=== PATIENT | female | born 1935 | race Caucasian/White ===

== ENCOUNTER 2016-06-07 11:15 | Inpatient (IN) | payer BC, OTHER ==
[~2016-06-07] VITALS: Ht 162.6 cm; Wt 67.0 kg
[~2016-06-07 11:15] MED LIST: ACET500C6 PO; ALBU1AER9 INH; BACL10TA PO; BIOT1TAB5 PO; BUDE0.5S NEB; CHOL2000 PO; DILT120C51 PO; DOCU-94 PO; IPRASOL4 INH; ONDA4TAB46 PO; OXGN; POLY335040 PO; PRED-603 PO; PRED20TA PO; PRLSR20 PO; SENN-61 PO; SERT1TAB88 PO; TPRSR/50 PO; TRAM-10 PO; WARF5TAB90 PO; ZAFI1TAB10 PO
[2016-06-07] MEDS ORDERED: METHYLPREDNISOLONE 125 MG VIAL IV STA (12:00)
--- NOTE | 2016-06-07 12:08 | EMERGENCY ROOM VISIT NOTE ---
History Report prepared by Hiram: Katt Silva Under the Supervision of: Dr. Freddy Forde M.D. First contact with patient: 11:53 Chief Complaint: REFERRED BY DOCTOR Stated Complaint: INFECTION History of Present Illness The patient is a 80 year old female who presents to the Emergency Room with complaints of persistent shortness of breath that began May 18. She currently rates her discomfort as a 6/10 in severity. The patient states that she has a history of COPD and states that she has taken two rescue kits since May 18. She states that her symptoms have persisted and her PCP does not want her to use a third. The patient states that her PCP referred her to the emergency department for IV antibiotics, but she denies having any lab work or chest x-rays prior to arrival. She states that she has been taking five breathing treatments at home per day. The patient notes a productive cough. She states that she wears supplemental oxygen at night. Source of History: patient Onset: May 18 Position: other (global) Symptom Intensity: 6/10 Quality: other (shortness of breath) Timing: other (persistent) Associated Symptoms: + cough Review of Systems See HPI for pertinent positives & negatives. A total of 10 systems reviewed and were otherwise negative. Past Medical & Surgical Medical Problems: (1) Bronchiectasis (2) COPD, severe (3) GERD (gastroesophageal reflux disease) (4) HTN (hypertension) (5) Paroxysmal a-fib Surgical Problems: (1) H/O hernia repair (2) H/O: hysterectomy (3) History of cataract surgery (4) History of cholecystectomy (5) S/P lobectomy of lung Family History Diabetes mellitus Hypertension Social History Smoking Status: Never Smoker Alcohol Use: none Drug Use: none Marital Status: Housing Status: lives with significant other Occupation Status: retired Current/Historical Medications Scheduled Biotin (Biotin), 1,000 MCG PO QPM Budesonide Soln (Pulmicort Respules 0.5MG/2ML), 1 VIAL NEB BID Dvgzmru-Tufuulfqq-Wqog (Calcium Magnesium & Zinc), 1 TAB PO DAILY Cholecalciferol (Vitamin D3), 2,000 INTER.UNIT PO QPM Diltiazem Hcl Coated Beads (Cardizem Cd), 240 MG PO DAILY Docusate Sodium (Colace), 100 MG PO BID Metoprolol Succinate (Metoprolol Succinate ER), 50 MG PO QAM Omeprazole (Prilosec), 20 MG PO QAM Oxygen (Oxygen), 2 LITERS NA HS Polyethylene (Miralax Powder Packet), 17 GM PO BID Senna (Senokot), 1 TAB PO QAM Sertraline HCl (Sertraline HCl), 25 MG PO QAM Warfarin Sodium (Coumadin), 5 MG PO DAILY Zafirlukast (Accolate), 20 MG PO BID Scheduled PRN Acetaminophen (Acetaminophen), 1,000 MG PO Q8 PRN for Pain Albuterol (Proair Hfa), 2 PUFFS INH Q6H PRN for SOB/Wheezing Doxycycline Hyclate (Doxycycline Hyclate), 100 MG PO BID PRN for COPD rescue kit Ipratropium-Albuterol (Duoneb), 1 TREATMENT INH Q6H PRN for SOB/Wheezing Ondansetron Hcl (Zofran), 4 MG PO for Nausea Prednisone (Deltasone), 20 MG PO UD PRN for COPD rescue kit Allergies Coded Allergies: Ciprofloxacin (Verified Allergy, Intermediate, hives, itching, 04/27/16) Amoxicillin (Verified Allergy, Mild, itching,TOLERATING ZOSYN 01/04/14, 04/27) Clavulanic Acid (Verified Allergy, Mild, ITCHING,TOLERATING ZOSYN 01/04/14 , 04/27/16) Alendronate (Verified Adverse Reaction, Unknown, feet and hand pain, ) Levofloxacin (Verified Adverse Reaction, Unknown, muscle pain, 04/27/16) Physical Exam Vital Signs Date Time Temp Pulse Resp B/P Pulse Ox O2 Delivery O2 Flow Rate FiO2 06/07/16 14:35 79 17 159/95 95 06/07/16 13:58 79 06/07/16 13:51 79 17 159/95 95 Nasal Cannula 2.0 06/07/16 12:21 82 18 145/90 94 Nasal Cannula 2.0 06/07/16 12:19 84 06/07/16 11:21 37.0 88 22 163/87 93 Physical Exam GENERAL: Patient is chronically unwell appearing. HEENT: No acute trauma, normocephalic atraumatic, mucous membranes moist, no nasal congestion, no scleral icterus. NECK: No stridor, no adenopathy, no meningismus, trachea is midline. LUNGS: Diffuse loud wheezing and junky cough noted. Dyspneic appearing. HEART: Regular rate and rhythm. No murmurs, rubs, gallops appreciated. ABDOMEN: Soft, nontender, bowel sounds positive, no masses appreciated, no peritonitis. BACK: No midline tenderness, no CVA tenderness EXTREMITIES: Normal motion all extremities, no cyanosis, no edema. NEUROLOGIC: Alert and oriented, no acute motor or sensory deficits, no focal weakness, cranial nerves grossly intact. SKIN: No rash, no jaundice, no diaphoresis. Medical Decision & Procedures ER Provider Diagnostic Interpretation: X ray results are stated below per my interpretation and the radiologist's interpretation. CHEST ONE VIEW PORTABLE CLINICAL HISTORY: Shortness of breath. COMPARISON STUDY: Chest radiograph February 19, 2016. FINDINGS: There is no pneumothorax. A right lower hemithorax partially calcified abnormality is unchanged. Blunting of both costophrenic angles is chronic. Cardiomediastinal silhouette is stable. Mild interstitial thickening is unchanged. There is no evidence for pulmonary edema. IMPRESSION: No acute findings. No change in appearance of the chest. Electronically signed by: Suraj Pope M.D. 06/07/2016 12:49 PM Dictated Date/Time: 06/07/2016 12:47 PM Laboratory Results 06/07/16 12:55 Red Blood Count 4.18, Mean Corpuscular Volume 98.3, Mean Corpuscular Hemoglobin 32.3, Mean Corpuscular Hemoglobin Concent 32.8, Mean Platelet Volume 10.0, Neutrophils (%) (Auto) 83.5, Lymphocytes (%) (Auto) 5.5, Monocytes (%) (Auto) 6.6, Eosinophils (%) (Auto) 0.0, Basophils (%) (Auto) 0.2, Neutrophils # (Auto) 7.62, Lymphocytes # (Auto) 0.50, Monocytes # (Auto) 0.60, Eosinophils # (Auto) 0.00, Basophils # (Auto) 0.02 06/07/16 12:55 Test 06/07/16 12:55 06/07/16 13:03 White Blood Count 9.12 K/uL (4.8-10.8) Red Blood Count 4.18 M/uL (4.2-5.4) Hemoglobin 13.5 g/dL (12.0-16.0) Hematocrit 41.1 % (37-47) Mean Corpuscular Volume 98.3 fL (80-100) Mean Corpuscular Hemoglobin 32.3 pg (25-34) Mean Corpuscular Hemoglobin Concent 32.8 g/dl (32-36) Platelet Count 176 K/uL (130-400) Mean Platelet Volume 10.0 fL (7.4-10.4) Neutrophils (%) (Auto) 83.5 % Lymphocytes (%) (Auto) 5.5 % Monocytes (%) (Auto) 6.6 % Eosinophils (%) (Auto) 0.0 % Basophils (%) (Auto) 0.2 % Neutrophils # (Auto) 7.62 K/uL (1.4-6.5) Lymphocytes # (Auto) 0.50 K/uL (1.2-3.4) Monocytes # (Auto) 0.60 K/uL (0.11-0.59) Eosinophils # (Auto) 0.00 K/uL (0-0.5) Basophils # (Auto) 0.02 K/uL (0-0.2) RDW Standard Deviation 61.6 fL (36.4-46.3) RDW Coefficient of Variation 17.2 % (11.5-14.5) Immature Granulocyte % (Auto) 4.2 % Immature Granulocyte # (Auto) 0.38 K/uL (0.00-0.02) Nucleated RBC Absolute Count (auto) 0.16 K/uL (0-0) Nucleated Red Blood Cells % 1.8 % Prothrombin Time 16.2 SECONDS (9.0-12.0) Prothromb Time International Ratio 1.5 (0.9-1.1) Anion Gap 12.0 mmol/L (3-11) Est Creatinine Clear Calc Drug Dose 73.0 ml/min Estimated GFR () 99.6 Estimated GFR (Non- 85.9 BUN/Creatinine Ratio 17.6 (10-20) Calcium Level 8.3 mg/dl (8.5-10.1) Total Creatine Kinase 36 U/L (26-192) Creatine Kinase MB 1.6 ng/ml (0.5-3.6) Creatine Kinase MB Ratio 4.4 (0-3.0) Troponin I < 0.015 ng/ml (0-0.045) Bedside Lactic Acid Venous 3.43 mmol/L (0.90-1.70) Laboratory results as reviewed by me. Medications Administered Medications (Trade) Dose Ordered Sig/Toro Route Start Time Stop Time Status Last Admin Dose Admin Methylprednisolone Sodium Succinate (Solu-Medrol IV) 125 mg NOW STAT IV 06/07/16 12:00 06/07/16 12:02 DC 06/07/16 12:29 125 MG ECG Indication: SOB/dyspnea Rate (beats per minute): 82 Rhythm: normal sinus Findings: PVC, no acute ischemic change ED Course 1156: The patient was evaluated in room A3. A complete history and physical exam was performed. 1200: Ordered Solu-Medrol IV 125 mg IV. 1300: Ordered Doxycycline Hyclate 100 mg/Dextrose 110 ml @ 50 mls/hr IV. 1308: I discussed the patient's case with Lamine Casillas. She is going to evaluate the patient for further treatment. Medical Decision Differential: Infectious, Reactive Airway Disease, Pneumonia, Pneumothorax, COPD , CHF, ACS, Pulmonary Embolism, MSK, GI, Dissection, amongst other etiologies entertained. 80 yr old female arrives with complaint of shortness of breath despite multiple rounds of steroids as outpatient. Due to hospital being full patient was sent to ED to be admitted as unable to do direct admit. She is stable though lungs sound quite poor. No clear evidence sepsis but will send of cultures prior to starting IV abx (go with Nicole given her allergy history). She has failed outpatient COPD treatment thus this seems reasonable to bring in to hospital. No evidence of CHF, ACS and with history I do not feel this represents PE. Consults Time Called: 1306 Consulting Physician: Lamine Casillas Returned Call: 1308 I discussed the patient's case with Lamine Casillas. She is going to evaluate the patient for further treatment. Impression Primary Impression: COPD exacerbation Additional Impression: Failure of outpatient treatment Scribe Attestation The scribe's documentation has been prepared under my direction and personally reviewed by me in its entirety. I confirm that the note above accurately reflects all work, treatment, procedures, and medical decision making performed by me. Departure Information Dispostion Being Evaluated By Hospitalist Referrals Mamadou Torre M.D. ([facility]) (PCP) Problem Qualifiers
--- NOTE | 2016-06-07 12:50 | DIAGNOSTIC IMAGING REPORT ---
CHEST ONE VIEW PORTABLE CLINICAL HISTORY: Shortness of breath. COMPARISON STUDY: Chest radiograph February 19, 2016. FINDINGS: There is no pneumothorax. A right lower hemithorax partially calcified abnormality is unchanged. Blunting of both costophrenic angles is chronic. Cardiomediastinal silhouette is stable. Mild interstitial thickening is unchanged. There is no evidence for pulmonary edema. IMPRESSION: No acute findings. No change in appearance of the chest. Electronically signed by: Suraj Pope M.D. 06/07/2016 12:49 PM Dictated Date/Time: 06/07/2016 12:47 PM
[2016-06-07] MEDS ORDERED: NAPR1TAB9 PO (12:55)
[2016-06-07] MEDS ORDERED: DOXYCYCLINE IV 100 MG in DEXTROSE 5% 100ML 100 ML IV SCH (13:00)
[2016-06-07 13:05] LABS: BASO % 0.2 %; BASO ABS # 0.02 K/uL (0-0.2); COMPLETE YES; HEMATOCRIT 41.1 % (37-47); IG% 4.2 %; LYMPH % 5.5 %; MEAN CELL VOLUME 98.3 fL (80-100); MEAN CORPUSCULAR HEMOGLOBIN 32.3 pg (25-34); MEAN CORPUSCULAR HGB CONC 32.8 g/dl (32-36); MONO % 6.6 %; NEUT % 83.5 %; PLATELET COUNT 176 K/uL (130-400); RED BLOOD COUNT 4.18 M/uL (4.2-5.4); WHITE BLOOD COUNT 9.12 K/uL (4.8-10.8)
[2016-06-07 13:24] LABS: BLOOD UREA NITROGEN 11 mg/dl (7-18); BUN/CREATININE RATIO 17.6 (10-20); CALCIUM 8.3 mg/dl (8.5-10.1); CARBON DIOXIDE 29 mmol/L (21-32); CHLORIDE 98 mmol/L (98-107); CREATININE 0.63 mg/dl (0.60-1.20); GLUCOSE 267 mg/dl (70-99); POTASSIUM 3.9 mmol/L (3.5-5.1); SODIUM 139 mmol/L (136-145)
[2016-06-07 13:29] LABS: CKMB/CK RATIO 4.4 (0-3.0)
[2016-06-07] MEDS ORDERED: ONDANSETRON INJ 2 MG/ML 2 ML VIAL IV PRN (13:45)
[2016-06-07 14:35] VITALS: BP 166/89; PULSE 80; TEMP 37; O2SAT 98; BMI 25.7
[2016-06-07 14:42] LABS: INR 1.5 (0.9-1.1); PROTHROMBIN TIME (PATIENT) 16.2 SECONDS (9.0-12.0)
[2016-06-07] MEDS ORDERED: CALC1TAB27 PO (14:51)
[2016-06-07] MEDS ORDERED: DXY100 PO (14:51)
[2016-06-07] MEDS ORDERED: CEFTRIAXONE SOD INJ 1 GM in DEXTROSE 5% ADD-VANTAGE 50ML 50 ML IV SCH (15:30)
[2016-06-07] MEDS: ALBUT/IPRATROP 3MG/0.5MG NEB 3 ML VIAL INH SCH ×2 (15:30→19:52)
[2016-06-07 16:00] VITALS: O2SAT 98
[2016-06-07] MEDS ORDERED: AZITHROMYCIN IV 500 MG in DEXTROSE 5% 250ML 250 ML IV SCH (16:00)
--- NOTE | 2016-06-07 16:09 | History and Physical ---
History & Physical Date & Time of Service: Jun 07, 2016 at 15:50 Chief Complaint: Shortness of Breath Primary Care Physician: Mamadou Torre M.D.([facility]) History of Present Illness 80 year old female who was referred to the ER by her PCP for shortness of breath. Patient has severe COPD. She she reports she started getting sick a few weeks ago. She reports she has completed 2 rescue kits which include doxycycline and prednisone and recently started a 3rd. She also has been using her nebulizer routinely. Despite these treatments her shortness of breath continues. She also has had a cough productive for cream colored mucous. She reports constant chest heaviness the past two days. She reports mild lightheadedness and dizziness but no syncopal events. She denies fever and chills. No abdominal pain, nausea, vomiting, or diarrhea. She denies any urinary symptoms. In the ER, patient has conversational dyspnea. She was given solu-medrol 125mg IV. She is saturating well on 2L oxygen via NC. Past Medical/Surgical History Medical Problems: (1) Bronchiectasis Status: Chronic (2) COPD, severe Status: Chronic (3) GERD (gastroesophageal reflux disease) Status: Chronic (4) HTN (hypertension) Status: Chronic (5) Paroxysmal a-fib Status: Chronic Surgical Problems: (1) H/O hernia repair Status: Chronic (2) H/O: hysterectomy Status: Chronic (3) History of cataract surgery Status: Chronic (4) History of cholecystectomy Status: Chronic (5) S/P lobectomy of lung Status: Chronic Family History Diabetes mellitus MOTHER FH: CHF (congestive heart failure) MOTHER Social History Smoking Status: Never Smoker Alcohol Use: none Immunizations History of Influenza Vaccine: Yes Influenza Vaccine Date: Jan 17, 2016 History of Tetanus Vaccine?: Yes Tetanus Immunization Date: Nov 06, 2010 History of Pneumococcal: Yes Pneumococcal Date: Sep 23, 2014 Multi-Drug Resistant Organisms History of MDRO: No Allergies Coded Allergies: Ciprofloxacin (Verified Allergy, Intermediate, hives, itching, 04/27/16) Amoxicillin (Verified Allergy, Mild, itching,TOLERATING ZOSYN 01/04/14, 04/27) Clavulanic Acid (Verified Allergy, Mild, ITCHING,TOLERATING ZOSYN 01/04/14 , 04/27/16) Alendronate (Verified Adverse Reaction, Unknown, feet and hand pain, ) Levofloxacin (Verified Adverse Reaction, Unknown, muscle pain, 04/27/16) Home Medications Scheduled Biotin (Biotin), 1,000 MCG PO QPM Budesonide Soln (Pulmicort Respules 0.5MG/2ML), 1 VIAL NEB BID Vmrxwmb-Glwuwecro-Mphh (Calcium Magnesium & Zinc), 1 TAB PO DAILY Cholecalciferol (Vitamin D3), 2,000 INTER.UNIT PO QPM Diltiazem Hcl Coated Beads (Cardizem Cd), 240 MG PO DAILY Docusate Sodium (Colace), 100 MG PO BID Metoprolol Succinate (Metoprolol Succinate ER), 50 MG PO QAM Omeprazole (Prilosec), 20 MG PO QAM Oxygen (Oxygen), 2 LITERS NA HS Polyethylene (Miralax Powder Packet), 17 GM PO BID Senna (Senokot), 1 TAB PO QAM Sertraline HCl (Sertraline HCl), 25 MG PO QAM Warfarin Sodium (Coumadin), 5 MG PO DAILY Zafirlukast (Accolate), 20 MG PO BID Scheduled PRN Acetaminophen (Acetaminophen), 1,000 MG PO Q8 PRN for Pain Albuterol (Proair Hfa), 2 PUFFS INH Q6H PRN for SOB/Wheezing Doxycycline Hyclate (Doxycycline Hyclate), 100 MG PO BID PRN for COPD rescue kit Ipratropium-Albuterol (Duoneb), 1 TREATMENT INH Q6H PRN for SOB/Wheezing Ondansetron Hcl (Zofran), 4 MG PO for Nausea Prednisone (Deltasone), 20 MG PO UD PRN for COPD rescue kit Review of Systems 10 point review of systems was completed with the pertinent positives and negatives noted per the HPI Physical Exam Vital Signs Date Time Temp Pulse Resp B/P Pulse Ox O2 Delivery O2 Flow Rate FiO2 06/07/16 14:35 79 17 159/95 95 06/07/16 13:58 79 06/07/16 13:51 79 17 159/95 95 Nasal Cannula 2.0 06/07/16 12:21 82 18 145/90 94 Nasal Cannula 2.0 06/07/16 12:19 84 06/07/16 11:21 37.0 88 22 163/87 93 General Appearance: + mild distress (conversational dyspnea) Head: normocephalic Eyes: normal inspection ENT: hearing grossly normal Neck: supple, no JVD Respiratory/Chest: + respiratory distress (mild conversational dyspnea, saturating well on 2L), + decreased breath sounds, + rhonchi, + wheezing ( expiratory) Cardiovascular: regular rate, rhythm, + pertinent finding (trace edema BLLE) Abdomen/GI: normal bowel sounds, non tender, soft Extremities/Musculoskelatal: normal inspection, no calf tenderness Neurologic/Psych: no motor/sensory deficits, alert, normal mood/affect, oriented x 3 Skin: normal color, warm/dry Diagnostics Laboratory Results Results Past 24 Hours Test 06/07/16 12:55 06/07/16 13:03 06/07/16 15:38 Range/Units White Blood Count 9.12 4.8-10.8 K/uL Red Blood Count 4.18 4.2-5.4 M/uL Hemoglobin 13.5 12.0-16.0 g/dL Hematocrit 41.1 37-47 % Mean Corpuscular Volume 98.3 80-100 fL Mean Corpuscular Hemoglobin 32.3 25-34 pg Mean Corpuscular Hemoglobin Concent 32.8 32-36 g/dl Platelet Count 176 130-400 K/uL Mean Platelet Volume 10.0 7.4-10.4 fL Neutrophils (%) (Auto) 83.5 % Lymphocytes (%) (Auto) 5.5 % Monocytes (%) (Auto) 6.6 % Eosinophils (%) (Auto) 0.0 % Basophils (%) (Auto) 0.2 % Neutrophils # (Auto) 7.62 1.4-6.5 K/uL Lymphocytes # (Auto) 0.50 1.2-3.4 K/uL Monocytes # (Auto) 0.60 0.11-0.59 K/uL Eosinophils # (Auto) 0.00 0-0.5 K/uL Basophils # (Auto) 0.02 0-0.2 K/uL RDW Standard Deviation 61.6 36.4-46.3 fL RDW Coefficient of Variation 17.2 11.5-14.5 % Immature Granulocyte % (Auto) 4.2 % Immature Granulocyte # (Auto) 0.38 0.00-0.02 K/uL Nucleated RBC Absolute Count (auto) 0.16 0-0 K/uL Nucleated Red Blood Cells % 1.8 % Prothrombin Time 16.2 9.0-12.0 SECONDS Prothromb Time International Ratio 1.5 0.9-1.1 Sodium Level 139 136-145 mmol/L Potassium Level 3.9 3.5-5.1 mmol/L Chloride Level 98 98-107 mmol/L Carbon Dioxide Level 29 21-32 mmol/L Anion Gap 12.0 3-11 mmol/L Blood Urea Nitrogen 11 7-18 mg/dl Creatinine 0.63 0.60-1.20 mg/dl Est Creatinine Clear Calc Drug Dose 73.0 ml/min Estimated GFR () 99.6 Estimated GFR (Non- 85.9 BUN/Creatinine Ratio 17.6 10-20 Random Glucose 267 70-99 mg/dl Calcium Level 8.3 8.5-10.1 mg/dl Total Creatine Kinase 36 26-192 U/L Creatine Kinase MB 1.6 0.5-3.6 ng/ml Creatine Kinase MB Ratio 4.4 0-3.0 Troponin I < 0.015 0-0.045 ng/ml Bedside Lactic Acid Venous 3.43 0.90-1.70 mmol/L Microbiology Results 06/07/16 Blood Culture, Received Pending 06/07/16 Blood Culture, Received Pending Diagnostic Radiology CXR IMPRESSION: No acute findings. No change in appearance of the chest. Impression Assessment and Plan COPD EXACERBATION - admit to tele - presenting with increasing cough and shortness of breath x 3 weeks despite use of outpatient rescue kit of prednisone and doxycycline - saturating well on 2L - at home only wears 2L HS; may need O2 eval before discharge - around the clock steroids and nebs, continue home inhaled corticosteroid - no pneumonia on CXR; will use empiric azithromycin and Rocephin - flu PCR swab CHEST PAIN - likely due to COPD exacerbation - EKG shows ST depressions laterally - likely due to hypoxia/SOB - initial trop negative, will continue to trend - recheck EKG in AM LACTIC ACIDEMIA - POC lactic acid 3.4 - likely due to hypoxia - will check serum - IVF - do not suspect sepsis - afebrile, normal WBC, no tachycardia PAROXYSMAL A FIB - currently in NSR - rate controlled on metoprolol and cardizem - continue both - on Coumadin, INR 1.5; will increase Coumadin DVT PROPHYLAXIS - on Coumadin CODE STATUS - Patient is a full code as per my discussion with her. DISPO - In my clinical judgment this beneficiary meets acute admission criteria, established by [facility], that includes being hospitalized through two midnights. VTE Prophylaxis VTE Risk Assessment Done? Y/N: Yes Risk Level: Moderate
[2016-06-07] MEDS: SODIUM CHLORIDE 0.9% 1000ML 1,000 ML IV SCH (16:19)
[2016-06-07] MEDS: WARFARIN SOD 7.5 MG TAB PO SCH (16:27)
[2016-06-07 16:42] VITALS: PULSE 80; O2SAT 94
[2016-06-07] MEDS: BUDESONIDE 0.5 MG/2 ML VIAL (PULMICORT) INH SCH (19:52)
[2016-06-07 19:54] VITALS: BP 137/78; PULSE 79; TEMP 36.6; O2SAT 92
[2016-06-07 19:56] VITALS: PULSE 75; O2SAT 94
[2016-06-07] MEDS: METHYLPREDNISOLONE IV 40 MG in SYRINGE 0 ML IV SCH (20:12)
[2016-06-07] MEDS: DOCUSATE SODIUM 100 MG CAP PO SCH (20:13)
[2016-06-07] MEDS: ZAFIRLUKAST TAB 20 MG TAB PO SCH (20:13)
[2016-06-07] MEDS: POLYETHYLENE (MIRALAX) 17 GM PACK PO SCH (20:14)
[2016-06-08] VITALS (13 sets, daily range): BP systolic 120–159; BP diastolic 55–80; PULSE 68–80; TEMP 36.4–36.8; O2SAT 88–97; BMI 25.4
[2016-06-08] MEDS: ALBUT/IPRATROP 3MG/0.5MG NEB 3 ML VIAL INH SCH ×4 (03:40→19:35)
[2016-06-08] MEDS: SODIUM CHLORIDE 0.9% 1000ML 1,000 ML IV SCH ×3 (03:50→12:00)
[2016-06-08] MEDS: METHYLPREDNISOLONE IV 40 MG in SYRINGE 0 ML IV SCH ×3 (04:00→21:02)
[2016-06-08] MEDS: BUDESONIDE 0.5 MG/2 ML VIAL (PULMICORT) INH SCH ×2 (07:08→20:00)
[2016-06-08 07:49] LABS: HEMATOCRIT 41.2 % (37-47); MEAN CELL VOLUME 98.1 fL (80-100); MEAN CORPUSCULAR HEMOGLOBIN 31.9 pg (25-34); MEAN CORPUSCULAR HGB CONC 32.5 g/dl (32-36); PLATELET COUNT 162 K/uL (130-400); WHITE BLOOD COUNT 8.28 K/uL (4.8-10.8)
[2016-06-08 07:58] LABS: INR 1.5 (0.9-1.1); PROTHROMBIN TIME (PATIENT) 16.1 SECONDS (9.0-12.0)
[2016-06-08] MEDS: DOCUSATE SODIUM 100 MG CAP PO SCH ×2 (08:06→20:00)
[2016-06-08] MEDS: POLYETHYLENE (MIRALAX) 17 GM PACK PO SCH ×2 (08:06→20:00)
[2016-06-08] MEDS: PANTOprazole SOD 40 MG TAB PO SCH (08:06)
[2016-06-08] MEDS: SENNA 8.6 MG TAB PO SCH (08:06)
[2016-06-08] MEDS: ZAFIRLUKAST TAB 20 MG TAB PO SCH ×2 (08:06→20:56)
[2016-06-08] MEDS: DILTIAZEM HCL 240 MG CAPCR PO SCH (08:06)
[2016-06-08] MEDS: METOPROLOL SUCC 50MG EXT REL TAB PO SCH (08:07)
[2016-06-08] MEDS: SERTRALINE HCL 50 MG TAB PO SCH (08:08)
[2016-06-08 08:39] LABS: BUN/CREATININE RATIO 27.5 (10-20); CALCIUM 8.4 mg/dl (8.5-10.1); CREATININE 0.56 mg/dl (0.60-1.20); POTASSIUM 4.5 mmol/L (3.5-5.1)
[2016-06-08 08:53] LABS: BETA-HYDROXYBUTYRATE 10.4 mg/dL (0.2-2.81)
[2016-06-08 09:40] LABS: INFLUENZA A PCR Neg for Influ A (NEG); INFLUENZA B PCR Neg for Influ B (NEG)
[2016-06-08] MEDS ORDERED: GLUCAGON FOR INJ 1 MG VIAL SQ PRN (11:30)
[2016-06-08] MEDS ORDERED: GLUCOSE 40% GEL 15 GM TUBE PO PRN (11:30)
[2016-06-08] MEDS ORDERED: GLUCOSE 10 TABS/TUBE PO PRN (11:30)
[2016-06-08] MEDS ORDERED: DEXTROSE 50% 50 ML SYR IV PRN (11:30)
[2016-06-08] MEDS ORDERED: PHARMACY GLYCEMIC MGMT CONSULT PRN (11:39)
--- NOTE | 2016-06-08 11:49 | Progress Note ---
Progress Note ATTENDING NOTE : pt found to be hyperglycemic BSG > 300 no prior hx of DM possible steroid induced, recently completed PO Prednisone rescue kit presented with COPD exacerbation got Solu Medrol 125 mg IV X1 in ED now on 40mg IV 8hrs Hb A1 c on 09/10/15 was 6 ordered for insulin SSI /basal Lantus Pharmacy consulted for glycemic management -case D/w Pharmacist repeat HB A1c in AM Lab elevated Beta hydroxybutyrate > 10 possible due to Hyperglycemia no evidence of DKA, normal Hc03 /Anion gap Increase IVF to 100 ml /hr repeat Beta Hydroxybutyrate in q8rs management of Hyperglycemia as outlined above
[2016-06-08] MEDS ORDERED: INSULIN GLARGINE SOLOSTAR 100 UNITS/ML 3 ML PEN SC ONE (12:00)
[2016-06-08] MEDS: INSULIN ASPART 100 UNITS/ML 3 ML PEN SC SCH ×3 (12:00→21:00)
--- NOTE | 2016-06-08 12:15 | Pharmacy Progress Note ---
Glycemic Control Intl Consult Date of Service Jun 08, 2016. Scope Glycemic Pharmacist consulted for glycemic control and to write orders per [facility] inpatient glycemic control protocol Objective Weight (Kilograms): 67.000 Accuchecks BSG (last 24hrs): Test 06/07/16 12:55 06/08/16 07:38 Random Glucose 267 mg/dl (70-99) 337 mg/dl (70-99) Laboratory Data (last 24hrs) Test 06/07/16 12:55 06/08/16 07:38 Anion Gap 12.0 mmol/L 9.0 mmol/L BUN/Creatinine Ratio 17.6 27.5 Blood Urea Nitrogen 11 mg/dl 15 mg/dl Creatinine 0.63 mg/dl 0.56 mg/dl Potassium Level 3.9 mmol/L 4.5 mmol/L Sodium Level 139 mmol/L 140 mmol/L White Blood Count 9.12 K/uL 8.28 K/uL Red Blood Count 4.18 M/uL Hemoglobin 13.5 g/dL Hematocrit 41.1 % Mean Corpuscular Volume 98.3 fL Mean Corpuscular Hemoglobin 32.3 pg Mean Corpuscular Hemoglobin Concent 32.8 g/dl Platelet Count 176 K/uL Mean Platelet Volume 10.0 fL Neutrophils (%) (Auto) 83.5 % Lymphocytes (%) (Auto) 5.5 % Monocytes (%) (Auto) 6.6 % Eosinophils (%) (Auto) 0.0 % Basophils (%) (Auto) 0.2 % Neutrophils # (Auto) 7.62 K/uL Lymphocytes # (Auto) 0.50 K/uL Monocytes # (Auto) 0.60 K/uL Eosinophils # (Auto) 0.00 K/uL Basophils # (Auto) 0.02 K/uL HbA1c 6.0% on 09/10/15 HbA1c pending for 06/09/16 Recent Pertinent Medications Outpatient Anti-diabetic Regimen: * None Risk Factors for Insulin Resistance: * Steroids: Methylprednisolone 125 mg IV x1 06/07 then 40 mg IV q8h * Infection: COPD exacerbation * Diet: AHA Assessment & Plan ASSESSMENT: * ADA & AACE recommend a goal blood sugar range 140-180 mg/dl for the majority of critically ill & non-critically ill patients. However, more stringent targets may be selected in individual cases. 06/08/16 * 80 yo F with COPD exacerbation and steroid-induced hyperglycemia with random BSG of 337 mg/dL this AM. Per Dr. Watson, was on prednisone 40 mg po q8h for "rescue kit" for COPD exacerbation prior to arrival * HbA1c from August 2015 indicative of pre-diabetes (patient not on any diabetes medications as outpatient). Insulin naive. HbA1c pending for tomorrow. * Will start with high goal range 2nd likely lower HbA1c and insulin-naive * Lantus dose based on BSG and with increments increasing per weight/stress 1 and weight stress 2 * Will start Novolog about what weight and a stress of 2 would suggest * Spoke w RN - not administered at 1200 as ordered as pt had already eaten (so BSG check would not be indicative of insulin required) and pen was not available to cover carbs * Will add in overnight check but at looser parameters to prevent hypoglycemia PLAN FOR INPATIENT GLYCEMIC CONTROL: * Basal insulin with LANTUS BID based on BSG Hold for BSG < 140 mg/dL 6 units for BSG 140-200 mg/dL 10 units for BSG 200 mg/dL or greater * Correctional Insulin with NOVOLOG scale ACHS or Q6hrs while NPO * Goal Range: Low 140 mg/dL - High 180 mg/dL * Correction Factor: 30 mg/dL/unit (40 mg/dL/unit overnight) * Nutritional / Prandial insulin per carb ratio of 1 unit per 12 grams CHO consumed (1 unit per 14 grams CHO consumed overnight) * Please note that the plan above was derived based on current level of insulin resistance and hospital stress. These recommendations are appropriate for inpatient admission only. Plan of care upon discharge will need to be reassessed to avoid potential outpatient hypo/hyperglycemia. Thank you.
[2016-06-08] MEDS: AZITHROMYCIN 250 MG TAB PO SCH (12:33)
[2016-06-08] MEDS ORDERED: INSULIN HUMAN REGULAR SC SCH (16:15)
[2016-06-08] MEDS: WARFARIN SOD 7.5 MG TAB PO SCH (16:20)
[2016-06-08] MEDS: INSULIN GLARGINE SOLOSTAR 100 UNITS/ML 3 ML PEN SC SCH (21:00)
[2016-06-08] MEDS ORDERED: INSULIN GLARGINE SOLOSTAR 100 UNITS/ML 3 ML PEN SC SCH (21:00)
--- NOTE | 2016-06-08 21:24 | Progress Note ---
Internal Med Progress Note Date of Service: Jun 08, 2016. Provider Documentation: SUBJECTIVE: voice still remains hoarse mentions breathing improved minimum SOB , still has significant MCKAY has multiple bruising in arms /skin tears form recent fall OBJECTIVE: Vital Signs-as noted below Exam: General-very pleasant ,no apparent distress Lungs-scattered wheeze, poor air entry Heart-regular S1/S2 Abdomen-soft, n on tender Extremities-multiple bruise in extremities , has skin tear with active bleeding on left arm -from recent fall yesterday Neuro-no focal deficit Lab data as noted below. ASSESSMENT & PLAN: COPD EXACERBATION - presented with increasing cough and shortness of breath x 3 weeks despite use of outpatient rescue kit of prednisone and doxycycline - symptom improved with IV Solu Medrol , Neb tx -cont 2 L ( on 02 a night time only ) CHEST PAIN -symptom resolved - likely due to COPD exacerbation - EKG shows ST depressions laterally - likely due to hypoxia/SOB - troponin negative - HYPERGLYCEMIA pt found to be hyperglycemic BSG > 300 no prior hx of DM possible steroid induced, recently completed PO Prednisone rescue kit presented with COPD exacerbation got Solu Medrol 125 mg IV X1 in ED now on 40mg IV 8hrs Hb A1 c on 09/10/15 was 6 ordered for insulin SSI /basal Lantus Pharmacy consulted for glycemic management -case D/w Pharmacist repeat HB A1c in AM Lab elevated Beta hydroxybutyrate > 10 possible due to Hyperglycemia no evidence of DKA, normal Hc03 /Anion gap Increase IVF to 100 ml /hr repeat Beta Hydroxybutyrate at 1300 normalized ~3 cont management of Hyperglycemia as outlined above PAROXYSMAL A FIB - currently in NSR - rate controlled on metoprolol and cardizem - - on Coumadin, pt presents with significant fall risk -multiple falls in recent days with skin tear , bruise will hold Coumadin need to assess bleeding risk vs risk for stroke off anticoagulation Pt follows with Dr Marquis as out pt will D/w Cardiology hold Coumadin now will allow INR to drift down PT./OT eval requested to assess balance issue DVT PROPHYLAXIS - hold Coumadin for increased bleeding risk CODE STATUS - Patient is a full code DISPOSITION lives at home with elderly with failing health multiple falls at home PT/OT eval prior to discharge medicine follow up with Dr Torre Vital Signs: Date Time Temp Pulse Resp B/P Pulse Ox O2 Delivery O2 Flow Rate FiO2 06/08/16 20:00 91 Nasal Cannula 2.0 06/08/16 19:35 78 18 96 Nasal Cannula 2.0 06/08/16 19:16 36.4 79 18 150/73 94 Room Air 06/08/16 18:44 Room Air 06/08/16 18:00 36.5 80 20 88 2.0 06/08/16 16:00 Nasal Cannula 2.0 06/08/16 16:00 88 Room Air 06/08/16 15:29 36.5 80 20 159/80 94 Nasal Cannula 2.0 06/08/16 15:00 Nasal Cannula 2.0 06/08/16 14:09 72 18 96 Nasal Cannula 2.0 06/08/16 12:03 36.6 74 18 120/65 96 Nasal Cannula 2.0 06/08/16 12:00 Nasal Cannula 2.0 06/08/16 08:00 Nasal Cannula 2.0 06/08/16 07:44 36.6 75 18 159/71 96 Nasal Cannula 2.0 06/08/16 07:08 72 18 92 Nasal Cannula 2.0 06/08/16 04:40 36.7 68 16 124/55 97 Nasal Cannula 2.0 06/08/16 04:00 Nasal Cannula 2.0 06/08/16 03:50 71 18 97 Nasal Cannula 2.0 06/08/16 00:13 36.8 68 20 134/69 94 Nasal Cannula 2.0 06/08/16 00:05 Nasal Cannula 2.0 Lab Results: Results Past 24 Hours Test 06/08/16 00:00 06/08/16 00:57 06/08/16 07:38 06/08/16 13:53 Range/Units Influenza Type A (RT-PCR) Neg for Influ A NEG Influenza Type B (RT-PCR) Neg for Influ B NEG Creatine Kinase MB 1.4 0.5-3.6 ng/ml Creatine Kinase MB Ratio 0-3.0 Troponin I < 0.015 0-0.045 ng/ml White Blood Count 8.28 4.8-10.8 K/uL Red Blood Count 4.20 4.2-5.4 M/uL Hemoglobin 13.4 12.0-16.0 g/dL Hematocrit 41.2 37-47 % Mean Corpuscular Volume 98.1 80-100 fL Mean Corpuscular Hemoglobin 31.9 25-34 pg Mean Corpuscular Hemoglobin Concent 32.5 32-36 g/dl RDW Standard Deviation 61.3 36.4-46.3 fL RDW Coefficient of Variation 17.1 11.5-14.5 % Platelet Count 162 130-400 K/uL Mean Platelet Volume 10.0 7.4-10.4 fL Nucleated RBC Absolute Count (auto) 0.08 0-0 K/uL Nucleated Red Blood Cells % 1.0 % Prothrombin Time 16.1 9.0-12.0 SECONDS Prothromb Time International Ratio 1.5 0.9-1.1 Sodium Level 140 136-145 mmol/L Potassium Level 4.5 3.5-5.1 mmol/L Chloride Level 100 98-107 mmol/L Carbon Dioxide Level 31 21-32 mmol/L Anion Gap 9.0 3-11 mmol/L Blood Urea Nitrogen 15 7-18 mg/dl Creatinine 0.56 0.60-1.20 mg/dl Est Creatinine Clear Calc Drug Dose 78.0 ml/min Estimated GFR () 103.5 Estimated GFR (Non- 89.3 BUN/Creatinine Ratio 27.5 10-20 Random Glucose 337 70-99 mg/dl Calcium Level 8.4 8.5-10.1 mg/dl Beta-Hydroxybutyric Acid 10.40 2.37 0.2-2.81 mg/dL Procalcitonin 0.06 0-0.5 ng/mL Test 06/08/16 16:05 06/08/16 16:06 06/08/16 20:46 06/08/16 22:05 Range/Units Bedside Glucose 347 312 179 70-90 mg/dl Microbiology Results 06/08/16 Gram Stain, Received Pending 06/08/16 Sputum Culture, Received Pending
[2016-06-09] VITALS (11 sets, daily range): BP systolic 127–164; BP diastolic 66–79; PULSE 70–87; TEMP 36.4–36.7; O2SAT 91–95
[2016-06-09] MEDS: ALBUT/IPRATROP 3MG/0.5MG NEB 3 ML VIAL INH SCH ×6 (01:27→19:20)
[2016-06-09] MEDS ORDERED: INSULIN ASPART 100 UNITS/ML 3 ML PEN SC ONE (02:00)
[2016-06-09] MEDS: METHYLPREDNISOLONE IV 40 MG in SYRINGE 0 ML IV SCH ×3 (04:05→20:07)
[2016-06-09] MEDS: ACETAMINOPHEN 325 MG TAB PO PRN (04:45)
[2016-06-09 06:35] LABS: INR 1.9 (0.9-1.1); PROTHROMBIN TIME (PATIENT) 21.3 SECONDS (9.0-12.0)
[2016-06-09 06:47] LABS: ESTIMATED AVERAGE GLUCOSE 220 mg/dl; HA1C FLAG Normal (Normal)
[2016-06-09 06:50] LABS: BUN/CREATININE RATIO 34.5 (10-20); CALCIUM 8.3 mg/dl (8.5-10.1); CREATININE 0.51 mg/dl (0.60-1.20); POTASSIUM 3.9 mmol/L (3.5-5.1)
[2016-06-09] MEDS: BUDESONIDE 0.5 MG/2 ML VIAL (PULMICORT) INH SCH ×2 (07:38→19:20)
[2016-06-09] MEDS: METOPROLOL SUCC 50MG EXT REL TAB PO SCH (08:28)
[2016-06-09] MEDS: DOCUSATE SODIUM 100 MG CAP PO SCH ×2 (08:28→20:10)
[2016-06-09] MEDS: SENNA 8.6 MG TAB PO SCH (08:28)
[2016-06-09] MEDS: POLYETHYLENE (MIRALAX) 17 GM PACK PO SCH ×2 (08:28→20:00)
[2016-06-09] MEDS: SERTRALINE HCL 50 MG TAB PO SCH (08:29)
[2016-06-09] MEDS: DILTIAZEM HCL 240 MG CAPCR PO SCH (08:29)
[2016-06-09] MEDS: PANTOprazole SOD 40 MG TAB PO SCH (08:29)
[2016-06-09] MEDS: ZAFIRLUKAST TAB 20 MG TAB PO SCH ×2 (08:30→20:09)
[2016-06-09] MEDS: TRAMADOL HCL 50 MG TAB PO PRN ×2 (08:35→20:08)
[2016-06-09] MEDS: INSULIN GLARGINE SOLOSTAR 100 UNITS/ML 3 ML PEN SC SCH ×2 (08:40→20:16)
[2016-06-09] MEDS: INSULIN ASPART 100 UNITS/ML 3 ML PEN SC SCH ×4 (08:41→20:17)
[2016-06-09] MEDS: AZITHROMYCIN 250 MG TAB PO SCH (08:44)
[2016-06-09] MEDS ORDERED: NURSING VERBAL MED ORDER ONE (12:15)
[2016-06-09] MEDS ORDERED: NON-FORMULARY PATIENT'S OWN MED EXT PRN (12:30)
--- NOTE | 2016-06-09 12:53 | Pharmacy Progress Note ---
Glycemic Control: Progress Nt Date of Service Jun 09, 2016. Scope Glycemic Pharmacist consulted for glycemic control and to write orders per [facility] inpatient glycemic control protocol. Objective Accuchecks BSG (last 24hrs): Test 06/08/16 16:05 06/08/16 16:06 06/08/16 20:46 06/09/16 02:37 Bedside Glucose 347 mg/dl (70-90) 312 mg/dl (70-90) 179 mg/dl (70-90) 277 mg/dl (70-90) Test 06/09/16 05:31 06/09/16 07:40 06/09/16 11:38 Random Glucose 254 mg/dl (70-99) Bedside Glucose 227 mg/dl (70-90) 296 mg/dl (70-90) Laboratory Data (last 24hrs) Test 06/09/16 05:31 Anion Gap 10.0 mmol/L BUN/Creatinine Ratio 34.5 Blood Urea Nitrogen 18 mg/dl Creatinine 0.51 mg/dl Hemoglobin A1c 9.3 % Potassium Level 3.9 mmol/L Sodium Level 142 mmol/L HbA1c: Test 06/09/16 05:31 Hemoglobin A1c 9.3 % (4.5-5.6) H Recent Pertinent Medications Outpatient Anti-diabetic Regimen: * None The patient is currently receiving: * Basal insulin with LANTUS BID based on BSG Hold for BSG < 140 mg/dL 6 units for BSG 140-200 mg/dL 10 units for BSG 200 mg/dL or greater * Correctional Insulin with NOVOLOG scale ACHS or Q6hrs while NPO * Goal Range: Low 140 mg/dL - High 180 mg/dL * Correction Factor: 30 mg/dL/unit (40 mg/dL/unit overnight) * Nutritional / Prandial insulin per carb ratio of 1 unit per 12 grams CHO consumed (1 unit per 14 grams CHO consumed overnight) Risk Factors for Insulin Resistance: * Steroids: Methylprednisolone 125 mg IV x1 06/07 then 40 mg IV q8h * Infection: COPD exacerbation * Diet: AHA Assessment & Plan ASSESSMENT: * ADA & AACE recommend a goal blood sugar range 140-180 mg/dl for the majority of critically ill & non-critically ill patients. However, more stringent targets may be selected in individual cases. 06/08/16 * 80 yo F with COPD exacerbation and steroid-induced hyperglycemia with random BSG of 337 mg/dL this AM. Per Dr. Watson, was on prednisone 40 mg po q8h for "rescue kit" for COPD exacerbation prior to arrival * HbA1c from August 2015 indicative of pre-diabetes (patient not on any diabetes medications as outpatient). Insulin naive. HbA1c pending for tomorrow. * Will start with high goal range 2nd likely lower HbA1c and insulin-naive * Lantus dose based on BSG and with increments increasing per weight/stress 1 and weight stress 2 * Will start Novolog about what weight and a stress of 2 would suggest * Spoke w RN - not administered at 1200 as ordered as pt had already eaten (so BSG check would not be indicative of insulin required) and pen was not available to cover carbs * Will add in overnight check but at looser parameters to prevent hypoglycemia 06/09/16 * HbA1c increased significantly from August 2015 - up from 6.0% to 9.3%. Multiple "rescue kits" of prednisone for COPD exacerbation likely contributing. * Fasting BSG elevated to 227 mg/dL this AM. OK to be slightly more aggressive on Lantus dosing. But will not increase too much as prandial insulin is best for managing steroid-induced hyperglycemia * BSG's persistently elevated and IV steroids are being maintained at q8h. Will significantly tighten carb ratio. * Will continue overnight BSG check, but tighten to be the same as ACHS parameters * Patient not at very high risk for hypoglycemia 2nd elevated HbA1c - OK to decrease goal range slightly PLAN FOR INPATIENT GLYCEMIC CONTROL: * Increase basal insulin with LANTUS BID based on BSG 0 units for BSG < 120 mg/dL 8 units for BSG 120-199 mg/dL 14 units for BSG 200 mg/dL or greater * Correctional Insulin with NOVOLOG scale ACHS or Q6hrs while NPO - additional check at 0200 * Decrease Goal Range: Low 120 mg/dL - High 160 mg/dL * Correction Factor: 30 mg/dL/unit * Tighten nutritional / prandial insulin per carb ratio of 1 unit per 9 grams CHO consumed * Please note that the plan above was derived based on current level of insulin resistance and hospital stress. These recommendations are appropriate for inpatient admission only. Plan of care upon discharge will need to be reassessed to avoid potential outpatient hypo/hyperglycemia. Thank you.
--- NOTE | 2016-06-09 22:03 | Progress Note ---
Internal Med Progress Note Date of Service: Jun 09, 2016. Provider Documentation: SUBJECTIVE: breathing has improved minimum cough BSG's improved after adjustment of insulin regimen OBJECTIVE: Vital Signs-as noted below Exam: General-very pleasant ,no apparent distress Lungs-+wheeze, Heart-regular S1/S2 Abdomen-soft, n on tender Extremities-multiple bruise in extremities , has skin tear with active bleeding on left arm -from recent fall yesterday Neuro-no focal deficit Lab data as noted below. ASSESSMENT & PLAN: COPD EXACERBATION -improved - presented with increasing cough and shortness of breath x 3 weeks despite use of outpatient rescue kit of prednisone and doxycycline - cont on IV Solu Medrol , Neb tx -cont 2 L ( was on 02 a night time only ) CHEST PAIN -due to above -currently symptom free - - EKG shows ST depressions laterally - likely due to hypoxia/SOB - troponin negative - HYPERGLYCEMIA possible steroid induced, recently completed PO Prednisone rescue kit HB a1 c ~9 ordered for insulin SSI /basal Lantus appreciate Pharmacy consult for glycemic management - PAROXYSMAL A FIB - currently in NSR - rate controlled on metoprolol and cardizem - -was on Coumadin, pt presents with significant fall risk -multiple falls in recent days with skin tear , bruise will hold Coumadin need to assess bleeding risk vs risk for stroke off anticoagulation Pt follows with Dr Marquis as out pt will D/w Cardiology hold Coumadin now will allow INR to drift down PT./OT eval requested to assess balance issue DVT PROPHYLAXIS - hold Coumadin for increased bleeding risk CODE STATUS - Patient is a full code DISPOSITION lives at home with elderly with failing health multiple falls at home PT/OT eval prior to discharge medicine follow up with Dr Torre Vital Signs: Date Time Temp Pulse Resp B/P Pulse Ox O2 Delivery O2 Flow Rate FiO2 06/10/16 16:10 77 18 95 Nasal Cannula 2.0 06/10/16 15:20 Nasal Cannula 2.0 06/10/16 14:52 36.5 84 16 120/66 95 Nasal Cannula 2.0 06/10/16 14:34 95 93 06/10/16 11:10 81 18 96 Nasal Cannula 2.0 06/10/16 08:00 Room Air 06/10/16 07:26 36.2 86 16 155/86 92 06/10/16 07:14 79 16 95 Nasal Cannula 2.0 06/10/16 03:53 89 16 94 Nasal Cannula 2.0 06/10/16 00:07 77 16 96 Nasal Cannula 2.0 06/10/16 00:00 91 Nasal Cannula 2.0 06/09/16 23:25 36.4 75 20 150/66 95 Nasal Cannula 3.0 Lab Results: Results Past 24 Hours Test 06/10/16 02:24 06/10/16 05:28 06/10/16 07:46 06/10/16 11:20 Range/Units Bedside Glucose 207 215 266 70-90 mg/dl Prothrombin Time 24.3 9.0-12.0 SECONDS Prothromb Time International Ratio 2.2 0.9-1.1 Sodium Level 143 136-145 mmol/L Potassium Level 4.0 3.5-5.1 mmol/L Chloride Level 102 98-107 mmol/L Carbon Dioxide Level 32 21-32 mmol/L Anion Gap 9.0 3-11 mmol/L Blood Urea Nitrogen 16 7-18 mg/dl Creatinine 0.49 0.60-1.20 mg/dl Est Creatinine Clear Calc Drug Dose 89.1 ml/min Estimated GFR () 108.2 Estimated GFR (Non- 93.3 BUN/Creatinine Ratio 31.8 10-20 Random Glucose 201 70-99 mg/dl Calcium Level 8.4 8.5-10.1 mg/dl Test 06/10/16 16:18 06/10/16 19:44 Range/Units Bedside Glucose 92 239 70-90 mg/dl
[2016-06-10] VITALS (12 sets, daily range): BP systolic 120–155; BP diastolic 66–86; PULSE 77–95; TEMP 36.2–36.5; O2SAT 91–96
[2016-06-10] MEDS: ALBUT/IPRATROP 3MG/0.5MG NEB 3 ML VIAL INH SCH ×7 (00:06→23:00)
[2016-06-10] MEDS ORDERED: INSULIN ASPART 100 UNITS/ML 3 ML PEN SC SCH (02:00)
[2016-06-10] MEDS: METHYLPREDNISOLONE IV 40 MG in SYRINGE 0 ML IV SCH ×2 (03:08→11:54)
[2016-06-10 06:37] LABS: INR 2.2 (0.9-1.1); PROTHROMBIN TIME (PATIENT) 24.3 SECONDS (9.0-12.0)
[2016-06-10 06:49] LABS: CREATININE 0.49 mg/dl (0.60-1.20)
[2016-06-10 06:50] LABS: BUN/CREATININE RATIO 31.8 (10-20); CALCIUM 8.4 mg/dl (8.5-10.1)
[2016-06-10] MEDS: BUDESONIDE 0.5 MG/2 ML VIAL (PULMICORT) INH SCH ×2 (07:14→19:30)
[2016-06-10] MEDS: METOPROLOL SUCC 50MG EXT REL TAB PO SCH (08:18)
[2016-06-10] MEDS: DOCUSATE SODIUM 100 MG CAP PO SCH ×2 (08:18→19:48)
[2016-06-10] MEDS: SENNA 8.6 MG TAB PO SCH (08:18)
[2016-06-10] MEDS: SERTRALINE HCL 50 MG TAB PO SCH (08:18)
[2016-06-10] MEDS: PANTOprazole SOD 40 MG TAB PO SCH (08:19)
[2016-06-10] MEDS: DILTIAZEM HCL 240 MG CAPCR PO SCH (08:19)
[2016-06-10] MEDS: ZAFIRLUKAST TAB 20 MG TAB PO SCH ×2 (08:20→19:48)
[2016-06-10] MEDS: POLYETHYLENE (MIRALAX) 17 GM PACK PO SCH ×2 (08:20→19:49)
[2016-06-10] MEDS: AZITHROMYCIN 250 MG TAB PO SCH (08:20)
[2016-06-10] MEDS: INSULIN ASPART 100 UNITS/ML 3 ML PEN SC SCH ×4 (08:30→21:37)
[2016-06-10] MEDS: INSULIN GLARGINE SOLOSTAR 100 UNITS/ML 3 ML PEN SC SCH ×2 (08:31→21:37)
[2016-06-11] VITALS (12 sets, daily range): BP systolic 119–163; BP diastolic 68–81; PULSE 62–108; TEMP 36.3–36.7; O2SAT 93–98; BMI 25.4
[2016-06-11] MEDS: ALBUT/IPRATROP 3MG/0.5MG NEB 3 ML VIAL INH SCH ×6 (03:25→23:59)
[2016-06-11 05:58] LABS: INR 1.9 (0.9-1.1); PROTHROMBIN TIME (PATIENT) 20.6 SECONDS (9.0-12.0)
[2016-06-11] MEDS: BUDESONIDE 0.5 MG/2 ML VIAL (PULMICORT) INH SCH ×2 (07:45→20:00)
[2016-06-11] MEDS: METOPROLOL SUCC 50MG EXT REL TAB PO SCH (08:17)
[2016-06-11] MEDS: ZAFIRLUKAST TAB 20 MG TAB PO SCH ×2 (08:17→20:17)
[2016-06-11] MEDS: SENNA 8.6 MG TAB PO SCH (08:17)
[2016-06-11] MEDS: DILTIAZEM HCL 240 MG CAPCR PO SCH (08:17)
[2016-06-11] MEDS: SERTRALINE HCL 50 MG TAB PO SCH (08:17)
[2016-06-11] MEDS: PANTOprazole SOD 40 MG TAB PO SCH (08:18)
[2016-06-11] MEDS: AZITHROMYCIN 250 MG TAB PO SCH (08:18)
[2016-06-11] MEDS: DOCUSATE SODIUM 100 MG CAP PO SCH ×2 (08:18→20:00)
[2016-06-11] MEDS: POLYETHYLENE (MIRALAX) 17 GM PACK PO SCH ×2 (08:19→20:00)
[2016-06-11] MEDS: INSULIN ASPART 100 UNITS/ML 3 ML PEN SC SCH ×4 (09:04→20:14)
[2016-06-11] MEDS: INSULIN GLARGINE SOLOSTAR 100 UNITS/ML 3 ML PEN SC SCH ×2 (09:05→20:00)
[2016-06-11] MEDS ORDERED: INSULIN HUMAN REGULAR PER UNIT 5 UNITS in SYRINGE 4.95 ML IV SCH (12:15)
--- NOTE | 2016-06-11 15:45 | Pharmacy Progress Note ---
Glycemic: Assessment & Plan Date of Service Jun 11, 2016. Assessment & Plan The patient received 58 units of insulin on 06/09, 65 units on 06/10. BSGs ranging 92-519 mg/dl over the past 24hrs. Slightly low yesterday evening due to stacking. FBS near goal range-will continue same basal. High today at lunch- Solumedrol has been switched to prednisone, am insulin may not have had full effect yet, and patient had large carb load at breakfast. Extra 5 units IV insulin given, and will add 0200 check. * Basal insulin: Lantus every 12 hours per protocol if BSG is less than 120, hold Lantus if BSG is 120-199, give 8 units if BSG is 200 or more, give 14 units * Correctional Insulin: Novolog Correction per scale ACHS Goal Range: Low 120 mg/dL - High 160 mg/dL Correction Factor: 30 mg/dL/unit * Prandial insulin: Per carb ratio of 1 unit per 8 grams CHO consumed BSGs continue to improve, no changes needed to inpatient regimen at this time. Pharmacy will continue to monitor patient daily and write orders per [facility] inpatient glycemic control protocol. Thanks. * Please note that the plan above was derived based on current level of insulin resistance and hospital stress. These recommendations are appropriate for inpatient admission only. Plan of care upon discharge will need to be reassessed to avoid potential outpatient hypo/hyperglycemia.
--- NOTE | 2016-06-11 22:35 | Progress Note ---
Internal Med Progress Note Date of Service: Jun 11, 2016. Provider Documentation: SUBJECTIVE: breathing has improved minimum cough blood sugar significantly elevated this AM > 500 pt denies of any blurred vision no nausea or abdominal discomfort OBJECTIVE: Vital Signs-as noted below Exam: General-very pleasant ,no apparent distress Lungs-+wheeze, Heart-regular S1/S2 Abdomen-soft, n on tender Extremities-multiple bruise in extremities -improved after discontinuation of Coumadin Neuro-no focal deficit Lab data as noted below. ASSESSMENT & PLAN: COPD EXACERBATION -improved - presented with increasing cough and shortness of breath x 3 weeks despite use of outpatient rescue kit of prednisone and doxycycline -started on PO prednisone taper dose empiric ABx with Zithromax completed 5 days tx CHEST PAIN -due to above -currently symptom free - - EKG shows ST depressions laterally - likely due to hypoxia/SOB - troponin negative - HYPERGLYCEMIA /TYPE 2 DM pt was found to be pre diabetic on August 2015 Hb A1 ~6 has had multiple COPD exacerbation , requiring steroid tx possible steroid induced, recently completed PO Prednisone rescue kit HB a1 c ~9 on insulin SSI /basal Lantus appreciate Pharmacy consult for glycemic management - pt will be started on PO Metformin for continued hyperglycemia follow up with PCP for diabetic management repeat HB A1c in 3 months PAROXYSMAL A FIB - currently in NSR - rate controlled on metoprolol and cardizem - -was on Coumadin, pt presents with significant fall risk -multiple falls in recent days with skin tear , bruise risk for bleeding /high fall risk out wt benefit of snf anticoagulation Pt follows with Dr Marquis as out pt Coumadin D/tash Aspirin 81 mg for stroke prophylaxis PT./OT eval requested to assess balance issue DVT PROPHYLAXIS - hold Coumadin for increased bleeding risk CODE STATUS - Patient is a full code DISPOSITION Discharge home when medically stable lives at home with elderly with failing health multiple falls at home PT/OT eval prior to discharge medicine follow up with Dr Torre Vital Signs: Date Time Temp Pulse Resp B/P Pulse Ox O2 Delivery O2 Flow Rate FiO2 06/11/16 23:05 36.3 97 18 163/81 95 Nasal Cannula 2.0 06/11/16 20:00 62 16 93 Room Air 06/11/16 20:00 Nasal Cannula 2.0 06/11/16 16:00 95 Room Air 06/11/16 15:36 68 16 94 Room Air 06/11/16 15:33 36.6 101 16 119/68 95 Room Air 06/11/16 15:30 95 Room Air 06/11/16 11:20 80 16 98 Nasal Cannula 2.0 06/11/16 08:30 96 Nasal Cannula 2.0 06/11/16 08:02 36.7 100 16 138/70 96 2.0 06/11/16 07:45 108 16 97 Nasal Cannula 2.0 06/11/16 03:25 71 16 98 Nasal Cannula 2.0 Lab Results: Results Past 24 Hours Test 06/11/16 05:22 06/11/16 07:30 06/11/16 11:33 06/11/16 15:18 Range/Units Prothrombin Time 20.6 9.0-12.0 SECONDS Prothromb Time International Ratio 1.9 0.9-1.1 Bedside Glucose 162 519 118 70-90 mg/dl Test 06/11/16 16:26 06/11/16 20:14 06/11/16 20:42 Range/Units Bedside Glucose 72 56 139 70-90 mg/dl
--- NOTE | 2016-06-11 23:56 | Discharge Instructions ---
Discharge Instructions Admission Reason for Admission: Copd Exacerbation Discharge Discharge Diagnosis / Problem: COPD EXACERBATION Discharge Goals Goal(s): Increase independence, Improve disease control Activity Recommendations Activity Limitations: resume your previous activity . Instructions / Follow-Up Instructions / Follow-Up HOSPITAL FOLLOW UP WITH DR SALDANA ON 06/18/16 @ 11 : 10 AM DO NOT TAKE COUMADIN INCREASE FALL AND BLEEDING RISK ASPIRIN 81 MG DAILY -TO BE TAKEN IN FULL STOMACH FOR STROKE PROPHYLAXIS Current Hospital Diet Patient's current hospital diet: AHA Diet (Heart Healthy) Discharge Diet Recommended Diet: AHA Diet (Heart Healthy) Pending Studies Studies pending at discharge: no Laboratory Results Hemoglobin A1c Test 06/09/16 05:31 Range/Units Estimated Average Glucose 220 mg/dl Hemoglobin A1c 9.3 H 4.5-5.6 % Medical Emergencies . Who to Call and When: Medical Emergencies: If at any time you feel your situation is an emergency, please call 911 immediately. . Non-Emergent Contact Non-Emergency issues call your: Primary Care Provider . . "Provider Documentation" section prepared by Emily Watson. VTE Core Measure Inpt VTE Proph given/why not?: Unfractionated heparin SQ
[2016-06-12] VITALS (7 sets, daily range): BP systolic 100–130; BP diastolic 71–76; PULSE 62–97; TEMP 36.5–36.8; O2SAT 93–98; Ht 162.6 cm; Wt 67.0 kg
[2016-06-12] MEDS ORDERED: PRED20TA2 PO
[2016-06-12] MEDS ORDERED: METF500T5 PO
[2016-06-12] MEDS ORDERED: ASPI81TA28 PO (00:08)
[2016-06-12] MEDS ORDERED: INSULIN ASPART 100 UNITS/ML 3 ML PEN SC SCH (02:00)
[2016-06-12] MEDS: ALBUT/IPRATROP 3MG/0.5MG NEB 3 ML VIAL INH SCH ×3 (02:21→11:39)
[2016-06-12 05:50] LABS: INR 1.3 (0.9-1.1); PROTHROMBIN TIME (PATIENT) 14.6 SECONDS (9.0-12.0)
[2016-06-12] MEDS: BUDESONIDE 0.5 MG/2 ML VIAL (PULMICORT) INH SCH (07:25)
[2016-06-12] MEDS ORDERED: METFORMIN HCL 500 MG TAB PO SCH (08:00)
[2016-06-12] MEDS: SENNA 8.6 MG TAB PO SCH (08:22)
[2016-06-12] MEDS: SERTRALINE HCL 50 MG TAB PO SCH (08:23)
[2016-06-12] MEDS: AZITHROMYCIN 250 MG TAB PO SCH (08:23)
[2016-06-12] MEDS: DILTIAZEM HCL 240 MG CAPCR PO SCH (08:23)
[2016-06-12] MEDS: POLYETHYLENE (MIRALAX) 17 GM PACK PO SCH (08:24)
[2016-06-12] MEDS: DOCUSATE SODIUM 100 MG CAP PO SCH (08:24)
[2016-06-12] MEDS: ZAFIRLUKAST TAB 20 MG TAB PO SCH (08:24)
[2016-06-12] MEDS: PANTOprazole SOD 40 MG TAB PO SCH (08:24)
[2016-06-12] MEDS: METOPROLOL SUCC 50MG EXT REL TAB PO SCH (08:24)
[2016-06-12] MEDS: INSULIN ASPART 100 UNITS/ML 3 ML PEN SC SCH ×2 (08:46→12:45)
[2016-06-12] MEDS: INSULIN GLARGINE SOLOSTAR 100 UNITS/ML 3 ML PEN SC SCH (08:47)
--- NOTE | 2016-06-12 13:51 | Progress Note ---
Subjective Date of Service: Jun 12, 2016. Subjective Pt evaluation today including: conversation w/ patient, physical exam, lab review, review of studies, review of inpatient medication list Saw/examined the patient in room 409 She is doing well, denies shortness of breath or chest benedicto Ran into the side of the bed this morning and lacerated her right smart Two step was performed this morning and patient does not require oxygen She had diabetic education and knows to check her blood sugars Eager to get home Problem List Medical Problems: (1) Bronchitis Status: Acute (2) Colitis Status: Acute (3) COPD (chronic obstructive pulmonary disease) Status: Acute (4) Failure of outpatient treatment Status: Acute (5) Head injury Status: Acute (6) Hypoxia Status: Acute (7) Knee contusion Status: Acute (8) Leukocytosis Status: Acute (9) Low back pain Status: Acute (10) Lower abdominal pain Status: Acute (11) Pneumonia Status: Acute (12) Respiratory failure Status: Acute (13) Right shoulder injury Status: Acute (14) Subtherapeutic anticoagulation Status: Acute Review of Systems Constitutional: No chills, No fever, No weakness Respiratory: No cough, No shortness of breath, No sputum Cardiac: No chest pain, No edema, No palpitations Abdomen: No diarrhea, No nausea, No pain, No vomiting Female : No dysuria, No urinary frequency Heme: No abnormal bleeding/bruising Medications Current Inpatient Medications Medications (Trade) Dose Ordered Sig/Toro Route Start Time Stop Time Status Last Admin Dose Admin Acetaminophen (Tylenol Tab) 650 mg Q4H PRN PO 06/07/16 13:45 07/07/16 13:44 06/09/16 04:45 650 MG Ondansetron HCl (Zofran Inj) 4 mg Q6H PRN IV 06/07/16 13:45 07/07/16 13:44 Budesonide (Pulmicort Respules 0.5MG/ 2ML Neb Soln) 0.5 mg BIDR INH 06/07/16 20:00 07/07/16 19:59 06/12/16 07:25 0.5 MG Diltiazem HCl (Cardizem Cd Cap) 240 mg DAILY PO 06/08/16 09:00 07/08/16 08:59 06/12/16 08:23 240 MG Docusate Sodium (coLACE CAP) 100 mg BID PO 06/07/16 21:00 07/07/16 20:59 06/12/16 08:24 100 MG Metoprolol Succinate (Toprol Xl Tab) 50 mg QAM PO 06/08/16 09:00 07/08/16 08:59 06/12/16 08:24 50 MG Polyethylene (Miralax Powder Packet) 17 gm BID PO 06/07/16 21:00 07/07/16 20:59 06/12/16 08:24 17 GM Senna (Senokot Tab) 8.6 mg QAM PO 06/08/16 09:00 07/08/16 08:59 06/12/16 08:22 8.6 MG Zafirlukast (Accolate Tab) 20 mg BID PO 06/07/16 21:00 07/07/16 20:59 06/12/16 08:24 20 MG Pantoprazole Sodium (Protonix Tab) 40 mg QAM PO 06/08/16 09:00 07/08/16 08:59 06/12/16 08:24 40 MG Sertraline HCl (Zoloft Tab) 25 mg QAM PO 06/08/16 09:00 07/08/16 08:59 06/12/16 08:23 25 MG Glucose (Glucose 40% Gel) 15-30 GRAMS 15 GRAMS... UD PRN PO 06/08/16 11:30 07/08/16 11:29 Glucose (Glucose Chew Tab) 4-8 Tablets 4 Tabl... UD PRN PO 06/08/16 11:30 07/08/16 11:29 Dextrose (Dextrose 50% 50ML Syringe) 25-50ML OF 50% DW IV FOR... UD PRN IV 06/08/16 11:30 07/08/16 11:29 Glucagon (Glucagon Inj) 1 mg UD PRN SQ 06/08/16 11:30 07/08/16 11:29 Miscellaneous Information (Consult Glycemic Management Pharmacy) 1 ea UD PRN N/A 06/08/16 11:39 07/08/16 11:38 Azithromycin (Zithromax Tab) 500 mg QAM PO 06/08/16 12:00 06/14/16 08:59 06/12/16 08:23 500 MG Insulin Aspart (novoLOG ASPART) SLIDING SCALE ACHS SC 06/08/16 12:00 07/08/16 11:59 06/12/16 12:45 2 UNITS Insulin Glargine (Lantus Solostar Pen) BID SC 06/08/16 20:00 07/08/16 20:59 06/12/16 08:47 8 UNIT Albuterol/ Ipratropium (Duoneb) 3 ml Q4R INH 06/09/16 00:00 07/09/16 00:00 06/12/16 11:39 3 ML Tramadol HCl (Ultram Tab) 25 mg Q6H PRN PO 06/09/16 06:15 07/09/16 06:14 06/09/16 20:08 25 MG Non-Formulary Medication (Non-Formulary Patient'S Own Med) 1 ea QID PRN EXT 06/09/16 12:30 07/09/16 12:29 06/10/16 15:37 1 EA Prednisone (PredniSONE TAB) 20 mg BID PO 06/11/16 20:00 07/11/16 19:59 06/12/16 08:24 20 MG Metformin HCl (Glucophage Tab) 500 mg BIDM PO 06/12/16 08:00 07/12/16 07:59 06/12/16 08:22 500 MG Objective Vital Signs Date Time Temp Pulse Resp B/P Pulse Ox O2 Delivery O2 Flow Rate FiO2 06/12/16 12:06 36.5 62 18 130/76 95 Room Air 06/12/16 11:39 87 20 93 Room Air 06/12/16 08:45 94 Nasal Cannula 2.0 06/12/16 08:04 36.8 97 18 100/71 94 06/12/16 07:26 87 20 98 Nasal Cannula 2.0 06/12/16 02:21 77 20 93 Nasal Cannula 2.0 06/12/16 00:00 Nasal Cannula 2.0 06/11/16 23:55 70 18 95 Nasal Cannula 2.0 06/11/16 23:05 36.3 97 18 163/81 95 Nasal Cannula 2.0 06/11/16 20:00 62 16 93 Room Air 06/11/16 20:00 Nasal Cannula 2.0 06/11/16 16:00 95 Room Air 06/11/16 15:36 68 16 94 Room Air 06/11/16 15:33 36.6 101 16 119/68 95 Room Air 06/11/16 15:30 95 Room Air Physical Exam General Appearance: no apparent distress Respiratory/Chest: lungs clear, normal breath sounds, no respiratory distress, no accessory muscle use Cardiovascular: regular rate, rhythm, no edema, no murmur Abdomen: normal bowel sounds, non tender, soft Extremities: + pertinent finding (+right smart laceration, currently dressed and wrapped) Neurologic/Psychiatric: no motor/sensory deficits, alert, normal mood/affect Laboratory Results Last 24 Hours Test 06/11/16 15:18 06/11/16 16:26 06/11/16 20:14 06/11/16 20:42 Bedside Glucose 118 mg/dl 72 mg/dl 56 mg/dl 139 mg/dl Test 06/12/16 01:52 06/12/16 05:33 06/12/16 08:03 06/12/16 11:34 Bedside Glucose 196 mg/dl 136 mg/dl 122 mg/dl Prothrombin Time 14.6 SECONDS Prothromb Time International Ratio 1.3 Assessment and Plan 06/12 - For her COPD exacerbation, she is back to baseline; two step performed today and no oxygen required at home She will be d/c'd on prednisone taper For her DM2, Ha1c = 9.0% and BSGs will remain elevated with prednisone use; diabetic education given Glucometer given; scripts for test strips and lancets are given to the patient - she will check BSGs once daily Metformin started For paroxysmal Atrial Fibrillation, Coumadin is stopped due to bleeding risk - fall risk Will be sent home with home health/home PT, wound care and BSG checks COPD EXACERBATION -improved - presented with increasing cough and shortness of breath x 3 weeks despite use of outpatient rescue kit of prednisone and doxycycline -started on PO prednisone taper dose empiric ABx with Zithromax completed 5 days tx CHEST PAIN -due to above -currently symptom free - - EKG shows ST depressions laterally - likely due to hypoxia/SOB - troponin negative - HYPERGLYCEMIA /TYPE 2 DM pt was found to be pre diabetic on August 2015 Hb A1 ~6 has had multiple COPD exacerbation , requiring steroid tx possible steroid induced, recently completed PO Prednisone rescue kit HB a1 c ~9 on insulin SSI /basal Lantus appreciate Pharmacy consult for glycemic management - pt will be started on PO Metformin for continued hyperglycemia follow up with PCP for diabetic management repeat HB A1c in 3 months PAROXYSMAL A FIB - currently in NSR - rate controlled on metoprolol and cardizem - -was on Coumadin, pt presents with significant fall risk -multiple falls in recent days with skin tear , bruise risk for bleeding /high fall risk out wt benefit of rn long term care anticoagulation Pt follows with Dr Marquis as out pt Coumadin D/tash Aspirin 81 mg for stroke prophylaxis PT./OT eval requested to assess balance issue DVT PROPHYLAXIS - hold Coumadin for increased bleeding risk CODE STATUS - Patient is a full code DISPOSITION Discharge home when medically stable lives at home with elderly with failing health multiple falls at home PT/OT eval prior to discharge medicine follow up with Dr Torre
--- NOTE | 2016-06-12 13:54 | Discharge Summary ---
Discharge Summary Admission Date: Jun 07, 2016 at 14:41 Discharge Date: Jun 11, 2016 Discharge Disposition: Home with services Principal Diagnosis: Acute COPD exacerbation Paroxysmal Atrial Fibrillation DM2 Medication Reconciliation New Medications: Aspirin (Aspirin Ec) 81 Mg Tab 1 TAB PO DAILY for 30 Days, #30 TABS 5 Refills TAKE WITH FULL STOMACH Metformin Hcl Er (Glucophage Er) 500 Mg Tab 500 MG PO BID for 30 Days, #60 TAB 6 Refills Prednisone (Prednisone Tab) 20 Mg Tab 0 PO DAILY, #7 TAB 2 TABS DAILY FOR 2 DAYS, THEN 1 TAB DAILY FOR 2 DAYS, THEN 1/2 TAB DAILY FOR 2 DAYS. Continued Medications: Acetaminophen (Acetaminophen) 500 Mg Cap 1000 MG PO Q8 PRN for Pain Albuterol (Proair Hfa) Aers 2 PUFFS INH Q6H PRN for SOB/Wheezing Biotin (Biotin) 1,000 Mcg Tab 1000 MCG PO QPM Budesonide Soln (Pulmicort Respules 0.5MG/2ML) Nebu 1 VIAL NEB BID [id number] (Calcium Magnesium & Zinc) 1 Tab Tab 1 TAB PO DAILY Cholecalciferol (Vitamin D3) 2,000 Unit Cap 2000 INTER.UNIT PO QPM Diltiazem Hcl Coated Beads (Cardizem Cd) 120 Mg Cap 240 MG PO DAILY Docusate Sodium (Colace) 100 Mg Cap 100 MG PO BID, CAP Doxycycline Hyclate (Doxycycline Hyclate) 100 Mg Cap 100 MG PO BID PRN for COPD rescue kit Ipratropium-Albuterol (Duoneb) 3 Ml Nebu 1 TREATMENT INH Q6H PRN for SOB/Wheezing USE IN PLACE OF RESCUE INHALER Metoprolol Succinate (Metoprolol Succinate ER) 50 Mg Tabcr 50 MG PO QAM, #30 Omeprazole (Prilosec) 20 Mg Capcr 20 MG PO QAM TAKE THIS MEDICATION 30 MINUTES BEFORE FIRST MEAL OF THE DAY. Ondansetron Hcl (Zofran) 4 Mg Tab 4 MG PO PRN for Nausea, TAB Oxygen (Oxygen) Gas 2 LITERS NA HS Polyethylene (Miralax Powder Packet) 17 Gm Pack 17 GM PO BID Prednisone (Deltasone) 20 Mg Tab 20 MG PO UD PRN for COPD rescue kit TAKE 40 MG DAILY FOR 5 DAYS THEN START TAKING 20 MG DAILY FOR 5 DAYS. Senna (Senokot) 8.6 Mg Tab 1 TAB PO QAM, TAB Sertraline HCl (Sertraline HCl) 25 Mg Tab 25 MG PO QAM, #30 Zafirlukast (Accolate) 20 Mg Tab 20 MG PO BID TAKE THIS MEDICATION ON EMPTY STOMACH, ONE HOUR BEFORE OR TWO HOURS AFTER A MEAL. Discontinued Medications: Warfarin Sodium (Coumadin) 5 Mg Tab 5 MG PO DAILY, TAB Admission Information HPI (per Admitting provider): 80 year old female who was referred to the ER by her PCP for shortness of breath. Patient has severe COPD. She she reports she started getting sick a few weeks ago. She reports she has completed 2 rescue kits which include doxycycline and prednisone and recently started a 3rd. She also has been using her nebulizer routinely. Despite these treatments her shortness of breath continues. She also has had a cough productive for cream colored mucous. She reports constant chest heaviness the past two days. She reports mild lightheadedness and dizziness but no syncopal events. She denies fever and chills. No abdominal pain, nausea, vomiting, or diarrhea. She denies any urinary symptoms. In the ER, patient has conversational dyspnea. She was given solu-medrol 125mg IV. She is saturating well on 2L oxygen via NC. Physical Exam (per Admitting): General Appearance: + mild distress (conversational dyspnea) Head: normocephalic Eyes: normal inspection ENT: hearing grossly normal Neck: supple, no JVD Respiratory/Chest: + respiratory distress (mild conversational dyspnea, saturating well on 2L), + decreased breath sounds, + rhonchi, + wheezing ( expiratory) Cardiovascular: regular rate, rhythm, + pertinent finding (trace edema BLLE) Abdomen/GI: normal bowel sounds, non tender, soft Extremities/Musculoskelatal: normal inspection, no calf tenderness Neurologic/Psych: no motor/sensory deficits, alert, normal mood/affect, oriented x 3 Skin: normal color, warm/dry Hospital Course 06/12 - For her COPD exacerbation, she is back to baseline; two step performed today and no oxygen required at home She will be d/c'd on prednisone taper For her DM2, Ha1c = 9.0% and BSGs will remain elevated with prednisone use; diabetic education given Glucometer given; scripts for test strips and lancets are given to the patient - she will check BSGs once daily Metformin started For paroxysmal Atrial Fibrillation, Coumadin is stopped due to bleeding risk - fall risk Will be sent home with home health/home PT, wound care and BSG checks COPD EXACERBATION -improved - presented with increasing cough and shortness of breath x 3 weeks despite use of outpatient rescue kit of prednisone and doxycycline -started on PO prednisone taper dose empiric ABx with Zithromax completed 5 days tx CHEST PAIN -due to above -currently symptom free - - EKG shows ST depressions laterally - likely due to hypoxia/SOB - troponin negative - HYPERGLYCEMIA /TYPE 2 DM pt was found to be pre diabetic on August 2015 Hb A1 ~6 has had multiple COPD exacerbation , requiring steroid tx possible steroid induced, recently completed PO Prednisone rescue kit HB a1 c ~9 on insulin SSI /basal Lantus appreciate Pharmacy consult for glycemic management - pt will be started on PO Metformin for continued hyperglycemia follow up with PCP for diabetic management repeat HB A1c in 3 months PAROXYSMAL A FIB - currently in NSR - rate controlled on metoprolol and cardizem - -was on Coumadin, pt presents with significant fall risk -multiple falls in recent days with skin tear , bruise risk for bleeding /high fall risk out wt benefit of long term care social worker anticoagulation Pt follows with Dr Marquis as out pt Coumadin D/tash Aspirin 81 mg for stroke prophylaxis PT./OT eval requested to assess balance issue DVT PROPHYLAXIS - hold Coumadin for increased bleeding risk CODE STATUS - Patient is a full code DISPOSITION Discharge home when medically stable lives at home with elderly with failing health multiple falls at home PT/OT eval prior to discharge medicine follow up with Dr Saldana Total time spent on discharge = 35 minutes This includes examination of the patient, discharge planning, medication reconciliation, and communication with other providers. Discharge Instructions HOSPITAL FOLLOW UP WITH DR SALDANA ON 06/18/16 @ 11 : 10 AM DO NOT TAKE COUMADIN INCREASE FALL AND BLEEDING RISK ASPIRIN 81 MG DAILY -TO BE TAKEN IN FULL STOMACH FOR STROKE PROPHYLAXIS
[2016-06-12] MEDS: ACETAMINOPHEN 325 MG TAB PO PRN (14:21)
[2017-01-14] MEDS ORDERED: CEFD1CAP14 PO (14:20)
[2017-01-14] MEDS ORDERED: SULF800T23 PO (14:20)
== END 2016-06-12 16:00 | disposition home health service (06) | DRG 191 ==
LOC: ENRESERVDT → ENRESERVTM → C.EDB 11:17 → C.2T 14:41 → C.4E 06-08 18:39
PROVIDERS: ADMIT Internal Medicine; ATTEND Family Medicine
DX: J44.1 Chronic obstructive pulmonary disease with (acute) exacerbation (principal); E87.2 Acidosis; I48.0 Paroxysmal atrial fibrillation; E11.65 Type 2 diabetes mellitus with hyperglycemia; K21.9 Gastro-esophageal reflux disease without esophagitis; R07.9 Chest pain, unspecified; R09.02 Hypoxemia; R94.31 Abnormal electrocardiogram [ECG] [EKG]; T49.6X5A Adverse effect of otorhinolaryngological drugs and preparations, initial encounter; R74.8 Abnormal levels of other serum enzymes; I10 Essential (primary) hypertension; Z90.2 Acquired absence of lung [part of]; Z79.51 Long term (current) use of inhaled steroids; Z99.81 Dependence on supplemental oxygen; Z79.01 Long term (current) use of anticoagulants; Z79.899 Other long term (current) drug therapy; Z79.52 Long term (current) use of systemic steroids

== ENCOUNTER 2016-10-04 12:50 | Emergency (ER) | payer BC, OTHER ==
[~2016-10-04] VITALS: Ht 162.6 cm; Wt 65.0 kg
[~2016-10-04 12:50] MED LIST changes: +ASPI81TA28 PO; -BACL10TA PO; +CALC1TAB27 PO; +DXY100 PO; +METF500T5 PO; -PRED20TA PO; +PRED20TA2 PO; -TRAM-10 PO; -WARF5TAB90 PO
[2016-10-04 13:01] VITALS: TEMP 36.5; Ht 162.6 cm; Wt 65.0 kg
[2016-10-04] MEDS ORDERED: POLY335019 PO (14:39)
[2016-10-04] MEDS ORDERED: PLMINSR5 INH (14:39)
[2016-10-04] MEDS ORDERED: VNTHFA/IN INH (14:39)
[2016-10-04] MEDS ORDERED: ACET-1256 PO (14:39)
[2016-10-04 14:41] LABS: BASO % 0.4 %; BASO ABS # 0.03 K/uL (0-0.2); COMPLETE YES; HEMATOCRIT 40.1 % (37-47); IG% 1.1 %; LYMPH % 7.2 %; LYMPH ABS # 0.55 K/uL (1.2-3.4); MEAN CELL VOLUME 96.6 fL (80-100); MEAN CORPUSCULAR HEMOGLOBIN 29.9 pg (25-34); MEAN CORPUSCULAR HGB CONC 30.9 g/dl (32-36); MEAN PLATELET VOLUME 9.5 fL (7.4-10.4); NEUT % 86.3 %; PLATELET COUNT 202 K/uL (130-400); RED BLOOD COUNT 4.15 M/uL (4.2-5.4); WHITE BLOOD COUNT 7.59 K/uL (4.8-10.8)
[2016-10-04 14:46] LABS: INR 0.9 (0.9-1.1); PARTIAL THROMBOPLASTIN RATIO 0.9; PROTHROMBIN TIME (PATIENT) 9.6 SECONDS (9.0-12.0)
[2016-10-04] MEDS ORDERED: SENN-65 PO (14:48)
[2016-10-04] MEDS ORDERED: METF-384 PO (14:48)
[2016-10-04] MEDS ORDERED: NYSS/ PO (14:48)
[2016-10-04] MEDS ORDERED: ULT50 PO (14:48)
[2016-10-04 15:01] LABS: BUN/CREATININE RATIO 18.5 (10-20); CALCIUM 8.9 mg/dl (8.5-10.1); CREATININE 0.72 mg/dl (0.60-1.20); POTASSIUM 4.3 mmol/L (3.5-5.1)
[2016-10-04 15:07] LABS: URINE APPEARANCE CLEAR (CLEAR); URINE BILIRUBIN NEG (NEG); URINE COLOR YELLOW; URINE NITRITE NEG (NEG); URINE SPECIFIC GRAVITY 1.017 (1.000-1.030); UROBILINOGEN NEG (NEG)
[2016-10-04 15:09] LABS: MANUAL MICROSCOPIC REQUIRED? NO; REVIEW REQ? NO
--- NOTE | 2016-10-04 16:20 | DIAGNOSTIC IMAGING REPORT ---
RIGHT LOWER EXTREMITY VENOUS DOPPLER CLINICAL HISTORY: Right lower leg swelling. COMPARISON STUDY: Right lower extremity venous Doppler April 19, 2015. TECHNIQUE: Sonography of the deep venous system of the right lower extremity was performed. Compression and augmentation were evaluated. FINDINGS: The right common femoral, superficial femoral and popliteal veins were compressible. Augmentation was normal. Flow was shown within the deep calf vessels. IMPRESSION: No evidence of deep venous thrombus within the right lower extremity. Electronically signed by: Suraj Pope M.D. 10/04/2016 4:18 PM Dictated Date/Time: 10/04/2016 4:18 PM
--- NOTE | 2016-10-04 16:33 | EMERGENCY ROOM VISIT NOTE ---
ED Visit Note First contact with patient: 13:16 I have personally seen and evaluated the patient with the physician infertility medical assistant. I agree with the diagnostic/management decisions and have personally been involved in these decisions and agree with the diagnosis.
[2016-10-04 17:17] VITALS: BP 135/76; PULSE 71; O2SAT 94
--- NOTE | 2016-10-06 07:40 | EMERGENCY ROOM VISIT NOTE ---
ED Visit Note First contact with patient: 13:16 Chief Complaint: I might have a blood clot in my right leg. History of Present Illness: Ms. Jin is a 81-year-old white female who ambulates into the ED accompanied by multiple family members. Patient was referred to the ED by her primary care provider, Dr. Torre, to be evaluated for right lower leg swelling to evaluate for DVT or cellulitis. Historically patient reports she has a history of atrial fibrillation for many years ago and she is not currently on blood thinning medication. She denies any previous significant history of DVTs. Patient reports she has been noticing ongoing swelling and redness in the right lower leg that has been ongoing over the last year. She was initially evaluated for this with an x-ray and reported that there was no fractures. She reports every day she notices swelling at the level of the ankle and the 4- 5 cm of the lower leg above the ankle at the end of her day. After waking in the morning the swelling has resolved. Then she noticed redness of the lower leg over the last 2 weeks. She contacted her primary care provider who encouraged her to come to the ED for further evaluation and care. Associated with the redness and swelling she reports she has an achy pain in the area of her redness and swelling. She rates that discomfort 5/10. The pain is nonradiating. She has noticed that the pain has resolved when she wakes up in the morning and slowly increase his during the day as her swelling increases. She has not taken any medications for this discomfort prior to arrival at the hospital. She denies any associated symptoms including fevers, chills, sweats, upper respiratory tract symptoms, worsening shortness of breath ; patient has COPD and reports daily short of breath but it has not exacerbated , chest pain, palpitations, orthopnea, recent surgery/inactivity/extended travel , decreased appetite, abdominal pain, nausea, vomiting, urinary symptoms, hematuria, back/flank pain, extremity weakness/numbness/tingling. Review of Systems: As noted above in history of present illness. At least body systems were reviewed and found to be negative as noted above. Past Medical History: Asthma, pneumonia and (1) Bronchiectasis (2) COPD, severe (3) GERD (gastroesophageal reflux disease) (4) HTN (hypertension) (5) Paroxysmal a-fib Surgical Problems: (1) H/O hernia repair (2) H/O: hysterectomy (3) History of cataract surgery (4) History of cholecystectomy (5) S/P lobectomy of lung Current Medications: Medications Dose Route/Sig Max Daily Dose Days Date Category Dose Instructions Senokot S (Senna/Docusate Sodium) 1 Tab Tab 1 Tab PO BID 10/04/16 Reported Nystatin Suspension (Nystatin) 1 Ml Susp 5 Ml PO UD PRN 10/04/16 Reported SWISH AND SWALLOW Tramadol HCl 50 Mg Tab 50 Mg PO BID PRN 10/04/16 Reported Glucophage (Metformin Hcl) 1,000 Mg Tab 1,000 Mg PO BID 10/04/16 Reported Ventolin Hfa (Albuterol) 200 Puffs/71731 Mcg Aers 2 Puffs INH Q6H PRN 10/04/16 Reported Tylenol (Acetaminophen) 500 Mg Tab 1,000 Mg PO Q8H PRN 10/04/16 Reported Pulmicort Respules 0.5MG/2ML (Budesonide) 0.5 Mg/2 Ml Nebu 2 Ml INH BID 10/04/16 Reported Miralax (Polyethylene Glycol 3350) 1 Pow Pow 17 Gm PO DAILYBL 10/04/16 Reported Calcium Magnesium & Zinc (Bdldmjr-Glqwwskjg-Zzte) 1 Tab Tab 1 Tab PO DAILY 06/07/16 Reported Doxycycline Hyclate 100 Mg Cap 100 Mg PO BID PRN 06/07/16 Reported Sertraline HCl 25 Mg Tab 25 Mg PO QAM 02/19/16 Reported Metoprolol Succinate ER (Metoprolol Succinate) 50 Mg Tabcr 50 Mg PO QAM 02/19/16 Reported Zofran (Ondansetron HCl) 4 Mg Tab 4 Mg PO PRN 09/10/15 Reported Deltasone (Prednisone) 20 Mg Tab 20 Mg PO UD PRN 09/06/15 Reported TAKE 40 MG DAILY FOR 5 DAYS THEN START TAKING 20 MG DAILY FOR 5 DAYS. Colace (Docusate Sodium) 100 Mg Cap 100 Mg PO BID 06/18/15 Reported Vitamin D3 (Cholecalciferol) 2,000 Unit Cap 2,000 Inter.unit PO QPM 09/01/14 Reported Biotin 1,000 Mcg Tab 1,000 Mcg PO QPM 09/01/14 Reported Cardizem Cd (Diltiazem Hcl Coated Beads) 120 Mg Cap 240 Mg PO DAILY 01/01/14 Reported Duoneb (Ipratropium-Albuterol) 3 Ml Nebu 1 Treatment INH Q6H PRN 11/18/[address] OF RESCUE INHALER Accolate (Zafirlukast) 20 Mg Tab 20 Mg PO BID 11/18/13 Reported ONE HOUR BEFORE OR TWO HOURS AFTER A MEAL. Oxygen Gas 2 Liters NA HS 04/08/13 Reported Prilosec (Omeprazole) 20 Mg Capcr 20 Mg PO QAM 04/08/13 Reported TAKE THIS MEDICATION 30 MINUTES BEFORE FIRST MEAL OF THE DAY. Allergies to Medications: Alendronate, amoxicillin, ciprofloxacin, clavulanic acid, levothyroxine. Social History: Patient is not currently employed she is retired; she lives by herself and feels safe in her home environment; she denies tobacco and alcohol use. Physical Examination: Vital Signs: Date Time Temp Pulse Resp B/P (MAP) Pulse Ox O2 Delivery O2 Flow Rate FiO2 10/04/16 17:17 71 18 135/76 94 10/04/16 15:43 82 18 120/60 97 Room Air 10/04/16 13:01 36.5 76 20 123/60 97 Room Air GENERAL: 81-year-old female in no acute distress, nontoxic-appearing, afebrile and hemodynamically stable. NEUROLOGICAL: Awake, alert and oriented to person, place and time. Answering questions appropriately and following commands. Normal gait. Good hand eye coordination. No focal motor sensory deficits. SKIN: Warm, dry and pink. Throughout the patient's by the she has chronic skin changes consistent with long-term steroid use including telangiectasis, purpura and ecchymosis predominantly on the extremities. In her area of swelling of the right lower leg there is no erythema, the skin does not appear cellulitic and is not warm to the touch. There is no lymphangitis. HEENT: Atraumatic and normocephalic. PERRLA. Sclera white and conjunctiva pink. No drainage from naris. Airway patent. Pharynx is nonerythematous or edematous. Speech normal. No lymphadenopathy. Trachea midline. No jugular venous distention. BACK: No tenderness over the bony spine. No CVA tenderness. THORAX: Lungs sounds are decreased in all anderson but clear to auscultation. Symmetrical chest wall. No wheezing, rales or rhonchi. No crepitus, tenderness , subcutaneous air or deformities noted. HEART: Regular rate and rhythm. No gallops, rubs or murmurs are appreciated. ABDOMEN: Flat, soft and nontender. Positive bowel sounds in all quadrants. No guarding, rigidity or organomegaly. EXTREMITIES: Moves all extremities well on command and with purpose. All distal neurovascular statuses are intact and equal bilaterally. RIGHT LOWER EXTREMITY: No gross bony deformity. No tenderness in the knee, ankle or foot. Mild dependent edema over the distal portion of the lower leg extending into the ankle. Once again there is no erythema or cellulitic appearance to the skin. This is nonpitting edema. No calf tenderness or cords. Full range of motion in flexion and extension of the knee, plantar flexion and dorsiflexion of the ankle against resistance. ED Course: Patient is assessed as noted above. Patient's medication list was reviewed. Laboratory Testing: Test 10/04/16 14:19 10/04/16 14:30 Range/Units White Blood Count 7.59 4.8-10.8 K/uL Red Blood Count 4.15 4.2-5.4 M/uL Hemoglobin 12.4 12.0-16.0 g/dL Hematocrit 40.1 37-47 % Mean Corpuscular Volume 96.6 80-100 fL Mean Corpuscular Hemoglobin 29.9 25-34 pg Mean Corpuscular Hemoglobin Concent 30.9 32-36 g/dl Platelet Count 202 130-400 K/uL Mean Platelet Volume 9.5 7.4-10.4 fL Neutrophils (%) (Auto) 86.3 % Lymphocytes (%) (Auto) 7.2 % Monocytes (%) (Auto) 5.0 % Eosinophils (%) (Auto) 0.0 % Basophils (%) (Auto) 0.4 % Neutrophils # (Auto) 6.55 1.4-6.5 K/uL Lymphocytes # (Auto) 0.55 1.2-3.4 K/uL Monocytes # (Auto) 0.38 0.11-0.59 K/uL Eosinophils # (Auto) 0.00 0-0.5 K/uL Basophils # (Auto) 0.03 0-0.2 K/uL RDW Standard Deviation 53.4 36.4-46.3 fL RDW Coefficient of Variation 15.0 11.5-14.5 % Immature Granulocyte % (Auto) 1.1 % Immature Granulocyte # (Auto) 0.08 0.00-0.02 K/uL Prothrombin Time 9.6 9.0-12.0 SECONDS Prothromb Time International Ratio 0.9 0.9-1.1 Activated Partial Thromboplast Time 24.0 21.0-31.0 SECONDS Partial Thromboplastin Ratio 0.9 Sodium Level 140 136-145 mmol/L Potassium Level 4.3 3.5-5.1 mmol/L Chloride Level 102 98-107 mmol/L Carbon Dioxide Level 28 21-32 mmol/L Anion Gap 10.0 3-11 mmol/L Blood Urea Nitrogen 13 7-18 mg/dl Creatinine 0.72 0.60-1.20 mg/dl Est Creatinine Clear Calc Drug Dose 54.7 ml/min Estimated GFR () 92.3 Estimated GFR (Non- 79.7 BUN/Creatinine Ratio 18.5 10-20 Random Glucose 170 70-99 mg/dl Calcium Level 8.9 8.5-10.1 mg/dl Total Bilirubin 0.5 0.2-1 mg/dl Direct Bilirubin 0.1 0-0.2 mg/dl Aspartate Amino Transf (AST/SGOT) 20 15-37 U/L Alanine Aminotransferase (ALT/SGPT) 28 12-78 U/L Alkaline Phosphatase 51 45-117 U/L Total Protein 6.4 6.4-8.2 gm/dl Albumin 3.2 3.4-5.0 gm/dl Urine Color YELLOW Urine Appearance CLEAR CLEAR Urine pH 6.0 4.5-7.5 Urine Specific [place] 1.017 1.000-1.030 Urine Protein NEG NEG Urine Glucose (UA) NEG NEG Urine Ketones NEG NEG Urine Occult Blood NEG NEG Urine Nitrite NEG NEG Urine Bilirubin NEG NEG Urine Urobilinogen NEG NEG Urine Leukocyte Esterase TRACE NEG Urine WBC (Auto) 1-5 0-5 /hpf Urine RBC (Auto) 0-4 0-4 /hpf Urine Hyaline Casts (Auto) 0 0-5 /lpf Urine Epithelial Cells (Auto) 10-20 0-5 /lpf Urine Bacteria (Auto) NEG NEG Right Lower Extremity Venous Doppler Ultrasound: Was reviewed by myself and read by the radiologist and showed no evidence of deep vein thrombus. Patient was offered pain medications and refused. Patient was reassessed multiple times during her stay in the emergency department. Patient's case was reviewed with Dr. Kramer; we agreed on diagnostic approach, treatment, disposition and plan. Patient was educated about today's findings and instructed on her treatment plan ; she verbalizes understanding and agreement with this plan. Clinical Impression: Right lower leg swelling. Decision-Making: Initially my differential diagnosis I considered cellulitis, dependent edema, deep vein thrombus, musculoskeletal injury and other causes. Disposition: Patient discharged home in stable condition accompanied by multiple family members; prior to departure she was reassessed and subjectively reported she was pain-free. Plan: Patient was encouraged to continue her current medications as prescribed by her primary care providers. Patient was encouraged to keep her foot elevated while at rest. Patient was encouraged to contact her PCPs office in the morning and inform them of today's ED visit and request follow-up care and treatment. Patient was encouraged return to the ED for worsening swelling, uncontrolled pain, redness, red streaking, fevers or any new/concerning symptoms.
[2017-01-14] MEDS ORDERED: SULF800T23 PO (14:20)
[2017-01-14] MEDS ORDERED: CEFD1CAP14 PO (14:20)
== END 2016-10-04 17:18 | disposition home or self-care (01) ==
LOC: C.EDB 12:52 → C.EDC 17:18
DX: M79.89 Other specified soft tissue disorders (principal); M79.604 Pain in right leg; I10 Essential (primary) hypertension; J44.9 Chronic obstructive pulmonary disease, unspecified; K21.9 Gastro-esophageal reflux disease without esophagitis

== ENCOUNTER 2017-01-09 02:28 | Emergency (ER) | payer BC ==
[~2017-01-09] VITALS: Ht 162.6 cm; Wt 65.0 kg
[~2017-01-09 02:28] MED LIST changes: +ACET-1256 PO; -ACET500C6 PO; -ALBU1AER9 INH; -ASPI81TA28 PO; -BUDE0.5S NEB; +METF-384 PO; -METF500T5 PO; +NYSS/ PO; +PLMINSR5 INH; +POLY335019 PO; -POLY335040 PO; -PRED20TA2 PO; -SENN-61 PO; +SENN-65 PO; +ULT50 PO; +VNTHFA/IN INH
[2017-01-09 02:34] VITALS: TEMP 37; Ht 162.6 cm; Wt 65.0 kg
[2017-01-09] MEDS ORDERED: CEFTRIAXONE SOD INJ 1 GM ADDVIAL IV STA (02:47)
[2017-01-09] MEDS ORDERED: TRAMADOL HCL 50 MG TAB PO STA (02:47)
[2017-01-09 03:37] LABS: HEMATOCRIT 36.7 % (37-47); MEAN CORPUSCULAR HEMOGLOBIN 27.6 pg (25-34); MEAN PLATELET VOLUME 9.4 fL (7.4-10.4); PLATELET COUNT 264 K/uL (130-400); RED BLOOD COUNT 3.99 M/uL (4.2-5.4); WHITE BLOOD COUNT 15.51 K/uL (4.8-10.8)
[2017-01-09] MEDS ORDERED: PRED20TA PO (03:47)
[2017-01-09] MEDS ORDERED: BACL10TA PO (03:48)
[2017-01-09] MEDS ORDERED: ASPI81TA28 PO (03:50)
[2017-01-09] MEDS ORDERED: FURO-85 PO (03:51)
[2017-01-09] MEDS ORDERED: DILT240C57 PO (03:51)
[2017-01-09 03:58] LABS: BASO % 0.2 %; BASO ABS # 0.03 K/uL (0-0.2); COMPLETE YES; EOS % 0.3 %; IG% 0.4 %; LYMPH % 10.4 %; LYMPH ABS # 1.62 K/uL (1.2-3.4); MONO % 7.2 %; NEUT % 81.5 %; POLYCHROMASIA 1+; TEAR DROP CELLS OCCASIONAL
[2017-01-09 04:00] LABS: BUN/CREATININE RATIO 22.9 (10-20); CALCIUM 8.9 mg/dl (8.5-10.1); CREATININE 0.64 mg/dl (0.60-1.20); POTASSIUM 3.8 mmol/L (3.5-5.1)
[2017-01-09] MEDS ORDERED: METR-162 PO (04:13)
[2017-01-09] MEDS ORDERED: CEFD1CAP14 PO (04:13)
--- NOTE | 2017-01-09 04:13 | EMERGENCY ROOM VISIT NOTE ---
History Report prepared by Hiram: Arnoldo Vaughn Under the Supervision of: Dr. Freddy Forde M.D. First contact with patient: 02:39 Chief Complaint: HAND PAIN/INJURY Stated Complaint: R HAND SWOLLEN History of Present Illness The patient is a 81 year old female who presents to the Emergency Room with complaints of worsening right hand pain beginning several hours ago. She states that her hand is swelling and she cannot fully close it. She denies any falls or trauma, but believes that her cat may have bit her hand earlier today. The cat is fully vaccinated. The patient also complains of back pain, but notes that this is chronic. She takes Baclofen and Prednisone daily for her chronic pain and Tramadol as needed. She has a history of skin infections. The patient is on aspirin but denies using any other blood thinners. She has a history of diabetes and states that her blood sugar has been normal recently. Source of History: patient Onset: Several hours ago Position: hand (right) Quality: other (pain and swelling) Timing: worsening Associated Symptoms: + back pain (chronic) Review of Systems See HPI for pertinent positives & negatives. A total of 10 systems reviewed and were otherwise negative. Past Medical & Surgical Medical Problems: (1) Bronchiectasis (2) COPD, severe (3) GERD (gastroesophageal reflux disease) (4) HTN (hypertension) (5) Paroxysmal a-fib Surgical Problems: (1) H/O hernia repair (2) H/O: hysterectomy (3) History of cataract surgery (4) History of cholecystectomy (5) S/P lobectomy of lung Family History Diabetes mellitus MOTHER FH: CHF (congestive heart failure) MOTHER Social History Smoking Status: Never Smoker Alcohol Use: none Housing Status: lives with significant other Current/Historical Medications Scheduled Aspirin (Aspirin Ec), 81 MG PO DAILY Baclofen (Lioresal), 10 MG PO AMPM Budesonide (Pulmicort Respules 0.5MG/2ML), 2 ML INH HS Cefdinir (Omnicef), 300 MG PO Q12H Cholecalciferol (Vitamin D3), 2,000 INTER.UNIT PO QPM Diltiazem Hcl Coated Beads (Cardizem Cd), 240 MG PO QAM Docusate Sodium (Colace), 100 MG PO BID Home O2 Therapy (Oxygen), 2 LITERS NA HS Metformin Hcl (Glucophage), 1,000 MG PO BID Metoprolol Succinate (Metoprolol Succinate ER), 50 MG PO QAM Metronidazole (Flagyl), 1 TAB PO TID Omeprazole (Prilosec), 20 MG PO QAM Polyethylene Glycol 3350 (Miralax), 17 GM PO DAILYBL Prednisone (Prednisone), 20 MG PO QAM Senna/Docusate Sod (Senokot S), 1 TAB PO every afternoon Sertraline HCl (Sertraline HCl), 25 MG PO QAM Zafirlukast (Accolate), 20 MG PO BID Scheduled PRN Doxycycline Hyclate (Doxycycline Hyclate), 100 MG PO BID PRN for COPD rescue kit Furosemide (Lasix), 10 MG PO DAILY PRN for edema Ipratropium-Albuterol (Duoneb), 1 TREATMENT INH Q4 PRN for SOB/Wheezing Nystatin (Nystatin Suspension), 5 ML PO UD PRN for THRUSH Ondansetron Hcl (Zofran), 4 MG PO Q6 PRN for Nausea Prednisone (Deltasone), 20 MG PO UD PRN for COPD rescue kit Tramadol HCl (Tramadol HCl), 50 MG PO Q6 PRN for back pain Allergies Coded Allergies: Ciprofloxacin (Verified Allergy, Intermediate, hives, itching, 01/09/17) Amoxicillin (Verified Allergy, Mild, itching,TOLERATING ZOSYN 01/04/14, ) Clavulanic Acid (Verified Allergy, Mild, ITCHING,TOLERATING ZOSYN 01/04/14 , 01/09/17) Alendronate (Verified Adverse Reaction, Unknown, feet and hand pain, ) Levofloxacin (Verified Adverse Reaction, Unknown, muscle pain, 01/09/17) Physical Exam Vital Signs Date Time Temp Pulse Resp B/P (MAP) Pulse Ox O2 Delivery O2 Flow Rate FiO2 01/09/17 04:30 78 18 138/84 92 01/09/17 04:13 78 18 138/84 92 Room Air 01/09/17 03:44 74 18 136/55 92 Room Air 01/09/17 02:34 37.0 67 18 132/62 92 Room Air Physical Exam GENERAL: Patient is elderly appearing and in mild distress. HEENT: No acute trauma, normocephalic atraumatic, mucous membranes moist, no nasal congestion, no scleral icterus. NECK: No stridor, no adenopathy, no meningismus, trachea is midline. LUNGS: No dyspnea. Clear to auscultation and equal bilaterally. No wheeze, no rhonchi. HEART: Regular rate and rhythm. No murmurs, rubs, gallops appreciated. EXTREMITIES: Normal motion all extremities, no cyanosis. Swelling of the dorsum of the right hand extending to the mid fingertips. Cellulitic in nature with increased warmth. No fluctuance. Mild pain with ROM. NEUROLOGIC: Alert and oriented, no acute motor or sensory deficits, no focal weakness, cranial nerves grossly intact. SKIN: No rash, no jaundice, no diaphoresis. Medical Decision & Procedures ER Provider Diagnostic Interpretation: Three View Right Hand X-ray interpreted by me: No fracture. No dislocation. No foreign body. Severe osteoarthritis of many joints. Laboratory Results 01/09/17 03:20 Red Blood Count 3.99, Mean Corpuscular Volume 92.0, Mean Corpuscular Hemoglobin 27.6, Mean Corpuscular Hemoglobin Concent 30.0, Mean Platelet Volume 9.4, Neutrophils (%) (Auto) 81.5, Lymphocytes (%) (Auto) 10.4, Monocytes (%) (Auto) 7.2, Eosinophils (%) (Auto) 0.3, Basophils (%) (Auto) 0.2, Neutrophils # (Auto) 12.63, Lymphocytes # (Auto) 1.62, Monocytes # (Auto) 1.12, Eosinophils # (Auto) 0.05, Basophils # (Auto) 0.03 01/09/17 03:20 Test 01/09/17 03:20 White Blood Count 15.51 K/uL (4.8-10.8) Red Blood Count 3.99 M/uL (4.2-5.4) Hemoglobin 11.0 g/dL (12.0-16.0) Hematocrit 36.7 % (37-47) Mean Corpuscular Volume 92.0 fL (80-100) Mean Corpuscular Hemoglobin 27.6 pg (25-34) Mean Corpuscular Hemoglobin Concent 30.0 g/dl (32-36) Platelet Count 264 K/uL (130-400) Mean Platelet Volume 9.4 fL (7.4-10.4) Neutrophils (%) (Auto) 81.5 % Lymphocytes (%) (Auto) 10.4 % Monocytes (%) (Auto) 7.2 % Eosinophils (%) (Auto) 0.3 % Basophils (%) (Auto) 0.2 % Neutrophils # (Auto) 12.63 K/uL (1.4-6.5) Lymphocytes # (Auto) 1.62 K/uL (1.2-3.4) Monocytes # (Auto) 1.12 K/uL (0.11-0.59) Eosinophils # (Auto) 0.05 K/uL (0-0.5) Basophils # (Auto) 0.03 K/uL (0-0.2) RDW Standard Deviation 49.9 fL (36.4-46.3) RDW Coefficient of Variation 14.7 % (11.5-14.5) Immature Granulocyte % (Auto) 0.4 % Immature Granulocyte # (Auto) 0.06 K/uL (0.00-0.02) Polychromasia 1+ Tear Drop Cells OCCASIONAL Anion Gap 7.0 mmol/L (3-11) Est Creatinine Clear Calc Drug Dose 61.6 ml/min Estimated GFR () 98.4 Estimated GFR (Non- 84.9 BUN/Creatinine Ratio 22.9 (10-20) Uric Acid 7.0 mg/dl (2.6-7.2) Calcium Level 8.9 mg/dl (8.5-10.1) Laboratory results as reviewed by me. Medications Administered Medications (Trade) Dose Ordered Sig/Toro Route Start Time Stop Time Status Last Admin Dose Admin Tramadol HCl (Ultram Tab) 50 mg NOW STAT PO 01/09/17 02:47 01/09/17 02:49 DC 01/09/17 03:42 50 MG Ceftriaxone Sodium (Rocephin Inj) 1 gm NOW STAT IV 01/09/17 02:47 01/09/17 02:50 DC 01/09/17 03:40 1 GM Metronidazole (Flagyl Tab) 500 mg NOW STAT PO 01/09/17 04:21 01/09/17 04:22 DC 01/09/17 04:26 500 MG ED Course 0239: The patient was evaluated in room B5. A complete history and physical exam was performed. 0247: Ordered Rocephin Inj 1 gm IV, Ultram Tab 50 mg PO. 0352: Reevaluated the patient. Discussed results and discharge instructions: she verbalized understanding and agreement. The patient is ready for discharge. 0356: I reviewed the patient's case with the pharmacist. They agree that cephalosporins are reasonable. Medical Decision Differential: cellulitis, gout, abscess, fracture, allergic reaction, amongst other pathologies entertained. 81 yr old female arrives with top of right hand erythema. Consistent with cellulitis and no evidence abscess at this time. After talking further with her she admits her cat may have bit her earlier in the day. This would be consistent with rapid onset of cellulitis. Her WBC is modestly elevated consistent with that. Otherwise labs unremarkable. Imaging without FB or fracture. She is afebrile, feeling well and very much does not wish to be in hospital. I had two long discussions about risks of cat bite infections worsening, especially in diabetics on chronic prednisone. She is aware symptoms may worsen and what to monitor for, as well as her daughters are aware. We discussed symptoms that would require return to ED. Allergic amox thus will hold off on augmentin and go with Omnicef + Flagyl. Stable and comfortable with this plan. Medication Reconcilliation Current Medication List: was personally reviewed by me Blood Pressure Screening Patient's blood pressure: Elevated blood pressure Blood pressure disposition: Elevated BP felt to be situational Impression Primary Impression: Cat bite of right hand Additional Impression: Cellulitis of heel, right Scribe Attestation The scribe's documentation has been prepared under my direction and personally reviewed by me in its entirety. I confirm that the note above accurately reflects all work, treatment, procedures, and medical decision making performed by me. Departure Information Dispostion Home / Self-Care Prescriptions Cefdinir (Omnicef) 300 Mg Cap 300 MG PO Q12H for 10 Days, #20 CAP Prov: Freddy Forde M.D. 01/09/17 Metronidazole (FLAGYL) 500 Mg Tab 1 TAB PO TID for 10 Days, #30 TAB Prov: Freddy Forde M.D. 01/09/17 Referrals Mamadou Torre M.D.([facility]) (PCP) Patient Instructions ED Bite Cat, [facility] Problem Qualifiers
[2017-01-09] MEDS ORDERED: METRONIDAZOLE 250 MG TAB PO STA (04:21)
[2017-01-09 04:30] VITALS: BP 138/84; PULSE 78; O2SAT 92
--- NOTE | 2017-01-09 07:08 | DIAGNOSTIC IMAGING REPORT ---
RIGHT HAND MIN 3 VIEWS ROUTINE CLINICAL HISTORY: right hand swelling/pain Right pain. Edema. COMPARISON: None. 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 Moderate degenerative change of the proximal interphalangeal joints. No acute bony abnormality. Mild soft tissue edema. IMPRESSION: Severe degenerative change primarily involving the distal interphalangeal joints. Soft tissue edema. No acute bony abnormality. The above report was generated using voice recognition software. It may contain grammatical, syntax or spelling errors. Electronically signed by: Rojelio Sorto M.D. 01/09/2017 7:07 AM Dictated Date/Time: 01/09/2017 7:05 AM
[2017-01-09] MEDS ORDERED: ACET500T57 PO (11:35)
[2017-01-09] MEDS ORDERED: VNTHFA/IN INH (11:35)
[2017-01-14] MEDS ORDERED: SULF800T23 PO (14:20)
[2017-01-14] MEDS ORDERED: CEFD1CAP14 PO (14:20)
== END 2017-01-09 04:31 | disposition home or self-care (01) ==
LOC: C.EDB 02:29
DX: S61.451A Open bite of right hand, initial encounter (principal); W55.01XA Bitten by cat, initial encounter; L03.115 Cellulitis of right lower limb; I10 Essential (primary) hypertension; I48.91 Unspecified atrial fibrillation; K21.9 Gastro-esophageal reflux disease without esophagitis; J44.9 Chronic obstructive pulmonary disease, unspecified; Z90.710 Acquired absence of both cervix and uterus; Z90.49 Acquired absence of other specified parts of digestive tract; Z98.49 Cataract extraction status, unspecified eye; Z90.2 Acquired absence of lung [part of]; Z79.82 Long term (current) use of aspirin; Z79.84 Long term (current) use of oral hypoglycemic drugs; Z79.899 Other long term (current) drug therapy; Z88.1 Allergy status to other antibiotic agents; Z88.2 Allergy status to sulfonamides; Z88.8 Allergy status to other drugs, medicaments and biological substances; Z83.3 Family history of diabetes mellitus; Z82.49 Family history of ischemic heart disease and other diseases of the circulatory system

== ENCOUNTER 2017-01-09 08:59 | Inpatient (IN) | payer BC, OTHER ==
[~2017-01-09] VITALS: Ht 162.6 cm; Wt 65.0 kg
[~2017-01-09 08:59] MED LIST changes: +ASPI81TA28 PO; +BACL10TA PO; +CEFD1CAP14 PO; +DILT240C57 PO; +FURO-85 PO; +METR-162 PO; +PRED20TA PO
[2017-01-09] MEDS ORDERED: SODIUM CHLORIDE 0.9% 1000ML 1,000 ML IV STA (09:19)
[2017-01-09] MEDS ORDERED: PIPERACILLIN/TAZOBACTAM 3.375 GM/100ML D5W IV STA (09:19)
[2017-01-09 09:51] LABS: BASO % 0.2 %; BASO ABS # 0.03 K/uL (0-0.2); COMPLETE YES; EOS % 0.4 %; IG% 0.4 %; LYMPH % 11.9 %; LYMPH ABS # 1.92 K/uL (1.2-3.4); MEAN CELL VOLUME 93.2 fL (80-100); MEAN CORPUSCULAR HEMOGLOBIN 27.7 pg (25-34); MEAN CORPUSCULAR HGB CONC 29.8 g/dl (32-36); MEAN PLATELET VOLUME 9.5 fL (7.4-10.4); MONO % 9.1 %; PLATELET COUNT 258 K/uL (130-400); WHITE BLOOD COUNT 16.07 K/uL (4.8-10.8)
[2017-01-09] MEDS ORDERED: ALBUTEROL 0.5% NEB SOLN 2.5 MG/0.5 ML VIAL INH STA (09:53)
[2017-01-09] MEDS ORDERED: MoRPHine SULFATE 2 MG/ML CARP IV STA (09:53)
[2017-01-09 10:16] LABS: BUN/CREATININE RATIO 26.4 (10-20); CALCIUM 9.5 mg/dl (8.5-10.1); CREATININE 0.61 mg/dl (0.60-1.20); POTASSIUM 3.9 mmol/L (3.5-5.1)
[2017-01-09 10:18] LABS: ALB/GLOB RATIO 1.3 (0.9-2)
--- NOTE | 2017-01-09 10:30 | DIAGNOSTIC IMAGING REPORT ---
ULTRASOUND RIGHT UPPER EXTREMITY VENOUS CLINICAL HISTORY: Right arm edema. COMPARISON STUDY: No priors. TECHNIQUE: Real-time, grayscale, and color Doppler sonography of the deep veins of the right upper extremity is performed. Compression and augmentation were utilized. FINDINGS: There is no sonographic evidence of deep venous thrombosis identified in the right upper extremity. The right internal jugular, axillary, and brachial veins are patent and normally compressible. Normal venous waveforms and augmentation are seen within the right subclavian vein. The cephalic and basilic veins are clear. The visualized radial and ulnar veins are patent. IMPRESSION: There is no sonographic evidence of deep venous thrombosis identified in the right upper extremity. Electronically signed by: Nolan Rudolph M.D. 01/09/2017 10:28 AM Dictated Date/Time: 01/09/2017 10:28 AM
--- NOTE | 2017-01-09 10:45 | EMERGENCY ROOM VISIT NOTE ---
History First contact with patient: :09 Chief Complaint: SWELLING TO EXTREMITY Stated Complaint: CELLULITIS History of Present Illness The patient is a 81 year old female who presents to the Emergency Room via private vehicle accompanied by family with complaints of "cellulitis". The patient states that she was seen here earlier this morning and diagnosed with cellulitis of her right hand status post a cat scratch potentially. She states that she went home, and the swelling has progressed and is now up to her elbow. The arm feels very warm. She denies any fevers or chills. Her tetanus is up- to-date, and the cat shots are up-to-date. Review of Systems A complete 10-point Review of Systems was discussed with the patient, with pertinent positives and negatives listed in the History of Present Illness. All remaining Review of Systems questions can be considered negative unless otherwise specified. Past Medical/Surgical History Medical Problems: (1) Arthritis (2) Bronchiectasis (3) Cellulitis (4) CKD (chronic kidney disease), stage III (5) COPD, severe (6) GERD (gastroesophageal reflux disease) (7) History of pseudo obstruction of colon (8) HTN (hypertension) (9) Hyperlipidemia (10) Nocturnal hypoxemia (11) Paroxysmal a-fib (12) Pulmonary hypertension (13) Spinal stenosis Surgical Problems: (1) H/O hernia repair (2) H/O: hysterectomy (3) History of cataract surgery (4) History of cholecystectomy (5) S/P lobectomy of lung Family History Diabetes mellitus MOTHER FH: CHF (congestive heart failure) MOTHER Social History Smoking Status: Never Smoker Alcohol Use: none Housing Status: lives with significant other Current/Historical Medications Scheduled Aspirin (Aspirin Ec), 81 MG PO DAILY Baclofen (Lioresal), 10 MG PO AMPM Budesonide (Pulmicort Respules 0.5MG/2ML), 2 ML INH BID Cefdinir (Omnicef), 300 MG PO Q12H Cholecalciferol (Vitamin D3), 2,000 INTER.UNIT PO QAM Diltiazem Hcl Coated Beads (Cardizem Cd), 240 MG PO QAM Docusate Sodium (Colace), 100 MG PO BID Home O2 Therapy (Oxygen), 2 LITERS NA HS Metformin Hcl (Glucophage), 1,000 MG PO BID Metoprolol Succinate (Metoprolol Succinate ER), 50 MG PO QAM Metronidazole (Flagyl), 1 TAB PO TID Omeprazole (Prilosec), 20 MG PO QAM Polyethylene Glycol 3350 (Miralax), 17 GM PO DAILYBL Prednisone (Prednisone), 20 MG PO QAM Senna/Docusate Sod (Senokot S), 1 TAB PO every afternoon Sertraline HCl (Sertraline HCl), 25 MG PO QAM Zafirlukast (Accolate), 20 MG PO BID Scheduled PRN Acetaminophen (Acetaminophen), 2 TAB PO Q6 PRN for Pain or Fever Albuterol Hfa (Ventolin Hfa), 2 PUFFS INH Q4H PRN for SOB/Wheezing Doxycycline Hyclate (Doxycycline Hyclate), 100 MG PO BID PRN for COPD rescue kit Furosemide (Lasix), 10 MG PO DAILY PRN for edema Ipratropium-Albuterol (Duoneb), 1 TREATMENT INH Q4 PRN for SOB/Wheezing Nystatin (Nystatin Suspension), 5 ML PO UD PRN for THRUSH Ondansetron Hcl (Zofran), 4 MG PO Q6 PRN for Nausea Prednisone (Deltasone), 20 MG PO UD PRN for COPD rescue kit Tramadol HCl (Tramadol HCl), 50 MG PO Q6 PRN for back pain Physical Exam Vital Signs Date Time Temp Pulse Resp B/P (MAP) Pulse Ox O2 Delivery O2 Flow Rate FiO2 01/09/17 11:23 71 18 132/65 94 Nasal Cannula 2.0 01/09/17 09:02 36.8 80 17 117/58 88 Room Air Physical Exam VITAL SIGNS - Vital signs and nursing notes were reviewed. Stable. GENERAL -81-year-old female appearing her stated age who is in no acute distress. Communicates well with provider and answers questions appropriately. SKIN - there is erythema and edema of the entire right upper extremity to location of the right elbow. The hand is most edematous, with erythema. HEAD - NC/AT. LUNGS - Chest wall symmetric without accessory muscle use, intercostals retractions, or central cyanosis. Normal vesicular breath sounds CTA B/L. No wheezes, rales, or rhonchi appreciated. CARDIAC - RRR with S1/S2. No murmur, rubs, or gallops appreciated. EXTREMITIES - No clubbing or peripheral cyanosis. No pretibial edema present. She is neurovascularly intact in the right upper extremity. +5/5 strength noted in UE/LE bilaterally. Decreased range of motion of the right hand secondary to edema. Medical Decision & Procedures ER Provider Diagnostic Interpretation: ULTRASOUND RIGHT UPPER EXTREMITY VENOUS CLINICAL HISTORY: Right arm edema. COMPARISON STUDY: No priors. TECHNIQUE: Real-time, grayscale, and color Doppler sonography of the deep veins of the right upper extremity is performed. Compression and augmentation were utilized. FINDINGS: There is no sonographic evidence of deep venous thrombosis identified in the right upper extremity. The right internal jugular, axillary, and brachial veins are patent and normally compressible. Normal venous waveforms and augmentation are seen within the right subclavian vein. The cephalic and basilic veins are clear. The visualized radial and ulnar veins are patent. IMPRESSION: There is no sonographic evidence of deep venous thrombosis identified in the right upper extremity. Electronically signed by: Nolan Rudolph M.D. 01/09/2017 10:28 AM Dictated Date/Time: 01/09/2017 10:28 AM Laboratory Results 01/09/17 09:28 Red Blood Count 4.40, Mean Corpuscular Volume 93.2, Mean Corpuscular Hemoglobin 27.7, Mean Corpuscular Hemoglobin Concent 29.8, Mean Platelet Volume 9.5, Neutrophils (%) (Auto) 78.0, Lymphocytes (%) (Auto) 11.9, Monocytes (%) (Auto) 9.1, Eosinophils (%) (Auto) 0.4, Basophils (%) (Auto) 0.2, Neutrophils # (Auto) 12.54, Lymphocytes # (Auto) 1.92, Monocytes # (Auto) 1.46, Eosinophils # (Auto) 0.06, Basophils # (Auto) 0.03 01/09/17 09:28 Test 01/09/17 09:28 White Blood Count 16.07 K/uL (4.8-10.8) Red Blood Count 4.40 M/uL (4.2-5.4) Hemoglobin 12.2 g/dL (12.0-16.0) Hematocrit 41.0 % (37-47) Mean Corpuscular Volume 93.2 fL (80-100) Mean Corpuscular Hemoglobin 27.7 pg (25-34) Mean Corpuscular Hemoglobin Concent 29.8 g/dl (32-36) Platelet Count 258 K/uL (130-400) Mean Platelet Volume 9.5 fL (7.4-10.4) Neutrophils (%) (Auto) 78.0 % Lymphocytes (%) (Auto) 11.9 % Monocytes (%) (Auto) 9.1 % Eosinophils (%) (Auto) 0.4 % Basophils (%) (Auto) 0.2 % Neutrophils # (Auto) 12.54 K/uL (1.4-6.5) Lymphocytes # (Auto) 1.92 K/uL (1.2-3.4) Monocytes # (Auto) 1.46 K/uL (0.11-0.59) Eosinophils # (Auto) 0.06 K/uL (0-0.5) Basophils # (Auto) 0.03 K/uL (0-0.2) RDW Standard Deviation 50.7 fL (36.4-46.3) RDW Coefficient of Variation 15.0 % (11.5-14.5) Immature Granulocyte % (Auto) 0.4 % Immature Granulocyte # (Auto) 0.06 K/uL (0.00-0.02) Anion Gap 8.0 mmol/L (3-11) Est Creatinine Clear Calc Drug Dose 64.6 ml/min Estimated GFR () 99.9 Estimated GFR (Non- 86.2 BUN/Creatinine Ratio 26.4 (10-20) Calcium Level 9.5 mg/dl (8.5-10.1) Total Bilirubin 0.6 mg/dl (0.2-1) Aspartate Amino Transf (AST/SGOT) 31 U/L (15-37) Alanine Aminotransferase (ALT/SGPT) 36 U/L (12-78) Alkaline Phosphatase 58 U/L (45-117) Total Protein 5.7 gm/dl (6.4-8.2) Albumin 3.2 gm/dl (3.4-5.0) Globulin 2.5 gm/dl (2.5-4.0) Albumin/Globulin Ratio 1.3 (0.9-2) Medications Administered Medications (Trade) Dose Ordered Sig/Toro Route Start Time Stop Time Status Last Admin Dose Admin Sodium Chloride 1,000 ml @ 200 mls/hr Q5H STAT IV 01/09/17 09:19 01/09/17 12:06 DC 01/09/17 09:40 200 MLS/HR Piperacillin Sod/ Tazobactam Sod (Zosyn Iv) 3.375 gm NOW STAT IV 01/09/17 09:19 01/09/17 09:21 DC 01/09/17 09:40 3.375 GM Albuterol Sulfate (Ventolin 0.5% 2.5MG/0.5ML Neb) 2.5 mg NOW STAT INH 01/09/17 09:53 01/09/17 09:55 DC 01/09/17 10:00 2.5 MG Morphine Sulfate (MoRPHine SULFATE INJ) 2 mg NOW STAT IV 01/09/17 09:53 01/09/17 09:55 DC 01/09/17 10:00 2 MG Medical Decision Patient was seen and evaluated as above. Previous visit was extensively reviewed. She was here for cellulitis, and now has worsening symptoms. The cellulitis/redness is now greater than 50% of her right upper extremity. I believe she should be admitted for further evaluation and management. CBC reveals a leukocytosis of 16.7. Metabolic panel reveals no evidence of kidney or liver failure. She was given Zosyn here, as she was noted to tolerate this in the past. Case was discussed with the attending physician, as well as the admission team. Please refer to further documentation regarding her stay. Blood cultures pending. Patient indicated she was due for her albuterol nebulizer, therefore this was ordered for her. In evaluation treatment this patient following differential diagnoses were entertained: Cat scratch cellulitis, sepsis, among others. Impression Primary Impression: Swelling of right extremity Additional Impression: Cellulitis Departure Information Dispostion Admitted as an inpatient Condition FAIR Referrals Mamadou Torre M.D.(MARCO A) (PCP) Forms WORK / SCHOOL INSTRUCTIONS, HOME CARE DOCUMENTATION FORM, IMPORTANT VISIT INFORMATION Patient Instructions [facility] Problem Qualifiers
[2017-01-09 11:29] VITALS: O2SAT 94; Ht 162.6 cm; Wt 65.0 kg
[2017-01-09] MEDS ORDERED: ALBUT/IPRATROP 3MG/0.5MG NEB 3 ML VIAL INH PRN (11:30)
[2017-01-09] MEDS ORDERED: DEXTROSE 50% 50 ML SYR IV PRN (11:30)
[2017-01-09] MEDS ORDERED: ALBUTEROL HFA 8 GM INHALER INH PRN (11:30)
[2017-01-09] MEDS ORDERED: GLUCOSE 10 TABS/TUBE PO PRN (11:30)
[2017-01-09] MEDS ORDERED: GLUCOSE 40% GEL 15 GM TUBE PO PRN (11:30)
[2017-01-09] MEDS ORDERED: GLUCAGON FOR INJ 1 MG VIAL SQ PRN (11:30)
[2017-01-09] MEDS ORDERED: VNTHFA/IN INH (11:35)
[2017-01-09] MEDS ORDERED: ACET500T57 PO (11:35)
--- NOTE | 2017-01-09 11:46 | EMERGENCY ROOM VISIT NOTE ---
ED Visit Note First contact with patient: 09:09 81-year-old female with swelling of her right hand cat bite was fully evaluated by Hipolito Manuel PA-C. Please see his note. I also independently evaluated the patient. The patient was seen here recently but returned due to the increased swelling. She was started on IV antibiotics and will require admission.
[2017-01-09] MEDS ORDERED: PIPERACILL/TAZOBAC CONSULT ACTIVE PRN (12:11)
[2017-01-09 12:19] VITALS: BP 113/57; PULSE 73; TEMP 36.9; O2SAT 90
--- NOTE | 2017-01-09 13:21 | History and Physical ---
History & Physical Date & Time of Service: Jan 09, 2017 at 11:50 Chief Complaint: Cellulitis Primary Care Physician: Mamadou Torre M.D.(MARCO A) History of Present Illness Source: patient, family (daughter and sister at bedside), clinic records, hospital records This is a 81 y/o female with DM type 2, asthma, COPD on chronic steroids and chronic nocturnal O2, hx bronchiectasis, paroxysmal atrial fibrillation not on Coumadin, HTN, CKD stage III, and other problems listed below who presents to the ED with right hand infection. Patient developed erythema and swelling of the dorsum of the right hand yesterday. Her daughter noticed a punctate lesion seeping clear fluid between the 3rd and 4th MCP joints. The patient has a kitten , so there was suspicion for a cat scratch, but patient does not specifically recall being scratched or bitten. The cat's vaccines are up to date per ER provider. Pt was seen in ER overnight, WBC elevated to 15.5K, and was diagnosed with cellulitis. X-ray showed degenerative change and soft tissue swelling. She was treated with IV Rocephin and sent home with Omnicef and Flagyl which she did not take yet. This morning patient felt nauseous which resolved and had increased pain and spreading of erythema and swelling to midway up her forearm. She reports difficulty with ROM of right wrist and fingers. Daughter states pt felt warm to the touch this morning and her temp was 99.5 F at home. Pain is controlled after IV morphine given in ER. Has chronic MCKAY unchanged from baseline. Received a neb in ER after O2 sat was 88% on RA. Now breathing well, saturating high 90's on 2L NC. Denies chills, chest pain, palpitations, dizziness, cough, dyspnea at rest, vomiting, diarrhea, dysuria, frequency. Pt finished a course of Keflex 1 week ago for skin tears on her left arm and right leg which are healed. No recent hospitalization. Currently on Zio monitor ordered by retail advertising executive Dr. Chun. Past Medical/Surgical History Medical Problems: (1) Arthritis Status: Chronic (2) Bronchiectasis Status: Chronic (3) CKD (chronic kidney disease), stage III Status: Chronic (4) COPD, severe Status: Chronic (5) GERD (gastroesophageal reflux disease) Status: Chronic (6) History of pseudo obstruction of colon Status: Chronic (7) HTN (hypertension) Status: Chronic (8) Hyperlipidemia Permanent Comment: statin intolerance Status: Chronic (9) Nocturnal hypoxemia Status: Chronic (10) Paroxysmal a-fib Status: Chronic (11) Pulmonary hypertension Status: Chronic (12) Spinal stenosis Status: Chronic Surgical Problems: (1) H/O hernia repair Status: Chronic (2) H/O: hysterectomy Status: Chronic (3) History of cataract surgery Status: Chronic (4) History of cholecystectomy Status: Chronic (5) 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 ambulates with walker. no recent fall. ) Immunizations History of Influenza Vaccine: Yes Influenza Vaccine Date: Jan 17, 2016 History of Tetanus Vaccine?: Yes (TDAP) Tetanus Immunization Date: Nov 06, 2010 History of Pneumococcal: Yes Pneumococcal Date: Sep 23, 2014 Multi-Drug Resistant Organisms History of MDRO: No Allergies Coded Allergies: Ciprofloxacin (Verified Allergy, Intermediate, hives, itching, 01/09/17) Amoxicillin (Verified Allergy, Mild, itching,TOLERATING ZOSYN 01/04/14, ) Clavulanic Acid (Verified Allergy, Mild, ITCHING,TOLERATING ZOSYN 01/04/14 , 01/09/17) Alendronate (Verified Adverse Reaction, Unknown, feet and hand pain, ) Levofloxacin (Verified Adverse Reaction, Unknown, muscle pain, 01/09/17) Home Medications Scheduled Aspirin (Aspirin Ec), 81 MG PO DAILY Baclofen (Lioresal), 10 MG PO AMPM Budesonide (Pulmicort Respules 0.5MG/2ML), 2 ML INH BID Cefdinir (Omnicef), 300 MG PO Q12H Cholecalciferol (Vitamin D3), 2,000 INTER.UNIT PO QAM Diltiazem Hcl Coated Beads (Cardizem Cd), 240 MG PO QAM Docusate Sodium (Colace), 100 MG PO BID Home O2 Therapy (Oxygen), 2 LITERS NA HS Metformin Hcl (Glucophage), 1,000 MG PO BID Metoprolol Succinate (Metoprolol Succinate ER), 50 MG PO QAM Metronidazole (Flagyl), 1 TAB PO TID Omeprazole (Prilosec), 20 MG PO QAM Polyethylene Glycol 3350 (Miralax), 17 GM PO DAILYBL Prednisone (Prednisone), 20 MG PO QAM Senna/Docusate Sod (Senokot S), 1 TAB PO every afternoon Sertraline HCl (Sertraline HCl), 25 MG PO QAM Zafirlukast (Accolate), 20 MG PO BID Scheduled PRN Acetaminophen (Acetaminophen), 2 TAB PO Q6 PRN for Pain or Fever Albuterol Hfa (Ventolin Hfa), 2 PUFFS INH Q4H PRN for SOB/Wheezing Doxycycline Hyclate (Doxycycline Hyclate), 100 MG PO BID PRN for COPD rescue kit Furosemide (Lasix), 10 MG PO DAILY PRN for edema Ipratropium-Albuterol (Duoneb), 1 TREATMENT INH Q4 PRN for SOB/Wheezing Nystatin (Nystatin Suspension), 5 ML PO UD PRN for THRUSH Ondansetron Hcl (Zofran), 4 MG PO Q6 PRN for Nausea Prednisone (Deltasone), 20 MG PO UD PRN for COPD rescue kit Tramadol HCl (Tramadol HCl), 50 MG PO Q6 PRN for back pain Review of Systems Ten systems reviewed and negative. Physical Exam Vital Signs Date Time Temp Pulse Resp B/P (MAP) Pulse Ox O2 Delivery O2 Flow Rate FiO2 01/09/17 11:23 71 18 132/65 94 Nasal Cannula 2.0 01/09/17 09:02 36.8 80 17 117/58 88 Room Air General Appearance: WD/WN, no apparent distress, + pertinent finding (alert elderly female, sister and daughter at bedside) Head: normocephalic, atraumatic Eyes: normal inspection ENT: hearing grossly normal, pharynx normal Neck: supple, trachea midline Respiratory/Chest: normal breath sounds, no respiratory distress, no accessory muscle use, + pertinent finding (slight expiratory wheezing. saturating well on 2 liters NC. Zio monitor in place on chest. ) Cardiovascular: regular rate, rhythm, no murmur Abdomen/GI: normal bowel sounds, non tender, soft Extremities/Musculoskelatal: no calf tenderness, no pedal edema, + pertinent finding (right 3rd, 4th, and 5th MCP, 3rd and 4th PIP joints tender. wrist is nontender. limited ROM of right wrist and fingers. right elbow ROM WNL. ) Neurologic/Psych: alert, normal mood/affect, oriented x 3 Skin: + pertinent finding (erythema, warmth, swelling dorsum of right hand with extension detention up the anterior forearm. tiny punctate lesion between 3rd and 4th MCP joints. has scabbed prior skin tears on left arm and right leg.) Lymphatic: + pertinent finding (no right axillary lymphadenopathy. no cervical lymphadenopathy. ) Diagnostics Laboratory Results Results Past 24 Hours Test 01/09/17 09:28 Range/Units White Blood Count 16.07 4.8-10.8 K/uL Red Blood Count 4.40 4.2-5.4 M/uL Hemoglobin 12.2 12.0-16.0 g/dL Hematocrit 41.0 37-47 % Mean Corpuscular Volume 93.2 80-100 fL Mean Corpuscular Hemoglobin 27.7 25-34 pg Mean Corpuscular Hemoglobin Concent 29.8 32-36 g/dl Platelet Count 258 130-400 K/uL Mean Platelet Volume 9.5 7.4-10.4 fL Neutrophils (%) (Auto) 78.0 % Lymphocytes (%) (Auto) 11.9 % Monocytes (%) (Auto) 9.1 % Eosinophils (%) (Auto) 0.4 % Basophils (%) (Auto) 0.2 % Neutrophils # (Auto) 12.54 1.4-6.5 K/uL Lymphocytes # (Auto) 1.92 1.2-3.4 K/uL Monocytes # (Auto) 1.46 0.11-0.59 K/uL Eosinophils # (Auto) 0.06 0-0.5 K/uL Basophils # (Auto) 0.03 0-0.2 K/uL RDW Standard Deviation 50.7 36.4-46.3 fL RDW Coefficient of Variation 15.0 11.5-14.5 % Immature Granulocyte % (Auto) 0.4 % Immature Granulocyte # (Auto) 0.06 0.00-0.02 K/uL Sodium Level 140 136-145 mmol/L Potassium Level 3.9 3.5-5.1 mmol/L Chloride Level 102 98-107 mmol/L Carbon Dioxide Level 30 21-32 mmol/L Anion Gap 8.0 3-11 mmol/L Blood Urea Nitrogen 16 7-18 mg/dl Creatinine 0.61 0.60-1.20 mg/dl Est Creatinine Clear Calc Drug Dose 64.6 ml/min Estimated GFR () 99.9 Estimated GFR (Non- 86.2 BUN/Creatinine Ratio 26.4 10-20 Random Glucose 97 70-99 mg/dl Calcium Level 9.5 8.5-10.1 mg/dl Total Bilirubin 0.6 0.2-1 mg/dl Aspartate Amino Transf (AST/SGOT) 31 15-37 U/L Alanine Aminotransferase (ALT/SGPT) 36 12-78 U/L Alkaline Phosphatase 58 45-117 U/L Total Protein 5.7 6.4-8.2 gm/dl Albumin 3.2 3.4-5.0 gm/dl Globulin 2.5 2.5-4.0 gm/dl Albumin/Globulin Ratio 1.3 0.9-2 Microbiology Results 01/09/17 Blood Culture, Received Pending 01/09/17 Blood Culture, Received Pending Diagnostic Radiology ULTRASOUND RIGHT UPPER EXTREMITY VENOUS CLINICAL HISTORY: Right arm edema. COMPARISON STUDY: No priors. TECHNIQUE: Real-time, grayscale, and color Doppler sonography of the deep veins of the right upper extremity is performed. Compression and augmentation were utilized. FINDINGS: There is no sonographic evidence of deep venous thrombosis identified in the right upper extremity. The right internal jugular, axillary, and brachial veins are patent and normally compressible. Normal venous waveforms and augmentation are seen within the right subclavian vein. The cephalic and basilic veins are clear. The visualized radial and ulnar veins are patent. IMPRESSION: There is no sonographic evidence of deep venous thrombosis identified in the right upper extremity. Impression Assessment and Plan RIGHT HAND CELLULITIS In setting of ?cat scratch vs. bite in setting of diabetes and chronic steroids Treated with IV Rocephin overnight in ER, sent home on Omnicef and Flagyl (did not take yet), returned for worsening cellulitis Has leukocytosis (WBC 16K), but no sepsis (afebrile, no tachycardia, no tachypnea) Given IV Zosyn in ER Blood cultures obtained in ER, check wound culture Continue IV Zosyn Tetanus status addressed by ER, last TDAP in 2010, per ER attending, given nature of injury and clean wound, no tetanus booster indicated Continue home tramadol PRN for pain control Consult ortho for question of joint space infection, discussed with Vlad Fuller PA-C Check MRI hand as recommended by ortho SEVERE COPD Requiring nocturnal O2 and chronic steroids Not in exacerbation Continue prednisone 20 mg daily, home inhalers, nebs, Accolate Supplemental O2 per protocol PAROXYSMAL ATRIAL FIBRILLATION Rate is controlled Continue Cardizem and metoprolol Not on anticoagulation- discontinued by PCP several months ago Currently on Zio monitor ordered by Dr. Chun, need to remove to obtain MRI DM TYPE 2 Hold metformin Novolog sliding scale HYPERTENSION BP is stable Continue home meds CKD STAGE III Creatinine is stable Monitor renal function PA DRUG MONITORING Database queried, no issues identified DVT PROPHYLAXIS SCD's, heparin SQ- would need to hold if any procedure is anticipated CODE STATUS Full code per my discussion with the patient DISPOSITION Admission med/ surg Lives alone, has home health, daughter involved with her care, social worker aide consulted for DC planning Patient seen in collaboration with Dr. Krishna. Please see her addendum. ADDENDUM: Pt received tetanus in [address] Lobato in ER, this should be sufficient. VICENTA PAGE was notified of bite--follow-up through ER staff for this. She is not experiencing systemic symptoms and is not septic. She has significant risk for infection being a diabetic on chronic high dose prednisone , as well as being bitten by a cat. Although she has an Amox allergy, she has had zosyn in the past without issue and is currently tolerating the Zosyn without issue. Ortho hand has been notified and requests MRI which is pending. Zio patch will be temporarily removed for this then replaced. DO Tomi Level of Care Med/Surg Resuscitation Status FULL RESUSCITATION VTE Prophylaxis VTE Risk Assessment Done? Y/N: Yes Risk Level: Moderate Given or contraindicated: Unfractionated heparin SQ, SCD's
[2017-01-09] MEDS ORDERED: LORAZEPAM 2 MG/ML 1 ML VIAL IV SCH (13:30)
[2017-01-09 14:57] LABS: INR 0.9 (0.9-1.1)
[2017-01-09 15:13] VITALS: BP 133/63; PULSE 70; TEMP 37; O2SAT 91
--- NOTE | 2017-01-09 15:17 | Orthopedic Consultation ---
Orthopedic Consultation Date of Consultation: Jan 09, 2017. Attending Physician: Oscar Braun M.D. Reason for Consultation: Right hand swelling/pain History of Present Illness Patient seen at bedside, reports cat scratch to the right hand "a few days ago" . Yesterday she experienced increased pain and swelling to her right hand which prompted her to come into the ER to be evaluated. Has at baseline B/L upper extremity neuropathy but unchanged. Currently denies fevers, chills nausea and vomiting. Past Medical/Surgical History Medical Problems: (1) Bronchitis Status: Acute (2) Cat bite of right hand Status: Acute (3) Cellulitis of heel, right Status: Acute (4) Colitis Status: Acute (5) COPD (chronic obstructive pulmonary disease) Status: Acute (6) Failure of outpatient treatment Status: Acute (7) Head injury Status: Acute (8) Hypoxia Status: Acute (9) Knee contusion Status: Acute (10) Leukocytosis Status: Acute (11) Low back pain Status: Acute (12) Lower abdominal pain Status: Acute (13) Pneumonia Status: Acute (14) Respiratory failure Status: Acute (15) Right leg swelling Status: Acute (16) Right shoulder injury Status: Acute (17) Subtherapeutic anticoagulation Status: Acute (18) Swelling of right extremity Status: Acute Family History Diabetes mellitus MOTHER FH: CHF (congestive heart failure) MOTHER DM Maternal CHF Maternal Social History Smoking Status: Never Smoker Alcohol Use: none Marital Status: ( of cancer around 2016) Housing Status: lives with significant other Allergies Coded Allergies: Ciprofloxacin (Verified Allergy, Intermediate, hives, itching, 01/09/17) Amoxicillin (Verified Allergy, Mild, itching,TOLERATING ZOSYN 01/04/14, ) Clavulanic Acid (Verified Allergy, Mild, ITCHING,TOLERATING ZOSYN 01/04/14 , 01/09/17) Alendronate (Verified Adverse Reaction, Unknown, feet and hand pain, ) Levofloxacin (Verified Adverse Reaction, Unknown, muscle pain, 01/09/17) Home Medications Scheduled Aspirin (Aspirin Ec), 81 MG PO DAILY Baclofen (Lioresal), 10 MG PO AMPM Budesonide (Pulmicort Respules 0.5MG/2ML), 2 ML INH BID Cefdinir (Omnicef), 300 MG PO Q12H Cholecalciferol (Vitamin D3), 2,000 INTER.UNIT PO QAM Diltiazem Hcl Coated Beads (Cardizem Cd), 240 MG PO QAM Docusate Sodium (Colace), 100 MG PO BID Home O2 Therapy (Oxygen), 2 LITERS NA HS Metformin Hcl (Glucophage), 1,000 MG PO BID Metoprolol Succinate (Metoprolol Succinate ER), 50 MG PO QAM Metronidazole (Flagyl), 1 TAB PO TID Omeprazole (Prilosec), 20 MG PO QAM Polyethylene Glycol 3350 (Miralax), 17 GM PO DAILYBL Prednisone (Prednisone), 20 MG PO QAM Senna/Docusate Sod (Senokot S), 1 TAB PO every afternoon Sertraline HCl (Sertraline HCl), 25 MG PO QAM Zafirlukast (Accolate), 20 MG PO BID Scheduled PRN Acetaminophen (Acetaminophen), 2 TAB PO Q6 PRN for Pain or Fever Albuterol Hfa (Ventolin Hfa), 2 PUFFS INH Q4H PRN for SOB/Wheezing Doxycycline Hyclate (Doxycycline Hyclate), 100 MG PO BID PRN for COPD rescue kit Furosemide (Lasix), 10 MG PO DAILY PRN for edema Ipratropium-Albuterol (Duoneb), 1 TREATMENT INH Q4 PRN for SOB/Wheezing Nystatin (Nystatin Suspension), 5 ML PO UD PRN for THRUSH Ondansetron Hcl (Zofran), 4 MG PO Q6 PRN for Nausea Prednisone (Deltasone), 20 MG PO UD PRN for COPD rescue kit Tramadol HCl (Tramadol HCl), 50 MG PO Q6 PRN for back pain Current Inpatient Medications Current Inpatient Medications Medications (Trade) Dose Ordered Sig/Toro Route Start Time Stop Time Status Last Admin Dose Admin Acetaminophen (Tylenol Tab) 650 mg Q4H PRN PO 01/09/17 11:30 02/08/17 11:29 Ondansetron HCl (Zofran Inj) 4 mg Q6H PRN IV 01/09/17 11:30 02/08/17 11:29 Insulin Aspart (novoLOG ASPART) SLIDING SCALE If C... ACHS SC 01/09/17 16:00 02/08/17 15:59 Glucose (Glucose 40% Gel) 15-30 GRAMS 15 GRAMS... UD PRN PO 01/09/17 11:30 02/08/17 11:29 Glucose (Glucose Chew Tab) 4-8 Tablets 4 Tabl... UD PRN PO 01/09/17 11:30 02/08/17 11:29 Dextrose (Dextrose 50% 50ML Syringe) 25-50ML OF 50% DW IV FOR... UD PRN IV 01/09/17 11:30 02/08/17 11:29 Glucagon (Glucagon Inj) 1 mg UD PRN SQ 01/09/17 11:30 02/08/17 11:29 Albuterol (Ventolin Hfa Inhaler) 2 puffs Q4H PRN INH 01/09/17 11:30 02/08/17 11:29 Aspirin (Ecotrin Tab) 81 mg DAILY PO 01/10/17 08:00 02/09/17 08:59 Baclofen (Lioresal Tab) 10 mg BID PO 01/09/17 20:00 02/08/17 20:59 Budesonide (Pulmicort Respules 0.5MG/ 2ML Neb Soln) 1 mg BIDR INH 01/09/17 20:00 02/08/17 19:59 Diltiazem HCl (Cardizem Cd Cap) 240 mg QAM PO 01/10/17 08:00 02/09/17 08:59 Docusate Sodium (coLACE CAP) 100 mg BID PO 01/09/17 20:00 02/08/17 20:59 Albuterol/ Ipratropium (Duoneb) 3 ml Q4 PRN INH 01/09/17 11:30 02/08/17 11:29 Metoprolol Succinate (Toprol Xl Tab) 50 mg QAM PO 01/10/17 08:00 02/09/17 08:59 Prednisone (PredniSONE TAB) 20 mg QAM PO 01/10/17 08:00 02/09/17 08:59 Senna/Docusate Sodium (Senokot S Tab) 1 tab DAILY PO 01/10/17 08:00 02/09/17 08:59 Tramadol HCl (Ultram Tab) 50 mg Q6 PRN PO 01/09/17 11:30 02/08/17 11:29 Cholecalciferol (Vitamin D Tab) 2,000 inter.unit QAM PO 01/10/17 08:00 02/09/17 08:59 Pantoprazole Sodium (Protonix Tab) 40 mg QAM PO 01/10/17 08:00 02/09/17 07:59 Polyethylene (Miralax Powder Packet) 17 gm DAILYBL PO 01/10/17 11:00 02/09/17 10:59 Sertraline HCl (Zoloft Tab) 25 mg QAM PO 01/10/17 08:00 02/09/17 08:59 Miscellaneous Information (Order Awaiting Action) 1 ea QS N/A 01/09/17 16:00 02/08/17 15:59 Piperacillin Sod/ Tazobactam Sod (Consult) 1 ea UD PRN N/A 01/09/17 12:11 02/08/17 12:10 Piperacillin Sod/ Tazobactam Sod 3.375 gm/Dextrose 115 ml @ 28.75 mls/ hr Q8H IV 01/09/17 16:00 01/19/17 15:59 Lorazepam (Ativan Inj) 0.5 mg TODAY@1330 IV 01/09/17 13:30 01/09/17 23:59 Heparin Sodium (Porcine) (Heparin Sq 5000 Unit/0.5ml) 5,000 unit Q8 SQ 01/09/17 14:00 02/08/17 13:59 UNV Review of Systems At least 9 systems reviewed and negative except for those mentioned in the HPI. Musculoskeletal: + swelling Integumentary: + rash Physical Exam Date Time Temp Pulse Resp B/P (MAP) Pulse Ox O2 Delivery O2 Flow Rate FiO2 01/09/17 12:19 36.9 73 18 113/57 (75) 90 Room Air 01/09/17 11:29 94 Nasal Cannula 2.0 01/09/17 11:23 71 18 132/65 94 Nasal Cannula 2.0 01/09/17 09:02 36.8 80 17 117/58 88 Room Air NAD, AOx3 B/L UE LUE NVSI +M/R/U/AIN/PIN SILT grossly however blunted at baseline, +2 radial pulse, compartments soft NT RUE NVSI +M/R/U/AIN/PIN SILT grossly, however blunted at baseline, +2 radial pulse, compartments soft, +erythema/edema dorsal forearm/wrist/hand, Edema and errythema extends into the digits, no fusiform swelling, no pain with passive extension, +mild tenderness to palpation overlying dorsal hand and digits, no increased pain with flexion/extension of the wrist. No appreciable fluctuance or induration. 4 mm scratch located between dorsal 3rd and 4th digits, proximal to the MCP joints. No drainage. Laboratory Results Last 24 Hours Test 01/09/17 09:28 01/09/17 14:06 White Blood Count 16.07 K/uL Red Blood Count 4.40 M/uL Hemoglobin 12.2 g/dL Hematocrit 41.0 % Mean Corpuscular Volume 93.2 fL Mean Corpuscular Hemoglobin 27.7 pg Mean Corpuscular Hemoglobin Concent 29.8 g/dl Platelet Count 258 K/uL Mean Platelet Volume 9.5 fL Neutrophils (%) (Auto) 78.0 % Lymphocytes (%) (Auto) 11.9 % Monocytes (%) (Auto) 9.1 % Eosinophils (%) (Auto) 0.4 % Basophils (%) (Auto) 0.2 % Neutrophils # (Auto) 12.54 K/uL Lymphocytes # (Auto) 1.92 K/uL Monocytes # (Auto) 1.46 K/uL Eosinophils # (Auto) 0.06 K/uL Basophils # (Auto) 0.03 K/uL RDW Standard Deviation 50.7 fL RDW Coefficient of Variation 15.0 % Immature Granulocyte % (Auto) 0.4 % Immature Granulocyte # (Auto) 0.06 K/uL Sodium Level 140 mmol/L Potassium Level 3.9 mmol/L Chloride Level 102 mmol/L Carbon Dioxide Level 30 mmol/L Anion Gap 8.0 mmol/L Blood Urea Nitrogen 16 mg/dl Creatinine 0.61 mg/dl Est Creatinine Clear Calc Drug Dose 64.6 ml/min Estimated GFR () 99.9 Estimated GFR (Non- 86.2 BUN/Creatinine Ratio 26.4 Random Glucose 97 mg/dl Calcium Level 9.5 mg/dl Total Bilirubin 0.6 mg/dl Aspartate Amino Transf (AST/SGOT) 31 U/L Alanine Aminotransferase (ALT/SGPT) 36 U/L Alkaline Phosphatase 58 U/L Total Protein 5.7 gm/dl Albumin 3.2 gm/dl Globulin 2.5 gm/dl Albumin/Globulin Ratio 1.3 Prothrombin Time 10.0 SECONDS Prothromb Time International Ratio 0.9 Activated Partial Thromboplast Time 26.7 SECONDS Partial Thromboplastin Ratio 1.0 Assessment & Plan 81 yo female with cellulitis of the right hand and forearm. -IV abx - Rocephin -NWB RUE -Strict elevation -Ice -Due to the nature of the injury, MRI appropriate to rule out any deep infection /abscess. Will follow up results.
[2017-01-09] MEDS ORDERED: INSULIN HUMAN REGULAR SC SCH (16:00)
[2017-01-09] MEDS: PIPERACILL/TAZOBAC IV 3.375 GM in DEXTROSE 5% 100ML IV SCH ×2 (17:52→23:37)
[2017-01-09] MEDS: INSULIN ASPART 100 UNITS/ML 3 ML PEN SC SCH ×2 (18:26→20:46)
[2017-01-09] MEDS: TRAMADOL HCL 50 MG TAB PO PRN (18:28)
[2017-01-09] MEDS: BUDESONIDE 0.5 MG/2 ML VIAL (PULMICORT) INH SCH (19:10)
[2017-01-09 19:31] VITALS: PULSE 68; O2SAT 94
[2017-01-09] MEDS: DOCUSATE SODIUM 100 MG CAP PO SCH (19:35)
[2017-01-09] MEDS: BACLOFEN 10 MG TAB PO SCH (19:36)
[2017-01-09] MEDS ORDERED: GADAVIST IV PRN (22:00)
--- NOTE | 2017-01-09 22:07 | DIAGNOSTIC IMAGING REPORT ---
MRI THE RIGHT HAND WITHOUT A WITH GADOLINIUM CLINICAL HISTORY: Cellulitis. Right hand swelling. Possible abscess. COMPARISON STUDY: Conventional radiographic study of the head dated 01/09/2017 FINDINGS: Imaging was performed in the axial, sagittal, and coronal planes, before and after administration of 6.5 cc of intravenous Gadavist. There are no areas of marrow edema to indicate occult fracture, or osteomyelitis. There is soft tissue edema most pronounced dorsally. There are no fluid collections to indicate an abscess. There are no pathologically enhancing masses. There are degenerative changes most pronounced the level of the distal interphalangeal joints. IMPRESSION: 1. No evidence of osteomyelitis 2. Soft tissue edema consistent with a cellulitis 3. No evidence of abscess. No MRI evidence of a septic arthritis. Electronically signed by: Albaro Alonso M.D. 01/09/2017 10:06 PM Dictated Date/Time: 01/09/2017 10:01 PM
[2017-01-09] MEDS: HEPARIN SOD 5000 UNIT/0.5 ML CARP SQ SCH (22:33)
[2017-01-10] VITALS (7 sets, daily range): BP systolic 124–134; BP diastolic 59–69; PULSE 61–73; TEMP 36.8–37; O2SAT 91–94
[2017-01-10] MEDS: TRAMADOL HCL 50 MG TAB PO PRN ×3 (03:30→23:47)
[2017-01-10] MEDS: HEPARIN SOD 5000 UNIT/0.5 ML CARP SQ SCH ×3 (05:41→21:19)
[2017-01-10 06:24] LABS: BASO % 0.5 %; BASO ABS # 0.04 K/uL (0-0.2); COMPLETE YES; EOS % 0.2 %; IG% 0.6 %; LYMPH % 15.6 %; LYMPH ABS # 1.38 K/uL (1.2-3.4); MEAN CORPUSCULAR HEMOGLOBIN 27.9 pg (25-34); MEAN PLATELET VOLUME 9.7 fL (7.4-10.4); MONO % 12.1 %; PLATELET COUNT 248 K/uL (130-400); RED BLOOD COUNT 3.98 M/uL (4.2-5.4); WHITE BLOOD COUNT 8.82 K/uL (4.8-10.8)
[2017-01-10 06:45] LABS: BUN/CREATININE RATIO 17.7 (10-20); C-REACTIVE PROTEIN 17.2 mg/dl (0-0.29); CALCIUM 8.6 mg/dl (8.5-10.1); CREATININE 0.62 mg/dl (0.60-1.20); POTASSIUM 3.8 mmol/L (3.5-5.1)
[2017-01-10] MEDS: BUDESONIDE 0.5 MG/2 ML VIAL (PULMICORT) INH SCH ×2 (07:22→20:06)
[2017-01-10] MEDS: ACETAMINOPHEN 325 MG TAB PO PRN ×2 (07:40→16:13)
[2017-01-10] MEDS ORDERED: PANTOprazole SOD 40 MG TAB PO SCH (08:00)
[2017-01-10] MEDS: PIPERACILL/TAZOBAC IV 3.375 GM in DEXTROSE 5% 100ML IV SCH ×3 (08:10→23:35)
[2017-01-10 08:34] LABS: ESTIMATED AVERAGE GLUCOSE 131 mg/dl; HA1C FLAG Normal (Normal)
[2017-01-10] MEDS: DILTIAZEM HCL 240 MG CAPCR PO SCH (09:27)
[2017-01-10] MEDS: ASPIRIN 81 MG ECTAB PO SCH (09:28)
[2017-01-10] MEDS: BACLOFEN 10 MG TAB PO SCH ×2 (09:29→21:17)
[2017-01-10] MEDS: DOCUSATE SODIUM/SENNA 50/8.6MG TAB PO SCH (09:31)
[2017-01-10] MEDS: METOPROLOL SUCC 50MG EXT REL TAB PO SCH (09:32)
[2017-01-10] MEDS: CHOLECALCIFEROL 1000 INTER.UNIT TAB PO SCH (09:33)
[2017-01-10] MEDS: SERTRALINE HCL 50 MG TAB PO SCH (09:34)
[2017-01-10] MEDS: DOCUSATE SODIUM 100 MG CAP PO SCH ×2 (09:39→21:17)
[2017-01-10] MEDS: INSULIN ASPART 100 UNITS/ML 3 ML PEN SC SCH ×4 (09:45→21:00)
--- NOTE | 2017-01-10 11:31 | Medical Consult ---
Consultation Date of Consultation: Jan 10, 2017. Attending Physician: Oscar Braun M.D. Reason for Consultation: unclear source of hand wound, cellulitis History of Present Illness 81-year-old female with multiple medical comorbidities including type 2 diabetes mellitus, chronic kidney disease, atrial fibrillation on Coumadin, and COPD, who was in usual state of health until 1 day prior to admission when she noted acute onset of swelling and erythema of her right hand, associated with pain rated 7/10 in intensity, no significant fever or chills. She came to the emergency department where she was found to have evidence of cellulitis click and was started on IV Zosyn. She has had MRI of the hand which shows evidence of cellulitis but no deeper infection. She still has significant pain today, remains afebrile. Tolerating Zosyn without apparent difficulty. Blood cultures are pending. Past Medical/Surgical History Medical Problems: (1) Bronchitis Status: Acute (2) Cat bite of right hand Status: Acute (3) Cellulitis of heel, right Status: Acute (4) Colitis Status: Acute (5) COPD (chronic obstructive pulmonary disease) Status: Acute (6) Failure of outpatient treatment Status: Acute (7) Head injury Status: Acute (8) Hypoxia Status: Acute (9) Knee contusion Status: Acute (10) Leukocytosis Status: Acute (11) Low back pain Status: Acute (12) Lower abdominal pain Status: Acute (13) Pneumonia Status: Acute (14) Respiratory failure Status: Acute (15) Right leg swelling Status: Acute (16) Right shoulder injury Status: Acute (17) Subtherapeutic anticoagulation Status: Acute (18) Swelling of right extremity Status: Acute Medical Problems: (1) Arthritis (2) Bronchiectasis (3) Cellulitis (4) CKD (chronic kidney disease), stage III (5) COPD, severe (6) GERD (gastroesophageal reflux disease) (7) History of pseudo obstruction of colon (8) HTN (hypertension) (9) Hyperlipidemia (10) Nocturnal hypoxemia (11) Paroxysmal a-fib (12) Pulmonary hypertension (13) Spinal stenosis Surgical Problems: (1) H/O hernia repair (2) H/O: hysterectomy (3) History of cataract surgery (4) History of cholecystectomy (5) S/P lobectomy of lung Family History Diabetes mellitus MOTHER FH: CHF (congestive heart failure) MOTHER Social History Smoking Status: Never Smoker Alcohol Use: none Marital Status: ( of cancer around 2016) Housing Status: lives with significant other Allergies Coded Allergies: Ciprofloxacin (Verified Allergy, Intermediate, hives, itching, 01/09/17) Amoxicillin (Verified Allergy, Mild, itching,TOLERATING ZOSYN 01/04/14, ) Clavulanic Acid (Verified Allergy, Mild, ITCHING,TOLERATING ZOSYN 01/04/14 , 01/09/17) Alendronate (Verified Adverse Reaction, Unknown, feet and hand pain, ) Levofloxacin (Verified Adverse Reaction, Unknown, muscle pain, 01/09/17) Current Inpatient Medications Current Inpatient Medications Medications (Trade) Dose Ordered Sig/Toro Route Start Time Stop Time Status Last Admin Dose Admin Acetaminophen (Tylenol Tab) 650 mg Q4H PRN PO 01/09/17 11:30 02/08/17 11:29 01/10/17 07:40 650 MG Ondansetron HCl (Zofran Inj) 4 mg Q6H PRN IV 01/09/17 11:30 02/08/17 11:29 Insulin Aspart (novoLOG ASPART) SLIDING SCALE If C... ACHS SC 01/09/17 16:00 02/08/17 15:59 01/10/17 09:45 3 UNITS Glucose (Glucose 40% Gel) 15-30 GRAMS 15 GRAMS... UD PRN PO 01/09/17 11:30 02/08/17 11:29 Glucose (Glucose Chew Tab) 4-8 Tablets 4 Tabl... UD PRN PO 01/09/17 11:30 02/08/17 11:29 Dextrose (Dextrose 50% 50ML Syringe) 25-50ML OF 50% DW IV FOR... UD PRN IV 01/09/17 11:30 02/08/17 11:29 Glucagon (Glucagon Inj) 1 mg UD PRN SQ 01/09/17 11:30 02/08/17 11:29 Albuterol (Ventolin Hfa Inhaler) 2 puffs Q4H PRN INH 01/09/17 11:30 02/08/17 11:29 Aspirin (Ecotrin Tab) 81 mg DAILY PO 01/10/17 08:00 02/09/17 08:59 01/10/17 09:28 81 MG Baclofen (Lioresal Tab) 10 mg BID PO 01/09/17 20:00 02/08/17 20:59 01/10/17 09:29 10 MG Budesonide (Pulmicort Respules 0.5MG/ 2ML Neb Soln) 1 mg BIDR INH 01/09/17 20:00 02/08/17 19:59 01/10/17 07:22 1 MG Diltiazem HCl (Cardizem Cd Cap) 240 mg QAM PO 01/10/17 08:00 02/09/17 08:59 01/10/17 09:27 240 MG Docusate Sodium (coLACE CAP) 100 mg BID PO 01/09/17 20:00 02/08/17 20:59 01/10/17 09:39 100 MG Albuterol/ Ipratropium (Duoneb) 3 ml Q4 PRN INH 01/09/17 11:30 02/08/17 11:29 Metoprolol Succinate (Toprol Xl Tab) 50 mg QAM PO 01/10/17 08:00 02/09/17 08:59 01/10/17 09:32 50 MG Prednisone (PredniSONE TAB) 20 mg QAM PO 01/10/17 08:00 02/09/17 08:59 01/10/17 09:30 20 MG Senna/Docusate Sodium (Senokot S Tab) 1 tab DAILY PO 01/10/17 08:00 02/09/17 08:59 01/10/17 09:31 1 TAB Tramadol HCl (Ultram Tab) 50 mg Q6 PRN PO 01/09/17 11:30 02/08/17 11:29 01/10/17 03:30 50 MG Cholecalciferol (Vitamin D Tab) 2,000 inter.unit QAM PO 01/10/17 08:00 02/09/17 08:59 01/10/17 09:33 2,000 INTER.UNIT Pantoprazole Sodium (Protonix Tab) 40 mg QAM PO 01/10/17 08:00 02/09/17 07:59 01/10/17 09:39 40 MG Polyethylene (Miralax Powder Packet) 17 gm DAILYBL PO 01/10/17 11:00 10/21/17 10:59 Sertraline HCl (Zoloft Tab) 25 mg QAM PO 01/10/17 08:00 02/09/17 08:59 01/10/17 09:34 25 MG Miscellaneous Information (Order Awaiting Action) 1 ea QS N/A 01/09/17 16:00 02/08/17 15:59 Piperacillin Sod/ Tazobactam Sod (Consult) 1 ea UD PRN N/A 01/09/17 12:11 02/08/17 12:10 Piperacillin Sod/ Tazobactam Sod 3.375 gm/Dextrose 115 ml @ 28.75 mls/ hr Q8H IV 01/09/17 16:00 01/19/17 15:59 01/10/17 08:10 28.75 MLS/HR Heparin Sodium (Porcine) (Heparin Sq 5000 Unit/0.5ml) 5,000 unit Q8 SQ 01/09/17 22:00 02/08/17 21:59 01/10/17 05:41 5,000 UNIT Gadobutrol (Gadavist) 6.5 mmol UD PRN IV 01/09/17 22:00 01/13/17 21:59 Review of Systems All systems were reviewed and are negative except as per HPI Physical Exam Date Time Temp Pulse Resp B/P (MAP) Pulse Ox O2 Delivery O2 Flow Rate FiO2 01/10/17 11:22 36.8 67 13 133/69 (90) 01/10/17 08:32 36.9 73 13 134/67 (89) 01/10/17 08:00 Room Air 01/10/17 07:22 72 16 91 Room Air 01/10/17 00:57 37.0 69 20 124/64 (84) 91 Room Air 01/10/17 00:00 Room Air 01/09/17 20:00 Room Air 01/09/17 19:31 68 16 94 Room Air 01/09/17 15:13 37.0 70 20 133/63 (86) 91 Room Air 01/09/17 12:19 36.9 73 18 113/57 (75) 90 Room Air General Appearance: WD/WN, + mild distress Head: normocephalic, atraumatic Eyes: normal inspection, EOMI, sclerae normal ENT: normal ENT inspection, pharynx normal Neck: supple, no adenopathy, thyroid normal, trachea midline Respiratory/Chest: chest non-tender, lungs clear, normal breath sounds, no respiratory distress Cardiovascular: no gallop, no murmur, + irregularly irregular Abdomen/GI: normal bowel sounds, non tender, soft, no organomegaly Back: normal inspection, no CVA tenderness Extremities/Musculoskelatal: no calf tenderness, normal capillary refill, + pertinent finding ( right hand and the forearm with tenderness, erythema, swelling) Neurologic/Psych: alert, oriented x 3 Skin: normal color, no rash, + pertinent finding ( right hand and forearm with erythema and tenderness, small scratch on dorsum consistent with cat scratch) Lymphatic: no adenopathy Laboratory Results Last 24 Hours Test 01/09/17 14:06 01/10/17 05:44 Prothrombin Time 10.0 SECONDS Prothromb Time International Ratio 0.9 Activated Partial Thromboplast Time 26.7 SECONDS Partial Thromboplastin Ratio 1.0 White Blood Count 8.82 K/uL Red Blood Count 3.98 M/uL Hemoglobin 11.1 g/dL Hematocrit 37.0 % Mean Corpuscular Volume 93.0 fL Mean Corpuscular Hemoglobin 27.9 pg Mean Corpuscular Hemoglobin Concent 30.0 g/dl Platelet Count 248 K/uL Mean Platelet Volume 9.7 fL Neutrophils (%) (Auto) 71.0 % Lymphocytes (%) (Auto) 15.6 % Monocytes (%) (Auto) 12.1 % Eosinophils (%) (Auto) 0.2 % Basophils (%) (Auto) 0.5 % Neutrophils # (Auto) 6.26 K/uL Lymphocytes # (Auto) 1.38 K/uL Monocytes # (Auto) 1.07 K/uL Eosinophils # (Auto) 0.02 K/uL Basophils # (Auto) 0.04 K/uL RDW Standard Deviation 50.8 fL RDW Coefficient of Variation 14.9 % Immature Granulocyte % (Auto) 0.6 % Immature Granulocyte # (Auto) 0.05 K/uL Erythrocyte Sedimentation Rate 28 mm/hr Sodium Level 140 mmol/L Potassium Level 3.8 mmol/L Chloride Level 103 mmol/L Carbon Dioxide Level 33 mmol/L Anion Gap 4.0 mmol/L Blood Urea Nitrogen 11 mg/dl Creatinine 0.62 mg/dl Est Creatinine Clear Calc Drug Dose 63.6 ml/min Estimated GFR () 99.4 Estimated GFR (Non- 85.8 BUN/Creatinine Ratio 17.7 Random Glucose 103 mg/dl Estimated Average Glucose 131 mg/dl Hemoglobin A1c 6.2 % Calcium Level 8.6 mg/dl C-Reactive Protein 17.20 mg/dl Patient Name: MAK HANLEY I Unit Number: [id number] Dictated: 01/09/172200 Transcribed: 01/09/172200 ARG Printed Date/Time: [~ rep prt dt]/[~ rep prt tm] [~ rep ct labl] - [~ rep ct ivnm] [facility] [place] [address] Dictated: 01/09/172200 Transcribed: 01/09/172200 ARG Printed Date/Time: [~ rep prt dt]/[~ rep prt tm] [~ rep ct labl] - [~ rep ct ivnm] [~ rep ct add3]] MRI THE RIGHT HAND WITHOUT A WITH GADOLINIUM CLINICAL HISTORY: Cellulitis. Right hand swelling. Possible abscess. COMPARISON STUDY: Conventional radiographic study of the head dated 01/09/2017 FINDINGS: Imaging was performed in the axial, sagittal, and coronal planes, before and after administration of 6.5 cc of intravenous Gadavist. There are no areas of marrow edema to indicate occult fracture, or osteomyelitis. There is soft tissue edema most pronounced dorsally. There are no fluid collections to indicate an abscess. There are no pathologically enhancing masses. There are degenerative changes most pronounced the level of the distal interphalangeal joints. IMPRESSION: 1. No evidence of osteomyelitis 2. Soft tissue edema consistent with a cellulitis 3. No evidence of abscess. No MRI evidence of a septic arthritis. Electronically signed by: Albaro Alonso M.D. 01/09/2017 10:06 PM Dictated Date/Time: 01/09/2017 10:01 PM The status of this report is Signed. Draft = Not yet reviewed or approved by Radiologist. Signed = Reviewed and approved by Radiologist. <AttendingPhy>Oscar Braun M.D.</AttendingPhy> <FamilyPhy>Mamadou Torre M.D.(MARCO A)</FamilyPhy> <PrimaryPhy>Mamadou Torre M.D.(MARCO A)</PrimaryPhy> < UnitNumber>[id number]</UnitNumber> <VisitNumber>[id number]</VisitNumber> < PatientName>AMK HANLEY I</PatientName> <DateOfBirth>1935</DateOfBirth> < Location>[facility]</Location> <ServiceDate>01/09/17</ServiceDate> <MNE>ESINDI</MNE> < OrderingPhy>Dimitri Radford D.O.</OrderingPhy> <OrderingPhyMNE>f rep ord dr [place]</OrderingPhyMNE> <DictatingPhyMNE>f rep dict dr [place]</DictatingPhyMNE> < CCListMNE>f rep ct mne</CCListMNE> <AdmittingPhyMNE>f pt admit dr [place]</ AdmittingPhyMNE> <AttendingPhyMNE>f pt attend dr [place]</AttendingPhyMNE> <ConsultingPhyMNE>f pt consult dr [place]</ConsultingPhyMNE> <FamilyPhyMNE>f pt fam dr [place]</FamilyPhyMNE> <OtherPhyMNE>f pt other dr [place]</OtherPhyMNE> < PrimaryPhyMNE>f pt prim care dr [place]</PrimaryPhyMNE> <ReferringPhyMNE>f pt referring dr [place]</ReferringPhyMNE> Assessment & Plan 81-year-old female with cellulitis of the right hand and forearm probably from cat scratch, with pasteurella as well as staph and strep being possibilities as pathogenic given her antibiotic allergies, current treatment is appropriate and will follow clinical response. Will follow.
[2017-01-10] MEDS: POLYETHYLENE (MIRALAX) 17 GM PACK PO SCH (12:16)
--- NOTE | 2017-01-10 16:15 | Orthopedic Progress Note ---
Orthopedic Progress Note Date of Service Jan 10, 2017. Subjective Additional Notes: Patient seen sitting on side of bed. She was not actively elevating her hand, currently resting at side. Per nursing patient refused ice earlier in the day. I stressed the importance of strict elevation and cryotherapy. No acute issues overnight. Objective RUE NVSI +M/R/U/AIN/PIN SILT grossly, however blunted at baseline, +2 radial pulse, compartments soft, +erythema/edema dorsal forearm/wrist/hand, Edema and errythema extends into the digits, no fusiform swelling, no pain with passive extension, +mild tenderness to palpation overlying dorsal hand and digits, no increased pain with flexion/extension of the wrist. No appreciable fluctuance or induration. 4 mm scratch located between dorsal 3rd and 4th digits, proximal to the MCP joints. No drainage. Mild improvement of erythema and edema of RUE Date Time Temp Pulse Resp B/P (MAP) Pulse Ox O2 Delivery O2 Flow Rate FiO2 01/10/17 15:06 36.8 68 18 129/59 (82) 91 01/10/17 11:22 36.8 67 13 133/69 (90) 01/10/17 08:32 36.9 73 13 134/67 (89) 01/10/17 08:00 Room Air 01/10/17 07:22 72 16 91 Room Air 01/10/17 00:57 37.0 69 20 124/64 (84) 91 Room Air 01/10/17 00:00 Room Air 01/09/17 20:00 Room Air 01/09/17 19:31 68 16 94 Room Air Laboratory Results 24 Hours: Test 01/10/17 05:44 White Blood Count 8.82 K/uL Red Blood Count 3.98 M/uL Hemoglobin 11.1 g/dL Hematocrit 37.0 % Mean Corpuscular Volume 93.0 fL Mean Corpuscular Hemoglobin 27.9 pg Mean Corpuscular Hemoglobin Concent 30.0 g/dl Platelet Count 248 K/uL Mean Platelet Volume 9.7 fL Neutrophils (%) (Auto) 71.0 % Lymphocytes (%) (Auto) 15.6 % Monocytes (%) (Auto) 12.1 % Eosinophils (%) (Auto) 0.2 % Basophils (%) (Auto) 0.5 % Neutrophils # (Auto) 6.26 K/uL Lymphocytes # (Auto) 1.38 K/uL Monocytes # (Auto) 1.07 K/uL Eosinophils # (Auto) 0.02 K/uL Basophils # (Auto) 0.04 K/uL Assessment & Plan Assessment: 81 yo female with cellulitis of the right hand and forearm. Plan: -Trend inflammatory markers WBC/ESR/CRP -IV abx - zosyn -NWB RUE -Strict elevation -Ice therapy
[2017-01-10] MEDS ORDERED: HYDROmorphone INJ 1 MG/ML SYR IV STA (17:25)
--- NOTE | 2017-01-10 19:34 | Progress Note ---
Internal Med Progress Note Date of Service: Jan 10, 2017. Provider Documentation: SUBJECTIVE: patient seen at the bedside. her main complaints have been back pain that is chronic. patient not in acute pain from right hand and upper extremity swelling and erythema. OBJECTIVE: General Appearance: has back pain Head: normocephalic, atraumatic Eyes: normal inspection ENT: hearing grossly normal, pharynx normal Neck: supple, trachea midline Respiratory/Chest: normal breath sounds, no respiratory distress, no accessory muscle use, Zio monitor in place on chest Cardiovascular: regular rate, rhythm, no murmur Abdomen/GI: normal bowel sounds, non tender, soft Back: lower back pain with pain more of the right side that is chronic Extremities: no calf tenderness, no pedal edema, (right 3rd, 4th, and 5th MCP, 3rd and 4th PIP joints tender. wrist is nontender. limited ROM of right wrist and fingers. right elbow ROM WNL) Neurologic/Psych: alert, normal mood/affect, oriented x 3 Skin: erythema, warmth, swelling dorsum of right hand with extension skilled nursing up the anterior forearm. tiny punctate lesion between 3rd and 4th MCP joints. has scabbed prior skin tears on left arm and right leg ASSESSMENT & PLAN: RIGHT HAND CELLULITIS In setting of possible cat scratch vs. bite in setting of diabetes and chronic steroids Treated with IV Rocephin overnight in ER, sent home on Omnicef and Flagyl (did not take yet), returned for worsening cellulitis Blood cultures obtained in ER, check wound culture, pending results Continue IV Zosyn, Leukocytosis downtrending Tetanus status addressed by ER, last TDAP in 2010, per ER attending, given nature of injury and clean wound, no tetanus booster indicated Orthopedics following the patient, MRI of right upper extremity negative for osteomyelitis or abscess Back pain: lower back pain with pain more of the right side that is chronic on tramadol, gave a stat dose of Dilaudid when acute pain pain management consult bowel regimen if getting narcotics ordered as Miralax SEVERE COPD Requiring nocturnal O2 and chronic steroids Not in exacerbation Continue prednisone 20 mg daily, home inhalers, nebs, Accolate Supplemental O2 per protocol PAROXYSMAL ATRIAL FIBRILLATION Rate is controlled Continue Cardizem and metoprolol Not on anticoagulation- discontinued by PCP several months ago Currently on Zio monitor ordered by Dr. Chun DM TYPE 2 Hold metformin Novolog sliding scale HYPERTENSION BP is stable Continue home meds CKD STAGE III Creatinine is stable Monitor renal function [place] DRUG MONITORING Database queried, no issues identified DVT PROPHYLAXIS SCD's, heparin SQ- would need to hold if any procedure is anticipated CODE STATUS Full code Vital Signs: Date Time Temp Pulse Resp B/P (MAP) Pulse Ox O2 Delivery O2 Flow Rate FiO2 01/10/17 16:00 Room Air 01/10/17 15:06 36.8 68 18 129/59 (82) 91 Room Air 01/10/17 11:22 36.8 67 13 133/69 (90) 01/10/17 08:32 36.9 73 13 134/67 (89) 01/10/17 08:00 Room Air 01/10/17 07:22 72 16 91 Room Air 01/10/17 00:57 37.0 69 20 124/64 (84) 91 Room Air 01/10/17 00:00 Room Air 01/09/17 20:00 Room Air Lab Results: Results Past 24 Hours Test 01/09/17 20:01 01/10/17 05:44 01/10/17 08:20 01/10/17 11:34 Range/Units Bedside Glucose 100 148 179 70-90 mg/dl White Blood Count 8.82 4.8-10.8 K/uL Red Blood Count 3.98 4.2-5.4 M/uL Hemoglobin 11.1 12.0-16.0 g/dL Hematocrit 37.0 37-47 % Mean Corpuscular Volume 93.0 80-100 fL Mean Corpuscular Hemoglobin 27.9 25-34 pg Mean Corpuscular Hemoglobin Concent 30.0 32-36 g/dl Platelet Count 248 130-400 K/uL Mean Platelet Volume 9.7 7.4-10.4 fL Neutrophils (%) (Auto) 71.0 % Lymphocytes (%) (Auto) 15.6 % Monocytes (%) (Auto) 12.1 % Eosinophils (%) (Auto) 0.2 % Basophils (%) (Auto) 0.5 % Neutrophils # (Auto) 6.26 1.4-6.5 K/uL Lymphocytes # (Auto) 1.38 1.2-3.4 K/uL Monocytes # (Auto) 1.07 0.11-0.59 K/uL Eosinophils # (Auto) 0.02 0-0.5 K/uL Basophils # (Auto) 0.04 0-0.2 K/uL RDW Standard Deviation 50.8 36.4-46.3 fL RDW Coefficient of Variation 14.9 11.5-14.5 % Immature Granulocyte % (Auto) 0.6 % Immature Granulocyte # (Auto) 0.05 0.00-0.02 K/uL Erythrocyte Sedimentation Rate 28 0-21 mm/hr Sodium Level 140 136-145 mmol/L Potassium Level 3.8 3.5-5.1 mmol/L Chloride Level 103 98-107 mmol/L Carbon Dioxide Level 33 21-32 mmol/L Anion Gap 4.0 3-11 mmol/L Blood Urea Nitrogen 11 7-18 mg/dl Creatinine 0.62 0.60-1.20 mg/dl Est Creatinine Clear Calc Drug Dose 63.6 ml/min Estimated GFR () 99.4 Estimated GFR (Non- 85.8 BUN/Creatinine Ratio 17.7 10-20 Random Glucose 103 70-99 mg/dl Estimated Average Glucose 131 mg/dl Hemoglobin A1c 6.2 4.5-5.6 % Calcium Level 8.6 8.5-10.1 mg/dl C-Reactive Protein 17.20 0-0.29 mg/dl Test 01/10/17 16:34 Range/Units Bedside Glucose 200 70-90 mg/dl
[2017-01-11] MEDS ORDERED: OXYCODONE HCL IR 5 MG TAB (IMMEDIATE RELEASE) PO STA (02:42)
[2017-01-11] MEDS: HEPARIN SOD 5000 UNIT/0.5 ML CARP SQ SCH ×3 (05:46→21:35)
[2017-01-11] MEDS: ONDANSETRON INJ 2 MG/ML 2 ML VIAL IV PRN ×2 (05:47→11:21)
[2017-01-11 05:54] LABS: BASO % 0.4 %; BASO ABS # 0.03 K/uL (0-0.2); COMPLETE YES; EOS % 0.5 %; HEMATOCRIT 36.7 % (37-47); IG% 0.9 %; LYMPH % 13.9 %; LYMPH ABS # 1.04 K/uL (1.2-3.4); MEAN CORPUSCULAR HEMOGLOBIN 28.7 pg (25-34); MEAN CORPUSCULAR HGB CONC 31.9 g/dl (32-36); MEAN PLATELET VOLUME 9.4 fL (7.4-10.4); MONO % 10.7 %; NEUT % 73.6 %; PLATELET COUNT 244 K/uL (130-400); RED BLOOD COUNT 4.08 M/uL (4.2-5.4); WHITE BLOOD COUNT 7.46 K/uL (4.8-10.8)
[2017-01-11 06:29] LABS: BUN/CREATININE RATIO 14.1 (10-20); C-REACTIVE PROTEIN 14.8 mg/dl (0-0.29); CREATININE 0.59 mg/dl (0.60-1.20); POTASSIUM 3.8 mmol/L (3.5-5.1)
[2017-01-11 06:32] LABS: ALB/GLOB RATIO 0.8 (0.9-2)
[2017-01-11 07:04] VITALS: PULSE 84; O2SAT 91
[2017-01-11] MEDS: BUDESONIDE 0.5 MG/2 ML VIAL (PULMICORT) INH SCH ×2 (07:04→19:19)
[2017-01-11 07:29] VITALS: BP 148/68; PULSE 64; TEMP 36.8; O2SAT 91
[2017-01-11] MEDS: METOPROLOL SUCC 50MG EXT REL TAB PO SCH (07:56)
[2017-01-11] MEDS: DOCUSATE SODIUM 100 MG CAP PO SCH ×2 (07:56→20:33)
[2017-01-11] MEDS: SERTRALINE HCL 50 MG TAB PO SCH (07:56)
[2017-01-11] MEDS: TRAMADOL HCL 50 MG TAB PO PRN ×2 (07:56→19:00)
[2017-01-11] MEDS: DOCUSATE SODIUM/SENNA 50/8.6MG TAB PO SCH (07:56)
[2017-01-11] MEDS: CHOLECALCIFEROL 1000 INTER.UNIT TAB PO SCH (07:57)
[2017-01-11] MEDS: DILTIAZEM HCL 240 MG CAPCR PO SCH (07:57)
[2017-01-11] MEDS: ASPIRIN 81 MG ECTAB PO SCH (07:57)
[2017-01-11] MEDS: POLYETHYLENE (MIRALAX) 17 GM PACK PO SCH (07:57)
[2017-01-11] MEDS: PIPERACILL/TAZOBAC IV 3.375 GM in DEXTROSE 5% 100ML IV SCH ×2 (08:00→15:35)
[2017-01-11] MEDS: INSULIN ASPART 100 UNITS/ML 3 ML PEN SC SCH ×4 (08:09→21:00)
[2017-01-11] MEDS: BACLOFEN 10 MG TAB PO SCH ×2 (08:14→20:33)
[2017-01-11] MEDS: PANTOprazole SOD 40 MG TAB PO SCH (08:14)
[2017-01-11] MEDS: ACETAMINOPHEN 325 MG TAB PO PRN ×2 (11:21→16:38)
[2017-01-11 15:30] VITALS: BP 123/68; PULSE 61; TEMP 36.9; O2SAT 91
--- NOTE | 2017-01-11 16:27 | Progress Note ---
Internal Med Progress Note Date of Service: Jan 11, 2017. Provider Documentation: SUBJECTIVE: patient was seen today with less back pain. right hand and upper extremity less inflamed and less erythematous. is now able to flex the fingers of her right hand a little bit. OBJECTIVE: General Appearance: has back pain Head: normocephalic, atraumatic Eyes: normal inspection ENT: hearing grossly normal, pharynx normal Neck: supple, trachea midline Respiratory/Chest: normal breath sounds, no respiratory distress, no accessory muscle use, Zio monitor in place on chest Cardiovascular: regular rate, rhythm, no murmur Abdomen/GI: normal bowel sounds, non tender, soft Back: lower back pain with pain more of the right side that is chronic Extremities: no calf tenderness, no pedal edema, (right 3rd, 4th, and 5th MCP, 3rd and 4th PIP joints tender. wrist is nontender. limited ROM of right wrist and fingers. right elbow ROM WNL) Neurologic/Psych: alert, normal mood/affect, oriented x 3 Skin: erythema, warmth, swelling dorsum of right hand with extension longterm up the anterior forearm. tiny punctate lesion between 3rd and 4th MCP joints. has scabbed prior skin tears on left arm and right leg ASSESSMENT & PLAN: RIGHT HAND CELLULITIS In setting of possible cat scratch vs. bite in setting of diabetes and chronic steroids Treated with IV Rocephin overnight in ER, sent home on Omnicef and Flagyl (did not take yet), returned for worsening cellulitis Tetanus status addressed by ER, last TDAP in 2010, per ER attending, given nature of injury and clean wound, no tetanus booster indicated Orthopedics following the patient, MRI of right upper extremity negative for osteomyelitis or abscess Blood culture on 01/09/17 no growth to date Continue IV Zosyn Back pain: lower back pain with pain more of the right side that is chronic on tramadol, gave a stat dose of Dilaudid when acute pain pain management consulted, appreciate recommendations bowel regimen if getting narcotics ordered as Miralax SEVERE COPD Requiring nocturnal O2 and chronic steroids Not in exacerbation Continue prednisone 20 mg daily, home inhalers, nebs, Accolate Supplemental O2 per protocol PAROXYSMAL ATRIAL FIBRILLATION Rate is controlled Continue Cardizem and metoprolol Not on anticoagulation- discontinued by PCP several months ago Currently on Zio monitor ordered by Dr. Chun DM TYPE 2 Hold metformin Novolog sliding scale HYPERTENSION BP is stable Continue home meds CKD STAGE III Creatinine is stable Monitor renal function [place] DRUG MONITORING Database queried, no issues identified DVT PROPHYLAXIS SCD's, heparin SQ- would need to hold if any procedure is anticipated CODE STATUS Full code Vital Signs: Date Time Temp Pulse Resp B/P (MAP) Pulse Ox O2 Delivery O2 Flow Rate FiO2 01/11/17 15:30 36.9 61 22 123/68 (86) 91 Room Air 01/11/17 08:00 Room Air 01/11/17 07:29 36.8 64 20 148/68 (94) 91 Room Air 01/11/17 07:04 84 16 91 Room Air 01/11/17 00:15 Room Air 01/10/17 23:57 36.8 61 18 126/65 (85) 92 Room Air 01/10/17 20:06 65 16 94 Room Air Lab Results: Results Past 24 Hours Test 01/10/17 16:34 01/10/17 20:31 01/11/17 05:31 01/11/17 07:41 Range/Units Bedside Glucose 200 153 112 70-90 mg/dl White Blood Count 7.46 4.8-10.8 K/uL Red Blood Count 4.08 4.2-5.4 M/uL Hemoglobin 11.7 12.0-16.0 g/dL Hematocrit 36.7 37-47 % Mean Corpuscular Volume 90.0 80-100 fL Mean Corpuscular Hemoglobin 28.7 25-34 pg Mean Corpuscular Hemoglobin Concent 31.9 32-36 g/dl Platelet Count 244 130-400 K/uL Mean Platelet Volume 9.4 7.4-10.4 fL Neutrophils (%) (Auto) 73.6 % Lymphocytes (%) (Auto) 13.9 % Monocytes (%) (Auto) 10.7 % Eosinophils (%) (Auto) 0.5 % Basophils (%) (Auto) 0.4 % Neutrophils # (Auto) 5.48 1.4-6.5 K/uL Lymphocytes # (Auto) 1.04 1.2-3.4 K/uL Monocytes # (Auto) 0.80 0.11-0.59 K/uL Eosinophils # (Auto) 0.04 0-0.5 K/uL Basophils # (Auto) 0.03 0-0.2 K/uL RDW Standard Deviation 48.3 36.4-46.3 fL RDW Coefficient of Variation 14.7 11.5-14.5 % Immature Granulocyte % (Auto) 0.9 % Immature Granulocyte # (Auto) 0.07 0.00-0.02 K/uL Erythrocyte Sedimentation Rate 52 0-21 mm/hr Sodium Level 137 136-145 mmol/L Potassium Level 3.8 3.5-5.1 mmol/L Chloride Level 101 98-107 mmol/L Carbon Dioxide Level 35 21-32 mmol/L Anion Gap 1.0 3-11 mmol/L Blood Urea Nitrogen 8 7-18 mg/dl Creatinine 0.59 0.60-1.20 mg/dl Est Creatinine Clear Calc Drug Dose 66.8 ml/min Estimated GFR () 101.0 Estimated GFR (Non- 87.2 BUN/Creatinine Ratio 14.1 10-20 Random Glucose 95 70-99 mg/dl Calcium Level 9.0 8.5-10.1 mg/dl Total Bilirubin 0.9 0.2-1 mg/dl Aspartate Amino Transf (AST/SGOT) 36 15-37 U/L Alanine Aminotransferase (ALT/SGPT) 58 12-78 U/L Alkaline Phosphatase 74 45-117 U/L C-Reactive Protein 14.80 0-0.29 mg/dl Total Protein 6.6 6.4-8.2 gm/dl Albumin 2.9 3.4-5.0 gm/dl Globulin 3.7 2.5-4.0 gm/dl Albumin/Globulin Ratio 0.8 0.9-2 Test 01/11/17 11:31 Range/Units Bedside Glucose 156 70-90 mg/dl
--- NOTE | 2017-01-11 17:44 | Pain Management Consultation ---
Pain Management Consultation Date of Consultation Jan 11, 2017. Reason for Consultation Pain management. Pain Location 1 - Left flank. History Megan Jin is a 81-year-old female admitted to [facility] with right arm cellulitis. She has a right upper extremity cellulitis being treated with IV antibiotics. She has left-sided flank pain of chronic duration. 3 months ago, she sought an orthopedic surgeon and underwent an injection which appears to be a left-sided trigger point injection with good efficacy lasting several months. She has an appointment on the to undergo a repeat injection. She also uses tramadol 50 mg once a day and baclofen once or twice a day with good efficacy and no perceived side effects. She reports explains her typical pain in the hospital without any change in intensity, radiation, or character. She denies any radicular symptoms including numbness, weakness, bowel or bladder incontinence. She denies any trauma or injury as cause of her symptoms. Denies any history of shingles in the area. Past Medical/Surgical History (1) Paroxysmal a-fib (2) COPD, severe (3) GERD (gastroesophageal reflux disease) (4) Bronchiectasis (5) Nocturnal hypoxemia (6) Spinal stenosis (7) Arthritis (8) Hyperlipidemia (9) History of pseudo obstruction of colon (10) HTN (hypertension) (11) Pulmonary hypertension (12) CKD (chronic kidney disease), stage III (13) H/O: hysterectomy (14) History of cholecystectomy (15) S/P lobectomy of lung (16) History of cataract surgery Family History Diabetes mellitus MOTHER FH: CHF (congestive heart failure) MOTHER Social / Work History Alcohol Use: none Marital Status: ( of cancer around 2016) Housing Status: lives alone (has home health nurse. ambulates with walker. no recent fall. ) Allergies Coded Allergies: Ciprofloxacin (Verified Allergy, Intermediate, hives, itching, 01/09/17) Amoxicillin (Verified Allergy, Mild, itching,TOLERATING ZOSYN 01/04/14, ) Clavulanic Acid (Verified Allergy, Mild, ITCHING,TOLERATING ZOSYN 01/04/14 , 01/09/17) Alendronate (Verified Adverse Reaction, Unknown, feet and hand pain, ) Levofloxacin (Verified Adverse Reaction, Unknown, muscle pain, 01/09/17) Medications Current Inpatient Medications Medications (Trade) Dose Ordered Sig/Toro Route Start Time Stop Time Status Last Admin Dose Admin Acetaminophen (Tylenol Tab) 650 mg Q4H PRN PO 01/09/17 11:30 02/08/17 11:29 01/11/17 11:21 650 MG Ondansetron HCl (Zofran Inj) 4 mg Q6H PRN IV 01/09/17 11:30 02/08/17 11:29 01/11/17 11:21 4 MG Insulin Aspart (novoLOG ASPART) SLIDING SCALE If C... ACHS SC 01/09/17 16:00 02/08/17 15:59 01/11/17 08:09 3 UNITS Glucose (Glucose 40% Gel) 15-30 GRAMS 15 GRAMS... UD PRN PO 01/09/17 11:30 02/08/17 11:29 Glucose (Glucose Chew Tab) 4-8 Tablets 4 Tabl... UD PRN PO 01/09/17 11:30 02/08/17 11:29 Dextrose (Dextrose 50% 50ML Syringe) 25-50ML OF 50% DW IV FOR... UD PRN IV 01/09/17 11:30 02/08/17 11:29 Glucagon (Glucagon Inj) 1 mg UD PRN SQ 01/09/17 11:30 02/08/17 11:29 Albuterol (Ventolin Hfa Inhaler) 2 puffs Q4H PRN INH 01/09/17 11:30 02/08/17 11:29 Aspirin (Ecotrin Tab) 81 mg DAILY PO 01/10/17 08:00 02/09/17 08:59 01/11/17 07:57 81 MG Baclofen (Lioresal Tab) 10 mg BID PO 01/09/17 20:00 02/08/17 20:59 01/11/17 08:14 10 MG Budesonide (Pulmicort Respules 0.5MG/ 2ML Neb Soln) 1 mg BIDR INH 01/09/17 20:00 02/08/17 19:59 01/11/17 07:04 1 MG Diltiazem HCl (Cardizem Cd Cap) 240 mg QAM PO 01/10/17 08:00 02/09/17 08:59 01/11/17 07:57 240 MG Docusate Sodium (coLACE CAP) 100 mg BID PO 01/09/17 20:00 02/08/17 20:59 01/11/17 07:56 100 MG Albuterol/ Ipratropium (Duoneb) 3 ml Q4 PRN INH 01/09/17 11:30 02/08/17 11:29 Metoprolol Succinate (Toprol Xl Tab) 50 mg QAM PO 01/10/17 08:00 02/09/17 08:59 01/11/17 07:56 50 MG Prednisone (PredniSONE TAB) 20 mg QAM PO 01/10/17 08:00 02/09/17 08:59 01/11/17 07:56 20 MG Senna/Docusate Sodium (Senokot S Tab) 1 tab DAILY PO 01/10/17 08:00 02/09/17 08:59 01/11/17 07:56 1 TAB Tramadol HCl (Ultram Tab) 50 mg Q6 PRN PO 01/09/17 11:30 02/08/17 11:29 01/11/17 07:56 50 MG Cholecalciferol (Vitamin D Tab) 2,000 inter.unit QAM PO 01/10/17 08:00 02/09/17 08:59 01/11/17 07:57 2,000 INTER.UNIT Polyethylene (Miralax Powder Packet) 17 gm DAILYBL PO 01/10/17 11:00 02/09/17 10:59 01/11/17 07:57 17 GM Sertraline HCl (Zoloft Tab) 25 mg QAM PO 01/10/17 08:00 02/09/17 08:59 01/11/17 07:56 25 MG Miscellaneous Information (Order Awaiting Action) 1 ea QS N/A 01/09/17 16:00 02/08/17 15:59 Piperacillin Sod/ Tazobactam Sod (Consult) 1 ea UD PRN N/A 01/09/17 12:11 02/08/17 12:10 Piperacillin Sod/ Tazobactam Sod 3.375 gm/Dextrose 115 ml @ 28.75 mls/ hr Q8H IV 01/09/17 16:00 01/19/17 15:59 01/11/17 15:35 28.75 MLS/HR Heparin Sodium (Porcine) (Heparin Sq 5000 Unit/0.5ml) 5,000 unit Q8 SQ 01/09/17 22:00 02/08/17 21:59 01/11/17 13:20 5,000 UNIT Gadobutrol (Gadavist) 6.5 mmol UD PRN IV 01/09/17 22:00 01/13/17 21:59 Pantoprazole Sodium (Protonix Tab) 40 mg QAM PO 01/11/17 08:00 02/09/17 07:59 01/11/17 08:14 40 MG Review of Systems Denies any recent history of fever, night sweats, unexplained weight loss, or constitutional symptoms. Otherwise, 8 point review of system has been reported to be negative. Physical Exam Height & Weight: Height 5 feet, 4.00 inches. Weight 65.000 (Kilograms) 143 (Pounds) Last Vital Signs Documentation Date Time Temp Pulse Resp B/P (MAP) Pulse Ox O2 Delivery O2 Flow Rate FiO2 01/11/17 15:30 36.9 61 22 123/68 (86) 91 Room Air 01/09/17 11:29 2.0 Exam: Megan Jin appears her stated age of 81. She is awake, alert and oriented. Appears comfortable in a recliner. Inspection lumbar spine demonstrates loss of lumbar lordosis with exaggerated thoracic kyphosis. She has decreased range of motion in all planes due to deconditioning. Palpation of the spinous processes and interspinous ligaments produces no pain. Provocative testing the facet joints is unremarkable. Provocative testing of the SI joints is unremarkable. She has chronic venous stasis changes in lower extremity. Straight leg raising is negative. Sensation motor strength are symmetrical and lower extremities. She has diffuse myofascial tenderness over the left iliocostalis muscle over the right iliac crest region. No specific trigger points identifiable. Laboratory Laboratory Results (Last CBC): 01/11/17 05:31 Red Blood Count 4.08 L, Mean Corpuscular Volume 90.0, Mean Corpuscular Hemoglobin 28.7, Mean Corpuscular Hemoglobin Concent 31.9 L, Mean Platelet Volume 9.4, Neutrophils (%) (Auto) 73.6, Lymphocytes (%) (Auto) 13.9, Monocytes (%) (Auto) 10.7, Eosinophils (%) (Auto) 0.5, Basophils (%) (Auto) 0.4, Neutrophils # (Auto) 5.48, Lymphocytes # (Auto) 1.04 L, Monocytes # (Auto) 0.80 H, Eosinophils # (Auto) 0.04, Basophils # (Auto) 0.03 [place] Drug Monitoring Program Search Results: patient reviewed within database, no issues identified Opioid Risk Assessment Risk assessment performed, no issues identified Assessment 1. Myofascial pain. 2. Lumbar spinal stenosis. Recommendations 1. Continue baclofen and tramadol. 2. Add hydrocodone for acute excerebration if needed short term. 3. Diclofenac gel. 4. Orders written. 5. Defer injections at present since patient has an active infection. Can f/u with orthopedist she is currently under care of for scheduled injection next week.
--- NOTE | 2017-01-11 17:56 | DIAGNOSTIC IMAGING REPORT ---
LUMBAR SPINE COMBINATION HISTORY: Pain back pain TECHNIQUE: Multiplanar multisequence MRI of the lumbar spine was performed both before and after the intravenous administration of contrast. COMPARISON: None. FINDINGS: For the purpose of the report the L5-S1 disc space will be located on axial image 22 of 25. Severe degenerative disc change throughout the entire lumbar region. Posterior extra dural defects at virtually all levels of the low thoracic as well as entire lumbar region. Grade 1 anterolisthesis of L4 and L5 secondary to degenerative changes of posterior elements. Anterolisthesis is estimated at 5 mm. L1-L2: Moderate broad-based posterior disc herniation with extruded disc fragment occupying the right lateral recess. It also creates significant narrowing of the right neuroforamina. Maximum dimensions of the extruded fragment are 1.4 x 0.7 cm. L2-L3: Broad-based disc herniation with considerable impact upon the anterior thecal sac. Considerable narrowing of the left neural foramina secondary to an extruded disc fragment measuring 5 x 4 mm.. L3-L4: Severe multifactorial spinal stenosis. Small extruded disc fragment occupying the right lateral recess. Considerable narrowing of the neuroforamina bilaterally. L4-L5: Large left posterior disc herniation. Significant deformity left anterior aspect of thecal sac with severe stenotic change left and to lesser extent right neuroforamina. Findings accentuated by hypertrophic changes of the posterior elements. L5-S1: Central bulging disc. Moderate osteophytic narrowing left neuroforamina. IMPRESSION: 1. Severe degenerative disc change throughout. 2. Significant left posterior disc herniation L4-L5 creating significant deformity of the left lateral thecal sac and severe narrowing of the left and to lesser extent right neuroforamina. 3. Significant multifocal narrowing of the spinal canal L3-L4. Small extruded disc fragment occupying the right lateral recess 4. Broad-based disc herniation L2-L3 with an extruded disc fragment occupying the left neuroforamina. 5. Broad-based disc herniation L1-L2 with an extruded disc fragment occupying the right lateral recess. 6. grade 1 anterolisthesis of L4 and L5 accentuating all findings at that level. The above report was generated using voice recognition software. It may contain grammatical, syntax or spelling errors. Electronically signed by: Rojelio Sorto M.D. 01/11/2017 5:55 PM Dictated Date/Time: 01/11/2017 5:47 PM
[2017-01-11] MEDS ORDERED: GADAVIST IV PRN (18:00)
--- NOTE | 2017-01-11 18:03 | Infectious Disease Progress Nt ---
Progress Note Date of Service Jan 11, 2017. Subjective Pt evaluation today including: conversation w/ patient, conversation w/ family , physical exam, chart review, lab review, review of studies, conversation w/ mergers and acquisitions consultant, review of inpatient medication list Patient notes some improvement in the swelling and pain in her right arm. Tolerating antibiotics without apparent difficulty. Remains afebrile. All Other Systems: Reviewed and Negative Medications Current Inpatient Medications Medications (Trade) Dose Ordered Sig/Toro Route Start Time Stop Time Status Last Admin Dose Admin Acetaminophen (Tylenol Tab) 650 mg Q4H PRN PO 01/09/17 11:30 02/08/17 11:29 01/11/17 16:38 650 MG Ondansetron HCl (Zofran Inj) 4 mg Q6H PRN IV 01/09/17 11:30 02/08/17 11:29 01/11/17 11:21 4 MG Insulin Aspart (novoLOG ASPART) SLIDING SCALE If C... ACHS SC 01/09/17 16:00 02/08/17 15:59 01/11/17 08:09 3 UNITS Glucose (Glucose 40% Gel) 15-30 GRAMS 15 GRAMS... UD PRN PO 01/09/17 11:30 02/08/17 11:29 Glucose (Glucose Chew Tab) 4-8 Tablets 4 Tabl... UD PRN PO 01/09/17 11:30 02/08/17 11:29 Dextrose (Dextrose 50% 50ML Syringe) 25-50ML OF 50% DW IV FOR... UD PRN IV 01/09/17 11:30 02/08/17 11:29 Glucagon (Glucagon Inj) 1 mg UD PRN SQ 01/09/17 11:30 02/08/17 11:29 Albuterol (Ventolin Hfa Inhaler) 2 puffs Q4H PRN INH 01/09/17 11:30 02/08/17 11:29 Aspirin (Ecotrin Tab) 81 mg DAILY PO 01/10/17 08:00 02/09/17 08:59 01/11/17 07:57 81 MG Baclofen (Lioresal Tab) 10 mg BID PO 01/09/17 20:00 02/08/17 20:59 01/11/17 08:14 10 MG Budesonide (Pulmicort Respules 0.5MG/ 2ML Neb Soln) 1 mg BIDR INH 01/09/17 20:00 02/08/17 19:59 01/11/17 07:04 1 MG Diltiazem HCl (Cardizem Cd Cap) 240 mg QAM PO 01/10/17 08:00 02/09/17 08:59 01/11/17 07:57 240 MG Docusate Sodium (coLACE CAP) 100 mg BID PO 01/09/17 20:00 02/08/17 20:59 01/11/17 07:56 100 MG Albuterol/ Ipratropium (Duoneb) 3 ml Q4 PRN INH 01/09/17 11:30 02/08/17 11:29 Metoprolol Succinate (Toprol Xl Tab) 50 mg QAM PO 01/10/17 08:00 02/09/17 08:59 01/11/17 07:56 50 MG Prednisone (PredniSONE TAB) 20 mg QAM PO 01/10/17 08:00 02/09/17 08:59 01/11/17 07:56 20 MG Senna/Docusate Sodium (Senokot S Tab) 1 tab DAILY PO 01/10/17 08:00 02/09/17 08:59 01/11/17 07:56 1 TAB Tramadol HCl (Ultram Tab) 50 mg Q6 PRN PO 01/09/17 11:30 02/08/17 11:29 01/11/17 07:56 50 MG Cholecalciferol (Vitamin D Tab) 2,000 inter.unit QAM PO 01/10/17 08:00 02/09/17 08:59 01/11/17 07:57 2,000 INTER.UNIT Polyethylene (Miralax Powder Packet) 17 gm DAILYBL PO 01/10/17 11:00 02/09/17 10:59 01/11/17 07:57 17 GM Sertraline HCl (Zoloft Tab) 25 mg QAM PO 01/10/17 08:00 02/09/17 08:59 01/11/17 07:56 25 MG Miscellaneous Information (Order Awaiting Action) 1 ea QS N/A 01/09/17 16:00 02/08/17 15:59 Piperacillin Sod/ Tazobactam Sod (Consult) 1 ea UD PRN N/A 01/09/17 12:11 02/08/17 12:10 Piperacillin Sod/ Tazobactam Sod 3.375 gm/Dextrose 115 ml @ 28.75 mls/ hr Q8H IV 01/09/17 16:00 01/19/17 15:59 01/11/17 15:35 28.75 MLS/HR Heparin Sodium (Porcine) (Heparin Sq 5000 Unit/0.5ml) 5,000 unit Q8 SQ 01/09/17 22:00 02/08/17 21:59 01/11/17 13:20 5,000 UNIT Gadobutrol (Gadavist) 6.5 mmol UD PRN IV 01/09/17 22:00 01/13/17 21:59 Pantoprazole Sodium (Protonix Tab) 40 mg QAM PO 01/11/17 08:00 02/09/17 07:59 01/11/17 08:14 40 MG Gadobutrol (Gadavist) 6.5 mmol UD PRN IV 01/11/17 18:00 01/15/17 17:59 Diclofenac Sodium (Voltaren 1% Top Gel) 1 appln BID EXT 01/11/17 20:00 02/10/17 19:59 Acetaminophen/ Hydrocodone Bitart ([place] 5/325 Tab) 1 tab Q6WK PRN PO 01/11/17 17:45 01/25/17 17:44 UNV Objective Vital Signs Date Time Temp Pulse Resp B/P (MAP) Pulse Ox O2 Delivery O2 Flow Rate FiO2 01/11/17 16:00 Room Air 01/11/17 15:30 36.9 61 22 123/68 (86) 91 Room Air 01/11/17 08:00 Room Air 01/11/17 07:29 36.8 64 20 148/68 (94) 91 Room Air 01/11/17 07:04 84 16 91 Room Air 01/11/17 00:15 Room Air 01/10/17 23:57 36.8 61 18 126/65 (85) 92 Room Air 01/10/17 20:06 65 16 94 Room Air Physical Exam General Appearance: WD/WN, no apparent distress Eyes: normal inspection, sclerae normal ENT: normal ENT inspection, pharynx normal Neck: supple, no adenopathy, trachea midline Respiratory/Chest: lungs clear, normal breath sounds, no respiratory distress Cardiovascular: regular rate, rhythm, no gallop, no murmur Abdomen: normal bowel sounds, non tender, soft, no organomegaly Extremities: non-tender, no calf tenderness Neurologic/Psychiatric: alert, oriented x 3 Skin: normal color, no rash, + pertinent finding (Improving right arm swelling and erythema) Lymphatic: no adenopathy Laboratory Results RUN DATE: 01/11/17 [facility] LAB PAGE 1 RUN TIME: 715 Specimen Inquiry PATIENT: MAK HANLEY I LOC: [facility] U # : [id number] AGE/SX: 81/F ROOM: E406 REG : 01/09/[address]: Oscar Braun M.D. : 1935 BED: 1 DIS : STATUS: ADM IN TLOC: SPEC #: [id number] BIRDIE: 01/09/17 STATUS: RES REQ #: [id number] RECD: 01/09/17-[address]: Hipolito Manuel PA -C SOURCE: BLOOD ENTR: 01/09/17-[address] [facility] [address]: Mamadou Torre M.D.(HU[facility]) SPDC: Angelo Lobato M.D. ORDERED: BLOOD CULTURE Procedure Result Verified Site BLD CULT Preliminary 01/11/17-715 NO GROWTH TO DATE. Last 24 Hours Test 01/10/17 20:31 01/11/17 05:31 01/11/17 07:41 01/11/17 11:31 Bedside Glucose 153 mg/dl 112 mg/dl 156 mg/dl White Blood Count 7.46 K/uL Red Blood Count 4.08 M/uL Hemoglobin 11.7 g/dL Hematocrit 36.7 % Mean Corpuscular Volume 90.0 fL Mean Corpuscular Hemoglobin 28.7 pg Mean Corpuscular Hemoglobin Concent 31.9 g/dl Platelet Count 244 K/uL Mean Platelet Volume 9.4 fL Neutrophils (%) (Auto) 73.6 % Lymphocytes (%) (Auto) 13.9 % Monocytes (%) (Auto) 10.7 % Eosinophils (%) (Auto) 0.5 % Basophils (%) (Auto) 0.4 % Neutrophils # (Auto) 5.48 K/uL Lymphocytes # (Auto) 1.04 K/uL Monocytes # (Auto) 0.80 K/uL Eosinophils # (Auto) 0.04 K/uL Basophils # (Auto) 0.03 K/uL RDW Standard Deviation 48.3 fL RDW Coefficient of Variation 14.7 % Immature Granulocyte % (Auto) 0.9 % Immature Granulocyte # (Auto) 0.07 K/uL Erythrocyte Sedimentation Rate 52 mm/hr Sodium Level 137 mmol/L Potassium Level 3.8 mmol/L Chloride Level 101 mmol/L Carbon Dioxide Level 35 mmol/L Anion Gap 1.0 mmol/L Blood Urea Nitrogen 8 mg/dl Creatinine 0.59 mg/dl Est Creatinine Clear Calc Drug Dose 66.8 ml/min Estimated GFR () 101.0 Estimated GFR (Non- 87.2 BUN/Creatinine Ratio 14.1 Random Glucose 95 mg/dl Calcium Level 9.0 mg/dl Total Bilirubin 0.9 mg/dl Aspartate Amino Transf (AST/SGOT) 36 U/L Alanine Aminotransferase (ALT/SGPT) 58 U/L Alkaline Phosphatase 74 U/L C-Reactive Protein 14.80 mg/dl Total Protein 6.6 gm/dl Albumin 2.9 gm/dl Globulin 3.7 gm/dl Albumin/Globulin Ratio 0.8 Assessment and Plan 81-year-old female with cellulitis of the right hand and forearm probably from cat scratch, with pasteurella as well as staph and strep being possibilities as pathogenic given her antibiotic allergies, She appears to be improving, continue present Rx pending final culture results. Will follow.
[2017-01-11 19:19] VITALS: PULSE 84; O2SAT 92
[2017-01-11] MEDS: DICLOFENAC SOD 1% GEL 100 GM TUBE EXT SCH (20:32)
[2017-01-12 00:11] VITALS: BP 131/64; PULSE 63; TEMP 36.6; O2SAT 94
[2017-01-12] MEDS: PIPERACILL/TAZOBAC IV 3.375 GM in DEXTROSE 5% 100ML IV SCH ×3 (00:28→16:09)
[2017-01-12] MEDS: TRAMADOL HCL 50 MG TAB PO PRN ×2 (03:08→16:15)
[2017-01-12 06:05] VITALS: BP 138/58; PULSE 62; TEMP 36.9; O2SAT 93
[2017-01-12] MEDS: HEPARIN SOD 5000 UNIT/0.5 ML CARP SQ SCH ×3 (06:11→20:01)
[2017-01-12 06:25] LABS: HEMATOCRIT 38.6 % (37-47); MEAN CORPUSCULAR HEMOGLOBIN 26.4 pg (25-34); MEAN PLATELET VOLUME 9.6 fL (7.4-10.4); PLATELET COUNT 289 K/uL (130-400); RED BLOOD COUNT 4.24 M/uL (4.2-5.4); WHITE BLOOD COUNT 5.98 K/uL (4.8-10.8)
[2017-01-12 07:01] LABS: C-REACTIVE PROTEIN 7.9 mg/dl (0-0.29); CREATININE 0.68 mg/dl (0.60-1.20)
[2017-01-12] MEDS: BUDESONIDE 0.5 MG/2 ML VIAL (PULMICORT) INH SCH ×2 (07:01→19:11)
[2017-01-12 07:02] VITALS: PULSE 62; O2SAT 93
[2017-01-12] MEDS: DOCUSATE SODIUM 100 MG CAP PO SCH ×2 (07:45→19:50)
[2017-01-12] MEDS: DILTIAZEM HCL 240 MG CAPCR PO SCH (07:46)
[2017-01-12] MEDS: POLYETHYLENE (MIRALAX) 17 GM PACK PO SCH (07:46)
[2017-01-12] MEDS: CHOLECALCIFEROL 1000 INTER.UNIT TAB PO SCH (07:46)
[2017-01-12] MEDS: SERTRALINE HCL 50 MG TAB PO SCH (07:46)
[2017-01-12] MEDS: DOCUSATE SODIUM/SENNA 50/8.6MG TAB PO SCH (07:46)
[2017-01-12] MEDS: BACLOFEN 10 MG TAB PO SCH ×2 (07:46→19:50)
[2017-01-12] MEDS: PANTOprazole SOD 40 MG TAB PO SCH (07:46)
[2017-01-12] MEDS: METOPROLOL SUCC 50MG EXT REL TAB PO SCH (07:46)
[2017-01-12] MEDS: DICLOFENAC SOD 1% GEL 100 GM TUBE EXT SCH ×2 (07:46→19:49)
[2017-01-12] MEDS: ASPIRIN 81 MG ECTAB PO SCH (07:46)
[2017-01-12] MEDS: ACETAMINOPHEN 325 MG TAB PO PRN (07:51)
[2017-01-12] MEDS: INSULIN ASPART 100 UNITS/ML 3 ML PEN SC SCH ×4 (08:59→19:59)
--- NOTE | 2017-01-12 09:40 | Orthopedic Progress Note ---
Orthopedic Progress Note Date of Service Jan 12, 2017. Subjective Reports: feeling well (Pt feels her arm is improving) Objective Swelling persists right hand/wrist. Mobile without pain, no signs flexor tenosynovitis Date Time Temp Pulse Resp B/P (MAP) Pulse Ox O2 Delivery O2 Flow Rate FiO2 01/12/17 09:05 Room Air 01/12/17 07:02 62 16 93 Room Air 01/12/17 06:05 36.9 62 17 138/58 (84) 93 Room Air 01/12/17 00:11 36.6 63 18 131/64 (86) 94 Room Air 01/12/17 00:00 Room Air 01/11/17 19:19 84 16 92 Room Air 01/11/17 16:00 Room Air 01/11/17 15:30 36.9 61 22 123/68 (86) 91 Room Air Laboratory Results 24 Hours: Test 01/12/17 05:43 Hematocrit 38.6 % Hemoglobin 11.2 g/dL Assessment & Plan Assessment: 81 yo female with cellulitis of the right hand and forearm, improving with IV abx Plan: -IV abx - zosyn -NWB RUE -Strict elevation -Ice therapy -Ortho to sign off unless symptoms worsen
[2017-01-12] MEDS: HYDROCODONE/ACETAMOPHEN 5/325MG TAB PO PRN ×2 (11:39→19:48)
--- NOTE | 2017-01-12 12:57 | Orthopedic Progress Note ---
Orthopedic Progress Note Date of Service Jan 12, 2017. Subjective Reports: feeling well, Denies: chest pain, SOB, nausea / vomiting, light headedness Additional Notes: R arm pain markedly improved with decreased swelling. No fever or chills. Objective calves soft nontender, N/V intact, capillary refill less than 2 sec., A&O x3 Right arm/hand/wrist AROM/PROM WNL. DNVSI. Erythema and edema resolving. Resolving swelling R UE. No evidence of Kanavel's signs. Date Time Temp Pulse Resp B/P (MAP) Pulse Ox O2 Delivery O2 Flow Rate FiO2 01/12/17 09:05 Room Air 01/12/17 07:02 62 16 93 Room Air 01/12/17 06:05 36.9 62 17 138/58 (84) 93 Room Air 01/12/17 00:11 36.6 63 18 131/64 (86) 94 Room Air 01/12/17 00:00 Room Air 01/11/17 19:19 84 16 92 Room Air 01/11/17 16:00 Room Air 01/11/17 15:30 36.9 61 22 123/68 (86) 91 Room Air Laboratory Results 24 Hours: Test 01/12/17 05:43 Hematocrit 38.6 % Hemoglobin 11.2 g/dL Assessment & Plan Assessment: 81 yo female with cellulitis of the right hand and forearm, significant improvement with IV abx Plan: -IV abx - zosyn -NWB RUE -Strict elevation -Ice therapy -Ortho to sign off. -F/U with Dr Radford in office if recurrent symptoms
[2017-01-12 15:53] VITALS: BP 127/62; PULSE 64; TEMP 36.9; O2SAT 93
--- NOTE | 2017-01-12 16:06 | Progress Note ---
Internal Med Progress Note Date of Service: Jan 12, 2017. Provider Documentation: SUBJECTIVE: seen at bedside. no acute pain especially from the back. the right hand and arm has swelling decreased significantly compared to yesterday and patient is pleased to be able to flex fingers of right hand as more normal range of motion. OBJECTIVE: General Appearance: has back pain Head: normocephalic, atraumatic Eyes: normal inspection ENT: hearing grossly normal, pharynx normal Neck: supple, trachea midline Respiratory/Chest: normal breath sounds, no respiratory distress, no accessory muscle use, Zio monitor in place on chest Cardiovascular: regular rate, rhythm, no murmur Abdomen/GI: normal bowel sounds, non tender, soft Back: lower back pain with pain more of the right side that is chronic Extremities: no calf tenderness, no pedal edema, still warmth in upper right extremities but swelling from right knuckle to forearm has decreased significantly and skin is less hard Neurologic/Psych: alert, normal mood/affect, oriented x 3 ASSESSMENT & PLAN: RIGHT HAND CELLULITIS In setting of possible cat scratch vs. bite in setting of diabetes and chronic steroids Treated with IV Rocephin overnight in ER, sent home on Omnicef and Flagyl (did not take yet), returned for worsening cellulitis Tetanus status addressed by ER, last TDAP in 2010, per ER attending, given nature of injury and clean wound, no tetanus booster indicated Orthopedics following the patient, MRI of right upper extremity negative for osteomyelitis or abscess Blood culture on 01/09/17 no growth to date Continue IV Zosyn Back pain: lower back pain with pain more of the right side that is chronic, as per pain management Continue baclofen and tramadol, Add hydrocodone for acute excerebration if needed short term, Diclofenac gel. Imaging of back on MRI with multiple areas of problems but patient is neurologically at base line 1. Severe degenerative disc change throughout. 2. Significant left posterior disc herniation L4-L5 creating significant deformity of the left lateral thecal sac and severe narrowing of the left and to lesser extent right neuroforamina. 3. Significant multifocal narrowing of the spinal canal L3-L4. Small extruded disc fragment occupying the right lateral recess 4. Broad-based disc herniation L2-L3 with an extruded disc fragment occupying the left neuroforamina. 5. Broad-based disc herniation L1-L2 with an extruded disc fragment occupying the right lateral recess. 6. grade 1 anterolisthesis of L4 and L5 accentuating all findings at that level. SEVERE COPD Requiring nocturnal O2 and chronic steroids Continue prednisone 20 mg daily, home inhalers, nebs, Accolate Supplemental O2 per protocol PAROXYSMAL ATRIAL FIBRILLATION Rate is controlled, Continue Cardizem and metoprolol Not on anticoagulation - discontinued by PCP several months ago Currently on Zio monitor ordered by Dr. Chun DM TYPE 2 Hold metformin Novolog sliding scale HYPERTENSION BP is stable Continue home meds CKD STAGE III Creatinine is stable Monitor renal function PA DRUG MONITORING Database queried, no issues identified DVT PROPHYLAXIS heparin SQ CODE STATUS Full code Vital Signs: Date Time Temp Pulse Resp B/P (MAP) Pulse Ox O2 Delivery O2 Flow Rate FiO2 01/12/17 15:53 36.9 64 18 127/62 (83) 93 Room Air 01/12/17 09:05 Room Air 01/12/17 07:02 62 16 93 Room Air 01/12/17 06:05 36.9 62 17 138/58 (84) 93 Room Air 01/12/17 00:11 36.6 63 18 131/64 (86) 94 Room Air 01/12/17 00:00 Room Air 01/11/17 19:19 84 16 92 Room Air Lab Results: Results Past 24 Hours Test 01/11/17 18:05 01/11/17 21:10 01/12/17 05:43 01/12/17 07:22 Range/Units Bedside Glucose 163 109 92 70-90 mg/dl White Blood Count 5.98 4.8-10.8 K/uL Red Blood Count 4.24 4.2-5.4 M/uL Hemoglobin 11.2 12.0-16.0 g/dL Hematocrit 38.6 37-47 % Mean Corpuscular Volume 91.0 80-100 fL Mean Corpuscular Hemoglobin 26.4 25-34 pg Mean Corpuscular Hemoglobin Concent 29.0 32-36 g/dl RDW Standard Deviation 49.4 36.4-46.3 fL RDW Coefficient of Variation 14.7 11.5-14.5 % Platelet Count 289 130-400 K/uL Mean Platelet Volume 9.6 7.4-10.4 fL Erythrocyte Sedimentation Rate 42 0-21 mm/hr Creatinine 0.68 0.60-1.20 mg/dl Est Creatinine Clear Calc Drug Dose 58.0 ml/min Estimated GFR () 96.4 Estimated GFR (Non- 83.2 C-Reactive Protein 7.90 0-0.29 mg/dl Test 01/12/17 11:13 Range/Units Bedside Glucose 179 70-90 mg/dl
[2017-01-12 19:52] VITALS: PULSE 61; O2SAT 95
[2017-01-12 23:07] VITALS: BP 156/75; PULSE 63; TEMP 36.5; O2SAT 93
[2017-01-13] VITALS: O2SAT 95
[2017-01-13] MEDS: PIPERACILL/TAZOBAC IV 3.375 GM in DEXTROSE 5% 100ML IV SCH ×3 (00:56→16:49)
[2017-01-13] MEDS: HYDROCODONE/ACETAMOPHEN 5/325MG TAB PO PRN ×3 (01:46→19:40)
[2017-01-13] MEDS: HEPARIN SOD 5000 UNIT/0.5 ML CARP SQ SCH ×3 (05:56→20:20)
[2017-01-13 07:12] VITALS: PULSE 67; O2SAT 94
[2017-01-13] MEDS: BUDESONIDE 0.5 MG/2 ML VIAL (PULMICORT) INH SCH ×2 (07:12→18:49)
[2017-01-13 07:25] VITALS: BP 135/59; PULSE 66; TEMP 36.6; O2SAT 93
[2017-01-13] MEDS: CHOLECALCIFEROL 1000 INTER.UNIT TAB PO SCH (07:56)
[2017-01-13] MEDS: BACLOFEN 10 MG TAB PO SCH ×2 (07:56→19:41)
[2017-01-13] MEDS: ASPIRIN 81 MG ECTAB PO SCH (07:56)
[2017-01-13] MEDS: DOCUSATE SODIUM/SENNA 50/8.6MG TAB PO SCH (07:56)
[2017-01-13] MEDS: DILTIAZEM HCL 240 MG CAPCR PO SCH (07:56)
[2017-01-13] MEDS: SERTRALINE HCL 50 MG TAB PO SCH (07:56)
[2017-01-13] MEDS: DOCUSATE SODIUM 100 MG CAP PO SCH ×2 (07:57→19:41)
[2017-01-13] MEDS: PANTOprazole SOD 40 MG TAB PO SCH (07:57)
[2017-01-13] MEDS: METOPROLOL SUCC 50MG EXT REL TAB PO SCH (07:57)
[2017-01-13] MEDS: POLYETHYLENE (MIRALAX) 17 GM PACK PO SCH (07:57)
[2017-01-13] MEDS: TRAMADOL HCL 50 MG TAB PO PRN ×2 (08:00→16:49)
[2017-01-13] MEDS: DICLOFENAC SOD 1% GEL 100 GM TUBE EXT SCH ×2 (08:01→19:40)
[2017-01-13] MEDS: INSULIN ASPART 100 UNITS/ML 3 ML PEN SC SCH ×4 (08:49→20:12)
[2017-01-13 15:39] VITALS: BP 134/69; PULSE 65; TEMP 36.5; O2SAT 93
--- NOTE | 2017-01-13 17:04 | Progress Note ---
Internal Med Progress Note Date of Service: Jan 13, 2017. Provider Documentation: SUBJECTIVE: seen at bedside. no acute pain especially from the back. the right hand and arm is now almost normal in size and skin turgor compared to unaffected left arm. OBJECTIVE: General Appearance: has back pain Head: normocephalic, atraumatic Eyes: normal inspection ENT: hearing grossly normal, pharynx normal Neck: supple, trachea midline Respiratory/Chest: normal breath sounds, no respiratory distress, no accessory muscle use, Zio monitor in place on chest Cardiovascular: regular rate, rhythm, no murmur Abdomen/GI: normal bowel sounds, non tender, soft Back: lower back pain with pain more of the right side that is chronic Extremities: no calf tenderness, no pedal edema, still warmth in upper right extremities but swelling from right knuckle to forearm has decreased significantly and skin is less hard Neurologic/Psych: alert, normal mood/affect, oriented x 3 ASSESSMENT & PLAN: RIGHT HAND CELLULITIS In setting of possible cat scratch vs. bite in setting of diabetes and chronic steroids Treated with IV Rocephin overnight in ER, sent home on Omnicef and Flagyl (did not take yet), returned for worsening cellulitis Tetanus status addressed by ER, last TDAP in 2010, per ER attending, given nature of injury and clean wound, no tetanus booster indicated Orthopedics following the patient, MRI of right upper extremity negative for osteomyelitis or abscess Blood culture on 01/09/17 no growth to date Continue IV Zosyn from 01/09/17 Awaiting ID recommendations for transition to oral antibiotic therapy Back pain: lower back pain with pain more of the right side that is chronic, as per pain management Continue baclofen and tramadol, Add hydrocodone for acute excerebration if needed short term, Diclofenac gel. Imaging of back on MRI with multiple areas of problems but patient is neurologically at base line 1. Severe degenerative disc change throughout. 2. Significant left posterior disc herniation L4-L5 creating significant deformity of the left lateral thecal sac and severe narrowing of the left and to lesser extent right neuroforamina. 3. Significant multifocal narrowing of the spinal canal L3-L4. Small extruded disc fragment occupying the right lateral recess 4. Broad-based disc herniation L2-L3 with an extruded disc fragment occupying the left neuroforamina. 5. Broad-based disc herniation L1-L2 with an extruded disc fragment occupying the right lateral recess. 6. grade 1 anterolisthesis of L4 and L5 accentuating all findings at that level. SEVERE COPD Requiring nocturnal O2 and chronic steroids Continue prednisone 20 mg daily, home inhalers, nebs, Accolate Supplemental O2 per protocol PAROXYSMAL ATRIAL FIBRILLATION Rate is controlled, Continue Cardizem and metoprolol Not on anticoagulation - discontinued by PCP several months ago Currently on Zio monitor ordered by Dr. Chun DM TYPE 2 Hold metformin Novolog sliding scale HYPERTENSION BP is stable Continue home meds CKD STAGE III Creatinine is stable Monitor renal function PA DRUG MONITORING Database queried, no issues identified DVT PROPHYLAXIS heparin SQ CODE STATUS Full code Disposition: Awaiting ID recommendations for transition to oral antibiotic therapy before patient can be discharged for cellulitis in context of negative blood cultures Vital Signs: Date Time Temp Pulse Resp B/P (MAP) Pulse Ox O2 Delivery O2 Flow Rate FiO2 01/13/17 15:39 36.5 65 16 134/69 (90) 93 Room Air 01/13/17 15:28 Room Air 01/13/17 08:30 Room Air 01/13/17 07:25 36.6 66 18 135/59 (84) 93 01/13/17 07:12 67 16 94 Room Air 01/13/17 00:00 95 Room Air 01/12/17 23:07 36.5 63 18 156/75 (102) 93 Room Air 01/12/17 20:00 Room Air 01/12/17 19:52 61 16 95 Room Air 01/12/17 18:30 Room Air Lab Results: Results Past 24 Hours Test 01/12/17 17:11 01/12/17 19:58 01/13/17 07:27 01/13/17 11:26 Range/Units Bedside Glucose 157 91 109 174 70-90 mg/dl Test 01/13/17 16:44 Range/Units Bedside Glucose 190 70-90 mg/dl
[2017-01-13 18:52] VITALS: PULSE 69; O2SAT 96
[2017-01-13 22:49] VITALS: BP 133/67; PULSE 61; TEMP 36.8; O2SAT 92
[2017-01-14] MEDS: PIPERACILL/TAZOBAC IV 3.375 GM in DEXTROSE 5% 100ML IV SCH ×3 (00:18→12:41)
[2017-01-14] MEDS: DICLOFENAC SOD 1% GEL 100 GM TUBE EXT SCH ×2 (00:18→07:58)
[2017-01-14] MEDS: TRAMADOL HCL 50 MG TAB PO PRN ×3 (00:45→14:49)
[2017-01-14] MEDS: HYDROCODONE/ACETAMOPHEN 5/325MG TAB PO PRN (03:35)
[2017-01-14] MEDS: HEPARIN SOD 5000 UNIT/0.5 ML CARP SQ SCH ×2 (05:57→12:41)
[2017-01-14 06:24] LABS: BASO % 0.8 %; BASO ABS # 0.06 K/uL (0-0.2); COMPLETE YES; EOS % 0.8 %; HEMATOCRIT 36.2 % (37-47); LYMPH % 22.4 %; LYMPH ABS # 1.71 K/uL (1.2-3.4); MEAN CELL VOLUME 90.3 fL (80-100); MEAN CORPUSCULAR HEMOGLOBIN 27.2 pg (25-34); MEAN CORPUSCULAR HGB CONC 30.1 g/dl (32-36); MEAN PLATELET VOLUME 9.3 fL (7.4-10.4); MONO % 12.9 %; NEUT % 62.1 %; PLATELET COUNT 272 K/uL (130-400); RED BLOOD COUNT 4.01 M/uL (4.2-5.4); WHITE BLOOD COUNT 7.62 K/uL (4.8-10.8)
[2017-01-14 06:52] LABS: CREATININE 0.7 mg/dl (0.60-1.20)
[2017-01-14] MEDS: BUDESONIDE 0.5 MG/2 ML VIAL (PULMICORT) INH SCH (06:59)
[2017-01-14 07:05] VITALS: PULSE 60; O2SAT 93
[2017-01-14 07:46] VITALS: BP 146/67; PULSE 68; TEMP 36.4; O2SAT 90
[2017-01-14] MEDS: METOPROLOL SUCC 50MG EXT REL TAB PO SCH (07:56)
[2017-01-14] MEDS: DILTIAZEM HCL 240 MG CAPCR PO SCH (07:56)
[2017-01-14] MEDS: DOCUSATE SODIUM 100 MG CAP PO SCH (07:56)
[2017-01-14] MEDS: ASPIRIN 81 MG ECTAB PO SCH (07:56)
[2017-01-14] MEDS: BACLOFEN 10 MG TAB PO SCH (07:56)
[2017-01-14] MEDS: PANTOprazole SOD 40 MG TAB PO SCH (07:57)
[2017-01-14] MEDS: DOCUSATE SODIUM/SENNA 50/8.6MG TAB PO SCH (07:57)
[2017-01-14] MEDS: POLYETHYLENE (MIRALAX) 17 GM PACK PO SCH (07:57)
[2017-01-14] MEDS: SERTRALINE HCL 50 MG TAB PO SCH (07:57)
[2017-01-14] MEDS: CHOLECALCIFEROL 1000 INTER.UNIT TAB PO SCH (07:58)
[2017-01-14] MEDS: INSULIN ASPART 100 UNITS/ML 3 ML PEN SC SCH ×2 (10:49→12:40)
[2017-01-14 12:21] VITALS: BP 146/67; PULSE 68; TEMP 36.4; O2SAT 90
--- NOTE | 2017-01-14 13:53 | Progress Note ---
Internal Med Progress Note Date of Service: Jan 14, 2017. Provider Documentation: SUBJECTIVE: seen at bedside. no back pain. swelling and erythema of right upper extremity resolved. patient lost IV access today OBJECTIVE: General Appearance: has back pain Head: normocephalic, atraumatic Eyes: normal inspection ENT: hearing grossly normal, pharynx normal Neck: supple, trachea midline Respiratory/Chest: normal breath sounds, no respiratory distress, no accessory muscle use, Zio monitor in place on chest Cardiovascular: regular rate, rhythm, no murmur Abdomen/GI: normal bowel sounds, non tender, soft Back: lower back pain with pain more of the right side that is chronic Extremities: no calf tenderness, no pedal edema, edema resolved of right upper extremity, some warmth of right upper extremity but no obvious sign of erythema and patient has no limitations with flexing/extending of fingers or abduction/ adduction of fingers Neurologic/Psych: alert, normal mood/affect, oriented x 3 ASSESSMENT & PLAN: RIGHT HAND CELLULITIS In setting of possible cat scratch vs. bite in setting of diabetes and chronic steroids Treated with IV Rocephin overnight in ER, sent home on Omnicef and Flagyl (did not take yet), returned for worsening cellulitis Tetanus status addressed by ER, last TDAP in 2010, per ER attending, given nature of injury and clean wound, no tetanus booster indicated Orthopedics following the patient, MRI of right upper extremity negative for osteomyelitis or abscess Blood culture on 01/09/17 no growth to date IV Zosyn from 01/09/17 to 01/13/17 with almost complete resolution of right upper extremity swelling and erythema, IV access lost on 01/14/17 Awaiting ID recommendations for transition to oral antibiotic therapy Back pain: lower back pain with pain more of the right side that is chronic, as per pain management Continue baclofen and tramadol, Add hydrocodone for acute excerebration if needed short term, Diclofenac gel. Imaging of back on MRI with multiple areas of problems but patient is neurologically at base line 1. Severe degenerative disc change throughout. 2. Significant left posterior disc herniation L4-L5 creating significant deformity of the left lateral thecal sac and severe narrowing of the left and to lesser extent right neuroforamina. 3. Significant multifocal narrowing of the spinal canal L3-L4. Small extruded disc fragment occupying the right lateral recess 4. Broad-based disc herniation L2-L3 with an extruded disc fragment occupying the left neuroforamina. 5. Broad-based disc herniation L1-L2 with an extruded disc fragment occupying the right lateral recess. 6. grade 1 anterolisthesis of L4 and L5 accentuating all findings at that level. SEVERE COPD Requiring nocturnal O2 and chronic steroids Continue prednisone 20 mg daily, home inhalers, nebs, Accolate Supplemental O2 per protocol PAROXYSMAL ATRIAL FIBRILLATION Rate is controlled, Continue Cardizem and metoprolol Not on anticoagulation - discontinued by PCP several months ago Currently on Zio monitor ordered by Dr. Chun DM TYPE 2 Hold metformin Novolog sliding scale HYPERTENSION BP is stable Continue home meds CKD STAGE III Creatinine is stable Monitor renal function PA DRUG MONITORING Database queried, no issues identified DVT PROPHYLAXIS heparin SQ while inpatient CODE STATUS Full code Disposition: Awaiting ID recommendations for transition to oral antibiotic therapy before patient can be discharged for cellulitis in context of negative blood cultures When ready for discharge patient has follow up appointment made to see her primary doctor Mamadou Torre MD (Family Practice) [facility] 01/18/17 at 12:15 pm Vital Signs: Date Time Temp Pulse Resp B/P (MAP) Pulse Ox O2 Delivery O2 Flow Rate FiO2 01/14/17 12:21 36.4 68 18 90 Room Air 01/14/17 10:49 Room Air 01/14/17 07:46 36.4 68 18 146/67 (93) 90 Room Air 01/14/17 07:05 60 16 93 Room Air 01/14/17 00:00 Room Air 01/13/17 22:49 36.8 61 16 133/67 (89) 92 Room Air 01/13/17 20:00 Room Air 01/13/17 18:52 69 16 96 Room Air 01/13/17 15:39 36.5 65 16 134/69 (90) 93 Room Air 01/13/17 15:28 Room Air Lab Results: Results Past 24 Hours Test 01/13/17 16:44 01/13/17 20:07 01/14/17 05:55 01/14/17 07:54 Range/Units Bedside Glucose 190 109 104 70-90 mg/dl White Blood Count 7.62 4.8-10.8 K/uL Red Blood Count 4.01 4.2-5.4 M/uL Hemoglobin 10.9 12.0-16.0 g/dL Hematocrit 36.2 37-47 % Mean Corpuscular Volume 90.3 80-100 fL Mean Corpuscular Hemoglobin 27.2 25-34 pg Mean Corpuscular Hemoglobin Concent 30.1 32-36 g/dl Platelet Count 272 130-400 K/uL Mean Platelet Volume 9.3 7.4-10.4 fL Neutrophils (%) (Auto) 62.1 % Lymphocytes (%) (Auto) 22.4 % Monocytes (%) (Auto) 12.9 % Eosinophils (%) (Auto) 0.8 % Basophils (%) (Auto) 0.8 % Neutrophils # (Auto) 4.73 1.4-6.5 K/uL Lymphocytes # (Auto) 1.71 1.2-3.4 K/uL Monocytes # (Auto) 0.98 0.11-0.59 K/uL Eosinophils # (Auto) 0.06 0-0.5 K/uL Basophils # (Auto) 0.06 0-0.2 K/uL RDW Standard Deviation 47.9 36.4-46.3 fL RDW Coefficient of Variation 14.4 11.5-14.5 % Immature Granulocyte % (Auto) 1.0 % Immature Granulocyte # (Auto) 0.08 0.00-0.02 K/uL Creatinine 0.70 0.60-1.20 mg/dl Est Creatinine Clear Calc Drug Dose 56.3 ml/min Estimated GFR () 95.5 Estimated GFR (Non- 82.4 Test 01/14/17 11:44 Range/Units Bedside Glucose 257 70-90 mg/dl
[2017-01-14] MEDS ORDERED: SULF800T23 PO (14:20)
[2017-01-14] MEDS ORDERED: CEFD1CAP14 PO (14:20)
--- NOTE | 2017-01-14 14:27 | Discharge Instructions ---
Discharge Instructions Date of Service Jan 14, 2017. Admission Reason for Admission: Cellulitis Discharge Discharge Diagnosis / Problem: right hand/arm cellulitus with negative blood cultures, back pain, DM Discharge Goals Goal(s): Decrease discomfort, Improve function, Improve disease control Activity Recommendations Activity Limitations: resume your previous activity Driving or Machine Use: no limitations . Instructions / Follow-Up Instructions / Follow-Up Disposition: I have seen the patient with Dr. Al, infectious disease doctor. He recommends patient to be transitioned to oral bactrim DS BID for 10 days and cefdinir 300 mg BID for 10 days based on her history of drug allergies for further treatment of cellulitis When ready for discharge patient has follow up appointment made to see her primary doctor Mamadou Torre MD (Family Practice) [facility] 01/18/17 at 12:15 pm Current Hospital Diet Patient's current hospital diet: Diabetes Type 2 Diet, AHA Diet (Heart Healthy) Discharge Diet Recommended Diet: Diabetes Type 2 Diet Pending Studies Studies pending at discharge: no Laboratory Results 01/14/17 05:55 Red Blood Count 4.01, Mean Corpuscular Volume 90.3, Mean Corpuscular Hemoglobin 27.2, Mean Corpuscular Hemoglobin Concent 30.1, Mean Platelet Volume 9.3, Neutrophils (%) (Auto) 62.1, Lymphocytes (%) (Auto) 22.4, Monocytes (%) (Auto) 12.9, Eosinophils (%) (Auto) 0.8, Basophils (%) (Auto) 0.8, Neutrophils # (Auto ) 4.73, Lymphocytes # (Auto) 1.71, Monocytes # (Auto) 0.98, Eosinophils # (Auto ) 0.06, Basophils # (Auto) 0.06 01/11/17 05:31 01/14/17 05:55 Test 01/09/17 14:06 01/10/17 05:44 01/11/17 05:31 01/12/17 05:43 Prothrombin Time 10.0 SECONDS (9.0-12.0) Prothromb Time International Ratio 0.9 (0.9-1.1) Activated Partial Thromboplast Time 26.7 SECONDS (21.0-31.0) Partial Thromboplastin Ratio 1.0 Estimated Average Glucose 131 mg/dl Hemoglobin A1c 6.2 % (4.5-5.6) Anion Gap 1.0 mmol/L (3-11) BUN/Creatinine Ratio 14.1 (10-20) Calcium Level 9.0 mg/dl (8.5-10.1) Total Bilirubin 0.9 mg/dl (0.2-1) Aspartate Amino Transf (AST/SGOT) 36 U/L (15-37) Alanine Aminotransferase (ALT/SGPT) 58 U/L (12-78) Alkaline Phosphatase 74 U/L (45-117) Total Protein 6.6 gm/dl (6.4-8.2) Albumin 2.9 gm/dl (3.4-5.0) Globulin 3.7 gm/dl (2.5-4.0) Albumin/Globulin Ratio 0.8 (0.9-2) Erythrocyte Sedimentation Rate 42 mm/hr (0-21) C-Reactive Protein 7.90 mg/dl (0-0.29) Test 01/14/17 05:55 01/14/17 11:44 White Blood Count 7.62 K/uL (4.8-10.8) Red Blood Count 4.01 M/uL (4.2-5.4) Hemoglobin 10.9 g/dL (12.0-16.0) Hematocrit 36.2 % (37-47) Mean Corpuscular Volume 90.3 fL (80-100) Mean Corpuscular Hemoglobin 27.2 pg (25-34) Mean Corpuscular Hemoglobin Concent 30.1 g/dl (32-36) Platelet Count 272 K/uL (130-400) Mean Platelet Volume 9.3 fL (7.4-10.4) Neutrophils (%) (Auto) 62.1 % Lymphocytes (%) (Auto) 22.4 % Monocytes (%) (Auto) 12.9 % Eosinophils (%) (Auto) 0.8 % Basophils (%) (Auto) 0.8 % Neutrophils # (Auto) 4.73 K/uL (1.4-6.5) Lymphocytes # (Auto) 1.71 K/uL (1.2-3.4) Monocytes # (Auto) 0.98 K/uL (0.11-0.59) Eosinophils # (Auto) 0.06 K/uL (0-0.5) Basophils # (Auto) 0.06 K/uL (0-0.2) RDW Standard Deviation 47.9 fL (36.4-46.3) RDW Coefficient of Variation 14.4 % (11.5-14.5) Immature Granulocyte % (Auto) 1.0 % Immature Granulocyte # (Auto) 0.08 K/uL (0.00-0.02) Est Creatinine Clear Calc Drug Dose 56.3 ml/min Estimated GFR () 95.5 Estimated GFR (Non- 82.4 Bedside Glucose 257 mg/dl (70-90) Date/Time Source Procedure Growth Status 01/09/17 09:40 Blood Blood Culture - Preliminary NO GROWTH TO DATE. Resulted Hemoglobin A1c Test 01/10/17 05:44 Range/Units Estimated Average Glucose 131 mg/dl Hemoglobin A1c 6.2 H 4.5-5.6 % Medical Emergencies . Who to Call and When: Medical Emergencies: If at any time you feel your situation is an emergency, please call 911 immediately. . Non-Emergent Contact Non-Emergency issues call your: Primary Care Provider . . "Provider Documentation" section prepared by Oscar Braun. . VTE Core Measure Inpt VTE Proph given/why not?: Unfractionated heparin SQ
--- NOTE | 2017-01-14 14:31 | Discharge Summary ---
Discharge Summary Date of Service Jan 14, 2017. Discharge Summary Admission Date: Jan 09, 2017 at 11:26 Discharge Date: Jan 14, 2017 Discharge Disposition: Home Principal Diagnosis: right hand/arm cellulitis with negative blood cultures, possible cat bite, low back pain, DM Medication Reconciliation New Medications: Sulfa/Trimethoprim (Bactrim Ds 800MG/160MG) Tab 1 TAB PO BID for 10 Days, #20 TAB Continued Medications: Acetaminophen (Acetaminophen) 500 Mg Tab 2 TAB PO Q6 PRN for Pain or Fever Albuterol Hfa (Ventolin Hfa) 200 Puffs/77496 Mcg Aers 2 PUFFS INH Q4H PRN for SOB/Wheezing, #1 INHALER Aspirin (Aspirin Ec) 81 Mg Tab 81 MG PO DAILY Baclofen (Lioresal) 10 Mg Tab 10 MG PO AMPM, TAB Budesonide (Pulmicort Respules 0.5MG/2ML) 0.5 Mg/2 Ml Nebu 2 ML INH BID Cefdinir (Omnicef) 300 Mg Cap 300 MG PO Q12H for 10 Days, #20 CAP (This prescription has been renewed) Cholecalciferol (Vitamin D3) 2,000 Unit Cap 2000 INTER.UNIT PO QAM Diltiazem Hcl Coated Beads (Cardizem Cd) 240 Mg Cap 240 MG PO QAM, CAP Docusate Sodium (Colace) 100 Mg Cap 100 MG PO BID, CAP Furosemide (Lasix) 20 Mg Tab 10 MG PO DAILY PRN for edema, TAB Home O2 Therapy (Oxygen) Gas 2 LITERS NA HS Ipratropium-Albuterol (Duoneb) 3 Ml Nebu 1 TREATMENT INH Q4 PRN for SOB/Wheezing USE IN PLACE OF RESCUE INHALER patient prefers to use tid routinely Metformin Hcl (Glucophage) 1,000 Mg Tab 1000 MG PO BID Metoprolol Succinate (Metoprolol Succinate ER) 50 Mg Tabcr 50 MG PO QAM, #30 Omeprazole (Prilosec) 20 Mg Capcr 20 MG PO QAM TAKE THIS MEDICATION 30 MINUTES BEFORE FIRST MEAL OF THE DAY. Ondansetron Hcl (Zofran) 4 Mg Tab 4 MG PO Q6 PRN for Nausea Polyethylene Glycol 3350 (Miralax) 1 Pow Pow 17 GM PO DAILYBL Prednisone (Deltasone) 20 Mg Tab 20 MG PO UD PRN for COPD rescue kit TAKE 40 MG DAILY FOR 5 DAYS THEN START TAKING 20 MG DAILY FOR 5 DAYS. Prednisone (Prednisone) 20 Mg Tab 20 MG PO QAM, TAB Senna/Docusate Sod (Senokot S) 1 Tab Tab 1 TAB PO every afternoon Sertraline HCl (Sertraline HCl) 25 Mg Tab 25 MG PO QAM, #30 Tramadol HCl (Tramadol HCl) 50 Mg Tab 50 MG PO Q6 PRN for back pain Zafirlukast (Accolate) 20 Mg Tab 20 MG PO BID ONE HOUR BEFORE OR TWO HOURS AFTER A MEAL. Discontinued Medications: Doxycycline Hyclate (Doxycycline Hyclate) 100 Mg Cap 100 MG PO BID PRN for COPD rescue kit Metronidazole (Flagyl) 500 Mg Tab 1 TAB PO TID for 10 Days, #30 TAB Nystatin (Nystatin Suspension) 1 Ml Susp 5 ML PO UD PRN for THRUSH SWISH AND SWALLOW Admission Information HPI (per Admitting provider): This is a 81 y/o female with DM type 2, asthma, COPD on chronic steroids and chronic nocturnal O2, hx bronchiectasis, paroxysmal atrial fibrillation not on Coumadin, HTN, CKD stage III, and other problems listed below who presents to the ED with right hand infection. Patient developed erythema and swelling of the dorsum of the right hand yesterday. Her daughter noticed a punctate lesion seeping clear fluid between the 3rd and 4th MCP joints. The patient has a kitten , so there was suspicion for a cat scratch, but patient does not specifically recall being scratched or bitten. The cat's vaccines are up to date per ER provider. Pt was seen in ER overnight, WBC elevated to 15.5K, and was diagnosed with cellulitis. X-ray showed degenerative change and soft tissue swelling. She was treated with IV Rocephin and sent home with Omnicef and Flagyl which she did not take yet. This morning patient felt nauseous which resolved and had increased pain and spreading of erythema and swelling to midway up her forearm. She reports difficulty with ROM of right wrist and fingers. Daughter states pt felt warm to the touch this morning and her temp was 99.5 F at home. Pain is controlled after IV morphine given in ER. Has chronic MCKAY unchanged from baseline. Received a neb in ER after O2 sat was 88% on RA. Now breathing well, saturating high 90's on 2L NC. Denies chills, chest pain, palpitations, dizziness, cough, dyspnea at rest, vomiting, diarrhea, dysuria, frequency. Pt finished a course of Keflex 1 week ago for skin tears on her left arm and right leg which are healed. No recent hospitalization. Currently on Zio monitor ordered by manager of enterprise Dr. Chun. Physical Exam (per Admitting): General Appearance: WD/WN, no apparent distress, + pertinent finding (alert elderly female, sister and daughter at bedside) Head: normocephalic, atraumatic Eyes: normal inspection ENT: hearing grossly normal, pharynx normal Neck: supple, trachea midline Respiratory/Chest: normal breath sounds, no respiratory distress, no accessory muscle use, + pertinent finding (slight expiratory wheezing. saturating well on 2 liters NC. Zio monitor in place on chest. ) Cardiovascular: regular rate, rhythm, no murmur Abdomen/GI: normal bowel sounds, non tender, soft Extremities/Musculoskelatal: no calf tenderness, no pedal edema, + pertinent finding (right 3rd, 4th, and 5th MCP, 3rd and 4th PIP joints tender. wrist is nontender. limited ROM of right wrist and fingers. right elbow ROM WNL. ) Neurologic/Psych: alert, normal mood/affect, oriented x 3 Skin: + pertinent finding (erythema, warmth, swelling dorsum of right hand with extension assisted up the anterior forearm. tiny punctate lesion between 3rd and 4th MCP joints. has scabbed prior skin tears on left arm and right leg.) Lymphatic: + pertinent finding (no right axillary lymphadenopathy. no cervical lymphadenopathy. ) Hospital Course RIGHT HAND CELLULITIS In setting of possible cat scratch vs. bite in setting of diabetes and chronic steroids Treated with IV Rocephin overnight in ER, sent home on Omnicef and Flagyl (did not take yet), returned for worsening cellulitis Tetanus status addressed by ER, last TDAP in 2010, per ER attending, given nature of injury and clean wound, no tetanus booster indicated Orthopedics following the patient, MRI of right upper extremity negative for osteomyelitis or abscess Blood culture on 01/09/17 no growth to date IV Zosyn from 01/09/17 to 01/13/17 with almost complete resolution of right upper extremity swelling and erythema, IV access lost on 01/14/17 Awaiting ID recommendations for transition to oral antibiotic therapy Back pain: lower back pain with pain more of the right side that is chronic, as per pain management Continue baclofen and tramadol, Add hydrocodone for acute excerebration if needed short term, Diclofenac gel. Imaging of back on MRI with multiple areas of problems but patient is neurologically at base line 1. Severe degenerative disc change throughout. 2. Significant left posterior disc herniation L4-L5 creating significant deformity of the left lateral thecal sac and severe narrowing of the left and to lesser extent right neuroforamina. 3. Significant multifocal narrowing of the spinal canal L3-L4. Small extruded disc fragment occupying the right lateral recess 4. Broad-based disc herniation L2-L3 with an extruded disc fragment occupying the left neuroforamina. 5. Broad-based disc herniation L1-L2 with an extruded disc fragment occupying the right lateral recess. 6. grade 1 anterolisthesis of L4 and L5 accentuating all findings at that level. SEVERE COPD Requiring nocturnal O2 and chronic steroids Continue prednisone 20 mg daily, home inhalers, nebs, Accolate Supplemental O2 per protocol PAROXYSMAL ATRIAL FIBRILLATION Rate is controlled, Continue Cardizem and metoprolol Not on anticoagulation - discontinued by PCP several months ago Currently on Zio monitor ordered by Dr. Chun DM TYPE 2 Hold metformin Novolog sliding scale HYPERTENSION BP is stable Continue home meds CKD STAGE III Creatinine is stable Monitor renal function PA DRUG MONITORING Database queried, no issues identified DVT PROPHYLAXIS heparin SQ while inpatient CODE STATUS Full code Disposition: I have seen the patient with Dr. Al, infectious disease doctor. He recommends patient to be transitioned to oral bactrim DS BID for 10 days and cefdinir 300 mg BID for 10 days based on her history of drug allergies for further treatment of cellulitis When ready for discharge patient has follow up appointment made to see her primary doctor Mamadou Torre MD (Family Practice) [facility] 01/18/17 at 12:15 pm Total time spent on discharge = This includes examination of the patient, discharge planning, medication reconciliation, and communication with other providers. Discharge Instructions Disposition: I have seen the patient with Dr. Al, infectious disease doctor. He recommends patient to be transitioned to oral bactrim DS BID for 10 days and cefdinir 300 mg BID for 10 days based on her history of drug allergies for further treatment of cellulitis When ready for discharge patient has follow up appointment made to see her primary doctor Mamadou Torre MD (Family Practice) [facility] 01/18/17 at 12:15 pm
--- NOTE | 2017-01-14 15:09 | Infectious Disease Progress Nt ---
Progress Note Date of Service Jan 14, 2017. Subjective Pt evaluation today including: conversation w/ patient, physical exam, chart review, lab review, review of studies, conversation w/ car sales consultant, review of inpatient medication list . Patient continues to improve. Pain has resolved. No fever.. Erythema is essentially gone. All Other Systems: Reviewed and Negative Medications Current Inpatient Medications Medications (Trade) Dose Ordered Sig/Toro Route Start Time Stop Time Status Last Admin Dose Admin Acetaminophen (Tylenol Tab) 650 mg Q4H PRN PO 01/09/17 11:30 02/08/17 11:29 01/12/17 07:51 650 MG Ondansetron HCl (Zofran Inj) 4 mg Q6H PRN IV 01/09/17 11:30 02/08/17 11:29 01/11/17 11:21 4 MG Insulin Aspart (novoLOG ASPART) SLIDING SCALE If C... ACHS SC 01/09/17 16:00 02/08/17 15:59 01/14/17 12:40 6 UNITS Glucose (Glucose 40% Gel) 15-30 GRAMS 15 GRAMS... UD PRN PO 01/09/17 11:30 02/08/17 11:29 Glucose (Glucose Chew Tab) 4-8 Tablets 4 Tabl... UD PRN PO 01/09/17 11:30 02/08/17 11:29 Dextrose (Dextrose 50% 50ML Syringe) 25-50ML OF 50% DW IV FOR... UD PRN IV 01/09/17 11:30 02/08/17 11:29 Glucagon (Glucagon Inj) 1 mg UD PRN SQ 01/09/17 11:30 02/08/17 11:29 Albuterol (Ventolin Hfa Inhaler) 2 puffs Q4H PRN INH 01/09/17 11:30 02/08/17 11:29 Aspirin (Ecotrin Tab) 81 mg DAILY PO 01/10/17 08:00 02/09/17 08:59 01/14/17 07:56 81 MG Baclofen (Lioresal Tab) 10 mg BID PO 01/09/17 20:00 02/08/17 20:59 01/14/17 07:56 10 MG Budesonide (Pulmicort Respules 0.5MG/ 2ML Neb Soln) 1 mg BIDR INH 01/09/17 20:00 02/08/17 19:59 01/14/17 06:59 1 MG Diltiazem HCl (Cardizem Cd Cap) 240 mg QAM PO 01/10/17 08:00 02/09/17 08:59 01/14/17 07:56 240 MG Docusate Sodium (coLACE CAP) 100 mg BID PO 01/09/17 20:00 02/08/17 20:59 01/14/17 07:56 100 MG Albuterol/ Ipratropium (Duoneb) 3 ml Q4 PRN INH 01/09/17 11:30 02/08/17 11:29 01/11/17 19:19 3 ML Metoprolol Succinate (Toprol Xl Tab) 50 mg QAM PO 01/10/17 08:00 02/09/17 08:59 01/14/17 07:56 50 MG Prednisone (PredniSONE TAB) 20 mg QAM PO 01/10/17 08:00 02/09/17 08:59 01/14/17 07:57 20 MG Senna/Docusate Sodium (Senokot S Tab) 1 tab DAILY PO 01/10/17 08:00 02/09/17 08:59 01/14/17 07:57 1 TAB Tramadol HCl (Ultram Tab) 50 mg Q6 PRN PO 01/09/17 11:30 02/08/17 11:29 01/14/17 14:49 50 MG Cholecalciferol (Vitamin D Tab) 2,000 inter.unit QAM PO 01/10/17 08:00 02/09/17 08:59 01/14/17 07:58 2,000 INTER.UNIT Polyethylene (Miralax Powder Packet) 17 gm DAILYBL PO 01/10/17 11:00 02/09/17 10:59 01/14/17 07:57 17 GM Sertraline HCl (Zoloft Tab) 25 mg QAM PO 01/10/17 08:00 02/09/17 08:59 01/14/17 07:57 25 MG Miscellaneous Information (Order Awaiting Action) 1 ea QS N/A 01/09/17 16:00 02/08/17 15:59 Heparin Sodium (Porcine) (Heparin Sq 5000 Unit/0.5ml) 5,000 unit Q8 SQ 01/09/17 22:00 02/08/17 21:59 01/14/17 05:57 5,000 UNIT Pantoprazole Sodium (Protonix Tab) 40 mg QAM PO 01/11/17 08:00 02/09/17 07:59 01/14/17 07:57 40 MG Gadobutrol (Gadavist) 6.5 mmol UD PRN IV 01/11/17 18:00 01/15/17 17:59 Diclofenac Sodium (Voltaren 1% Top Gel) 1 appln BID EXT 01/11/17 20:00 02/10/17 19:59 01/14/17 07:58 1 APPLN Acetaminophen/ Hydrocodone Bitart ([place] 5/325 Tab) 1 tab Q6 PRN PO 01/11/17 17:45 01/25/17 17:44 01/14/17 03:35 1 TAB Objective Vital Signs Date Time Temp Pulse Resp B/P (MAP) Pulse Ox O2 Delivery O2 Flow Rate FiO2 01/14/17 12:21 36.4 68 18 90 Room Air 01/14/17 10:49 Room Air 01/14/17 07:46 36.4 68 18 146/67 (93) 90 Room Air 01/14/17 07:05 60 16 93 Room Air 01/14/17 00:00 Room Air 01/13/17 22:49 36.8 61 16 133/67 (89) 92 Room Air 01/13/17 20:00 Room Air 01/13/17 18:52 69 16 96 Room Air 01/13/17 15:39 36.5 65 16 134/69 (90) 93 Room Air 01/13/17 15:28 Room Air Physical Exam General Appearance: WD/WN, no apparent distress Eyes: normal inspection, sclerae normal ENT: normal ENT inspection, pharynx normal Neck: supple, no adenopathy, trachea midline Respiratory/Chest: chest non-tender, normal breath sounds, no accessory muscle use Cardiovascular: regular rate, rhythm, no gallop, no murmur Abdomen: normal bowel sounds, non tender, soft, no organomegaly Extremities: non-tender, no calf tenderness Neurologic/Psychiatric: alert, oriented x 3 Skin: normal color, no rash, + pertinent finding (Erythema right arm is essentially gone) Lymphatic: no adenopathy Laboratory Results Last 24 Hours Test 01/13/17 16:44 01/13/17 20:07 01/14/17 05:55 01/14/17 07:54 Bedside Glucose 190 mg/dl 109 mg/dl 104 mg/dl White Blood Count 7.62 K/uL Red Blood Count 4.01 M/uL Hemoglobin 10.9 g/dL Hematocrit 36.2 % Mean Corpuscular Volume 90.3 fL Mean Corpuscular Hemoglobin 27.2 pg Mean Corpuscular Hemoglobin Concent 30.1 g/dl Platelet Count 272 K/uL Mean Platelet Volume 9.3 fL Neutrophils (%) (Auto) 62.1 % Lymphocytes (%) (Auto) 22.4 % Monocytes (%) (Auto) 12.9 % Eosinophils (%) (Auto) 0.8 % Basophils (%) (Auto) 0.8 % Neutrophils # (Auto) 4.73 K/uL Lymphocytes # (Auto) 1.71 K/uL Monocytes # (Auto) 0.98 K/uL Eosinophils # (Auto) 0.06 K/uL Basophils # (Auto) 0.06 K/uL RDW Standard Deviation 47.9 fL RDW Coefficient of Variation 14.4 % Immature Granulocyte % (Auto) 1.0 % Immature Granulocyte # (Auto) 0.08 K/uL Creatinine 0.70 mg/dl Est Creatinine Clear Calc Drug Dose 56.3 ml/min Estimated GFR () 95.5 Estimated GFR (Non- 82.4 Test 01/14/17 11:44 Bedside Glucose 257 mg/dl Assessment and Plan . 81-year-old female with cellulitis of the right hand and forearm probably from cat scratch, with pasteurella as well as staph and strep being possibilities as pathogenic. She has improved to the point where I think we can transition to oral antibiotics, recommend combination of Bactrim DS b.i.d. and Omnicef 300 milligrams b.i.d. for [address] Braun.
== END 2017-01-14 15:40 | disposition home health service (06) | DRG 603 ==
LOC: C.EDB 09:00 → C.4E 11:26 → ENRESERV 11:31
PROVIDERS: ADMIT Hospitalist; ATTEND Hospitalist
DX: L03.113 Cellulitis of right upper limb (principal); L03.115 Cellulitis of right lower limb; W55.03XA Scratched by cat, initial encounter; Z83.3 Family history of diabetes mellitus; Z82.49 Family history of ischemic heart disease and other diseases of the circulatory system; Z79.82 Long term (current) use of aspirin; E11.9 Type 2 diabetes mellitus without complications; J45.909 Unspecified asthma, uncomplicated; J44.9 Chronic obstructive pulmonary disease, unspecified; Z79.52 Long term (current) use of systemic steroids; Z99.81 Dependence on supplemental oxygen; I48.0 Paroxysmal atrial fibrillation; N18.3 Chronic kidney disease, stage 3 (moderate); I12.9 Hypertensive chronic kidney disease with stage 1 through stage 4 chronic kidney disease, or unspecified chronic kidney disease; E11.42 Type 2 diabetes mellitus with diabetic polyneuropathy; M48.06 Spinal stenosis, lumbar region; M79.1 Myalgia; S61.451A Open bite of right hand, initial encounter; W55.01XA Bitten by cat, initial encounter; I10 Essential (primary) hypertension; I48.91 Unspecified atrial fibrillation; K21.9 Gastro-esophageal reflux disease without esophagitis; Z90.710 Acquired absence of both cervix and uterus; Z90.49 Acquired absence of other specified parts of digestive tract; Z98.49 Cataract extraction status, unspecified eye; Z90.2 Acquired absence of lung [part of]; Z79.84 Long term (current) use of oral hypoglycemic drugs; Z79.899 Other long term (current) drug therapy; Z88.1 Allergy status to other antibiotic agents; Z88.2 Allergy status to sulfonamides; Z88.8 Allergy status to other drugs, medicaments and biological substances

== ENCOUNTER 2017-04-21 07:39 | Emergency (ER) | payer BC, OTHER ==
[~2017-04-21 07:39] MED LIST changes: -ACET-1256 PO; +ACET500T58 PO; -BIOT1TAB5 PO; -CALC1TAB27 PO; -DILT120C51 PO; -DXY100 PO; +IPRA-64 INH; -IPRASOL4 INH; -METR-162 PO; -NYSS/ PO
[2017-04-21 07:46] VITALS: TEMP 36.4
[2017-04-21] MEDS ORDERED: METHYLPREDNISOLONE 125 MG VIAL IV STA (08:03)
[2017-04-21 08:15] VITALS: O2SAT 94
[2017-04-21] MEDS ORDERED: ALBUT/IPRATROP 3MG/0.5MG NEB 3 ML VIAL INH ONE (08:15)
[2017-04-21 08:16] LABS: BASO % 0.1 %; BASO ABS # 0.01 K/uL (0-0.2); EOS % 0.1 %; EOS ABS # 0.01 K/uL (0-0.5); HEMATOCRIT 40.8 % (37-47); HEMOGLOBIN 12.5 g/dL (12.0-16.0); IG# 0.05 K/uL (0.00-0.02); LYMPH % 6.1 %; MEAN CELL VOLUME 87.9 fL (80-100); MEAN CORPUSCULAR HEMOGLOBIN 26.9 pg (25-34); MEAN CORPUSCULAR HGB CONC 30.6 g/dl (32-36); MEAN PLATELET VOLUME 9.5 fL (7.4-10.4); MONO % 7.4 %; MONO ABS # 0.73 K/uL (0.11-0.59); NEUT % 85.8 %; NEUT ABS # 8.43 K/uL (1.4-6.5); PLATELET COUNT 221 K/uL (130-400); RED CELL DISTRIBUTION WIDTH CV 15.7 % (11.5-14.5); RED CELL DISTRIBUTION WIDTH SD 50.7 fL (36.4-46.3); WHITE BLOOD COUNT 9.83 K/uL (4.8-10.8)
--- NOTE | 2017-04-21 08:19 | EMERGENCY ROOM VISIT NOTE ---
History Report prepared by Hiram: Susanne Castro Under the Supervision of: Dr. Fidel Kramer D.O. 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 She reports waking up this morning with increased shortness of breath. She has a cough. She currently rates her discomfort a 7/10 in severity. She notes that she has had two breathing treatments via nebulizer and at home oxygen. She notes that she was recently seen by her PCP for similar symptoms. She was prescribed Doxycycline and 60 mg Prednisone. She notes her dosage of Prednisone was reduced to 40 mg yesterday. The patient has a history COPD and chronic back pain. 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 A total of 10 systems reviewed and were otherwise negative. Past Medical & Surgical Medical Problems: (1) Arthritis (2) Bronchiectasis (3) Cellulitis (4) CKD (chronic kidney disease), stage III (5) COPD, severe (6) GERD (gastroesophageal reflux disease) (7) History of pseudo obstruction of colon (8) HTN (hypertension) (9) Hyperlipidemia (10) Nocturnal hypoxemia (11) Paroxysmal a-fib (12) Pulmonary hypertension (13) Spinal stenosis Surgical Problems: (1) H/O hernia repair (2) H/O: hysterectomy (3) History of cataract surgery (4) History of cholecystectomy (5) S/P lobectomy of lung Family History Diabetes mellitus MOTHER FH: CHF (congestive heart failure) MOTHER Social History Smoking Status: Never Smoker Alcohol Use: none Marital Status: Housing Status: lives with significant other Current/Historical Medications Scheduled Aspirin (Aspirin Ec), 81 MG PO DAILY Baclofen (Lioresal), 10 MG PO AMPM Budesonide (Pulmicort Respules 0.5MG/2ML), 2 ML INH BID Cholecalciferol (Vitamin D3), 2,000 INTER.UNIT PO QAM Diltiazem Hcl Coated Beads (Cardizem Cd), 240 MG PO QAM Docusate Sodium (Colace), 100 MG PO BID Home O2 Therapy (Oxygen), 2 LITERS NA HS Metformin Hcl (Glucophage), 1,000 MG PO BID Metoprolol Succinate (Metoprolol Succinate ER), 50 MG PO QAM Omeprazole (Prilosec), 20 MG PO QAM Polyethylene Glycol 3350 (Miralax), 17 GM PO DAILYBL Prednisone Tab (Prednisone), 10 MG PO QAM Senna/Docusate Sod (Senokot S), 1 TAB PO every afternoon Sertraline HCl (Sertraline HCl), 50 MG PO DAILY Zafirlukast (Accolate), 20 MG PO BID Scheduled PRN Acetaminophen (Acetaminophen), 2 TAB PO Q6 PRN for Pain or Fever Albuterol Hfa (Ventolin Hfa), 2 PUFFS INH Q4H PRN for SOB/Wheezing Furosemide (Lasix), 10 MG PO DAILY PRN for edema Ipratropium-Albuterol (Duoneb), 1 TREATMENT INH Q4 PRN for SOB/Wheezing Ondansetron Hcl (Zofran), 4 MG PO Q6 PRN for Nausea Prednisone (Deltasone), 20 MG PO UD PRN for COPD rescue kit Tramadol HCl (Tramadol HCl), 50 MG PO Q6 PRN for back pain Allergies Coded Allergies: Ciprofloxacin (Verified Allergy, Intermediate, hives, itching, 04/21/17) Amoxicillin (Verified Allergy, Mild, itching,TOLERATING ZOSYN 01/04/14, ) Clavulanic Acid (Verified Allergy, Mild, ITCHING,TOLERATING ZOSYN 01/04/14 , 04/21/17) Alendronate (Verified Adverse Reaction, Unknown, feet and hand pain, 04/21) Levofloxacin (Verified Adverse Reaction, Unknown, muscle pain, 04/21/17) Physical Exam Vital Signs Date Time Temp Pulse Resp B/P (MAP) Pulse Ox O2 Delivery O2 Flow Rate FiO2 04/21/17 08:28 71 18 96 Nasal Cannula 2.0 04/21/17 08:15 81 18 162/88 95 Nasal Cannula 2.0 04/21/17 08:15 94 Nasal Cannula 2.0 04/21/17 07:58 95 Room Air 04/21/17 07:57 72 04/21/17 07:54 92 Room Air 04/21/17 07:46 36.4 63 20 133/71 94 Room Air Physical Exam CONSTITUTIONAL/VITAL SIGNS: Reviewed / noted above. GENERAL: Non-toxic in appearance. INTEGUMENTARY: Warm, dry, and [place]. HEAD: Normocephalic. EYES: without scleral icterus or trauma. ENT/OROPHARYNX: clear and moist. LYMPHADENOPATHY/NECK: Is supple without lymphadenopathy or meningismus. RESPIRATORY: Bilateral expiratory wheezing. Mild increased work of breathing. CARDIOVASCULAR: Regular rate and rhythm. GI/ABDOMEN: Soft and nontender. No organomegaly or pulsatile mass. No rebound or guarding. Normal bowel sounds. EXTREMITIES: Warm and well perfused. BACK: No CVA tenderness. NEUROLOGICAL: Intact without focal deficits. PSYCHIATRIC: normal affect. MUSCULOSKELETAL: Normally developed with good muscle tone. Medical Decision & Procedures ER Provider Diagnostic Interpretation: Radiology results as stated below per my review and radiologist interpretation: CHEST ONE VIEW PORTABLE CLINICAL HISTORY: cough, wheezing, hx copd dyspnea COMPARISON STUDY: 06/07/2016 FINDINGS: Mild stable cardiomegaly. Slight chronic benign left lateral calcific angle. Unchanging small chronic right pleural effusion. Postoperative changes right hemithorax. Calcific density right base unaltered. No evidence for new or interval process. IMPRESSION: Chronic and postoperative change. No acute process. The above report was generated using voice recognition software. It may contain grammatical, syntax or spelling errors. Electronically signed by: Rojelio Sorto M.D. 04/21/2017 8:20 AM Dictated Date/Time: 04/21/2017 8:19 AM Laboratory Results 04/21/17 08:00 Red Blood Count 4.64, Mean Corpuscular Volume 87.9, Mean Corpuscular Hemoglobin 26.9, Mean Corpuscular Hemoglobin Concent 30.6, Mean Platelet Volume 9.5, Neutrophils (%) (Auto) 85.8, Lymphocytes (%) (Auto) 6.1, Monocytes (%) (Auto) 7.4, Eosinophils (%) (Auto) 0.1, Basophils (%) (Auto) 0.1, Neutrophils # (Auto) 8.43, Lymphocytes # (Auto) 0.60, Monocytes # (Auto) 0.73, Eosinophils # (Auto) 0.01, Basophils # (Auto) 0.01 04/21/17 08:00 Test 04/21/17 08:00 04/21/17 08:20 White Blood Count 9.83 K/uL (4.8-10.8) Red Blood Count 4.64 M/uL (4.2-5.4) Hemoglobin 12.5 g/dL (12.0-16.0) Hematocrit 40.8 % (37-47) Mean Corpuscular Volume 87.9 fL (80-100) Mean Corpuscular Hemoglobin 26.9 pg (25-34) Mean Corpuscular Hemoglobin Concent 30.6 g/dl (32-36) Platelet Count 221 K/uL (130-400) Mean Platelet Volume 9.5 fL (7.4-10.4) Neutrophils (%) (Auto) 85.8 % Lymphocytes (%) (Auto) 6.1 % Monocytes (%) (Auto) 7.4 % Eosinophils (%) (Auto) 0.1 % Basophils (%) (Auto) 0.1 % Neutrophils # (Auto) 8.43 K/uL (1.4-6.5) Lymphocytes # (Auto) 0.60 K/uL (1.2-3.4) Monocytes # (Auto) 0.73 K/uL (0.11-0.59) Eosinophils # (Auto) 0.01 K/uL (0-0.5) Basophils # (Auto) 0.01 K/uL (0-0.2) RDW Standard Deviation 50.7 fL (36.4-46.3) RDW Coefficient of Variation 15.7 % (11.5-14.5) Immature Granulocyte % (Auto) 0.5 % Immature Granulocyte # (Auto) 0.05 K/uL (0.00-0.02) Prothrombin Time 9.5 SECONDS (9.0-12.0) Prothromb Time International Ratio 0.9 (0.9-1.1) Activated Partial Thromboplast Time 24.3 SECONDS (21.0-31.0) Partial Thromboplastin Ratio 0.9 Anion Gap 9.0 mmol/L (3-11) Estimated GFR () 81.3 Estimated GFR (Non- 70.1 BUN/Creatinine Ratio 28.0 (10-20) Calcium Level 9.3 mg/dl (8.5-10.1) Total Bilirubin 0.4 mg/dl (0.2-1) Aspartate Amino Transf (AST/SGOT) 20 U/L (15-37) Alanine Aminotransferase (ALT/SGPT) 27 U/L (12-78) Alkaline Phosphatase 67 U/L (45-117) Total Creatine Kinase 57 U/L (26-192) Creatine Kinase MB 1.9 ng/ml (0.5-3.6) Creatine Kinase MB Ratio 3.3 (0-3.0) Troponin I < 0.015 ng/ml (0-0.045) Total Protein 6.5 gm/dl (6.4-8.2) Albumin 3.2 gm/dl (3.4-5.0) Globulin 3.3 gm/dl (2.5-4.0) Albumin/Globulin Ratio 1.0 (0.9-2) Influenza Type A Antigen POS for Influ A (NEG) Influenza Type B Antigen Neg for Influ B (NEG) Laboratory results as stated above per my review. Medications Administered Medications (Trade) Dose Ordered Sig/Toro Route Start Time Stop Time Status Last Admin Dose Admin Albuterol/ Ipratropium (Duoneb) 12 ml ONE ONCE INH 04/21/17 08:15 04/21/17 08:16 DC 04/21/17 08:28 12 ML Methylprednisolone Sodium Succinate (Solu-Medrol IV) 125 mg NOW STAT IV 04/21/17 08:03 04/21/17 08:05 DC 04/21/17 08:16 125 MG ECG Indication: SOB/dyspnea Rate (beats per minute): 73 Rhythm: sinus rhythm Findings: no acute ischemic change, no ectopy ED Course 0800: Previous medical records were reviewed. The patient was evaluated in room A9B. A complete history and physical examination was performed. 0803: Ordered Solu-Medrol 125 mg IV 0815: Ordered Duoneb 12 ml INH 0937: I reassessed the patient at this time. She is feeling better and resting comfortably. I discussed the results and treatment plan with the patient. I answered all pertaining questions that she had. She expressed understanding and verbalized agreement. The patient will be discharged home. Medical Decision Differentials considered include acute myocardial infarction, acute coronary syndrome, myocarditis, pericarditis, pericardial effusions /tamponade, esophageal perforation, pulmonary embolism, pneumonia, pneumothorax, cardiomyopathy, congestive heart, anemia, and COPD/asthma exacerbation. This is a 81-year-old female who presents to the ED with a chief complaint of a productive cough for yellow sputum as well as some shortness of breath. Her symptoms started on Saturday. The patient's family also had similar symptoms. They state that their symptoms lasted for about 2 weeks. Her vital signs are normal. Her exam is noted above. The patient's flu swab was positive for influenza A. Chest x-ray did not show acute disease. Cardiac enzymes, CBC and complete metabolic panel were unremarkable. Vital signs are normal. She is not hypoxic. She was given a DuoNeb treatment here. She was also given IV dose of sudden Medrol for some expiratory wheezing. The patient is currently on doxycycline, prednisone and has nebulizers at home. She is felt to be stable for discharge. The patient desires to go home. Medication Reconcilliation Current Medication List: was personally reviewed by me Blood Pressure Screening Patient's blood pressure: Normal blood pressure Impression Primary Impression: Influenza A Additional Impression: Shortness of breath Scribe Attestation The scribe's documentation has been prepared under my direction and personally reviewed by me in its entirety. I confirm that the note above accurately reflects all work, treatment, procedures, and medical decision making performed by me. Departure Information Dispostion Home / Self-Care Referrals Mamadou Torre M.D.([facility]) (PCP) Forms HOME CARE DOCUMENTATION FORM, IMPORTANT VISIT INFORMATION Patient Instructions My [facility] Additional Instructions Test results are positive for influenza A. Return for any worsening or other concerns. Problem Qualifiers
[2017-04-21 08:28] VITALS: PULSE 71; O2SAT 96
[2017-04-21 08:28] LABS: INR 0.9 (0.9-1.1); PTT PATIENT 24.3 SECONDS (21.0-31.0)
[2017-04-21] MEDS ORDERED: ZLF/50 PO (08:28)
[2017-04-21] MEDS ORDERED: PRED10TA PO (08:28)
[2017-04-21 08:34] LABS: ALBUMIN 3.2 gm/dl (3.4-5.0); ALT/SGPT 27 U/L (12-78); BLOOD UREA NITROGEN 22 mg/dl (7-18); CALCIUM 9.3 mg/dl (8.5-10.1); CARBON DIOXIDE 29 mmol/L (21-32); GLUCOSE 134 mg/dl (70-99); POTASSIUM 4.6 mmol/L (3.5-5.1); SODIUM 136 mmol/L (136-145)
[2017-04-21 08:39] LABS: ALKALINE PHOSPHATASE 67 U/L (45-117); AST/SGOT 20 U/L (15-37); CKMB 1.9 ng/ml (0.5-3.6); TOTAL PROTEIN 6.5 gm/dl (6.4-8.2)
[2017-04-21 09:11] LABS: INFLUENZA B ANTIGEN Neg for Influ B (NEG)
[2017-04-21 10:08] VITALS: BP 140/71; PULSE 92; O2SAT 96
[2017-04-29] MEDS ORDERED: LCTX PO (13:59)
[2017-04-29] MEDS ORDERED: METR500T PO (13:59)
[2017-04-29] MEDS ORDERED: CLC150 PO (13:59)
== END 2017-04-21 10:09 | disposition home or self-care (01) ==
LOC: C.EDB 07:40 → C.EDA 10:09
DX: J10.1 Influenza due to other identified influenza virus with other respiratory manifestations (principal); J44.9 Chronic obstructive pulmonary disease, unspecified; Z99.81 Dependence on supplemental oxygen; M48.00 Spinal stenosis, site unspecified; I12.9 Hypertensive chronic kidney disease with stage 1 through stage 4 chronic kidney disease, or unspecified chronic kidney disease; N18.3 Chronic kidney disease, stage 3 (moderate); K21.9 Gastro-esophageal reflux disease without esophagitis; E78.5 Hyperlipidemia, unspecified; I48.0 Paroxysmal atrial fibrillation; I27.20 Pulmonary hypertension, unspecified; Z90.2 Acquired absence of lung [part of]; Z79.82 Long term (current) use of aspirin; Z79.51 Long term (current) use of inhaled steroids; Z79.84 Long term (current) use of oral hypoglycemic drugs; Z79.52 Long term (current) use of systemic steroids

== ENCOUNTER 2017-04-25 05:52 | Inpatient (IN) | payer BC, OTHER ==
[~2017-04-25] VITALS: Ht 162.6 cm; Wt 57.6 kg
[~2017-04-25 05:52] MED LIST changes: -CEFD1CAP14 PO; -IPRA-64 INH; +IPRASOL4 INH; +PRED10TA PO; -PRED20TA PO; -SERT1TAB88 PO; +ZLF/50 PO
[2017-04-25] MEDS ORDERED: ONDANSETRON INJ 2 MG/ML 2 ML VIAL IV STA (07:00)
[2017-04-25] MEDS ORDERED: SODIUM CHLORIDE 0.9% 500ML 500 ML IV STA (07:00)
--- NOTE | 2017-04-25 07:06 | EMERGENCY ROOM VISIT NOTE ---
History First contact with patient: 06:39 Chief Complaint: RESPIRATORY PROBLEMS Stated Complaint: HARD TIME BREATHING Nursing Triage Summary: Diagnosed with Flu Saturday. Not feeling better. History of Present Illness The patient is a 81 year old female who presents to the Emergency Room with complaints of abdominal pain that occurred overnight. She states the pain is in the middle of her abdomen, dull. constant, and 10/10 in severity. She states the pain is associated with nausea, but no vomiting. She was able to eat a full dinner last night and reports she had a bowel movement overnight and denies the presence of blood in her stool. She was recently seen in the [facility] emergency department on April 21 and was diagnosed with influenza. She reports she remains with her productive cough, but that her breathing overall has improved. She is still on her tapering dose of prednisone (currently at 20mg) and doxycycline. Of note, she has a history of a large hernia repair in 1992, which according to her daughter was "botched" and required a revision. Her daughter also states she had a bowel obstruction in 2015 where her entire large bowel was impacted. She is now on a daily bowel regimen and has no problems with bowel movements. Review of Systems See HPI for pertinent positives & negatives. A total of 10 systems reviewed and were otherwise negative. Past Medical/Surgical History Medical Problems: (1) Arthritis (2) Bronchiectasis (3) Cellulitis (4) CKD (chronic kidney disease), stage III (5) COPD, severe (6) GERD (gastroesophageal reflux disease) (7) History of pseudo obstruction of colon (8) HTN (hypertension) (9) Hyperlipidemia (10) Nocturnal hypoxemia (11) Paroxysmal a-fib (12) Pulmonary hypertension (13) SBO (small bowel obstruction) (14) Spinal stenosis Surgical Problems: (1) H/O hernia repair (2) H/O: hysterectomy (3) History of cataract surgery (4) History of cholecystectomy (5) S/P lobectomy of lung Family History Diabetes mellitus MOTHER FH: CHF (congestive heart failure) MOTHER Social History Smoking Status: Never Smoker Alcohol Use: none Marital Status: Housing Status: lives with significant other Current/Historical Medications Scheduled Aspirin (Aspirin Ec), 81 MG PO DAILY Baclofen (Lioresal), 10 MG PO AMPM Biotin (Biotin), 1,000 MCG PO DAILY Budesonide (Pulmicort Respules 0.5MG/2ML), 2 ML INH BID Tibafaj-Itdpbngjk-Qelh (Calcium Magnesium & Zinc), 1 TAB PO DAILY Cholecalciferol (Vitamin D3), 2,000 INTER.UNIT PO QAM Diltiazem Hcl Coated Beads (Cardizem Cd), 240 MG PO QAM Docusate Sodium (Colace), 100 MG PO BID Home O2 Therapy (Oxygen), 2 LITERS NA HS Metformin Hcl (Glucophage), 1,000 MG PO BID Metoprolol Succinate (Metoprolol Succinate ER), 50 MG PO QAM Omeprazole (Prilosec), 20 MG PO QAM Polyethylene Glycol 3350 (Miralax), 17 GM PO DAILYBL Prednisone Tab (Prednisone), 10 MG PO QAM Senna/Docusate Sod (Senokot S), 1 TAB PO every afternoon Sertraline (Zoloft), 25 MG PO DAILY Zafirlukast (Accolate), 20 MG PO BID Scheduled PRN Acetaminophen (Acetaminophen), 2 TAB PO Q6 PRN for Pain or Fever Albuterol Hfa (Ventolin Hfa), 2 PUFFS INH Q4H PRN for SOB/Wheezing Furosemide (Lasix), 20 MG PO BID PRN for edema Ipratropium-Albuterol (Duoneb), 1 TREATMENT INH Q4 PRN for SOB/Wheezing Ondansetron Hcl (Zofran), 4 MG PO Q6 PRN for Nausea Prednisone (Deltasone), 20 MG PO UD PRN for COPD rescue kit Tramadol HCl (Tramadol HCl), 50 MG PO Q6 PRN for back pain Physical Exam Vital Signs Date Time Temp Pulse Resp B/P (MAP) Pulse Ox O2 Delivery O2 Flow Rate FiO2 04/25/17 09:47 78 22 131/61 93 04/25/17 09:32 93 Nasal Cannula 4.0 04/25/17 07:56 93 Nasal Cannula 4.0 04/25/17 07:55 69 20 130/64 87 Room Air 04/25/17 06:17 Room Air 04/25/17 05:54 36.7 75 24 136/67 92 Room Air Physical Exam General: Patient is lying on right side as she reports this is the most comfortable position. Heart: Regular rate and rhythm. There is a normal S1 and S2 with no murmurs, clicks, or gallops appreciated. Lungs: Clear to auscultation bilaterally with slight wheezing bilaterally. Abdomen: Midline distension in lower abdomen, tender over LLQ and left flank. There is no guarding, rigidity, or rebound noted. Extremities: No evidence of cyanosis, clubbing, or edema. There are easily palpable peripheral pulses. Neuro:The patient is awake and alert, oriented to day, time, and place. Muscle strength is 5/5 in all 4 extremities. The patient has equal ticket collector strength and equal pedal push and pull. There are no cerebellar signs. Medical Decision & Procedures ER Provider Diagnostic Interpretation: ABD/PELVIS WITHOUT FOR STONE CT DOSE: 691.46 mGy.cm HISTORY: Pain left sided abd pain TECHNIQUE: Multiaxial CT images of the abdomen and pelvis were performed without the use of intravenous and oral contrast according to the standard department stone protocol. A dose lowering technique was utilized adhering to the principles of ALARA. COMPARISON STUDY: 09/11/2015 FINDINGS: Lung bases in general are similar appearance compared to the prior study. . The circumferential calcification right lung base including pleural and parenchymal changes at the right to lesser extent left base are similar. Findings of mild stable cardiomegaly. Liver is uniform throughout. There is been a prior cholecystectomy. Several pancreatic calcifications unchanged in the prior study. Several vascular calcifications at the level of the splenic hilum. These are unchanged from the prior study. The kidneys are negative for calcification or hydronephrosis. There is evidence for small bowel distention in general findings of partial small bowel obstruction distally. Etiology is unknown. Terminal ileum is normal in terms of caliber. A well-defined obstructing mass or definite transition zone is not appreciated. The appendix is seen in part and appears unremarkable. Moderate amount of fecal material is identified within the colon. The colon assumes a nonobstructive bowel pattern. Stable degenerative changes of the osseous structures throughout. Mild bladder distention. Multiple pelvic vascular calcifications. Minimal partial rectal prolapse. Marginal minimal bladder prolapse. IMPRESSION: 1. Partial distal small bowel obstruction of uncertain etiology. 2. An obstructing mass or lesion is not appreciated. The possibility of adhesions versus nonvisualized internal hernia. 3. Extensive chronic changes as noted with no additional acute abnormality. CHEST ONE VIEW PORTABLE CLINICAL HISTORY: ABDOMINAL PAIN/GI pain. Dyspnea. COMPARISON STUDY: 04/21/2017 FINDINGS: Unchanging peripherally calcified density right base. Small right effusion unchanged. A somewhat progressive platelike atelectasis left base. Mid and upper lungs are considered clear. Chronic apical fibrotic change bilaterally. IMPRESSION: 1. Progressive pelvic atelectasis left base. 2. Stable chronic and postoperative change Laboratory Results 04/25/17 07:25 Red Blood Count 4.79, Mean Corpuscular Volume 86.0, Mean Corpuscular Hemoglobin 27.3, Mean Corpuscular Hemoglobin Concent 31.8, Mean Platelet Volume 9.7, Neutrophils (%) (Auto) 82.5, Lymphocytes (%) (Auto) 10.9, Monocytes (%) (Auto) 5.7, Eosinophils (%) (Auto) 0.3, Basophils (%) (Auto) 0.1, Neutrophils # (Auto) 11.08, Lymphocytes # (Auto) 1.46, Monocytes # (Auto) 0.76, Eosinophils # (Auto) 0.04, Basophils # (Auto) 0.01 04/25/17 07:25 Test 04/25/17 07:25 04/25/17 08:46 White Blood Count 13.42 K/uL (4.8-10.8) Red Blood Count 4.79 M/uL (4.2-5.4) Hemoglobin 13.1 g/dL (12.0-16.0) Hematocrit 41.2 % (37-47) Mean Corpuscular Volume 86.0 fL (80-100) Mean Corpuscular Hemoglobin 27.3 pg (25-34) Mean Corpuscular Hemoglobin Concent 31.8 g/dl (32-36) Platelet Count 236 K/uL (130-400) Mean Platelet Volume 9.7 fL (7.4-10.4) Neutrophils (%) (Auto) 82.5 % Lymphocytes (%) (Auto) 10.9 % Monocytes (%) (Auto) 5.7 % Eosinophils (%) (Auto) 0.3 % Basophils (%) (Auto) 0.1 % Neutrophils # (Auto) 11.08 K/uL (1.4-6.5) Lymphocytes # (Auto) 1.46 K/uL (1.2-3.4) Monocytes # (Auto) 0.76 K/uL (0.11-0.59) Eosinophils # (Auto) 0.04 K/uL (0-0.5) Basophils # (Auto) 0.01 K/uL (0-0.2) RDW Standard Deviation 49.1 fL (36.4-46.3) RDW Coefficient of Variation 15.5 % (11.5-14.5) Immature Granulocyte % (Auto) 0.5 % Immature Granulocyte # (Auto) 0.07 K/uL (0.00-0.02) Prothrombin Time 9.6 SECONDS (9.0-12.0) Prothromb Time International Ratio 0.9 (0.9-1.1) Activated Partial Thromboplast Time 22.6 SECONDS (21.0-31.0) Partial Thromboplastin Ratio 0.9 Anion Gap 8.0 mmol/L (3-11) Est Creatinine Clear Calc Drug Dose 49.9 ml/min Estimated GFR () 82.5 Estimated GFR (Non- 71.2 BUN/Creatinine Ratio 29.4 (10-20) Calcium Level 9.3 mg/dl (8.5-10.1) Total Bilirubin 0.6 mg/dl (0.2-1) Direct Bilirubin 0.1 mg/dl (0-0.2) Aspartate Amino Transf (AST/SGOT) 18 U/L (15-37) Alanine Aminotransferase (ALT/SGPT) 27 U/L (12-78) Alkaline Phosphatase 58 U/L (45-117) Total Protein 6.4 gm/dl (6.4-8.2) Albumin 2.9 gm/dl (3.4-5.0) Lipase 85 U/L (73-393) Lactic Acid Level 2.9 mmol/L (0.4-2.0) Medications Administered Medications (Trade) Dose Ordered Sig/Toro Route Start Time Stop Time Status Last Admin Dose Admin Ondansetron HCl (Zofran Inj) 4 mg NOW STAT IV 04/25/17 07:00 04/25/17 07:14 DC 04/25/17 07:34 4 MG Sodium Chloride 500 ml @ 999 mls/hr Q31M STAT IV 04/25/17 07:00 04/25/17 07:30 DC 04/25/17 07:34 999 MLS/HR Morphine Sulfate (MoRPHine SULFATE INJ) 2 mg STK-MED ONCE .ROUTE 04/25/17 07:28 04/25/17 07:29 DC 04/25/17 07:35 2 MG ED Course 6:39: The patient was evaluated in room A10. A complete history and physical exam was performed. 6:50: The case was discussed with the attending, Dr. Kramer. 7:00: The patient was seen with Dr Kramer. Sodium Chloride 500 ml bolus and Zofran 4 mg IV were ordered 7:26: Ordered Morphine Sulfate 2 mg IV for pain relief 8:30: The case was discussed with [facility] hospitalist, Annie Dela Cruz, who will evaluate for admission Medical Decision Etiologies such as kidney stone, diverticulitis, colitis, inflammatory bowel disease, malignancy, peptic ulcer disease, bowel obstruction, strangulated hernia as well as others were entertained. Ms. Jin is a 81-year-old female who presented with severe abdominal pain in the epigastric area. She was also diagnosed with influenza 5 days ago. Her abdominal pain is associated with nausea. She did have a normal bowel movement overnight. Her physical exam was positive for abdominal tenderness in the LLQ and left flank. The patient's white blood cell count was elevated at 13.4 - this was likely due to her steroid use. Complete metabolic panel was unremarkable. The patient was treated with IV Normal Saline, IV morphine and IV Zofran. Her CT scan revealed a partial distal small bowel obstruction. This was discussed with the hospitalist and she will be seen by them for further evaluation. Impression Primary Impression: Partial small bowel obstruction Additional Impression: Influenza Departure Information Dispostion Being Evaluated By Hospitalist Referrals Mamadou Torre M.D.([facility]) (PCP) Patient Instructions My [facility] Resident Tracking Resident Involvement: Resident Care Provided Care Provided: Adult ED Problem Qualifiers
[2017-04-25] MEDS ORDERED: FENTANYL CITRATE INJ 50 MCG/1 ML 2 ML VIAL IV STA (07:24)
[2017-04-25] MEDS ORDERED: MoRPHine SULFATE 4 MG/ML 1 ML CARP\\VIAL IV STA (07:26)
[2017-04-25] MEDS ORDERED: MoRPHine SULFATE 2 MG/ML CARP ONE ×2 (07:28→14:07)
[2017-04-25 07:37] LABS: BASO % 0.1 %; BASO ABS # 0.01 K/uL (0-0.2); EOS % 0.3 %; EOS ABS # 0.04 K/uL (0-0.5); HEMATOCRIT 41.2 % (37-47); HEMOGLOBIN 13.1 g/dL (12.0-16.0); IG# 0.07 K/uL (0.00-0.02); LYMPH % 10.9 %; LYMPH ABS # 1.46 K/uL (1.2-3.4); MEAN CORPUSCULAR HEMOGLOBIN 27.3 pg (25-34); MEAN CORPUSCULAR HGB CONC 31.8 g/dl (32-36); MEAN PLATELET VOLUME 9.7 fL (7.4-10.4); MONO % 5.7 %; MONO ABS # 0.76 K/uL (0.11-0.59); NEUT % 82.5 %; NEUT ABS # 11.08 K/uL (1.4-6.5); PLATELET COUNT 236 K/uL (130-400); RED CELL DISTRIBUTION WIDTH CV 15.5 % (11.5-14.5); RED CELL DISTRIBUTION WIDTH SD 49.1 fL (36.4-46.3); WHITE BLOOD COUNT 13.42 K/uL (4.8-10.8)
[2017-04-25 07:48] LABS: INR 0.9 (0.9-1.1); PTT PATIENT 22.6 SECONDS (21.0-31.0)
[2017-04-25 07:55] LABS: ALBUMIN 2.9 gm/dl (3.4-5.0); CALCIUM 9.3 mg/dl (8.5-10.1); CREATININE 0.79 mg/dl (0.60-1.20); POTASSIUM 3.8 mmol/L (3.5-5.1)
[2017-04-25 07:58] LABS: TOTAL PROTEIN 6.4 gm/dl (6.4-8.2)
--- NOTE | 2017-04-25 08:09 | DIAGNOSTIC IMAGING REPORT ---
ABD/PELVIS WITHOUT FOR STONE CT DOSE: 691.46 mGy.cm HISTORY: Pain left sided abd pain TECHNIQUE: Multiaxial CT images of the abdomen and pelvis were performed without the use of intravenous and oral contrast according to the standard department stone protocol. A dose lowering technique was utilized adhering to the principles of ALARA. COMPARISON STUDY: 09/11/2015 FINDINGS: Lung bases in general are similar appearance compared to the prior study. . The circumferential calcification right lung base including pleural and parenchymal changes at the right to lesser extent left base are similar. Findings of mild stable cardiomegaly. Liver is uniform throughout. There is been a prior cholecystectomy. Several pancreatic calcifications unchanged in the prior study. Several vascular calcifications at the level of the splenic hilum. These are unchanged from the prior study. The kidneys are negative for calcification or hydronephrosis. There is evidence for small bowel distention in general findings of partial small bowel obstruction distally. Etiology is unknown. Terminal ileum is normal in terms of caliber. A well-defined obstructing mass or definite transition zone is not appreciated. The appendix is seen in part and appears unremarkable. Moderate amount of fecal material is identified within the colon. The colon assumes a nonobstructive bowel pattern. Stable degenerative changes of the osseous structures throughout. Mild bladder distention. Multiple pelvic vascular calcifications. Minimal partial rectal prolapse. Marginal minimal bladder prolapse. IMPRESSION: 1. Partial distal small bowel obstruction of uncertain etiology. 2. An obstructing mass or lesion is not appreciated. The possibility of adhesions versus nonvisualized internal hernia. 3. Extensive chronic changes as noted with no additional acute abnormality. The above report was generated using voice recognition software. It may contain grammatical, syntax or spelling errors. Electronically signed by: Rojelio Sorto M.D. 04/25/2017 8:07 AM Dictated Date/Time: 04/25/2017 7:57 AM
--- NOTE | 2017-04-25 08:26 | EMERGENCY ROOM VISIT NOTE ---
History Report prepared by Hiram: Susanne Castro Under the Supervision of: Krista HarmonO. First contact with patient: 06:39 Chief Complaint: RESPIRATORY PROBLEMS Stated Complaint: HARD TIME BREATHING Nursing Triage Summary: Diagnosed with Flu Saturday. Not feeling better. 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 She notes that she woke up today with dull abdominal pain and nausea. She currently rates her pain a 10/10 in severity. She was recently seen April 21, 2017 for shortness of breath and diagnosed with Influenza. She notes that her shortness of breath has resolved. She notes her last normal bowel movement was yesterday. She has a history of COPD, umbilical hernia repair, SBO, and cholecystectomy. She states that she has an abdominal mesh. She is currently taking 20 mg Prednisone and Doxycycline. She denies any fevers, vomiting, shortness of breath, diarrhea, or other respiratory issues. 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 Review of Systems See HPI for pertinent positives & negatives. A total of 10 systems reviewed and were otherwise negative. Past Medical & Surgical Medical Problems: (1) Arthritis (2) Bronchiectasis (3) COPD, severe (4) GERD (gastroesophageal reflux disease) (5) History of pseudo obstruction of colon (6) HTN (hypertension) (7) Hyperlipidemia (8) Nocturnal hypoxemia (9) Paroxysmal a-fib (10) Pulmonary hypertension (11) SBO (small bowel obstruction) (12) Spinal stenosis Surgical Problems: (1) H/O hernia repair (2) H/O: hysterectomy (3) History of cataract surgery (4) History of cholecystectomy (5) S/P lobectomy of lung Family History Diabetes mellitus MOTHER FH: CHF (congestive heart failure) MOTHER Social History Smoking Status: Never Smoker Alcohol Use: none Marital Status: Housing Status: lives with significant other Current/Historical Medications Scheduled Aspirin (Aspirin Ec), 81 MG PO DAILY Baclofen (Lioresal), 10 MG PO AMPM Biotin (Biotin), 1,000 MCG PO DAILY Budesonide (Pulmicort Respules 0.5MG/2ML), 2 ML INH BID Xcshvuk-Fnubbkrja-Zevy (Calcium Magnesium & Zinc), 1 TAB PO DAILY Cholecalciferol (Vitamin D3), 2,000 INTER.UNIT PO QAM Diltiazem Hcl Coated Beads (Cardizem Cd), 240 MG PO QAM Docusate Sodium (Colace), 100 MG PO BID Home O2 Therapy (Oxygen), 2 LITERS NA HS Metformin Hcl (Glucophage), 1,000 MG PO BID Metoprolol Succinate (Metoprolol Succinate ER), 50 MG PO QAM Omeprazole (Prilosec), 20 MG PO QAM Polyethylene Glycol 3350 (Miralax), 17 GM PO DAILYBL Prednisone Tab (Prednisone), 10 MG PO QAM Senna/Docusate Sod (Senokot S), 1 TAB PO every afternoon Sertraline (Zoloft), 25 MG PO DAILY Zafirlukast (Accolate), 20 MG PO BID Scheduled PRN Acetaminophen (Acetaminophen), 2 TAB PO Q6 PRN for Pain or Fever Albuterol Hfa (Ventolin Hfa), 2 PUFFS INH Q4H PRN for SOB/Wheezing Doxycycline (Monohydrate) (Doxycycline), 100 MG PO BID PRN for copd rescue kit Furosemide (Lasix), 20 MG PO BID PRN for edema Ipratropium-Albuterol (Duoneb), 1 TREATMENT INH Q4 PRN for SOB/Wheezing Ondansetron Hcl (Zofran), 4 MG PO Q6 PRN for Nausea Prednisone (Deltasone), 20 MG PO UD PRN for COPD rescue kit Tramadol HCl (Tramadol HCl), 50 MG PO Q6 PRN for back pain Allergies Coded Allergies: Ciprofloxacin (Verified Allergy, Intermediate, hives, itching, 04/25/17) Amoxicillin (Verified Allergy, Mild, itching,TOLERATING ZOSYN 01/04/14, 04/25) Clavulanic Acid (Verified Allergy, Mild, ITCHING,TOLERATING ZOSYN 01/04/14 , 04/25/17) Alendronate (Verified Adverse Reaction, Unknown, feet and hand pain, ) Levofloxacin (Verified Adverse Reaction, Unknown, muscle pain, 04/25/17) Physical Exam Vital Signs Date Time Temp Pulse Resp B/P (MAP) Pulse Ox O2 Delivery O2 Flow Rate FiO2 04/25/17 07:56 93 Nasal Cannula 4.0 04/25/17 07:55 69 20 130/64 87 Room Air 04/25/17 06:17 Room Air 04/25/17 05:54 36.7 75 24 136/67 92 Room Air Physical Exam CONSTITUTIONAL/VITAL SIGNS: Reviewed / noted above. GENERAL: Non-toxic in appearance. INTEGUMENTARY: Warm, dry, and University. HEAD: Normocephalic. EYES: without scleral icterus or trauma. ENT/OROPHARYNX: clear and moist. LYMPHADENOPATHY/NECK: Is supple without lymphadenopathy or meningismus. RESPIRATORY: Lungs clear and equal. CARDIOVASCULAR: Regular rate and rhythm. GI/ABDOMEN: Soft and mild diffuse abdominal tenderness, greatest in LLQ. No organomegaly or pulsatile mass. No rebound or guarding. Normal bowel sounds. EXTREMITIES: Warm and well perfused. BACK: No CVA tenderness. NEUROLOGICAL: Intact without focal deficits. PSYCHIATRIC: normal affect. MUSCULOSKELETAL: Normally developed with good muscle tone. Medical Decision & Procedures ER Provider Diagnostic Interpretation: Radiology results as stated below per my review and radiologist interpretation: ABD/PELVIS WITHOUT FOR STONE CT DOSE: 691.46 mGy.cm HISTORY: Pain left sided abd pain TECHNIQUE: Multiaxial CT images of the abdomen and pelvis were performed without the use of intravenous and oral contrast according to the standard department stone protocol. A dose lowering technique was utilized adhering to the principles of ALARA. COMPARISON STUDY: 09/11/2015 FINDINGS: Lung bases in general are similar appearance compared to the prior study. . The circumferential calcification right lung base including pleural and parenchymal changes at the right to lesser extent left base are similar. Findings of mild stable cardiomegaly. Liver is uniform throughout. There is been a prior cholecystectomy. Several pancreatic calcifications unchanged in the prior study. Several vascular calcifications at the level of the splenic hilum. These are unchanged from the prior study. The kidneys are negative for calcification or hydronephrosis. There is evidence for small bowel distention in general findings of partial small bowel obstruction distally. Etiology is unknown. Terminal ileum is normal in terms of caliber. A well-defined obstructing mass or definite transition zone is not appreciated. The appendix is seen in part and appears unremarkable. Moderate amount of fecal material is identified within the colon. The colon assumes a nonobstructive bowel pattern. Stable degenerative changes of the osseous structures throughout. Mild bladder distention. Multiple pelvic vascular calcifications. Minimal partial rectal prolapse. Marginal minimal bladder prolapse. IMPRESSION: 1. Partial distal small bowel obstruction of uncertain etiology. 2. An obstructing mass or lesion is not appreciated. The possibility of adhesions versus nonvisualized internal hernia. 3. Extensive chronic changes as noted with no additional acute abnormality. The above report was generated using voice recognition software. It may contain grammatical, syntax or spelling errors. Electronically signed by: Rojelio Sorto M.D. 04/25/2017 8:07 AM Dictated Date/Time: 04/25/2017 7:57 AM CHEST ONE VIEW PORTABLE CLINICAL HISTORY: ABDOMINAL PAIN/GI pain. Dyspnea. COMPARISON STUDY: 04/21/2017 FINDINGS: Unchanging peripherally calcified density right base. Small right effusion unchanged. A somewhat progressive platelike atelectasis left base. Mid and upper lungs are considered clear. Chronic apical fibrotic change bilaterally. IMPRESSION: 1. Progressive pelvic atelectasis left base. 2. Stable chronic and postoperative change The above report was generated using voice recognition software. It may contain grammatical, syntax or spelling errors. Electronically signed by: Rojelio Sorto M.D. 04/25/2017 8:24 AM Dictated Date/Time: 04/25/2017 8:23 AM Laboratory Results 04/25/17 07:25 Red Blood Count 4.79, Mean Corpuscular Volume 86.0, Mean Corpuscular Hemoglobin 27.3, Mean Corpuscular Hemoglobin Concent 31.8, Mean Platelet Volume 9.7, Neutrophils (%) (Auto) 82.5, Lymphocytes (%) (Auto) 10.9, Monocytes (%) (Auto) 5.7, Eosinophils (%) (Auto) 0.3, Basophils (%) (Auto) 0.1, Neutrophils # (Auto) 11.08, Lymphocytes # (Auto) 1.46, Monocytes # (Auto) 0.76, Eosinophils # (Auto) 0.04, Basophils # (Auto) 0.01 04/25/17 07:25 Test 04/25/17 07:25 04/25/17 08:46 White Blood Count 13.42 K/uL (4.8-10.8) Red Blood Count 4.79 M/uL (4.2-5.4) Hemoglobin 13.1 g/dL (12.0-16.0) Hematocrit 41.2 % (37-47) Mean Corpuscular Volume 86.0 fL (80-100) Mean Corpuscular Hemoglobin 27.3 pg (25-34) Mean Corpuscular Hemoglobin Concent 31.8 g/dl (32-36) Platelet Count 236 K/uL (130-400) Mean Platelet Volume 9.7 fL (7.4-10.4) Neutrophils (%) (Auto) 82.5 % Lymphocytes (%) (Auto) 10.9 % Monocytes (%) (Auto) 5.7 % Eosinophils (%) (Auto) 0.3 % Basophils (%) (Auto) 0.1 % Neutrophils # (Auto) 11.08 K/uL (1.4-6.5) Lymphocytes # (Auto) 1.46 K/uL (1.2-3.4) Monocytes # (Auto) 0.76 K/uL (0.11-0.59) Eosinophils # (Auto) 0.04 K/uL (0-0.5) Basophils # (Auto) 0.01 K/uL (0-0.2) RDW Standard Deviation 49.1 fL (36.4-46.3) RDW Coefficient of Variation 15.5 % (11.5-14.5) Immature Granulocyte % (Auto) 0.5 % Immature Granulocyte # (Auto) 0.07 K/uL (0.00-0.02) Prothrombin Time 9.6 SECONDS (9.0-12.0) Prothromb Time International Ratio 0.9 (0.9-1.1) Activated Partial Thromboplast Time 22.6 SECONDS (21.0-31.0) Partial Thromboplastin Ratio 0.9 Anion Gap 8.0 mmol/L (3-11) Est Creatinine Clear Calc Drug Dose 49.9 ml/min Estimated GFR () 82.5 Estimated GFR (Non- 71.2 BUN/Creatinine Ratio 29.4 (10-20) Calcium Level 9.3 mg/dl (8.5-10.1) Total Bilirubin 0.6 mg/dl (0.2-1) Direct Bilirubin 0.1 mg/dl (0-0.2) Aspartate Amino Transf (AST/SGOT) 18 U/L (15-37) Alanine Aminotransferase (ALT/SGPT) 27 U/L (12-78) Alkaline Phosphatase 58 U/L (45-117) Total Protein 6.4 gm/dl (6.4-8.2) Albumin 2.9 gm/dl (3.4-5.0) Lipase 85 U/L (73-393) Lactic Acid Level 2.9 mmol/L (0.4-2.0) Laboratory results as stated above per my review. Medications Administered Medications (Trade) Dose Ordered Sig/Toro Route Start Time Stop Time Status Last Admin Dose Admin Ondansetron HCl (Zofran Inj) 4 mg NOW STAT IV 04/25/17 07:00 04/25/17 07:14 DC 04/25/17 07:34 4 MG Sodium Chloride 500 ml @ 999 mls/hr Q31M STAT IV 04/25/17 07:00 04/25/17 07:30 DC 04/25/17 07:34 999 MLS/HR Morphine Sulfate (MoRPHine SULFATE INJ) 2 mg STK-MED ONCE .ROUTE 04/25/17 07:28 04/25/17 07:29 DC 04/25/17 07:35 2 MG ED Course 0655: Previous medical records were reviewed. The patient was evaluated in room A10. A complete history and physical examination was performed. 0700: Ordered Sodium Chloride 500 ml @ 999 mls/hr IV,and Zofran 4 mg IV 0724: Ordered Fentanyl 50 mcg IV 0726: Ordered Morphine Sulfate 2 mg IV 0830: I spoke with ADRIAN Casillas. We discussed the patients case. The patient will be evaluated by the [facility] for further management. Medical Decision Differential considered: pancreatitis, hepatitis, or acute cholecystitis, AAA, UTI, pyelonephritis, kidney stones, appendicitis, diverticulitis, shingles, bowel obstruction mesenteric ischemia, intussusception, hernia, ovarian torsion , ruptured ovarian cyst, ectopic , . This is a 81-year-old female who presents to the ED with a chief complaint of abdominal pain. The patient states that her symptoms started overnight. She had a normal bowel movement last night. She reports a history of cholecystectomy. The patient states that her pain is mostly in the epigastric area associated with nausea but no vomiting. Her vital signs normal. Her physical exam reveals diffuse abdominal tenderness that is mild in nature with increased tenderness in the left lower quadrant. The patient's white blood cell count 13.4. Complete metabolic panel was unremarkable. BUN is 23. The patient was diagnosed with influenza a couple of days ago. The patient was treated with IV fluids, IV morphine and IV Zofran. She will be seen by the hospitalist service for further inpatient evaluation. Medication Reconcilliation Current Medication List: was personally reviewed by me Blood Pressure Screening Patient's blood pressure: Elevated blood pressure Blood pressure disposition: Elevated BP felt to be situational Consults Time Called: [phone] Consulting Physician: ADRIAN Casillas Returned Call: [phone] I spoke with ADRIAN Casillas. We discussed the patients case. The patient will be evaluated by the [facility] for further management. Impression Primary Impression: Partial small bowel obstruction Additional Impression: Abdominal pain Scribe Attestation The scribe's documentation has been prepared under my direction and personally reviewed by me in its entirety. I confirm that the note above accurately reflects all work, treatment, procedures, and medical decision making performed by me. Departure Information Dispostion Being Evaluated By Hospitalist Referrals Mamadou Torre M.D.([facility]) (PCP) Patient Instructions My [facility] Problem Qualifiers
[2017-04-25] MEDS ORDERED: ONDANSETRON INJ 2 MG/ML 2 ML VIAL IV PRN (09:30)
[2017-04-25 09:32] VITALS: O2SAT 93; Ht 162.6 cm; Wt 57.6 kg
[2017-04-25] MEDS ORDERED: DEXTROSE 50% 50 ML SYR IV PRN (09:45)
[2017-04-25] MEDS ORDERED: GLUCAGON FOR INJ 1 MG VIAL SQ PRN (09:45)
[2017-04-25] MEDS ORDERED: GLUCOSE 10 TABS/TUBE PO PRN (09:45)
[2017-04-25] MEDS ORDERED: GLUCOSE 40% GEL 15 GM TUBE PO PRN (09:45)
[2017-04-25] MEDS ORDERED: SERT25TA PO (09:54)
[2017-04-25] MEDS ORDERED: BIOT1TAB5 PO (09:54)
[2017-04-25] MEDS ORDERED: CALC1TAB27 PO (09:54)
[2017-04-25] MEDS ORDERED: DOXY-300 PO (10:02)
[2017-04-25] MEDS ORDERED: ALBUT/IPRATROP 3MG/0.5MG NEB 3 ML VIAL INH PRN (10:15)
[2017-04-25] MEDS ORDERED: TRAMADOL HCL 50 MG TAB PO PRN (10:15)
[2017-04-25 10:30] VITALS: BP 130/67; PULSE 74; TEMP 37; O2SAT 94
[2017-04-25] MEDS ORDERED: INSULIN ASPART 100 UNITS/ML 3 ML PEN SC SCH (11:00)
--- NOTE | 2017-04-25 11:03 | History and Physical ---
History & Physical Date & Time of Service: Apr 25, 2017 ~ 9:00 Chief Complaint: Abdominal Pain, [place] Primary Care Physician: Mamadou Torre M.D.([facility]) History of Present Illness 81 year old female who presents to the ED with abdominal pain and nausea. Patient reports her symptoms started last night. A little over a week ago patient started Prednisone and doxycycline COPD rescue kit. She was seen in the ED on 04/21 and diagnosed with influenza A. She feels like her respiratory symptoms are improving. Last night she developed epigastric and LLQ abdominal pain. She had severe nausea. She denies vomiting. Had a normal bowel movement last night. No BRBPR or dark tarry stools. Patient felt like her abdomen was more distended last night but feels like that is better today. She denies chest pain. She has some shortness of breath from her recent respiratory illness which is improving. She denies lightheadedness, dizziness, diaphoresis, or syncopal events. No fevers or chills. She denies urinary symptoms. In the ED, patient had a CT abd/pelvis that showed a partial SBO. Labs show mild leukocytosis and hyponatremia. Lactic acid is 2.9. Vitals are stable. Past Medical/Surgical History Medical Problems: (1) Arthritis Status: Chronic (2) Bronchiectasis Status: Chronic (3) COPD, severe Status: Chronic (4) GERD (gastroesophageal reflux disease) Status: Chronic (5) History of pseudo obstruction of colon Status: Chronic (6) HTN (hypertension) Status: Chronic (7) Hyperlipidemia Permanent Comment: statin intolerance Status: Chronic (8) Nocturnal hypoxemia Status: Chronic (9) Paroxysmal a-fib Status: Chronic (10) Pulmonary hypertension Status: Chronic (11) SBO (small bowel obstruction) Status: Chronic (12) Spinal stenosis Status: Chronic Surgical Problems: (1) H/O hernia repair Status: Chronic (2) H/O: hysterectomy Status: Chronic (3) History of cataract surgery Status: Chronic (4) History of cholecystectomy Status: Chronic (5) 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 Family History Diabetes mellitus MOTHER FH: CHF (congestive heart failure) MOTHER Social History Smoking Status: Never Smoker Alcohol Use: none Immunizations History of Influenza Vaccine: Yes Influenza Vaccine Date: Jan 04, 2017 History of Tetanus Vaccine?: Yes Tetanus Immunization Date: Nov 06, 2010 History of Pneumococcal: Yes Pneumococcal Date: Sep 23, 2014 Multi-Drug Resistant Organisms History of MDRO: No Allergies Coded Allergies: Ciprofloxacin (Verified Allergy, Intermediate, hives, itching, 04/25/17) Amoxicillin (Verified Allergy, Mild, itching,TOLERATING ZOSYN 01/04/14, 04/25) Clavulanic Acid (Verified Allergy, Mild, ITCHING,TOLERATING ZOSYN 01/04/14 , 04/25/17) Alendronate (Verified Adverse Reaction, Unknown, feet and hand pain, ) Levofloxacin (Verified Adverse Reaction, Unknown, muscle pain, 04/25/17) Home Medications Scheduled Aspirin (Aspirin Ec), 81 MG PO DAILY Baclofen (Lioresal), 10 MG PO AMPM Biotin (Biotin), 1,000 MCG PO DAILY Budesonide (Pulmicort Respules 0.5MG/2ML), 2 ML INH BID Xugqslu-Wnmcnjtai-Ioer (Calcium Magnesium & Zinc), 1 TAB PO DAILY Cholecalciferol (Vitamin D3), 2,000 INTER.UNIT PO QAM Diltiazem Hcl Coated Beads (Cardizem Cd), 240 MG PO QAM Docusate Sodium (Colace), 100 MG PO BID Home O2 Therapy (Oxygen), 2 LITERS NA HS Metformin Hcl (Glucophage), 1,000 MG PO BID Metoprolol Succinate (Metoprolol Succinate ER), 50 MG PO QAM Omeprazole (Prilosec), 20 MG PO QAM Polyethylene Glycol 3350 (Miralax), 17 GM PO DAILYBL Prednisone Tab (Prednisone), 10 MG PO QAM Senna/Docusate Sod (Senokot S), 1 TAB PO every afternoon Sertraline (Zoloft), 25 MG PO DAILY Zafirlukast (Accolate), 20 MG PO BID Scheduled PRN Acetaminophen (Acetaminophen), 2 TAB PO Q6 PRN for Pain or Fever Albuterol Hfa (Ventolin Hfa), 2 PUFFS INH Q4H PRN for SOB/Wheezing Doxycycline (Monohydrate) (Doxycycline), 100 MG PO BID PRN for copd rescue kit Furosemide (Lasix), 20 MG PO BID PRN for edema Ipratropium-Albuterol (Duoneb), 1 TREATMENT INH Q4 PRN for SOB/Wheezing Ondansetron Hcl (Zofran), 4 MG PO Q6 PRN for Nausea Prednisone (Deltasone), 20 MG PO UD PRN for COPD rescue kit Tramadol HCl (Tramadol HCl), 50 MG PO Q6 PRN for back pain Review of Systems ROS per HPI, all other systems reviewed and negative Physical Exam Vital Signs Date Time Temp Pulse Resp B/P (MAP) Pulse Ox O2 Delivery O2 Flow Rate FiO2 04/25/17 09:47 78 22 131/61 93 04/25/17 09:32 93 Nasal Cannula 4.0 04/25/17 07:56 93 Nasal Cannula 4.0 04/25/17 07:55 69 20 130/64 87 Room Air 04/25/17 06:17 Room Air 04/25/17 05:54 36.7 75 24 136/67 92 Room Air General Appearance: WD/WN, no apparent distress Head: normocephalic, atraumatic Eyes: normal inspection, EOMI, sclerae normal ENT: hearing grossly normal, + pertinent finding (mucous membranes moist) Neck: supple, no JVD, trachea midline Respiratory/Chest: no respiratory distress, + pertinent finding (occasional scattered coarse breath sounds) Cardiovascular: regular rate, rhythm, no edema, normal peripheral pulses Abdomen/GI: normal bowel sounds, soft, + tenderness (LLQ), + distended Extremities/Musculoskelatal: normal inspection, no calf tenderness, normal capillary refill Neurologic/Psych: no motor/sensory deficits, alert, normal mood/affect, oriented x 3 Skin: normal color, warm/dry Diagnostics Laboratory Results Results Past 24 Hours Test 04/25/17 07:25 04/25/17 08:46 Range/Units White Blood Count 13.42 4.8-10.8 K/uL Red Blood Count 4.79 4.2-5.4 M/uL Hemoglobin 13.1 12.0-16.0 g/dL Hematocrit 41.2 37-47 % Mean Corpuscular Volume 86.0 80-100 fL Mean Corpuscular Hemoglobin 27.3 25-34 pg Mean Corpuscular Hemoglobin Concent 31.8 32-36 g/dl Platelet Count 236 130-400 K/uL Mean Platelet Volume 9.7 7.4-10.4 fL Neutrophils (%) (Auto) 82.5 % Lymphocytes (%) (Auto) 10.9 % Monocytes (%) (Auto) 5.7 % Eosinophils (%) (Auto) 0.3 % Basophils (%) (Auto) 0.1 % Neutrophils # (Auto) 11.08 1.4-6.5 K/uL Lymphocytes # (Auto) 1.46 1.2-3.4 K/uL Monocytes # (Auto) 0.76 0.11-0.59 K/uL Eosinophils # (Auto) 0.04 0-0.5 K/uL Basophils # (Auto) 0.01 0-0.2 K/uL RDW Standard Deviation 49.1 36.4-46.3 fL RDW Coefficient of Variation 15.5 11.5-14.5 % Immature Granulocyte % (Auto) 0.5 % Immature Granulocyte # (Auto) 0.07 0.00-0.02 K/uL Prothrombin Time 9.6 9.0-12.0 SECONDS Prothromb Time International Ratio 0.9 0.9-1.1 Activated Partial Thromboplast Time 22.6 21.0-31.0 SECONDS Partial Thromboplastin Ratio 0.9 Sodium Level 133 136-145 mmol/L Potassium Level 3.8 3.5-5.1 mmol/L Chloride Level 96 98-107 mmol/L Carbon Dioxide Level 29 21-32 mmol/L Anion Gap 8.0 3-11 mmol/L Blood Urea Nitrogen 23 7-18 mg/dl Creatinine 0.79 0.60-1.20 mg/dl Est Creatinine Clear Calc Drug Dose 49.9 ml/min Estimated GFR () 82.5 Estimated GFR (Non- 71.2 BUN/Creatinine Ratio 29.4 10-20 Random Glucose 104 70-99 mg/dl Calcium Level 9.3 8.5-10.1 mg/dl Total Bilirubin 0.6 0.2-1 mg/dl Direct Bilirubin 0.1 0-0.2 mg/dl Aspartate Amino Transf (AST/SGOT) 18 15-37 U/L Alanine Aminotransferase (ALT/SGPT) 27 12-78 U/L Alkaline Phosphatase 58 45-117 U/L Total Protein 6.4 6.4-8.2 gm/dl Albumin 2.9 3.4-5.0 gm/dl Lipase 85 73-393 U/L Lactic Acid Level 2.9 0.4-2.0 mmol/L Diagnostic Radiology CXR IMPRESSION: 1. Progressive pelvic atelectasis left base. 2. Stable chronic and postoperative change CT ABD/PELVIS IMPRESSION: 1. Partial distal small bowel obstruction of uncertain etiology. 2. An obstructing mass or lesion is not appreciated. The possibility of adhesions versus nonvisualized internal hernia. 3. Extensive chronic changes as noted with no additional acute abnormality. Impression Assessment and Plan PARTIAL SBO - admit to med/surg - patient presenting with nausea and abdominal pain; in the ED, CT abd/pelvis showing partial SBO - ? 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) however patient is on chronic steroids - no obvious signs of infection - check urine - IVF, follow lactic acid levels RECENT INFLUENZA A, COPD EXACERBATION - patient completing steroid taper and doxycycline tomorrow - patient reports improvement in respiratory symptoms, no wheezing on exam - resume chronic dose of prednisone 10mg daily on 04/27 - continue home inhalers PAROXYSMAL A-FIB - HR auscultates regular on exam - rate controlled on metoprolol and diltiazem - continue both - not anticoagulated due to fall risk DM - hgb a1c 8.5 2 - hold oral agents and utilize SSI while hospitalized - update hgb a1c in AM DVT PROPHYLAXIS - SQ heparin CODE STATUS - Patient is a full code as per my discussion with her. DISPO - In my clinical judgment this beneficiary meets acute admission criteria, established by [facility], that includes being hospitalized through two midnights. Advanced Directives Existing Living Will: Yes Existing Power of Front Desk Host: Yes VTE Prophylaxis VTE Risk Assessment Done? Y/N: Yes Risk Level: Moderate
[2017-04-25] MEDS: SODIUM CHLORIDE 0.9% 1000ML 1,000 ML IV SCH ×2 (11:13→20:22)
--- NOTE | 2017-04-25 11:16 | Surgery Consultation ---
Consultation Date of Consultation: Apr 25, 2017. Attending Physician: Dina Robles M.D. Reason for Consultation: Partial Small Bowel Obstruction History of Present Illness Megan is a pleasant 81 year old female who presented to the ED today with complaint of abdominal pain and nausea that started last night. A little over a week ago patient started Prednisone and doxycycline COPD rescue kit. She was seen in he ED on 04/21 and diagnosed with influenza A. She feels like her respiratory symptoms are improving. Last night she developed epigastric and LLQ abdominal pain. She had severe nausea. She denies vomiting. Had a normal bowel movement last night. Family member present in room states she watches her diet because of her history of bowel obstruction in the past. Takes Colace, Senokot , and Miralax daily. States due to the flu she has not been moving around a lot lately and not very active. No BRBPR or dark tarry stools. No fevers or chills. Patient had a CT abd/pelvis that showed a partial SBO. Labs show mild leukocytosis at 13.42 and hyponatremia. Lactic acid is 2.9. Vitals are stable. Past Medical/Surgical History Past Medical History: (1) Arthritis Status: Chronic (2) Bronchiectasis Status: Chronic (3) COPD, severe Status: Chronic (4) GERD (gastroesophageal reflux disease) Status: Chronic (5) History of pseudo obstruction of colon Status: Chronic (6) HTN (hypertension) Status: Chronic (7) Hyperlipidemia Permanent Comment: statin intolerance Status: Chronic (8) Nocturnal hypoxemia Status: Chronic (9) Paroxysmal a-fib Status: Chronic (10) Pulmonary hypertension Status: Chronic (11) SBO (small bowel obstruction) Status: Chronic (12) Spinal stenosis Status: Chronic Past Surgical History: (1) H/O hernia repair Status: Chronic (2) H/O: hysterectomy Status: Chronic (3) History of cataract surgery Status: Chronic (4) History of cholecystectomy Status: Chronic (5) S/P lobectomy of lung Family History Diabetes mellitus MOTHER FH: CHF (congestive heart failure) MOTHER Social History Smoking Status: Never Smoker Alcohol Use: none Housing Status: lives with significant other Allergies Coded Allergies: Ciprofloxacin (Verified Allergy, Intermediate, hives, itching, 04/25/17) Amoxicillin (Verified Allergy, Mild, itching,TOLERATING ZOSYN 01/04/14, 04/25) Clavulanic Acid (Verified Allergy, Mild, ITCHING,TOLERATING ZOSYN 01/04/14 , 04/25/17) Alendronate (Verified Adverse Reaction, Unknown, feet and hand pain, ) Levofloxacin (Verified Adverse Reaction, Unknown, muscle pain, 04/25/17) Home Medications Scheduled Aspirin (Aspirin Ec), 81 MG PO DAILY Baclofen (Lioresal), 10 MG PO AMPM Biotin (Biotin), 1,000 MCG PO DAILY Budesonide (Pulmicort Respules 0.5MG/2ML), 2 ML INH BID Chajtgt-Plxlnlgbm-Ytwk (Calcium Magnesium & Zinc), 1 TAB PO DAILY Cholecalciferol (Vitamin D3), 2,000 INTER.UNIT PO QAM Diltiazem Hcl Coated Beads (Cardizem Cd), 240 MG PO QAM Docusate Sodium (Colace), 100 MG PO BID Home O2 Therapy (Oxygen), 2 LITERS NA HS Metformin Hcl (Glucophage), 1,000 MG PO BID Metoprolol Succinate (Metoprolol Succinate ER), 50 MG PO QAM Omeprazole (Prilosec), 20 MG PO QAM Polyethylene Glycol 3350 (Miralax), 17 GM PO DAILYBL Prednisone Tab (Prednisone), 10 MG PO QAM Senna/Docusate Sod (Senokot S), 1 TAB PO every afternoon Sertraline (Zoloft), 25 MG PO DAILY Zafirlukast (Accolate), 20 MG PO BID Scheduled PRN Acetaminophen (Acetaminophen), 2 TAB PO Q6 PRN for Pain or Fever Albuterol Hfa (Ventolin Hfa), 2 PUFFS INH Q4H PRN for SOB/Wheezing Doxycycline (Monohydrate) (Doxycycline), 100 MG PO BID PRN for copd rescue kit Furosemide (Lasix), 20 MG PO BID PRN for edema Ipratropium-Albuterol (Duoneb), 1 TREATMENT INH Q4 PRN for SOB/Wheezing Ondansetron Hcl (Zofran), 4 MG PO Q6 PRN for Nausea Prednisone (Deltasone), 20 MG PO UD PRN for COPD rescue kit Tramadol HCl (Tramadol HCl), 50 MG PO Q6 PRN for back pain Current Inpatient Medications Current Inpatient Medications Medications (Trade) Dose Ordered Sig/Toor Route Start Time Stop Time Status Last Admin Dose Admin Heparin Sodium (Porcine) (Heparin Sq 5000 Unit/0.5ml) 5,000 unit Q8H SQ 04/25/17 14:00 05/25/17 13:59 Acetaminophen (Tylenol Tab) 650 mg Q4H PRN PO 04/25/17 09:30 05/25/17 09:29 Ondansetron HCl (Zofran Inj) 4 mg Q6H PRN IV 04/25/17 09:30 05/25/17 09:29 Sodium Chloride 1,000 ml @ 100 mls/hr Q10H IV 04/25/17 09:45 05/25/17 09:44 Insulin Aspart (novoLOG ASPART) SLIDING SCALE If C... ACHS SC 04/25/17 11:00 05/25/17 10:59 UNV Glucose (Glucose 40% Gel) 15-30 GRAMS 15 GRAMS... UD PRN PO 04/25/17 09:45 05/25/17 09:44 Glucose (Glucose Chew Tab) 4-8 Tablets 4 Tabl... UD PRN PO 04/25/17 09:45 05/25/17 09:44 Dextrose (Dextrose 50% 50ML Syringe) 25-50ML OF 50% DW IV FOR... UD PRN IV 04/25/17 09:45 05/25/17 09:44 Glucagon (Glucagon Inj) 1 mg UD PRN SQ 04/25/17 09:45 05/25/17 09:44 Prednisone (PredniSONE TAB) 20 mg DAILY PO 04/26/17 09:00 04/26/17 09:01 UNV Doxycycline Hyclate (Vibramycin Cap) 100 mg BID PO 04/25/17 21:00 04/26/17 21:01 UNV Aspirin (Ecotrin Tab) 81 mg DAILY PO 04/26/17 09:00 05/26/17 08:59 UNV Baclofen (Lioresal Tab) 10 mg BID PO 04/25/17 21:00 05/25/17 20:59 UNV Budesonide (Pulmicort Respules 0.5MG/ 2ML Neb Soln) 1 mg BID INH 04/25/17 21:00 05/25/17 20:59 UNV Diltiazem HCl (Cardizem Cd Cap) 240 mg QAM PO 04/26/17 09:00 05/26/17 08:59 UNV Albuterol/ Ipratropium (Duoneb) 1 ml Q4 PRN INH 04/25/17 10:15 05/25/17 10:14 UNV Metoprolol Succinate (Toprol Xl Tab) 50 mg QAM PO 04/26/17 09:00 05/26/17 08:59 UNV Prednisone (PredniSONE TAB) 10 mg QAM PO 04/27/17 09:00 05/27/17 08:59 UNV Sertraline HCl (Zoloft Tab) 25 mg DAILY PO 04/26/17 09:00 05/26/17 08:59 UNV Tramadol HCl (Ultram Tab) 50 mg Q6 PRN PO 04/25/17 10:15 05/25/17 10:14 UNV Non-Formulary Medication (Ynxmmyq-Erufjsdfx-Ianv (Calcium Magnesium & Zinc)) 1 tab DAILY PO 04/26/17 09:00 05/26/17 08:59 UNV Non-Formulary Medication (Cholecalciferol (Vitamin D3)) 2,000 inter.unit QAM PO 04/26/17 09:00 05/26/17 08:59 UNV Non-Formulary Medication (Omeprazole (Prilosec)) 20 mg QAM PO 04/26/17 09:00 05/26/17 08:59 UNV Non-Formulary Medication (Zafirlukast (Accolate)) 20 mg BID PO 04/25/17 21:00 05/25/17 20:59 UNV Docusate Sodium (coLACE CAP) 100 mg BID PO 04/25/17 21:00 05/25/17 20:59 UNV Review of Systems Constitutional: No fever, No chills, No sweats Respiratory: + problem reported (breathing has improved since last week), No wheezing Abdomen: + pain, + nausea, No vomiting, No diarrhea, No GI bleeding Genitourinary - Female: No dysuria Physical Exam Date Time Temp Pulse Resp B/P (MAP) Pulse Ox O2 Delivery O2 Flow Rate FiO2 04/25/17 10:30 37.0 74 22 130/67 (88) 94 Room Air 04/25/17 09:47 78 22 131/61 93 04/25/17 09:32 93 Nasal Cannula 4.0 04/25/17 07:56 93 Nasal Cannula 4.0 04/25/17 07:55 69 20 130/64 87 Room Air 04/25/17 06:17 Room Air 04/25/17 05:54 36.7 75 24 136/67 92 Room Air General Appearance: WD/WN, no apparent distress Head: normocephalic, atraumatic Eyes: sclerae normal ENT: hearing grossly normal Neck: trachea midline Respiratory/Chest: lungs clear, normal breath sounds, no respiratory distress, no accessory muscle use Cardiovascular: regular rate, rhythm, no murmur Abdomen/GI: soft, no organomegaly, no pulsatile mass, + tenderness (mild tenderness generalized, no peritonitis, rigidity, or guarding.), + distended, + pertinent finding (There is a large bulge of the lower central abdomen at site of prior hernia repair, ) Back: normal inspection Extremities/Musculoskelatal: normal inspection, no pedal edema Neurologic/Psych: alert, normal mood/affect, oriented x 3 Skin: normal color, warm/dry, no rash Laboratory Results Last 24 Hours Test 04/25/17 07:25 04/25/17 08:46 White Blood Count 13.42 K/uL Red Blood Count 4.79 M/uL Hemoglobin 13.1 g/dL Hematocrit 41.2 % Mean Corpuscular Volume 86.0 fL Mean Corpuscular Hemoglobin 27.3 pg Mean Corpuscular Hemoglobin Concent 31.8 g/dl Platelet Count 236 K/uL Mean Platelet Volume 9.7 fL Neutrophils (%) (Auto) 82.5 % Lymphocytes (%) (Auto) 10.9 % Monocytes (%) (Auto) 5.7 % Eosinophils (%) (Auto) 0.3 % Basophils (%) (Auto) 0.1 % Neutrophils # (Auto) 11.08 K/uL Lymphocytes # (Auto) 1.46 K/uL Monocytes # (Auto) 0.76 K/uL Eosinophils # (Auto) 0.04 K/uL Basophils # (Auto) 0.01 K/uL RDW Standard Deviation 49.1 fL RDW Coefficient of Variation 15.5 % Immature Granulocyte % (Auto) 0.5 % Immature Granulocyte # (Auto) 0.07 K/uL Prothrombin Time 9.6 SECONDS Prothromb Time International Ratio 0.9 Activated Partial Thromboplast Time 22.6 SECONDS Partial Thromboplastin Ratio 0.9 Sodium Level 133 mmol/L Potassium Level 3.8 mmol/L Chloride Level 96 mmol/L Carbon Dioxide Level 29 mmol/L Anion Gap 8.0 mmol/L Blood Urea Nitrogen 23 mg/dl Creatinine 0.79 mg/dl Est Creatinine Clear Calc Drug Dose 49.9 ml/min Estimated GFR () 82.5 Estimated GFR (Non- 71.2 BUN/Creatinine Ratio 29.4 Random Glucose 104 mg/dl Calcium Level 9.3 mg/dl Total Bilirubin 0.6 mg/dl Direct Bilirubin 0.1 mg/dl Aspartate Amino Transf (AST/SGOT) 18 U/L Alanine Aminotransferase (ALT/SGPT) 27 U/L Alkaline Phosphatase 58 U/L Total Protein 6.4 gm/dl Albumin 2.9 gm/dl Lipase 85 U/L Lactic Acid Level 2.9 mmol/L CXR 04/25/2017 IMPRESSION: 1. Progressive pelvic atelectasis left base. 2. Stable chronic and postoperative change CT abd and pelvis without contrast IMPRESSION: 1. Partial distal small bowel obstruction of uncertain etiology. 2. An obstructing mass or lesion is not appreciated. The possibility of adhesions versus nonvisualized internal hernia. 3. Extensive chronic changes as noted with no additional acute abnormality. Assessment & Plan 81 year-old female who presented to emergency room with a few hour history of abdominal pain and nausea. CT scan showing signs of partial small bowel obstruction. History of previous bowel obstruction and major abdominal hernia repair with mesh. Abdomen is soft, distended with large central bulge of lower abdomen at site of hernia repair. No evidence of hernia on CT scan, most likely abdominal wall laxity due to size of hernia and type of repair. Lactic acid elevated at 2.9 however vitals stable and abdomen soft without any peritonitis. Plan: No acute surgical intervention required at this time Would recommend conservative management: Iv fluids, IV pain medication as needed , IV Zofran as needed, and NPO Would continue Colace but hold laxatives until passing flatus and more bowel function Repeat lactic acid this afternoon Repeat am labs (cbc, bmp) Continue medical management will follow Dr. Brantley has seen and examined patient, agrees with above.
[2017-04-25] MEDS ORDERED: NURSING VERBAL MED ORDER ONE ×2 (11:30→18:30)
[2017-04-25] MEDS: INSULIN ASPART 100 UNITS/ML 3 ML PEN SC SCH ×2 (12:00→18:00)
[2017-04-25] MEDS: HEPARIN SOD 5000 UNIT/0.5 ML CARP SQ SCH ×2 (14:08→21:51)
--- NOTE | 2017-04-25 15:02 | DIAGNOSTIC IMAGING REPORT ---
ABDOMEN 2 VIEWS CLINICAL HISTORY: Generalized abdominal pain. Small bowel obstruction. FINDINGS: Supine and decubitus abdominal radiographs are correlated with abdominal CT performed the same day 04/25/2017. There is evidence of persistent small bowel obstruction. Distended and gas-filled loops of small bowel measure up to 5.3 cm in diameter. Fecal retention is noted in the colon. No evidence of intraperitoneal free air is seen. Cholecystectomy clips are identified. 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 A large calcification at the level of the right hemidiaphragm is unchanged and likely chronic. The Skeletal structures are osteopenic. Moderate lumbar spondylosis and scoliosis is observed. IMPRESSION: 1. Persistent small bowel obstruction. 2. No intraperitoneal free air is seen. 3. Additional findings as above. Electronically signed by: Nolan Rudolph M.D. 04/25/2017 3:01 PM Dictated Date/Time: 04/25/2017 2:59 PM
[2017-04-25 15:25] VITALS: BP 143/63; PULSE 87; TEMP 36.4; O2SAT 93
[2017-04-25] MEDS ORDERED: BISACODYL 10 MG SUPP PR ONE (16:00)
[2017-04-25] MEDS: CLINDAMYCIN IV 600 MG in DEXTROSE 5% 50ML 50 ML IV SCH (16:34)
--- NOTE | 2017-04-25 16:54 | Surgery Progress Note ---
Surgery Progress Note Date of Service Apr 25, 2017. Subjective + feeling well pt feels better after NG tube in, pt denies nausea, no vomiting, NG tube function well, Objective Vital Signs: Date Time Temp Pulse Resp B/P (MAP) Pulse Ox O2 Delivery O2 Flow Rate FiO2 04/25/17 15:25 36.4 87 20 143/63 (89) 93 Nasal Cannula 3.0 04/25/17 11:00 Nasal Cannula 3.0 04/25/17 10:30 37.0 74 22 130/67 (88) 94 Nasal Cannula 3.0 04/25/17 09:47 78 22 131/61 93 04/25/17 09:32 93 Nasal Cannula 4.0 04/25/17 07:56 93 Nasal Cannula 4.0 04/25/17 07:55 69 20 130/64 87 Room Air 04/25/17 06:17 Room Air 04/25/17 05:54 36.7 75 24 136/67 92 Room Air General Appearance: WD/WN, no apparent distress Head: normocephalic Neck: supple, no JVD Respiratory/Chest: chest non-tender, lungs clear, normal breath sounds Cardiovascular: regular rate, rhythm, no edema, no gallop, no JVD, no murmur Abdomen: normal bowel sounds, non tender, non distended, soft, no organomegaly Extremities: normal range of motion, non-tender, normal inspection Laboratory Results: Results Past 24 Hours Test 04/25/17 07:25 04/25/17 08:46 04/25/17 15:03 04/25/17 15:50 Range/Units White Blood Count 13.42 4.8-10.8 K/uL Red Blood Count 4.79 4.2-5.4 M/uL Hemoglobin 13.1 12.0-16.0 g/dL Hematocrit 41.2 37-47 % Mean Corpuscular Volume 86.0 80-100 fL Mean Corpuscular Hemoglobin 27.3 25-34 pg Mean Corpuscular Hemoglobin Concent 31.8 32-36 g/dl Platelet Count 236 130-400 K/uL Mean Platelet Volume 9.7 7.4-10.4 fL Neutrophils (%) (Auto) 82.5 % Lymphocytes (%) (Auto) 10.9 % Monocytes (%) (Auto) 5.7 % Eosinophils (%) (Auto) 0.3 % Basophils (%) (Auto) 0.1 % Neutrophils # (Auto) 11.08 1.4-6.5 K/uL Lymphocytes # (Auto) 1.46 1.2-3.4 K/uL Monocytes # (Auto) 0.76 0.11-0.59 K/uL Eosinophils # (Auto) 0.04 0-0.5 K/uL Basophils # (Auto) 0.01 0-0.2 K/uL RDW Standard Deviation 49.1 36.4-46.3 fL RDW Coefficient of Variation 15.5 11.5-14.5 % Immature Granulocyte % (Auto) 0.5 % Immature Granulocyte # (Auto) 0.07 0.00-0.02 K/uL Prothrombin Time 9.6 9.0-12.0 SECONDS Prothromb Time International Ratio 0.9 0.9-1.1 Activated Partial Thromboplast Time 22.6 21.0-31.0 SECONDS Partial Thromboplastin Ratio 0.9 Sodium Level 133 136-145 mmol/L Potassium Level 3.8 3.5-5.1 mmol/L Chloride Level 96 98-107 mmol/L Carbon Dioxide Level 29 21-32 mmol/L Anion Gap 8.0 3-11 mmol/L Blood Urea Nitrogen 23 7-18 mg/dl Creatinine 0.79 0.60-1.20 mg/dl Est Creatinine Clear Calc Drug Dose 49.9 ml/min Estimated GFR () 82.5 Estimated GFR (Non- 71.2 BUN/Creatinine Ratio 29.4 10-20 Random Glucose 104 70-99 mg/dl Calcium Level 9.3 8.5-10.1 mg/dl Total Bilirubin 0.6 0.2-1 mg/dl Direct Bilirubin 0.1 0-0.2 mg/dl Aspartate Amino Transf (AST/SGOT) 18 15-37 U/L Alanine Aminotransferase (ALT/SGPT) 27 12-78 U/L Alkaline Phosphatase 58 45-117 U/L Total Protein 6.4 6.4-8.2 gm/dl Albumin 2.9 3.4-5.0 gm/dl Lipase 85 73-393 U/L Lactic Acid Level 2.9 1.9 0.4-2.0 mmol/L Urine Color YELLOW Urine Appearance CLEAR CLEAR Urine pH 7.0 4.5-7.5 Urine Specific [place] 1.018 1.000-1.030 Urine Protein NEG NEG Urine Glucose (UA) NEG NEG Urine Ketones NEG NEG Urine Occult Blood NEG NEG Urine Nitrite NEG NEG Urine Bilirubin NEG NEG Urine Urobilinogen NEG NEG Urine Leukocyte Esterase TRACE NEG Urine WBC (Auto) 1-5 0-5 /hpf Urine RBC (Auto) 0-4 0-4 /hpf Urine Hyaline Casts (Auto) 1-5 0-5 /lpf Urine Epithelial Cells (Auto) 10-20 0-5 /lpf Urine Bacteria (Auto) NEG NEG Microbiology Results 04/25/17 Urine Culture, Received Pending Assessment & Plan lactic acid 1.9 IMP: SBO Plan repeat labs in AM, will F/U
[2017-04-25] MEDS: METRONIDAZOLE / NSS 500 MG in PREMIXED NSS 100 ML IV SCH (18:28)
[2017-04-25] MEDS: BUDESONIDE 0.5 MG/2 ML VIAL (PULMICORT) INH SCH (19:53)
[2017-04-25 19:58] VITALS: PULSE 84; O2SAT 92
[2017-04-25] MEDS: DOCUSATE SODIUM 100 MG CAP PO SCH (21:00)
[2017-04-25] MEDS: [UNRECOGNIZED DRUG - OTHER] EXT PRN (21:35)
[2017-04-25] MEDS: BACLOFEN 10 MG TAB PO SCH (21:35)
[2017-04-25] MEDS: LIDO EXT PRN (21:35)
[2017-04-25] MEDS: DOXYCYCLINE HYCLATE 100 MG CAP PO SCH (21:35)
[2017-04-25] MEDS: LAMO EXT PRN (21:35)
[2017-04-25] MEDS: MoRPHine SULFATE 2 MG/ML CARP IV PRN (21:54)
[2017-04-25 22:52] VITALS: BP 112/63; PULSE 87; TEMP 37.1; O2SAT 95
[2017-04-26] VITALS (11 sets, daily range): BP systolic 89–134; BP diastolic 50–71; PULSE 60–155; TEMP 36.5–37; O2SAT 6–99
[2017-04-26] MEDS: CLINDAMYCIN IV 600 MG in DEXTROSE 5% 50ML 50 ML IV SCH ×3 (00:33→16:38)
[2017-04-26] MEDS ORDERED: LEVALBUTEROL/IPRATROPIUM NEB INH STA (01:14)
[2017-04-26] MEDS ORDERED: HALOPERIDOL LACTATE 5 MG/ML 1 ML VIAL IM PRN (01:15)
[2017-04-26] MEDS ORDERED: LEVALBUTEROL/IPRATROPIUM NEB INH PRN (01:15)
[2017-04-26] MEDS ORDERED: HALOPERIDOL 1 MG TAB PO PRN (01:15)
[2017-04-26] MEDS ORDERED: METOPROLOL SUCC 50MG EXT REL TAB PO ONE (01:18)
[2017-04-26 01:47] LABS: BASO % 0.2 %; BASO ABS # 0.02 K/uL (0-0.2); EOS % 0.4 %; EOS ABS # 0.05 K/uL (0-0.5); HEMATOCRIT 37.4 % (37-47); HEMOGLOBIN 11.7 g/dL (12.0-16.0); IG# 0.05 K/uL (0.00-0.02); LYMPH % 9.2 %; LYMPH ABS # 1.08 K/uL (1.2-3.4); MEAN CELL VOLUME 86.8 fL (80-100); MEAN CORPUSCULAR HEMOGLOBIN 27.1 pg (25-34); MEAN CORPUSCULAR HGB CONC 31.3 g/dl (32-36); MEAN PLATELET VOLUME 9.3 fL (7.4-10.4); MONO % 6.5 %; MONO ABS # 0.76 K/uL (0.11-0.59); NEUT % 83.3 %; NEUT ABS # 9.72 K/uL (1.4-6.5); PLATELET COUNT 152 K/uL (130-400); RED CELL DISTRIBUTION WIDTH CV 15.5 % (11.5-14.5); RED CELL DISTRIBUTION WIDTH SD 49.9 fL (36.4-46.3); WHITE BLOOD COUNT 11.68 K/uL (4.8-10.8)
[2017-04-26] MEDS ORDERED: FUROSEMIDE INJ 20 MG in SYRINGE 0 ML IV STA (01:49)
--- NOTE | 2017-04-26 01:50 | Progress Note ---
Internal Med Progress Note Date of Service: Apr 26, 2017. Provider Documentation: SUBJECTIVE: Made aware by RN of increasing patient agitation/disorientation Tachycardia, respiratory distress noted SBP 100-110s as per RN Patient denies chest pain, shortness of breath. Usual cough symptoms as per RN OBJECTIVE: Vital Signs-as noted below Exam: General-min resp distress, disoriented, anxiousl HEENT -pale palp conjunctivae, no ptosis, dry buccal mucosa, nasal cannula noted Neck-supple, no tenderness Lungs-no tenderness , expiratory wheezes Heart-tachycardic, irregular Abdomen-some distention, NT Extremities-min LE swelling, no tenderness NE disoriented CXR as per my interpretation congestion EKG as per my interpretation rate 160, AF, T-wave inversion lateral leads ASSESSMENT & PLAN: Acute on chronic hypoxemic resp failure secondary to pulmonary congestion Recurrent A. fib, rate uncontrolled (home anti-coagulation on hold secondary to fall risk as per records) Delirium Supplemental O2 Baseline ABG Stat Lasix, hold maintenance IV fluid, nebs stat Facilitate home beta dary, calcium channel blockers Check lytes Hold baclofen/narcotics for sedation confusion Haldol when necessary May need transfer to PCU if heart rate controlled with above intervention to facilitate administration of parenteral chronotropic agents and/or progressive respiratory distress. Will relay to AM provider. Vital Signs: Date Time Temp Pulse Resp B/P (MAP) Pulse Ox O2 Delivery O2 Flow Rate FiO2 04/26/17 08:01 36.5 100 16 134/69 (90) 96 04/26/17 08:00 Oxymask 4.0 04/26/17 07:32 110 14 99 Mask 4.0 04/26/17 06:26 122 111/61 04/26/17 05:34 137 108/71 (83) 98 Oxymask 4.0 04/26/17 05:32 143 04/26/17 05:20 36.8 144 30 94 6.0 04/26/17 04:05 144 89/50 (63) 94 Oxymask 6.0 111/65 (80) 04/26/17 03:30 155 30 6 Oxymask 92 04/26/17 00:30 Room Air 04/25/17 22:52 37.1 87 24 112/63 (79) 95 Nasal Cannula 4.0 04/25/17 19:58 84 14 92 Nasal Cannula 3.0 04/25/17 15:30 Nasal Cannula 3.0 04/25/17 15:25 36.4 87 20 143/63 (89) 93 Nasal Cannula 3.0 Lab Results: Results Past 24 Hours Test 04/25/17 12:11 04/25/17 15:03 04/25/17 15:50 04/25/17 18:23 Range/Units Bedside Glucose 100 122 70-90 mg/dl Lactic Acid Level 1.9 0.4-2.0 mmol/L Urine Color YELLOW Urine Appearance CLEAR CLEAR Urine pH 7.0 4.5-7.5 Urine Specific [place] 1.018 1.000-1.030 Urine Protein NEG NEG Urine Glucose (UA) NEG NEG Urine Ketones NEG NEG Urine Occult Blood NEG NEG Urine Nitrite NEG NEG Urine Bilirubin NEG NEG Urine Urobilinogen NEG NEG Urine Leukocyte Esterase TRACE NEG Urine WBC (Auto) 1-5 0-5 /hpf Urine RBC (Auto) 0-4 0-4 /hpf Urine Hyaline Casts (Auto) 1-5 0-5 /lpf Urine Epithelial Cells (Auto) 10-20 0-5 /lpf Urine Bacteria (Auto) NEG NEG Test 04/26/17 00:03 04/26/17 01:37 04/26/17 04:54 04/26/17 06:06 Range/Units Bedside Glucose 99 128 70-90 mg/dl White Blood Count 11.68 4.8-10.8 K/uL Red Blood Count 4.31 4.2-5.4 M/uL Hemoglobin 11.7 12.0-16.0 g/dL Hematocrit 37.4 37-47 % Mean Corpuscular Volume 86.8 80-100 fL Mean Corpuscular Hemoglobin 27.1 25-34 pg Mean Corpuscular Hemoglobin Concent 31.3 32-36 g/dl Platelet Count 152 130-400 K/uL Mean Platelet Volume 9.3 7.4-10.4 fL Neutrophils (%) (Auto) 83.3 % Lymphocytes (%) (Auto) 9.2 % Monocytes (%) (Auto) 6.5 % Eosinophils (%) (Auto) 0.4 % Basophils (%) (Auto) 0.2 % Neutrophils # (Auto) 9.72 1.4-6.5 K/uL Lymphocytes # (Auto) 1.08 1.2-3.4 K/uL Monocytes # (Auto) 0.76 0.11-0.59 K/uL Eosinophils # (Auto) 0.05 0-0.5 K/uL Basophils # (Auto) 0.02 0-0.2 K/uL RDW Standard Deviation 49.9 36.4-46.3 fL RDW Coefficient of Variation 15.5 11.5-14.5 % Immature Granulocyte % (Auto) 0.4 % Immature Granulocyte # (Auto) 0.05 0.00-0.02 K/uL Activated Partial Thromboplast Time 28.2 21.0-31.0 SECONDS Partial Thromboplastin Ratio 1.1 Arterial Blood pH 7.39 7.35-7.45 Arterial Blood Partial Pressure CO2 45 35-46 mmHg Arterial Blood Partial Pressure O2 57 80-95 mm/Hg Arterial Blood HCO3 27 19-24 mmol/L Arterial Blood Oxygen Saturation 85.8 90-95 % Arterial Blood Base Excess 1.8 -9-1.8 mEq/L Arterial Blood Gas Delivery 4 L Brien Test POS POS Sodium Level 135 135 136-145 mmol/L Potassium Level 3.5 3.6 3.5-5.1 mmol/L Chloride Level 100 97 98-107 mmol/L Carbon Dioxide Level 28 30 21-32 mmol/L Anion Gap 7.0 8.0 3-11 mmol/L Blood Urea Nitrogen 18 17 7-18 mg/dl Creatinine 0.62 0.68 0.60-1.20 mg/dl Est Creatinine Clear Calc Drug Dose 63.6 58.0 ml/min Estimated GFR () 99.4 96.4 Estimated GFR (Non- 85.8 83.2 BUN/Creatinine Ratio 28.9 24.6 10-20 Random Glucose 106 115 70-99 mg/dl Estimated Average Glucose 123 mg/dl Hemoglobin A1c 5.9 4.5-5.6 % Calcium Level 7.8 8.0 8.5-10.1 mg/dl Magnesium Level 1.5 1.8-2.4 mg/dl Thyroid Stimulating Hormone (TSH) 0.964 0.300-4.500 uIu/ml Troponin I 0.406 0-0.045 ng/ml Test 04/26/17 11:08 04/26/17 11:12 04/26/17 11:26 Range/Units Bedside Glucose 135 70-90 mg/dl Microbiology Results 04/25/17 Urine Culture, Received Pending
[2017-04-26] MEDS: METRONIDAZOLE / NSS 500 MG in PREMIXED NSS 100 ML IV SCH ×3 (01:59→18:10)
[2017-04-26 02:09] LABS: CALCIUM 7.8 mg/dl (8.5-10.1); CREATININE 0.62 mg/dl (0.60-1.20); POTASSIUM 3.5 mmol/L (3.5-5.1)
[2017-04-26 02:10] LABS: PTT PATIENT 28.2 SECONDS (21.0-31.0)
[2017-04-26] MEDS ORDERED: IPRATROPIUM BROMIDE NEB SOLN 0.02% 2.5 ML VIAL INH STA (02:14)
[2017-04-26] MEDS ORDERED: LEVALBUTEROL 1.25MG/0.5ML NEB INH STA (02:14)
[2017-04-26] MEDS ORDERED: FUROSEMIDE 40 MG/4 ML VIAL IV ONE (02:15)
[2017-04-26] MEDS ORDERED: POTASSIUM CHLORIDE 10 MEQ TABCR PO ONE ×2 (03:30→09:30)
[2017-04-26] MEDS: MAGNESIUM SULFATE 1GM / D5W 1 GM in PREMIXED IN D5W 100 ML IV SCH ×2 (03:56→05:14)
[2017-04-26] MEDS: LAMO EXT PRN (04:01)
[2017-04-26] MEDS: [UNRECOGNIZED DRUG - OTHER] EXT PRN (04:01)
[2017-04-26] MEDS: LIDO EXT PRN (04:01)
[2017-04-26] MEDS ORDERED: DILTIAZEM HCL 240 MG CAPCR PO ONE (04:19)
[2017-04-26] MEDS ORDERED: POTASSIUM CHLORIDE 10 MEQ TABCR PO STA (04:19)
[2017-04-26] MEDS ORDERED: DIGOXIN IV 250 MCG in SYRINGE 9 ML IV ONE (04:45)
[2017-04-26] MEDS: INSULIN ASPART 100 UNITS/ML 3 ML PEN SC SCH ×4 (06:00→18:05)
[2017-04-26] MEDS ORDERED: METOPROLOL TARTRATE 1 MG/ML VIAL IV. SCH (06:00)
[2017-04-26] MEDS: HEPARIN SOD 5000 UNIT/0.5 ML CARP SQ SCH ×3 (06:18→20:56)
[2017-04-26] MEDS ORDERED: METOPROLOL TARTRATE 1 MG/ML VIAL ONE (06:22)
--- NOTE | 2017-04-26 06:34 | DIAGNOSTIC IMAGING REPORT ---
CHEST ONE VIEW PORTABLE CLINICAL HISTORY: resp distress dyspnea COMPARISON STUDY: 04/25/2017 FINDINGS: Unchanging calcific and pleural effusion change right base. Trace pleural fluid left base with improving basilar atelectatic change. Tortuosity and ectasia thoracic aorta unchanged. Nasogastric tube within the stomach. Prominent pulmonary vasculature similar compared to the prior study. IMPRESSION: Improving left basilar atelectasis. Stable chronic and postoperative change right base. Stable pulmonary vascular congestion The above report was generated using voice recognition software. It may contain grammatical, syntax or spelling errors. Electronically signed by: Rojelio Sorto M.D. 04/26/2017 6:33 AM Dictated Date/Time: 04/26/2017 6:32 AM
[2017-04-26 06:36] LABS: HEMOGLOBIN A1C 5.9 % (4.5-5.6)
[2017-04-26] MEDS ORDERED: PANTOprazole INJ 40 MG in SYRINGE 0 ML IV ONE (06:45)
[2017-04-26] MEDS: BUDESONIDE 0.5 MG/2 ML VIAL (PULMICORT) INH SCH ×2 (07:32→20:40)
[2017-04-26] MEDS: POTASSIUM CHLR 10 MEQ / WTR 10 MEQ in PREMIXED WATER 100 ML IV SCH ×3 (07:33→09:48)
[2017-04-26] MEDS: ASPIRIN 81 MG ECTAB PO SCH (07:34)
[2017-04-26] MEDS: SERTRALINE HCL 50 MG TAB PO SCH (07:35)
[2017-04-26] MEDS: DOXYCYCLINE HYCLATE 100 MG CAP PO SCH ×2 (07:35→20:51)
[2017-04-26] MEDS: BACLOFEN 10 MG TAB PO SCH ×2 (07:35→20:47)
[2017-04-26] MEDS: DOCUSATE SODIUM 100 MG CAP PO SCH ×2 (07:48→20:46)
[2017-04-26] MEDS ORDERED: MAGNESIUM SULFATE 1GM / D5W 2 GM in PREMIXED IN D5W 100 ML IV ONE (08:30)
[2017-04-26] MEDS ORDERED: METOPROLOL SUCC 50MG EXT REL TAB PO SCH (09:00)
[2017-04-26] MEDS ORDERED: DILTIAZEM HCL 240 MG CAPCR PO SCH (09:00)
[2017-04-26] MEDS ORDERED: PANTOprazole SOD 40 MG TAB PO SCH (09:00)
[2017-04-26] MEDS ORDERED: CHOLECALCIFEROL 1000 INTER.UNIT TAB PO SCH (09:00)
[2017-04-26] MEDS ORDERED: MAGNESIUM SULFATE 1GM / D5W 1 GM in PREMIXED IN D5W 100 ML IV SCH (09:30)
[2017-04-26] MEDS ORDERED: METOPROLOL TARTRATE 25 MG TAB PO ONE (09:31)
[2017-04-26] MEDS: TRAMADOL HCL 50 MG TAB PO PRN (10:15)
--- NOTE | 2017-04-26 10:20 | Clinical Documentation Query ---
JATINDER Barry : CLINICAL DOCUMENTATION QUERY Patient is a 81 year old female admitted for evaluation and treatment of partial SBO. Provided with IVF bolus in the ED and was recieving continuous IVF thereafter. Additionally recieving repletion of electrolytes via IV as she is NPO. Patient developed atrial fibrillation with RVR and became anxious, restless, SOB, tachypneic, with increased oxygen demands. EKG performed, IV Lasix administered, O2 increased, transferred to telemetry, cardiology has been consulted. No provider documentation of this event exists. Please clarify as clinically appropriate. Thank you. In your clinical opinion is this patient being managed for: ( ) (Possible/Suspected) Acute diastolic CHF secondary to atrial fibrillation with RVR ( ) Not Agree ( ) Other explanation of clinical findings (Please Explain) ( ) Unable to determine (Please Define) ( ) Need to Discuss The medical record reflects the following clinical findings, treatment, and risk factors. Clinical Indicators: As above Treatment: EKG performed, IV Lasix administered, O2 increased, transferred to telemetry, cardiology has been consulted Risk Factors: Age, IVF administration Please clarify and document your clinical opinion in the progress notes and discharge summary. Terms such as "probable", "suspected", "likely", "questionable", "possible", or "still to be ruled out" are acceptable. IF IN AGREEMENT, YOU MUST DOCUMENT ABOVE DIAGNOSTIC STATEMENT IN DAILY PROGRESS NOTES AND DISCHARGE SUMMARY. This document is not part of the patient's record. Thank You, Russel Houston, NANCY [phone]
[2017-04-26 10:55] LABS: CREATININE 0.68 mg/dl (0.60-1.20); POTASSIUM 3.6 mmol/L (3.5-5.1)
--- NOTE | 2017-04-26 11:27 | DIAGNOSTIC IMAGING REPORT ---
KUB CLINICAL HISTORY: ?SBO obstruction COMPARISON STUDY: 04/25/2017 FINDINGS: Several air-filled minimally distended loops of small bowel in the left central abdominal region. Nasogastric tube within the mid stomach. Unchanging findings right lung base. No evidence for colonic distention. Unremarkable fecal load. IMPRESSION: Moderate left abdominal small bowel ileus with small bowel distention slightly improved compared to the prior study. 2. Interval placement of a nasogastric tube mid stomach. 3. Unchanging postoperative and chronic changes right lung base. The above report was generated using voice recognition software. It may contain grammatical, syntax or spelling errors. Electronically signed by: Rojelio Sorto M.D. 04/26/2017 11:26 AM Dictated Date/Time: 04/26/2017 11:24 AM
[2017-04-26] MEDS ORDERED: NURSING VERBAL MED ORDER ONE (11:30)
--- NOTE | 2017-04-26 11:46 | Surgery Progress Note ---
Surgery Progress Note Date of Service Apr 26, 2017. Subjective Post OP Day: HD # 1 "Not feeling good today" Having severe back pain, unable to lay still due to the pain (Has chronic back pain) Having some left sided abdominal pain, no nausea or vomiting. Had large loose bowel movement last evening. No blood. NGT placed yesterday with 200 cc output Patient transferred to Telemetry last evening given increased heart rate and onset of a-fib. Objective Vital Signs: Date Time Temp Pulse Resp B/P (MAP) Pulse Ox O2 Delivery O2 Flow Rate FiO2 04/26/17 08:01 36.5 100 16 134/69 (90) 96 04/26/17 08:00 Oxymask 4.0 04/26/17 07:32 110 14 99 Mask 4.0 04/26/17 06:26 122 111/61 04/26/17 05:34 137 108/71 (83) 98 Oxymask 4.0 04/26/17 05:32 143 04/26/17 05:20 36.8 144 30 94 6.0 04/26/17 04:05 144 89/50 (63) 94 Oxymask 6.0 111/65 (80) 04/26/17 03:30 155 30 6 Oxymask 92 04/26/17 00:30 Room Air 04/25/17 22:52 37.1 87 24 112/63 (79) 95 Nasal Cannula 4.0 04/25/17 19:58 84 14 92 Nasal Cannula 3.0 04/25/17 15:30 Nasal Cannula 3.0 04/25/17 15:25 36.4 87 20 143/63 (89) 93 Nasal Cannula 3.0 General Appearance: + mild distress, + thin Head: normocephalic, atraumatic Neck: trachea midline Respiratory/Chest: no respiratory distress, no accessory muscle use, + pertinent finding (oxygen mask present) Abdomen: soft, no organomegaly, no pulsatile mass, + distended, + tenderness ( in the left lower abdomen, no peritonitis, guarding, or rebound), + pertinent finding (patient has loss of domain of abdomen, complex hernia repair in past) Laboratory Results: Results Past 24 Hours Test 04/25/17 12:11 04/25/17 15:03 04/25/17 15:50 04/25/17 18:23 Range/Units Bedside Glucose 100 122 70-90 mg/dl Lactic Acid Level 1.9 0.4-2.0 mmol/L Urine Color YELLOW Urine Appearance CLEAR CLEAR Urine pH 7.0 4.5-7.5 Urine Specific [place] 1.018 1.000-1.030 Urine Protein NEG NEG Urine Glucose (UA) NEG NEG Urine Ketones NEG NEG Urine Occult Blood NEG NEG Urine Nitrite NEG NEG Urine Bilirubin NEG NEG Urine Urobilinogen NEG NEG Urine Leukocyte Esterase TRACE NEG Urine WBC (Auto) 1-5 0-5 /hpf Urine RBC (Auto) 0-4 0-4 /hpf Urine Hyaline Casts (Auto) 1-5 0-5 /lpf Urine Epithelial Cells (Auto) 10-20 0-5 /lpf Urine Bacteria (Auto) NEG NEG Test 04/26/17 00:03 04/26/17 01:37 04/26/17 04:54 04/26/17 06:06 Range/Units Bedside Glucose 99 128 70-90 mg/dl White Blood Count 11.68 4.8-10.8 K/uL Red Blood Count 4.31 4.2-5.4 M/uL Hemoglobin 11.7 12.0-16.0 g/dL Hematocrit 37.4 37-47 % Mean Corpuscular Volume 86.8 80-100 fL Mean Corpuscular Hemoglobin 27.1 25-34 pg Mean Corpuscular Hemoglobin Concent 31.3 32-36 g/dl Platelet Count 152 130-400 K/uL Mean Platelet Volume 9.3 7.4-10.4 fL Neutrophils (%) (Auto) 83.3 % Lymphocytes (%) (Auto) 9.2 % Monocytes (%) (Auto) 6.5 % Eosinophils (%) (Auto) 0.4 % Basophils (%) (Auto) 0.2 % Neutrophils # (Auto) 9.72 1.4-6.5 K/uL Lymphocytes # (Auto) 1.08 1.2-3.4 K/uL Monocytes # (Auto) 0.76 0.11-0.59 K/uL Eosinophils # (Auto) 0.05 0-0.5 K/uL Basophils # (Auto) 0.02 0-0.2 K/uL RDW Standard Deviation 49.9 36.4-46.3 fL RDW Coefficient of Variation 15.5 11.5-14.5 % Immature Granulocyte % (Auto) 0.4 % Immature Granulocyte # (Auto) 0.05 0.00-0.02 K/uL Activated Partial Thromboplast Time 28.2 21.0-31.0 SECONDS Partial Thromboplastin Ratio 1.1 Arterial Blood pH 7.39 7.35-7.45 Arterial Blood Partial Pressure CO2 45 35-46 mmHg Arterial Blood Partial Pressure O2 57 80-95 mm/Hg Arterial Blood HCO3 27 19-24 mmol/L Arterial Blood Oxygen Saturation 85.8 90-95 % Arterial Blood Base Excess 1.8 -9-1.8 mEq/L Arterial Blood Gas Delivery 4 L Brien Test POS POS Sodium Level 135 135 136-145 mmol/L Potassium Level 3.5 3.6 3.5-5.1 mmol/L Chloride Level 100 97 98-107 mmol/L Carbon Dioxide Level 28 30 21-32 mmol/L Anion Gap 7.0 8.0 3-11 mmol/L Blood Urea Nitrogen 18 17 7-18 mg/dl Creatinine 0.62 0.68 0.60-1.20 mg/dl Est Creatinine Clear Calc Drug Dose 63.6 58.0 ml/min Estimated GFR () 99.4 96.4 Estimated GFR (Non- 85.8 83.2 BUN/Creatinine Ratio 28.9 24.6 10-20 Random Glucose 106 115 70-99 mg/dl Estimated Average Glucose 123 mg/dl Hemoglobin A1c 5.9 4.5-5.6 % Calcium Level 7.8 8.0 8.5-10.1 mg/dl Magnesium Level 1.5 1.8-2.4 mg/dl Thyroid Stimulating Hormone (TSH) 0.964 0.300-4.500 uIu/ml Troponin I 0.406 0-0.045 ng/ml Test 04/26/17 11:08 04/26/17 11:12 Range/Units Microbiology Results 04/25/17 Urine Culture, Received Pending Diagnostic Interpretation: KUB CLINICAL HISTORY: ?SBO obstruction COMPARISON STUDY: 04/25/2017 FINDINGS: Several air-filled minimally distended loops of small bowel in the left central abdominal region. Nasogastric tube within the mid stomach. Unchanging findings right lung base. No evidence for colonic distention. Unremarkable fecal load. IMPRESSION: Moderate left abdominal small bowel ileus with small bowel distention slightly improved compared to the prior study. 2. Interval placement of a nasogastric tube mid stomach. 3. Unchanging postoperative and chronic changes right lung base. Assessment & Plan Partial SBO - afebrile, vitals stable, has converted back to NSR today - abdomen distended, loss of domain from previous hernia repair, soft, tenderness in LLQ - NGT with 200 cc brown output - KUB this morning shows several air-filled minimally distended loops of small bowel in the left central abdominal region, slightly improved compared to yesterdays films - awaiting repeat lactic acid this am, repeat lactic acid yesterday afternoon normal at 1.9 Plan: No acute surgical intervention required Would continue conservative management: NPO, IV fluids, IV pain management as needed, IV Zofran If passes more gas or has another bowel movement may d/c NGT and start clears Continue back pain management with PO Toradol Continue medical management [place] surgeons to cover call this weekend Dr. Brantley has seen and examined patient, agrees with above
[2017-04-26 11:53] LABS: CALCIUM 7.7 mg/dl (8.5-10.1); CREATININE 0.59 mg/dl (0.60-1.20); POTASSIUM 4.3 mmol/L (3.5-5.1)
--- NOTE | 2017-04-26 14:11 | CARDIOLOGY CONSULTATION ---
DATE OF CONSULTATION: 04/26/2017 REASON FOR CONSULTATION: Atrial fibrillation. REFERRING PHYSICIAN: Dr. Dina Robles. CHIEF COMPLAINT ON ADMISSION: Abdominal pain and nausea. HISTORY OF PRESENT ILLNESS: Ms. Jin is a 81-year-old female, who presented to the Emergency Department with abdominal pain and nausea. CT demonstrated small bowel obstruction. She was seen by surgery overnight. Conservative measures recommended. Recently diagnosed with influenza on April 21. Her respiratory symptoms have improved. Currently, she complains of low back pain as well as left lower quadrant abdominal pain. NG tube is in place. She is receiving medications via the tube. No bright red blood per rectum. No melena or hematochezia. The patient denies nausea currently. She is unaware of her heart rate. It appears she lapped into rapid atrial fibrillation overnight. The patient was treated with intravenous digoxin, oral Toprol-XL, as well as her oral dose of diltiazem CD. Denies chest pain or shortness of breath. No orthopnea or PND. She carries a history of atrial fibrillation in the setting of pneumonia in 2011. She was maintained on anticoagulation with Coumadin up until early 2016, which was discontinued due to recurrent falls. Offers no other complaints at this time; however, is somewhat confused secondary to administration of pain medications. REVIEW OF SYSTEMS: The pertinent positives noted above. A comprehensive 10-system review is otherwise negative. PAST MEDICAL HISTORY: 1. Paroxysmal atrial fibrillation in October 2013 in the setting of community-acquired pneumonia. 2. Pulmonary hypertension per 2D echocardiogram criteria. 3. Spinal stenosis. 4. Osteoporosis. 5. Chronic obstructive pulmonary disease -- severe. 6. Paroxysmal atrial fibrillation. 7. Chronic kidney disease. 8. Hypertension. 9. Bowel obstruction. 10. Dyslipidemia. 11. Bronchiectasis. 12. Urticaria of unclear etiology. PAST SURGICAL HISTORY: 1. Colonoscopy with biopsy. 2. Cataract surgery. 3. Right-sided lung lobectomy. 4. Total abdominal hysterectomy with removal of tubes secondary to fibroids. 5. hernia repair. FAMILY HISTORY: Negative for premature CAD or sudden cardiac . There is a family history of CHF and emphysema later in life. SOCIAL HISTORY: The patient is recently . She lives independently. She is retired. Lifelong nonsmoker. No alcohol use. ALLERGIES: 1. ALENDRONATE. 2. AUGMENTIN. 3. CIPROFLOXACIN. 4. LEVOFLOXACIN. OUTPATIENT MEDICATIONS: 1. Baclofen 10 mg twice daily. 2. Tramadol 50 mg every 6 hours as needed for pain. 3. Furosemide 20 mg twice daily as needed for edema. 4. Doxycycline rescue kit. 5. Prednisone 10 mg daily. 6. Zoloft 25 mg daily. 7. Prilosec 20 mg daily. 8. Ventolin inhaler daily. 9. Metformin 1000 mg twice daily. 10. Pulmicort. 11. Cardizem-CD 240 mg daily. 12. Aspirin 81 mg daily. 13. Accolate 20 mg twice daily. 14. Toprol-XL 50 mg daily. 15. Senokot daily. 16. DuoNeb every 6 hours. 17. Zofran 4 mg every 8 hours as needed. 18. Colace 100 mg twice daily. 19. Supplemental oxygen 2 liters nasal cannula. ECG performed at 01:00 a.m. demonstrates atrial fibrillation with rapid ventricular response with left axis deviation, age indeterminate inferior and anteroseptal infarcts. Chest x-ray on admission, progressive ____ at the left base, stable chronic and postoperative change. CT of the abdomen and pelvis, partial distal small bowel obstruction of uncertain etiology. TELEMETRY: Atrial fibrillation with heart rate ranging from 110-130 beats per minute. LABORATORY DATA: White blood cell count 11.68, hemoglobin is 11.7, and platelet count is 152. AB.39/45/57/27/86 degrees on 4 liters. Troponin 0.406. PHYSICAL EXAMINATION: VITAL SIGNS: Temperature is 36.5 degrees centigrade, pulse is 110 beats per minute and irregular, respiratory rate 16 breaths per minute, blood pressure 134/69 and SaO2 is 96% on 4 liters. GENERAL: NAD, awake, alert and oriented x3. HEENT: Her mucous membranes are moist. No scleral icterus. Conjunctivae are pink. NECK: Supple without JVD or HJR. HEART: Irregular and tachycardic with a normal S1 and S2. No murmur appreciated. LUNGS: Demonstrate scattered rhonchi without wheezes or rales. ABDOMEN: Mildly distended and diffusely tender. There is no rebound or guarding. Bowel sounds are not appreciated. EXTREMITIES: Warm and dry without clubbing, cyanosis, or edema. NEUROLOGIC: Demonstrates no focal motor deficit. FINAL IMPRESSION: 1. Paroxysmal atrial fibrillation secondary to acute small bowel obstruction, electrolyte derangement, and volume depletion. The patient's CHADS2-VASc score equals 3. Coumadin discontinued earlier in 2017 due to recurrent falls. 2. Hypertension -- controlled. 3. Severe chronic obstructive pulmonary disease on home O2. 4. Dyslipidemia with statin intolerance. 5. History of preserved LV systolic function with pulmonary hypertension per most recent resting 2D transthoracic echo performed in September 2015. PLAN AND RECOMMENDATIONS: Currently, the patient's heart rate remains elevated. She received a dose of intravenous digoxin as well as oral diltiazem and oral metoprolol succinate at approximately 05:30 this morning. I am going to discontinue metoprolol succinate in favor of metoprolol tartrate 25 mg t.i.d. We will utilize p.r.n. doses of intravenous metoprolol as needed to improve heart rate control. May need diltiazem infusion during hospitalization. There are no signs/symptoms of GI bleeding currently. As the patient may require cardioversion if rates are difficult to control, I will initiate intravenous heparin for anticoagulation if there is no contraindication from the surgical service. We will continue to monitor telemetry during hospitalization. Potassium and magnesium will be replaced as indicated. Thank you for allowing me to participate in the care of your patient. BRYCE
[2017-04-26] MEDS: METOPROLOL TARTRATE 25 MG TAB PO SCH ×2 (14:33→20:52)
--- NOTE | 2017-04-26 15:18 | Progress Note ---
Medicine Progress Note Date & Time of Visit: Apr 26, 2017 at 10:49. Subjective Pt was seen and examined Lying in bed with no distress She said that her abdominal pain improved She said that she had a BM yesterday She drained about 200cc from the NGT She was transferred to telemetry due to Afib with uncontrolled HR She was converted back to NSR around 10 oclock today Denies any chest pain, palpitation, dizziness and SOB Objective Last 8 Hrs Date Time Temp Pulse Resp B/P (MAP) Pulse Ox O2 Delivery O2 Flow Rate FiO2 04/26/17 12:25 36.6 94 18 128/62 (84) 95 04/26/17 12:00 Oxymask 4.0 04/26/17 08:01 36.5 100 16 134/69 (90) 96 04/26/17 08:00 Oxymask 4.0 04/26/17 07:32 110 14 99 Mask 4.0 Physical Exam: General- No acute distress Head- atraumatic Eyes- PERRL, EOMI ENT-NGT Neck- supple, no JVD Lungs- No wheezing Heart- regular rhythm Abdomen- normal bowel sounds, soft Extremities- no calf tenderness Neuro- alert, oriented, PERRL, EOMI Skin- warm & dry Laboratory Results: Last 24 Hours Test 04/25/17 15:03 04/25/17 15:50 04/25/17 18:23 04/26/17 00:03 Lactic Acid Level 1.9 mmol/L Urine Color YELLOW Urine Appearance CLEAR Urine pH 7.0 Urine Specific [place] 1.018 Urine Protein NEG Urine Glucose (UA) NEG Urine Ketones NEG Urine Occult Blood NEG Urine Nitrite NEG Urine Bilirubin NEG Urine Urobilinogen NEG Urine Leukocyte Esterase TRACE Urine WBC (Auto) 1-5 /hpf Urine RBC (Auto) 0-4 /hpf Urine Hyaline Casts (Auto) 1-5 /lpf Urine Epithelial Cells (Auto) 10-20 /lpf Urine Bacteria (Auto) NEG Bedside Glucose 122 mg/dl 99 mg/dl Test 04/26/17 01:37 04/26/17 04:54 04/26/17 06:06 04/26/17 11:08 White Blood Count 11.68 K/uL Red Blood Count 4.31 M/uL Hemoglobin 11.7 g/dL Hematocrit 37.4 % Mean Corpuscular Volume 86.8 fL Mean Corpuscular Hemoglobin 27.1 pg Mean Corpuscular Hemoglobin Concent 31.3 g/dl Platelet Count 152 K/uL Mean Platelet Volume 9.3 fL Neutrophils (%) (Auto) 83.3 % Lymphocytes (%) (Auto) 9.2 % Monocytes (%) (Auto) 6.5 % Eosinophils (%) (Auto) 0.4 % Basophils (%) (Auto) 0.2 % Neutrophils # (Auto) 9.72 K/uL Lymphocytes # (Auto) 1.08 K/uL Monocytes # (Auto) 0.76 K/uL Eosinophils # (Auto) 0.05 K/uL Basophils # (Auto) 0.02 K/uL RDW Standard Deviation 49.9 fL RDW Coefficient of Variation 15.5 % Immature Granulocyte % (Auto) 0.4 % Immature Granulocyte # (Auto) 0.05 K/uL Activated Partial Thromboplast Time 28.2 SECONDS Partial Thromboplastin Ratio 1.1 Arterial Blood pH 7.39 Arterial Blood Partial Pressure CO2 45 mmHg Arterial Blood Partial Pressure O2 57 mm/Hg Arterial Blood HCO3 27 mmol/L Arterial Blood Oxygen Saturation 85.8 % Arterial Blood Base Excess 1.8 mEq/L Arterial Blood Gas Delivery 4 L Brien Test POS Sodium Level 135 mmol/L 135 mmol/L Potassium Level 3.5 mmol/L 3.6 mmol/L Chloride Level 100 mmol/L 97 mmol/L Carbon Dioxide Level 28 mmol/L 30 mmol/L Anion Gap 7.0 mmol/L 8.0 mmol/L Blood Urea Nitrogen 18 mg/dl 17 mg/dl Creatinine 0.62 mg/dl 0.68 mg/dl Est Creatinine Clear Calc Drug Dose 63.6 ml/min 58.0 ml/min Estimated GFR () 99.4 96.4 Estimated GFR (Non- 85.8 83.2 BUN/Creatinine Ratio 28.9 24.6 Random Glucose 106 mg/dl 115 mg/dl Estimated Average Glucose 123 mg/dl Hemoglobin A1c 5.9 % Calcium Level 7.8 mg/dl 8.0 mg/dl Magnesium Level 1.5 mg/dl Thyroid Stimulating Hormone (TSH) 0.964 uIu/ml Troponin I 0.406 ng/ml Bedside Glucose 128 mg/dl Lactic Acid Level 0.7 mmol/L Test 04/26/17 11:12 04/26/17 11:26 Sodium Level 133 mmol/L Potassium Level 4.3 mmol/L Chloride Level 98 mmol/L Carbon Dioxide Level 30 mmol/L Anion Gap 5.0 mmol/L Blood Urea Nitrogen 17 mg/dl Creatinine 0.59 mg/dl Est Creatinine Clear Calc Drug Dose 66.8 ml/min Estimated GFR () 101.0 Estimated GFR (Non- 87.2 BUN/Creatinine Ratio 28.8 Random Glucose 133 mg/dl Calcium Level 7.7 mg/dl Magnesium Level 2.5 mg/dl Troponin I 0.647 ng/ml Bedside Glucose 135 mg/dl Date/Time Source Procedure Growth Status 04/25/17 15:50 Urine , Clean Catch Urine Culture - Preliminary Streptococcus Species Resulted Assessment & Plan PARTIAL SBO Present on admission with abdominal pain and nausea CT abd/pelvis showed Partial distal small bowel obstruction of uncertain etiology. Surgery on board and recommended to continue NGT If pt is passing more gas and has another BM, consider to d/c NGT and can start on clear liquid diet Pt had a BM yesterday Repeat abd xray showed moderate left abdominal small bowel ileus with small bowel distention slightly improved compared to the prior study. Continue pain controlled Continue Clinda and Flagyl LACTIC ACIDEMIA WBC trending down 13K --> 11K On Clinda and Flagyl resolved RECENT INFLUENZA A, COPD EXACERBATION patient completing steroid taper and doxycycline tomorrow resume chronic dose of prednisone 10mg daily on 04/27 stable PAROXYSMAL A-FIB Rate on controlled now Convert back to NSR Received 1 dose of digoxin for uncontrolled HR/FIB CHADS2-VASc score equals 3. No a good candidate for anticoagulant due to falls Coumadin discontinued earlier in 2017 due to recurrent falls. Cardiology on board ELECTROLYTES IMBALANCE Low K and low mag K and mg replaced Will keep K above 4 and Mg above 2 continue monitor DM Recent Hba1c 5.9 Controlled Hold oral agents Continue insulin sliding scale DVT PROPHYLAXIS -SQ heparin CODE STATUS FULL CODE DISPOSITION Continue monitor in telemetry Current Inpatient Medications: Current Inpatient Medications Medications (Trade) Dose Ordered Sig/Toro Route Start Time Stop Time Status Last Admin Dose Admin Heparin Sodium (Porcine) (Heparin Sq 5000 Unit/0.5ml) 5,000 unit Q8H SQ 04/25/17 14:00 05/25/17 13:59 04/26/17 06:18 5,000 UNIT Acetaminophen (Tylenol Tab) 650 mg Q4H PRN PO 04/25/17 09:30 05/25/17 09:29 Ondansetron HCl (Zofran Inj) 4 mg Q6H PRN IV 04/25/17 09:30 05/25/17 09:29 04/25/17 11:21 4 MG Glucose (Glucose 40% Gel) 15-30 GRAMS 15 GRAMS... UD PRN PO 04/25/17 09:45 05/25/17 09:44 Glucose (Glucose Chew Tab) 4-8 Tablets 4 Tabl... UD PRN PO 04/25/17 09:45 05/25/17 09:44 Glucagon (Glucagon Inj) 1 mg UD PRN SQ 04/25/17 09:45 05/25/17 09:44 Doxycycline Hyclate (Vibramycin Cap) 100 mg BID PO 04/25/17 21:00 04/26/17 21:01 04/26/17 07:35 100 MG Aspirin (Ecotrin Tab) 81 mg DAILY PO 04/26/17 09:00 05/26/17 08:59 04/26/17 07:34 81 MG Baclofen (Lioresal Tab) 10 mg BID PO 04/25/17 21:00 05/25/17 20:59 04/26/17 07:35 10 MG Budesonide (Pulmicort Respules 0.5MG/ 2ML Neb Soln) 1 mg BID INH 04/25/17 21:00 05/25/17 20:59 04/26/17 07:32 1 MG Prednisone (PredniSONE TAB) 10 mg QAM PO 04/27/17 09:00 05/27/17 08:59 Sertraline HCl (Zoloft Tab) 25 mg DAILY PO 04/26/17 09:00 05/26/17 08:59 04/26/17 07:35 25 MG Docusate Sodium (coLACE CAP) 100 mg BID PO 04/25/17 21:00 05/25/17 20:59 Insulin Aspart (novoLOG ASPART) SLIDING SCALE If C... Q6 SC 04/25/17 12:00 05/25/17 10:59 Morphine Sulfate (MoRPHine SULFATE INJ) 2 mg Q3H PRN IV 04/25/17 14:00 05/09/17 13:59 04/25/17 21:54 2 MG Clindamycin Phosphate 600 mg/ Dextrose 54 ml @ 100 mls/hr Q8H IV 04/25/17 16:00 05/05/17 15:59 04/26/17 08:09 100 MLS/HR Metronidazole 500 mg/Prmx 100 ml @ 100 mls/hr Q8H IV 04/25/17 18:00 05/05/17 17:59 04/26/17 01:59 100 MLS/HR Haloperidol (Haldol Tab) 2 mg Q4H PRN PO 04/26/17 01:15 05/26/17 01:14 Haloperidol Lactate (Haldol Inj) 2 mg Q2H PRN IM 04/26/17 01:15 05/26/17 01:14 Ipratropium [place] (Atrovent 0.02% 0.5MG/2.5ML Neb) 0.5 mg Q4H PRN INH 04/26/17 02:15 05/26/17 02:14 Levalbuterol (Xopenex 1.25MG/ 0.5ML Neb) 1.25 mg Q4H PRN INH 04/26/17 02:15 05/26/17 02:14 Diltiazem HCl (Cardizem Cd Cap) 240 mg QAM PO 04/27/17 09:00 05/26/17 08:59 Tramadol HCl (Ultram Tab) 50 mg Q6 PRN PO 04/26/17 04:30 05/25/17 10:14 04/26/17 10:15 50 MG Metoprolol Tartrate (Lopressor Iv) 2.5 mg Q6H IV. 04/26/17 06:00 05/26/17 05:59 Future Hold 04/26/17 06:26 2.5 MG Pantoprazole Sodium (Protonix Tab) 40 mg QAM PO 04/27/17 09:00 05/26/17 08:59 Metoprolol Tartrate (Lopressor Tab) 25 mg Q8 PO 04/26/17 14:00 05/26/17 13:59
[2017-04-27] VITALS (14 sets, daily range): BP systolic 104–144; BP diastolic 54–66; PULSE 55–69; TEMP 36.5–37; O2SAT 90–99
[2017-04-27] MEDS: CLINDAMYCIN IV 600 MG in DEXTROSE 5% 50ML 50 ML IV SCH ×3 (00:29→16:23)
[2017-04-27] MEDS: IPRATROPIUM BROMIDE NEB SOLN 0.02% 2.5 ML VIAL INH PRN ×2 (01:02→05:29)
[2017-04-27] MEDS: LEVALBUTEROL 1.25MG/0.5ML NEB INH PRN ×2 (01:02→05:29)
[2017-04-27] MEDS: METRONIDAZOLE / NSS 500 MG in PREMIXED NSS 100 ML IV SCH ×3 (01:49→17:30)
[2017-04-27] MEDS: METOPROLOL TARTRATE 25 MG TAB PO SCH ×2 (05:12→20:10)
[2017-04-27] MEDS: HEPARIN SOD 5000 UNIT/0.5 ML CARP SQ SCH ×2 (05:13→15:27)
[2017-04-27] MEDS: BUDESONIDE 0.5 MG/2 ML VIAL (PULMICORT) INH SCH ×2 (05:29→19:05)
[2017-04-27 06:11] LABS: CALCIUM 7.7 mg/dl (8.5-10.1); CREATININE 0.59 mg/dl (0.60-1.20)
[2017-04-27] MEDS: TRAMADOL HCL 50 MG TAB PO PRN (06:36)
[2017-04-27] MEDS: INSULIN ASPART 100 UNITS/ML 3 ML PEN SC SCH ×5 (07:35→20:59)
[2017-04-27] MEDS: MoRPHine SULFATE 2 MG/ML CARP IV PRN (07:44)
[2017-04-27] MEDS: DOCUSATE SODIUM 100 MG CAP PO SCH ×2 (07:46→20:09)
[2017-04-27] MEDS: DILTIAZEM HCL 240 MG CAPCR PO SCH (07:46)
[2017-04-27] MEDS: PANTOprazole SOD 40 MG TAB PO SCH (07:47)
[2017-04-27] MEDS: BACLOFEN 10 MG TAB PO SCH ×2 (07:47→20:09)
[2017-04-27] MEDS: SERTRALINE HCL 50 MG TAB PO SCH (07:47)
[2017-04-27] MEDS: ASPIRIN 81 MG ECTAB PO SCH (07:47)
[2017-04-27] MEDS ORDERED: METOPROLOL SUCC 50MG EXT REL TAB PO SCH (09:00)
[2017-04-27] MEDS ORDERED: KETOROLAC TROMETHAMINE 15 MG/ML VIAL IV ONE (09:30)
--- NOTE | 2017-04-27 10:30 | DIAGNOSTIC IMAGING REPORT ---
ABDOMEN 2 VIEWS CLINICAL HISTORY: Partial small bowel obstruction COMPARISON STUDY: 04/26/2017 FINDINGS: The nasogastric tube has been removed. There are surgical clips within the right upper quadrant consistent with a prior cholecystectomy. There is decreasing small bowel distention. Most prominent small bowel loop measures 31 mm. There is blunting of the right lateral costophrenic angle and left costophrenic angle. There is an eggshell calcification visualized at the right lung base. IMPRESSION: 1. Interval removal of the nasogastric tube 2. Diminished small bowel dilatation. Electronically signed by: Albaro Alonso M.D. 04/27/2017 10:28 AM Dictated Date/Time: 04/27/2017 10:27 AM
--- NOTE | 2017-04-27 10:55 | Surgery Progress Note ---
Surgery Progress Note Date of Service Apr 27, 2017. Subjective + feeling well, + complaints (back pain), + bowel movement, + flatus, No nausea , No vomiting Patient sitting up in bed- complaints of back pain (chronic issue) States abdominal pain is improved since admission. NG tube out. Objective Vital Signs: Date Time Temp Pulse Resp B/P (MAP) Pulse Ox O2 Delivery O2 Flow Rate FiO2 04/27/17 08:00 95 Oxymask 04/27/17 07:57 36.9 66 18 119/64 (82) 95 04/27/17 05:26 57 16 99 Mask 4.0 04/27/17 04:05 96 Oxymask 4.0 92 04/27/17 03:35 36.6 57 20 118/62 (80) 98 Oxymask 4.0 04/27/17 01:02 58 16 94 Mask 4.0 04/27/17 00:08 37.0 57 20 121/54 (76) 99 Oxymask 4.0 04/27/17 00:00 96 Oxymask 4.0 92 04/26/17 20:55 36.6 60 22 114/52 (72) 93 Oxymask 4.0 04/26/17 20:40 60 16 98 Mask 4.0 04/26/17 20:00 96 Oxymask 4.0 92 04/26/17 16:00 Oxymask 4.0 04/26/17 15:52 37.0 94 18 132/69 (90) 96 04/26/17 12:25 36.6 94 18 128/62 (84) 95 04/26/17 12:00 Oxymask 4.0 General Appearance: WD/WN, no apparent distress Abdomen: non tender, soft, + pertinent finding (distention improving, non- tender on exam. ) Laboratory Results: Results Past 24 Hours Test 04/26/17 11:08 04/26/17 11:12 04/26/17 11:26 04/26/17 16:31 Range/Units Lactic Acid Level 0.7 0.4-2.0 mmol/L Sodium Level 133 136-145 mmol/L Potassium Level 4.3 3.5-5.1 mmol/L Chloride Level 98 98-107 mmol/L Carbon Dioxide Level 30 21-32 mmol/L Anion Gap 5.0 3-11 mmol/L Blood Urea Nitrogen 17 7-18 mg/dl Creatinine 0.59 0.60-1.20 mg/dl Est Creatinine Clear Calc Drug Dose 66.8 ml/min Estimated GFR () 101.0 Estimated GFR (Non- 87.2 BUN/Creatinine Ratio 28.8 10-20 Random Glucose 133 70-99 mg/dl Calcium Level 7.7 8.5-10.1 mg/dl Magnesium Level 2.5 1.8-2.4 mg/dl Troponin I 0.647 0-0.045 ng/ml Bedside Glucose 135 142 70-90 mg/dl Test 04/26/17 20:18 04/27/17 00:25 04/27/17 05:26 04/27/17 06:03 Range/Units Bedside Glucose 103 73 75 70-90 mg/dl Sodium Level 135 136-145 mmol/L Potassium Level 4.0 3.5-5.1 mmol/L Chloride Level 99 98-107 mmol/L Carbon Dioxide Level 31 21-32 mmol/L Anion Gap 5.0 3-11 mmol/L Blood Urea Nitrogen 19 7-18 mg/dl Creatinine 0.59 0.60-1.20 mg/dl Est Creatinine Clear Calc Drug Dose 66.8 ml/min Estimated GFR () 101.0 Estimated GFR (Non- 87.2 BUN/Creatinine Ratio 32.6 10-20 Random Glucose 79 70-99 mg/dl Calcium Level 7.7 8.5-10.1 mg/dl Magnesium Level 2.2 1.8-2.4 mg/dl ABDOMEN 2 VIEWS CLINICAL HISTORY: Partial small bowel obstruction COMPARISON STUDY: 04/26/2017 FINDINGS: The nasogastric tube has been removed. There are surgical clips within the right upper quadrant consistent with a prior cholecystectomy. There is decreasing small bowel distention. Most prominent small bowel loop measures 31 mm. There is blunting of the right lateral costophrenic angle and left costophrenic angle. There is an eggshell calcification visualized at the right lung base. IMPRESSION: 1. Interval removal of the nasogastric tube 2. Diminished small bowel dilatation. Electronically signed by: Albaro Alonso M.D. 04/27/2017 10:28 AM Dictated Date/Time: 04/27/2017 10:27 AM Assessment & Plan Assessment: 81-year-old female partial small bowel obstruction. Plan: Abdomen 2 view ordered this AM- reviewed results. No acute surgical intervention required NG tube out- denies nausea or vomiting. Will start clear liquids and see how she tolerates. Can advance diet if she tolerates liquids. Back pain management per hospitalist team. Patient seen and examined with Dr. Herbert. Will continue to follow.
--- NOTE | 2017-04-27 10:58 | Cardiology Follow-Up ---
Subjective General Date of Service: Apr 27, 2017. Pt evaluation today including: conversation w/ patient, conversation w/ family , physical exam, chart review, lab review, review of studies, review of inpatient medication list History of Present Illness The patient is a 81 year old female seen in follow-up. She has remained in sinus rhythm overnight. Patient is much more alert and appropriate today. Denies chest discomfort or palpitations. Abdominal distention improving. Tolerating clear liquids. Complains of chronic low back pain. Daughter present at bedside. Allergies Coded Allergies: Ciprofloxacin (Verified Allergy, Intermediate, hives, itching, 04/25/17) Amoxicillin (Verified Allergy, Mild, itching,TOLERATING ZOSYN 01/04/14, 04/25) Clavulanic Acid (Verified Allergy, Mild, ITCHING,TOLERATING ZOSYN 01/04/14 , 04/25/17) Alendronate (Verified Adverse Reaction, Unknown, feet and hand pain, ) Levofloxacin (Verified Adverse Reaction, Unknown, muscle pain, 04/25/17) Social History Smoking Status: Never Smoker Hx Tobacco Use In Past Year?: No Hx Alcohol Use - Type And Amou: No Hx Substance Use - Type And Am: No Problem List Medical Problems: (1) Bronchitis Status: Acute (2) Cat bite of right hand Status: Acute (3) Cellulitis of heel, right Status: Acute (4) Colitis Status: Acute (5) COPD (chronic obstructive pulmonary disease) Status: Acute (6) Failure of outpatient treatment Status: Acute (7) Head injury Status: Acute (8) Hypoxia Status: Acute (9) Influenza A Status: Acute (10) Knee contusion Status: Acute (11) Leukocytosis Status: Acute (12) Low back pain Status: Acute (13) Lower abdominal pain Status: Acute (14) Pneumonia Status: Acute (15) Respiratory failure Status: Acute (16) Right leg swelling Status: Acute (17) Right shoulder injury Status: Acute (18) Shortness of breath Status: Acute (19) Subtherapeutic anticoagulation Status: Acute (20) Swelling of right extremity Status: Acute Review of Systems Respiratory: No cough, No sputum, No wheezing, No shortness of breath, No dyspnea on exertion, No dyspnea at rest, No hemoptysis Cardiac: No chest pain, No orthopnea, No PND, No edema, No claudication, No palpitations Physical Exam Vital Signs Last Vital Signs Documentation Date Time Temp Pulse Resp B/P (MAP) Pulse Ox O2 Delivery O2 Flow Rate FiO2 04/27/17 08:00 95 Oxymask 04/27/17 07:57 36.9 66 18 119/64 (82) 04/27/17 05:26 4.0 04/27/17 04:05 92 Physical Exam Constitutional: General Apperance: too thin Level of Distress: NAD Head: normocephalic Neck: supple, trachea midline Lungs: Auscultation: no wheezing, no rales/crackles, no rhonchi Cardiovascular: Heart Auscultation: RRR, normal S1, normal S2, no murmurs, no rubs, no gallops Peripheral Pulses: Radial Pulse: normal on the left, normal on the right Abdomen: Inspection & Palpation: soft, distended (no rebound or guarding. Hypoactive bowel sounds noted.) Extremities: no cyanosis, no edema, no clubbing, no ulcers, pertinent finding ( upper extremity ecchymosis) Neurologic: Gait & Station: pertinent finding (no focal motor deficit) Cranial Nerves: grossly intact Assessment and Plan Assessment and Plan FINAL IMPRESSION: 1. Paroxysmal atrial fibrillation secondary to acute small bowel obstruction, electrolyte derangement, and volume depletion. -Spontaneous conversion to normal sinus rhythm 2. Hypertension -- controlled. 3. Severe chronic obstructive pulmonary disease on home O2. 4. Dyslipidemia with statin intolerance. 5. History of preserved LV systolic function with pulmonary hypertension per most recent resting 2D transthoracic echo performed in September 2015. PLAN AND RECOMMENDATIONS: Reduce metoprolol to 25 mg twice daily with plans to resume Toprol-XL 50 mg daily at time of discharge. Continue diltiazem CD 240 mg daily and low-dose aspirin. Monitor telemetry. I will continue to follow patient during hospitalization. Laboratory Results Last 24 Hours Test 04/26/17 11:08 04/26/17 11:12 04/26/17 11:26 04/26/17 16:31 Lactic Acid Level 0.7 mmol/L Sodium Level 133 mmol/L Potassium Level 4.3 mmol/L Chloride Level 98 mmol/L Carbon Dioxide Level 30 mmol/L Anion Gap 5.0 mmol/L Blood Urea Nitrogen 17 mg/dl Creatinine 0.59 mg/dl Est Creatinine Clear Calc Drug Dose 66.8 ml/min Estimated GFR () 101.0 Estimated GFR (Non- 87.2 BUN/Creatinine Ratio 28.8 Random Glucose 133 mg/dl Calcium Level 7.7 mg/dl Magnesium Level 2.5 mg/dl Troponin I 0.647 ng/ml Bedside Glucose 135 mg/dl 142 mg/dl Test 04/26/17 20:18 04/27/17 00:25 04/27/17 05:26 04/27/17 06:03 Bedside Glucose 103 mg/dl 73 mg/dl 75 mg/dl Sodium Level 135 mmol/L Potassium Level 4.0 mmol/L Chloride Level 99 mmol/L Carbon Dioxide Level 31 mmol/L Anion Gap 5.0 mmol/L Blood Urea Nitrogen 19 mg/dl Creatinine 0.59 mg/dl Est Creatinine Clear Calc Drug Dose 66.8 ml/min Estimated GFR () 101.0 Estimated GFR (Non- 87.2 BUN/Creatinine Ratio 32.6 Random Glucose 79 mg/dl Calcium Level 7.7 mg/dl Magnesium Level 2.2 mg/dl
--- NOTE | 2017-04-27 18:58 | Progress Note ---
Medicine Progress Note Date & Time of Visit: Apr 27, 2017 at 11:51. Subjective Pt was seen and examined Sitting in bed complaint of back pain with daughter at bedside Pt said that she had a small bowel movement yesterday She said that her abdominal pain improved she is having pain in her back Denies any chest pain, palpitation, and SOB Objective Last 8 Hrs Date Time Temp Pulse Resp B/P (MAP) Pulse Ox O2 Delivery O2 Flow Rate FiO2 04/27/17 16:00 Oxymask 6.0 04/27/17 15:57 36.5 65 18 110/66 (81) 96 04/27/17 12:06 36.5 69 18 104/60 (75) 95 04/27/17 12:00 Oxymask 6.0 Physical Exam: General- No acute distress Head- atraumatic Eyes- PERRL, EOMI ENT-NGT Neck- supple, no JVD Lungs- No wheezing Heart- regular rhythm Abdomen- +bowel sounds, mild distended Extremities- no calf tenderness Neuro- alert, oriented, PERRL, EOMI Skin- warm & dry Laboratory Results: Last 24 Hours Test 04/26/17 20:18 04/27/17 00:25 04/27/17 05:26 04/27/17 06:03 Bedside Glucose 103 mg/dl 73 mg/dl 75 mg/dl Sodium Level 135 mmol/L Potassium Level 4.0 mmol/L Chloride Level 99 mmol/L Carbon Dioxide Level 31 mmol/L Anion Gap 5.0 mmol/L Blood Urea Nitrogen 19 mg/dl Creatinine 0.59 mg/dl Est Creatinine Clear Calc Drug Dose 66.8 ml/min Estimated GFR () 101.0 Estimated GFR (Non- 87.2 BUN/Creatinine Ratio 32.6 Random Glucose 79 mg/dl Calcium Level 7.7 mg/dl Magnesium Level 2.2 mg/dl Test 04/27/17 11:01 04/27/17 16:32 Bedside Glucose 106 mg/dl 137 mg/dl Assessment & Plan PARTIAL SBO Present on admission with abdominal pain and nausea CT abd/pelvis showed Partial distal small bowel obstruction of uncertain etiology. Surgery on board and recommended to continue NGT If pt is passing more gas and has another BM, consider to d/c NGT and can start on clear liquid diet Pt had a BM yesterday Repeat abd xray showed moderate left abdominal small bowel ileus with small bowel distention slightly improved compared to the prior study. Continue pain controlled Continue Clinda and Flagyl 04/27 Repeat abdominal Xray showed diminished small bowel dilatation. Staring on clear liquid diet Continue clinda and flagyl Continue pain control LACTIC ACIDEMIA WBC trending down 13K --> 11K On Clinda and Flagyl resolved RECENT INFLUENZA A, COPD EXACERBATION patient completing steroid taper and doxycycline tomorrow resume chronic dose of prednisone 10mg daily on 04/27 stable PAROXYSMAL A-FIB Rate on controlled now Convert back to NSR Received 1 dose of digoxin for uncontrolled HR/FIB CHADS2-VASc score equals 3. No a good candidate for anticoagulant due to falls Coumadin discontinued earlier in 2017 due to recurrent falls. On metoprolol to 25 mg twice daily and cardizem Cardiology on board ELECTROLYTES IMBALANCE Low K and low mag K and Mg stable continue monitor DM Recent Hba1c 5.9 Controlled Hold oral agents Continue insulin sliding scale DVT PROPHYLAXIS -SQ heparin CODE STATUS FULL CODE DISPOSITION Continue monitor in telemetry Current Inpatient Medications: Current Inpatient Medications Medications (Trade) Dose Ordered Sig/Toro Route Start Time Stop Time Status Last Admin Dose Admin Heparin Sodium (Porcine) (Heparin Sq 5000 Unit/0.5ml) 5,000 unit Q8H SQ 04/25/17 14:00 05/25/17 13:59 04/27/17 15:27 5,000 UNIT Acetaminophen (Tylenol Tab) 650 mg Q4H PRN PO 04/25/17 09:30 05/25/17 09:29 Ondansetron HCl (Zofran Inj) 4 mg Q6H PRN IV 04/25/17 09:30 05/25/17 09:29 04/25/17 11:21 4 MG Glucose (Glucose 40% Gel) 15-30 GRAMS 15 GRAMS... UD PRN PO 04/25/17 09:45 05/25/17 09:44 Glucose (Glucose Chew Tab) 4-8 Tablets 4 Tabl... UD PRN PO 04/25/17 09:45 05/25/17 09:44 Glucagon (Glucagon Inj) 1 mg UD PRN SQ 04/25/17 09:45 05/25/17 09:44 Aspirin (Ecotrin Tab) 81 mg DAILY PO 04/26/17 09:00 05/26/17 08:59 04/27/17 07:47 81 MG Baclofen (Lioresal Tab) 10 mg BID PO 04/25/17 21:00 05/25/17 20:59 04/27/17 07:47 10 MG Budesonide (Pulmicort Respules 0.5MG/ 2ML Neb Soln) 1 mg BID INH 04/25/17 21:00 05/25/17 20:59 04/27/17 05:29 1 MG Prednisone (PredniSONE TAB) 10 mg QAM PO 04/27/17 09:00 05/27/17 08:59 04/27/17 07:47 10 MG Sertraline HCl (Zoloft Tab) 25 mg DAILY PO 04/26/17 09:00 05/26/17 08:59 04/27/17 07:47 25 MG Docusate Sodium (coLACE CAP) 100 mg BID PO 04/25/17 21:00 05/25/17 20:59 04/27/17 07:46 100 MG Morphine Sulfate (MoRPHine SULFATE INJ) 2 mg Q3H PRN IV 04/25/17 14:00 05/09/17 13:59 04/27/17 07:44 2 MG Clindamycin Phosphate 600 mg/ Dextrose 54 ml @ 100 mls/hr Q8H IV 04/25/17 16:00 05/05/17 15:59 04/27/17 16:23 100 MLS/HR Metronidazole 500 mg/Prmx 100 ml @ 100 mls/hr Q8H IV 04/25/17 18:00 05/05/17 17:59 04/27/17 17:30 100 MLS/HR Haloperidol (Haldol Tab) 2 mg Q4H PRN PO 04/26/17 01:15 05/26/17 01:14 04/27/17 00:51 2 MG Haloperidol Lactate (Haldol Inj) 2 mg Q2H PRN IM 04/26/17 01:15 05/26/17 01:14 Ipratropium Haines (Atrovent 0.02% 0.5MG/2.5ML Neb) 0.5 mg Q4H PRN INH 04/26/17 02:15 05/26/17 02:14 04/27/17 05:29 0.5 MG Levalbuterol (Xopenex 1.25MG/ 0.5ML Neb) 1.25 mg Q4H PRN INH 04/26/17 02:15 05/26/17 02:14 04/27/17 05:29 1.25 MG Diltiazem HCl (Cardizem Cd Cap) 240 mg QAM PO 04/27/17 09:00 05/26/17 08:59 04/27/17 07:46 240 MG Tramadol HCl (Ultram Tab) 50 mg Q6 PRN PO 04/26/17 04:30 05/25/17 10:14 04/27/17 06:36 50 MG Metoprolol Tartrate (Lopressor Iv) 2.5 mg Q6H IV. 04/26/17 06:00 05/26/17 05:59 Future Hold 04/26/17 06:26 2.5 MG Pantoprazole Sodium (Protonix Tab) 40 mg QAM PO 04/27/17 09:00 05/26/17 08:59 04/27/17 07:47 40 MG Metoprolol Tartrate (Lopressor Tab) 25 mg BID PO 04/27/17 21:00 05/26/17 13:59 Insulin Aspart (novoLOG ASPART) SLIDING SCALE If C... ACHS SC 04/27/17 21:00 05/27/17 20:59
[2017-04-28] VITALS (14 sets, daily range): BP systolic 150–172; BP diastolic 63–84; PULSE 60–113; TEMP 36.6–37; O2SAT 90–98
[2017-04-28] MEDS: HEPARIN SOD 5000 UNIT/0.5 ML CARP SQ SCH ×4 (00:02→20:42)
[2017-04-28] MEDS: CLINDAMYCIN IV 600 MG in DEXTROSE 5% 50ML 50 ML IV SCH ×3 (00:13→17:12)
[2017-04-28] MEDS: METRONIDAZOLE / NSS 500 MG in PREMIXED NSS 100 ML IV SCH ×3 (01:02→17:12)
[2017-04-28] MEDS: LEVALBUTEROL 1.25MG/0.5ML NEB INH PRN ×2 (03:16→23:08)
[2017-04-28] MEDS: IPRATROPIUM BROMIDE NEB SOLN 0.02% 2.5 ML VIAL INH PRN ×2 (03:17→23:08)
[2017-04-28 06:50] LABS: HEMATOCRIT 36.1 % (37-47); HEMOGLOBIN 11.3 g/dL (12.0-16.0); MEAN CELL VOLUME 86.8 fL (80-100); MEAN CORPUSCULAR HEMOGLOBIN 27.2 pg (25-34); MEAN CORPUSCULAR HGB CONC 31.3 g/dl (32-36); MEAN PLATELET VOLUME 9.5 fL (7.4-10.4); PLATELET COUNT 187 K/uL (130-400); RED CELL DISTRIBUTION WIDTH CV 15.5 % (11.5-14.5); RED CELL DISTRIBUTION WIDTH SD 49.3 fL (36.4-46.3); WHITE BLOOD COUNT 9.43 K/uL (4.8-10.8)
[2017-04-28 07:16] LABS: CALCIUM 7.8 mg/dl (8.5-10.1); CREATININE 0.51 mg/dl (0.60-1.20); POTASSIUM 3.9 mmol/L (3.5-5.1)
--- NOTE | 2017-04-28 07:19 | Surgery Progress Note ---
Surgery Progress Note Date of Service Apr 28, 2017. Subjective + feeling well, + bowel movement, + flatus, + pain controlled, + diet ( tolerating clears), No complaints, No nausea, No vomiting Patient seems a little loopy this morning. Nursing staff reports she was given pain meds recently due to her chronic back pain. Nursing staff states she has a good appetite and ate every last drop of her clear liquid meals. Objective Vital Signs: Date Time Temp Pulse Resp B/P (MAP) Pulse Ox O2 Delivery O2 Flow Rate FiO2 04/28/17 04:18 36.8 62 18 172/65 (100) 96 Room Air 04/28/17 04:05 96 Oxymask 4.0 92 04/28/17 03:18 60 16 96 Mask 3.0 04/28/17 00:26 96 Oxymask 4.0 92 04/27/17 23:50 36.5 60 18 144/63 (90) 94 Oxymask 4.0 04/27/17 20:00 96 Oxymask 4.0 92 04/27/17 19:25 36.8 55 18 138/57 (84) 92 Room Air 04/27/17 19:05 55 16 90 Room Air 04/27/17 16:00 Oxymask 6.0 04/27/17 15:57 36.5 65 18 110/66 (81) 96 04/27/17 12:06 36.5 69 18 104/60 (75) 95 04/27/17 12:00 Oxymask 6.0 04/27/17 08:00 95 Oxymask 04/27/17 07:57 36.9 66 18 119/64 (82) 95 General Appearance: WD/WN, no apparent distress Head: normocephalic, atraumatic Respiratory/Chest: no respiratory distress, no accessory muscle use Abdomen: non tender, non distended, soft, no organomegaly Laboratory Results: Results Past 24 Hours Test 04/27/17 11:01 04/27/17 16:32 04/27/17 20:21 04/28/17 06:17 Range/Units Bedside Glucose 106 137 91 70-90 mg/dl White Blood Count 9.43 4.8-10.8 K/uL Red Blood Count 4.16 4.2-5.4 M/uL Hemoglobin 11.3 12.0-16.0 g/dL Hematocrit 36.1 37-47 % Mean Corpuscular Volume 86.8 80-100 fL Mean Corpuscular Hemoglobin 27.2 25-34 pg Mean Corpuscular Hemoglobin Concent 31.3 32-36 g/dl RDW Standard Deviation 49.3 36.4-46.3 fL RDW Coefficient of Variation 15.5 11.5-14.5 % Platelet Count 187 130-400 K/uL Mean Platelet Volume 9.5 7.4-10.4 fL Test 04/28/17 06:50 Range/Units Bedside Glucose 86 70-90 mg/dl Assessment & Plan Partial small bowel obstruction Doing well, +flatus, +BM, No N/V. Doing well on clears - will try full liquids and see how she tolerates - ADAT from there. Continue medical management per hospitalist team. Okay for discharge from surgical standpoint if pain controlled on PO meds and tolerating foods. Please contact with questions or concerns.
[2017-04-28] MEDS: INSULIN ASPART 100 UNITS/ML 3 ML PEN SC SCH ×4 (07:54→20:35)
[2017-04-28] MEDS: BUDESONIDE 0.5 MG/2 ML VIAL (PULMICORT) INH SCH ×2 (07:55→19:20)
[2017-04-28] MEDS: DOCUSATE SODIUM 100 MG CAP PO SCH ×2 (07:56→20:35)
[2017-04-28] MEDS: DILTIAZEM HCL 240 MG CAPCR PO SCH (07:56)
[2017-04-28] MEDS: ASPIRIN 81 MG ECTAB PO SCH (07:56)
[2017-04-28] MEDS: METOPROLOL TARTRATE 25 MG TAB PO SCH (07:57)
[2017-04-28] MEDS: BACLOFEN 10 MG TAB PO SCH ×2 (07:57→20:36)
[2017-04-28] MEDS: SERTRALINE HCL 50 MG TAB PO SCH (07:57)
[2017-04-28] MEDS: PANTOprazole SOD 40 MG TAB PO SCH (07:58)
[2017-04-28] MEDS: LIDODERM (LIDOCAINE) PATCH 5% TD SCH (09:35)
--- NOTE | 2017-04-28 09:51 | Cardiology Follow-Up ---
Subjective General Date of Service: Apr 28, 2017. Pt evaluation today including: conversation w/ patient, physical exam, chart review, lab review, review of studies, review of inpatient medication list History of Present Illness The patient is a 81 year old female seen in follow-up. Denies chest pain or shortness of breath. No recurrent atrial fibrillation on telemetry. Tolerating diet. No recurrent abdominal discomfort. Offers no complaints this time. Allergies Coded Allergies: Ciprofloxacin (Verified Allergy, Intermediate, hives, itching, 04/25/17) Amoxicillin (Verified Allergy, Mild, itching,TOLERATING ZOSYN 01/04/14, 04/25) Clavulanic Acid (Verified Allergy, Mild, ITCHING,TOLERATING ZOSYN 01/04/14 , 04/25/17) Alendronate (Verified Adverse Reaction, Unknown, feet and hand pain, ) Levofloxacin (Verified Adverse Reaction, Unknown, muscle pain, 04/25/17) Social History Smoking Status: Never Smoker Hx Tobacco Use In Past Year?: No Hx Alcohol Use - Type And Amou: No Hx Substance Use - Type And Am: No Problem List Medical Problems: (1) Bronchitis Status: Acute (2) Cat bite of right hand Status: Acute (3) Cellulitis of heel, right Status: Acute (4) Colitis Status: Acute (5) COPD (chronic obstructive pulmonary disease) Status: Acute (6) Failure of outpatient treatment Status: Acute (7) Head injury Status: Acute (8) Hypoxia Status: Acute (9) Influenza A Status: Acute (10) Knee contusion Status: Acute (11) Leukocytosis Status: Acute (12) Low back pain Status: Acute (13) Lower abdominal pain Status: Acute (14) Pneumonia Status: Acute (15) Respiratory failure Status: Acute (16) Right leg swelling Status: Acute (17) Right shoulder injury Status: Acute (18) Shortness of breath Status: Acute (19) Subtherapeutic anticoagulation Status: Acute (20) Swelling of right extremity Status: Acute Review of Systems Respiratory: No cough, No wheezing, No shortness of breath, No dyspnea at rest , No hemoptysis Cardiac: No chest pain, No orthopnea, No PND, No edema Physical Exam Vital Signs Last Vital Signs Documentation Date Time Temp Pulse Resp B/P (MAP) Pulse Ox O2 Delivery O2 Flow Rate FiO2 04/28/17 08:02 36.8 79 16 168/76 (106) 95 04/28/17 08:00 Room Air 04/28/17 04:05 4.0 92 Physical Exam Constitutional: General Apperance: too thin Level of Distress: NAD Head: normocephalic Neck: supple, trachea midline Lungs: Auscultation: no wheezing, no rales/crackles, no rhonchi Cardiovascular: Heart Auscultation: RRR, normal S1, normal S2, no murmurs, no rubs, no gallops Peripheral Pulses: Radial Pulse: normal on the left, normal on the right Abdomen: Inspection & Palpation: soft, distended (no rebound or guarding. Hypoactive bowel sounds noted.) Extremities: no cyanosis, no edema, no clubbing, no ulcers, pertinent finding ( upper extremity ecchymosis) Neurologic: Gait & Station: pertinent finding (no focal motor deficit) Cranial Nerves: grossly intact Assessment and Plan Assessment and Plan FINAL IMPRESSION: 1. Paroxysmal atrial fibrillation secondary to acute small bowel obstruction, electrolyte derangement, and volume depletion. -Patient spontaneously converted to normal sinus rhythm has remained in sinus rhythm over the past 24 hours 2. Hypertension - labile 3. Severe chronic obstructive pulmonary disease on home O2. 4. Dyslipidemia with statin intolerance. 5. History of preserved LV systolic function with pulmonary hypertension per most recent resting 2D transthoracic echo performed in September 2015. PLAN AND RECOMMENDATIONS: Transition metoprolol tartrate to Toprol-XL 50 mg daily Continue diltiazem CD 240 mg daily and low-dose aspirin. As previously documented patient will not be maintained on long-term anticoagulation due to fall risk. Continue aspirin. No further inpatient cardiovascular testing at this time. I will see her for routine follow-up in the outpatient setting as scheduled. Laboratory Results Last 24 Hours Test 04/27/17 11:01 04/27/17 16:32 04/27/17 20:21 04/28/17 06:17 Bedside Glucose 106 mg/dl 137 mg/dl 91 mg/dl White Blood Count 9.43 K/uL Red Blood Count 4.16 M/uL Hemoglobin 11.3 g/dL Hematocrit 36.1 % Mean Corpuscular Volume 86.8 fL Mean Corpuscular Hemoglobin 27.2 pg Mean Corpuscular Hemoglobin Concent 31.3 g/dl RDW Standard Deviation 49.3 fL RDW Coefficient of Variation 15.5 % Platelet Count 187 K/uL Mean Platelet Volume 9.5 fL Sodium Level 131 mmol/L Potassium Level 3.9 mmol/L Chloride Level 97 mmol/L Carbon Dioxide Level 27 mmol/L Anion Gap 7.0 mmol/L Blood Urea Nitrogen 16 mg/dl Creatinine 0.51 mg/dl Est Creatinine Clear Calc Drug Dose 77.3 ml/min Estimated GFR () 106.0 Estimated GFR (Non- 91.5 BUN/Creatinine Ratio 30.7 Random Glucose 90 mg/dl Calcium Level 7.8 mg/dl Test 04/28/17 06:50 Bedside Glucose 86 mg/dl
--- NOTE | 2017-04-28 11:51 | Progress Note ---
Medicine Progress Note Date & Time of Visit: Apr 28, 2017 at 11:26. Subjective Pt was seen and examined Sitting in bed with no distress doing puzzle Pt said that she feels much better today She tolerated diet She said that her back pain improved She does not have any abdominal pain Pt said that she had a BM denies any chest pain, palpitation and SOB Objective Last 8 Hrs Date Time Temp Pulse Resp B/P (MAP) Pulse Ox O2 Delivery O2 Flow Rate FiO2 04/28/17 08:02 36.8 79 16 168/76 (106) 95 04/28/17 08:00 Room Air 04/28/17 07:20 69 16 90 Room Air 04/28/17 04:18 36.8 62 18 172/65 (100) 96 Room Air 04/28/17 04:05 96 Oxymask 4.0 92 Physical Exam: General- No acute distress Head- atraumatic Eyes- PERRL, EOMI ENT- Tongue midline Neck- supple, no JVD Lungs- No wheezing Heart- regular rhythm Abdomen- +bowel sounds, Non tender Extremities- no calf tenderness Neuro- alert, oriented, PERRL, EOMI Skin- warm & dry Laboratory Results: Last 24 Hours Test 04/27/17 16:32 04/27/17 20:21 04/28/17 06:17 04/28/17 06:50 Bedside Glucose 137 mg/dl 91 mg/dl 86 mg/dl White Blood Count 9.43 K/uL Red Blood Count 4.16 M/uL Hemoglobin 11.3 g/dL Hematocrit 36.1 % Mean Corpuscular Volume 86.8 fL Mean Corpuscular Hemoglobin 27.2 pg Mean Corpuscular Hemoglobin Concent 31.3 g/dl RDW Standard Deviation 49.3 fL RDW Coefficient of Variation 15.5 % Platelet Count 187 K/uL Mean Platelet Volume 9.5 fL Sodium Level 131 mmol/L Potassium Level 3.9 mmol/L Chloride Level 97 mmol/L Carbon Dioxide Level 27 mmol/L Anion Gap 7.0 mmol/L Blood Urea Nitrogen 16 mg/dl Creatinine 0.51 mg/dl Est Creatinine Clear Calc Drug Dose 77.3 ml/min Estimated GFR () 106.0 Estimated GFR (Non- 91.5 BUN/Creatinine Ratio 30.7 Random Glucose 90 mg/dl Calcium Level 7.8 mg/dl Assessment & Plan PARTIAL SBO Present on admission with abdominal pain and nausea CT abd/pelvis showed Partial distal small bowel obstruction of uncertain etiology. Surgery on board and recommended to continue NGT If pt is passing more gas and has another BM, consider to d/c NGT and can start on clear liquid diet Pt had a BM yesterday Repeat abd xray showed moderate left abdominal small bowel ileus with small bowel distention slightly improved compared to the prior study. Continue pain controlled Continue Clinda and Flagyl 04/27 Repeat abdominal Xray showed diminished small bowel dilatation. Staring on clear liquid diet Continue clinda and flagyl Continue pain control 04/28 Denies any abdominal pain Tolerated full liquid diet Diet advance to regular OK from surgery standpoint to discharge home if tolerates diet LACTIC ACIDEMIA WBC trending down 13K --> 11K On Clinda and Flagyl resolved RECENT INFLUENZA A, COPD EXACERBATION patient completing steroid taper and doxycycline tomorrow resume chronic dose of prednisone 10mg daily on 04/27 stable PAROXYSMAL A-FIB Rate on controlled now Convert back to NSR Received 1 dose of digoxin for uncontrolled HR/FIB CHADS2-VASc score equals 3. No a good candidate for anticoagulant due to falls Coumadin discontinued earlier in 2016 due to recurrent falls. On metoprolol to 25 mg twice daily and cardizem Cardiology on board 04/28 Rate is controlled Transition back to metoprolol XL 50 daily Continue Cardizem 240 mg daily Not a good candidate for anticoagulant due to fall Follow up with cardiology as an outpatient HYPONATREMIA Na 131 today Possible related to poor intake since pt was NPO and clear liquid Starting on regular diet Monitor BMP ELECTROLYTES IMBALANCE Low K and low mag K and Mg stable continue monitor AMBULATORY DYSFUNCTION Hx of falls PT/OT pending DM Recent Hba1c 5.9 Controlled Hold oral agents Continue insulin sliding scale DVT PROPHYLAXIS -SQ heparin CODE STATUS FULL CODE DISPOSITION Transfer to medical PT/OT eval D/C tomorrow Current Inpatient Medications: Current Inpatient Medications Medications (Trade) Dose Ordered Sig/Toro Route Start Time Stop Time Status Last Admin Dose Admin Heparin Sodium (Porcine) (Heparin Sq 5000 Unit/0.5ml) 5,000 unit Q8H SQ 04/25/17 14:00 05/25/17 13:59 04/28/17 06:21 5,000 UNIT Acetaminophen (Tylenol Tab) 650 mg Q4H PRN PO 04/25/17 09:30 05/25/17 09:29 Ondansetron HCl (Zofran Inj) 4 mg Q6H PRN IV 04/25/17 09:30 05/25/17 09:29 04/25/17 11:21 4 MG Glucose (Glucose 40% Gel) 15-30 GRAMS 15 GRAMS... UD PRN PO 04/25/17 09:45 05/25/17 09:44 Glucose (Glucose Chew Tab) 4-8 Tablets 4 Tabl... UD PRN PO 04/25/17 09:45 05/25/17 09:44 Glucagon (Glucagon Inj) 1 mg UD PRN SQ 04/25/17 09:45 05/25/17 09:44 Aspirin (Ecotrin Tab) 81 mg DAILY PO 04/26/17 09:00 05/26/17 08:59 04/28/17 07:56 81 MG Baclofen (Lioresal Tab) 10 mg BID PO 04/25/17 21:00 05/25/17 20:59 04/28/17 07:57 10 MG Budesonide (Pulmicort Respules 0.5MG/ 2ML Neb Soln) 1 mg BID INH 04/25/17 21:00 05/25/17 20:59 04/28/17 07:55 1 MG Prednisone (PredniSONE TAB) 10 mg QAM PO 04/27/17 09:00 05/27/17 08:59 04/28/17 07:57 10 MG Sertraline HCl (Zoloft Tab) 25 mg DAILY PO 04/26/17 09:00 05/26/17 08:59 04/28/17 07:57 25 MG Docusate Sodium (coLACE CAP) 100 mg BID PO 04/25/17 21:00 05/25/17 20:59 04/28/17 07:56 100 MG Morphine Sulfate (MoRPHine SULFATE INJ) 2 mg Q3H PRN IV 04/25/17 14:00 05/09/17 13:59 04/27/17 07:44 2 MG Clindamycin Phosphate 600 mg/ Dextrose 54 ml @ 100 mls/hr Q8H IV 04/25/17 16:00 05/05/17 15:59 04/28/17 07:55 100 MLS/HR Metronidazole 500 mg/Prmx 100 ml @ 100 mls/hr Q8H IV 04/25/17 18:00 05/05/17 17:59 04/28/17 09:35 100 MLS/HR Haloperidol (Haldol Tab) 2 mg Q4H PRN PO 04/26/17 01:15 05/26/17 01:14 04/27/17 00:51 2 MG Haloperidol Lactate (Haldol Inj) 2 mg Q2H PRN IM 04/26/17 01:15 05/26/17 01:14 Ipratropium [place] (Atrovent 0.02% 0.5MG/2.5ML Neb) 0.5 mg Q4H PRN INH 04/26/17 02:15 05/26/17 02:14 04/28/17 03:17 0.5 MG Levalbuterol (Xopenex 1.25MG/ 0.5ML Neb) 1.25 mg Q4H PRN INH 04/26/17 02:15 05/26/17 02:14 04/28/17 03:16 1.25 MG Diltiazem HCl (Cardizem Cd Cap) 240 mg QAM PO 04/27/17 09:00 05/26/17 08:59 04/28/17 07:56 240 MG Tramadol HCl (Ultram Tab) 50 mg Q6 PRN PO 04/26/17 04:30 05/25/17 10:14 04/27/17 06:36 50 MG Metoprolol Tartrate (Lopressor Iv) 2.5 mg Q6H IV. 04/26/17 06:00 05/26/17 05:59 Future Hold 04/26/17 06:26 2.5 MG Pantoprazole Sodium (Protonix Tab) 40 mg QAM PO 04/27/17 09:00 05/26/17 08:59 04/28/17 07:58 40 MG Insulin Aspart (novoLOG ASPART) SLIDING SCALE If C... ACHS SC 04/27/17 21:00 05/27/17 20:59 Lidocaine (Lidoderm Patch 5%) 1 patch QAM TD 04/28/17 09:00 05/28/17 08:59 04/28/17 09:35 1 PATCH Miscellaneous (Remove Lidoderm Patch) 1 ea DAILY@21 N/A 04/28/17 21:00 05/28/17 20:59 Metoprolol Succinate (Toprol Xl Tab) 50 mg QAM PO 04/29/17 09:00 05/29/17 08:59 Metoprolol Tartrate (Lopressor Tab) 25 mg TODAY@1900 ONCE PO 04/28/17 19:00 04/28/17 19:01
[2017-04-28] MEDS: ACETAMINOPHEN 325 MG TAB PO PRN ×2 (17:17→22:54)
[2017-04-28] MEDS ORDERED: METOPROLOL TARTRATE 25 MG TAB PO ONE (19:00)
[2017-04-29] VITALS (7 sets, daily range): BP systolic 115–152; BP diastolic 66–83; PULSE 66–106; TEMP 36.4–36.8; O2SAT 92–97
[2017-04-29] MEDS: CLINDAMYCIN IV 600 MG in DEXTROSE 5% 50ML 50 ML IV SCH ×4 (00:47→23:38)
[2017-04-29] MEDS: METRONIDAZOLE / NSS 500 MG in PREMIXED NSS 100 ML IV SCH ×3 (01:41→18:01)
[2017-04-29] MEDS: HEPARIN SOD 5000 UNIT/0.5 ML CARP SQ SCH ×3 (05:28→20:34)
[2017-04-29] MEDS: TRAMADOL HCL 50 MG TAB PO PRN ×2 (05:29→13:14)
[2017-04-29] MEDS: IPRATROPIUM BROMIDE NEB SOLN 0.02% 2.5 ML VIAL INH PRN (07:10)
[2017-04-29] MEDS: LEVALBUTEROL 1.25MG/0.5ML NEB INH PRN (07:10)
[2017-04-29] MEDS: BUDESONIDE 0.5 MG/2 ML VIAL (PULMICORT) INH SCH ×2 (07:10→19:52)
[2017-04-29 07:12] LABS: CALCIUM 7.8 mg/dl (8.5-10.1); CREATININE 0.43 mg/dl (0.60-1.20); POTASSIUM 3.8 mmol/L (3.5-5.1)
[2017-04-29] MEDS: LIDODERM (LIDOCAINE) PATCH 5% TD SCH (07:41)
[2017-04-29] MEDS: DOCUSATE SODIUM 100 MG CAP PO SCH ×2 (07:41→20:30)
[2017-04-29] MEDS: METOPROLOL SUCC 50MG EXT REL TAB PO SCH (07:42)
[2017-04-29] MEDS: SERTRALINE HCL 50 MG TAB PO SCH (07:42)
[2017-04-29] MEDS: ASPIRIN 81 MG ECTAB PO SCH (07:42)
[2017-04-29] MEDS: PANTOprazole SOD 40 MG TAB PO SCH (07:43)
[2017-04-29] MEDS: BACLOFEN 10 MG TAB PO SCH ×2 (07:43→20:30)
[2017-04-29] MEDS: DILTIAZEM HCL 240 MG CAPCR PO SCH (07:44)
[2017-04-29] MEDS: INSULIN ASPART 100 UNITS/ML 3 ML PEN SC SCH ×4 (08:52→20:33)
[2017-04-29] MEDS: ACETAMINOPHEN 325 MG TAB PO PRN (10:42)
--- NOTE | 2017-04-29 10:54 | Surgery Progress Note ---
Surgery Progress Note Date of Service Apr 29, 2017. Subjective + feeling well pt is doing fine, passed gas and BM, pt denies abdominal pain, no nausea, no vomiting, Objective Vital Signs: Date Time Temp Pulse Resp B/P (MAP) Pulse Ox O2 Delivery O2 Flow Rate FiO2 04/29/17 08:00 Room Air 04/29/17 07:56 36.8 99 18 119/75 (90) 93 Room Air 04/29/17 07:10 103 16 97 Mask 3.0 04/29/17 02:54 Oxymask 2.0 04/29/17 00:30 Room Air 04/28/17 23:41 36.9 108 20 150/80 (103) 91 Room Air 04/28/17 23:08 113 16 92 Room Air 04/28/17 19:20 62 16 92 Room Air 04/28/17 16:08 91 Room Air 04/28/17 15:40 36.6 62 18 168/84 (112) 91 Room Air 04/28/17 14:07 37.0 64 22 153/63 (93) 92 Room Air 04/28/17 13:51 Room Air 04/28/17 13:24 36.7 69 16 98 04/28/17 11:00 36.7 69 16 158/74 (102) 98 General Appearance: WD/WN Head: normocephalic Neck: supple, no JVD Respiratory/Chest: chest non-tender, lungs clear, normal breath sounds Cardiovascular: regular rate, rhythm, no edema, no gallop, no JVD, no murmur Abdomen: normal bowel sounds, non tender, non distended, soft Extremities: normal range of motion, non-tender, normal inspection Laboratory Results: Results Past 24 Hours Test 04/28/17 11:25 04/28/17 16:43 04/28/17 20:10 04/29/17 05:53 Range/Units Bedside Glucose 134 131 116 70-90 mg/dl Sodium Level 133 136-145 mmol/L Potassium Level 3.8 3.5-5.1 mmol/L Chloride Level 98 98-107 mmol/L Carbon Dioxide Level 26 21-32 mmol/L Anion Gap 9.0 3-11 mmol/L Blood Urea Nitrogen 7 7-18 mg/dl Creatinine 0.43 0.60-1.20 mg/dl Est Creatinine Clear Calc Drug Dose 91.7 ml/min Estimated GFR () 112.1 Estimated GFR (Non- 96.7 BUN/Creatinine Ratio 16.4 10-20 Random Glucose 113 70-99 mg/dl Calcium Level 7.8 8.5-10.1 mg/dl Test 04/29/17 07:35 Range/Units Bedside Glucose 117 70-90 mg/dl Assessment & Plan lactic acid 1.9 IMP: SBO Plan repeat labs in AM, will F/U 04/29/2017 resolved SBO pt wants to go home today, pt can be discharged home today discharge instruction was given, pt understood, I answered all questions, F/U DR. Brantley in 2 weeks, lactic acid 1.9 IMP: SBO Plan repeat labs in AM, will F/U
--- NOTE | 2017-04-29 12:33 | Cardiology Follow-Up ---
Subjective General Date of Service: Apr 29, 2017. Pt evaluation today including: conversation w/ patient, conversation w/ family , physical exam, chart review, lab review, review of studies, review of inpatient medication list History of Present Illness The patient is a 81 year old female seen in follow-up. Tachycardia recorded overnight. Patient is off telemetry. Regular rhythm noted currently. She denies palpitations. Anxious for discharge to home. Allergies Coded Allergies: Ciprofloxacin (Verified Allergy, Intermediate, hives, itching, 04/25/17) Amoxicillin (Verified Allergy, Mild, itching,TOLERATING ZOSYN 01/04/14, 04/25) Clavulanic Acid (Verified Allergy, Mild, ITCHING,TOLERATING ZOSYN 01/04/14 , 04/25/17) Alendronate (Verified Adverse Reaction, Unknown, feet and hand pain, ) Levofloxacin (Verified Adverse Reaction, Unknown, muscle pain, 04/25/17) Social History Smoking Status: Never Smoker Hx Tobacco Use In Past Year?: No Hx Alcohol Use - Type And Amou: No Hx Substance Use - Type And Am: No Problem List Medical Problems: (1) Bronchitis Status: Acute (2) Cat bite of right hand Status: Acute (3) Cellulitis of heel, right Status: Acute (4) Colitis Status: Acute (5) COPD (chronic obstructive pulmonary disease) Status: Acute (6) Failure of outpatient treatment Status: Acute (7) Head injury Status: Acute (8) Hypoxia Status: Acute (9) Influenza A Status: Acute (10) Knee contusion Status: Acute (11) Leukocytosis Status: Acute (12) Low back pain Status: Acute (13) Lower abdominal pain Status: Acute (14) Pneumonia Status: Acute (15) Respiratory failure Status: Acute (16) Right leg swelling Status: Acute (17) Right shoulder injury Status: Acute (18) Shortness of breath Status: Acute (19) Subtherapeutic anticoagulation Status: Acute (20) Swelling of right extremity Status: Acute Review of Systems Respiratory: + cough, No sputum, No wheezing, No shortness of breath, No dyspnea on exertion, No dyspnea at rest, No hemoptysis Cardiac: No chest pain, No orthopnea, No PND, No edema Physical Exam Vital Signs Last Vital Signs Documentation Date Time Temp Pulse Resp B/P (MAP) Pulse Ox O2 Delivery O2 Flow Rate FiO2 1/8/18 08:00 Room Air 04/29/17 07:56 36.8 99 18 119/75 (90) 93 04/29/17 07:10 3.0 04/28/17 04:05 92 Physical Exam Constitutional: General Apperance: too thin Level of Distress: NAD Head: normocephalic Neck: supple, trachea midline Lungs: Auscultation: no wheezing, no rales/crackles, no rhonchi Cardiovascular: Heart Auscultation: RRR, normal S1, normal S2, no murmurs, no rubs, no gallops Peripheral Pulses: Radial Pulse: normal on the left, normal on the right Abdomen: Inspection & Palpation: soft, distended (no rebound or guarding. Hypoactive bowel sounds noted.) Extremities: no cyanosis, no edema, no clubbing, no ulcers, pertinent finding ( upper extremity ecchymosis) Neurologic: Gait & Station: pertinent finding (no focal motor deficit) Cranial Nerves: grossly intact Assessment and Plan Assessment and Plan FINAL IMPRESSION: 1. Paroxysmal atrial fibrillation secondary to acute small bowel obstruction, electrolyte derangement, and volume depletion. -Patient spontaneously converted to normal sinus rhythm -Elevated heart rate recorded overnight without repeat ECG 2. Hypertension - labile 3. Severe chronic obstructive pulmonary disease on home O2. 4. Dyslipidemia with statin intolerance. 5. History of preserved LV systolic function with pulmonary hypertension per most recent resting 2D transthoracic echo performed in September 2015. PLAN AND RECOMMENDATIONS: Repeat ECG. Continue metoprolol tartrate to Toprol-XL 50 mg daily and Cardizem CD 240 mg daily. As previously documented, patient will not be maintained on long-term anticoagulation due to fall risk. Continue aspirin. No further inpatient cardiovascular testing at this time. I will see her for routine follow-up in the outpatient setting as scheduled. Laboratory Results Last 24 Hours Test 04/28/17 16:43 04/28/17 20:10 04/29/17 05:53 04/29/17 07:35 Bedside Glucose 131 mg/dl 116 mg/dl 117 mg/dl Sodium Level 133 mmol/L Potassium Level 3.8 mmol/L Chloride Level 98 mmol/L Carbon Dioxide Level 26 mmol/L Anion Gap 9.0 mmol/L Blood Urea Nitrogen 7 mg/dl Creatinine 0.43 mg/dl Est Creatinine Clear Calc Drug Dose 91.7 ml/min Estimated GFR () 112.1 Estimated GFR (Non- 96.7 BUN/Creatinine Ratio 16.4 Random Glucose 113 mg/dl Calcium Level 7.8 mg/dl Test 04/29/17 11:13 Bedside Glucose 189 mg/dl
--- NOTE | 2017-04-29 12:45 | Progress Note ---
Internal Med Progress Note Date of Service: Apr 29, 2017. Provider Documentation: SUBJECTIVE: The patient was seen and examined Minimal SOB at rest No symptoms of Intestinal obstruction Ready to be discharged OBJECTIVE: Vital Signs-as noted below Exam: General-Minimal distress at rest Eyes-Normal ENT-normal Neck-Supple Lungs-Clear to ausucltate bilaterally Heart-Regular,no murmur appreciated Abdomen-Benign,on masses,bowel sound present Extremities-trace edema bilaterally Neuro-AAOx3 Lab data as noted below. ASSESSMENT & PLAN: PARTIAL SBO Present on admission with abdominal pain and nausea CT abd/pelvis showed Partial distal small bowel obstruction of uncertain etiology. Has had NGT suction and later taken out Appreciate surgery input Repeat abd xray showed moderate left abdominal small bowel ileus with small bowel distention slightly improved compared to the prior study. Continue Clinda and Flagyl Repeat abdominal Xray showed diminished small bowel dilatation. 04/27/17 Tolerated clears and now on regular diet Likely to be discharged today LACTIC ACIDEMIA WBC trending down 13K --> 11K On Clinda and Flagyl resolved RECENT INFLUENZA A, COPD EXACERBATION patient completing steroid taper and doxycycline tomorrow resume chronic dose of prednisone 10mg daily on 04/27 No more symptoms PAROXYSMAL A-FIB Rate on controlled now Convert back to NSR Received 1 dose of digoxin for uncontrolled HR/FIB CHADS2-VASc score equals 3. No a good candidate for anticoagulant due to falls Coumadin discontinued earlier in 2016 due to recurrent falls. On metoprolol to 25 mg twice daily and Cardizem Transition back to metoprolol XL 50 daily,Continue Cardizem 240 mg daily Not a good candidate for anticoagulant due to fall Follow up with cardiology as an outpatient Ready to be discharged HYPONATREMIA Na 131 today Possible related to poor intake since pt was NPO and clear liquid Starting on regular diet Monitor BMP-remains lower 130s ELECTROLYTES IMBALANCE Low K and low mag K and Mg stable continue monitor AMBULATORY DYSFUNCTION Hx of falls PT/OT ongoing DM Recent Hba1c 5.9 Controlled Hold oral agents Continue insulin sliding scale DVT PROPHYLAXIS -SQ heparin CODE STATUS FULL CODE DISPOSITION Transfer to medical Discharge today Vital Signs: Date Time Temp Pulse Resp B/P (MAP) Pulse Ox O2 Delivery O2 Flow Rate FiO2 04/29/17 08:00 Room Air 04/29/17 07:56 36.8 99 18 119/75 (90) 93 Room Air 04/29/17 07:10 103 16 97 Mask 3.0 04/29/17 02:54 Oxymask 2.0 04/29/17 00:30 Room Air 04/28/17 23:41 36.9 108 20 150/80 (103) 91 Room Air 04/28/17 23:08 113 16 92 Room Air 04/28/17 19:20 62 16 92 Room Air 04/28/17 16:08 91 Room Air 04/28/17 15:40 36.6 62 18 168/84 (112) 91 Room Air 04/28/17 14:07 37.0 64 22 153/63 (93) 92 Room Air 04/28/17 13:51 Room Air 04/28/17 13:24 36.7 69 16 98 Lab Results: Results Past 24 Hours Test 04/28/17 16:43 04/28/17 20:10 04/29/17 05:53 04/29/17 07:35 Range/Units Bedside Glucose 131 116 117 70-90 mg/dl Sodium Level 133 136-145 mmol/L Potassium Level 3.8 3.5-5.1 mmol/L Chloride Level 98 98-107 mmol/L Carbon Dioxide Level 26 21-32 mmol/L Anion Gap 9.0 3-11 mmol/L Blood Urea Nitrogen 7 7-18 mg/dl Creatinine 0.43 0.60-1.20 mg/dl Est Creatinine Clear Calc Drug Dose 91.7 ml/min Estimated GFR () 112.1 Estimated GFR (Non- 96.7 BUN/Creatinine Ratio 16.4 10-20 Random Glucose 113 70-99 mg/dl Calcium Level 7.8 8.5-10.1 mg/dl Test 04/29/17 11:13 Range/Units Bedside Glucose 189 70-90 mg/dl
[2017-04-29] MEDS ORDERED: LCTX PO (13:59)
[2017-04-29] MEDS ORDERED: METR500T PO (13:59)
[2017-04-29] MEDS ORDERED: CLC150 PO (13:59)
--- NOTE | 2017-04-29 14:01 | Discharge Instructions ---
Discharge Instructions Date of Service Apr 29, 2017. Admission Reason for Admission: Partial Small Bowel Obstruction Discharge Discharge Diagnosis / Problem: SBO Discharge Goals Goal(s): Prevent Disease Progression Activity Recommendations Activity Limitations: resume your previous activity . Instructions / Follow-Up Instructions / Follow-Up Dr Torre on 05/03/17 at 12:15PM and Dr Brantley on 05/15/17 at 1:00PM Current Hospital Diet Patient's current hospital diet: Diabetes Type 2 Diet, Regular Diet Discharge Diet Recommended Diet: Diabetes Type 2 Diet Pending Studies Studies pending at discharge: no Laboratory Results Hemoglobin A1c Test 04/26/17 01:37 Range/Units Estimated Average Glucose 123 mg/dl Hemoglobin A1c 5.9 H 4.5-5.6 % Medical Emergencies . Who to Call and When: Medical Emergencies: If at any time you feel your situation is an emergency, please call 911 immediately. . Non-Emergent Contact Non-Emergency issues call your: Primary Care Provider . 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 "Provider Documentation" section prepared by Hayden Contreras. . VTE Core Measure Inpt VTE Proph given/why not?: Unfractionated heparin SQ
[2017-04-30] MEDS: TRAMADOL HCL 50 MG TAB PO PRN ×2 (00:25→08:24)
[2017-04-30] MEDS: METRONIDAZOLE / NSS 500 MG in PREMIXED NSS 100 ML IV SCH ×2 (01:50→11:03)
[2017-04-30 03:54] VITALS: BP 149/73; PULSE 62; TEMP 36.8; O2SAT 94
[2017-04-30] MEDS: HEPARIN SOD 5000 UNIT/0.5 ML CARP SQ SCH (06:04)
[2017-04-30 07:27] VITALS: PULSE 65; O2SAT 95
[2017-04-30] MEDS: BUDESONIDE 0.5 MG/2 ML VIAL (PULMICORT) INH SCH (07:27)
[2017-04-30 07:41] VITALS: BP 145/70; PULSE 68; TEMP 36.7; O2SAT 92
[2017-04-30] MEDS: PANTOprazole SOD 40 MG TAB PO SCH (08:19)
[2017-04-30] MEDS: CLINDAMYCIN IV 600 MG in DEXTROSE 5% 50ML 50 ML IV SCH (08:19)
[2017-04-30] MEDS: SERTRALINE HCL 50 MG TAB PO SCH (08:19)
[2017-04-30] MEDS: DOCUSATE SODIUM 100 MG CAP PO SCH (08:19)
[2017-04-30] MEDS: METOPROLOL SUCC 50MG EXT REL TAB PO SCH (08:19)
[2017-04-30] MEDS: BACLOFEN 10 MG TAB PO SCH (08:19)
[2017-04-30] MEDS: ASPIRIN 81 MG ECTAB PO SCH (08:20)
[2017-04-30] MEDS: LIDODERM (LIDOCAINE) PATCH 5% TD SCH (08:21)
[2017-04-30] MEDS: DILTIAZEM HCL 240 MG CAPCR PO SCH (08:25)
[2017-04-30] MEDS: INSULIN ASPART 100 UNITS/ML 3 ML PEN SC SCH ×2 (08:29→12:01)
--- NOTE | 2017-04-30 09:53 | Cardiology Follow-Up ---
Subjective General Date of Service: Apr 30, 2017. Pt evaluation today including: conversation w/ patient, physical exam, chart review, lab review, review of studies, conversation w/ eap consultant, review of inpatient medication list History of Present Illness The patient is a 81 year old female seen in follow-up. Converted to normal sinus rhythm 04/29/17 at 4 PM. Denies chest pain or palpitations Anxious for discharge. Voices concern about possible lump on her left lower quadrant. Denies abdominal pain, nausea, vomiting, or diarrhea. Allergies Coded Allergies: Ciprofloxacin (Verified Allergy, Intermediate, hives, itching, 04/25/17) Amoxicillin (Verified Allergy, Mild, itching,TOLERATING ZOSYN 01/04/14, 04/25) Clavulanic Acid (Verified Allergy, Mild, ITCHING,TOLERATING ZOSYN 01/04/14 , 04/25/17) Alendronate (Verified Adverse Reaction, Unknown, feet and hand pain, ) Levofloxacin (Verified Adverse Reaction, Unknown, muscle pain, 04/25/17) Social History Smoking Status: Never Smoker Hx Tobacco Use In Past Year?: No Hx Alcohol Use - Type And Amou: No Hx Substance Use - Type And Am: No Problem List Medical Problems: (1) Bronchitis Status: Acute (2) Cat bite of right hand Status: Acute (3) Cellulitis of heel, right Status: Acute (4) Colitis Status: Acute (5) COPD (chronic obstructive pulmonary disease) Status: Acute (6) Failure of outpatient treatment Status: Acute (7) Head injury Status: Acute (8) Hypoxia Status: Acute (9) Influenza A Status: Acute (10) Knee contusion Status: Acute (11) Leukocytosis Status: Acute (12) Low back pain Status: Acute (13) Lower abdominal pain Status: Acute (14) Pneumonia Status: Acute (15) Respiratory failure Status: Acute (16) Right leg swelling Status: Acute (17) Right shoulder injury Status: Acute (18) Shortness of breath Status: Acute (19) Subtherapeutic anticoagulation Status: Acute (20) Swelling of right extremity Status: Acute Review of Systems Respiratory: No cough, No wheezing, No shortness of breath, No dyspnea at rest , No hemoptysis Cardiac: No chest pain, No orthopnea, No PND, No edema, No palpitations Physical Exam Vital Signs Last Vital Signs Documentation Date Time Temp Pulse Resp B/P (MAP) Pulse Ox O2 Delivery O2 Flow Rate FiO2 04/30/17 08:00 Room Air 04/30/17 07:41 36.7 68 20 145/70 (95) 92 04/29/17 07:10 3.0 04/28/17 04:05 92 Physical Exam Constitutional: General Apperance: too thin Level of Distress: NAD Head: normocephalic Neck: supple, trachea midline Lungs: Auscultation: no wheezing, no rales/crackles, no rhonchi Cardiovascular: Heart Auscultation: RRR, normal S1, normal S2, no murmurs, no rubs, no gallops Peripheral Pulses: Radial Pulse: normal on the left, normal on the right Abdomen: Inspection & Palpation: soft, distended (no rebound or guarding. Hypoactive bowel sounds noted.) Extremities: no cyanosis, no edema, no clubbing, no ulcers, pertinent finding ( upper extremity ecchymosis) Neurologic: Gait & Station: pertinent finding (no focal motor deficit) Cranial Nerves: grossly intact Assessment and Plan Assessment and Plan FINAL IMPRESSION: 1. Paroxysmal atrial fibrillation secondary to acute small bowel obstruction, electrolyte derangement, and volume depletion. -Currently sinus rhythm 2. Hypertension - labile/controlled 3. Severe chronic obstructive pulmonary disease on home O2. 4. Dyslipidemia with statin intolerance. 5. History of preserved LV systolic function with pulmonary hypertension per most recent resting 2D transthoracic echo performed in September 2015. PLAN AND RECOMMENDATIONS: Continue Toprol-XL 50 mg daily and Cardizem CD 240 mg daily. As previously documented, patient will not be maintained on long-term anticoagulation due to fall risk. Continue aspirin. No further inpatient cardiovascular testing at this time. I will see her for routine follow-up in the outpatient setting as scheduled. Patient may be discharged to home from a cardiovascular perspective. Laboratory Results Last 24 Hours Test 04/29/17 11:13 04/29/17 16:55 04/29/17 20:19 04/30/17 03:56 Bedside Glucose 189 mg/dl 125 mg/dl 151 mg/dl 103 mg/dl Test 04/30/17 06:47 Bedside Glucose 113 mg/dl
--- NOTE | 2017-04-30 11:03 | Progress Note ---
Internal Med Progress Note Date of Service: Apr 30, 2017. Provider Documentation: SUBJECTIVE: The patient was seen and examined Minimal SOB at rest No symptoms of Intestinal obstruction Has had AF with RVR yesterday and remains in SR since yesterday OBJECTIVE: Vital Signs-as noted below Exam: General-Minimal distress at rest Eyes-Normal ENT-normal Neck-Supple Lungs-Clear to ausucltate bilaterally Heart-Regular,no murmur appreciated Abdomen-Benign,on masses,bowel sound present Extremities-trace edema bilaterally Neuro-AAOx3 Lab data as noted below. ASSESSMENT & PLAN: PARTIAL SBO Present on admission with abdominal pain and nausea CT abd/pelvis showed Partial distal small bowel obstruction of uncertain etiology. Has had NGT suction and later taken out Appreciate surgery input Repeat abd xray showed moderate left abdominal small bowel ileus with small bowel distention slightly improved compared to the prior study. Continue Clinda and Flagyl.Finished 5 days course of antibiotics Repeat abdominal Xray showed diminished small bowel dilatation. 04/27/17 Tolerated clears and now on regular diet Discharged today Enterococcus Faecalis UTI Received 5 days course of Clindamycin and Flagyl Remains asymptomatic LACTIC ACIDEMIA WBC trending down 13K --> 11K On Clinda and Flagyl resolved RECENT INFLUENZA A, COPD EXACERBATION patient completing steroid taper and doxycycline tomorrow resume chronic dose of prednisone 10mg daily on 04/27 No more symptoms PAROXYSMAL A-FIB Rate on controlled now Convert back to NSR Received 1 dose of digoxin for uncontrolled HR/FIB CHADS2-VASc score equals 3. No a good candidate for anticoagulant due to falls Coumadin discontinued earlier in 2017 due to recurrent falls. On metoprolol to 25 mg twice daily and Cardizem Transition back to metoprolol XL 50 daily,Continue Cardizem 240 mg daily Not a good candidate for anticoagulant due to fall Follow up with cardiology as an outpatient No more AF -remains is SR Discharge home today HYPONATREMIA Na 131 today Possible related to poor intake since pt was NPO and clear liquid Starting on regular diet Monitor BMP-remains lower 130s ELECTROLYTES IMBALANCE Low K and low mag K and Mg stable continue monitor AMBULATORY DYSFUNCTION Hx of falls PT/OT ongoing DM Recent Hba1c 5.9 Controlled Hold oral agents Continue insulin sliding scale DVT PROPHYLAXIS -SQ heparin CODE STATUS FULL CODE DISPOSITION Transfer to medical Discharge today Vital Signs: Date Time Temp Pulse Resp B/P (MAP) Pulse Ox O2 Delivery O2 Flow Rate FiO2 04/30/17 08:00 Room Air 04/30/17 07:41 36.7 68 20 145/70 (95) 92 Room Air 04/30/17 07:27 65 16 95 Room Air 04/30/17 04:00 Room Air 04/30/17 03:54 36.8 62 18 149/73 (98) 94 Room Air 04/29/17 23:59 Room Air 04/29/17 23:17 36.8 66 17 152/67 (95) 92 Room Air 04/29/17 20:00 Room Air 04/29/17 19:52 68 16 94 Room Air 04/29/17 19:31 36.5 68 20 144/68 (93) 96 Room Air 04/29/17 16:00 Room Air 04/29/17 15:32 36.4 87 18 115/83 (94) 92 Room Air Lab Results: Results Past 24 Hours Test 04/29/17 11:13 04/29/17 16:55 04/29/17 20:19 04/30/17 03:56 Range/Units Bedside Glucose 189 125 151 103 70-90 mg/dl Test 04/30/17 06:47 Range/Units Bedside Glucose 113 70-90 mg/dl
[2017-04-30 11:17] VITALS: BP 145/70; PULSE 68; TEMP 36.7; O2SAT 92
[2017-04-30 11:23] VITALS: BP 145/76; PULSE 65; TEMP 36.6; O2SAT 95
--- NOTE | 2017-05-01 08:08 | Discharge Summary ---
Discharge Summary Date of Service May 01, 2017. Discharge Summary Admission Date: Apr 25, 2017 at 09:21 Discharge Date: Apr 30, 2017 Discharge Disposition: Home Principal Diagnosis: Partial Small Bowel Obstruction Secondary Diagnoses/Problems: Please see H&P and Hospital Progress note Consultations: Cardiology and Surgery Medication Reconciliation Continued Medications: Acetaminophen (Acetaminophen) 500 Mg Tab 2 TAB PO Q6 PRN for Pain or Fever Albuterol Hfa (Ventolin Hfa) 200 Puffs/39392 Mcg Aers 2 PUFFS INH Q4H PRN for SOB/Wheezing, #1 INHALER Aspirin (Aspirin Ec) 81 Mg Tab 81 MG PO DAILY Baclofen (Lioresal) 10 Mg Tab 10 MG PO AMPM, TAB Biotin (Biotin) 1,000 Mcg Tab 1000 MCG PO DAILY Budesonide (Pulmicort Respules 0.5MG/2ML) 0.5 Mg/2 Ml Nebu 2 ML INH BID Eexihqd-Osgmorgll-Vcoe (Calcium Magnesium & Zinc) 1 Tab Tab 1 TAB PO DAILY Cholecalciferol (Vitamin D3) 2,000 Unit Cap 2000 INTER.UNIT PO QAM Diltiazem Hcl Coated Beads (Cardizem Cd) 240 Mg Cap 240 MG PO QAM, CAP Docusate Sodium (Colace) 100 Mg Cap 100 MG PO BID, CAP Doxycycline (Monohydrate) (Doxycycline) 100 Mg Cap 100 MG PO BID PRN for copd rescue kit Furosemide (Lasix) 20 Mg Tab 20 MG PO BID PRN for edema, TAB Home O2 Therapy (Oxygen) Gas 2 LITERS NA HS Ipratropium-Albuterol (Duoneb) 3 Ml Nebu 1 TREATMENT INH Q4 PRN for SOB/Wheezing USE IN PLACE OF RESCUE INHALER patient prefers to use tid routinely Metformin Hcl (Glucophage) 1,000 Mg Tab 1000 MG PO BID Metoprolol Succinate (Metoprolol Succinate ER) 50 Mg Tabcr 50 MG PO QAM, #30 Omeprazole (Prilosec) 20 Mg Capcr 20 MG PO QAM TAKE THIS MEDICATION 30 MINUTES BEFORE FIRST MEAL OF THE DAY. Ondansetron Hcl (Zofran) 4 Mg Tab 4 MG PO Q6 PRN for Nausea Polyethylene Glycol 3350 (Miralax) 1 Pow Pow 17 GM PO DAILYBL Prednisone Tab (Prednisone) 10 Mg Tab 10 MG PO QAM, TAB Senna/Docusate Sod (Senokot S) 1 Tab Tab 1 TAB PO every afternoon Sertraline (Zoloft) 25 Mg Tab 25 MG PO DAILY, TAB Tramadol HCl (Tramadol HCl) 50 Mg Tab 50 MG PO Q6 PRN for back pain Zafirlukast (Accolate) 20 Mg Tab 20 MG PO BID ONE HOUR BEFORE OR TWO HOURS AFTER A MEAL. Discontinued Medications: Prednisone (Deltasone) 20 Mg Tab 20 MG PO UD PRN for COPD rescue kit TAKE 40 MG DAILY FOR 5 DAYS THEN START TAKING 20 MG DAILY FOR 5 DAYS. Admission Information HPI (per Admitting provider): 81 year old female who presents to the ED with abdominal pain and nausea. Patient reports her symptoms started last night. A little over a week ago patient started Prednisone and doxycycline COPD rescue kit. She was seen in the ED on 04/21 and diagnosed with influenza A. She feels like her respiratory symptoms are improving. Last night she developed epigastric and LLQ abdominal pain. She had severe nausea. She denies vomiting. Had a normal bowel movement last night. No BRBPR or dark tarry stools. Patient felt like her abdomen was more distended last night but feels like that is better today. She denies chest pain. She has some shortness of breath from her recent respiratory illness which is improving. She denies lightheadedness, dizziness, diaphoresis, or syncopal events. No fevers or chills. She denies urinary symptoms. In the ED, patient had a CT abd/pelvis that showed a partial SBO. Labs show mild leukocytosis and hyponatremia. Lactic acid is 2.9. Vitals are stable. Past Medical/Surgical History Medical Problems: (1) Arthritis Status: Chronic (2) Bronchiectasis Status: Chronic (3) COPD, severe Status: Chronic (4) GERD (gastroesophageal reflux disease) Status: Chronic (5) History of pseudo obstruction of colon Status: Chronic (6) HTN (hypertension) Status: Chronic (7) Hyperlipidemia Permanent Comment: statin intolerance Status: Chronic (8) Nocturnal hypoxemia Status: Chronic (9) Paroxysmal a-fib Status: Chronic (10) Pulmonary hypertension Status: Chronic (11) SBO (small bowel obstruction) Status: Chronic (12) Spinal stenosis Status: Chronic Surgical Problems: (1) H/O hernia repair Status: Chronic (2) H/O: hysterectomy Status: Chronic (3) History of cataract surgery Status: Chronic (4) History of cholecystectomy Status: Chronic (5) 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 Family History Diabetes mellitus MOTHER FH: CHF (congestive heart failure) MOTHER Social History Smoking Status: Never Smoker Alcohol Use: none Immunizations History of Influenza Vaccine: Yes Influenza Vaccine Date: Jan 04, 2017 History of Tetanus Vaccine?: Yes Tetanus Immunization Date: Nov 06, 2010 History of Pneumococcal: Yes Pneumococcal Date: Sep 23, 2014 Multi-Drug Resistant Organisms History of MDRO: No Allergies Coded Allergies: Ciprofloxacin (Verified Allergy, Intermediate, hives, itching, 04/25/17) Amoxicillin (Verified Allergy, Mild, itching,TOLERATING ZOSYN 01/04/14, 04/25) Clavulanic Acid (Verified Allergy, Mild, ITCHING,TOLERATING ZOSYN 01/04/14 , 04/25/17) Alendronate (Verified Adverse Reaction, Unknown, feet and hand pain, ) Levofloxacin (Verified Adverse Reaction, Unknown, muscle pain, 04/25/17) Home Medications Scheduled Aspirin (Aspirin Ec), 81 MG PO DAILY Baclofen (Lioresal), 10 MG PO AMPM Biotin (Biotin), 1,000 MCG PO DAILY Budesonide (Pulmicort Respules 0.5MG/2ML), 2 ML INH BID Aupacch-Lcfzcoeui-Vaos (Calcium Magnesium & Zinc), 1 TAB PO DAILY Cholecalciferol (Vitamin D3), 2,000 INTER.UNIT PO QAM Diltiazem Hcl Coated Beads (Cardizem Cd), 240 MG PO QAM Docusate Sodium (Colace), 100 MG PO BID Home O2 Therapy (Oxygen), 2 LITERS NA HS Metformin Hcl (Glucophage), 1,000 MG PO BID Metoprolol Succinate (Metoprolol Succinate ER), 50 MG PO QAM Omeprazole (Prilosec), 20 MG PO QAM Polyethylene Glycol 3350 (Miralax), 17 GM PO DAILYBL Prednisone Tab (Prednisone), 10 MG PO QAM Senna/Docusate Sod (Senokot S), 1 TAB PO every afternoon Sertraline (Zoloft), 25 MG PO DAILY Zafirlukast (Accolate), 20 MG PO BID Scheduled PRN Acetaminophen (Acetaminophen), 2 TAB PO Q6 PRN for Pain or Fever Albuterol Hfa (Ventolin Hfa), 2 PUFFS INH Q4H PRN for SOB/Wheezing Doxycycline (Monohydrate) (Doxycycline), 100 MG PO BID PRN for copd rescue kit Furosemide (Lasix), 20 MG PO BID PRN for edema Ipratropium-Albuterol (Duoneb), 1 TREATMENT INH Q4 PRN for SOB/Wheezing Ondansetron Hcl (Zofran), 4 MG PO Q6 PRN for Nausea Prednisone (Deltasone), 20 MG PO UD PRN for COPD rescue kit Tramadol HCl (Tramadol HCl), 50 MG PO Q6 PRN for back pain Review of Systems ROS per HPI, all other systems reviewed and negative Physical Ex - H&P Physical Exam Vital Signs Date Time Temp Pulse Resp B/P (MAP) Pulse Ox O2 Delivery O2 Flow Rate FiO2 04/25/17 09:47 78 22 131/61 93 04/25/17 09:32 93 Nasal Cannula 4.0 04/25/17 07:56 93 Nasal Cannula 4.0 04/25/17 07:55 69 20 130/64 87 Room Air 04/25/17 06:17 Room Air 04/25/17 05:54 36.7 75 24 136/67 92 Room Air General Appearance: WD/WN, no apparent distress Head: normocephalic, atraumatic Eyes: normal inspection, EOMI, sclerae normal ENT: hearing grossly normal, + pertinent finding (mucous membranes moist) Neck: supple, no JVD, trachea midline Respiratory/Chest: no respiratory distress, + pertinent finding (occasional scattered coarse breath sounds) Cardiovascular: regular rate, rhythm, no edema, normal peripheral pulses Abdomen/GI: normal bowel sounds, soft, + tenderness (LLQ), + distended Extremities/Musculoskelatal: normal inspection, no calf tenderness, normal capillary refill Neurologic/Psych: no motor/sensory deficits, alert, normal mood/affect, oriented x 3 Skin: normal color, warm/dry Diagnostics - H&P Diagnostics Laboratory Results Results Past 24 Hours Test 04/25/17 07:25 04/25/17 08:46 Range/Units White Blood Count 13.42 4.8-10.8 K/uL Red Blood Count 4.79 4.2-5.4 M/uL Hemoglobin 13.1 12.0-16.0 g/dL Hematocrit 41.2 37-47 % Mean Corpuscular Volume 86.0 80-100 fL Mean Corpuscular Hemoglobin 27.3 25-34 pg Mean Corpuscular Hemoglobin Concent 31.8 32-36 g/dl Platelet Count 236 130-400 K/uL Mean Platelet Volume 9.7 7.4-10.4 fL Neutrophils (%) (Auto) 82.5 % Lymphocytes (%) (Auto) 10.9 % Monocytes (%) (Auto) 5.7 % Eosinophils (%) (Auto) 0.3 % Basophils (%) (Auto) 0.1 % Neutrophils # (Auto) 11.08 1.4-6.5 K/uL Lymphocytes # (Auto) 1.46 1.2-3.4 K/uL Monocytes # (Auto) 0.76 0.11-0.59 K/uL Eosinophils # (Auto) 0.04 0-0.5 K/uL Basophils # (Auto) 0.01 0-0.2 K/uL RDW Standard Deviation 49.1 36.4-46.3 fL RDW Coefficient of Variation 15.5 11.5-14.5 % Immature Granulocyte % (Auto) 0.5 % Immature Granulocyte # (Auto) 0.07 0.00-0.02 K/uL Prothrombin Time 9.6 9.0-12.0 SECONDS Prothromb Time International Ratio 0.9 0.9-1.1 Activated Partial Thromboplast Time 22.6 21.0-31.0 SECONDS Partial Thromboplastin Ratio 0.9 Sodium Level 133 136-145 mmol/L Potassium Level 3.8 3.5-5.1 mmol/L Chloride Level 96 98-107 mmol/L Carbon Dioxide Level 29 21-32 mmol/L Anion Gap 8.0 3-11 mmol/L Blood Urea Nitrogen 23 7-18 mg/dl Creatinine 0.79 0.60-1.20 mg/dl Est Creatinine Clear Calc Drug Dose 49.9 ml/min Estimated GFR () 82.5 Estimated GFR (Non- 71.2 BUN/Creatinine Ratio 29.4 10-20 Random Glucose 104 70-99 mg/dl Calcium Level 9.3 8.5-10.1 mg/dl Total Bilirubin 0.6 0.2-1 mg/dl Direct Bilirubin 0.1 0-0.2 mg/dl Aspartate Amino Transf (AST/SGOT) 18 15-37 U/L Alanine Aminotransferase (ALT/SGPT) 27 12-78 U/L Alkaline Phosphatase 58 45-117 U/L Total Protein 6.4 6.4-8.2 gm/dl Albumin 2.9 3.4-5.0 gm/dl Lipase 85 73-393 U/L Lactic Acid Level 2.9 0.4-2.0 mmol/L Diagnostic Radiology CXR IMPRESSION: 1. Progressive pelvic atelectasis left base. 2. Stable chronic and postoperative change CT ABD/PELVIS IMPRESSION: 1. Partial distal small bowel obstruction of uncertain etiology. 2. An obstructing mass or lesion is not appreciated. The possibility of adhesions versus nonvisualized internal hernia. 3. Extensive chronic changes as noted with no additional acute abnormality. Impression - H&P Impression Assessment and Plan PARTIAL SBO - admit to med/surg - patient presenting with nausea and abdominal pain; in the ED, CT abd/pelvis showing partial SBO - ? 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) however patient is on chronic steroids - no obvious signs of infection - check urine - IVF, follow lactic acid levels RECENT INFLUENZA A, COPD EXACERBATION - patient completing steroid taper and doxycycline tomorrow - patient reports improvement in respiratory symptoms, no wheezing on exam - resume chronic dose of prednisone 10mg daily on 04/27 - continue home inhalers PAROXYSMAL A-FIB - HR auscultates regular on exam - rate controlled on metoprolol and diltiazem - continue both - not anticoagulated due to fall risk DM - hgb a1c 8.5 - hold oral agents and utilize SSI while hospitalized - update hgb a1c in AM DVT PROPHYLAXIS - SQ heparin CODE STATUS - Patient is a full code as per my discussion with her. DISPO - In my clinical judgment this beneficiary meets acute admission criteria, established by [facility], that includes being hospitalized through two midnights. Advanced Directives Existing Living Will: Yes Existing Power of Construction Project Assistant: Yes VTE Prophylaxis VTE Risk Assessment Done? Y/N: Yes Risk Level: Moderate Physical Exam (per Admitting): General Appearance: WD/WN, no apparent distress Head: normocephalic, atraumatic Eyes: normal inspection, EOMI, sclerae normal ENT: hearing grossly normal, + pertinent finding (mucous membranes moist) Neck: supple, no JVD, trachea midline Respiratory/Chest: no respiratory distress, + pertinent finding (occasional scattered coarse breath sounds) Cardiovascular: regular rate, rhythm, no edema, normal peripheral pulses Abdomen/GI: normal bowel sounds, soft, + tenderness (LLQ), + distended Extremities/Musculoskelatal: normal inspection, no calf tenderness, normal capillary refill Neurologic/Psych: no motor/sensory deficits, alert, normal mood/affect, oriented x 3 Skin: normal color, warm/dry Hospital Course PARTIAL SBO Present on admission with abdominal pain and nausea CT abd/pelvis showed Partial distal small bowel obstruction of uncertain etiology. Has had NGT suction and later taken out Appreciate surgery input Repeat abd xray showed moderate left abdominal small bowel ileus with small bowel distention slightly improved compared to the prior study. Continue Clinda and Flagyl.Finished 5 days course of antibiotics Repeat abdominal Xray showed diminished small bowel dilatation. 04/27/17 Tolerated clears and now on regular diet Discharged today Enterococcus Faecalis UTI Received 5 days course of Clindamycin and Flagyl Remains asymptomatic LACTIC ACIDEMIA WBC trending down 13K --> 11K On Clinda and Flagyl resolved RECENT INFLUENZA A, COPD EXACERBATION patient completing steroid taper and doxycycline tomorrow resume chronic dose of prednisone 10mg daily on 04/27 No more symptoms PAROXYSMAL A-FIB Rate on controlled now Convert back to NSR Received 1 dose of digoxin for uncontrolled HR/FIB CHADS2-VASc score equals 3. No a good candidate for anticoagulant due to falls Coumadin discontinued earlier in 2017 due to recurrent falls. On metoprolol to 25 mg twice daily and Cardizem Transition back to metoprolol XL 50 daily,Continue Cardizem 240 mg daily Not a good candidate for anticoagulant due to fall Follow up with cardiology as an outpatient No more AF -remains is SR Discharge home today HYPONATREMIA Na 131 today Possible related to poor intake since pt was NPO and clear liquid Starting on regular diet Monitor BMP-remains lower 130s ELECTROLYTES IMBALANCE Low K and low mag K and Mg stable continue monitor AMBULATORY DYSFUNCTION Hx of falls PT/OT ongoing DM Recent Hba1c 5.9 Controlled Hold oral agents Continue insulin sliding scale DVT PROPHYLAXIS -SQ heparin CODE STATUS FULL CODE DISPOSITION Transfer to medical Discharge today Total time spent on discharge = 35 minutes This includes examination of the patient, discharge planning, medication reconciliation, and communication with other providers. Discharge Instructions Date of Service Apr 29, 2017. Admission Reason for Admission: Partial Small Bowel Obstruction Discharge Discharge Diagnosis / Problem: SBO Discharge Goals Goal(s): Prevent Disease Progression Activity Recommendations Activity Limitations: resume your previous activity . Instructions / Follow-Up Instructions / Follow-Up Dr Torre on 05/03/17 at 12:15PM and Dr Brantley on 05/15/17 at 1:00PM Current Hospital Diet Patient's current hospital diet: Diabetes Type 2 Diet, Regular Diet Discharge Diet Recommended Diet: Diabetes Type 2 Diet Pending Studies Studies pending at discharge: no Laboratory Results Hemoglobin A1c Test 04/26/17 01:37 Range/Units Estimated Average Glucose 123 mg/dl Hemoglobin A1c 5.9 H 4.5-5.6 % Medical Emergencies . Who to Call and When: Medical Emergencies: If at any time you feel your situation is an emergency, please call 911 immediately. . Non-Emergent Contact Non-Emergency issues call your: Primary Care Provider . 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 "Provider Documentation" section prepared by Hayden Contreras. . VTE Core Measure Inpt VTE Proph given/why not?: Unfractionated heparin SQ <Electronically signed by Hayden Contreras M.D.> Signed: 04/29/17 1401 Additional Copies To Mamadou Torre M.D. ([facility])
== END 2017-04-30 13:45 | disposition home health service (06) | DRG 388 ==
LOC: C.EDB 05:54 → C.MSW 09:21 → ENRESERV 09:46 → C.2T 04-26 06:03 → EDBEDREQSVC 04-28 12:01 → ENRESERV 04-28 12:27 → C.MS2W 04-28 13:48 → ENRESERV 04-29 14:51 → C.2T 04-29 15:22
PROVIDERS: ADMIT Internal Medicine; ATTEND Internal Medicine
DX: K56.600 Partial intestinal obstruction, unspecified as to cause (principal); J96.21 Acute and chronic respiratory failure with hypoxia; J44.1 Chronic obstructive pulmonary disease with (acute) exacerbation; E87.2 Acidosis; E87.1 Hypo-osmolality and hyponatremia; E11.22 Type 2 diabetes mellitus with diabetic chronic kidney disease; N18.3 Chronic kidney disease, stage 3 (moderate); K21.9 Gastro-esophageal reflux disease without esophagitis; I12.9 Hypertensive chronic kidney disease with stage 1 through stage 4 chronic kidney disease, or unspecified chronic kidney disease; E78.5 Hyperlipidemia, unspecified; I48.0 Paroxysmal atrial fibrillation; Z79.52 Long term (current) use of systemic steroids; Z79.82 Long term (current) use of aspirin; Z79.84 Long term (current) use of oral hypoglycemic drugs; Z79.899 Other long term (current) drug therapy; Z88.1 Allergy status to other antibiotic agents; Z91.81 History of falling; Z99.81 Dependence on supplemental oxygen; Z83.3 Family history of diabetes mellitus

== ENCOUNTER 2019-02-08 17:19 | Inpatient (IN) ==
--- OUTSIDE RECORDS SUMMARY | 2019-02-08 17:22 | External Medical Summary | Continuity of Care Document ---
:1935 Author Name Hedy Casanova Address Unavailable Unavailable , Care Team Providers Name Role Phone NonMNPG M.D. Unavailable [email or web address] Jay HERNANDES Unavailable Unavailable Unavailable Unavailable Unavailable Problems Bronchiectasis (494.0) (J47.9) Lumbago (724.2) (M54.5) GERD (gastroesophageal reflux disease) (530.81) (K21.9) Hyperlipidemia (272.4) (E78.5) Osteoporosis (733.00) (M81.0) CKD (chronic kidney disease), stage III (585.3) (N18.3) Spinal stenosis (724.00) (M48.00) COPD (chronic obstructive pulmonary disease) (496) (J44.9) Atrial fibrillation (427.31) (I48.91) Asthma (493.90) (J45.909) Allergies and Adverse Reactions alendronate (Allergy) Amoxicillin CAPS (Allergy) ciprofloxacin (Allergy) levofloxacin (Allergy) Medications Accolate 20 MG Oral Tablet; TAKE 1 TABLET TWICE DAILY. Refills: 0 traMADol HCl TABS; TAKE 100MG EVERY 6 HOURS NEEDED Refills: 0 MiraLax POWD Refills: 0 Oxygen Refills: 0 Omeprazole 20 MG Oral Capsule Delayed Release; TAKE 1 CAPSUL E DAILY. Refills: 0 DuoNeb 0.5-2.5 (3) MG/3ML SOLN Refills: 0 Flaxseed Oil CAPS; Take 1 capsule twice daily Refills: 0 Docusate Sodium 100 MG Oral Capsule; TAKE 1 CAPSULE TWICE DA MITCH. Refills: 0 DilTIAZem CD 120 MG CP24; TAKE 1 CAPSULE DAILY. Refills: 0 Vitamin D3 50 MCG (2000 UT) Oral Capsule; TAKE 1 CAPSULE Ericka ly Refills: 0 Sxmxbpi-Lqypjssmg-Tsjd Oral Tablet; Take 1 tablet twice deondre y Refills: 0 Pulmicort 0.5 MG/2ML Inhalation Suspension Refills: 0 Biotin 1000 MCG Oral Tablet; Take 1 daily Refills: 0 Baclofen 10 MG Oral Tablet; TAKE 1 TABLET AT BEDTIME Refills: 0 ProAir HFA AERS; INHALE 2 PUFFS EVERY 6 HOURS NEEDED Refills: 0 Acetaminophen 500 MG CAPS; TAKE 2 CAPSULES EVERY 8 HOURS Refills: 0 levoFLOXacin 750 MG Oral Tablet; TAKE 1 TABLET DAILY. Refills: 0 predniSONE 10 MG Oral Tablet Refills: 0 Procedures Procedures not documented Immunizations Immunizations not documented Family History Unknown Family Member Family history of lung disease (V19.8) Status: Active C omments: Family History (Z83.6) Family history of diabetes mellitus (V18.0) Status: Active Comments: Family History (Z83.3) Family history of congestive heart failure Status: Active Comments: Family History (V17.49) (Z82.49) Family history of Emphysema, unspecified Status: Active Comments: Family History (492.8) (J43.9) Family history of Asthma with COPD (493.20) Status: Active Comments: Family History (J44.9) Family history of High cholesterol (272.0) Status: Active Comments: Family History (E78.00) Family history of [place] [employer] lung (500) Status: Active Comments: Family History (J60) Mother Family history of lung disease (V19.8) (Z83.6) Status: Activ e Family history of diabetes mellitus (V18.0) (Z83.3) Status: Active Family history of congestive heart failure (V17.49) (Z82.49) Status: Active Father Family history of Emphysema, unspecified (492.8) (J43.9) Sta tus: Active Sister Family history of Asthma with COPD (493.20) (J44.9) Status: Active Family history of High cholesterol (272.0) (E78.00) Status: Active Brother Family history of [place] miners[place] lung (500) (J60) Status: Acti ve Social History - Smoking Status Never smoker Plan of Treatment Planned Observations Planned Goals not documented Results No Known Results Results not documented
[2019-02-08] MEDS ORDERED: SODIUM CHLORIDE 0.9% 1000ML 1,000 ML IV STA (18:49)
[2019-02-08] MEDS ORDERED: SODIUM CHLORIDE 0.9% 1000ML 1,000 ML IV ONE (18:49)
[2019-02-08] MEDS ORDERED: ALBUT/IPRATROP 3MG/0.5MG NEB 3 ML VIAL NEB STA (19:11)
[2019-02-08 19:56] LABS: Alanine Aminotransferase 23 U/L (12-78); Albumin Level 2.7 gm/dl (3.4-5.0); Blood Urea Nitrogen 24 mg/dl (7-18); Calcium 8.5 mg/dl (8.5-10.1); Carbon Dioxide 26 mmol/L (21-32); Chloride 107 mmol/L (98-107); Est GFR (African American) 78.9; Est GFR (Non-African American) 68.1; Glucose 109 mg/dl (70-99); Lipase 41 U/L (73-393); Sodium 138 mmol/L (136-145)
[2019-02-08 20:00] LABS: Albumin Globulin Ratio 0.8 (0.9-2); Alkaline Phosphatase 47 U/L (45-117); Bilirubin,Total 0.8 mg/dl (0.2-1); Globulin 3.2 gm/dl (2.5-4.0); Total Protein 5.9 gm/dl (6.4-8.2); Troponin I < 0.015 ng/ml (0-0.045)
[2019-02-08 20:05] LABS: Basophils # (auto) 0.03 K/uL (0-0.2); Basophils % (auto) 0.2 %; Eosinophils # (auto) 0.12 K/uL (0-0.5); Eosinophils % (auto) 0.9 %; Hematocrit (blood only) 36.7 % (37-47); Immature Granulocytes # (auto) 0.04 K/uL (0.00-0.02); Immature Granulocytes % (auto) 0.3 %; Lymphocytes # (auto) 1.21 K/uL (1.2-3.4); Lymphocytes % (auto) 9.2 %; Mean Corpuscular Hemoglobin 26.7 pg (25-34); Mean Corpuscular Volume 89.1 fL (80-100); Mean Platelet Volume 9.6 fL (7.4-10.4); Monocytes # (auto) 1.34 K/uL (0.11-0.59); Monocytes % (auto) 10.2 %; Neutrophils # (auto) 10.43 K/uL (1.4-6.5); Neutrophils % (auto) 79.2 %; Platelet Count 247 K/uL (130-400); RDW Coefficient of Variation 15.2 % (11.5-14.5); RDW Standard Deviation 49.5 fL (36.4-46.3); Red Blood Count 4.12 M/uL (4.2-5.4); White Blood Count 13.17 K/uL (4.8-10.8)
[2019-02-08 20:17] LABS: Potassium 4.3 mmol/L (3.5-5.1)
[2019-02-08 20:35] LABS: Appearance Urine Clear (Clear); Bilirubin Urine Negative (Negative); Blood Urine Negative (Negative); Color Urine Yellow; Glucose Urine UA Negative (Negative); Ketones Urine Negative (Negative); Leukocyte Esterase Urine Negative (Negative); Nitrite Urine Negative (Negative); Protein Urine Negative (Negative); Specific Gravity Urine 1.025 (1.000-1.030); Urobilinogen Urine Negative (Negative)
--- NOTE | 2019-02-08 20:39 | CT Scan Report ---
ABDOMEN AND PELVIS CT WITHOUT CONTRAST CT DOSE: 512.17 mGy.cm HISTORY: vomiting TECHNIQUE: Multiaxial CT images of the abdomen and pelvis were performed without contrast. A dose lo wering technique was utilized adhering to the principles of ALARA. COMPARISON STUDY: Abdomen and pelvis CT 07/30/2018. FINDINGS: Stable scarlike densities within the right lung base with peripherally calcified lesion at the right lung base. No pneumoperitoneum. No pneumatosis. No suspicious lytic or blastic osseous lesi ons. Cholecystectomy. The unenhanced liver, spleen, adrenal glands, and pancreas are unremarkable. Th ere is a punctate nonobstructing stone within the right kidney. Normal left kidney. No hydronephrosis . No retroperitoneal lymphadenopathy. Suboptimal evaluation for bowel pathology due to the lack of in travenous and oral contrast. However, there is no definite bowel wall thickening or obstruction. Mode rate stool seen throughout the colon. Persistent lower midline ventral hernia with evidence for prior mesh repair. This remains unchanged. The bladder is unremarkable. Central mesenteric edema, unchange d. IMPRESSION: 1. No definite bowel wall thickening or obstruction. 2. Liquid stool within the colon. This raises the possibility of a gastroenteritis. 3. Right-sided nephrolithiasis. No evidence for hydronephrosis. 4. No change in the midline ventral hernia with evidence for prior mesh repair. 4. Mild central mesenteric edema. This is nonspecific and unchanged. Electronically signed by: Wenceslao Richardson M.D. 02/08/2019 8:38 PM
--- NOTE | 2019-02-08 22:57 | Emergency Department Note ---
Entered by Anastasiya Zambrano acting as a scribe for Torres Barrera MD ED Provider Note CHIEF COMPLAINT: Nausea and Vomiting. HISTORY OF PRESENT ILLNESS: The patient is a 83 year old female who presents to the Emergency Room with c omplaints of nausea and vomiting that started yesterday afternoon. The patient reports that she has had nausea and vomiting for the past day. She reports that she has had multiple episodes of vomiting and diarrhea today. The patient states that she has abdominal pain. She states that she has chest pain and shortness of breath. The family mentions that the patient has chronic COPD, but has not had her breathing treatment today. They note that the patient has a history of hernia repair and bowel obstruction. They state that the patient was given Zofran at 1700 today, but threw it up. Pt denies LOC, headache, fevers, chills, diaphoresis, visual changes, neck pain, abdominal pain, back pain, melena, hematochezia, urinary symptoms, numbness, weakness, lymphadenopathy, rash, or other complaints. REVIEW OF SYSTEMS: See HPI for pertinent positives and negatives. A total of ten systems were reviewed and were otherwise negative. PMHx/PSHx: COPD, HTN, hernia repair, and bowel obstruction. SOCIAL HISTORY: Patient lives at home. PHYSICAL EXAM: GENERAL: Awake, alert, tired-appearing, in no distress HENT: Normocephalic, atraumatic. Oropharynx unremarkable. Dry mucous membranes. EYES: PERRL. Normal conjunctiva. Sclera non-icteric. NECK: Inspection normal. Non-tender. Supple. No nuchal rigidity. FROM. No masses. RESPIRATORY: Clear to auscultation. No wheezes. No rales. Normal respiratory effort. CARDIAC: Normal rate. Normal rhythm. No murmurs. No rubs. Extremities warm and well perfused. Pulses equal. No JVD. GI: Soft, non-distended. Mild abdominal discomfort. No rebound or guarding. No masses. RECTAL: Deferred. MUSCULOSKELETAL: Atraumatic. Chest examination reveals no tenderness. The back is symmetrical on inspection without obvious abnormality. There is no CVA tenderness to palpation. No joint edema. LOWER EXTREMITIES: Calves are equal size bilaterally and non-tender. No edema. No discoloration. NEURO: Normal sensorium. No sensory or motor deficits noted. SKIN: No rash or jaundice noted. EMERGENCY DEPARTMENT COURSE: 1906: The patient was evaluated in room A4B, and a complete history and physical examination were performed. 2099: I reevaluated the patient and discussed her findings. The patient is feeling better, I recommended further management in the hospital and they agreed with the treatment plan. 2129: I reviewed the patient's case with Dr. Bill Raman Hospitalist. He will evaluate the patient for further management. MEDICAL DECISION MAKING: A4 Triage Nursing notes reviewed and agree them. Additional history obtained from the family. The patient's history was concerning for nausea, vomiting, diarrhea, and abdominal pain. Differential diagnosis: Etiologies such as gastroenteritis, food borne illness, infections, appendicitis, diverticulitis, inflammatory bowel disease, GI bleed, biliary pathology, as well as others were entertained. Physical examination findings: As well. The patient clinically appears dehydrated. She was tired and appeared exhausted. ER treatment provided: IV hydration with normal saline. On reassessment the patient felt somewhat better. Patient was tolerating p.o. intake. Diagnostics interpretation by me: ECG: There were some subtle T wave changes however no ST elevation. The labs revealed a moderate leukocytosis on CBC. Anemia present. Dehydration and chemistry panel. Troponin, LFTs and lipase negative. Urinalysis negative. Imaging studies: CT scan of the abdomen pelvis was performed and revealed significant amount of fluid throughout the bowel consistent with an enteritis. No other emergent pathology noted. No obstruction. Patient is dehydrated and exhausted. She was not doing well at home. She needs hydration and further management in the hospital. Consultation: A consultation was placed with the hospitalist. The case was discussed and [facility] were reviewed. The patient was evaluated in the ER for further treatment. IMPRESSION: Nausea, vomiting, diarrhea, dehydration, and weakness. PLAN: Admitted. The scribe's documentation has been prepared under my direction and personally reviewed by me in its entirety. I confirm that the note above accurately reflects all work, treatment, procedures, and medical decision making performed by me. 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" History of cataract surgery (Chronic) H/O hernia repair (Chronic) Family History Other Family history non-contributory Social History marital status: Current Living Situation: Family current occupational status: retired Feels Safe at Home: Yes Smoking Status: Never smoker Results & Data Vital Signs Vital Signs - 24 hr 02/08/19 17:35 02/08/19 18:49 02/08/19 19:19 Temperature 37.2 C Temperature Source Oral Sepsis Recent Fever Within 48 Hours No Sepsis Action Taken by Nursing No Action Required Pulse Rate 71 Pulse Rate [Apical] 73 Pulse Rhythm Regular Pulse Rhythm [Apical] Regular Pulse Strength Normal Pulse Strength [Apical] Normal Respiratory Rate 20 18 Respiratory Effort / Characteristics Non-Labored Spontaneous Non-Labored Spontaneous Respiratory Depth Normal Normal Respiratory Pattern Regular Regular Blood Pressure 125/62 Blood Pressure Mean 83 Blood Pressure Position Sitting Pulse Oximetry 92 88 L 99 Oxygen Delivery Method Room Air Room Air Nasal Cannula Oxygen Flow Rate 2 02/08/19 19:32 Temperature Temperature Source Sepsis Recent Fever Within 48 Hours Sepsis Action Taken by Nursing Pulse Rate Pulse Rate [Apical] 73 Pulse Rhythm Pulse Rhythm [Apical] Pulse Strength Pulse Strength [Apical] Respiratory Rate 22 Respiratory Effort / Characteristics Spontaneous Respiratory Depth Respiratory Pattern Blood Pressure Blood Pressure Mean Blood Pressure Position Pulse Oximetry 98 Oxygen Delivery Method Nasal Cannula Oxygen Flow Rate 2 Home Medications Current Medication List: was personally reviewed by me Laboratory Data Attestation: I reviewed the patient's lab results. Result diagrams: 02/08/19 19:58 02/08/19 19:58 Lab Results 02/08/19 02/08/19 02/08/19 Range/Units 19:27 19:27 19:58 WBC Cancelled 13.17 H RBC Cancelled 4.12 L Hgb Cancelled 11.0 L Hct Cancelled 36.7 L MCV Cancelled 89.1 MCH Cancelled 26.7 MCHC Cancelled 30.0 L RDW Std Deviation Cancelled 49.5 H RDW Coeff of Shahriar Cancelled 15.2 H Plt Count Cancelled 247 MPV Cancelled 9.6 Immature Gran % (Auto) Cancelled 0.3 Neut % (Auto) Cancelled 79.2 Lymph % (Auto) Cancelled 9.2 [place] % (Auto) Cancelled 10.2 Eos % (Auto) Cancelled 0.9 Baso % (Auto) Cancelled 0.2 Immature Gran # (Auto) Cancelled 0.04 H Neut # (Auto) Cancelled 10.43 H Lymph # (Auto) Cancelled 1.21 [place] # (Auto) Cancelled 1.34 H Eos # (Auto) Cancelled 0.12 Baso # (Auto) Cancelled 0.03 Absolute Nucleated RBC Cancelled Nucleated RBC % (auto) Cancelled Neutrophils % (Manual) Cancelled Band Neutrophils % Cancelled Lymphocytes % (Manual) Cancelled Prolymphocyte % Cancelled Reactive Lymphs % (Man) Cancelled Monocytes % (Manual) Cancelled Eosinophils % (Manual) Cancelled Basophils % (Manual) Cancelled Metamyelocytes % (Man) Cancelled Myelocytes % (Man) Cancelled Promyelocytes % (Man) Cancelled Blast Cells % (Manual) Cancelled Plasma Cell % (Manual) Cancelled Other Cells % Cancelled Nucleated RBC % Cancelled Neutrophils # (Manual) Cancelled Band Neutrophils # Cancelled Total Absolute Neuts Cancelled Lymphocytes # (Manual) Cancelled Prolymphocyte # Cancelled Reactive Lymphs # Cancelled Total Abs Lymphocytes Cancelled Monocytes # (Manual) Cancelled Eosinophils # (Manual) Cancelled Basophils # (Manual) Cancelled Metamyelocytes # (Man) Cancelled Myelocytes # (Manual) Cancelled Promyelocytes # (Man) Cancelled Blast Cells # (Man) Cancelled Plasma Cell # (Manual) Cancelled Other Cells # Cancelled Nucleated RBCs # (Man) Cancelled Hypersegmented Neuts Cancelled Hyposegmented Neuts Cancelled Hypogranular Neuts Cancelled Large Granular Lymphs Cancelled # Lrg Granular Lymphs Cancelled Hairy Cells Cancelled Smudge Cells Cancelled Toxic Granulation Cancelled Toxic Vacuolation Cancelled Dohle Bodies Cancelled Salvatore Rods Cancelled Platelet Estimate Cancelled Hypogranular Platelets Cancelled Clumped Platelets Cancelled Giant Platelets Cancelled Platelet Satelliting Cancelled RBC Morphology Cancelled Polychromasia Cancelled Hypochromasia Cancelled Poikilocytosis Cancelled Basophilic Stippling Cancelled Anisocytosis Cancelled Microcytosis Cancelled Macrocytosis Cancelled Spherocytes Cancelled Pappenheimer Bodies Cancelled Sickle Cells Cancelled Target Cells Cancelled Tear Drop Cells Cancelled Ovalocytes Cancelled Stomatocytes Cancelled [place] Bodies Cancelled Echinocytes Cancelled Acanthocytes (Spur) Cancelled Rouleaux Cancelled RBC Agglutinates Cancelled Schistocytes Cancelled RBC Morph Comment Cancelled Sezary Cell Cancelled Sodium 138 (136-145) mmol/L Potassium (3.5-5.1) mmol/L Chloride 107 (98-107) mmol/L Carbon Dioxide 26 (21-32) mmol/L Anion Gap 5.0 (3-11) BUN 24 H (7-18) mg/dl Creatinine 0.81 (0.6-1.2) mg/dl Est Cr Clr Drug Dosing 47.0 ml/min Est GFR ( Amer) 78.9 Est GFR (Non-Af Amer) 68.1 BUN/Creatinine Ratio 29.0 H (10-20) Glucose 109 H (70-99) mg/dl Calcium 8.5 (8.5-10.1) mg/dl Total Bilirubin 0.8 (0.2-1) mg/dl AST (15-37) U/L ALT 23 (12-78) U/L Alkaline Phosphatase 47 (45-117) U/L Troponin I < 0.015 (0-0.045) ng/ml Total Protein 5.9 L (6.4-8.2) gm/dl Albumin 2.7 L (3.4-5.0) gm/dl Globulin 3.2 (2.5-4.0) gm/dl Albumin/Globulin Ratio 0.8 L (0.9-2) Lipase 41 L (73-393) U/L Urine Color Urine Appearance (Clear) Urine pH (4.5-7.5) Ur Specific Denio (1.000-1.030) Urine Protein (Negative) Urine Glucose (UA) (Negative) Urine Ketones (Negative) Urine Blood (Negative) Urine Nitrite (Negative) Urine Bilirubin (Negative) Urine Urobilinogen (Negative) Ur Leukocyte Esterase (Negative) 02/08/19 02/08/19 Range/Units 19:58 20:10 WBC RBC Hgb Hct MCV MCH MCHC RDW Std Deviation RDW Coeff of Shahriar Plt Count MPV Immature Gran % (Auto) Neut % (Auto) Lymph % (Auto) [place] % (Auto) Eos % (Auto) Baso % (Auto) Immature Gran # (Auto) Neut # (Auto) Lymph # (Auto) [place] # (Auto) Eos # (Auto) Baso # (Auto) Absolute Nucleated RBC Nucleated RBC % (auto) Neutrophils % (Manual) Band Neutrophils % Lymphocytes % (Manual) Prolymphocyte % Reactive Lymphs % (Man) Monocytes % (Manual) Eosinophils % (Manual) Basophils % (Manual) Metamyelocytes % (Man) Myelocytes % (Man) Promyelocytes % (Man) Blast Cells % (Manual) Plasma Cell % (Manual) Other Cells % Nucleated RBC % Neutrophils # (Manual) Band Neutrophils # Total Absolute Neuts Lymphocytes # (Manual) Prolymphocyte # Reactive Lymphs # Total Abs Lymphocytes Monocytes # (Manual) Eosinophils # (Manual) Basophils # (Manual) Metamyelocytes # (Man) Myelocytes # (Manual) Promyelocytes # (Man) Blast Cells # (Man) Plasma Cell # (Manual) Other Cells # Nucleated RBCs # (Man) Hypersegmented Neuts Hyposegmented Neuts Hypogranular Neuts Large Granular Lymphs # Lrg Granular Lymphs Hairy Cells Smudge Cells Toxic Granulation Toxic Vacuolation Dohle Bodies Salvatore Rods Platelet Estimate Hypogranular Platelets Clumped Platelets Giant Platelets Platelet Satelliting RBC Morphology Polychromasia Hypochromasia Poikilocytosis Basophilic Stippling Anisocytosis Microcytosis Macrocytosis Spherocytes Pappenheimer Bodies Sickle Cells Target Cells Tear Drop Cells Ovalocytes Stomatocytes [place] Bodies Echinocytes Acanthocytes (Spur) Rouleaux RBC Agglutinates Schistocytes RBC Morph Comment Sezary Cell Sodium (136-145) mmol/L Potassium 4.3 (3.5-5.1) mmol/L Chloride (98-107) mmol/L Carbon Dioxide (21-32) mmol/L Anion Gap (3-11) BUN (7-18) mg/dl Creatinine (0.6-1.2) mg/dl Est Cr Clr Drug Dosing ml/min Est GFR ( Amer) Est GFR (Non-Af Amer) BUN/Creatinine Ratio (10-20) Glucose (70-99) mg/dl Calcium (8.5-10.1) mg/dl Total Bilirubin (0.2-1) mg/dl AST 26 (15-37) U/L ALT (12-78) U/L Alkaline Phosphatase (45-117) U/L Troponin I (0-0.045) ng/ml Total Protein (6.4-8.2) gm/dl Albumin (3.4-5.0) gm/dl Globulin (2.5-4.0) gm/dl Albumin/Globulin Ratio (0.9-2) Lipase (73-393) U/L Urine Color Yellow Urine Appearance Clear (Clear) Urine pH 6.0 (4.5-7.5) Ur Specific Denio 1.025 (1.000-1.030) Urine Protein Negative (Negative) Urine Glucose (UA) Negative (Negative) Urine Ketones Negative (Negative) Urine Blood Negative (Negative) Urine Nitrite Negative (Negative) Urine Bilirubin Negative (Negative) Urine Urobilinogen Negative (Negative) Ur Leukocyte Esterase Negative (Negative) Administered Medications Sodium Chloride (Nss 1000ml) 1,000 mls @ 125 mls/hr IV .Q8H STA Stop: 02/09/19 02:48 Last Admin: 02/08/19 20:19 Dose: 125 mls/hr Documented by: [id number] Discontinued Medications Albuterol (Duoneb) 3 ml NEB NOW STA Stop: 02/08/19 19:12 Last Admin: 02/08/19 19:29 Dose: 3 ml Documented by: [id number] Sodium Chloride (Nss 1000ml) 1,000 mls @ 999 mls/hr IV .Q1H1M ONE Stop: 02/08/19 19:49 Last Infusion: 02/08/19 22:25 Dose: 0 mls/hr Documented by: [id number] Admin: 02/08/19 20:19 Dose: 999 mls/hr Documented by: [id number] Imaging Data Radiologist's Impression: Radiology results as stated below per my review and the radiologist's interpretation: ABDOMEN AND PELVIS CT WITHOUT CONTRAST CT DOSE: 512.17 mGy.cm HISTORY: vomiting TECHNIQUE: Multiaxial CT images of the abdomen and pelvis were performed without contrast. A dose lowering technique was utilized adhering to the principles of ALARA. COMPARISON STUDY: Abdomen and pelvis CT 07/30/2018. FINDINGS: Stable scarlike densities within the right lung base with peripherally calcified lesion at the right lung base. No pneumoperitoneum. No pneumatosis. No suspicious lytic or blastic osseous lesions. Cholecystectomy. The unenhanced liver, spleen, adrenal glands, and pancreas are unremarkable. There is a punctate nonobstructing stone within the right kidney. Normal left kidney. No hydronephrosis. No retroperitoneal lymphadenopathy. Suboptimal evaluation for bowel pathology due to the lack of intravenous and oral contrast. However, there is no definite bowel wall thickening or obstruction. Moderate stool seen throughout the colon. Persistent lower midline ventral hernia with evidence for prior mesh repair. This remains unchanged. The bladder is unremarkable. Central mesenteric edema, unchanged. IMPRESSION: 1. No definite bowel wall thickening or obstruction. 2. Liquid stool within the colon. This raises the possibility of a gastroenteritis. 3. Right-sided nephrolithiasis. No evidence for hydronephrosis. 4. No change in the midline ventral hernia with evidence for prior mesh repair. 4. Mild central mesenteric edema. This is nonspecific and unchanged. Electronically signed by: Wenceslao Richardson M.D. 02/08/2019 8:38 PM ECG Data Attestation: I personally reviewed and interpreted this ECG as follows: Indication: vomiting Rate (beats per minute): 73 Rhythm: normal sinus Findings: + Q waves and + T-wave inversion Comparison ECG Date: from (04/29/17) Change: the following changes noted (more pronounced sinus, replaced an atrial fibrillation) Blood Pressure Blood Pressure Findings: Normal blood pressure Blood Pressure Disposition: did not require urgent referral Discharge Plan Visit Data Chief Complaint: Vomiting ED Provider: Torres Barrera Discharge Problem: Nausea & vomiting, Diarrhea, Dehydration, Weakness Patient Disposition: Being Evaluated by Hospitalist Forms Stand Alone Forms: My [facility] Prescriptions Prescriptions: No Action ranitidine HCl 300 mg Tablet 300 mg PO QPM RF: 0 montelukast [Singulair] 10 mg Tablet 10 mg PO QAM RF: 0 sennosides [Senokot] 8.6 mg Tablet 8.6 mg PO QDL RF: 0 prednisone 10 mg Tablet 10 mg PO QAM RF: 0 doxycycline hyclate 100 mg Capsule 100 mg PO DAILY PRN (Reason: breathing rescue kit) RF: 0 ipratropium-albuterol 0.5 mg-3 mg(2.5 mg base)/3 mL Solution For Nebulization 3 ml INHALATION Q6H PRN (Reason: Shortness Of Breath Or Wheezing) RF: 0 metoprolol succinate [Toprol XL] 50 mg Tablet Extended Release 24 Hr 50 mg PO QAM RF: 0 diltiazem HCl 240 mg capsule,extended release 24hr 240 mg PO QAM RF: 0 ondansetron HCl [Zofran] 4 mg Tablet 4 mg PO DIRECTED PRN (Reason: Nausea) RF: 0 prednisone 20 mg Tablet 60 mg PO DAILY PRN (Reason: breathing rescure kit) RF: 0 tramadol 50 mg Tablet 50 mg PO QAM RF: 0 metformin 1,000 mg Tablet 1,000 mg PO BID RF: 0 docusate sodium [Colace] 100 mg Capsule 100 mg PO BID RF: 0 budesonide 0.5 mg/2 mL Suspension For Nebulization 0.5 mg INHALATION BID RF: 0 furosemide [Lasix] 20 mg Tablet 20 mg PO DAILY PRN (Reason: swelling) RF: 0 polyethylene glycol 3350 [Miralax] 17 gram/dose Powder 17 g PO QDL RF: 0 albuterol sulfate [ProAir HFA] 90 mcg/actuation Hfa Aerosol Inhaler 2 puff INHALATION Q4H PRN (Reason: COUGH/WHEEZING) RF: 0 sertraline [Zoloft] 50 mg Tablet 50 mg PO QAM RF: 0 Forteo 20 mcg/dose - 600 mcg/2.4 mL Pen Injector 20 mcg SUBCUT QDD RF: 0 cholecalciferol (vitamin D3) [Vitamin D3] 5,000 unit Tablet 5,000 unit PO QAM RF: 0 Eliquis 2.5 mg tablet 2.5 mg PO BID RF: 0 Referrals Referrals: Mamadou Torre MD [Primary Care Provider] - Discharge Problem: Nausea & vomiting Qualifiers: Vomiting type: unspecified Vomiting Intractability: intractable Qualified Code(s): R11.2 - Nausea with vomiting, unspecified Diarrhea Qualifiers: Diarrhea type: unspecified type Qualified Code(s): R19.7 - Diarrhea, unspecified The scribe's documentation has been prepared under my direction and personally reviewed by me in its entirety. I confirm that the note above accurately reflects all work, treatment, procedures, and medical decision making performed by me.
--- NOTE | 2019-02-09 00:07 | History and Physical Report ---
DATE OF ADMISSION: 02/08/2019 CHIEF COMPLAINT: Nausea, vomiting and diarrhea. HISTORY OF PRESENT ILLNESS: This is an 83-year-old female with past medical history significant for type 2 diabetes, hyperlipidemia, bronchiectasis, severe persistent asthma, nocturnal hypoxemia, atrial fibrillation, hypertension, gastroesophageal reflux disease, chronic kidney disease stage III, osteoporosis and spinal stenosis who presents with nausea, vomiting and diarrhea. The patient lives alone. Daughter lives very close by. They all ate sandwiches outside, but no one got sick. She woke up with several episodes of nausea, vomiting and diarrhea. No blood in the stools. No blood in the vomitus. Some abdominal discomfort. Patient seemed dehydrated,and was brought her here. The patient is somewhat lethargic. She complains she has some mild headache, some sore throat. No runny nose. The patient can tell her name, can tell her date of , but does not know the place where she is in. Daughter states whenever she gets dehydrated she gets confused but she will come back quickly back to usual self. No fever. No chills. Ambulates with the help of a walker. Currently hemodynamically stable. ALLERGIES: ALENDRONATE, AUGMENTIN, CIPROFLOXACIN AND LEVOFLOXACIN. PAST MEDICAL HISTORY: As mentioned above. PAST SURGICAL HISTORY: Colonoscopy with biopsy, cataract surgery, single right upper lobectomy, total abdominal hysterectomy with removal of tubes for fibroids and hernia repair with mesh. MEDICATIONS: The patient is on Zoloft 50 mg p.o. daily, Eliquis 2.5 mg p.o. b.i.d., prednisone 10 mg p.o. daily, Zantac 300 mg p.o. at bedtime, Forteo inject 20 mcg on the skin daily, tramadol 50 mg p.o. q. 6 hours p.r.n., Singulair 10 mg p.o. daily, diltiazem CD 240 mg p.o. daily, baclofen 10 mg p.o. b.i.d., Toprol-XL 50 mg p.o. daily, albuterol 2 puffs every 4 hours p.r.n., metformin 1000 mg p.o. b.i.d., DuoNebs every 6 hours p.r.n., Pulmicort nebulization 2 times a day, Lasix 20 mg p.r.n., Biotin 1000 mcg daily, Senokot-S 1 tablet daily, Zofran 4 mg p.o. q. 2 hours p.r.n., Colace 100 mg p.o. b.i.d., MiraLax 17 g p.o. b.i.d., vitamin D 2000 units p.o. daily, Tylenol 500 mg p.o. 8 hours p.r.n. and oxygen 2 liters during sleep. FAMILY HISTORY: Mother has diabetes, congestive heart failure and lung disorder. Father has emphysema. Sister has high cholesterol, asthma and chronic obstructive pulmonary disease. SOCIAL HISTORY: , currently lives alone. Daughter lives close by. No smoking history. No alcohol. No drug use. REVIEW OF SYMPTOMS: Could not get complete review of symptoms as the patient is somewhat lethargic and confused. PHYSICAL EXAMINATION: GENERAL: The patient is alert and awake, oriented to name, can tell her date of . VITAL SIGNS: Temperature 37.2, pulse 76, respiratory rate 18, blood pressure 102/62 and oxygen 96% on 2 liters. HEENT: No pallor. No icterus. Pupils are equal, round and reactive to light. Oral mucosa dry. NECK: No JVD. No neck masses. No carotid bruits. CARDIOVASCULAR: S1, S2 heard. Regular rate and rhythm. No murmur. No gallop. RESPIRATORY SYSTEM: Normal AP diameter. No accessory muscle use. No wheezing. No crackles. ABDOMEN: Soft. Bowel sounds present. No guarding. No rigidity. No distention. CENTRAL NERVOUS SYSTEM: Alert and awake, oriented to name only, can tell her date of , obeys simple commands, moves extremities. EXTREMITIES: No edema. No erythema. LABORATORY DATA: WBC 13.1, hemoglobin 11, hematocrit 36.7 and platelets 247. Sodium 138, potassium 4.3, chloride 107, bicarbonate 26, BUN 24, creatinine 0.8, serum glucose 109, calcium 8.5, total bilirubin 0.8, AST 26, ALT 23 and alkaline phosphatase 47. Troponin I less than 0.015. Lipase 41. Urinalysis negative. Electrocardiogram, normal sinus rhythm, rate of 73 and nonspecific T-wave abnormalities. CT of abdomen and pelvis, no definite bowel wall thickening or obstruction, liquid stool within the colon, there is a possibility of gastroenteritis, right-sided nephrolithiasis, no evidence for hydronephrosis, no change in the midline ventral hernia with evidence for prior mesh repair, mild central mesenteric edema and this is nonspecific and unchanged. ASSESSMENT AND PLAN: This is an 83-year-old female who presents with nausea, vomiting and diarrhea and found to be somewhat lethargic. 1. Nausea, vomiting and diarrhea, somewhat lethargic possibly secondary to dehydration. No recent use of antibiotics. CAT scan showing enteritis possibly viral gastroenteritis. We will check stool cultures and stool for Clostridium difficile. We will place on I.V. normal saline 100 mL per hour for now. Monitor on Med/Surg Tele. We will place on clear liquid diet. 2. History of diabetes. hold home meds. insulin sliding scale. Follow HbA1c. We will follow blood sugars here in the hospital. 3. History of bronchiectasis, status post right lobectomy. 4. History of persistent asthma, nocturnal hypoxemia. Continue home inhlaers recently followed with pulmonology. 5. History of atrial fibrillation, rate controlled with metoprolol and Cardizem. On Eliquis. 6. Hypertension, on diltiazem and metoprolol. We will monitor the blood pressure. 7. Gastroesophageal reflux disease, on Zantac. 8. Chronic kidney disease stage III. We will follow the laboratories, seems to be stable. 9. chronic back pain. Continue tramadol p.r.n. 10. Senile osteoporosis, on Forteo which we will hold for now. 11. Deep venous thrombosis prophylaxis, on Eliquis. 12. Disposition: Closely monitor on the Med/Surg Tele. Level 1 full code. Physical therapy and occupational therapy prior to discharge. Social Service to help with discharge planning. Addendum: Later patient went into rapid afib. BP was low. Given a dose of digoxin iv.Given fluid bolus and BP came up. But after 10mg of iv Cardizem bolus BP dropped again and got another fluid bolus and was started on cardizem drip. But after some time again SBP dropped to 70''s and heart rates in 140's. cardizem drip stopped.Given another dose of iv digoxin 125mcg. As heart rates still high started on iv amiodarone drip. Echo, serial ce and cardio consult. [facility]
[2019-02-09] MEDS ORDERED: ONDANSETRON INJ 2 MG/ML 2 ML VIAL IV PRN (00:23)
[2019-02-09] MEDS ORDERED: ALBUTEROL HFA 8 GM INHALER INH PRN (00:23)
[2019-02-09] MEDS ORDERED: ACETAMINOPHEN 325 MG TAB PO PRN (00:23)
[2019-02-09] MEDS ORDERED: NITROGLYCERIN SL 0.4 MG/TAB TAB SL PRN (00:23)
[2019-02-09] MEDS ORDERED: GLUCOSE 10 TABS/TUBE PO PRN (00:45)
[2019-02-09] MEDS ORDERED: CARBOHYDRATES FOR HYPOGLYCEMIA PO PRN (00:45)
[2019-02-09] MEDS ORDERED: DEXTROSE 50% 50 ML SYRINGE IV PRN (00:45)
[2019-02-09] MEDS ORDERED: GLUCAGON FOR INJ 1 MG VIAL SQ PRN (00:45)
[2019-02-09] MEDS ORDERED: GLUCOSE 40% GEL 15 GM TUBE PO PRN (00:45)
[2019-02-09] MEDS: SODIUM CHLORIDE 0.9% 1000ML 1,000 ML IV SCH ×3 (01:05→14:06)
[2019-02-09] MEDS: BUDESONIDE 0.5 MG/2 ML VIAL (PULMICORT) INH SCH ×3 (01:22→21:48)
[2019-02-09] MEDS ORDERED: SODIUM CHLORIDE 0.9% 500 ML IV SCH ×2 (02:45→04:00)
[2019-02-09] MEDS ORDERED: dilTIAZem HCl 5 MG/ML 5 ML VIAL IV STA (03:17)
[2019-02-09] MEDS ORDERED: dilTIAZem HCL 125 MG in DEXTROSE 5% 100 ML IV SCH (03:30)
[2019-02-09] MEDS: TRAMADOL HCL 50 MG TABLET PO PRN (03:57)
[2019-02-09] MEDS ORDERED: DIGOXIN 125 MCG in SYRINGE 9.5 ML IV STA ×2 (03:57→06:27)
--- NOTE | 2019-02-09 05:32 | XRay Report ---
XR chest 1V portable CLINICAL HISTORY: congestion dyspnea COMPARISON STUDY: 07/30/2018 FINDINGS: Mild stable cardiomegaly. Slight increase in pulmonary vasculature compared to the prior ex am. Chronic pleural and parenchymal changes right base considered unaltered. IMPRESSION: Pulmonary vascular congestion superimposed upon chronic change. The above report was generated using voice recognition software. It may contain grammatical, syntax or spelling errors. Electronically signed by: Rojelio Sorto M.D. 02/09/2019 5:31 AM
[2019-02-09 06:13] LABS: Basophils # (auto) 0.02 K/uL (0-0.2); Basophils % (auto) 0.2 %; Eosinophils # (auto) 0.08 K/uL (0-0.5); Eosinophils % (auto) 0.8 %; Hematocrit (blood only) 34.2 % (37-47); Hemoglobin 10.2 g/dL (12.0-16.0); Immature Granulocytes # (auto) 0.03 K/uL (0.00-0.02); Immature Granulocytes % (auto) 0.3 %; Lymphocytes # (auto) 1.54 K/uL (1.2-3.4); Lymphocytes % (auto) 15.4 %; Mean Corpuscular Hemoglobin 26.7 pg (25-34); Mean Corpuscular Hgb Conc 29.8 g/dL (32-36); Mean Corpuscular Volume 89.5 fL (80-100); Mean Platelet Volume 9.4 fL (7.4-10.4); Monocytes # (auto) 1.04 K/uL (0.11-0.59); Monocytes % (auto) 10.4 %; Neutrophils # (auto) 7.29 K/uL (1.4-6.5); Neutrophils % (auto) 72.9 %; Platelet Count 245 K/uL (130-400); RDW Coefficient of Variation 15.2 % (11.5-14.5); RDW Standard Deviation 49.6 fL (36.4-46.3); Red Blood Count 3.82 M/uL (4.2-5.4)
[2019-02-09 06:47] LABS: Calcium 8.1 mg/dl (8.5-10.1); Creatinine Clr Calc Pharmacy 53.7 ml/min; Est GFR (African American) 92.6; Est GFR (Non-African American) 79.9; Magnesium 1.4 mg/dl (1.8-2.4); Potassium 3.6 mmol/L (3.5-5.1)
[2019-02-09] MEDS ORDERED: AMIODARONE / D5W 150 MG/100 ML BAG IV STA (06:52)
[2019-02-09] MEDS ORDERED: AMIODARONE IV BOLUS / DRIP IV STA (06:52)
[2019-02-09] MEDS ORDERED: AMIODARONE / D5W 360 MG/200 ML BAG IV SCH (07:00)
[2019-02-09] MEDS: MAGNESIUM SULFATE / D5W 1 GM/100 ML BAG IV SCH ×2 (07:49→10:01)
[2019-02-09] MEDS ORDERED: PERFLUTREN LIPID MICROSPHERE (DEFINITY) IV ONE (07:59)
[2019-02-09 08:00] LABS: Estimated Average Glucose 131 mg/dl; Hemoglobin A1C 6.2 % (4.5-5.6)
[2019-02-09] MEDS: INSULIN ASPART 100 UNITS/ML 3 ML PEN SC SCH ×4 (09:00→21:00)
[2019-02-09] MEDS: MONTELUKAST SODIUM 10 MG TABLET PO SCH (09:00)
[2019-02-09] MEDS: SERTRALINE HCL 50 MG TABLET PO SCH (09:00)
[2019-02-09] MEDS: METOPROLOL SUCC 50MG EXT REL TAB PO SCH ×2 (09:01→09:03)
[2019-02-09] MEDS: CHOLECALCIFEROL 1,000 UNITS TAB PO SCH (09:01)
[2019-02-09] MEDS: predniSONE 10 MG TABLET PO SCH (09:01)
[2019-02-09] MEDS: APIXABAN 2.5 MG TAB PO SCH ×2 (09:01→21:09)
--- NOTE | 2019-02-09 11:05 | Cardiology Consultation ---
Date of Consultation February 09, 2019 Assessment & Plan (1) Atrial fibrillation with controlled ventricular rate: AF with RVR, mild troponin elevation in setting of volume depletion from illness with Nausea, vomiting, diarrhea. Agree with amiodarone for acute rhythm and rate control. Continue oral metoprolol. Continue Eliquis for stroke prevention. Patient had similar episode in 04/2017 when admitted with a bowel obstruction. Magnesium has been replaced IV. Echo reveals normal to hyperdynamic LVEF. History of Present Illness Attending Physician: Hayden Contreras MD History of Present Illness Megan Jin is an 83 year old female seen in cardiology consultation per the request of Dr Santoro for the evaluation of AF RVR. Pt presented with two days of nausea, vomiting , and diarrhea. CT suggest enteritis. Pt was in SR on arrival to ED then went in to AF RVR. Was hypotensive with IV diltiazem. No in IV amiodarone. BP now normal. Remains in AF, RVR at with V rates in the range of 130 -150 bpm. She is resting comfortably. No cardiac symptoms. Allergies Allergy/AdvReac Type Severity Reaction Status Date / Time Cipro Allergy Intermediate hives, Verified 04/25/17 06:31 itching ciprofloxacin Allergy Intermediate hives, Verified 02/08/19 20:01 itching amoxicillin Allergy Mild itching,TOLERATING Verified 02/08/19 20:01 ZOSYN 01/04/14 clavulanic acid Allergy Mild ITCHING,TOLERATING Verified 02/08/19 20:01 ZOSYN 01/04/14 alendronate sodium AdvReac Intermediate feet and Verified 02/08/19 20:01 hand pain levofloxacin AdvReac Intermediate muscle pain Verified 02/08/19 20:01 Home Medications Home Medications Medication Instructions Recorded Confirmed Type albuterol sulfate [ProAir HFA] 2 puff INHALATION Q4H PRN 07/30/18 02/08/19 History apixaban [Eliquis] 2.5 mg PO BID 07/30/18 02/08/19 History budesonide 0.5 mg INHALATION BID 07/30/18 02/08/19 History cholecalciferol (vitamin D3) 5,000 unit PO QAM 07/30/18 02/08/19 History [Vitamin D3] diltiazem HCl 240 mg PO QAM 07/30/18 02/08/19 History docusate sodium [Colace] 100 mg PO BID 07/30/18 02/08/19 History doxycycline hyclate 100 mg PO DAILY PRN 07/30/18 02/08/19 History furosemide [Lasix] 20 mg PO DAILY PRN 07/30/18 02/08/19 History ipratropium-albuterol 3 ml INHALATION Q6H PRN 07/30/18 02/08/19 History metformin 1,000 mg PO BID 07/30/18 02/08/19 History metoprolol succinate [Toprol XL] 50 mg PO QAM 07/30/18 02/08/19 History ondansetron HCl [Zofran] 4 mg PO DIRECTED PRN 07/30/18 02/08/19 History polyethylene glycol 3350 [Miralax] 17 g PO QDL 07/30/18 02/08/19 History prednisone 10 mg PO QAM 07/30/18 02/08/19 History prednisone 60 mg PO DAILY PRN 07/30/18 02/08/19 History sennosides [Senokot] 8.6 mg PO QDL 07/30/18 02/08/19 History sertraline [Zoloft] 50 mg PO QAM 07/30/18 02/08/19 History teriparatide [Forteo] 20 mcg SUBCUT QDD 07/30/18 02/08/19 History tramadol 50 mg PO Q6H PRN 07/30/18 02/08/19 History montelukast [Singulair] 10 mg PO QAM 02/08/19 02/08/19 History ranitidine HCl 300 mg PO QPM 02/08/19 02/08/19 History Patient History Medical History COPD, severe (Chronic) Paroxysmal a-fib (Chronic) GERD (gastroesophageal reflux disease) (Chronic) Bronchiectasis (Chronic) Nocturnal hypoxemia (Chronic) Spinal stenosis (Chronic) Arthritis (Chronic) Hyperlipidemia (Chronic) "statin intolerance" HTN (hypertension) (Chronic) Pulmonary hypertension (Chronic) SBO (small bowel obstruction) (Chronic) Surgical History H/O: hysterectomy (Chronic) History of cholecystectomy (Chronic) 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" History of cataract surgery (Chronic) H/O hernia repair (Chronic) Family History Other Family history non-contributory Social History Preferred Language: Swedish Communication Ability: Effective Dealer Card Room Required: No Beliefs That Will Affect Care: None marital status: Current Living Situation: Family current occupational status: retired Other Information That Helps Us Care for You: No Feels Safe at Home: Yes Safety Concerns: Feels Safe At This Time Smoking Status: Never smoker Hx Substance Use: No Review of Systems Review of Systems: All systems reviewed & are unremarkable except as noted in HPI & below Physical Exam Physical Exam: Temp Pulse Resp BP Pulse Ox 36.8 C 140 H 25 H 128/67 98 02/09/19 06:55 02/09/19 06:55 02/09/19 06:55 02/09/19 06:55 02/09/19 06:55 Constitutional: WD/WN, vitals as above Respiratory: normal respiratory effort, lungs clear to auscultation Cardiovascular: Rate/Rhythm: + tachycardic and + irregularly irregular Heart Sounds: no murmur Vessels: no JVD Neurologic: PERRL, EOMI, accommodation nl, no face palsy, no dysarthria Results & Data Vital Signs (Past 12 Hours) Vital Signs Temp Pulse Pulse Resp BP BP Pulse Ox 02/09/19 06:55 36.8 C 140 H 25 H 128/67 98 02/09/19 06:50 140 H 128/67 02/09/19 06:39 126 H 136 H 76/47 L 02/09/19 06:29 140 H 85/40 L 02/09/19 06:19 140 H 78/40 L 02/09/19 06:09 128 H 86/46 L 02/09/19 05:40 130 H 107/52 L 02/09/19 05:17 113 H 100/59 L 02/09/19 05:14 128 H 108/60 02/09/19 04:48 123 H 115/63 02/09/19 04:43 155 H 126/71 02/09/19 04:42 132 H 119/55 L 02/09/19 04:35 134 H 119/55 L 02/09/19 04:15 131 H 107/61 02/09/19 04:07 135 H 02/09/19 04:06 145 H 96/61 L 02/09/19 03:56 148 H 110/64 02/09/19 03:47 127 H 92/46 L 02/09/19 03:42 133 H 97/52 L 02/09/19 03:36 148 H 104/54 L 02/09/19 03:10 37 C 160 H 20 125/85 95 02/09/19 01:35 37.7 C H 77 16 126/54 L 98 Laboratory Results Cardiac Enzymes 02/08/19 02/08/19 02/09/19 Range/Units 19:27 19:58 05:56 AST 26 (15-37) U/L Troponin I < 0.015 0.043 (0-0.045) ng/ml CBC 02/08/19 02/08/19 02/09/19 Range/Units 19:27 19:58 05:56 WBC Cancelled 13.17 H 10.00 RBC Cancelled 4.12 L 3.82 L Hgb Cancelled 11.0 L 10.2 L Hct Cancelled 36.7 L 34.2 L Plt Count Cancelled 247 245 Neut # (Auto) Cancelled 10.43 H 7.29 H Lymph # (Auto) Cancelled 1.21 1.54 Lamar # (Auto) Cancelled 1.34 H 1.04 H Eos # (Auto) Cancelled 0.12 0.08 Baso # (Auto) Cancelled 0.03 0.02 Comprehensive Metabolic Panel 02/08/19 02/08/19 02/09/19 Range/Units 19:27 19:58 05:56 Sodium 138 139 (136-145) mmol/L Potassium 4.3 3.6 D (3.5-5.1) mmol/L Chloride 107 107 (98-107) mmol/L Carbon Dioxide 26 26 (21-32) mmol/L BUN 24 H 19 H (7-18) mg/dl Creatinine 0.81 0.71 (0.6-1.2) mg/dl Glucose 109 H 95 (70-99) mg/dl Calcium 8.5 8.1 L (8.5-10.1) mg/dl AST 26 (15-37) U/L ALT 23 (12-78) U/L Alkaline Phosphatase 47 (45-117) U/L Total Protein 5.9 L (6.4-8.2) gm/dl Albumin 2.7 L (3.4-5.0) gm/dl Intake and Output 02/08/19 02/09/19 02/09/19 22:59 06:59 14:59 Intake Total 1000 / 3203.417 2203.417 / 3203.417 200 / 200 Balance 1000 / 3203.417 2203.417 / 3203.417 200 / 200 Intake: IV 1000 / 3203.417 2203.417 / 3203.417 200 / 200 NEXTERONE / D5W 150 mg In 100 100 / 100 ml @ 600 mls/hr IV ONE STA Rx#: [id number] MAGNESIUM SULFATE / D5W 1 gm In 100 / 100 100 ml @ 100 mls/hr IV Q1H JULIANNE Rx#:[id number] Nss 1000ML 1,000 ml @ 125 mls/ 1000 / 2291.667 1291.667 / 2291.667 hr IV .Q8H JULIANNE Rx#:[id number] Nss 500 ml @ 500 mls/hr IV .Q1H 891.667 / 891.667 JULIANNE Rx#:[id number] Cardizem 125 mg In D5 100 ml @ 20.083 / 20.083 0 / 0 0 MG/HR IV .Q0M JULIANNE Rx#: [id number] Other: Weight 65 kg 65 kg Diagnostic Findings EKG on presentation SR, T wave inversions in the lateral precordial leads, new compared to 07/2018. Medications Administered Current Inpatient Medications Acetaminophen (Tylenol) 650 mg PO Q4H PRN PRN Reason: Pain or Fever Stop: 03/11/19 00:22 Albuterol (Duoneb) 3 ml INH Q6H PRN PRN Reason: Shortness Of Breath Or Wheezing Stop: 03/11/19 00:22 Albuterol (Ventolin Hfa) 2 puffs INH Q4H PRN PRN Reason: COUGH/WHEEZING Apixaban (Eliquis) 2.5 mg PO BID [facility] Stop: 03/11/19 08:59 Last Admin: 02/09/19 09:01 Dose: 2.5 mg Documented by: Budesonide (Pulmicort Respules) 0.5 mg INH BID JULIANNE Stop: 03/11/19 00:22 Last Admin: 02/09/19 01:22 Dose: Not Given Documented by: Dextrose (Dextrose 50%) 25 - 50 ml IV UD PRN; Protocol PRN Reason: Hypoglycemia Protocol Stop: 03/11/19 00:44 Diltiazem HCl (Cardizem Cd) 240 mg PO QAM JULIANNE Stop: 03/11/19 08:59 Glucagon (Glucagen) 1 mg SQ UD PRN; Protocol PRN Reason: Hypoglycemia Protocol Stop: 03/11/19 00:44 Glucose (Glucose 40%) 15 - 30 gm PO UD PRN; Protocol PRN Reason: Hypoglycemia Protocol Stop: 03/11/19 00:44 Glucose (Dex4 Glucose) 4 - 8 tabs PO UD PRN; Protocol PRN Reason: Hypoglycemia Protocol Stop: 03/11/19 00:44 Sodium Chloride (Nss 1000ml) 1,000 mls @ 125 mls/hr IV .Q8H JULIANNE Stop: 03/11/19 00:22 Last Infusion: 02/09/19 05:05 Dose: 125 mls/hr Documented by: Amiodarone HCl/Dextrose (Nexterone / D5w) 360 mg in 200 mls @ 33.333 mls/hr IV .Q6H JULIANNE Stop: 02/09/19 12:59 Last Admin: 02/09/19 08:18 Dose: 1 mg/min, 33.3 mls/hr Documented by: Amiodarone HCl/Dextrose (Nexterone / D5w) 360 mg in 200 mls @ 16.667 mls/hr IV .Q12H [facility] Stop: 03/11/19 12:51 Insulin Aspart (Novolog Flexpen) 0 units SC ACHS JULIANNE Stop: 03/11/19 07:29 Last Admin: 02/09/19 09:00 Dose: Not Given Documented by: Metoprolol Succinate (Toprol Xl) 50 mg PO QAM JULIANNE Stop: 03/11/19 08:59 Last Admin: 02/09/19 09:03 Dose: Not Given Documented by: Miscellaneous (Carbohydrates For Hypoglycemia) 15 - 30 gm PO UD PRN PRN Reason: Hypoglycemia Treatment Stop: 03/11/19 00:44 Montelukast Sodium ([facility]ulair) [facility] [place] Stop: 03/11/19 08:59 Last Admin: 02/09/19 09:00 Dose: 10 mg Documented by: Nitroglycerin (Nitrostat) 0.4 mg SL UD PRN PRN Reason: Chest Pain Stop: 03/11/19 00:22 Ondansetron HCl (Zofran) 4 mg IV Q6H PRN PRN Reason: Nausea Stop: 03/11/19 00:22 Prednisone (Prednisone) 10 mg PO [facility] Stop: 03/11/19 08:59 Last Admin: 02/09/19 09:01 Dose: 10 mg Documented by: Ranitidine HCl (Zantac) 300 mg PO QPM [facility] Stop: 03/11/19 20:59 Sertraline HCl (Zoloft) 50 mg PO [facility] Stop: 03/11/19 08:59 Last Admin: 02/09/19 09:00 Dose: 50 mg Documented by: Tramadol HCl (Ultram) 50 mg PO Q6H PRN PRN Reason: Pain, Moderate Stop: 03/11/19 00:22 Last Admin: 02/09/19 03:57 Dose: 50 mg Documented by: Vitamin D (Vitamin D3) 5,000 units PO [facility] Stop: 03/11/19 08:59 Last Admin: 02/09/19 09:01 Dose: 5,000 units Documented by:
--- NOTE | 2019-02-09 13:14 | Hospitalist Progress Note ---
Date of Service February 09, 2019 Assessment & Plan (1) Nausea vomiting and diarrhea: Admitted with ongoing nausea vomiting and diarrhea Likely secondary to gastroenteritis due to possible food poisoning Noted to have dehydration with renal impairment and electrolyte abnormality on admission Getting cautious amount of intravenous fluid Symptoms much better this morning (2) Atrial fibrillation with RVR: History of paroxysmal active fibrillation Noted to have atrial fibrillation with RVR following admission Right beta-dary and intravenous digoxin and also Cardizem drip but did not want Has been on amiodarone drip since last night Rate seems to be under control Appreciate cardiology input and recommendation Echo: Atrial fibrillation with rapid ventricular response was present during the echocardiogram, mild concentric left medical hypertrophy, left bundle wall motion is normal, systolic function is normal with EF of 60 to 65% and aortic valve sclerosis mild without stenosis (3) HTN (hypertension): Noted to be hypotension with rapid ventricular response Blood pressure medications is on hold Intravenous fluid to correct the dehydration and increased blood pressure Seems to be controlled now (4) COPD, severe: History of COPD/asthma with bronchiectasis as mentioned below Seems to be in stable condition Denies any shortness of breath and/or wheezing (5) Bronchiectasis: As above DVT prophylaxis Has been on Eliquis Subjective 02/09 The patient was seen and examined in telemetry unit She has been feeling a lot better since this morning Denies any more abdominal pain, nausea and/or vomiting Heart rate seems to be a little controlled Denies any chest pain and/or palpitation Review of Systems Review of Systems: All systems reviewed and are unremarkable except as noted below Constitutional: + weakness Gastrointestinal: + bloating and + nausea; no vomiting Physical Exam Physical Exam: Lying in bed comfortably Constitutional: well developed; no acute distress and not ill appearing Eyes: PERRL, conjunctivae normal, anicteric sclerae ENMT: external ear and nose normal, oropharynx normal Neck: trachea midline, no thyromegaly Respiratory: normal respiratory effort; no respiratory distress Auscultation: lungs clear to auscultation bilaterally and + diminished lung sounds Cardiovascular: Rate/Rhythm: + abnormal rate and + abnormal rhythm Heart Sounds: + murmur Gastrointestinal (Abdomen): Inspection/Auscultation: abdomen normal to inspection and normal bowel sounds; abdomen not distended Percussion/Palpation: abdomen soft; abdomen nontender and no guarding Neurologic: moves all extremities; no focal motor deficits Results & Data Vital Signs (Past 12 Hours) Vital Signs Temp Pulse Pulse Resp BP BP Pulse Ox 02/09/19 12:19 37.0 C 119 H 21 108/51 L 92 02/09/19 11:22 130 H 24 92 02/09/19 11:17 126 H 02/09/19 06:55 36.8 C 140 H 25 H 128/67 98 02/09/19 06:50 140 H 128/67 02/09/19 06:39 126 H 136 H 76/47 L 02/09/19 06:29 140 H 85/40 L 02/09/19 06:19 140 H 78/40 L 02/09/19 06:09 128 H 86/46 L 02/09/19 05:40 130 H 107/52 L 02/09/19 05:17 113 H 100/59 L 02/09/19 05:14 128 H 108/60 02/09/19 04:48 123 H 115/63 02/09/19 04:43 155 H 126/71 02/09/19 04:42 132 H 119/55 L 02/09/19 04:35 134 H 119/55 L 02/09/19 04:15 131 H 107/61 02/09/19 04:07 135 H 02/09/19 04:06 145 H 96/61 L 02/09/19 03:56 148 H 110/64 02/09/19 03:47 127 H 92/46 L 02/09/19 03:42 133 H 97/52 L 02/09/19 03:36 148 H 104/54 L 02/09/19 03:10 37 C 160 H 20 125/85 95 02/09/19 01:35 37.7 C H 77 16 126/54 L 98 Laboratory Results Short CBC 02/08/19 02/08/19 02/09/19 Range/Units 19:27 19:58 05:56 WBC Cancelled 13.17 H 10.00 Hgb Cancelled 11.0 L 10.2 L Hct Cancelled 36.7 L 34.2 L Plt Count Cancelled 247 245 BMP 02/08/19 02/08/19 02/09/19 19:27 19:58 05:56 Sodium 138 139 Potassium 4.3 3.6 D Chloride 107 107 Carbon Dioxide 26 26 BUN 24 H 19 H Creatinine 0.81 0.71 Glucose 109 H 95 Calcium 8.5 8.1 L Cardiac Enzymes 02/08/19 02/09/19 Range/Units 19:27 05:56 Troponin I < 0.015 0.043 (0-0.045) ng/ml Liver Function 02/08/19 02/08/19 Range/Units 19:27 19:58 Total Bilirubin 0.8 (0.2-1) mg/dl AST 26 (15-37) U/L ALT 23 (12-78) U/L Alkaline Phosphatase 47 (45-117) U/L Albumin 2.7 L (3.4-5.0) gm/dl Urine 02/08/19 Range/Units 20:10 Urine Color Yellow Urine Appearance Clear (Clear) Urine pH 6.0 (4.5-7.5) Ur Specific [place] 1.025 (1.000-1.030) Urine Protein Negative (Negative) Urine Glucose (UA) Negative (Negative)
[2019-02-09] MEDS: AMIODARONE / D5W 360 MG/200 ML BAG IV SCH (14:05)
[2019-02-09] MEDS ORDERED: DIGOXIN 125 MCG in SYRINGE 9.5 ML IV SCH (16:00)
[2019-02-09] MEDS: ALBUT/IPRATROP 3MG/0.5MG NEB 3 ML VIAL INH PRN (17:32)
[2019-02-10] MEDS: AMIODARONE / D5W 360 MG/200 ML BAG IV SCH (03:08)
[2019-02-10] MEDS: ALBUT/IPRATROP 3MG/0.5MG NEB 3 ML VIAL INH PRN ×2 (07:18→19:46)
[2019-02-10] MEDS: BUDESONIDE 0.5 MG/2 ML VIAL (PULMICORT) INH SCH ×2 (07:18→19:46)
[2019-02-10] MEDS: APIXABAN 2.5 MG TAB PO SCH ×2 (08:12→20:53)
[2019-02-10] MEDS: INSULIN ASPART 100 UNITS/ML 3 ML PEN SC SCH ×4 (08:12→20:57)
[2019-02-10] MEDS: TRAMADOL HCL 50 MG TABLET PO PRN (08:12)
[2019-02-10] MEDS: CHOLECALCIFEROL 1,000 UNITS TAB PO SCH (08:13)
[2019-02-10] MEDS: MONTELUKAST SODIUM 10 MG TABLET PO SCH (08:13)
[2019-02-10] MEDS: METOPROLOL SUCC 50MG EXT REL TAB PO SCH (08:13)
[2019-02-10] MEDS: predniSONE 10 MG TABLET PO SCH (08:13)
[2019-02-10] MEDS: SERTRALINE HCL 50 MG TABLET PO SCH (08:13)
[2019-02-10] MEDS: dilTIAZem HCL 240 MG CAPCR PO SCH (11:49)
--- NOTE | 2019-02-10 13:01 | Cardiology Progress Note ---
Date of Service February 10, 2019 Assessment & Plan (1) Atrial fibrillation with RVR: Patient is back in sinus rhythm. She converted from atrial fibrillation to sinus rhythm on 02/09/2019 at 1504. Blood pressure is improved. Discontinue IV amiodarone Continue prior to hospital metoprolol, her prior to hospital dose of oral diltiazem has been reordered. Continue Eliquis for stroke prophylaxis. Her abdominal discomfort seems to be improved. Perhaps this was a self-limited process. Subjective Chief complaint: Follow-up nausea Subjective: Patient feeling well. She had tolerated her meal this morning. Telemetry reveals stable sinus rhythm. Review of Systems Review of Systems: All systems reviewed & are unremarkable except as noted in HPI & below Physical Exam Physical Exam: Temp Pulse Resp BP Pulse Ox 37.1 C 71 23 138/68 94 02/10/19 11:58 02/10/19 11:58 02/10/19 11:58 02/10/19 11:58 02/10/19 11:58 Constitutional: WD/WN, vitals as above Respiratory: normal respiratory effort, lungs clear to auscultation Cardiovascular: RRR, no murmur, no edema Gastrointestinal (Abdomen): normal bowel sounds, soft, nontender, no hepatosplenomegaly Neurologic: PERRL, EOMI, accommodation nl, no face palsy, no dysarthria Results & Data Vital Signs (Past 12 Hours) Vital Signs Temp Pulse Resp BP BP Pulse Ox 02/10/19 11:58 37.1 C 71 23 138/68 94 02/10/19 07:58 37.1 C 78 18 160/81 H 99 02/10/19 07:18 78 16 98 02/10/19 04:38 37.2 C 67 18 129/61 94
--- NOTE | 2019-02-10 16:20 | Hospitalist Progress Note ---
Date of Service February 10, 2019 Assessment & Plan (1) Nausea vomiting and diarrhea: Admitted with ongoing nausea vomiting and diarrhea Likely secondary to gastroenteritis due to possible food poisoning Noted to have dehydration with renal impairment and electrolyte abnormality on admission Getting cautious amount of intravenous fluid Symptoms much better this morning No more abdominal pain, nausea and/or vomiting (2) Atrial fibrillation with RVR: History of paroxysmal active fibrillation Noted to have atrial fibrillation with RVR following admission Right beta-dary and intravenous digoxin and also Cardizem drip but did not want Has been on amiodarone drip since last night Rate seems to be under control Appreciate cardiology input and recommendation Echo: Atrial fibrillation with rapid ventricular response was present during the echocardiogram, mild concentric left medical hypertrophy, left bundle wall motion is normal, systolic function is normal with EF of 60 to 65% and aortic valve sclerosis mild without stenosis Reverted to sinus rhythm Amiodarone drip has been discontinued and no additional amiodarone dose was given to continue She will continue with her usual outpatient cardiac medications (3) HTN (hypertension): Noted to be hypotension with rapid ventricular response Blood pressure medications is on hold Intravenous fluid to correct the dehydration and increased blood pressure Seems to be controlled now (4) COPD, severe: History of COPD/asthma with bronchiectasis as mentioned below Seems to be in stable condition Denies any shortness of breath and/or wheezing (5) Bronchiectasis: As above DVT prophylaxis Has been on Eliquis We will get PT and OT evaluation Possible discharge tomorrow home with home health Subjective 02/09 The patient was seen and examined in telemetry unit She has been feeling a lot better since this morning Denies any more abdominal pain, nausea and/or vomiting Heart rate seems to be a little controlled Denies any chest pain and/or palpitation 02/10 The patient was seen and examined in telemetry unit Patient has been feeling a lot better denies any more abdominal pain, nausea and/or vomiting Her heart rate remains in sinus rhythm Denies any shortness of breath and/or palpitation Review of Systems Review of Systems: All systems reviewed and are unremarkable except as noted below Constitutional: + weakness Cardiovascular: no chest pain, no palpitations and no edema Gastrointestinal: + bloating and + nausea; no vomiting Musculoskeletal: No acute arthritis in any joints Physical Exam Physical Exam: Lying in bed comfortably Constitutional: well developed; no acute distress and not ill appearing Eyes: PERRL, conjunctivae normal, anicteric sclerae ENMT: external ear and nose normal, oropharynx normal Neck: trachea midline, no thyromegaly Respiratory: normal respiratory effort; no respiratory distress Auscultation: lungs clear to auscultation bilaterally and + diminished lung sounds Cardiovascular: Rate/Rhythm: + abnormal rate and + abnormal rhythm Heart Sounds: + murmur Gastrointestinal (Abdomen): Inspection/Auscultation: abdomen normal to inspection and normal bowel sounds; abdomen not distended Percussion/Palpation: abdomen soft; abdomen nontender and no guarding Skin: Spreading of the bruising involving the left lateral abdominal wall Neurologic: moves all extremities; no focal motor deficits Psychiatric: Orientation: alert Affect: + depressed affect Results & Data Vital Signs (Past 12 Hours) Vital Signs Temp Pulse Resp BP BP Pulse Ox 02/10/19 15:41 37 C 65 19 121/38 L 90 02/10/19 11:58 37.1 C 71 23 138/68 94 02/10/19 07:58 37.1 C 78 18 160/81 H 99 02/10/19 07:18 78 16 98 02/10/19 04:38 37.2 C 67 18 129/61 94 Laboratory Results Cardiac Enzymes 02/09/19 Range/Units 20:12 Troponin I 0.160 H* (0-0.045) ng/ml Medications Administered Current Inpatient Medications Acetaminophen (Tylenol) 650 mg PO Q4H PRN PRN Reason: Pain or Fever Stop: 03/11/19 00:22 Albuterol (Duoneb) 3 ml INH Q6H PRN PRN Reason: Shortness Of Breath Or Wheezing Stop: 03/11/19 00:22 Last Admin: 02/10/19 07:18 Dose: 3 ml Documented by: Albuterol (Ventolin Hfa) 2 puffs INH Q4H PRN PRN Reason: COUGH/WHEEZING Apixaban (Eliquis) 2.5 mg PO BID [facility] Stop: 03/11/19 08:59 Last Admin: 02/10/19 08:12 Dose: 2.5 mg Documented by: Budesonide (Pulmicort Respules) 0.5 mg INH BID [facility] Stop: 03/11/19 00:22 Last Admin: 02/10/19 07:18 Dose: 0.5 mg Documented by: Dextrose (Dextrose 50%) 25 - 50 ml IV UD PRN; Protocol PRN Reason: Hypoglycemia Protocol Stop: 03/11/19 00:44 Diltiazem HCl (Cardizem Cd) 240 mg PO [facility] Stop: 03/11/19 08:59 Last Admin: 02/10/19 11:49 Dose: 240 mg Documented by: Glucagon (Glucagen) 1 mg SQ UD PRN; Protocol PRN Reason: Hypoglycemia Protocol Stop: 03/11/19 00:44 Glucose (Glucose 40%) 15 - 30 gm PO UD PRN; Protocol PRN Reason: Hypoglycemia Protocol Stop: 03/11/19 00:44 Glucose (Dex4 Glucose) 4 - 8 tabs PO UD PRN; Protocol PRN Reason: Hypoglycemia Protocol Stop: 03/11/19 00:44 Insulin Aspart (Novolog Flexpen) 0 units SC ACHS [facility] Stop: 03/11/19 07:29 Last Admin: 02/10/19 11:46 Dose: Not Given Documented by: Metoprolol Succinate (Toprol Xl) 50 mg PO [facility] Stop: 03/11/19 08:59 Last Admin: 02/10/19 08:13 Dose: 50 mg Documented by: Miscellaneous (Carbohydrates For Hypoglycemia) 15 - 30 gm PO UD PRN PRN Reason: Hypoglycemia Treatment Stop: 03/11/19 00:44 Montelukast Sodium (Singulair) 10 mg PO [facility] Stop: 03/11/19 08:59 Last Admin: 02/10/19 08:13 Dose: 10 mg Documented by: Nitroglycerin (Nitrostat) 0.4 mg SL UD PRN PRN Reason: Chest Pain Stop: 03/11/19 00:22 Ondansetron HCl (Zofran) 4 mg IV Q6H PRN PRN Reason: Nausea Stop: 03/11/19 00:22 Prednisone (Prednisone) 10 mg PO [facility] Stop: 03/11/19 08:59 Last Admin: 02/10/19 08:13 Dose: 10 mg Documented by: Ranitidine HCl (Zantac) 300 mg PO QPM [facility] Stop: 03/11/19 20:59 Last Admin: 02/09/19 21:09 Dose: 300 mg Documented by: Sertraline HCl (Zoloft) 50 mg PO [facility] Stop: 03/11/19 08:59 Last Admin: 02/10/19 08:13 Dose: 50 mg Documented by: Tramadol HCl (Ultram) 50 mg PO Q6H PRN PRN Reason: Pain, Moderate Stop: 03/11/19 00:22 Last Admin: 02/10/19 08:12 Dose: 50 mg Documented by: Vitamin D (Vitamin D3) 5,000 units PO QAM [facility] Stop: 03/11/19 08:59 Last Admin: 02/10/19 08:13 Dose: 5,000 units Documented by:
[2019-02-11 06:26] LABS: Basophils # (auto) 0.02 K/uL (0-0.2); Basophils % (auto) 0.3 %; Eosinophils # (auto) 0.12 K/uL (0-0.5); Eosinophils % (auto) 1.6 %; Hemoglobin 9.4 g/dL (12.0-16.0); Immature Granulocytes # (auto) 0.03 K/uL (0.00-0.02); Immature Granulocytes % (auto) 0.4 %; Lymphocytes # (auto) 1.07 K/uL (1.2-3.4); Lymphocytes % (auto) 14.2 %; Mean Corpuscular Hemoglobin 27.3 pg (25-34); Mean Corpuscular Hgb Conc 31.3 g/dL (32-36); Mean Corpuscular Volume 87.2 fL (80-100); Mean Platelet Volume 8.9 fL (7.4-10.4); Monocytes # (auto) 0.99 K/uL (0.11-0.59); Monocytes % (auto) 13.2 %; Neutrophils # (auto) 5.29 K/uL (1.4-6.5); Neutrophils % (auto) 70.3 %; Platelet Count 205 K/uL (130-400); RDW Coefficient of Variation 14.9 % (11.5-14.5); RDW Standard Deviation 47.5 fL (36.4-46.3); Red Blood Count 3.44 M/uL (4.2-5.4); White Blood Count 7.52 K/uL (4.8-10.8)
[2019-02-11] MEDS: BUDESONIDE 0.5 MG/2 ML VIAL (PULMICORT) INH SCH (06:57)
[2019-02-11 06:59] LABS: Calcium 8.3 mg/dl (8.5-10.1); Creatinine Clr Calc Pharmacy 59.4 ml/min; Est GFR (African American) 94.2; Est GFR (Non-African American) 81.3; Magnesium 1.6 mg/dl (1.8-2.4); Potassium 3.7 mmol/L (3.5-5.1)
[2019-02-11 07:08] LABS: Albumin Globulin Ratio 0.9 (0.9-2); Bilirubin,Total 0.9 mg/dl (0.2-1); Globulin 3.3 gm/dl (2.5-4.0); Total Protein 6.3 gm/dl (6.4-8.2)
[2019-02-11 07:10] VITALS: TEMP 98.4; O2SAT 93
[2019-02-11] MEDS ORDERED: MAGNESIUM SULFATE / D5W 1 GM/100 ML BAG IV SCH (07:20)
[2019-02-11] MEDS: METOPROLOL SUCC 50MG EXT REL TAB PO SCH (07:42)
[2019-02-11] MEDS: CHOLECALCIFEROL 1,000 UNITS TAB PO SCH (07:42)
[2019-02-11] MEDS: predniSONE 10 MG TABLET PO SCH (07:43)
[2019-02-11] MEDS: APIXABAN 2.5 MG TAB PO SCH (07:43)
[2019-02-11] MEDS: MONTELUKAST SODIUM 10 MG TABLET PO SCH (07:43)
[2019-02-11] MEDS: SERTRALINE HCL 50 MG TABLET PO SCH (07:44)
[2019-02-11] MEDS: dilTIAZem HCL 240 MG CAPCR PO SCH (07:44)
[2019-02-11] MEDS: INSULIN ASPART 100 UNITS/ML 3 ML PEN SC SCH (07:57)
[2019-02-11] MEDS ORDERED: POTASSIUM CHLORIDE 20 MEQ TABCR PO ONE (08:15)
--- NOTE | 2019-02-11 09:15 | Hospitalist Progress Note ---
Date of Service February 11, 2019 Assessment & Plan (1) Nausea vomiting and diarrhea: Admitted w/ nausea, vomiting and diarrhea - now resolved Likely secondary to gastroenteritis Noted to have dehydration with renal impairment and electrolyte abnormality on admission Received IVF cautiously Mild hypokalemia and hypomagnesemia -repleted (2) Atrial fibrillation with RVR: History of paroxysmal afib Noted to have atrial fibrillation with RVR following admission Initially received IV digoxin and cardizem, but did not work, then received IV amiodarone She converted to sinus rhythm on 02/09, IV amiodarone was stopped yesterday Cardiology consulted and follows Rate is well controlled now Now back on her home meds, cardizem and toprol, tolerates well Goal K>4, Mg>2, replaced mild hypokalemia and hypomagnesemia Echo: Atrial fibrillation with rapid ventricular response was present during the echocardiogram, mild concentric LVH, left ventricular wall motion is normal, systolic function is normal with EF of 60 to 65% and aortic valve sclerosis mild without stenosis. (3) HTN (hypertension): Noted to be hypotensive with rapid ventricular response - now resolved,and in sinus rhythm Received IV fluids to correct dehydration and increase blood pressure Resumed her home cardiac medications, toprol and cardizem, tolerates well BP seems to be controlled now (4) COPD, severe: History of COPD/asthma with bronchiectasis as mentioned below Seems to be in stable condition Denies any shortness of breath and/or wheezing (5) Bronchiectasis: As above DVT prophylaxis Cont. home Eliquis Plan to discharge home today with home health Subjective No acute events overnight. Pt remains in sinus rhythm. Denies any n/v, abd. pain, chest pain, shortness of breath. Tolerates food but has poor appetite. Eager to go home today. Review of Systems Review of Systems: All systems reviewed - unremarkable, pertinent see below Constitutional: no fever, no chills, no fatigue, no malaise and no weakness Respiratory: no chest congestion, no dyspnea, no pain on inspiration and no wheezing Cardiovascular: no chest pain, no palpitations and no edema Gastrointestinal: no abdominal pain, no nausea, no vomiting, no constipation and no blood in stools Physical Exam Constitutional: well developed and well nourished; no acute distress Eyes: PERRL, conjunctivae normal, anicteric sclerae ENMT: external ear and nose normal, oropharynx normal Neck: trachea midline, no thyromegaly Respiratory: normal respiratory effort, lungs clear to auscultation Auscultation: + diminished lung sounds; no crackles, no rhonchi and no wheezes Cardiovascular: RRR, no murmur, no edema Extremities: no edema Chest (Breasts): Chest: normal inspection of chest Gastrointestinal (Abdomen): Inspection/Auscultation: abdomen normal to inspection and normal bowel sounds; abdomen not distended Percussion/Palpation: abdomen soft; abdomen nontender and no guarding Musculoskeletal: Head/Neck/Chest: normocephalic, head atraumatic and neck supple Extremities: extremities normal to inspection; normal muscle tone moves all 4 extremities w/o difficulty Skin: no rashes, warm and dry Neurologic: PERRL, EOMI, accommodation nl, no face palsy, no dysarthria no sensory loss noted Psychiatric: A+Ox3, euthymic affect Speech: normal rate/rhythm/volume of speech Genitourinary: no CVA tenderness Lymphatic: no lymphedema and no cervical lymphadenopathy Results & Data Vital Signs (Past 12 Hours) Vital Signs Temp Pulse Resp BP Pulse Ox 02/11/19 07:10 36.9 C 72 20 157/60 H 93 02/11/19 06:57 70 16 91 02/11/19 03:20 36.8 C 72 18 159/79 H 96 02/10/19 23:45 36.8 C 66 20 142/112 H 95 Laboratory Results 02/11/19 02/11/19 02/11/19 Range/Units 07:39 06:09 06:09 WBC 7.52 (4.8-10.8) K/uL RBC 3.44 L (4.2-5.4) M/uL Hgb 9.4 L (12.0-16.0) g/dL Hct 30.0 L (37-47) % MCV 87.2 (80-100) fL MCH 27.3 (25-34) pg MCHC 31.3 L (32-36) g/dL RDW Std Deviation 47.5 H (36.4-46.3) fL RDW Coeff of Shahriar 14.9 H (11.5-14.5) % Plt Count 205 (130-400) K/uL MPV 8.9 (7.4-10.4) fL Immature Gran % (Auto) 0.4 % Neut % (Auto) 70.3 % Lymph % (Auto) 14.2 % [place] % (Auto) 13.2 % Eos % (Auto) 1.6 % Baso % (Auto) 0.3 % Immature Gran # (Auto) 0.03 H (0.00-0.02) K/uL Neut # (Auto) 5.29 (1.4-6.5) K/uL Lymph # (Auto) 1.07 L (1.2-3.4) K/uL [place] # (Auto) 0.99 H (0.11-0.59) K/uL Eos # (Auto) 0.12 (0-0.5) K/uL Baso # (Auto) 0.02 (0-0.2) K/uL Sodium 138 (136-145) mmol/L Potassium 3.7 (3.5-5.1) mmol/L Chloride 103 (98-107) mmol/L Carbon Dioxide 31 (21-32) mmol/L Anion Gap 4.0 (3-11) BUN 9 (7-18) mg/dl Creatinine 0.70 (0.6-1.2) mg/dl Est Cr Clr Drug Dosing 59.4 ml/min Est GFR ( Amer) 94.2 Est GFR (Non-Af Amer) 81.3 BUN/Creatinine Ratio 13.0 (10-20) Glucose 101 H (70-99) mg/dl POC Glucose 107 H (70-99) Calcium 8.3 L (8.5-10.1) mg/dl Magnesium 1.6 L (1.8-2.4) mg/dl Total Bilirubin 0.9 (0.2-1) mg/dl AST 19 (15-37) U/L ALT 18 (12-78) U/L Alkaline Phosphatase 61 (45-117) U/L Total Protein 6.3 L (6.4-8.2) gm/dl Albumin 3.0 L (3.4-5.0) gm/dl Globulin 3.3 (2.5-4.0) gm/dl Albumin/Globulin Ratio 0.9 (0.9-2) 02/10/19 02/10/19 02/10/19 Range/Units 20:03 16:19 11:01 WBC (4.8-10.8) K/uL RBC (4.2-5.4) M/uL Hgb (12.0-16.0) g/dL Hct (37-47) % MCV (80-100) fL MCH (25-34) pg MCHC (32-36) g/dL RDW Std Deviation (36.4-46.3) fL RDW Coeff of Shahriar (11.5-14.5) % Plt Count (130-400) K/uL MPV (7.4-10.4) fL Immature Gran % (Auto) % Neut % (Auto) % Lymph % (Auto) % [place] % (Auto) % Eos % (Auto) % Baso % (Auto) % Immature Gran # (Auto) (0.00-0.02) K/uL Neut # (Auto) (1.4-6.5) K/uL Lymph # (Auto) (1.2-3.4) K/uL [place] # (Auto) (0.11-0.59) K/uL Eos # (Auto) (0-0.5) K/uL Baso # (Auto) (0-0.2) K/uL Sodium (136-145) mmol/L Potassium (3.5-5.1) mmol/L Chloride (98-107) mmol/L Carbon Dioxide (21-32) mmol/L Anion Gap (3-11) BUN (7-18) mg/dl Creatinine (0.6-1.2) mg/dl Est Cr Clr Drug Dosing ml/min Est GFR ( Amer) Est GFR (Non-Af Amer) BUN/Creatinine Ratio (10-20) Glucose (70-99) mg/dl POC Glucose 108 H 200 H 120 H (70-99) Calcium (8.5-10.1) mg/dl Magnesium (1.8-2.4) mg/dl Total Bilirubin (0.2-1) mg/dl AST (15-37) U/L ALT (12-78) U/L Alkaline Phosphatase (45-117) U/L Total Protein (6.4-8.2) gm/dl Albumin (3.4-5.0) gm/dl Globulin (2.5-4.0) gm/dl Albumin/Globulin Ratio (0.9-2) Medications Administered Current Inpatient Medications Acetaminophen (Tylenol) 650 mg PO Q4H PRN PRN Reason: Pain or Fever Stop: 03/11/19 00:22 Albuterol (Duoneb) 3 ml INH Q6H PRN PRN Reason: Shortness Of Breath Or Wheezing Stop: 03/11/19 00:22 Last Admin: 02/10/19 19:46 Dose: 3 ml Documented by: Albuterol (Ventolin Hfa) 2 puffs INH Q4H PRN PRN Reason: COUGH/WHEEZING Last Admin: 02/10/19 17:35 Dose: 2 puffs Documented by: Apixaban (Eliquis) 2.5 mg PO BID [facility] Stop: 03/11/19 08:59 Last Admin: 02/11/19 07:43 Dose: 2.5 mg Documented by: Budesonide (Pulmicort Respules) 0.5 mg INH BID [facility] Stop: 03/11/19 00:22 Last Admin: 02/11/19 06:57 Dose: 0.5 mg Documented by: Dextrose (Dextrose 50%) 25 - 50 ml IV UD PRN; Protocol PRN Reason: Hypoglycemia Protocol Stop: 03/11/19 00:44 Diltiazem HCl (Cardizem Cd) 240 mg PO [facility] Stop: 03/11/19 08:59 Last Admin: 02/11/19 07:44 Dose: 240 mg Documented by: Glucagon (Glucagen) 1 mg SQ UD PRN; Protocol PRN Reason: Hypoglycemia Protocol Stop: 03/11/19 00:44 Glucose (Glucose 40%) 15 - 30 gm PO UD PRN; Protocol PRN Reason: Hypoglycemia Protocol Stop: 03/11/19 00:44 Glucose (Dex4 Glucose) 4 - 8 tabs PO UD PRN; Protocol PRN Reason: Hypoglycemia Protocol Stop: 03/11/19 00:44 Insulin Aspart (Novolog Flexpen) 0 units SC ACHS [facility] Stop: 03/11/19 07:29 Last Admin: 02/11/19 07:57 Dose: Not Given Documented by: Metoprolol Succinate (Toprol Xl) 50 mg PO QAM [facility] Stop: 03/11/19 08:59 Last Admin: 02/11/19 07:42 Dose: 50 mg Documented by: Miscellaneous (Carbohydrates For Hypoglycemia) 15 - 30 gm PO UD PRN PRN Reason: Hypoglycemia Treatment Stop: 03/11/19 00:44 Montelukast Sodium (Singulair) 10 mg PO [facility] Stop: 03/11/19 08:59 Last Admin: 02/11/19 07:43 Dose: 10 mg Documented by: Nitroglycerin (Nitrostat) 0.4 mg SL UD PRN PRN Reason: Chest Pain Stop: 03/11/19 00:22 Ondansetron HCl (Zofran) 4 mg IV Q6H PRN PRN Reason: Nausea Stop: 03/11/19 00:22 Prednisone (Prednisone) 10 mg PO [facility] Stop: 03/11/19 08:59 Last Admin: 02/11/19 07:43 Dose: 10 mg Documented by: Ranitidine HCl (Zantac) 300 mg PO QPM [facility] Stop: 03/11/19 20:59 Last Admin: 02/10/19 20:53 Dose: 300 mg Documented by: Sertraline HCl (Zoloft) 50 mg PO [facility] Stop: 03/11/19 08:59 Last Admin: 02/11/19 07:44 Dose: 50 mg Documented by: Tramadol HCl (Ultram) 50 mg PO Q6H PRN PRN Reason: Pain, Moderate Stop: 03/11/19 00:22 Last Admin: 02/10/19 08:12 Dose: 50 mg Documented by: Vitamin D (Vitamin D3) 5,000 units PO [facility] Stop: 03/11/19 08:59 Last Admin: 02/11/19 07:42 Dose: 5,000 units Documented by: ECG Additional Comments: Pt on telemetry, remains in sinus rhythm
--- NOTE | 2019-02-11 10:32 | Discharge Summary ---
Date of Service February 11, 2019 Admission HPI Per Admitting Provider This is an 83-year-old female with past medical history significant for type 2 diabetes, hyperlipidemia, bronchiectasis, severe persistent asthma, nocturnal hypoxemia, atrial fibrillation, hypertension, gastroesophageal reflux disease, chronic kidney disease stage III, osteoporosis and spinal stenosis who presents with nausea, vomiting and diarrhea. The patient lives alone. Daughter lives very close by. They all ate sandwiches outside, but no one got sick. She woke up with several episodes of nausea, vomiting and diarrhea. No blood in the stools. No blood in the vomitus. Some abdominal discomfort. Patient seemed dehydrated,and was brought her here. The patient is somewhat lethargic. She complains she has some mild headache, some sore throat. No runny nose. The patient can tell her name, can tell her date of , but does not know the place where she is in. Daughter states whenever she gets dehydrated she gets confused but she will come back quickly back to usual self. No fever. No chills. Ambulates with the help of a walker. Currently hemodynamically stable. Admission Exam Per Admitting Provider GENERAL: The patient is alert and awake, oriented to name, can tell her date of . VITAL SIGNS: Temperature 37.2, pulse 76, respiratory rate 18, blood pressure 102/62 and oxygen 96% on 2 liters. HEENT: No pallor. No icterus. Pupils are equal, round and reactive to light. Oral mucosa dry. NECK: No JVD. No neck masses. No carotid bruits. CARDIOVASCULAR: S1, S2 heard. Regular rate and rhythm. No murmur. No gallop. RESPIRATORY SYSTEM: Normal AP diameter. No accessory muscle use. No wheezing. No crackles. ABDOMEN: Soft. Bowel sounds present. No guarding. No rigidity. No distention. CENTRAL NERVOUS SYSTEM: Alert and awake, oriented to name only, can tell her date of , obeys simple commands, moves extremities. EXTREMITIES: No edema. No erythema. Principal Diagnosis Atrial fibrillation w/ RVR, dehydration d/t nausea, vomiting and diarrhea, severe COPD, HTN Discharge Exam Constitutional well developed and well nourished; no acute distress Eyes PERRL, conjunctivae normal, anicteric sclerae ENMT external ear and nose normal, oropharynx normal Neck trachea midline, no thyromegaly Respiratory normal respiratory effort, lungs clear to auscultation Auscultation: + diminished lung sounds; no crackles, no rhonchi and no wheezes Cardiovascular RRR, no murmur, no edema Extremities: no edema Chest (Breasts) Chest: normal inspection of chest Gastrointestinal (Abdomen) Inspection/Auscultation: abdomen normal to inspection and normal bowel sounds; abdomen not distended Percussion/Palpation: abdomen soft; abdomen nontender and no guarding Musculoskeletal Head/Neck/Chest: normocephalic, head atraumatic and neck supple Extremities: extremities normal to inspection; normal muscle tone Skin no rashes, warm and dry Neurologic PERRL, EOMI, accommodation nl, no face palsy, no dysarthria Psychiatric A+Ox3, euthymic affect Speech: normal rate/rhythm/volume of speech Genitourinary no CVA tenderness Lymphatic no lymphedema and no cervical lymphadenopathy Discharge Data Allergies Allergy/AdvReac Type Severity Reaction Status Date / Time Cipro Allergy Intermediate hives, Verified 04/25/17 06:31 itching ciprofloxacin Allergy Intermediate hives, Verified 02/08/19 20:01 itching amoxicillin Allergy Mild itching,TOLERATING Verified 02/08/19 20:01 ZOSYN 01/04/14 clavulanic acid Allergy Mild ITCHING,TOLERATING Verified 02/08/19 20:01 ZOSYN 01/04/14 alendronate sodium AdvReac Intermediate feet and Verified 02/08/19 20:01 hand pain levofloxacin AdvReac Intermediate muscle pain Verified 02/08/19 20:01 Consultations 02/08/19 21:02 ED Decision to Admit Stat 02/09/19 00:23 Consult Case Management - Discharge Planning Routine 02/09/19 08:00 Consult Cardiology Routine Ordered Studies 02/08/19 19:11 CT abd pelvis wo con Stat Echo: Atrial fibrillation with rapid ventricular response was present during the echocardiogram, mild concentric LVH, left ventricular wall motion is normal, systolic function is normal with EF of 60 to 65% and aortic valve sclerosis mild without stenosis Hospital Course (1) Nausea vomiting and diarrhea: Admitted w/ nausea, vomiting and diarrhea - now resolved Likely secondary to gastroenteritis Noted to have dehydration with renal impairment and electrolyte abnormality on admission Received IVF cautiously Mild hypokalemia and hypomagnesemia -repleted (2) Atrial fibrillation with RVR: History of paroxysmal afib Noted to have atrial fibrillation with RVR following admission Initially received IV digoxin and cardizem, but did not work, then received IV amiodarone She converted to sinus rhythm on 02/09, IV amiodarone was stopped yesterday Cardiology consulted and follows Rate is well controlled now Now back on her home meds, cardizem and toprol, tolerates well Goal K>4, Mg>2, replaced mild hypokalemia and hypomagnesemia Echo: Atrial fibrillation with rapid ventricular response was present during the echocardiogram, mild concentric LVH, left ventricular wall motion is normal, systolic function is normal with EF of 60 to 65% and aortic valve sclerosis mild without stenosis. (3) HTN (hypertension): Noted to be hypotensive with rapid ventricular response - now resolved,and in sinus rhythm Received IV fluids to correct dehydration and increase blood pressure Resumed her home cardiac medications, toprol and cardizem, tolerates well BP seems to be controlled now (4) COPD, severe: History of COPD/asthma with bronchiectasis as mentioned below Seems to be in stable condition Denies any shortness of breath and/or wheezing (5) Bronchiectasis: As above DVT prophylaxis Cont. home Eliquis Plan to discharge home today with home health Total Time Total Time Spent Total Time Spent (In Minutes): 25 min Total Time Includes: Examination of the Patient, Discharge Planning, Medication Reconciliation and Communication With Other Providers Discharge Plan Discharge Items Patient Disposition: Home - Home Health Services Reason For Visit: NAUSEA / VOMITING / DIARRHEA Discharge Diagnosis: Atrial fibrillation w/ RVR, dehydration d/t nausea, vomiting and diarrhea, severe COPD, HTN Condition on Discharge: Good Activity: Resume your previous activity Non-emergency contact: Primary Care Provider Call non-emergency contact if: you have any medication questions and your symptoms worsen Follow-up/Referrals: Mamadou Torre MD [Primary Care Provider] - (Please follow up at your PCP office on 02/17 at 12:55) Diet: Carb Consistent or DM2 and Heart Healthy Addtl Attending Provider Instructions: Continue your home medications, and make sure to follow up with your primary care physician within next week. Pending Studies at Discharge: No Stand-Alone Forms: [employer], Smoking Cessation Medications and DC Order Prescriptions: Continued ranitidine HCl 300 mg Tablet 300 mg PO QPM RF: 0 montelukast [Singulair] 10 mg Tablet 10 mg PO QAM RF: 0 sennosides [Senokot] 8.6 mg Tablet 8.6 mg PO QDL RF: 0 prednisone 10 mg Tablet 10 mg PO QAM RF: 0 doxycycline hyclate 100 mg Capsule 100 mg PO DAILY PRN (Reason: breathing rescue kit) RF: 0 ipratropium-albuterol 0.5 mg-3 mg(2.5 mg base)/3 mL Solution For Nebulization 3 ml INHALATION Q6H PRN (Reason: Shortness Of Breath Or Wheezing) RF: 0 metoprolol succinate [Toprol XL] 50 mg Tablet Extended Release 24 Hr 50 mg PO QAM RF: 0 diltiazem HCl 240 mg capsule,extended release 24hr 240 mg PO QAM RF: 0 ondansetron HCl [Zofran] 4 mg Tablet 4 mg PO DIRECTED PRN (Reason: Nausea) RF: 0 prednisone 20 mg Tablet 60 mg PO DAILY PRN (Reason: breathing rescure kit) RF: 0 tramadol 50 mg Tablet 50 mg PO Q6H PRN (Reason: Pain, Moderate) RF: 0 metformin 1,000 mg Tablet 1,000 mg PO BID RF: 0 docusate sodium [Colace] 100 mg Capsule 100 mg PO BID RF: 0 budesonide 0.5 mg/2 mL Suspension For Nebulization 0.5 mg INHALATION BID RF: 0 furosemide [Lasix] 20 mg Tablet 20 mg PO DAILY PRN (Reason: swelling) RF: 0 polyethylene glycol 3350 [Miralax] 17 gram/dose Powder 17 g PO QDL RF: 0 albuterol sulfate [ProAir HFA] 90 mcg/actuation Hfa Aerosol Inhaler 2 puff INHALATION Q4H PRN (Reason: COUGH/WHEEZING) RF: 0 sertraline [Zoloft] 50 mg Tablet 50 mg PO QAM RF: 0 Forteo 20 mcg/dose - 600 mcg/2.4 mL Pen Injector 20 mcg SUBCUT QDD RF: 0 cholecalciferol (vitamin D3) [Vitamin D3] 5,000 unit Tablet 5,000 unit PO QAM RF: 0 Eliquis 2.5 mg tablet 2.5 mg PO BID RF: 0 Discharge Orders: Discharge Order (Routine); Ordered 02/11/19 Ordered By: Jimbo Dunlap Admission Data Admit Date/Time: 02/09/19 13:45 Attending Provider: Jimbo Dunlap Admit Provider: Mauri Santoro Primary Care Provider: Mamadou Torre Other Providers: Mauri Santoro ; Jcarlos Hudson ; Bill Paige ; Bairon Marie ; William Chun ; Ignacio Oneal ; Rojelio Farias ; Jazmin Aviles ; Sydnee Aceves ; Hayden Contreras Other Interventions: Discharge Summary Assessment (RN) Last Done: 02/11/19 11:29 DC Date/Time DO NOT enter until pt leaves facility: 02/11/19 12:21
[2019-02-11 11:45] VITALS: BP 138/68; PULSE 72
== END 2019-02-11 12:21 | disposition home health service (06) | DRG 392 ==
LOC: ED 17:19 → 2N 17:19 → 2E 02-09 03:31 → SUATTDRO 02-09 13:45

== ENCOUNTER 2019-06-23 14:59 | Inpatient (IN) ==
[2019-06-23] MEDS ORDERED: FAMOTIDINE 20MG/5ML IV PUSH IV STA (16:48)
[2019-06-23] MEDS ORDERED: ONDANSETRON INJ 2 MG/ML 2 ML VIAL IV STA (16:48)
[2019-06-23] MEDS ORDERED: ACETAMINOPHEN 1,000 MG/100 ML VIAL IV STA (16:50)
[2019-06-23] MEDS ORDERED: SODIUM CHLORIDE 0.9% 500 ML IV SCH (17:00)
--- NOTE | 2019-06-23 17:04 | XRay Report ---
XR chest 1V portable CLINICAL HISTORY: fever,cough COMPARISON STUDY: Chest radiograph August 16, 2019 and May 05, 2019. FINDINGS: Mild right hemithorax following loss is chronic. A peripherally calcified focus within the right lower hemithorax is unchanged. Apparent right pleural thickening is due to extrapleural fat. Th e appearance of the chest is unchanged. There is no consolidation or evidence for pulmonary edema. Ri ght rib deformities are incidentally noted IMPRESSION: No acute cardiopulmonary findings. No change in appearance of the chest. ACT 112: Negative or not required by law. Electronically signed by: Suraj Pope M.D. 06/23/2019 5:03 PM
[2019-06-23 17:50] LABS: Basophils # (auto) 0.02 K/uL (0-0.2); Basophils % (auto) 0.1 %; Hematocrit (blood only) 36.7 % (37-47); Hemoglobin 10.9 g/dL (12.0-16.0); Immature Granulocytes # (auto) 0.14 K/uL (0.00-0.02); Immature Granulocytes % (auto) 0.7 %; Lymphocytes # (auto) 1.39 K/uL (1.2-3.4); Lymphocytes % (auto) 6.8 %; Mean Corpuscular Hemoglobin 24.9 pg (25-34); Mean Corpuscular Hgb Conc 29.7 g/dL (32-36); Mean Corpuscular Volume 83.8 fL (80-100); Mean Platelet Volume 9.4 fL (7.4-10.4); Monocytes % (auto) 8.4 %; Neutrophils # (auto) 17.05 K/uL (1.4-6.5); Platelet Count 323 K/uL (130-400); RDW Coefficient of Variation 16.2 % (11.5-14.5); RDW Standard Deviation 49.2 fL (36.4-46.3); Red Blood Count 4.38 M/uL (4.2-5.4)
[2019-06-23 18:17] LABS: Alanine Aminotransferase 18 U/L (12-78); Albumin Level 3.2 gm/dl (3.4-5.0); Aspartate Aminotransferase 13 U/L (15-37); BUN Creatinine Ratio 21.1 (10-20); Blood Urea Nitrogen 23 mg/dl (7-18); Calcium 9.5 mg/dl (8.5-10.1); Carbon Dioxide 36 mmol/L (21-32); Chloride 92 mmol/L (98-107); Est GFR (African American) 53.9; Est GFR (Non-African American) 46.5; Glucose 107 mg/dl (70-99); Lipase 78 U/L (73-393); Magnesium 2.4 mg/dl (1.8-2.4); Potassium 4.2 mmol/L (3.5-5.1); Sodium 135 mmol/L (136-145)
[2019-06-23 18:22] LABS: Alkaline Phosphatase 41 U/L (45-117); Bilirubin,Total 0.6 mg/dl (0.2-1); Globulin 3.3 gm/dl (2.5-4.0); Total Protein 6.5 gm/dl (6.4-8.2); Troponin I < 0.015 ng/ml (0-0.045)
[2019-06-23] MEDS ORDERED: IOVERSOL 100ml IV PRN (18:47)
--- NOTE | 2019-06-23 19:02 | CT Scan Report ---
CT abd pelvis IV con only CT DOSE: 647.72 mGy.cm HISTORY: Obstruction poss obstruction TECHNIQUE: Multiaxial CT images of the abdomen and pelvis were performed following the use of intrave nous contrast. A dose lowering technique was utilized adhering to the principles of ALARA. COMPARISON STUDY: 02/08/2019 FINDINGS: Unchanged calcifications right and to a lesser extent left base. Liver is uniform. Prior ch olecystectomy. Moderate pancreatic atrophy. The kidneys are negative for hydronephrosis. Atherosclerotic change abdominal aorta as well as origin s of the major vasculature appear similar. Moderate increase in colonic fecal load with no evidence for colonic distention. Fluid-filled small bowel distention. Change in caliber with within the central soft tissue pelvic reg ion with no evidence for well-defined obstructing lesion. No significant abdominal pelvic or inguinal adenopathy. Findings of a stable ventral hernia repair procedure. IMPRESSION: 1. Findings consistent with distal small bowel obstruction. 2. Etiology is uncertain with no evidence for well-defined obstructing mass. 3. Increasing colonic fecal load consistent with colonic fecal stasis. ACT 112: Negative or not required by law. The above report was generated using voice recognition software. It may contain grammatical, syntax or spelling errors. Electronically signed by: Rojelio Sorto M.D. 06/23/2019 7:01 PM
[2019-06-23 19:57] LABS: Partial Thromboplastin Ratio 0.8; Partial Thromboplastin Time 21.9 Seconds (21.0-31.0)
[2019-06-23] MEDS ORDERED: ALBUT/IPRATROP 3MG/0.5MG NEB 3 ML VIAL NEB STA (20:13)
[2019-06-23] MEDS ORDERED: Heparin IV Low Dose *NO* Bolus IV STA (20:13)
[2019-06-23] MEDS ORDERED: bisacodyL 10 MG SUPP PR STA (20:13)
--- NOTE | 2019-06-23 20:14 | History & Physical Report ---
Date of Service June 23, 2019 Assessment & Plan (1) SBO (small bowel obstruction): chronic resp failure 2 to steroid-dependent COPD/bronchiectasis sp lobectomy/pulmonary hypertension on home O2 Pulmonary status at baseline with baseline wheezing PAF on Eliquis, px NSR HTN, stable prediabetes on metformin, recent outpatient hemoglobin A1c 6.2 last February 08 chronic anemia, hemoglobin at baseline Medical telemetry given need to administer IV chronotropic meds for patient's PAF Continue NGT, bowel rest Bowel regimen Surgeon consult Re: SBO (ER provider relating that to Dr. Brantley.) IV heparin while Eliquis on hold while patient n.p.o. ISS BG goal [id number] DVT prophylaxis. IV heparin Full code Patient's daughter requesting updates providers. Ms. Kayleigh Macias, contact #[phone]. Text document was generated using [employer] voice recognition software. It may contain grammatical or spelling errors. Kindly contact undersigned for clarification of any documentation item in question. History of Present Illness Chief Complaint: Abdominal pain Primary Care Provider: Mamadou Torre MD History obtained from patient, family, and records. 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 Recent confinement January 2019 for rapid AVR secondary to gastroenteritis. Patient seen at the ER last week with cough S OB symptoms. Discharge on Levaquin course for pneumonia. Symptoms resolved as per patient/family. Yesterday patient noted increased constipation followed by emesis followed by achy lower abdominal pain going to the back. No chest pain, no S OB, no fever, no chills. At the ER, NGT inserted for bowel obstruction. MEDICAL HISTORY: As above. History of confinement [facility] [place] August 2015 for septic shock secondary to colonic pseudoobstruction status post sigmoidoscopic decompression and neostigmine administration. Neostigmine stopped due to concern for ischemic bowel at splenic flexure as per note. SURGERIES: Hysterectomy, cholecystectomy, lobectomy of the lung, cataract surgery, hernia repair. FAMILY HISTORY: Hypertension. Diabetes, COPD PERSONAL AND SOCIAL HISTORY: Nonsmoker, no ETOH employee, retired [employer] employee. Allergies Allergy/AdvReac Type Severity Reaction Status Date / Time Cipro Allergy Intermediate hives, Verified 04/25/17 06:31 itching ciprofloxacin Allergy Intermediate hives, Verified 06/23/19 16:54 itching amoxicillin Allergy Mild Itching Verified 06/23/19 16:54 clavulanic acid Allergy Mild Itching Verified 06/23/19 16:54 alendronate sodium AdvReac Intermediate feet and Verified 06/23/19 16:54 hand pain levofloxacin AdvReac Intermediate muscle pain Verified 06/23/19 16:54 Home Medications Home Medications Medication Instructions Recorded Confirmed Type Eliquis 2.5 mg PO BID 07/30/18 06/23/19 History albuterol sulfate [ProAir HFA] 2 puff INHALATION Q4H PRN 07/30/18 06/23/19 History budesonide 0.5 mg INHALATION BID 07/30/18 06/23/19 History cholecalciferol (vitamin D3) 5,000 unit PO QAM 07/30/18 06/23/19 History [Vitamin D3] diltiazem HCl 240 mg PO QAM 07/30/18 06/23/19 History docusate sodium [Colace] 100 mg PO BID 07/30/18 06/23/19 History doxycycline hyclate 100 mg PO BID PRN 07/30/18 06/23/19 History furosemide [Lasix] 20 mg PO DAILY PRN 07/30/18 06/23/19 History ipratropium-albuterol 3 ml INHALATION Q6H PRN 07/30/18 06/23/19 History metformin 1,000 mg PO BID 07/30/18 06/23/19 History metoprolol succinate [Toprol XL] 50 mg PO QAM 07/30/18 06/23/19 History polyethylene glycol 3350 [Miralax] 17 g PO QDL 07/30/18 06/23/19 History prednisone 10 mg PO QAM 07/30/18 06/23/19 History sennosides [Senokot] 8.6 mg PO QDL 07/30/18 06/23/19 History sertraline [Zoloft] 50 mg PO QAM 07/30/18 06/23/19 History tramadol 50 mg PO QAM 07/30/18 06/23/19 History montelukast [Singulair] 10 mg PO QAM 02/08/19 06/23/19 History acetaminophen [Tylenol Arthritis 650 mg PO HS PRN 05/05/19 06/23/19 History Pain] omeprazole 20 mg PO HS 05/05/19 06/23/19 History lactobacillus combination no.4 0 mmu cells PO HS 06/23/19 06/23/19 History [Probiotic] levofloxacin 750 mg PO DAILY 06/23/19 06/23/19 History nitrofurantoin monohyd/m-cryst 100 mg PO DAILY PRN 06/23/19 06/23/19 History ondansetron 4 mg PO Q8H PRN 06/23/19 06/23/19 History Past Med/Surg History Medical History Arthritis (Chronic) Bronchiectasis (Chronic) COPD, severe (Chronic) GERD (gastroesophageal reflux disease) (Chronic) HTN (hypertension) (Chronic) Hyperlipidemia (Chronic) "statin intolerance" Nocturnal hypoxemia (Chronic) Paroxysmal a-fib (Chronic) Pneumonia (Acute) Pulmonary hypertension (Chronic) SBO (small bowel obstruction) (Chronic) Shortness of breath Spinal stenosis (Chronic) Surgical History H/O hernia repair (Chronic) H/O: hysterectomy (Chronic) History of cataract surgery (Chronic) History of cholecystectomy (Chronic) 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" Family History Other Family history non-contributory Social History Preferred Language: Luxembourger Communication Ability: Effective Bicycle I Assembler Required: No Beliefs That Will Affect Care: None marital status: Current Living Situation: Alone current occupational status: retired Feels Safe at Home: Yes Smoking Status: Never smoker Hx Alcohol Use: No Hx Substance Use: No Review of Systems Review of Systems: As per HPI, all 10 systems reviewed, all other ROS negative Physical Exam Physical Exam: GENERAL: uncomfortable, no respiratory distress SKIN: Pallor , warm HEENT: Pale palpebral conjunctivae, no ptosis, dry buccal mucosa, NGT in place NECK : Supple, no tenderness CHEST : Decreased breath sounds , no tenderness HEART : RRR, no obvious murmurs ABDOMEN: Some distention, minimal hypogastric tenderness EXTREMITIES : No LE swelling/tenderness, chronic venous stasis upper and lower extremities, dressing over left lower extremity, no other conspicuous deformities noted NEUROLOGIC : Coherent, no facial asymmetry, no other gross focality Results & Data Vital Signs (Past 12 Hours) Vital Signs Temp Pulse Pulse Resp BP BP Pulse Ox 06/23/19 17:26 72 18 121/73 92 06/23/19 17:09 92 06/23/19 15:45 36.9 C 72 20 134/81 93 Laboratory Results Laboratory Results WBC 20.30 K/uL (4.8-10.8) H 06/23/19 17:23 RBC 4.38 M/uL (4.2-5.4) 06/23/19 17:23 Hgb 10.9 g/dL (12.0-16.0) L 06/23/19 17:23 Hct 36.7 % (37-47) L 06/23/19 17:23 MCV 83.8 fL (80-100) 06/23/19 17:23 MCH 24.9 pg (25-34) L 06/23/19 17:23 MCHC 29.7 g/dL (32-36) L 06/23/19 17:23 RDW Std Deviation 49.2 fL (36.4-46.3) H 06/23/19 17:23 RDW Coeff of Shahriar 16.2 % (11.5-14.5) H 06/23/19 17:23 Plt Count 323 K/uL (130-400) 06/23/19 17:23 MPV 9.4 fL (7.4-10.4) 06/23/19 17:23 Immature Gran % (Auto) 0.7 % 06/23/19 17:23 Neut % (Auto) 84.0 % 06/23/19 17:23 Lymph % (Auto) 6.8 % 06/23/19 17:23 [place] % (Auto) 8.4 % 06/23/19 17:23 Eos % (Auto) 0.0 % 06/23/19 17:23 Baso % (Auto) 0.1 % 06/23/19 17:23 Immature Gran # (Auto) 0.14 K/uL (0.00-0.02) H 06/23/19 17:23 Neut # (Auto) 17.05 K/uL (1.4-6.5) H 06/23/19 17:23 Lymph # (Auto) 1.39 K/uL (1.2-3.4) 06/23/19 17:23 [place] # (Auto) 1.70 K/uL (0.11-0.59) H 06/23/19 17:23 Eos # (Auto) 0.00 K/uL (0-0.5) 06/23/19 17:23 Baso # (Auto) 0.02 K/uL (0-0.2) 06/23/19 17:23 APTT 21.9 Seconds (21.0-31.0) 06/23/19 17:23 PTT Ratio 0.8 06/23/19 17:23 Sodium 135 mmol/L (136-145) L 06/23/19 17:23 Potassium 4.2 mmol/L (3.5-5.1) 06/23/19 17:23 Chloride 92 mmol/L (98-107) L 06/23/19 17:23 Carbon Dioxide 36 mmol/L (21-32) H 06/23/19 17:23 Anion Gap 7.0 (3-11) 06/23/19 17:23 BUN 23 mg/dl (7-18) H 06/23/19 17:23 Creatinine 1.11 mg/dl (0.6-1.2) 06/23/19 17:23 Est Cr Clr Drug Dosing Not Reportable 06/23/19 17:23 Est GFR ( Amer) 53.9 06/23/19 17:23 Est GFR (Non-Af Amer) 46.5 06/23/19 17:23 BUN/Creatinine Ratio 21.1 (10-20) H 06/23/19 17:23 Glucose 107 mg/dl (70-99) H 06/23/19 17:23 Calcium 9.5 mg/dl (8.5-10.1) 06/23/19 17:23 Magnesium 2.4 mg/dl (1.8-2.4) 06/23/19 17:23 Total Bilirubin 0.6 mg/dl (0.2-1) 06/23/19 17:23 AST 13 U/L (15-37) L 06/23/19 17:23 ALT 18 U/L (12-78) 06/23/19 17:23 Alkaline Phosphatase 41 U/L (45-117) L 06/23/19 17:23 Troponin I < 0.015 ng/ml (0-0.045) 06/23/19 17:23 Total Protein 6.5 gm/dl (6.4-8.2) 06/23/19 17:23 Albumin 3.2 gm/dl (3.4-5.0) L 06/23/19 17:23 Globulin 3.3 gm/dl (2.5-4.0) 06/23/19 17:23 Albumin/Globulin Ratio 1.0 (0.9-2) 06/23/19 17:23 Lipase 78 U/L (73-393) 06/23/19 17:[address] abdomen pelvis: 1. Findings consistent with distal small bowel obstruction. 2. Etiology is uncertain with no evidence for well-defined obstructing mass. 3. Increasing colonic fecal load consistent with colonic fecal stasis. Chest x-ray : No acute cardiopulmonary findings. No change in appearance of the chest. EKG as per my interpretation : Rate 70, NSR, LAD, LAFB, no ischemia
[2019-06-23] MEDS ORDERED: PATIENT'S HEIGHT AND/OR WEIGHT NEEDED STA (20:17)
--- NOTE | 2019-06-23 20:26 | XRay Report ---
XR chest 1V portable CLINICAL HISTORY: ng tube placement COMPARISON STUDY: Same date FINDINGS: Nasogastric tube placed within the thoracic esophagus. The tube is coiled with the tip in t he upper thoracic region. All remaining components of the study are unchanged. IMPRESSION: Nasogastric tube is coiled within the thoracic esophagus with the tip located in the upp er thoracic esophagus. ACT 112: Negative or not required by law. The above report was generated using voice recognition software. It may contain grammatical, syntax or spelling errors. Electronically signed by: Rojelio Sorto M.D. 06/23/2019 8:25 PM
[2019-06-23] MEDS ORDERED: GLUCOSE 10 TABS/TUBE PO PRN (21:55)
[2019-06-23] MEDS ORDERED: CARBOHYDRATES FOR HYPOGLYCEMIA PO PRN (21:55)
[2019-06-23] MEDS ORDERED: GLUCAGON FOR INJ 1 MG VIAL SQ PRN (21:55)
[2019-06-23] MEDS ORDERED: GLUCOSE 40% GEL 15 GM TUBE PO PRN (21:55)
[2019-06-23] MEDS ORDERED: DEXTROSE 50% 50 ML SYRINGE IV PRN (21:55)
[2019-06-23] MEDS ORDERED: PROMETHAZINE HCL 12.5 MG in SODIUM CHLORIDE 0.9% 50 ML IV PRN (21:55)
[2019-06-23] MEDS ORDERED: MoRPHine SULFATE 4 MG/ML 1 ML CARP\\VIAL IV PRN (21:55)
[2019-06-23] MEDS ORDERED: BUDESONIDE 0.5 MG/2 ML VIAL (PULMICORT) INH SCH (21:55)
[2019-06-23] MEDS ORDERED: LACTULOSE SYRUP 30 GM/45 ML UDP PO ONE (22:05)
[2019-06-23] MEDS: HEPARIN SODIUM/DEXTROSE 25,000 UNITS/500 ML BAG IV SCH (22:30)
[2019-06-23] MEDS: SODIUM CHLORIDE 0.9% 1000ML 1,000 ML IV SCH (22:30)
[2019-06-23] MEDS: INSULIN ASPART 100 UNITS/ML 3 ML PEN SC SCH (22:30)
[2019-06-23] MEDS: PANTOprazole 40 MG TAB PO SCH (22:39)
[2019-06-23] MEDS: DOCUSATE SODIUM/SENNA 50/8.6MG TAB PO SCH (22:40)
[2019-06-23] MEDS: LACTOBACILLUS ACIDOPHILUS (FLORANEX) TAB PO SCH (22:40)
[2019-06-24] MEDS ORDERED: METOPROLOL TARTRATE 1 MG/ML VIAL IV SCH
--- NOTE | 2019-06-24 00:56 | Emergency Department Note ---
Entered by Izabella Guerrero acting as a scribe for Nolan Esteban MD History of Present Illness General Chief complaint: Vomiting Stated complaint: VOMITING GREEN - REF BY HOME NURSE Time Seen by Provider: 06/23/19 16:40 Source: patient and family History of Present Illness Onset (ago): hour(s) (this morning) Location: abdomen Pain Consistency: + constant Maximum Pain Intensity: 7 Associated symptoms: + denies other symptoms (diarrhea), + nausea/vomiting ("greenish" vomit), + shortness of breath and + other (lower diffuse abdominal pain radiating to right flank, feels need to pass BM x2 days) Treatments prior to arrival: other (Miralax, prune juice, gatorade (no relief of abd pain), albuterol inhaler for relief of SOB) The patient is an 83 year old female with a history of bowel blockage, left basilar pneumonia, and lobectomy of the right lung who presents to the Emergency Room with complaints of nausea and vomiting. 1 day ago the patient began to experience constant lower diffuse abdominal pain that radiates to her right flank. She explains that her pain is worse today and that she feels the need to pass a BM. The patient drank prune juice, Gatorade, and Miralax with no relief. Additionally the patient began to experience nausea and vomiting "greenish in color" this morning that was continuous throughout the day. Daughter states that she lives across the street from the patient and that her and children just recently got over the stomach bug. The patient also includes feeling slight shortness of breath today and took 2 puffs of her albuterol inhaler for relief. Of note, she admits to taking all of her prescribed morning medications but she is unsure if they stayed down. She is still due for her evening meds. She denies diarrhea and offers no further concerns at this time. Home Medications Home Medications Medication Instructions Recorded Confirmed Type Eliquis 2.5 mg PO BID 07/30/18 06/23/19 History albuterol sulfate [ProAir HFA] 2 puff INHALATION Q4H PRN 07/30/18 06/23/19 History budesonide 0.5 mg INHALATION BID 07/30/18 06/23/19 History cholecalciferol (vitamin D3) 5,000 unit PO QAM 07/30/18 06/23/19 History [Vitamin D3] diltiazem HCl 240 mg PO QAM 07/30/18 06/23/19 History docusate sodium [Colace] 100 mg PO BID 07/30/18 06/23/19 History doxycycline hyclate 100 mg PO BID PRN 07/30/18 06/23/19 History furosemide [Lasix] 20 mg PO DAILY PRN 07/30/18 06/23/19 History ipratropium-albuterol 3 ml INHALATION Q6H PRN 07/30/18 06/23/19 History metformin 1,000 mg PO BID 07/30/18 06/23/19 History metoprolol succinate [Toprol XL] 50 mg PO QAM 07/30/18 06/23/19 History polyethylene glycol 3350 [Miralax] 17 g PO QDL 07/30/18 06/23/19 History prednisone 10 mg PO QAM 07/30/18 06/23/19 History sennosides [Senokot] 8.6 mg PO QDL 07/30/18 06/23/19 History sertraline [Zoloft] 50 mg PO QAM 07/30/18 06/23/19 History tramadol 50 mg PO QAM 07/30/18 06/23/19 History montelukast [Singulair] 10 mg PO QAM 02/08/19 06/23/19 History acetaminophen [Tylenol Arthritis 650 mg PO HS PRN 05/05/19 06/23/19 History Pain] omeprazole 20 mg PO HS 05/05/19 06/23/19 History lactobacillus combination no.4 0 mmu cells PO HS 06/23/19 06/23/19 History [Probiotic] levofloxacin 750 mg PO DAILY 06/23/19 06/23/19 History nitrofurantoin monohyd/m-cryst 100 mg PO DAILY PRN 06/23/19 06/23/19 History ondansetron 4 mg PO Q8H PRN 06/23/19 06/23/19 History Allergies Allergy/AdvReac Type Severity Reaction Status Date / Time Cipro Allergy Intermediate hives, Verified 04/25/17 06:31 itching ciprofloxacin Allergy Intermediate hives, Verified 06/23/19 16:54 itching amoxicillin Allergy Mild Itching Verified 06/23/19 16:54 clavulanic acid Allergy Mild Itching Verified 06/23/19 16:54 alendronate sodium AdvReac Intermediate feet and Verified 06/23/19 16:54 hand pain levofloxacin AdvReac Intermediate muscle pain Verified 06/23/19 16:54 Past Med/Surg History Medical History Arthritis (Chronic) Bronchiectasis (Chronic) COPD, severe (Chronic) GERD (gastroesophageal reflux disease) (Chronic) HTN (hypertension) (Chronic) Hyperlipidemia (Chronic) "statin intolerance" Nocturnal hypoxemia (Chronic) Paroxysmal a-fib (Chronic) Pneumonia (Acute) Pulmonary hypertension (Chronic) SBO (small bowel obstruction) (Chronic) Shortness of breath Spinal stenosis (Chronic) Surgical History H/O hernia repair (Chronic) H/O: hysterectomy (Chronic) History of cataract surgery (Chronic) History of cholecystectomy (Chronic) 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 and A total of 10 systems reviewed and were otherwise negative Physical Exam Vital Signs Vital Signs - 24 hr 06/23/19 15:45 06/23/19 17:09 06/23/19 17:26 Temperature 36.9 C Temperature Source Oral Pulse Rate 72 Pulse Rate [Apical] 72 Respiratory Rate 20 18 Respiratory Effort / Characteristics Non-Labored Spontaneous Blood Pressure 134/81 Blood Pressure [Right Arm] 121/73 Blood Pressure Mean 98 Blood Pressure Mean [Right Arm] 89 Blood Pressure Position Sitting Pulse Oximetry 93 92 92 Oxygen Delivery Method Room Air Room Air Room Air Sepsis Recent Fever Within 48 Hours No Sepsis New/Unexplained Change in Mental Status No Sepsis Action Taken by Nursing No Action Required GENERAL: Patient is in no acute distress. HEENT: No acute trauma, normocephalic atraumatic, mucous membranes moist, no nasal congestion, no scleral icterus. NECK: No stridor, no adenopathy, no meningismus, trachea is midline. LUNGS: Clear to auscultation bilaterally, no wheeze, no rhonchi, breath sounds equal. HEART: Without murmurs gallops or rubs, regular rate and rhythm. ABDOMEN: Mild distension, mildly tender along left portion of abdomen, no peritonitis, no hernia. EXTREMITIES: No cyanosis or edema, full range of motion of all the joints without pain or difficulty, no signs for acute trauma. NEUROLOGIC: Oriented x 3, no acute motor or sensory deficits, no focal weakness. SKIN: No rash, no jaundice, no diaphoresis. Course Course 1642: Past medical records reviewed. The patient was evaluated in room B07. A complete history and physical exam was performed. 1814: I checked on the patient and updated her on test results. 1919: I re-checked the patient and she is up to date on plan to admit. The p atient verbally expressed understanding and agreement of the treatment plan. The patient will be evaluated for further treatment. She is currently getting an NG tube. 2015: I spoke to Dr. Brantley, General Surgery who recommends a medical admission for now and to speak to medicine as nothing is acutely surgical. 2020: I spoke to Dr. Alcocer, [facility] Hospitalist who will further evaluate the patient. Administered Medications Budesonide (Pulmicort Respules) 0.5 mg INH BIDR [facility] Stop: 07/24/19 06:59 Last Admin: 06/24/19 07:27 Dose: 0.5 mg Documented by: [id number] Diltiazem HCl (Cardizem Cd) 240 mg PO QAM [facility] Stop: 07/24/19 08:59 Last Admin: 06/24/19 09:14 Dose: 240 mg Documented by: [id number] Cosigned by: [id number] Heparin Sodium/Dextrose (Heparin Sodium/Dextrose) 25,000 units in 500 mls @ 18 mls/hr IV .Q24H [facility]; Protocol Stop: 07/23/19 20:14 Last Titration: 06/24/19 07:11 Dose: 900 units/hr, 18 mls/hr Documented by: [id number] Cosigned by: [id number] Titration: 06/24/19 05:50 Dose: 900 units/hr, 18 mls/hr Documented by: [id number] Cosigned by: [id number] Titration: 06/24/19 04:42 Dose: 0 units/hr, 0 mls/hr Documented by: [id number] Cosigned by: [id number] Titration: 06/24/19 01:55 Dose: 750 units/hr, 15 mls/hr Documented by: [id number] Cosigned by: [id number] Titration: 06/24/19 01:05 Dose: 0 units/hr, 0 mls/hr Documented by: [id number] Cosigned by: [id number] Titration: 06/23/19 23:01 Dose: 750 units/hr, 15 mls/hr Documented by: [id number] Cosigned by: [id number] Admin: 06/23/19 22:30 Dose: 750 units/hr, 15 mls/hr Documented by: [id number] Cosigned by: [id number] Sodium Chloride (Nss 1000ml) 1,000 mls @ 60 mls/hr IV .[id number] [facility] Stop: 07/23/19 21:54 Last Infusion: 06/24/19 05:50 Dose: 60 mls/hr Documented by: [id number] Infusion: 06/24/19 04:42 Dose: 0 mls/hr Documented by: [id number] Admin: 06/23/19 22:30 Dose: 60 mls/hr Documented by: [id number] Promethazine HCl 12.5 mg/ (Sodium Chloride) 50.5 mls @ 202 mls/hr IV Q6H PRN PRN Reason: Nausea And Vomiting Stop: 07/23/19 21:54 Last Infusion: 06/24/19 01:55 Dose: 0 mls/hr Documented by: [id number] Admin: 06/24/19 01:05 Dose: 202 mls/hr Documented by: [id number] Insulin Aspart (Novolog Flexpen) 0 units SC ACHS [facility] Stop: 07/23/19 21:54 Last Admin: 06/24/19 09:15 Dose: Not Given Documented by: [id number] Admin: 06/23/19 22:30 Dose: Not Given Documented by: [id number] Cosigned by: [id number] Ipratropium [place] (Atrovent 0.02% 0.5mg/2.5ml) 0.5 mg INH Q6R [facility] Stop: 07/24/19 00:59 Last Admin: 06/24/19 07:27 Dose: 0.5 mg Documented by: [id number] Admin: 06/24/19 01:26 Dose: 0.5 mg Documented by: [id number] Lactobacillus Acidophilus (Floranex) 4 tab PO HS [facility] Stop: 07/23/19 22:29 Last Admin: 06/23/19 22:40 Dose: 4 tab Documented by: [id number] Levalbuterol HCl (Xopenex 1.25mg/0.5ml Neb) 1.25 mg INH Q6R [facility] Stop: 07/24/19 00:59 Last Admin: 06/24/19 07:27 Dose: 1.25 mg Documented by: [id number] Admin: 06/24/19 01:26 Dose: 1.25 mg Documented by: [id number] Metoprolol Succinate ([facility] Xl) [facility] Stop: 07/24/19 08:59 Last Admin: 06/24/19 09:14 Dose: 50 mg Documented by: [id number] Cosigned by: [id number] Montelukast Sodium (Singulair) 10 mg PO [facility] Stop: 07/24/19 08:59 Last Admin: 06/24/19 09:16 Dose: 10 mg Documented by: [id number] Cosigned by: [id number] Pantoprazole Sodium (Protonix) 40 mg PO [facility] Stop: 07/23/19 22:29 Last Admin: 06/23/19 22:39 Dose: 40 mg Documented by: [id number] Polyethylene Glycol (Miralax Powder Packet) 17 gm PO DAILY [facility] Stop: 07/24/19 08:59 Last Admin: 06/24/19 09:15 Dose: Not Given Documented by: [id number] Senna/Docusate Sodium (Senokot S) 1 tab PO BID [facility] Stop: 07/23/19 21:54 Last Admin: 06/24/19 09:14 Dose: 1 tab Documented by: [id number] Cosigned by: [id number] Admin: 06/23/19 22:40 Dose: 1 tab Documented by: [id number] Sertraline HCl (Zoloft) [facility] Stop: 07/24/19 08:59 Last Admin: 06/24/19 09:16 Dose: 50 mg Documented by: [id number] Cosigned by: [id number] Discontinued Medications Albuterol (Duoneb) 3 ml NEB NOW STA Stop: 06/23/19 20:14 Last Admin: 06/23/19 20:49 Dose: 3 ml Documented by: [id number] Bisacodyl (Dulcolax) 10 mg [place] NOW STA Stop: 06/23/19 20:14 Last Admin: 06/23/19 21:28 Dose: 10 mg Documented by: [id number] Budesonide (Pulmicort Respules) 0.5 mg INH BID [facility] Stop: 07/23/19 21:54 Last Admin: 06/23/19 22:26 Dose: Not Given Documented by: [id number] Famotidine (Pepcid 20mg Iv Push) 20 mg IV ONE STA Stop: 06/23/19 16:49 Last Admin: 06/23/19 17:36 Dose: 20 mg Documented by: [id number] Heparin Sodium/Dextrose () 1 ea IV NOW STA; Protocol Stop: 06/23/19 20:14 Last Admin: 06/23/19 22:22 Dose: Not Given Documented by: [id number] Sodium Chloride (Nss) 500 mls @ 999 mls/hr IV .Q31M [facility] Stop: 06/23/19 17:30 Last Infusion: 06/23/19 18:34 Dose: 0 mls/hr Documented by: [id number] Admin: 06/23/19 17:36 Dose: 999 mls/hr Documented by: [id number] Acetaminophen (Ofirmev) 1,000 mg in 100 mls @ 400 mls/hr IV NOW STA Stop: 06/23/19 17:04 Last Infusion: 06/23/19 18:35 Dose: 0 mls/hr Documented by: [id number] Admin: 06/23/19 17:36 Dose: 400 mls/hr Documented by: [id number] Heparin Sodium (Porcine) 4,000 (units/ Syringe) 4 mls @ 10 mls/min IV ONE ONE Stop: 06/24/19 05:24 Last Admin: 06/24/19 05:49 Dose: 10 mls/min Documented by: [id number] Cosigned by: [id number] Dexamethasone Sodium Phosphate (4 mg/ Syringe) 1 mls @ 1 mls/min IV NOW STA Stop: 06/24/19 05:36 Last Admin: 06/24/19 05:49 Dose: 1 mls/min Documented by: [id number] Ioversol (Optiray 320 100ml) 90 ml IV ONCE PRN PRN Reason: Interaction Checking Stop: 06/27/19 18:46 Last Admin: 06/23/19 18:47 Dose: 90 ml Documented by: [id number] Lactulose (Chronulac) 30 gm PO NOW ONE Stop: 06/23/19 22:06 Last Admin: 06/23/19 22:39 Dose: 30 gm Documented by: [id number] Metoprolol Tartrate (Lopressor) 2.5 mg IV Q6 [facility] Stop: 07/24/19 00:00 Last Admin: 06/24/19 00:00 Dose: 2.5 mg Documented by: [id number] Miscellaneous (Patient's Height And/Or Weight Needed) 1 ea N/A ONE STA Stop: 06/23/19 20:18 Last Admin: 06/23/19 22:22 Dose: Not Given Documented by: [id number] Ondansetron HCl (Zofran) 4 mg IV NOW STA Stop: 06/23/19 16:49 Last Admin: 06/23/19 17:36 Dose: 4 mg Documented by: [id number] Medical Decision Making Differential Diagnosis Differential diagnosis includes but is not limited to SBO, constipation, dehydration, UTI, hernia, pancreatitis, diverticulitis, viral illness, medication reaction. Medical Records Attestation: I reviewed the patient's medical records. The patient was seen in the ED on 06/17/19 for SOB and had a white count of 18,000 at this time. She was diagnosed with left basilar pneumonia and requested to go home if possible. She was discharged home on Prednisone and Levaquin. Home Medications Current Medication List: was personally reviewed by me Laboratory Data Attestation: I reviewed the patient's lab results. Result diagrams: 06/24/19 04:37 06/24/19 04:37 Lab Results 06/23/19 06/23/19 06/23/19 Range/Units 17:23 17:23 17:23 WBC 20.30 H (4.8-10.8) K/uL RBC 4.38 (4.2-5.4) M/uL Hgb 10.9 L (12.0-16.0) g/dL Hct 36.7 L (37-47) % MCV 83.8 (80-100) fL MCH 24.9 L (25-34) pg MCHC 29.7 L (32-36) g/dL RDW Std Deviation 49.2 H (36.4-46.3) fL RDW Coeff of Shahriar 16.2 H (11.5-14.5) % Plt Count 323 (130-400) K/uL MPV 9.4 (7.4-10.4) fL Immature Gran % (Auto) 0.7 % Neut % (Auto) 84.0 % Lymph % (Auto) 6.8 % [place]alier % (Auto) 8.4 % Eos % (Auto) 0.0 % Baso % (Auto) 0.1 % Immature Gran # (Auto) 0.14 H (0.00-0.02) K/uL Neut # (Auto) 17.05 H (1.4-6.5) K/uL Lymph # (Auto) 1.39 (1.2-3.4) K/uL [place]ier # (Auto) 1.70 H (0.11-0.59) K/uL Eos # (Auto) 0.00 (0-0.5) K/uL Baso # (Auto) 0.02 (0-0.2) K/uL PT (9.0-12.0) Seconds INR (0.9-1.1) APTT 21.9 (21.0-31.0) Seconds PTT Ratio 0.8 Sodium 135 L (136-145) mmol/L Potassium 4.2 (3.5-5.1) mmol/L Chloride 92 L (98-107) mmol/L Carbon Dioxide 36 H (21-32) mmol/L Anion Gap 7.0 (3-11) BUN 23 H (7-18) mg/dl Creatinine 1.11 (0.6-1.2) mg/dl Est Cr Clr Drug Dosing Not Reportable Est GFR ( Amer) 53.9 Est GFR (Non-Af Amer) 46.5 BUN/Creatinine Ratio 21.1 H (10-20) Glucose 107 H (70-99) mg/dl Estimat Average Glucose mg/dl Hemoglobin A1c (4.5-5.6) % Calcium 9.5 (8.5-10.1) mg/dl Magnesium 2.4 (1.8-2.4) mg/dl Total Bilirubin 0.6 (0.2-1) mg/dl AST 13 L (15-37) U/L ALT 18 (12-78) U/L Alkaline Phosphatase 41 L (45-117) U/L Troponin I < 0.015 (0-0.045) ng/ml Total Protein 6.5 (6.4-8.2) gm/dl Albumin 3.2 L (3.4-5.0) gm/dl Globulin 3.3 (2.5-4.0) gm/dl Albumin/Globulin Ratio 1.0 (0.9-2) Lipase 78 (73-393) U/L 06/23/19 06/23/19 Range/Units 17:23 17:23 WBC (4.8-10.8) K/uL RBC (4.2-5.4) M/uL Hgb (12.0-16.0) g/dL Hct (37-47) % MCV (80-100) fL MCH (25-34) pg MCHC (32-36) g/dL RDW Std Deviation (36.4-46.3) fL RDW Coeff of Shahriar (11.5-14.5) % Plt Count (130-400) K/uL MPV (7.4-10.4) fL Immature Gran % (Auto) % Neut % (Auto) % Lymph % (Auto) % [place]ier % (Auto) % Eos % (Auto) % Baso % (Auto) % Immature Gran # (Auto) (0.00-0.02) K/uL Neut # (Auto) (1.4-6.5) K/uL Lymph # (Auto) (1.2-3.4) K/uL [place] # (Auto) (0.11-0.59) K/uL Eos # (Auto) (0-0.5) K/uL Baso # (Auto) (0-0.2) K/uL PT 10.0 (9.0-12.0) Seconds INR 1.0 (0.9-1.1) APTT (21.0-31.0) Seconds PTT Ratio Sodium (136-145) mmol/L Potassium (3.5-5.1) mmol/L Chloride (98-107) mmol/L Carbon Dioxide (21-32) mmol/L Anion Gap (3-11) BUN (7-18) mg/dl Creatinine (0.6-1.2) mg/dl Est Cr Clr Drug Dosing Est GFR ( Amer) Est GFR (Non-Af Amer) BUN/Creatinine Ratio (10-20) Glucose (70-99) mg/dl Estimat Average Glucose 137 mg/dl Hemoglobin A1c 6.4 H (4.5-5.6) % Calcium (8.5-10.1) mg/dl Magnesium (1.8-2.4) mg/dl Total Bilirubin (0.2-1) mg/dl AST (15-37) U/L ALT (12-78) U/L Alkaline Phosphatase (45-117) U/L Troponin I (0-0.045) ng/ml Total Protein (6.4-8.2) gm/dl Albumin (3.4-5.0) gm/dl Globulin (2.5-4.0) gm/dl Albumin/Globulin Ratio (0.9-2) Lipase (73-393) U/L Imaging Data Radiologist's Impression: Radiology results as stated below per my review and the radiologist's interpretation: CT abd pelvis IV con only CT DOSE: 647.72 mGy.cm HISTORY: Obstruction poss obstruction TECHNIQUE: Multiaxial CT images of the abdomen and pelvis were performed following the use of intravenous contrast. A dose lowering technique was utilized adhering to the principles of ALARA. COMPARISON STUDY: 02/08/2019 FINDINGS: Unchanged calcifications right and to a lesser extent left base. Liver is uniform. Prior cholecystectomy. Moderate pancreatic atrophy. The kidneys are negative for hydronephrosis. Atherosclerotic change abdominal aorta as well as origins of the major vasculature appear similar. Moderate increase in colonic fecal load with no evidence for colonic distention. Fluid-filled small bowel distention. Change in caliber with within the central soft tissue pelvic region with no evidence for well-defined obstructing lesion. No significant abdominal pelvic or inguinal adenopathy. Findings of a stable ventral hernia repair procedure. IMPRESSION: 1. Findings consistent with distal small bowel obstruction. 2. Etiology is uncertain with no evidence for well-defined obstructing mass. 3. Increasing colonic fecal load consistent with colonic fecal stasis. ACT 112: Negative or not required by law. The above report was generated using voice recognition software. It may contain grammatical, syntax or spelling errors. Electronically signed by: Rojelio Sorto M.D. 06/23/2019 7:01 PM XR chest 1V portable CLINICAL HISTORY: fever,cough COMPARISON STUDY: Chest radiograph August 16, 2019 and May 05, 2019. FINDINGS: Mild right hemithorax following loss is chronic. A peripherally calcified focus within the right lower hemithorax is unchanged. Apparent right pleural thickening is due to extrapleural fat. The appearance of the chest is unchanged. There is no consolidation or evidence for pulmonary edema. Right rib deformities are incidentally noted IMPRESSION: No acute cardiopulmonary findings. No change in appearance of the chest. ACT 112: Negative or not required by law. Electronically signed by: Suraj Pope M.D. 06/23/2019 5:03 PM XR chest 1V portable CLINICAL HISTORY: ng tube placement COMPARISON STUDY: Same date FINDINGS: Nasogastric tube placed within the thoracic esophagus. The tube is coiled with the tip in the upper thoracic region. All remaining components of the study are unchanged. IMPRESSION: Nasogastric tube is coiled within the thoracic esophagus with the tip located in the upper thoracic esophagus. ACT 112: Negative or not required by law. The above report was generated using voice recognition software. It may contain grammatical, syntax or spelling errors. Electronically signed by: Rojelio Sorto M.D. 06/23/2019 8:25 PM ECG Data Attestation: I personally reviewed and interpreted this ECG as follows: Indication: + abdominal pain Rate (beats per minute): 71 Rhythm: + normal sinus ECG ST segments: no ST elevation ECG Findings: + Other (QT-c is 441); no PVCs Blood Pressure Blood Pressure Findings: Normal blood pressure Blood Pressure Disposition: further management by hospitalist [facility] Narrative There is a significant leukocytosis at 20,000, this could be consistent with infection or her vomiting. There was a very mild anemia noted. No coagulopathy . No significant electrolyte abnormality or kidney failure. No worrisome liver enzyme elevation. No evidence for pancreatitis. EKG showed a sinus rhythm, no acute ischemia. Cardiac enzyme testing x1 was not consistent with acute cardiac injury. Chest film did not show pneumonia or free air. Abdominal and pelvis CT shows a small bowel obstruction, no free air. On exam, the patient did not have peritonitis. She was not toxic, she was not febrile. The patient received IV saline for hydration. She received IV Zofran for nausea. She was given IV Pepcid. She was given IV Tylenol. She was ordered for an NG tube to low intermittent suction however, the tube could not be placed as it kept coiling in the esophagus. The patient finally refused any further NG tube placement attempts. I did speak with general surgery. The patient is not in need of emergent surgical intervention. Bowel rest, a medical admission was felt warranted. I spoke to the patient and her family, I spoke with case management. The on-call hospitalist was consulted. The patient is currently resting comfortably. Continuous Cardiac Monitoring: An order was placed for continuous cardiac monitoring. The monitor shows a rate of 71 with normal sinus rhythm. Impression & Plan SBO (small bowel obstruction), Leukocytosis, Left sided abdominal pain, Vomiting Discharge Plan Visit Data *Final* Discharge Date/Time: 06/23/19 21:23 Chief Complaint: Vomiting Stated Complaint: VOMITING GREEN - REF BY HOME NURSE ED Provider: Nolan Esteban Discharge Problem: SBO (small bowel obstruction), Leukocytosis, Left sided abdominal pain, Vomiting Patient Disposition: Admitted As Inpatient Discharge Instructions Interventions: ED Discharge Assessment Last Done: 06/23/19 21:23 Discharge Problem: Leukocytosis Qualifiers: Leukocytosis type: unspecified Qualified Code(s): D72.829 - Elevated white blood cell count, unspecified Vomiting Qualifiers: Vomiting type: unspecified Vomiting Intractability: non-intractable Nausea presence: with nausea Qualified Code(s): R11.2 - Nausea with vomiting, unspecified The scribe's documentation has been prepared under my direction and personally reviewed by me in its entirety. I confirm that the note above accurately reflects all work, treatment, procedures, and medical decision making performed by me.
[2019-06-24] MEDS ORDERED: XOPENEX/ATROVENT 1.25mg/0.5MG NEB COMBO NEB SCH (01:00)
[2019-06-24] MEDS: IPRATROPIUM BROMIDE NEB SOLN 0.02% 2.5 ML VIAL INH SCH ×4 (01:26→19:10)
[2019-06-24] MEDS: LEVALBUTEROL 1.25MG/0.5ML NEB INH SCH ×4 (01:26→19:10)
[2019-06-24 01:40] LABS: Appearance Urine Cloudy (Clear); Bilirubin Urine Negative (Negative); Blood Urine Negative (Negative); Color Urine Yellow; Glucose Urine UA Negative (Negative); Ketones Urine Negative (Negative); Leukocyte Esterase Urine Negative (Negative); Nitrite Urine Negative (Negative); Protein Urine Negative (Negative); Specific Gravity Urine <= 1.005 (1.000-1.030); Urobilinogen Urine Negative (Negative); pH Urine 8.5 (4.5-7.5)
[2019-06-24 01:46] LABS: Epithelial Cell Urine >30 /lpf (0-5)
[2019-06-24 01:47] LABS: Amorphous Sediment Urine Present (None Prsent)
[2019-06-24 01:48] LABS: Bacteria Urine Negative (Negative); RBC Urine 0-4 /hpf (0-4); WBC Urine 0-5 /hpf (0-5)
[2019-06-24 04:49] LABS: Basophils # (auto) 0.01 K/uL (0-0.2); Basophils % (auto) 0.1 %; Eosinophils # (auto) 0.08 K/uL (0-0.5); Eosinophils % (auto) 0.6 %; Hematocrit (blood only) 35.6 % (37-47); Hemoglobin 10.7 g/dL (12.0-16.0); Immature Granulocytes # (auto) 0.12 K/uL (0.00-0.02); Immature Granulocytes % (auto) 0.9 %; Lymphocytes # (auto) 1.85 K/uL (1.2-3.4); Lymphocytes % (auto) 13.8 %; Mean Corpuscular Hemoglobin 24.9 pg (25-34); Mean Corpuscular Hgb Conc 30.1 g/dL (32-36); Mean Corpuscular Volume 82.8 fL (80-100); Mean Platelet Volume 9.1 fL (7.4-10.4); Monocytes # (auto) 1.21 K/uL (0.11-0.59); Neutrophils # (auto) 10.12 K/uL (1.4-6.5); Neutrophils % (auto) 75.6 %; Platelet Count 246 K/uL (130-400); RDW Coefficient of Variation 16.5 % (11.5-14.5); RDW Standard Deviation 49.6 fL (36.4-46.3); White Blood Count 13.39 K/uL (4.8-10.8)
[2019-06-24 05:00] LABS: Partial Thromboplastin Time 25.9 Seconds (21.0-31.0)
[2019-06-24 05:06] LABS: BUN Creatinine Ratio 19.1 (10-20); Calcium 8.9 mg/dl (8.5-10.1); Creatinine Clr Calc Pharmacy 35.5 ml/min; Est GFR (African American) 50.6; Est GFR (Non-African American) 43.7; Potassium 3.7 mmol/L (3.5-5.1)
[2019-06-24] MEDS ORDERED: HEPARIN IV BOLUS 4,000 UNITS in SYRINGE 0 ML IV ONE (05:23)
[2019-06-24] MEDS ORDERED: DEXAMETHASONE SOD PHOSPHATE 4 MG in SYRINGE 0 ML IV STA (05:35)
[2019-06-24 06:23] LABS: Estimated Average Glucose 137 mg/dl; Hemoglobin A1C 6.4 % (4.5-5.6)
--- NOTE | 2019-06-24 06:58 | Surgery Consultation ---
Date of Consultation June 24, 2019 Assessment & Plan (1) SBO (small bowel obstruction): pt is a 83 year-old female who was admitted to hospital for SBO, IMP: SBO, I agree with conservative treatment first, IV fluid, NG tube, NPO, repeat labs in am, will F/U History of Present Illness Attending Physician: Leisa Krishna DO Chief Complaint: Abdominal pain Primary Care Provider: Mamadou Torre MD History obtained from patient, family, and records. 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 Recent confinement January 2019 for rapid AVR secondary to gastroenteritis. Patient seen at the ER last week with cough S OB symptoms. Discharge on Levaquin course for pneumonia. Symptoms resolved as per patient/family. Yesterday patient noted increased constipation followed by emesis followed by achy lower abdominal pain going to the back. No chest pain, no S OB, no fever, no chills. I (Chelle Brantley MD )reviewed pt's H/P labs, CT scan with pt, pt feels better, but pt is still vomiting overnight, the NG tube fall off last night, I insertion NG tube this morning, MEDICAL HISTORY: As above. History of confinement [facility] August 2015 for septic shock secondary to colonic pseudoobstruction status post sigmoidoscopic decompression and neostigmine administration. Neostigmine stopped due to concern for ischemic bowel at splenic flexure as per note. SURGERIES: Hysterectomy, cholecystectomy, lobectomy of the lung, cataract surgery, hernia repair. FAMILY HISTORY: Hypertension. Diabetes, COPD PERSONAL AND SOCIAL HISTORY: Nonsmoker, no ETOH employee, retired [employer] employee. Allergies Allergy/AdvReac Type Severity Reaction Status Date / Time Cipro Allergy Intermediate hives, Verified 04/25/17 06:31 itching ciprofloxacin Allergy Intermediate hives, Verified 06/23/19 16:54 itching amoxicillin Allergy Mild Itching Verified 06/23/19 16:54 clavulanic acid Allergy Mild Itching Verified 06/23/19 16:54 alendronate sodium AdvReac Intermediate feet and Verified 06/23/19 16:54 hand pain levofloxacin AdvReac Intermediate muscle pain Verified 06/23/19 16:54 Home Medications Home Medications Medication Instructions Recorded Confirmed Type Eliquis 2.5 mg PO BID 07/30/18 06/23/19 History albuterol sulfate [ProAir HFA] 2 puff INHALATION Q4H PRN 07/30/18 06/23/19 History budesonide 0.5 mg INHALATION BID 07/30/18 06/23/19 History cholecalciferol (vitamin D3) 5,000 unit PO QAM 07/30/18 06/23/19 History [Vitamin D3] diltiazem HCl 240 mg PO QAM 07/30/18 06/23/19 History docusate sodium [Colace] 100 mg PO BID 07/30/18 06/23/19 History doxycycline hyclate 100 mg PO BID PRN 07/30/18 06/23/19 History furosemide [Lasix] 20 mg PO DAILY PRN 07/30/18 06/23/19 History ipratropium-albuterol 3 ml INHALATION Q6H PRN 07/30/18 06/23/19 History metformin 1,000 mg PO BID 07/30/18 06/23/19 History metoprolol succinate [Toprol XL] 50 mg PO QAM 07/30/18 06/23/19 History polyethylene glycol 3350 [Miralax] 17 g PO QDL 07/30/18 06/23/19 History prednisone 10 mg PO QAM 07/30/18 06/23/19 History sennosides [Senokot] 8.6 mg PO QDL 07/30/18 06/23/19 History sertraline [Zoloft] 50 mg PO QAM 07/30/18 06/23/19 History tramadol 50 mg PO QAM 07/30/18 06/23/19 History montelukast [Singulair] 10 mg PO QAM 02/08/19 06/23/19 History acetaminophen [Tylenol Arthritis 650 mg PO HS PRN 05/05/19 06/23/19 History Pain] omeprazole 20 mg PO HS 05/05/19 06/23/19 History lactobacillus combination no.4 0 mmu cells PO HS 06/23/19 06/23/19 History [Probiotic] levofloxacin 750 mg PO DAILY 06/23/19 06/23/19 History nitrofurantoin monohyd/m-cryst 100 mg PO DAILY PRN 06/23/19 06/23/19 History ondansetron 4 mg PO Q8H PRN 06/23/19 06/23/19 History Past Med/Surg History Medical History Arthritis (Chronic) Bronchiectasis (Chronic) COPD, severe (Chronic) GERD (gastroesophageal reflux disease) (Chronic) HTN (hypertension) (Chronic) Hyperlipidemia (Chronic) "statin intolerance" Nocturnal hypoxemia (Chronic) Paroxysmal a-fib (Chronic) Pneumonia (Acute) Pulmonary hypertension (Chronic) SBO (small bowel obstruction) (Chronic) Shortness of breath Spinal stenosis (Chronic) Surgical History H/O hernia repair (Chronic) H/O: hysterectomy (Chronic) History of cataract surgery (Chronic) History of cholecystectomy (Chronic) 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" Family History Other Family history non-contributory Social History Preferred Language: Haitian Communication Ability: Effective 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 Beliefs That Will Affect Care: None marital status: Current Living Situation: Alone current occupational status: retired Feels Safe at Home: Yes Smoking Status: Never smoker Hx Alcohol Use: No Hx Substance Use: No Review of Systems Review of Systems: As per HPI, all 10 systems reviewed, all other ROS negative Allergies Allergy/AdvReac Type Severity Reaction Status Date / Time Cipro Allergy Intermediate hives, Verified 04/25/17 06:31 itching ciprofloxacin Allergy Intermediate hives, Verified 06/23/19 16:54 itching amoxicillin Allergy Mild Itching Verified 06/23/19 16:54 clavulanic acid Allergy Mild Itching Verified 06/23/19 16:54 alendronate sodium AdvReac Intermediate feet and Verified 06/23/19 16:54 hand pain levofloxacin AdvReac Intermediate muscle pain Verified 06/23/19 16:54 Home Medications Home Medications Medication Instructions Recorded Confirmed Type Eliquis 2.5 mg PO BID 07/30/18 06/23/19 History albuterol sulfate [ProAir HFA] 2 puff INHALATION Q4H PRN 07/30/18 06/23/19 History budesonide 0.5 mg INHALATION BID 07/30/18 06/23/19 History cholecalciferol (vitamin D3) 5,000 unit PO QAM 07/30/18 06/23/19 History [Vitamin D3] diltiazem HCl 240 mg PO QAM 07/30/18 06/23/19 History docusate sodium [Colace] 100 mg PO BID 07/30/18 06/23/19 History doxycycline hyclate 100 mg PO BID PRN 07/30/18 06/23/19 History furosemide [Lasix] 20 mg PO DAILY PRN 07/30/18 06/23/19 History ipratropium-albuterol 3 ml INHALATION Q6H PRN 07/30/18 06/23/19 History metformin 1,000 mg PO BID 07/30/18 06/23/19 History metoprolol succinate [Toprol XL] 50 mg PO QAM 07/30/18 06/23/19 History polyethylene glycol 3350 [Miralax] 17 g PO QDL 07/30/18 06/23/19 History prednisone 10 mg PO QAM 07/30/18 06/23/19 History sennosides [Senokot] 8.6 mg PO QDL 07/30/18 06/23/19 History sertraline [Zoloft] 50 mg PO QAM 07/30/18 06/23/19 History tramadol 50 mg PO QAM 07/30/18 06/23/19 History montelukast [Singulair] 10 mg PO QAM 02/08/19 06/23/19 History acetaminophen [Tylenol Arthritis 650 mg PO HS PRN 05/05/19 06/23/19 History Pain] omeprazole 20 mg PO HS 05/05/19 06/23/19 History lactobacillus combination no.4 0 mmu cells PO HS 06/23/19 06/23/19 History [Probiotic] levofloxacin 750 mg PO DAILY 06/23/19 06/23/19 History nitrofurantoin monohyd/m-cryst 100 mg PO DAILY PRN 06/23/19 06/23/19 History ondansetron 4 mg PO Q8H PRN 06/23/19 06/23/19 History Patient History Medical History Arthritis (Chronic) Bronchiectasis (Chronic) COPD, severe (Chronic) GERD (gastroesophageal reflux disease) (Chronic) HTN (hypertension) (Chronic) Hyperlipidemia (Chronic) "statin intolerance" Nocturnal hypoxemia (Chronic) Paroxysmal a-fib (Chronic) Pneumonia (Acute) Pulmonary hypertension (Chronic) SBO (small bowel obstruction) (Chronic) Shortness of breath Spinal stenosis (Chronic) Surgical History H/O hernia repair (Chronic) H/O: hysterectomy (Chronic) History of cataract surgery (Chronic) History of cholecystectomy (Chronic) 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" Family History Other Family history non-contributory Social History Preferred Language: Haitian Communication Ability: Effective 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 Beliefs That Will Affect Care: None marital status: Current Living Situation: Alone current occupational status: retired Feels Safe at Home: Yes Smoking Status: Never smoker Hx Alcohol Use: No Hx Substance Use: No Results & Data Vital Signs (Past 12 Hours) Vital Signs Temp Pulse Pulse Pulse Resp BP BP 06/24/19 04:47 75 06/24/19 04:34 37.1 C 122 H 20 102/56 L 06/24/19 03:29 72 06/24/19 01:26 68 20 06/24/19 00:00 72 136/76 06/23/19 22:23 70 06/23/19 22:09 37.1 C 84 20 06/23/19 21:27 68 24 06/23/19 20:51 74 24 BP Pulse Ox 06/24/19 04:47 97 06/24/19 04:34 83 L 06/24/19 03:29 97 06/24/19 01:26 95 06/24/19 00:00 06/23/19 22:23 06/23/19 22:09 109/64 93 06/23/19 21:27 109/60 94 06/23/19 20:51 92 Laboratory Results Abnormal lab results 06/23/19 06/23/19 06/23/19 Range/Units 17:23 17:23 17:23 WBC 20.30 H (4.8-10.8) K/uL Hgb 10.9 L (12.0-16.0) g/dL Hct 36.7 L (37-47) % MCH 24.9 L (25-34) pg MCHC 29.7 L (32-36) g/dL RDW Std Deviation 49.2 H (36.4-46.3) fL RDW Coeff of Shahriar 16.2 H (11.5-14.5) % Immature Gran # (Auto) 0.14 H (0.00-0.02) K/uL Neut # (Auto) 17.05 H (1.4-6.5) K/uL [place] # (Auto) 1.70 H (0.11-0.59) K/uL Sodium 135 L (136-145) mmol/L Chloride 92 L (98-107) mmol/L Carbon Dioxide 36 H (21-32) mmol/L BUN 23 H (7-18) mg/dl BUN/Creatinine Ratio 21.1 H (10-20) Glucose 107 H (70-99) mg/dl POC Glucose (70-99) mg/dl Hemoglobin A1c 6.4 H (4.5-5.6) % AST 13 L (15-37) U/L Alkaline Phosphatase 41 L (45-117) U/L Albumin 3.2 L (3.4-5.0) gm/dl Urine Appearance (Clear) Urine pH (4.5-7.5) Ur Epithelial Cells (0-5) /lpf Amorphous Sediment (None Prsent) 06/23/19 06/24/19 06/24/19 Range/Units 22:17 01:15 04:37 WBC 13.39 H (4.8-10.8) K/uL Hgb 10.7 L (12.0-16.0) g/dL Hct 35.6 L (37-47) % MCH 24.9 L (25-34) pg MCHC 30.1 L (32-36) g/dL RDW Std Deviation 49.6 H (36.4-46.3) fL RDW Coeff of Shahriar 16.5 H (11.5-14.5) % Immature Gran # (Auto) 0.12 H (0.00-0.02) K/uL Neut # (Auto) 10.12 H (1.4-6.5) K/uL [place] # (Auto) 1.21 H (0.11-0.59) K/uL Sodium (136-145) mmol/L Chloride (98-107) mmol/L Carbon Dioxide (21-32) mmol/L BUN (7-18) mg/dl BUN/Creatinine Ratio (10-20) Glucose (70-99) mg/dl POC Glucose 105 H (70-99) mg/dl Hemoglobin A1c (4.5-5.6) % AST (15-37) U/L Alkaline Phosphatase (45-117) U/L Albumin (3.4-5.0) gm/dl Urine Appearance Cloudy A (Clear) Urine pH 8.5 H (4.5-7.5) Ur Epithelial Cells >30 H (0-5) /lpf Amorphous Sediment Present A (None Prsent) 06/24/19 06/24/19 Range/Units 04:37 05:56 WBC (4.8-10.8) K/uL Hgb (12.0-16.0) g/dL Hct (37-47) % MCH (25-34) pg MCHC (32-36) g/dL RDW Std Deviation (36.4-46.3) fL RDW Coeff of Shahriar (11.5-14.5) % Immature Gran # (Auto) (0.00-0.02) K/uL Neut # (Auto) (1.4-6.5) K/uL [place] # (Auto) (0.11-0.59) K/uL Sodium 135 L (136-145) mmol/L Chloride 95 L (98-107) mmol/L Carbon Dioxide 34 H (21-32) mmol/L BUN 22 H (7-18) mg/dl BUN/Creatinine Ratio (10-20) Glucose 115 H (70-99) mg/dl POC Glucose 103 H (70-99) mg/dl Hemoglobin A1c (4.5-5.6) % AST (15-37) U/L Alkaline Phosphatase (45-117) U/L Albumin (3.4-5.0) gm/dl Urine Appearance (Clear) Urine pH (4.5-7.5) Ur Epithelial Cells (0-5) /lpf Amorphous Sediment (None Prsent) Diagnostic Findings CT abd pelvis IV con only CT DOSE: 647.72 mGy.cm HISTORY: Obstruction poss obstruction TECHNIQUE: Multiaxial CT images of the abdomen and pelvis were performed following the use of intravenous contrast. A dose lowering technique was utilized adhering to the principles of ALARA. COMPARISON STUDY: 02/08/2019 FINDINGS: Unchanged calcifications right and to a lesser extent left base. Liver is uniform. Prior cholecystectomy. Moderate pancreatic atrophy. The kidneys are negative for hydronephrosis. Atherosclerotic change abdominal aorta as well as origins of the major vasculature appear similar. Moderate increase in colonic fecal load with no evidence for colonic distention. Fluid-filled small bowel distention. Change in caliber with within the central soft tissue pelvic region with no evidence for well-defined obstructing lesion. No significant abdominal pelvic or inguinal adenopathy. Findings of a stable ventral hernia repair procedure. IMPRESSION: 1. Findings consistent with distal small bowel obstruction. 2. Etiology is uncertain with no evidence for well-defined obstructing mass. 3. Increasing colonic fecal load consistent with colonic fecal stasis.
[2019-06-24] MEDS: BUDESONIDE 0.5 MG/2 ML VIAL (PULMICORT) INH SCH ×2 (07:27→19:10)
[2019-06-24] MEDS ORDERED: predniSONE 10 MG TABLET PO SCH (09:00)
[2019-06-24] MEDS: METOPROLOL SUCC 50MG EXT REL TAB PO SCH (09:14)
[2019-06-24] MEDS: DOCUSATE SODIUM/SENNA 50/8.6MG TAB PO SCH ×2 (09:14→21:15)
[2019-06-24] MEDS: dilTIAZem HCL 240 MG CAPCR PO SCH (09:14)
[2019-06-24] MEDS: POLYETHYLENE (MIRALAX) 17 GM PACK PO SCH (09:15)
[2019-06-24] MEDS: INSULIN ASPART 100 UNITS/ML 3 ML PEN SC SCH ×5 (09:15→23:42)
[2019-06-24] MEDS: MONTELUKAST SODIUM 10 MG TABLET PO SCH (09:16)
[2019-06-24] MEDS: SERTRALINE HCL 50 MG TABLET PO SCH (09:16)
[2019-06-24 11:35] LABS: Partial Thromboplastin Ratio 2.7
[2019-06-24 11:45] LABS: Partial Thromboplastin Time 73.2 Seconds (21.0-31.0)
--- NOTE | 2019-06-24 13:23 | Hospitalist Progress Note ---
Date of Service June 24, 2019 Assessment & Plan (1) SBO (small bowel obstruction): NGT replaced this morning. Roughly 600mL+ out overnight. Cont conservative managment. Appreciate surgery management/recs. Eliquis held and patient placed on heparin drip in case of need for procedure which appears less imminent. (2) Leukocytosis: reaction from SBO, does not appear to have any infection. This is reduced. (3) Vomiting: Resolved after replacement of NGT this morning. Comt supportive care. Etiology SBO. (4) COPD (chronic obstructive pulmonary disease): chronic, stable. oxygen dependent, breathing at baseline and no wheezing on exam. Cont home medications and chronic supplemental oxygen. (5) Paroxysmal a-fib: Eliquis held as above. Normal rate and patient is in sinus rhythm overnight with HR in 70-80s on average. (6) Prediabetes: Hold metformin, ISS while hospitalized. Currently at goal. A1C in am (7) Anemia: chronic, at baseline. (8) DVT prophylaxis: Heparin drip Full Code Dispo-to home when tolerating solid foods reliably. Leisa Krishna DO [facility] Hospitalist Admission and Anticipated Discharge Date Admission Date: June 23, 2019 Anticipated date of discharge: 06/27/19 Subjective feels improved denies abdominal pain reports mouth is severely dry significant emesis >600 overnight NGT came out and was replaced by Dr. Brantley this am pt had a BM this afternoon Review of Systems Review of Systems: All systems reviewed & are unremarkable except as noted in Subjective Physical Exam Physical Exam: CONSTITUTIONAL: WNWD, vitals as above, generally well- appearing EYES: normal conjunctivae, no scleral icterus ENT: external ear and nose normal, MM dry, NGT in place RESPIRATORY: clear to auscultation bilaterally, no crackles, rales or wheezes, normal respiratory effort CARDIOVASCULAR: regular rate and rhythm, S1 and 2 heard without murmurs, gallops or rubs, no JVD, no peripheral edema GASTROINTESTINAL: normal bowel sounds, soft, LLQ abdominal tenderness, nondistended MUSCULOSKELETAL: strength 5/5 throughout, head is normocephalic and atraumatic SKIN: warm and dry NEUROLOGIC: CN 2-12 grossly intact, no sensory deficit, normal cognition, normal speech, no gross focal deficits. PSYCHIATRIC: alert cooperative and oriented to person, place and time. Results & Data ([facility]) Vital Signs (Past 12 Hours) Vital Signs Temp Pulse Pulse Pulse Resp BP Pulse Ox 06/24/19 12:35 36.9 C 69 18 107/60 06/24/19 08:13 36.9 C 76 20 129/64 97 06/24/19 07:29 68 18 98 06/24/19 07:00 71 06/24/19 04:47 75 97 06/24/19 04:34 37.1 C 122 H 20 102/56 L 83 L 06/24/19 03:29 72 97 06/24/19 01:26 68 20 95 Laboratory Results Short CBC 06/23/19 06/24/19 Range/Units 17:23 04:37 WBC 20.30 H 13.39 H (4.8-10.8) K/uL Hgb 10.9 L 10.7 L (12.0-16.0) g/dL Hct 36.7 L 35.6 L (37-47) % Plt Count 323 246 (130-400) K/uL BMP 06/23/19 06/24/19 17:23 04:37 Sodium 135 L 135 L Potassium 4.2 3.7 Chloride 92 L 95 L Carbon Dioxide 36 H 34 H BUN 23 H 22 H Creatinine 1.11 1.17 Glucose 107 H 115 H Calcium 9.5 8.9 Cardiac Enzymes 06/23/19 Range/Units 17:23 Troponin I < 0.015 (0-0.045) ng/ml Liver Function 06/23/19 Range/Units 17:23 Total Bilirubin 0.6 (0.2-1) mg/dl AST 13 L (15-37) U/L ALT 18 (12-78) U/L Alkaline Phosphatase 41 L (45-117) U/L Albumin 3.2 L (3.4-5.0) gm/dl Urine 06/24/19 Range/Units 01:15 Urine Color Yellow Urine Appearance Cloudy A (Clear) Urine pH 8.5 H (4.5-7.5) Ur Specific [place] <= 1.005 (1.000-1.030) Urine Protein Negative (Negative) Urine Glucose (UA) Negative (Negative) Medications Administered Current Inpatient Medications Budesonide (Pulmicort Respules) 0.5 mg INH BIDR JULIANNE Stop: 07/24/19 06:59 Last Admin: 06/24/19 07:27 Dose: 0.5 mg Documented by: Dextrose (Dextrose 50%) 25 - 50 ml IV UD PRN; Protocol PRN Reason: Hypoglycemia Protocol Stop: 07/23/19 21:54 Diltiazem HCl (Cardizem Cd) 240 mg PO QAM [facility] Stop: 07/24/19 08:59 Last Admin: 06/24/19 09:14 Dose: 240 mg Documented by: Glucagon (Glucagen) 1 mg SQ UD PRN; Protocol PRN Reason: Hypoglycemia Protocol Stop: 07/23/19 21:54 Glucose (Dex4 Glucose) 4 - 8 tabs PO UD PRN; Protocol PRN Reason: Hypoglycemia Protocol Stop: 07/23/19 21:54 Glucose (Glucose 40%) 15 - 30 gm PO UD PRN; Protocol PRN Reason: Hypoglycemia Protocol Stop: 07/23/19 21:54 Heparin Sodium/Dextrose (Heparin Sodium/Dextrose) 25,000 units in 500 mls @ 17 mls/hr IV .Q24H JULIANNE; Protocol Stop: 07/23/19 20:14 Last Titration: 06/24/19 11:53 Dose: 850 units/hr, 17 mls/hr Documented by: Sodium Chloride (Nss 1000ml) 1,000 mls @ 60 mls/hr IV .[id number] [facility] Stop: 07/23/19 21:54 Last Infusion: 06/24/19 05:50 Dose: 60 mls/hr Documented by: Promethazine HCl 12.5 mg/ (Sodium Chloride) 50.5 mls @ 202 mls/hr IV Q6H PRN PRN Reason: Nausea And Vomiting Stop: 07/23/19 21:54 Last Infusion: 06/24/19 01:55 Dose: Infused Documented by: Insulin Aspart (Novolog Flexpen) 0 units SC ACHS [facility] Stop: 07/23/19 21:54 Last Admin: 06/24/19 12:13 Dose: Not Given Documented by: Ipratropium [place] (Atrovent 0.02% 0.5mg/2.5ml) 0.5 mg INH Q6R [facility] Stop: 07/24/19 00:59 Last Admin: 06/24/19 07:27 Dose: 0.5 mg Documented by: Lactobacillus Acidophilus (Floranex) 4 tab PO HS [facility] Stop: 07/23/19 22:29 Last Admin: 06/23/19 22:40 Dose: 4 tab Documented by: Levalbuterol HCl (Xopenex 1.25mg/0.5ml Neb) 1.25 mg INH Q6R [facility] Stop: 07/24/19 00:59 Last Admin: 06/24/19 07:27 Dose: 1.25 mg Documented by: Metoprolol Succinate (Toprol Xl) [facility] Stop: 07/24/19 08:59 Last Admin: 06/24/19 09:14 Dose: 50 mg Documented by: Miscellaneous (Carbohydrates For Hypoglycemia) 15 - 30 gm PO UD PRN PRN Reason: Hypoglycemia Protocol Stop: 07/23/19 21:54 Montelukast Sodium (Singulair) 10 mg PO [facility] Stop: 07/24/19 08:59 Last Admin: 06/24/19 09:16 Dose: 10 mg Documented by: Morphine Sulfate (Morphine Sulfate) 2 mg IV Q4H PRN PRN Reason: Pain Stop: 07/07/19 21:54 Pantoprazole Sodium (Protonix) 40 mg PO HS [facility] Stop: 07/23/19 22:29 Last Admin: 06/23/19 22:39 Dose: 40 mg Documented by: Polyethylene Glycol (Miralax Powder Packet) 17 gm PO DAILY [facility] Stop: 07/24/19 08:59 Last Admin: 06/24/19 09:15 Dose: Not Given Documented by: Prednisone (Prednisone) 10 mg PO [facility] Stop: 07/25/19 08:59 Senna/Docusate Sodium (Senokot S) 1 tab PO BID [facility] Stop: 07/23/19 21:54 Last Admin: 06/24/19 09:14 Dose: 1 tab Documented by: Sertraline HCl (Zoloft) 50 mg PO [facility] Stop: 07/24/19 08:59 Last Admin: 06/24/19 09:16 Dose: 50 mg Documented by: (1) Leukocytosis Leukocytosis type: unspecified Qualified Code(s): D72.829 - Elevated white blood cell count, unspecified (2) Vomiting Nausea presence: with nausea Vomiting Intractability: non-intractable Vomiting type: unspecified Qualified Code(s): R11.2 - Nausea with vomiting, unspecified
--- NOTE | 2019-06-24 15:50 | Electrocardiogram Report ---
Test Reason : Blood Pressure : / mmHG Vent. Rate : 071 BPM Atrial Rate : 071 BPM P-R Int : 146 ms QRS Dur : 086 ms QT Int : 406 ms P-R-T Axes : 000 001 085 degrees QTc Int : 441 ms Normal sinus rhythm Nonspecific ST and T wave abnormality Abnormal ECG When compared with ECG of 17-JUN-2019 21:05, Nonspecific T wave abnormality has replaced inverted T waves in Lateral leads Confirmed by Korey Henriquez ([id number]) on 06/24/2019 3:49:36 PM Referred By: REFERRED SELF Confirmed By:Korey Henriquez
[2019-06-24] MEDS: SODIUM CHLORIDE 0.9% 1000ML 1,000 ML IV SCH (16:32)
[2019-06-24 18:24] LABS: Partial Thromboplastin Time 55.1 Seconds (21.0-31.0)
[2019-06-24] MEDS ORDERED: Nursing to Pharmacy Communication ONE (21:02)
[2019-06-24] MEDS: LACTOBACILLUS ACIDOPHILUS (FLORANEX) TAB PO SCH (21:14)
[2019-06-24] MEDS: PANTOprazole 40 MG TAB PO SCH (21:15)
[2019-06-25] MEDS: IPRATROPIUM BROMIDE NEB SOLN 0.02% 2.5 ML VIAL INH SCH ×3 (00:13→13:29)
[2019-06-25] MEDS: LEVALBUTEROL 1.25MG/0.5ML NEB INH SCH ×3 (00:15→13:29)
[2019-06-25] MEDS: INSULIN ASPART 100 UNITS/ML 3 ML PEN SC SCH ×4 (05:49→21:54)
[2019-06-25 06:28] LABS: Hematocrit (blood only) 32.9 % (37-47); Hemoglobin 9.8 g/dL (12.0-16.0); Mean Corpuscular Hemoglobin 25.1 pg (25-34); Mean Corpuscular Hgb Conc 29.8 g/dL (32-36); Mean Corpuscular Volume 84.1 fL (80-100); Mean Platelet Volume 9.1 fL (7.4-10.4); Platelet Count 226 K/uL (130-400); RDW Coefficient of Variation 16.6 % (11.5-14.5); RDW Standard Deviation 50.7 fL (36.4-46.3); Red Blood Count 3.91 M/uL (4.2-5.4); White Blood Count 11.79 K/uL (4.8-10.8)
[2019-06-25 06:52] LABS: Partial Thromboplastin Ratio 1.1; Partial Thromboplastin Time 28.9 Seconds (21.0-31.0)
[2019-06-25 06:58] LABS: BUN Creatinine Ratio 19.9 (10-20); Calcium 8.3 mg/dl (8.5-10.1); Creatinine Clr Calc Pharmacy 49.9 ml/min; Est GFR (African American) 76.6; Est GFR (Non-African American) 66.1; Potassium 3.9 mmol/L (3.5-5.1)
[2019-06-25] MEDS: BUDESONIDE 0.5 MG/2 ML VIAL (PULMICORT) INH SCH ×2 (07:17→19:06)
--- NOTE | 2019-06-25 07:21 | CT Scan Report ---
CT SCAN OF THE BRAIN WITHOUT IV CONTRAST CLINICAL HISTORY: Fall. COMPARISON STUDY: CT of the brain dated 04/02/2016. TECHNIQUE: Unenhanced axial CT scan of the brain is performed from the vertex to the skull base. A do se lowering technique was utilized adhering to the principles of ALARA. CT DOSE: 614.27 mGy.cm FINDINGS: Brain parenchyma: There are age-related involutional changes noting moderate subcortical and periven tricular microangiopathic change. There is no hemorrhage, mass effect, or evidence of acute territori al ischemia by CT criteria. Adam-white matter differentiation is preserved. No extra-axial fluid marni ection is seen. Ventricles, sulci, cisterns: Prominent secondary to involutional change. Intracranial vasculature: There is atherosclerotic calcification of the cavernous carotid and vertebr al arteries. Calvarium: The skeletal structures are osteopenic. No depressed calvarial fracture is identified. Soft tissues: There is a small right frontal scalp contusion/laceration. Sinuses and mastoids: The visualized paranasal sinuses are clear. The mastoid air cells are well pneu matized. Orbits: The bony orbits are grossly intact. There are bilateral ocular lens implants. IMPRESSION: There is no hemorrhage, mass effect, or evidence of acute territorial ischemia by CT fredot queta. ACT 112: Negative or not required by law. Electronically signed by: Nolan Rudolph M.D. 06/25/2019 7:19 AM
[2019-06-25] MEDS: SODIUM CHLORIDE 0.9% 1000ML 1,000 ML IV SCH (08:34)
[2019-06-25] MEDS ORDERED: Nursing to Pharmacy Communication ONE (08:51)
--- NOTE | 2019-06-25 09:04 | Surgery Progress Note ---
Date of Service June 25, 2019 Assessment & Plan (1) SBO (small bowel obstruction): Resolving + bowel function NGT fell out last night afebrile, vitals stable Plan: Okay to advance to clear diabetic liquids, advised patient to take slowly bacitracin and 2x2 gauze to laceration above right eyebrow continue current medical management will follow Dr. Brantley was present during my examination and agrees with above. Subjective patient states she had a fall last night trying to get to bathroom. Fell right on her face. Right eye bruised and small laceration with steri strips applied with some bloody drainage. NGT fell out last night no further abdominal pain, nausea or vomiting passing flatus and had large formed bowel movement last night does not feel distended slightly hungry Physical Exam Constitutional: WD/WN, vitals as above no acute distress Eyes: There is bruising surrounding right eye with some edema and small laceration above eyebrow with steri strips applied. Some mild bleeding at steri strips. Respiratory: normal respiratory effort; no respiratory distress Gastrointestinal (Abdomen): Inspection/Auscultation: normal bowel sounds (hypoactive but present); abdomen not distended Percussion/Palpation: abdomen soft; abdomen nontender, no guarding and abdomen not rigid lower abdominal wall bulge but no palpable hernia defect . History of complex hernia repair with mesh. Likely has loss of abdominal domain. Skin: no rashes, warm and dry Psychiatric: A+Ox3, euthymic affect Results & Data Vital Signs (Past 12 Hours) Vital Signs Temp Pulse Resp BP BP Pulse Ox 06/25/19 07:17 94 H 18 91 06/25/19 07:07 37.0 C 112 H 16 105/64 94 06/25/19 04:14 97 H 110/67 98 06/25/19 03:03 36.6 C 108 H 20 175/74 H 95 06/25/19 00:15 59 L 16 98 06/24/19 23:30 37 C 101 H 20 113/69 97 Laboratory Results 06/25/19 06/25/19 06/25/19 Range/Units 06:14 06:14 06:14 WBC 11.79 H (4.8-10.8) K/uL RBC 3.91 L (4.2-5.4) M/uL Hgb 9.8 L (12.0-16.0) g/dL Hct 32.9 L (37-47) % MCV 84.1 (80-100) fL MCH 25.1 (25-34) pg MCHC 29.8 L (32-36) g/dL RDW Std Deviation 50.7 H (36.4-46.3) fL RDW Coeff of Shahriar 16.6 H (11.5-14.5) % Plt Count 226 (130-400) K/uL MPV 9.1 (7.4-10.4) fL APTT 28.9 (21.0-31.0) Seconds PTT Ratio 1.1 Sodium 140 (136-145) mmol/L Potassium 3.9 (3.5-5.1) mmol/L Chloride 104 (98-107) mmol/L Carbon Dioxide 30 (21-32) mmol/L Anion Gap 6.0 (3-11) BUN 17 (7-18) mg/dl Creatinine 0.83 D (0.6-1.2) mg/dl Est Cr Clr Drug Dosing 49.9 ml/min Est GFR ( Amer) 76.6 Est GFR (Non-Af Amer) 66.1 BUN/Creatinine Ratio 19.9 (10-20) Glucose 104 H (70-99) mg/dl POC Glucose (70-99) mg/dl Calcium 8.3 L (8.5-10.1) mg/dl 06/25/19 06/24/19 06/24/19 Range/Units 05:37 23:37 18:00 WBC (4.8-10.8) K/uL RBC (4.2-5.4) M/uL Hgb (12.0-16.0) g/dL Hct (37-47) % MCV (80-100) fL MCH (25-34) pg MCHC (32-36) g/dL RDW Std Deviation (36.4-46.3) fL RDW Coeff of Shahriar (11.5-14.5) % Plt Count (130-400) K/uL MPV (7.4-10.4) fL APTT (21.0-31.0) Seconds PTT Ratio Sodium (136-145) mmol/L Potassium (3.5-5.1) mmol/L Chloride (98-107) mmol/L Carbon Dioxide (21-32) mmol/L Anion Gap (3-11) BUN (7-18) mg/dl Creatinine (0.6-1.2) mg/dl Est Cr Clr Drug Dosing ml/min Est GFR ( Amer) Est GFR (Non-Af Amer) BUN/Creatinine Ratio (10-20) Glucose (70-99) mg/dl POC Glucose 106 H 111 H 97 (70-99) mg/dl Calcium (8.5-10.1) mg/dl 06/24/19 06/24/19 06/24/19 Range/Units 17:53 11:35 10:59 WBC (4.8-10.8) K/uL RBC (4.2-5.4) M/uL Hgb (12.0-16.0) g/dL Hct (37-47) % MCV (80-100) fL MCH (25-34) pg MCHC (32-36) g/dL RDW Std Deviation (36.4-46.3) fL RDW Coeff of Shahriar (11.5-14.5) % Plt Count (130-400) K/uL MPV (7.4-10.4) fL APTT 55.1 H* 73.2 H* (21.0-31.0) Seconds PTT Ratio 2.0 2.7 Sodium (136-145) mmol/L Potassium (3.5-5.1) mmol/L Chloride (98-107) mmol/L Carbon Dioxide (21-32) mmol/L Anion Gap (3-11) BUN (7-18) mg/dl Creatinine (0.6-1.2) mg/dl Est Cr Clr Drug Dosing ml/min Est GFR ( Amer) Est GFR (Non-Af Amer) BUN/Creatinine Ratio (-20) Glucose (70-99) mg/dl POC Glucose 169 H (70-99) mg/dl Calcium (8.5-10.1) mg/dl
[2019-06-25] MEDS: DOCUSATE SODIUM/SENNA 50/8.6MG TAB PO SCH ×2 (10:01→21:36)
[2019-06-25] MEDS: predniSONE 10 MG TABLET PO SCH (10:01)
[2019-06-25] MEDS: POLYETHYLENE (MIRALAX) 17 GM PACK PO SCH (10:01)
[2019-06-25] MEDS: SERTRALINE HCL 50 MG TABLET PO SCH (10:01)
[2019-06-25] MEDS: METOPROLOL SUCC 50MG EXT REL TAB PO SCH (10:02)
[2019-06-25] MEDS: MONTELUKAST SODIUM 10 MG TABLET PO SCH (10:02)
[2019-06-25] MEDS: BACITRACIN OINT 15 GM TUBE EXT SCH (10:02)
[2019-06-25] MEDS: dilTIAZem HCL 240 MG CAPCR PO SCH (10:02)
[2019-06-25] MEDS ORDERED: IPRATROPIUM BROMIDE NEB SOLN 0.02% 2.5 ML VIAL INH PRN (13:28)
[2019-06-25] MEDS ORDERED: LEVALBUTEROL 1.25MG/0.5ML NEB INH PRN (13:28)
--- NOTE | 2019-06-25 17:53 | Surgery Progress Note ---
Date of Service pt fall last night, small opening on right head, size about 1.5cm, deep 1-2 mm, no active bleeding, pt denies any change on visions. no headache. she tolerated clear diet. passed BM today, no nausea, no vomiting, June 25, 2019 Assessment & Plan (1) SBO (small bowel obstruction): Resolving + bowel function NGT fell out last night afebrile, vitals stable Plan: Okay to advance to clear diabetic liquids, advised patient to take slowly bacitracin and 2x2 gauze to laceration above right eyebrow continue current medical management will follow Dr. Brantley was present during my examination and agrees with above. I ( Chelle Brantley MD ) apply strip on wound of right head, and bacitricine, cover 2x2 . will F/U Subjective feels improved denies abdominal pain reports mouth is severely dry significant emesis >600 overnight NGT came out and was replaced by Dr. Brantley this am pt had a BM this afternoon Physical Exam Constitutional: WD/WN, vitals as above well developed and well nourished Eyes: PERRL, conjunctivae normal, anicteric sclerae some blue color on right eye, ENMT: external ear and nose normal, oropharynx normal small skin opening on right head, size 1.5cm, deep 1-2 mm, no active bleeding, no infection signs. Neck: trachea midline, no thyromegaly Respiratory: normal respiratory effort, lungs clear to auscultation normal respiratory effort Cardiovascular: RRR, no murmur, no edema Chest (Breasts): normal inspection/palpation of breasts Gastrointestinal (Abdomen): normal bowel sounds, soft, nontender, no hepatosplenomegaly Percussion/Palpation: abdomen soft Musculoskeletal: no cyanosis or clubbing, extremities motor strength 5/5 Skin: no rashes, warm and dry Neurologic: awake Psychiatric: Orientation: alert and oriented x 3 Results & Data Vital Signs (Past 12 Hours) Vital Signs Temp Pulse Resp BP Pulse Ox 06/25/19 15:04 37.0 C 104 H 16 115/72 94 06/25/19 07:17 94 H 18 91 06/25/19 07:07 37.0 C 112 H 16 105/[address] SCAN OF THE BRAIN WITHOUT IV CONTRAST CLINICAL HISTORY: Fall. COMPARISON STUDY: CT of the brain dated 04/02/2016. TECHNIQUE: Unenhanced axial CT scan of the brain is performed from the vertex to the skull base. A dose lowering technique was utilized adhering to the principles of ALARA. CT DOSE: 614.27 mGy.cm FINDINGS: Brain parenchyma: There are age-related involutional changes noting moderate subcortical and periventricular microangiopathic change. There is no hemorrhage, mass effect, or evidence of acute territorial ischemia by CT criteria. Adam- white matter differentiation is preserved. No extra-axial fluid collection is seen. Ventricles, sulci, cisterns: Prominent secondary to involutional change. Intracranial vasculature: There is atherosclerotic calcification of the cavernous carotid and vertebral arteries. Calvarium: The skeletal structures are osteopenic. No depressed calvarial fracture is identified. Soft tissues: There is a small right frontal scalp contusion/laceration. Sinuses and mastoids: The visualized paranasal sinuses are clear. The mastoid air cells are well pneumatized. Orbits: The bony orbits are grossly intact. There are bilateral ocular lens implants. IMPRESSION: There is no hemorrhage, mass effect, or evidence of acute territorial ischemia by CT criteria.
[2019-06-25] MEDS: PANTOprazole 40 MG TAB PO SCH (21:36)
[2019-06-25] MEDS: LACTOBACILLUS ACIDOPHILUS (FLORANEX) TAB PO SCH (21:36)
[2019-06-26] MEDS ORDERED: ACETAMINOPHEN 325 MG TAB PO PRN (00:20)
[2019-06-26] MEDS: HEPARIN SODIUM/DEXTROSE 25,000 UNITS/500 ML BAG IV SCH (00:37)
[2019-06-26] MEDS: BUDESONIDE 0.5 MG/2 ML VIAL (PULMICORT) INH SCH (07:31)
[2019-06-26] MEDS: predniSONE 10 MG TABLET PO SCH (08:55)
[2019-06-26] MEDS: dilTIAZem HCL 240 MG CAPCR PO SCH (08:55)
[2019-06-26] MEDS: SERTRALINE HCL 50 MG TABLET PO SCH (08:56)
[2019-06-26] MEDS: MONTELUKAST SODIUM 10 MG TABLET PO SCH (08:56)
[2019-06-26] MEDS: METOPROLOL SUCC 50MG EXT REL TAB PO SCH (08:57)
[2019-06-26] MEDS: INSULIN ASPART 100 UNITS/ML 3 ML PEN SC SCH ×2 (09:28→13:37)
--- NOTE | 2019-06-26 10:59 | Hospitalist Progress Note ---
Date of Service June 25, 2019 (backdated to reflect encounter this day) Assessment & Plan (1) SBO (small bowel obstruction): Tolerating clears and having BMs. Advance diet slowly. (2) Vomiting: resolved. (3) COPD (chronic obstructive pulmonary disease): chronic, stable. oxygen dependent, breathing at baseline and no wheezing on exam. Cont home medications and chronic supplemental oxygen. (4) Paroxysmal a-fib: Eliquis held since admission and now heparin held with head trauma overnight. Normal rate and patient is in sinus rhythm overnight with HR in 70- 80s on average. (5) Fall: Mechanical Fall overnight with subsequent head trauma. Heparin held. Although anisocoria noted on exam there are no gross focal neurologic deficits and she is completely asymptomatic. Cont to monitor status for now, consider repeating CT head prior to restarting anticoagulation. (6) Prediabetes: Hold metformin, ISS while hospitalized. Currently at goal. (7) Anemia: chronic, at baseline. (8) DVT prophylaxis: Heparin drip on hold. SCDs. Full Code Dispo-to home when tolerating solid foods reliably. Leisa Krishna DO [facility] Hospitalist Admission and Anticipated Discharge Date Admission Date: June 23, 2019 Anticipated date of discharge: 06/27/19 Subjective pt feeling well tolerating clears without issue NGT out just this morning +BMs denies abdominal pain fall and hit head overnight heparin held and wound addressed with steri strips anisocoria noted, however, uncertain if this was present previously. she denies any neurologic issues, also denying headache or visual changes Review of Systems Review of Systems: All systems reviewed & are unremarkable except as noted in Subjective Physical Exam Physical Exam: CONSTITUTIONAL: WNWD, vitals as above, generally well- appearing EYES: some appearance of subconjunctival hemorrhage, clear trauma to head with lac that is closed with steri-strips and gauze over the right eye, periorbital ecchymosis of the right eye is present. Anisocoria noted with reactive pupils to light, smaller pupil on right, larger on left and no change with the light off or on. No scleral icterus ENT: external ear and nose normal, MMM RESPIRATORY: clear to auscultation bilaterally, no crackles, rales or wheezes, normal respiratory effort CARDIOVASCULAR: regular rate and rhythm, S1 and 2 heard without murmurs, gallops or rubs, no JVD, no peripheral edema GASTROINTESTINAL: normal bowel sounds, soft, some persistent LLQ abdominal tenderness which she states is a chronic issue, nondistended MUSCULOSKELETAL: strength 5/5 throughout, head is normocephalic and atraumatic SKIN: warm and dry NEUROLOGIC: CN 2-12 grossly intact, no sensory deficit, normal cognition, normal speech, no gross focal deficits. PSYCHIATRIC: alert cooperative and oriented to person, place and time. Results & Data ([facility]) Vital Signs (Past 12 Hours) Vital Signs Temp Pulse Resp BP Pulse Ox 06/26/19 07:31 82 18 95 06/26/19 07:26 36.5 C 64 18 103/53 L 96 06/25/19 23:44 37.0 C 71 18 113/59 L 92 (1) Vomiting Nausea presence: with nausea Vomiting Intractability: non-intractable Vomiting type: unspecified Qualified Code(s): R11.2 - Nausea with vomiting, unspecified
--- NOTE | 2019-06-26 11:09 | Surgery Progress Note ---
Date of Service June 26, 2019 Assessment & Plan (1) SBO (small bowel obstruction): Resolving + bowel function afebrile, vitals stable Plan: Okay to advance diet as tolerated No surgical intervention required continue bowel regimen steri strips , bacitracin, and 2x2 gauze to laceration above right eyebrow continue current medical management Surgical services signing off Dr. Brantley has seen patient, agrees with above. Subjective feeling better today wants something more to eat no abdominal pain, n/v passing flatus Physical Exam Constitutional: WD/WN, vitals as above no acute distress Respiratory: normal respiratory effort; no respiratory distress Gastrointestinal (Abdomen): Inspection/Auscultation: abdomen normal to inspection; abdomen not distended Percussion/Palpation: abdomen soft; abdomen nontender, no guarding and abdomen not rigid Skin: no rashes, warm and dry Psychiatric: A+Ox3, euthymic affect Results & Data Vital Signs (Past 12 Hours) Vital Signs Temp Pulse Resp BP Pulse Ox 06/26/19 07:31 82 18 95 06/26/19 07:26 36.5 C 64 18 103/53 L 96 06/25/19 23:44 37.0 C 71 18 113/59 L 92 Laboratory Results 06/26/19 06/25/19 06/25/19 Range/Units 08:14 20:29 17:23 POC Glucose 97 97 118 H (70-99) mg/dl 06/25/19 Range/Units 12:09 POC Glucose 124 H (70-99) mg/dl
--- NOTE | 2019-06-26 14:05 | CT Scan Report ---
CT OF THE HEAD WITHOUT CONTRAST CLINICAL HISTORY: anisocoria after head trauma, on blood thinners COMPARISON STUDY: Head CT June 25, 2019 and April 02, 2016. CT DOSE: 502.61 mGycm TECHNIQUE: Helical axial images of the head were obtained without IV contrast. Automated exposure con trol was utilized for the study. A dose lowering technique was utilized adhering to the principles o f ALARA. FINDINGS: No acute intracranial hemorrhage, midline shift or mass effect is present. The ventricular system is unremarkable. The basilar cisterns are patent. No extra-axial collections are present. Ther e are no findings to suggest acute dural sinus thrombosis or acute territorial infarct. No significan t calvarial abnormalities are present. Visualized portions of the sinuses and mastoid air cells are c lear. White matter hypodensity suggests small vessel disease. These are unchanged. IMPRESSION: No acute intracranial findings. ACT 112: Negative or not required by law. Electronically signed by: Suraj Pope M.D. 06/26/2019 2:03 PM
[2019-06-26] MEDS: DOCUSATE SODIUM/SENNA 50/8.6MG TAB PO SCH (14:06)
[2019-06-26] MEDS: POLYETHYLENE (MIRALAX) 17 GM PACK PO SCH (14:08)
[2019-06-26] MEDS: BACITRACIN OINT 15 GM TUBE EXT SCH (14:08)
--- NOTE | 2019-06-26 15:38 | Discharge Summary ---
Date of Service June 26, 2019 Admission HPI Per Admitting Provider History obtained from patient, family, and records. 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 Recent confinement January 2019 for rapid AVR secondary to gastroenteritis. Patient seen at the ER last week with cough S OB symptoms. Discharge on Levaquin course for pneumonia. Symptoms resolved as per patient/family. Yesterday patient noted increased constipation followed by emesis followed by achy lower abdominal pain going to the back. No chest pain, no S OB, no fever, no chills. At the ER, NGT inserted for bowel obstruction. MEDICAL HISTORY: As above. History of confinement [facility] August 2015 for septic shock secondary to colonic pseudoobstruction status post sigmoidoscopic decompression and neostigmine administration. Neostigmine stopped due to concern for ischemic bowel at splenic flexure as per note. SURGERIES: Hysterectomy, cholecystectomy, lobectomy of the lung, cataract surgery, hernia repair. FAMILY HISTORY: Hypertension. Diabetes, COPD PERSONAL AND SOCIAL HISTORY: Nonsmoker, no ETOH employee, retired [employer] employee. Admission Exam Per Admitting Provider GENERAL: uncomfortable, no respiratory distress SKIN: Pallor , warm HEENT: Pale palpebral conjunctivae, no ptosis, dry buccal mucosa, NGT in place NECK : Supple, no tenderness CHEST : Decreased breath sounds , no tenderness HEART : RRR, no obvious murmurs ABDOMEN: Some distention, minimal hypogastric tenderness EXTREMITIES : No LE swelling/tenderness, chronic venous stasis upper and lower extremities, dressing over left lower extremity, no other conspicuous deformities noted NEUROLOGIC : Coherent, no facial asymmetry, no other gross focality Principal Diagnosis SBO Fall with head laceration Discharge Data Allergies Allergy/AdvReac Type Severity Reaction Status Date / Time Cipro Allergy Intermediate hives, Verified 04/25/17 06:31 itching ciprofloxacin Allergy Intermediate hives, Verified 06/23/19 16:54 itching amoxicillin Allergy Mild Itching Verified 06/23/19 16:54 clavulanic acid Allergy Mild Itching Verified 06/23/19 16:54 alendronate sodium AdvReac Intermediate feet and Verified 06/23/19 16:54 hand pain levofloxacin AdvReac Intermediate muscle pain Verified 06/23/19 16:54 Consultations 06/23/19 19:35 ED Decision to Admit Stat 06/23/19 21:55 Consult General Surgery Routine Ordered Studies 06/23/19 16:48 CT abd pelvis IV con only Stat 06/25/19 03:08 CT head/brain wo con Urgent 06/26/19 12:09 CT head/brain wo con Routine Hospital Course (1) SBO (small bowel obstruction): (2) Paroxysmal a-fib: (3) Fall: 83-year-old female was admitted to the Hospitalist service with a small bowel obstruction. An nasogastric tube was placed in the ER. Eliquis was held and heparin was initiated in case as needed for procedure. General surgery was consulted and recommended conservative treatment including bowel rest, IV fluids and NG tube. Her NG tube came out overnight and was replaced the following morning. During the time the tube was out she was persistently vomiting overnight. She continued to do well for another day and the NG tube came out again after 24 hours. This time she was able to advance to clear liquid diet. Her diet was slowly advanced over the next day and she continued to tolerate p.o. and have bowel movements. During her hospital stay she did trip and fall in the middle the night suffering a blow to the head with a small laceration over the right eyebrow. Heparin was held and no blood thinners were restarted. On exam the following day anisocoria was noted on her exam however there were no other focal neurologic deficits and she was completely asymptomatic. This was monitored for another day and she persistently had anisocoria which potentially was a chronic finding. She remained asymptomatic without any deterioration clinically. A repeat CT of the head was performed prior to discharge revealing no acute intracranial findings. With her laceration and periorbital ecchymosis on exam, blood thinners were not restarted at discharge. Primary care follow-up in 1 to 2 weeks was recommended with Eliquis being reinitiated by the primary care doctor after examination. At time of discharge she was hemodynamically stable and afebrile and tolerating p.o. She was mentating and ambulating at baseline and oxygenating well on room air. She was discharged in stable condition with close primary care follow-up recommended. Total Time Total Time Spent Total Time Spent (In Minutes): 60 Total Time Includes: Examination of the Patient, Discharge Planning, Medication Reconciliation and Communication With Other Providers Discharge Plan Discharge Items Patient Disposition: Home - Home Health Services Reason For Visit: SBO,HX PAF,POT NEED FOR IV CHRONOTROPIC MEDS Discharge Diagnosis: SBO Fall with head laceration Condition on Discharge: Good Activity: Resume your previous activity Non-emergency contact: Primary Care Provider Call non-emergency contact if: you have any medication questions, your symptoms worsen, your pain is not controlled, your pain is worsening, your pain is unusual for you, your pain is concerning for you and you have a fever Follow-up/Referrals: Mamadou Torre MD [Primary Care Provider] - 07/02/19 8:00 am ([facility], [facility]) Diet: Carb Consistent or DM2 Addtl Attending Provider Instructions: Please take all medications as instructed on discharge list below. For now, it is recommended to hold on taking your Eliquis until you are seen by your primary care provider. Your second CT scan of the head was clear of any intracranial abnormality, however, this will give the bruising around your eye an opportunity to heal. Eliquis will need to be restarted in 1-2 weeks so long as your primary care physician is fine with this based on your healing. It is recommended that you follow-up with your primary care physician within one week to ensure you are still doing well after going home, to recheck your head wound, and to restart your Eliquis again after evaluating your head wound. It was a pleasure taking care of you! Please call if you have any questions or problems. You can reach a [facility] hospitalist on duty at [facility] 24 hours a day by calling [phone]. Take care of yourself. Leisa Krishna, [facility] Hospitalist Pending Studies at Discharge: No Stand-Alone Forms: My [facility], Smoking Cessation Medications and DC Order Prescriptions: Continued montelukast [Singulair] 10 mg Tablet 10 mg PO QAM RF: 0 ondansetron 4 mg tablet,disintegrating 4 mg PO Q8H PRN (Reason: Nausea And Vomiting) RF: 0 nitrofurantoin monohyd/m-cryst 100 mg capsule 100 mg PO DAILY PRN (Reason: Frequent UTI's) RF: 0 Probiotic 3 billion cell Capsule 0 mmu cells PO HS RF: 0 sennosides [Senokot] 8.6 mg Tablet 8.6 mg PO QDL RF: 0 prednisone 10 mg Tablet 10 mg PO QAM RF: 0 doxycycline hyclate 100 mg Capsule 100 mg PO BID PRN (Reason: COPD Rescue Kit) RF: 0 ipratropium-albuterol 0.5 mg-3 mg(2.5 mg base)/3 mL Solution For Nebulization 3 ml INHALATION Q6H PRN (Reason: Shortness Of Breath Or Wheezing) RF: 0 metoprolol succinate [Toprol XL] 50 mg Tablet Extended Release 24 Hr 50 mg PO QAM RF: 0 diltiazem HCl 240 mg capsule,extended release 24hr 240 mg PO QAM RF: 0 tramadol 50 mg Tablet 50 mg PO QAM RF: 0 metformin 1,000 mg Tablet 1,000 mg PO BID RF: 0 docusate sodium [Colace] 100 mg Capsule 100 mg PO BID RF: 0 budesonide 0.5 mg/2 mL Suspension For Nebulization 0.5 mg INHALATION BID RF: 0 furosemide [Lasix] 20 mg Tablet 20 mg PO DAILY PRN (Reason: Swelling) RF: 0 polyethylene glycol 3350 [Miralax] 17 gram/dose Powder 17 g PO QDL RF: 0 albuterol sulfate [ProAir HFA] 90 mcg/actuation Hfa Aerosol Inhaler 2 puff INHALATION Q4H PRN (Reason: COUGH/WHEEZING) RF: 0 sertraline [Zoloft] 50 mg Tablet 50 mg PO QAM RF: 0 cholecalciferol (vitamin D3) [Vitamin D3] 5,000 unit Tablet 5,000 unit PO QAM RF: 0 acetaminophen [Tylenol Arthritis Pain] 650 mg Tablet Extended Release 650 mg PO HS PRN (Reason: Back Pain) RF: 0 omeprazole 20 mg Tablet,Delayed Release (Dr/Ec) 20 mg PO HS RF: 0 Discontinued levofloxacin 750 mg tablet 750 mg PO DAILY RF: 0 Eliquis 2.5 mg tablet 2.5 mg PO BID RF: 0 Discharge Orders: Discharge Order (Routine); Ordered 06/26/19 Ordered By: Leisa Krishna Admission Data Admit Date/Time: 06/23/19 20:20 Attending Provider: Hardy,Leisa M. Admit Provider: Elliot Alcocer Primary Care Provider: Mamadou Torre Other Providers: Chelle Brantley Other Interventions: Discharge Summary Assessment (RN) Last Done: 06/26/19 16:06 DC Date/Time DO NOT enter until pt leaves facility: 06/26/19 16:58
== END 2019-06-26 16:58 | disposition home health service (06) | DRG 389 ==
LOC: ED 14:59 → 2N 20:20 → 3N 06-24 15:25

== ENCOUNTER 2019-10-21 14:13 | Inpatient (IN) ==
[2019-10-21] MEDS ORDERED: SODIUM CHLORIDE 0.9% 1000ML 1,000 ML IV ONE (14:51)
[2019-10-21] MEDS ORDERED: ACETAMINOPHEN 500 MG TAB PO STA (14:53)
[2019-10-21] MEDS ORDERED: ALBUT/IPRATROP 3MG/0.5MG NEB 3 ML VIAL NEB STA (15:07)
[2019-10-21] MEDS ORDERED: MAGNESIUM SULFATE / D5W 1 GM/100 ML BAG IV SCH (15:10)
[2019-10-21] MEDS ORDERED: cefTRIAXone SODIUM 1,000 MG/50 ML BAG IV STA (15:31)
[2019-10-21] MEDS ORDERED: DOXYCYCLINE HYCLATE 100 MG in DEXTROSE 5% 100 ML IV STA (15:32)
[2019-10-21 15:47] LABS: Partial Thromboplastin Time 28.4 Seconds (21.0-31.0); Prothrombin Time 10.5 Seconds (9.0-12.0)
--- NOTE | 2019-10-21 15:47 | XRay Report ---
XR chest 1V portable HISTORY: SEPSIS COMPARISON: Chest 06/23/2019. FINDINGS: No pneumothorax. The heart remains mildly enlarged. Small right pleural effusion persists. Mild interstitial thickening at the left lung base remains unchanged. Emphysema. Stable volume loss w ithin the right hemithorax. Calcification overlying the right lung base is also unchanged. No evidenc e for pulmonary edema. IMPRESSION: No significant change compared to the prior study. No acute process. Small right pleural effusion and emphysema persists. ACT 112: Negative or not required by law. Electronically signed by: Wenceslao Richardson M.D. 10/21/2019 3:46 PM
[2019-10-21 15:53] LABS: Alanine Aminotransferase 29 U/L (12-78); Aspartate Aminotransferase 28 U/L (15-37); BUN Creatinine Ratio 16.2 (10-20); Blood Urea Nitrogen 12 mg/dl (7-18); Calcium 8.3 mg/dl (8.5-10.1); Carbon Dioxide 27 mmol/L (21-32); Chloride 100 mmol/L (98-107); Creatinine Clr Calc Pharmacy 55.2 ml/min; Est GFR (African American) 84.7; Est GFR (Non-African American) 73.1; Glucose 101 mg/dl (70-99); Lipase 137 U/L (73-393); Magnesium 1.4 mg/dl (1.8-2.4); Potassium 4.2 mmol/L (3.5-5.1); Sodium 134 mmol/L (136-145)
--- NOTE | 2019-10-21 15:56 | CT Scan Report ---
CT OF THE CHEST WITHOUT IV CONTRAST CLINICAL HISTORY: Shortness of breath and fever. COMPARISON STUDY: Chest CT August 18, 2015. Chest radiograph performed earlier today. TECHNIQUE: Axial images of the chest were obtained without IV contrast. Images were reviewed in the axial, sagittal, and coronal planes. IV contrast was not administered for this examination. Automat ed exposure control was utilized for the study. A dose lowering technique was utilized adhering to t he principles of ALARA. FINDINGS: Incidental note is made of a partially visualized right glenohumeral joint effusion. Mild dilatation of the ascending aorta is unchanged. There is moderate cardiomegaly. Moderate coronary art henry calcification is noted. Right hemithorax volume loss is unchanged. Right basilar pleural calcific ation is unchanged. Old right-sided rib deformities are noted. There is no consolidation to suggest p neumonia. A few small pulmonary nodules are unchanged since prior examination. The central airways ar e patent. There is no pneumothorax. No pleural effusion is present. The appearance of the chest is un changed since CT of August 18, 2015. Upper abdomen is unremarkable. IMPRESSION: No acute findings. Chronic findings within the right hemithorax, unchanged since CT of A pri 2015. ACT 112: Negative or not required by law. Electronically signed by: Suraj Pope M.D. 10/21/2019 3:55 PM
[2019-10-21 15:58] LABS: Albumin Globulin Ratio 0.8 (0.9-2); Alkaline Phosphatase 56 U/L (45-117); Bilirubin,Total 0.9 mg/dl (0.2-1); Globulin 3.6 gm/dl (2.5-4.0); Total Protein 6.6 gm/dl (6.4-8.2); Troponin I < 0.015 ng/ml (0-0.045)
--- NOTE | 2019-10-21 15:58 | Emergency Department Note ---
Impression & Plan Weakness, Fever, Hypomagnesemia, Acute exacerbation of chronic obstructive pulmonary disease ED Provider Note Provider: Moses Shelley MD DATE OF SERVICE: 10/21/2019 CHIEF COMPLAINT: Fever, weakness, abdominal pain HISTORY OF PRESENT ILLNESS: Patient is a 84-year-old female with a history of COPD, atrial fibrillation on Eliquis, GERD, SBO, prediabetes presenting today from home via ambulance due to fever, diffuse myalgias, and some upper abdominal discomfort she had today. No trauma reported. No sick contact. Patient states that she was short of breath in route this improved with a bit of oxygen. Normally does not wear oxygen during the day. Did not take anything for the fever. No travel. Denies swelling. Denies chest pain. Patient denies specific joint pain. Patient states compliance with home medications although she took her morning meds a bit late today. Has not eaten today at all. Denies nausea or vomiting. Patient states recent UTI Bactrim but now has urinary hesitancy. Patient states he was at that yesterday and after coming home there is when she began to experience significant symptoms. Patient reports she has multiple dental caries and teeth need to be removed but this had not been completed yet. REVIEW OF SYSTEMS: A total of 10 review of systems was obtained and negative except as stated above in the HPI. PAST MEDICAL HISTORY: As noted above MEDICATIONS: Reviewed medication list was significant includes Eliquis and chronic prednisone SOCIAL HISTORY: Lives at home, non-smoker. PHYSICAL EXAM: GENERAL: alert and oriented in no acute distress on stretcher Head: normocephalic and atraumatic EYES: No injection, discharge or icterus. NECK: Trachea midline. Supple. ENT: Mucous membranes pink and moist. Poor dentition with multiple caries noted on the right upper, left upper molars as well as the middle central lower incisor with periodontal disease without evidence of abscess or fluctuance. LUNGS: Airway patent. No retractions. Breath sounds clear with expiratory wheeze HEART: Regular rate and rhythm. No chest wall tenderness ABDOMEN: Soft and non-tender, without guarding or rebound. SKIN: Acyanotic, warm, dry, without rashes EXTREMITIES: Without swelling or significant tenderness NEUROLOGICAL: No focal deficits. No aphasia. No facial droop or slurred speech. Normal strength and tone in the extremities. Sensation to gross touch normal. EK bpm normal sinus rhythm. No PVCs. No acute ST segment elevation, lead I and aVL T wave inversion as well as 2 inversions in V5 and V6. QTc 440. In comparison to previous available from June 22 of this year similar although the T wave inversion in lead I is somewhat more prominent. CONTINUOUS CARDIAC MONITORING: was ordered and showed a heart rate of 82 bpm in normal sinus rhythm Patient's hypertension was referred to the hospitalist HOSPITAL COURSE: 1500 Patient was first seen and H&P performed. 1632 Patient reassessed and updated. Patient was having some improvement of symptoms. Updated patient and granddaughter findings and discussed further observation here in the hospital. Patient's laboratory studies and imaging reviewed. Differential includes Viral syndrome, otitis, pharyngitis, pneumonia, influenza, meningitis, urinary tract infection, sepsis, bacteremia, as well as other pathologies. IMPRESSION/MEDICAL DECISION MAKING: Patient presents febrile hypoxic and mildly tachypneic. Placed on a small amount oxygen here for hypoxia. On anticoagulation makes PE unlikely. And a normal sinus rhythm. Doubt ACS but EKG and troponin were completed without acute ischemic findings. Concern for sepsis. Cultures and lactate ordered. Lactate likely not significantly elevated. White count not elevated. Empirically did receive ceftriaxone doxycycline for broad coverage. Urinalysis is questionable for infection. Hypomagnesemia is noted and could be contributing to some of her weakness symptoms. Chronic anemia is noted. No evidence of hepatitis. No evidence of pancreatitis. CT scan of the chest giving her breathing, without contrast without significant findings acutely with chronic bronchiectasis. Given the mild abdominal discomfort she had earlier decreased intake today and history of small bowel obstruction CT scan the abdomen pelvis was completed again without significant pathology notable. Given the recent dental work a CT of the face was completed without evidence of appreciable abscess although poor dentition is appreciated on exam. Given nebulizer treatment and Tylenol here for her breathing and to treat the fever. Given 1 dose of Solu-Medrol and IV magnesium. Hypomagnesemia noted. Wonder if perhaps there could be an occult infection may be transient bacteremia from the dental cleaning yesterday causing her symptoms. Lyme screen sent. No leukopenia, thrombocytopenia, transaminase findings suggestive of anaplasmosis. Given her medical comorbidities and oxygen requirement we the further observation the hospital is recommended. She was in agreement. The hospitalist was contacted. DIAGNOSIS: Weakness, fever, COPD exacerbation, hypomagnesemia DISPOSITION: Hospitalist will evaluate Patient was agreeable with this plan. Past Med/Surg History Social History Preferred Language: Citizen Of [place] Communication Ability: Effective Gunite Nozzle Operator Required: No Beliefs That Will Affect Care: None marital status: Current Living Situation: Alone current occupational status: retired Feels Safe at Home: Yes Smoking Status: Never smoker Hx Alcohol Use: No Hx Substance Use: No Allergies Allergies Allergy/AdvReac Type Severity Reaction Status Date / Time Cipro Allergy Intermediate hives, Verified 04/25/17 06:31 itching ciprofloxacin Allergy Intermediate hives, Verified 10/21/19 15:50 itching amoxicillin Allergy Mild Itching Verified 10/21/19 15:49 clavulanic acid Allergy Mild Itching Verified 10/21/19 15:49 alendronate sodium AdvReac Intermediate feet and Verified 10/21/19 15:49 hand pain levofloxacin AdvReac Intermediate muscle pain Verified 10/21/19 15:49 Home Meds Home Medications Medication Instructions Recorded Confirmed albuterol sulfate [ProAir HFA] 2 puff INHALATION Q4H PRN 07/30/18 10/21/19 budesonide 0.5 mg INHALATION BID 07/30/18 10/21/19 cholecalciferol (vitamin D3) 5,000 unit PO QAM 07/30/18 10/21/19 [Vitamin D3] diltiazem HCl 240 mg PO QAM 07/30/18 10/21/19 docusate sodium [Colace] 100 mg PO BID 07/30/18 10/21/19 doxycycline hyclate 100 mg PO BID PRN 07/30/18 10/21/19 furosemide [Lasix] 20 mg PO DAILY PRN 07/30/18 10/21/19 metformin 1,000 mg PO BID 07/30/18 10/21/19 metoprolol succinate [Toprol XL] 50 mg PO QAM 07/30/18 10/21/19 prednisone 10 mg PO QAM 07/30/18 10/21/19 sennosides [Senokot] 8.6 mg PO QDL 07/30/18 10/21/19 sertraline [Zoloft] 50 mg PO QAM 07/30/18 10/21/19 tramadol 50 mg PO Q6 PRN 07/30/18 10/21/19 montelukast [Singulair] 10 mg PO QAM 02/08/19 10/21/19 omeprazole 20 mg PO HS 05/05/19 10/21/19 nitrofurantoin monohyd/m-cryst 100 mg PO DAILY PRN 06/23/19 10/21/19 ondansetron 4 mg PO Q8H PRN 06/23/19 10/21/19 apixaban [Eliquis] 2.5 mg PO BID 10/21/19 10/21/19 ipratropium-albuterol 3 ml INHALATION Q6 10/21/19 10/21/19 polyethylene glycol 3350 [Miralax] 17 g PO DAILY 10/21/19 10/21/19 Results & Data (ED) Vital Signs Vital Signs - 24 hr 10/21/19 14:15 10/21/19 14:22 10/21/19 14:27 Temperature 38.1 C H Temperature Source Oral Pulse Rate 87 86 86 Pulse Rate [Right Finger] Pulse Rate from SpO2 Sensor 86 Respiratory Rate 28 H 32 H 28 H Respiratory Effort / Characteristics Non-Labored Respiratory Depth Normal Respiratory Pattern Regular Blood Pressure 155/70 H 155/70 H Blood Pressure Mean 98 91 Blood Pressure Position Sitting Pulse Oximetry 89 L 90 Oxygen Delivery Method Room Air Oxygen Flow Rate Sepsis Recent Fever Within 48 Hours Yes Sepsis New/Unexplained Change in Mental Status No Sepsis Action Taken by Nursing Physician Notified 10/21/19 14:30 10/21/19 15:00 10/21/19 15:01 Temperature Temperature Source Pulse Rate 86 80 82 Pulse Rate [Right Finger] Pulse Rate from SpO2 Sensor 86 82 82 Respiratory Rate 26 H 23 19 Respiratory Effort / Characteristics Respiratory Depth Respiratory Pattern Blood Pressure 142/87 H 149/72 H Blood Pressure Mean 114 108 Blood Pressure Position Pulse Oximetry 97 97 Oxygen Delivery Method Oxygen Flow Rate Sepsis Recent Fever Within 48 Hours Sepsis New/Unexplained Change in Mental Status Sepsis Action Taken by Nursing 10/21/19 15:19 Temperature Temperature Source Pulse Rate Pulse Rate [Right Finger] 80 Pulse Rate from SpO2 Sensor Respiratory Rate 20 Respiratory Effort / Characteristics Non-Labored Spontaneous Respiratory Depth Respiratory Pattern Blood Pressure Blood Pressure Mean Blood Pressure Position Pulse Oximetry 98 Oxygen Delivery Method Nasal Cannula Oxygen Flow Rate 1 Sepsis Recent Fever Within 48 Hours Sepsis New/Unexplained Change in Mental Status Sepsis Action Taken by Nursing Laboratory Data Result diagrams: 10/21/19 15:19 10/21/19 15:19 Lab Results 10/21/19 10/21/19 10/21/19 Range/Units 15:19 15:19 15:19 WBC 9.61 (4.8-10.8) K/uL RBC 4.05 L (4.2-5.4) M/uL Hgb 9.5 L (12.0-16.0) g/dL Hct 32.8 L (37-47) % MCV 81.0 (80-100) fL MCH 23.5 L (25-34) pg MCHC 29.0 L (32-36) g/dL RDW Std Deviation 51.0 H (36.4-46.3) fL RDW Coeff of Shahriar 17.2 H (11.5-14.5) % Plt Count 267 (130-400) K/uL MPV 9.2 (7.4-10.4) fL Immature Gran % (Auto) 0.7 % Neut % (Auto) 85.1 % Lymph % (Auto) 3.5 % [place]ah % (Auto) 9.6 % Eos % (Auto) 0.6 % Baso % (Auto) 0.5 % Neut # (Auto) 8.17 H (1.4-6.5) K/uL Lymph # (Auto) 0.34 L (1.2-3.4) K/uL Sequ[place]ah # (Auto) 0.92 H (0.11-0.59) K/uL Eos # (Auto) 0.06 (0-0.5) K/uL Baso # (Auto) 0.05 (0-0.2) K/uL Immature Gran # (Auto) 0.07 H (0.00-0.02) K/uL Absolute Nucleated RBC 0.02 H (0-0) K/uL Nucleated RBC % (auto) 0.2 % Hypochromasia Present PT 10.5 (9.0-12.0) Seconds INR 1.0 (0.9-1.1) APTT 28.4 (21.0-31.0) Seconds PTT Ratio 1.0 Sodium 134 L (136-145) mmol/L Potassium 4.2 (3.5-5.1) mmol/L Chloride 100 (98-107) mmol/L Carbon Dioxide 27 (21-32) mmol/L Anion Gap 7.0 (3-11) BUN 12 (7-18) mg/dl Creatinine 0.76 (0.6-1.2) mg/dl Est Cr Clr Drug Dosing 55.2 ml/min Est GFR ( Amer) 84.7 Est GFR (Non-Af Amer) 73.1 BUN/Creatinine Ratio 16.2 (10-20) Glucose 101 H (70-99) mg/dl Lactate (0.4-2.0) mmol/L Calcium 8.3 L (8.5-10.1) mg/dl Magnesium 1.4 L (1.8-2.4) mg/dl Total Bilirubin 0.9 (0.2-1) mg/dl AST 28 (15-37) U/L ALT 29 (12-78) U/L Alkaline Phosphatase 56 (45-117) U/L Troponin I < 0.015 (0-0.045) ng/ml Total Protein 6.6 (6.4-8.2) gm/dl Albumin 3.0 L (3.4-5.0) gm/dl Globulin 3.6 (2.5-4.0) gm/dl Albumin/Globulin Ratio 0.8 L (0.9-2) Lipase 137 (73-393) U/L Procalcitonin (0-0.5) ng/ml Urine Color Urine Appearance (Clear) Urine pH (4.5-7.5) Ur Specific [place] (1.000-1.030) Urine Protein (Negative) Urine Glucose (UA) (Negative) Urine Ketones (Negative) Urine Blood (Negative) Urine Nitrite (Negative) Urine Bilirubin (Negative) Urine Urobilinogen (Negative) Ur Leukocyte Esterase (Negative) Urine WBC (Auto) (0-5) /hpf Urine RBC (Auto) (0-4) /hpf U Hyaline Cast (Auto) (0-5) /lpf U Epithel Cells (Auto) (0-5) /lpf Urine Bacteria (Auto) (Negative) 10/21/19 10/21/19 10/21/19 Range/Units 15:19 15:19 15:58 WBC (4.8-10.8) K/uL RBC (4.2-5.4) M/uL Hgb (12.0-16.0) g/dL Hct (37-47) % MCV (80-100) fL MCH (25-34) pg MCHC (32-36) g/dL RDW Std Deviation (36.4-46.3) fL RDW Coeff of Shahriar (11.5-14.5) % Plt Count (130-400) K/uL MPV (7.4-10.4) fL Immature Gran % (Auto) % Neut % (Auto) % Lymph % (Auto) % [place] % (Auto) % Eos % (Auto) % Baso % (Auto) % Neut # (Auto) (1.4-6.5) K/uL Lymph # (Auto) (1.2-3.4) K/uL [place] # (Auto) (0.11-0.59) K/uL Eos # (Auto) (0-0.5) K/uL Baso # (Auto) (0-0.2) K/uL Immature Gran # (Auto) (0.00-0.02) K/uL Absolute Nucleated RBC (0-0) K/uL Nucleated RBC % (auto) % Hypochromasia PT (9.0-12.0) Seconds INR (0.9-1.1) APTT (21.0-31.0) Seconds PTT Ratio Sodium (136-145) mmol/L Potassium (3.5-5.1) mmol/L Chloride (98-107) mmol/L Carbon Dioxide (21-32) mmol/L Anion Gap (3-11) BUN (7-18) mg/dl Creatinine (0.6-1.2) mg/dl Est Cr Clr Drug Dosing ml/min Est GFR ( Amer) Est GFR (Non-Af Amer) BUN/Creatinine Ratio (10-20) Glucose (70-99) mg/dl Lactate 1.0 (0.4-2.0) mmol/L Calcium (8.5-10.1) mg/dl Magnesium (1.8-2.4) mg/dl Total Bilirubin (0.2-1) mg/dl AST (15-37) U/L ALT (12-78) U/L Alkaline Phosphatase (45-117) U/L Troponin I (0-0.045) ng/ml Total Protein (6.4-8.2) gm/dl Albumin (3.4-5.0) gm/dl Globulin (2.5-4.0) gm/dl Albumin/Globulin Ratio (0.9-2) Lipase (73-393) U/L Procalcitonin 0.60 H (0-0.5) ng/ml Urine Color Dark Yellow Urine Appearance Clear (Clear) Urine pH 6.5 (4.5-7.5) Ur Specific [place] 1.013 (1.000-1.030) Urine Protein Negative (Negative) Urine Glucose (UA) Negative (Negative) Urine Ketones Negative (Negative) Urine Blood Negative (Negative) Urine Nitrite Negative (Negative) Urine Bilirubin Negative (Negative) Urine Urobilinogen Negative (Negative) Ur Leukocyte Esterase Trace H (Negative) Urine WBC (Auto) 5-10 H (0-5) /hpf Urine RBC (Auto) 0-4 (0-4) /hpf U Hyaline Cast (Auto) 1-5 (0-5) /lpf U Epithel Cells (Auto) 20-30 H (0-5) /lpf Urine Bacteria (Auto) Negative (Negative) Administered Medications Discontinued Medications Acetaminophen (Tylenol) 1,000 mg PO NOW STA Stop: 10/21/19 14:54 Last Admin: 10/21/19 15:04 Dose: 1,000 mg Documented by: [id number] Albuterol (Duoneb) 3 ml NEB NOW STA Stop: 10/21/19 15:08 Last Admin: 10/21/19 15:19 Dose: 3 ml Documented by: [id number] Sodium Chloride (Nss 1000ml) 1,000 mls @ 999 mls/hr IV .Q1H1M ONE Stop: 10/21/19 15:51 Last Infusion: 10/21/19 16:53 Dose: 0 mls/hr Documented by: [id number] Admin: 10/21/19 15:04 Dose: 999 mls/hr Documented by: [id number] Magnesium Sulfate/Dextrose (Magnesium Sulfate / D5w) 1 gm in 100 mls @ 400 mls/hr IV Q15M JULIANNE Stop: 10/21/19 15:24 Last Infusion: 10/21/19 16:01 Dose: 0 mls/hr Documented by: [id number] Admin: 10/21/19 15:25 Dose: 400 mls/hr Documented by: [id number] Ceftriaxone Sodium (Rocephin) 1,000 mg in 50 mls @ 100 mls/hr IV NOW STA Stop: 10/21/19 16:00 Last Infusion: 10/21/19 16:53 Dose: 0 mls/hr Documented by: [id number] Admin: 10/21/19 16:22 Dose: 100 mls/hr Documented by: [id number] Doxycycline Hyclate 100 mg/ (Dextrose) 110 mls @ 55 mls/hr IV NOW STA Stop: 10/21/19 17:31 Last Admin: 10/21/19 16:23 Dose: 55 mls/hr Documented by: [id number] Magnesium Sulfate/Dextrose (Magnesium Sulfate / D5w) 1 gm in 100 mls @ 100 mls/hr IV NOW STA Stop: 10/21/19 17:08 Last Admin: 10/21/19 17:02 Dose: 100 mls/hr Documented by: [id number] Discharge Plan Visit Data Chief Complaint: Fever Stated Complaint: Fever, Body Aches ED Provider: Moses Shelley Discharge Problem: Weakness, Fever, Hypomagnesemia, Acute exacerbation of chronic obstructive pulmonary disease Patient Disposition: Being Evaluated by Hospitalist Forms Stand Alone Forms: [facility] Prescriptions Prescriptions: No Action montelukast [Singulair] 10 mg Tablet 10 mg PO QAM RF: 0 ondansetron 4 mg tablet,disintegrating 4 mg PO Q8H PRN (Reason: Nausea And Vomiting) RF: 0 nitrofurantoin monohyd/m-cryst 100 mg capsule 100 mg PO DAILY PRN (Reason: Frequent UTI's) RF: 0 sennosides [Senokot] 8.6 mg Tablet 8.6 mg PO QDL RF: 0 prednisone 10 mg Tablet 10 mg PO QAM RF: 0 doxycycline hyclate 100 mg Capsule 100 mg PO BID PRN (Reason: COPD Rescue Kit) RF: 0 metoprolol succinate [Toprol XL] 50 mg Tablet Extended Release 24 Hr 50 mg PO QAM RF: 0 diltiazem HCl 240 mg capsule,extended release 24hr 240 mg PO QAM RF: 0 tramadol 50 mg Tablet 50 mg PO Q6 PRN (Reason: Pain) RF: 0 metformin 1,000 mg Tablet 1,000 mg PO BID RF: 0 docusate sodium [Colace] 100 mg Capsule 100 mg PO BID RF: 0 budesonide 0.5 mg/2 mL Suspension For Nebulization 0.5 mg INHALATION BID RF: 0 furosemide [Lasix] 20 mg Tablet 20 mg PO DAILY PRN (Reason: Swelling) RF: 0 albuterol sulfate [ProAir HFA] 90 mcg/actuation Hfa Aerosol Inhaler 2 puff INHALATION Q4H PRN (Reason: COUGH/WHEEZING) RF: 0 sertraline [Zoloft] 50 mg Tablet 50 mg PO QAM RF: 0 cholecalciferol (vitamin D3) [Vitamin D3] 5,000 unit Tablet 5,000 unit PO QAM RF: 0 omeprazole 20 mg Tablet,Delayed Release (Dr/Ec) 20 mg PO HS RF: 0 ipratropium-albuterol 0.5 mg-3 mg(2.5 mg base)/3 mL Solution For Nebulization 3 ml INHALATION Q6 RF: 0 polyethylene glycol 3350 [Miralax] 17 gram Powder In Packet 17 g PO DAILY RF: 0 Eliquis 2.5 mg tablet 2.5 mg PO BID RF: 0 Referrals Referrals: Mamadou Torre MD [Primary Care Provider] - Discharge Problem: Fever Qualifiers: Fever type: unspecified Qualified Code(s): R50.9 - Fever, unspecified
--- NOTE | 2019-10-21 16:04 | CT Scan Report ---
CT OF THE ABDOMEN AND PELVIS WITHOUT CONTRAST CLINICAL HISTORY: pain, fever, weakness COMPARISON STUDY: CT of the abdomen and pelvis June 23, 2019. TECHNIQUE: Axial images of the abdomen and pelvis were obtained without IV contrast. Images were revi ewed in the axial, sagittal, and coronal planes. Automated exposure control was utilized for the claudette dy. A dose lowering technique was utilized adhering to the principles of ALARA. FINDINGS: The chest will be reported separately. No pneumatosis, free air or portal venous gas is pre sent. Evaluation of the abdomen and pelvis is suboptimal on this unenhanced examination. There is no biliary ductal dilatation status post cholecystectomy. Unenhanced images of the liver, spleen, adrena l glands, kidneys and pancreas are unremarkable. There is no hydronephrosis. There is no peripancreat ic infiltration. There is extensive plaque of the abdominal aorta which is normal in caliber. The javier endix is not visualized. There is no evidence for a bowel obstruction. Colonic diverticulosis is note d without evidence for acute diverticulitis. Previous ventral hernia repair with mesh is noted. A mid line ventral hernia which contains multiple small bowel loops is similar appearance to prior examinat ion. This does not result in a bowel obstruction. There are no suspicious osseous lesions. Is no lymp hadenopathy. IMPRESSION: 1. No acute process within the abdomen or pelvis on unenhanced exam. 2. No bowel obstruction. No bowel wall thickening identified. ACT 112: Negative or not required by law. Electronically signed by: Suraj Pope M.D. 10/21/2019 4:03 PM
--- NOTE | 2019-10-21 16:07 | CT Scan Report ---
MAXILLOFACIAL CT CT DOSE: 2107.44 mGy.cm HISTORY: dental pain, ?infection TECHNIQUE: Multiaxial CT images of the maxillofacial region were performed and reformatted in the cor onal plane without the use of contrast. A dose lowering technique was utilized adhering to the princ iplemilee of JAQUELINE. COMPARISON: None. FINDINGS: The paranasal sinuses and mastoid air cells are clear. Multiple scattered caries seen throu ghout the residual teeth. No periapical lucency identified. Dental artifact results in suboptimal madhu luation of the oral cavity. No definite soft tissue swelling identified. The orbits and visualized br ain parenchyma are unremarkable. Moderate calcified plaque within the carotid bifurcations. Preverteb ral soft tissues are intact. Suboptimal evaluation for an abscess due to the lack of intravenous cont rast. However, no definite abscess identified. IMPRESSION: Scattered dental caries. No definite inflammatory change or abscess identified on this noncontrast st udy. ACT 112: Negative or not required by law. Electronically signed by: Wenceslao Richardson M.D. 10/21/2019 4:06 PM
[2019-10-21] MEDS ORDERED: MAGNESIUM SULFATE / D5W 1 GM/100 ML BAG IV STA (16:09)
[2019-10-21 16:15] LABS: Hematocrit (blood only) 32.8 % (37-47); Hemoglobin 9.5 g/dL (12.0-16.0); Mean Corpuscular Hemoglobin 23.5 pg (25-34); Mean Platelet Volume 9.2 fL (7.4-10.4); Nucleated RBC # (auto) 0.02 K/uL (0-0); Nucleated RBC % (auto) 0.2 %; Platelet Count 267 K/uL (130-400); RDW Coefficient of Variation 17.2 % (11.5-14.5); Red Blood Count 4.05 M/uL (4.2-5.4); White Blood Count 9.61 K/uL (4.8-10.8)
[2019-10-21 16:18] LABS: Appearance Urine Clear (Clear); Bacteria Urine Automated Negative (Negative); Bilirubin Urine Negative (Negative); Blood Urine Negative (Negative); Color Urine Dark Yellow; Epithelial Cell Urine Auto 20-30 /lpf (0-5); Glucose Urine UA Negative (Negative); Ketones Urine Negative (Negative); Leukocyte Esterase Urine Trace (Negative); Nitrite Urine Negative (Negative); Protein Urine Negative (Negative); RBC Urine Automated 0-4 /hpf (0-4); Specific Gravity Urine 1.013 (1.000-1.030); Urobilinogen Urine Negative (Negative); pH Urine 6.5 (4.5-7.5)
[2019-10-21] MEDS ORDERED: methylPREDNISolone 60 MG in SYRINGE 1 ML IV STA (16:24)
[2019-10-21 16:28] LABS: Basophils # (auto) 0.05 K/uL (0-0.2); Basophils % (auto) 0.5 %; Eosinophils # (auto) 0.06 K/uL (0-0.5); Eosinophils % (auto) 0.6 %; Hypochromasia Present; Immature Granulocytes # (auto) 0.07 K/uL (0.00-0.02); Immature Granulocytes % (auto) 0.7 %; Lymphocytes # (auto) 0.34 K/uL (1.2-3.4); Lymphocytes % (auto) 3.5 %; Monocytes # (auto) 0.92 K/uL (0.11-0.59); Monocytes % (auto) 9.6 %; Neutrophils # (auto) 8.17 K/uL (1.4-6.5); Neutrophils % (auto) 85.1 %
--- NOTE | 2019-10-21 17:15 | Electrocardiogram Report ---
Test Reason : Blood Pressure : / mmHG Vent. Rate : 085 BPM Atrial Rate : 085 BPM P-R Int : 158 ms QRS Dur : 084 ms QT Int : 370 ms P-R-T Axes : -03 -18 095 degrees QTc Int : 440 ms Normal sinus rhythm Diffuse Minor Nonspecific ST abnormality Abnormal ECG When compared with ECG of 23-JUN-2019 17:09, No significant change was found Confirmed by Shad Weiss ([id number]) on 10/21/2019 5:15:08 PM Referred By: REFERRED SELF Confirmed By:Shad Weiss
--- NOTE | 2019-10-21 17:56 | History & Physical Report ---
Date of Service October 21, 2019 Assessment & Plan (1) SIRS (systemic inflammatory response syndrome): (2) Fever: This is an 84-year-old female who has significant past medical history of COPD on 2 L of O2 at at bedtime, bronchiectasis, PAF anticoagulated on warfarin, T2DM, HTN, HLD, osteoporosis, spinal stenosis who presents to ED secondary to fever and ill feeling x1 day. Pt meets SIRS criteria per current CMS guidelines 2/2 to fever and tachypnea. Lactic acid WNL, procalcitonin mildly elevated. Received broad-spectrum IV antibiotics while in ED IV Rocephin and doxycycline. CTA chest, abdomen pelvis and face were without evidence of infection. UA appears contaminated Patient did have dental cleaning yesterday and fever may be secondary to gingival inflammation versus bacteremia. Admit to telemetry Continue broad-spectrum IV antibiotics with vancomycin and cefepime COVID-19 testing ordered Rule out tick borne illness blood cultures pending APAP for fever control if blood culture + order echocardiogram (3) Hypomagnesemia: Mag 1.4 Received 1 g mag sulfate x2 in ED Give additional 1 g mag when on floor Repeat mag in a.m. (4) Paroxysmal a-fib: Rate and rhythm control with metoprolol and diltiazem Continue apixaban for stroke prophylaxis (5) COPD, severe: On 2 L of O2 at bedtime Continue budesonide neb treatments, chronic prednisone 10 mg daily She also uses duo nebs twice daily and as needed No acute exacerbation Imaging reveals no acute consolidation (6) Prediabetes: Last A1c 6.2 09/2019 NovoLog per protocol Hold metformin (7) HTN (hypertension): Controlled, continue Toprol and diltiazem (8) Nocturnal hypoxemia: Chronically on 2 L at bedtime (9) GERD (gastroesophageal reflux disease): Continue PPI (10) DVT prophylaxis: Continue apixaban Disposition: Admit to telemetry Follow-up: PCP Dr. Torre upon discharge Patient was seen and examined in collaboration with Dr. Braun, please see addendum History of Present Illness Chief Complaint: Fever and ill feeling x1 day. Primary Care Provider: Mamadou Torre MD This is an 84-year-old female who has significant past medical history of COPD on 2 L of O2 at at bedtime, bronchiectasis, PAF anticoagulated on warfarin, T2DM, HTN, HLD, osteoporosis, spinal stenosis who presents to ED secondary to fever and ill feeling x1 day. Granddaughter is at bedside. Patient was doing well until yesterday after she went to [facility] dentistry and had her teeth cleaned. Shortly after getting her teeth cleaned she began to feel unwell, nauseated, increased fatigue and weakness. She got minimal sleep throughout the night due to not feeling well. This morning her daughter came to check on her and checked her temperature noting it to be in the low 100s. She does live alone at home but has family support close by. She denies any chills or sweats, lightheadedness, dizziness, syncope, headache, neck pain, URI symptoms, cough, chest pain, shortness of breath, hemoptysis, emesis, abdominal pain, diarrhea. She typically is more constipated and is on a bowel regimen. She denies any difficulty urinating including increased urgency or frequency with urination, hematuria or dysuria. Since quarantine she has been staying at home and the first time she went out in public with yesterday's dental appointment. She denies any known COVID-19 contacts. She further denies any rashes or known tick bites. Typically she is on oxygen 2 L at at bedtime but not during the day. In ED patient remained hemodynamically stable although she was febrile at 38.1 and tachypneic. She did require supplemental oxygen to maintain O2 saturations. Lab work notable for WBC 9.61, H&H 9.5 and 32.8, platelet 267, sodium 134, BUN 12, creatinine 0.76, glucose 101, lactate 1.0, mag 1.4, troponin WNL, LFTs WNL, procalcitonin elevated 0.60. Urinalysis consistent with contamination. She underwent multiple imaging studies including chest x-ray, CT scan of chest, abdomen pelvis and face. The CT did reveal multiple dental caries but no apparent abscess or inflammation. No evidence of consolidation or abdominal infection. Empirically she did receive IV Rocephin and doxycycline while in ED, magnesium supplementation, nebulizer treatment and IV Solu-Medrol. Allergies Allergy/AdvReac Type Severity Reaction Status Date / Time Cipro Allergy Intermediate hives, Verified 04/25/17 06:31 itching ciprofloxacin Allergy Intermediate hives, Verified 10/21/19 15:50 itching amoxicillin Allergy Mild Itching Verified 10/21/19 15:49 clavulanic acid Allergy Mild Itching Verified 10/21/19 15:49 alendronate sodium AdvReac Intermediate feet and Verified 10/21/19 15:49 hand pain levofloxacin AdvReac Intermediate muscle pain Verified 10/21/19 15:49 Home Medications Home Medications Medication Instructions Recorded Confirmed Type albuterol sulfate [ProAir HFA] 2 puff INHALATION Q4H PRN 07/30/18 10/21/19 History budesonide 0.5 mg INHALATION BID 07/30/18 10/21/19 History cholecalciferol (vitamin D3) 5,000 unit PO QAM 07/30/18 10/21/19 History [Vitamin D3] diltiazem HCl 240 mg PO QAM 07/30/18 10/21/19 History docusate sodium [Colace] 100 mg PO BID 07/30/18 10/21/19 History doxycycline hyclate 100 mg PO BID PRN 07/30/18 10/21/19 History furosemide [Lasix] 20 mg PO DAILY PRN 07/30/18 10/21/19 History metformin 1,000 mg PO BID 07/30/18 10/21/19 History metoprolol succinate [Toprol XL] 50 mg PO QAM 07/30/18 10/21/19 History prednisone 10 mg PO QAM 07/30/18 10/21/19 History sennosides [Senokot] 8.6 mg PO QDL 07/30/18 10/21/19 History sertraline [Zoloft] 50 mg PO QAM 07/30/18 10/21/19 History tramadol 50 mg PO Q6 PRN 07/30/18 10/21/19 History montelukast [Singulair] 10 mg PO QAM 02/08/19 10/21/19 History omeprazole 20 mg PO HS 05/05/19 10/21/19 History nitrofurantoin monohyd/m-cryst 100 mg PO DAILY PRN 06/23/19 10/21/19 History ondansetron 4 mg PO Q8H PRN 06/23/19 10/21/19 History apixaban [Eliquis] 2.5 mg PO BID 10/21/19 10/21/19 History ipratropium-albuterol 3 ml INHALATION Q6 10/21/19 10/21/19 History polyethylene glycol 3350 [Miralax] 17 g PO DAILY 10/21/19 10/21/19 History Past Med/Surg History Medical History Arthritis (Chronic) Bronchiectasis (Chronic) COPD, severe (Chronic) GERD (gastroesophageal reflux disease) (Chronic) HTN (hypertension) (Chronic) Hyperlipidemia (Chronic) "statin intolerance" Nocturnal hypoxemia (Chronic) Paroxysmal a-fib (Chronic) Pneumonia (Inactive) Pulmonary hypertension (Chronic) SBO (small bowel obstruction) (Chronic) Shortness of breath Spinal stenosis (Chronic) Surgical History H/O hernia repair (Chronic) H/O: hysterectomy (Chronic) History of cataract surgery (Chronic) History of cholecystectomy (Chronic) 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" Family History Mother Diabetes Father Lung disease Social History Preferred Language: Serbian Communication Ability: Effective Rn Charge Required: No Beliefs That Will Affect Care: None marital status: Current Living Situation: Alone current occupational status: retired Feels Safe at Home: Yes Smoking Status: Never smoker Hx Alcohol Use: No Hx Substance Use: No Review of Systems Review of Systems: All systems reviewed & are unremarkable except as noted in HPI & below Physical Exam Physical Exam: Constitutional: Elderly, female, acutely appearing, lying in bed, WD/WN, vitals as above, pleasant, conversing easily Head: Normocephalic, Atraumatic Eyes: PERRL, conjunctivae normal, anicteric sclerae ENMT: external ear and nose normal, oropharynx normal, poor dentition, absent dentition Neck: trachea midline, no thyromegaly normal visual inspection Respiratory: normal respiratory effort, lungs clear to auscultation, no wheeze, rales, rhonchi. Normal insp/exp effort, no accessory muscle use Cardiovascular: RRR, 2/6 CIARA at RUSB, no edema Vessels: no JVD or carotid bruit Chest: normal inspection of chest Abdomen: Protuberant abdomen, normal bowel sounds, soft, nontender, no hepatosplenomegaly Musculoskeletal: no cyanosis or clubbing, extremities motor strength 5/5 Skin: Numerous areas of ecchymoses to bilateral lower extremity, no rashes or skin breakdown, warm and dry normal turgor Neurologic: PERRL, EOMI, accommodation nl, no face palsy, no dysarthria CN's II-XI intact bilaterally and moves all extremities Psychiatric: A+Ox3, euthymic affect Lymphatic: no cervical or axillary lymphadenopathy : deferred Results & Data Results & Data ([facility]) Vital Signs (Past 12 Hours) Vital Signs Temp Pulse Pulse Resp BP Pulse Ox 10/21/19 15:19 80 20 98 10/21/19 15:01 82 19 149/72 H 97 10/21/19 15:00 80 23 97 10/21/19 14:30 86 26 H 142/87 H 10/21/19 14:27 86 28 H 90 10/21/19 14:22 86 32 H 155/70 H 10/21/19 14:15 38.1 C H 87 28 H 155/70 H 89 L Laboratory Results Short CBC 10/21/19 10/21/19 Range/Units 15:19 15:58 WBC 9.61 (4.8-10.8) K/uL Hgb 9.5 L (12.0-16.0) g/dL Hct 32.8 L (37-47) % Plt Count 267 (130-400) K/uL Urine Color Dark Yellow BMP 10/21/19 15:19 Sodium 134 L Potassium 4.2 Chloride 100 Carbon Dioxide 27 BUN 12 Creatinine 0.76 Glucose 101 H Calcium 8.3 L Cardiac Enzymes 10/21/19 Range/Units 15:19 Troponin I < 0.015 (0-0.045) ng/ml Liver Function 10/21/19 Range/Units 15:19 Total Bilirubin 0.9 (0.2-1) mg/dl AST 28 (15-37) U/L ALT 29 (12-78) U/L Alkaline Phosphatase 56 (45-117) U/L Albumin 3.0 L (3.4-5.0) gm/dl Urine 10/21/19 Range/Units 15:58 Urine Color Dark Yellow Urine Appearance Clear (Clear) Urine pH 6.5 (4.5-7.5) Ur Specific [place] 1.013 (1.000-1.030) Urine Protein Negative (Negative) Urine Glucose (UA) Negative (Negative) Diagnostic Findings CXR: IMPRESSION: No significant change compared to the prior study. No acute process. Small right pleural effusion and emphysema persists. CT abd/pelvis: IMPRESSION: 1. No acute process within the abdomen or pelvis on unenhanced exam. 2. No bowel obstruction. No bowel wall thickening identified. Chest CT: IMPRESSION: 1. No acute process within the abdomen or pelvis on unenhanced exam. 2. No bowel obstruction. No bowel wall thickening identified. Face CT: IMPRESSION: Scattered dental caries. No definite inflammatory change or abscess identified on this noncontrast study. Medications Administered Discontinued Medications Acetaminophen (Tylenol) 1,000 mg PO NOW STA Stop: 10/21/19 14:54 Last Admin: 10/21/19 15:04 Dose: 1,000 mg Documented by: [id number] Albuterol (Duoneb) 3 ml NEB NOW STA Stop: 10/21/19 15:08 Last Admin: 10/21/19 15:19 Dose: 3 ml Documented by: [id number] Sodium Chloride (Nss 1000ml) 1,000 mls @ 999 mls/hr IV .Q1H1M ONE Stop: 10/21/19 15:51 Last Infusion: 10/21/19 16:53 Dose: 0 mls/hr Documented by: [id number] Admin: 10/21/19 15:04 Dose: 999 mls/hr Documented by: [id number] Magnesium Sulfate/Dextrose (Magnesium Sulfate / D5w) 1 gm in 100 mls @ 400 mls/hr IV Q15M JLUIANNE Stop: 10/21/19 15:24 Last Infusion: 10/21/19 16:01 Dose: 0 mls/hr Documented by: [id number] Admin: 10/21/19 15:25 Dose: 400 mls/hr Documented by: [id number] Ceftriaxone Sodium (Rocephin) 1,000 mg in 50 mls @ 100 mls/hr IV NOW STA Stop: 10/21/19 16:00 Last Infusion: 10/21/19 16:53 Dose: 0 mls/hr Documented by: [id number] Admin: 10/21/19 16:22 Dose: 100 mls/hr Documented by: [id number] Doxycycline Hyclate 100 mg/ (Dextrose) 110 mls @ 55 mls/hr IV NOW STA Stop: 10/21/19 17:31 Last Infusion: 10/21/19 17:54 Dose: 0 mls/hr Documented by: [id number] Admin: 10/21/19 16:23 Dose: 55 mls/hr Documented by: [id number] Magnesium Sulfate/Dextrose (Magnesium Sulfate / D5w) 1 gm in 100 mls @ 100 mls/hr IV NOW STA Stop: 10/21/19 17:08 Last Admin: 10/21/19 17:02 Dose: 100 mls/hr Documented by: [id number] Methylprednisolone 60 mg/ (Syringe) 1.96 mls @ 1.5 mls/min IV ONE STA Stop: 10/21/19 16:25 Last Admin: 10/21/19 17:52 Dose: 1.5 mls/min Documented by: [id number] ECG Rate (beats per minute): 85 Rhythm: normal sinus Code Status & VTE Plan Code Status Full Code VTE Prophylaxis Plan VTE Prophylaxis will be ordered: Yes Supervising Physician Co-Signing Physician Notes I, Dr. Oscar Braun, have seen and examined Megan Jin with physician horticultural nursery assistant and agree with the assessment and plan and would like to comment that on physical Exam General: no acute distress Mouth: no gross bleeding from gums Lungs: on supplementary oxygen, no wheezing, lungs sound clear Heart: bradycardic Abdomen: soft, nontender, positive bowel sounds Extremities: moves all extremities Assessment and Plan -this is a patient with dental cleaning and subsequent low grade fever and malaise. Her CT scan of the face did not show evidence of abscess and no gross bleeding from the gums. While patient may have inflammatory reaction from dental cleaning of the gums, will treat with broad spectrum antibiotics and rule out bacteremia. In addition, because patient went to dental office and had prolonged exposure to other people there, she agrees to COVID-19 screening test. also do nasal swab to rule out MRSA. Patient has paroxysmal atrial fibrillation and currently heart rate sound sinus and she is anticoagulated on apixaban. increase to broad spectrum antibiotics of Zosyn and Vancomycin to prevent potential cardiac infections after dental procedure. follow the admission blood cultures. mildly elevated serum procalcitonin -continue COPD treatments but does not appear to be in acute COPD exacerbation -correct the hypomagnesemia with magnesium supplements -agree with other assessment and plans as documented by physician horticultural nursery assistant -My colleague will be the hospitalist attending physician starting on 10/22/2019 (1) Fever Fever type: unspecified Qualified Code(s): R50.9 - Fever, unspecified
[2019-10-21 17:59] LABS: Lyme Ab IgG w/WB Rflx Negative (Negative); Lyme Ab IgM w/WB Rflx Negative (Negative)
[2019-10-21] MEDS ORDERED: CEFEPIME CONSULT ACTIVE PRN (20:42)
[2019-10-21] MEDS ORDERED: GLUCAGON FOR INJ 1 MG VIAL SQ PRN (20:42)
[2019-10-21] MEDS ORDERED: VANCOMYCIN CONSULT ACTIVE PRN (20:42)
[2019-10-21] MEDS ORDERED: POLYETHYLENE (MIRALAX) 17 GM PACK PO PRN (20:42)
[2019-10-21] MEDS ORDERED: CARBOHYDRATES FOR HYPOGLYCEMIA PO PRN (20:42)
[2019-10-21] MEDS ORDERED: ACETAMINOPHEN 325 MG TAB PO PRN (20:42)
[2019-10-21] MEDS ORDERED: ONDANSETRON INJ 2 MG/ML 2 ML VIAL IV PRN (20:42)
[2019-10-21] MEDS ORDERED: GLUCOSE 40% GEL 15 GM TUBE PO PRN (20:42)
[2019-10-21] MEDS ORDERED: MAGNESIUM HYDROXIDE SUSP 30 ML UDC PO PRN (20:42)
[2019-10-21] MEDS ORDERED: TRAMADOL HCL 50 MG TABLET PO PRN (20:42)
[2019-10-21] MEDS ORDERED: GLUCOSE 10 TABS/TUBE PO PRN (20:42)
[2019-10-21] MEDS ORDERED: DEXTROSE 50% 50 ML SYRINGE IV PRN (20:42)
[2019-10-21] MEDS ORDERED: ALUMINUM/MAGNESIUM SUSP 30 ML UDC PO PRN (20:42)
--- NOTE | 2019-10-21 21:25 | Pharmacy Report ---
Pharmacy Abx Dose Short Note - Date of Service October 21, 2019 - Assessment & Plan Assessment 84 year old F receiving vancomycin and cefepime for treatment of sepsis Day # 1 of antimicrobial therapy. Plan Vancomycin * Patient meets criteria for vancomycin AUC dosing nomogram * AUC/DOREEN is the preferred PK/PD target for vancomycin * Target AUC/DOREEN = 400-600 * AUC guided dosing is effective and associated with decreased risk of nephrotoxicity cefepime * start cefepime 2 gm IV q8 hours for unknown infection * Creatinine clearance = 49 mL/min so reduce dose to q12 hours Pharmacy will continue to follow and will adjust dose/frequency as necessary. Thank you.
[2019-10-21] MEDS ORDERED: VANCOMYCIN HCL 1,500 MG in SODIUM CHLORIDE 0.9% 500 ML IV ONE (21:30)
[2019-10-21] MEDS ORDERED: MAGNESIUM SULFATE / D5W 1 GM/100 ML BAG IV ONE (21:30)
[2019-10-21] MEDS: PANTOprazole 40 MG TAB PO SCH (21:39)
[2019-10-21] MEDS: DOCUSATE SODIUM 100 MG CAP PO SCH (21:39)
[2019-10-21] MEDS: CEFEPIME 2,000 MG in SYRINGE 7.5 ML IV SCH (21:39)
[2019-10-21] MEDS: APIXABAN 2.5 MG TAB PO SCH (21:39)
[2019-10-21] MEDS: INSULIN ASPART 100 UNITS/ML 3 ML PEN SC SCH (21:41)
[2019-10-21] MEDS: ALBUT/IPRATROP 3MG/0.5MG NEB 3 ML VIAL NEB SCH (22:26)
[2019-10-22] MEDS: ALBUT/IPRATROP 3MG/0.5MG NEB 3 ML VIAL NEB SCH ×2 (07:10→19:30)
[2019-10-22] MEDS: BUDESONIDE 0.5 MG/2 ML VIAL (PULMICORT) INH SCH ×2 (07:10→19:30)
[2019-10-22 07:25] LABS: Basophils # (auto) 0.01 K/uL (0-0.2); Basophils % (auto) 0.2 %; Hemoglobin 9.1 g/dL (12.0-16.0); Immature Granulocytes # (auto) 0.02 K/uL (0.00-0.02); Immature Granulocytes % (auto) 0.3 %; Lymphocytes # (auto) 0.36 K/uL (1.2-3.4); Lymphocytes % (auto) 5.8 %; Mean Corpuscular Hemoglobin 23.2 pg (25-34); Mean Corpuscular Hgb Conc 28.4 g/dL (32-36); Mean Corpuscular Volume 81.6 fL (80-100); Mean Platelet Volume 9.1 fL (7.4-10.4); Monocytes # (auto) 0.32 K/uL (0.11-0.59); Monocytes % (auto) 5.2 %; Neutrophils # (auto) 5.48 K/uL (1.4-6.5); Neutrophils % (auto) 88.5 %; Platelet Count 261 K/uL (130-400); RDW Standard Deviation 51.3 fL (36.4-46.3); Red Blood Count 3.92 M/uL (4.2-5.4); White Blood Count 6.19 K/uL (4.8-10.8)
[2019-10-22 07:58] LABS: Albumin Level 2.9 gm/dl (3.4-5.0); BUN Creatinine Ratio 21.9 (10-20); Calcium 8.5 mg/dl (8.5-10.1); Creatinine Clr Calc Pharmacy 48.6 ml/min; Est GFR (African American) 83.3; Est GFR (Non-African American) 71.9; Magnesium 2.5 mg/dl (1.8-2.4); Potassium 4.3 mmol/L (3.5-5.1)
[2019-10-22 08:01] LABS: Albumin Globulin Ratio 0.8 (0.9-2); Bilirubin,Total 0.6 mg/dl (0.2-1); Globulin 3.8 gm/dl (2.5-4.0); Total Protein 6.7 gm/dl (6.4-8.2)
[2019-10-22] MEDS ORDERED: predniSONE 10 MG TABLET PO SCH (09:00)
[2019-10-22] MEDS: APIXABAN 2.5 MG TAB PO SCH ×2 (09:17→20:31)
[2019-10-22] MEDS: CHOLECALCIFEROL 1,000 UNITS 25 MCG TAB PO SCH (09:17)
[2019-10-22] MEDS: DOCUSATE SODIUM 100 MG CAP PO SCH ×2 (09:18→20:32)
[2019-10-22] MEDS: dilTIAZem HCL 240 MG CAPCR PO SCH (09:18)
[2019-10-22] MEDS: POLYETHYLENE (MIRALAX) 17 GM PACK PO SCH (09:18)
[2019-10-22] MEDS: METOPROLOL SUCC 50MG EXT REL TAB PO SCH (09:18)
[2019-10-22] MEDS: SERTRALINE HCL 50 MG TABLET PO SCH (09:18)
[2019-10-22] MEDS: MONTELUKAST SODIUM 10 MG TABLET PO SCH (09:18)
[2019-10-22] MEDS: CEFEPIME 2,000 MG in SYRINGE 7.5 ML IV SCH ×2 (09:19→21:57)
[2019-10-22] MEDS: INSULIN ASPART 100 UNITS/ML 3 ML PEN SC SCH ×4 (09:20→20:38)
[2019-10-22] MEDS: SENNA 8.6 MG TAB PO SCH (09:21)
[2019-10-22] MEDS ORDERED: VANCOMYCIN HCL 750 MG in SODIUM CHLORIDE 0.9% 250 ML IV SCH (10:00)
[2019-10-22] MEDS: CLINDAMYCIN HCL 150 MG CAP PO SCH ×2 (15:41→20:32)
--- NOTE | 2019-10-22 20:12 | Hospitalist Progress Note ---
Date of Service October 22, 2019 Assessment & Plan (1) SIRS (systemic inflammatory response syndrome): (2) Fever: Per admitting service notes: This is an 84-year-old female who has significant past medical history of COPD on 2 L of O2 at at bedtime, bronchiectasis, PAF anticoagulated on warfarin, T2DM, HTN, HLD, osteoporosis, spinal stenosis who presents to ED secondary to fever and ill feeling x1 day. Pt meets SIRS criteria per current CMS guidelines 2/2 to fever and tachypnea. Lactic acid WNL, procalcitonin mildly elevated. Received broad-spectrum IV antibiotics while in ED IV Rocephin and doxycycline. CTA chest, abdomen pelvis and face were without evidence of infection. UA appears contaminated Patient did have dental cleaning yesterday and fever may be secondary to gingival inflammation versus bacteremia. 10/22/2019 Afebrile since admission, leukocytosis resolved Urine culture: Pending Blood cultures: Gram-negative bacilli 1 out of 2 bottles COVID test negative Lyme screen negative Currently focus of infection is possible gram-negative bacilli bacteremia , odontogenic infection Continue cefepime IV, and clindamycin p.o. Follow-up urine and blood cultures Will need urgent reevaluation by dental service for possible tooth extraction (3) Hypomagnesemia: Please then resolved (4) Paroxysmal a-fib: Rate and rhythm control with metoprolol and diltiazem Continue apixaban for stroke prophylaxis (5) COPD, severe: On 2 L of O2 at bedtime Chest x-ray clear No signs of acute exacerbation Continue usual prednisone (6) Prediabetes: Last A1c 6.2 09/2019 NovoLog per protocol Hold metformin (7) HTN (hypertension): Controlled, continue Toprol and diltiazem (8) Nocturnal hypoxemia: Chronically on 2 L at bedtime (9) GERD (gastroesophageal reflux disease): Continue PPI (10) DVT prophylaxis: Continue apixaban Disposition: Anticipate discharge to home medically stable Follow-up: PCP Dr. Torre upon discharge Admission and Anticipated Discharge Date Admission Date: October 21, 2019 Subjective Follow-up for fever Seen resting in bed, comfortable, not in distress, in good spirits, oriented x3 Patient feels improved today compared to yesterday More energy, denies chills Reports tooth ache on the right mandibular tooth No trismus, no dysphagia, no odynophagia Denies shortness of breath, cough, sputum production, abdominal pain, problems urination or bowel movement No other symptoms Review of Systems Review of Systems: All systems reviewed & are unremarkable except as noted in HPI & below Physical Exam Physical Exam: General- oriented x 3, not in distress, speaks in sentences with no effort or accessory muscle use Head- atraumatic Eyes- PERRL, EOMI, anicteric ENT- oropharynx clear Positive poor dentition, no gingival swelling or discharge Neck- supple, no JVD, no adenopathy, no thyromegaly; carotids +2/2, no bruits appreciated Lungs- clear to auscultation bilaterally, no rales/wheezes Heart- normal rate, regular rhythm; no murmur, no gallop, no rub appreciated Abdomen- normal bowel sounds, nondistended, soft, nontender, no masses or hepatosplenomegaly Extremities- no pretibial edema, no calf tenderness; peripheral pulses intact Neuro- alert, oriented x 3; CN 2-12 grossly intact; motor 5/5 bilaterally;sensation 100% on all extremities; no other gross focal neurologic deficits Skin- warm & dry Results & Data Results & Data ([facility]) Vital Signs (Past 12 Hours) Vital Signs Temp Pulse Pulse Resp BP Pulse Ox 10/22/19 19:30 78 16 96 10/22/19 16:00 66 10/22/19 15:24 37.0 C 65 18 118/59 L 95 10/22/19 11:25 37.0 C 62 18 114/57 L 94 Laboratory Results Laboratory Results - last 24 hr 10/21/19 10/21/19 10/22/19 19:32 21:35 06:48 WBC 6.19 RBC 3.92 L Hgb 9.1 L Hct 32.0 L MCV 81.6 MCH 23.2 L MCHC 28.4 L RDW Std Deviation 51.3 H RDW Coeff of Shahriar 17.0 H Plt Count 261 MPV 9.1 Immature Gran % (Auto) 0.3 Neut % (Auto) 88.5 Lymph % (Auto) 5.8 [place] % (Auto) 5.2 Eos % (Auto) 0.0 Baso % (Auto) 0.2 Neut # (Auto) 5.48 Lymph # (Auto) 0.36 L [place] # (Auto) 0.32 Eos # (Auto) 0.00 Baso # (Auto) 0.01 Immature Gran # (Auto) 0.02 Sodium Potassium Chloride Carbon Dioxide Anion Gap BUN Creatinine Est Cr Clr Drug Dosing Est GFR ( Amer) Est GFR (Non-Af Amer) BUN/Creatinine Ratio Glucose POC Glucose 166 H Calcium Magnesium Total Bilirubin AST ALT Alkaline Phosphatase Total Protein Albumin Globulin Albumin/Globulin Ratio Nasal Screen MRSA (PCR) Negative 10/22/19 10/22/19 10/22/19 06:48 07:35 11:36 WBC RBC Hgb Hct MCV MCH MCHC RDW Std Deviation RDW Coeff of Shahriar Plt Count MPV Immature Gran % (Auto) Neut % (Auto) Lymph % (Auto) [place] % (Auto) Eos % (Auto) Baso % (Auto) Neut # (Auto) Lymph # (Auto) [place] # (Auto) Eos # (Auto) Baso # (Auto) Immature Gran # (Auto) Sodium 138 Potassium 4.3 Chloride 105 Carbon Dioxide 28 Anion Gap 5.0 BUN 17 Creatinine 0.77 Est Cr Clr Drug Dosing 48.6 Est GFR ( Amer) 83.3 Est GFR (Non-Af Amer) 71.9 BUN/Creatinine Ratio 21.9 H Glucose 144 H POC Glucose 160 H 133 H Calcium 8.5 Magnesium 2.5 H Total Bilirubin 0.6 AST 21 ALT 27 Alkaline Phosphatase 55 Total Protein 6.7 Albumin 2.9 L Globulin 3.8 Albumin/Globulin Ratio 0.8 L Nasal Screen MRSA (PCR) 10/22/19 16:08 WBC RBC Hgb Hct MCV MCH MCHC RDW Std Deviation RDW Coeff of Shahriar Plt Count MPV Immature Gran % (Auto) Neut % (Auto) Lymph % (Auto) [place] % (Auto) Eos % (Auto) Baso % (Auto) Neut # (Auto) Lymph # (Auto) [place] # (Auto) Eos # (Auto) Baso # (Auto) Immature Gran # (Auto) Sodium Potassium Chloride Carbon Dioxide Anion Gap BUN Creatinine Est Cr Clr Drug Dosing Est GFR ( Amer) Est GFR (Non-Af Amer) BUN/Creatinine Ratio Glucose POC Glucose 172 H Calcium Magnesium Total Bilirubin AST ALT Alkaline Phosphatase Total Protein Albumin Globulin Albumin/Globulin Ratio Nasal Screen MRSA (PCR) (1) Fever Fever type: unspecified Qualified Code(s): R50.9 - Fever, unspecified
[2019-10-22] MEDS: PANTOprazole 40 MG TAB PO SCH (20:34)
[2019-10-22] MEDS: DICLOFENAC SOD 1% GEL 100 GM TUBE EXT SCH (21:57)
[2019-10-23] MEDS: CLINDAMYCIN HCL 150 MG CAP PO SCH ×2 (02:21→08:51)
[2019-10-23] MEDS: BUDESONIDE 0.5 MG/2 ML VIAL (PULMICORT) INH SCH ×2 (06:07→19:18)
[2019-10-23] MEDS: ALBUT/IPRATROP 3MG/0.5MG NEB 3 ML VIAL NEB SCH (06:07)
[2019-10-23] MEDS ORDERED: ALBUT/IPRATROP 3MG/0.5MG NEB 3 ML VIAL NEB PRN (06:21)
--- NOTE | 2019-10-23 06:25 | Communication Note ---
Date of Service: October 23, 2019
[2019-10-23] MEDS ORDERED: FUROSEMIDE 20 MG in SYRINGE 0 ML IV ONE (06:45)
[2019-10-23] MEDS ORDERED: predniSONE 10 MG TABLET PO SCH (06:45)
--- NOTE | 2019-10-23 07:15 | XRay Report ---
XR chest 1V portable CLINICAL HISTORY: sob dyspnea COMPARISON STUDY: 10/21/2019 FINDINGS: Possible developing left basilar infiltrate. Interval small left effusion. Pre-existing small right effusion considered unchanged. Probable calcified breast implant considered collapsed report overlying the right base. The upper lungs are clear. IMPRESSION: 1. Interval developing parenchymal infiltrate and effusion left lung base. 2. Small pre-existing right pleural effusion. ACT 112: Negative or not required by law. The above report was generated using voice recognition software. It may contain grammatical, syntax or spelling errors. Electronically signed by: Rojelio Sorto M.D. 10/23/2019 7:13 AM
[2019-10-23 07:55] LABS: Blood Urea Nitrogen 20 mg/dl (7-18); Calcium 8.5 mg/dl (8.5-10.1); Carbon Dioxide 28 mmol/L (21-32); Chloride 106 mmol/L (98-107); Creatinine Clr Calc Pharmacy 43.6 ml/min; Est GFR (African American) 72.9; Est GFR (Non-African American) 62.9; Glucose 118 mg/dl (70-99); Potassium 3.9 mmol/L (3.5-5.1); Sodium 139 mmol/L (136-145)
[2019-10-23 07:59] LABS: Base Excess ABG 5.6 mEq/L (-9-1.8); HCO3 ABG 30 mmol/L (19-24); Oxygen Saturation ABG 95.6 % (90-95); PCO2 ABG 42 mmHg (35-46); PO2 ABG 74 mmHg (80-95); pH ABG 7.47 (7.35-7.45)
[2019-10-23 08:00] LABS: Troponin I < 0.015 ng/ml (0-0.045)
[2019-10-23 08:02] LABS: Allen Test Pos (Pos)
[2019-10-23 08:05] LABS: Basophils # (auto) 0.03 K/uL (0-0.2); Basophils % (auto) 0.3 %; Eosinophils # (auto) 0.09 K/uL (0-0.5); Eosinophils % (auto) 0.8 %; Hematocrit (blood only) 30.9 % (37-47); Hemoglobin 8.6 g/dL (12.0-16.0); Immature Granulocytes # (auto) 0.04 K/uL (0.00-0.02); Immature Granulocytes % (auto) 0.3 %; Lymphocytes # (auto) 0.96 K/uL (1.2-3.4); Lymphocytes % (auto) 8.3 %; Mean Corpuscular Hemoglobin 22.6 pg (25-34); Mean Corpuscular Hgb Conc 27.8 g/dL (32-36); Mean Corpuscular Volume 81.3 fL (80-100); Monocytes # (auto) 0.98 K/uL (0.11-0.59); Monocytes % (auto) 8.5 %; Neutrophils # (auto) 9.48 K/uL (1.4-6.5); Neutrophils % (auto) 81.8 %; Platelet Count 254 K/uL (130-400); RDW Coefficient of Variation 17.2 % (11.5-14.5); RDW Standard Deviation 51.5 fL (36.4-46.3); White Blood Count 11.58 K/uL (4.8-10.8)
[2019-10-23 08:07] LABS: Partial Thromboplastin Ratio 0.9; Partial Thromboplastin Time 26.5 Seconds (21.0-31.0)
[2019-10-23] MEDS: APIXABAN 2.5 MG TAB PO SCH ×2 (08:51→20:49)
[2019-10-23] MEDS: DOCUSATE SODIUM 100 MG CAP PO SCH ×2 (08:51→20:48)
[2019-10-23] MEDS: CHOLECALCIFEROL 1,000 UNITS 25 MCG TAB PO SCH (08:52)
[2019-10-23] MEDS: SENNA 8.6 MG TAB PO SCH (08:53)
[2019-10-23] MEDS: METOPROLOL SUCC 50MG EXT REL TAB PO SCH (08:54)
[2019-10-23] MEDS: MONTELUKAST SODIUM 10 MG TABLET PO SCH (08:54)
[2019-10-23] MEDS: dilTIAZem HCL 240 MG CAPCR PO SCH (08:55)
[2019-10-23] MEDS: SERTRALINE HCL 50 MG TABLET PO SCH (08:55)
[2019-10-23] MEDS: POLYETHYLENE (MIRALAX) 17 GM PACK PO SCH (08:56)
[2019-10-23] MEDS: DICLOFENAC SOD 1% GEL 100 GM TUBE EXT SCH ×2 (08:56→20:50)
[2019-10-23] MEDS: INSULIN ASPART 100 UNITS/ML 3 ML PEN SC SCH ×4 (09:02→20:51)
--- NOTE | 2019-10-23 10:03 | CT Scan Report ---
CT chest wo con CT DOSE: 430.70 mGycm HISTORY: Shortness of breath. Dyspnea. Abnormal chest x-ray. r/o pneumonia TECHNIQUE: Multiaxial CT images of the chest were performed without contrast. A dose lowering techni que was utilized adhering to the principles of ALARA. COMPARISON: Chest CT 10/21/2019. FINDINGS: Incidental note is made of a partially visualized right glenohumeral joint effusion. Mild d ilatation of the ascending aorta is unchanged. There is moderate cardiomegaly. Moderate coronary rajat ry calcification is noted. Right hemithorax volume loss is unchanged. Right basilar pleural calcifica tion is unchanged. Old right-sided rib deformities are noted. Groundglass airspace opacities within t he left lower lobe with consolidation at the base of the left lower lobe and a trace left pleural eff usion. This is new from the prior study and favors a combination of pneumonia and atelectasis. A few small pulmonary nodules are unchanged since prior examination. The central airways are patent. There is no pneumothorax. Right apical pleural-parenchymal scarring remains unchanged. Upper abdomen is unr emarkable. IMPRESSION: 1. Groundglass airspace opacities within the left lower lobe with consolidation at the base of the le ft lower lobe and a trace left pleural effusion. This is new from the prior study and favors a combin ation of pneumonia and atelectasis. 2. Stable chronic changes within the right hemithorax. ACT 112: Negative or not required by law. Electronically signed by: Wenceslao Richardson M.D. 10/23/2019 10:02 AM
[2019-10-23] MEDS: CEFEPIME 2,000 MG in SYRINGE 7.5 ML IV SCH ×2 (10:48→22:51)
[2019-10-23] MEDS ORDERED: XOPENEX/ATROVENT 1.25mg/0.5MG NEB COMBO NEB SCH (10:50)
--- NOTE | 2019-10-23 10:51 | Hospitalist Progress Note ---
Date of Service October 23, 2019 Assessment & Plan (1) SIRS (systemic inflammatory response syndrome): (2) Fever: Per admitting service notes: This is an 84-year-old female who has significant past medical history of COPD on 2 L of O2 at at bedtime, bronchiectasis, PAF anticoagulated on apixaban, T2DM, HTN, HLD, osteoporosis, spinal stenosis who presents to ED secondary to fever and ill feeling x1 day. Pt meets SIRS criteria per current CMS guidelines 2/2 to fever and tachypnea. Lactic acid WNL, procalcitonin mildly elevated. Received broad-spectrum IV antibiotics while in ED IV Rocephin and doxycycline. CTA chest, abdomen pelvis and face were without evidence of infection. UA appears contaminated Patient did have dental cleaning yesterday and fever may be secondary to gingival inflammation versus bacteremia. 10/23/2019 Afebrile since admission, leukocytosis resolved; however patient reported shortness of breath, currently on 2 L of O2 via nasal cannula CT chest: 1. Groundglass airspace opacities within the left lower lobe with consolidation at the base of the left lower lobe and a trace left pleural effusion. This is new from the prior study and favors a combination of pneumonia and atelectasis. 2. Stable chronic changes within the right hemithorax. Blood cultures: Klebsiella 1 out of 2 bottles COVID test negative Lyme screen negative Start doxycycline for atypical coverage Continue cefepime IV DC clindamycin Will need urgent reevaluation by dental service for possible tooth extraction (3) COPD with exacerbation: Bronchiectasis, on chronic prednisone Start Solu-Medrol 40 mg twice daily Nebs every 6 hours Cefepime plus doxycycline Monitor closely (4) Hypomagnesemia: Replaced, resolved (5) Paroxysmal a-fib: Rate and rhythm control with metoprolol and diltiazem Continue apixaban for stroke prophylaxis (6) COPD, severe: Management noted above (7) Prediabetes: Last A1c 6.2 09/2019 NovoLog per protocol Hold metformin (8) HTN (hypertension): Controlled, continue Toprol and diltiazem (9) Nocturnal hypoxemia: Chronically on 2 L at bedtime (10) GERD (gastroesophageal reflux disease): Continue PPI (11) DVT prophylaxis: Continue apixaban Disposition: Anticipate discharge to home medically stable Follow-up: PCP Dr. Torre upon discharge Admission and Anticipated Discharge Date Admission Date: October 21, 2019 Subjective Follow-up for fever, bacteremia, pneumonia Overnight patient developed shortness of breath, chest x-ray showing possible pneumonia Seen resting in bed, comfortable not in distress, appears somewhat weak today On 2 L of oxygen via nasal cannula States she feels off today, weak, short of breath but improved with 2 L of oxygen via nasal cannula Also has been having coughing spells, with yellow sputum No chest pain, abdominal pain, nausea vomiting, problems with urination or bowel movement No other symptoms Review of Systems Review of Systems: All systems reviewed & are unremarkable except as noted in HPI & below Physical Exam Physical Exam: General- oriented x 3, not in distress, speaks in sentences with no effort or accessory muscle use Eyes- anicteric Neck- no JVD Lungs-diminished breath sounds at the bases, no wheezing, no crackles Heart- normal rate, regular rhythm; no murmurs Abdomen- normal bowel sounds, nondistended, soft, nontender Extremities- no pretibial edema, no calf tenderness Neuro- alert, oriented x 3; no gross focal neurologic deficits Skin- warm & dry Results & Data Results & Data ([facility]) Vital Signs (Past 12 Hours) Vital Signs Temp Pulse Pulse Resp BP BP Pulse Ox 10/23/19 07:56 37.0 C 71 18 146/58 H 94 10/23/19 07:21 74 10/23/19 06:09 77 24 95 10/23/19 03:00 36.6 C 80 20 128/72 94 10/23/19 02:56 73 10/22/19 23:00 36.7 C 67 20 157/66 H 97 Laboratory Results Laboratory Results - last 24 hr 10/22/19 10/23/19 10/23/19 20:27 07:06 07:06 WBC RBC Hgb Hct MCV MCH MCHC RDW Std Deviation RDW Coeff of Shahriar Plt Count MPV Immature Gran % (Auto) Neut % (Auto) Lymph % (Auto) [place] % (Auto) Eos % (Auto) Baso % (Auto) Neut # (Auto) Lymph # (Auto) [place] # (Auto) Eos # (Auto) Baso # (Auto) Immature Gran # (Auto) APTT PTT Ratio ABG pH Cancelled ABG pCO2 Cancelled ABG pO2 Cancelled ABG HCO3 Cancelled ABG O2 Saturation Cancelled ABG Base Excess Cancelled Brien Test Cancelled Barometric Pressure Cancelled Oxygen Given Cancelled Sodium 139 Potassium 3.9 Chloride 106 Carbon Dioxide 28 Anion Gap 5.0 BUN 20 H Creatinine 0.86 Est Cr Clr Drug Dosing 43.6 Est GFR ( Amer) 72.9 Est GFR (Non-Af Amer) 62.9 BUN/Creatinine Ratio 23.0 H Glucose 118 H POC Glucose 144 H Calcium 8.5 Magnesium 2.0 Troponin I < 0.015 10/23/19 10/23/19 10/23/19 07:33 07:38 07:38 WBC 11.58 H RBC 3.80 L Hgb 8.6 L Hct 30.9 L MCV 81.3 MCH 22.6 L MCHC 27.8 L RDW Std Deviation 51.5 H RDW Coeff of Shahriar 17.2 H Plt Count 254 MPV 9.0 Immature Gran % (Auto) 0.3 Neut % (Auto) 81.8 Lymph % (Auto) 8.3 [place] % (Auto) 8.5 Eos % (Auto) 0.8 Baso % (Auto) 0.3 Neut # (Auto) 9.48 H Lymph # (Auto) 0.96 L [place] # (Auto) 0.98 H Eos # (Auto) 0.09 Baso # (Auto) 0.03 Immature Gran # (Auto) 0.04 H APTT 26.5 PTT Ratio 0.9 ABG pH ABG pCO2 ABG pO2 ABG HCO3 ABG O2 Saturation ABG Base Excess Brien Test Barometric Pressure Oxygen Given Sodium Potassium Chloride Carbon Dioxide Anion Gap BUN Creatinine Est Cr Clr Drug Dosing Est GFR ( Amer) Est GFR (Non-Af Amer) BUN/Creatinine Ratio Glucose POC Glucose 128 H Calcium Magnesium Troponin I 10/23/19 10/23/19 10/23/19 07:44 11:47 16:25 WBC RBC Hgb Hct MCV MCH MCHC RDW Std Deviation RDW Coeff of Shahriar Plt Count MPV Immature Gran % (Auto) Neut % (Auto) Lymph % (Auto) [place] % (Auto) Eos % (Auto) Baso % (Auto) Neut # (Auto) Lymph # (Auto) [place] # (Auto) Eos # (Auto) Baso # (Auto) Immature Gran # (Auto) APTT PTT Ratio ABG pH 7.47 H ABG pCO2 42 ABG pO2 74 L ABG HCO3 30 H ABG O2 Saturation 95.6 H ABG Base Excess 5.6 H Brien Test Pos Barometric Pressure 731.2 Oxygen Given 2L Sodium Potassium Chloride Carbon Dioxide Anion Gap BUN Creatinine Est Cr Clr Drug Dosing Est GFR ( Amer) Est GFR (Non-Af Amer) BUN/Creatinine Ratio Glucose POC Glucose 124 H 238 H Calcium Magnesium Troponin I (1) Fever Fever type: unspecified Qualified Code(s): R50.9 - Fever, unspecified
[2019-10-23] MEDS: DOXYCYCLINE HYCLATE 100 MG CAP PO SCH ×2 (13:05→20:47)
[2019-10-23] MEDS: methylPREDNISolone 40 MG in SYRINGE 0 ML IV SCH ×2 (13:05→20:47)
[2019-10-23] MEDS: LACTOBACILLUS ACIDOPHILUS (FLORANEX) TAB PO SCH ×3 (13:06→20:48)
[2019-10-23] MEDS: IPRATROPIUM BROMIDE NEB SOLN 0.02% 2.5 ML VIAL INH SCH ×2 (13:49→19:18)
[2019-10-23] MEDS: LEVALBUTEROL 1.25MG/0.5ML NEB INH SCH ×2 (13:51→19:18)
[2019-10-23] MEDS ORDERED: METOPROLOL TARTRATE 1 MG/ML VIAL IV PRN (18:13)
[2019-10-23] MEDS ORDERED: METOPROLOL TARTRATE 1 MG/ML VIAL IV ONE (18:17)
[2019-10-23] MEDS: PANTOprazole 40 MG TAB PO SCH (20:50)
[2019-10-24] MEDS: IPRATROPIUM BROMIDE NEB SOLN 0.02% 2.5 ML VIAL INH SCH ×4 (00:27→19:28)
[2019-10-24] MEDS: LEVALBUTEROL 1.25MG/0.5ML NEB INH SCH ×4 (00:28→19:26)
[2019-10-24] MEDS: BUDESONIDE 0.5 MG/2 ML VIAL (PULMICORT) INH SCH ×2 (07:13→19:26)
[2019-10-24] MEDS: INSULIN ASPART 100 UNITS/ML 3 ML PEN SC SCH ×4 (08:01→20:25)
[2019-10-24] MEDS: methylPREDNISolone 40 MG in SYRINGE 0 ML IV SCH (08:03)
[2019-10-24] MEDS: METOPROLOL SUCC 50MG EXT REL TAB PO SCH (08:03)
[2019-10-24] MEDS: SERTRALINE HCL 50 MG TABLET PO SCH (08:03)
[2019-10-24] MEDS: APIXABAN 2.5 MG TAB PO SCH ×2 (08:03→20:03)
[2019-10-24] MEDS: MONTELUKAST SODIUM 10 MG TABLET PO SCH (08:03)
[2019-10-24] MEDS: CHOLECALCIFEROL 1,000 UNITS 25 MCG TAB PO SCH (08:04)
[2019-10-24] MEDS: dilTIAZem HCL 240 MG CAPCR PO SCH (08:04)
[2019-10-24] MEDS: LACTOBACILLUS ACIDOPHILUS (FLORANEX) TAB PO SCH ×4 (08:04→20:03)
[2019-10-24] MEDS: POLYETHYLENE (MIRALAX) 17 GM PACK PO SCH (08:05)
[2019-10-24] MEDS: DOCUSATE SODIUM 100 MG CAP PO SCH ×2 (08:05→20:04)
[2019-10-24] MEDS: DOXYCYCLINE HYCLATE 100 MG CAP PO SCH ×2 (08:05→20:04)
[2019-10-24] MEDS: DICLOFENAC SOD 1% GEL 100 GM TUBE EXT SCH ×2 (08:05→20:14)
[2019-10-24] MEDS ORDERED: PHARMACY GLYCEMIC MGMT CONSULT PRN (09:29)
[2019-10-24] MEDS ORDERED: INSULIN GLARGINE SOLOSTAR 100 UNITS/ML 3 ML PEN SC ONE (09:45)
--- NOTE | 2019-10-24 10:15 | Hospitalist Progress Note ---
Date of Service October 24, 2019 Assessment & Plan (1) SIRS (systemic inflammatory response syndrome): (2) Fever: Per admitting service notes: This is an 84-year-old female who has significant past medical history of COPD on 2 L of O2 at at bedtime, bronchiectasis, PAF anticoagulated on apixaban, T2DM, HTN, HLD, osteoporosis, spinal stenosis who presents to ED secondary to fever and ill feeling x1 day. Pt meets SIRS criteria per current CMS guidelines 2/2 to fever and tachypnea. Lactic acid WNL, procalcitonin mildly elevated. Received broad-spectrum IV antibiotics while in ED IV Rocephin and doxycycline. CTA chest, abdomen pelvis and face were without evidence of infection. UA appears contaminated Patient did have dental cleaning yesterday and fever may be secondary to gingival inflammation versus bacteremia. 10/24/2019 Afebrile since admission, leukocytosis resolved; however patient reported shortness of breath, currently on 2 L of O2 via nasal cannula CT chest: 1. Groundglass airspace opacities within the left lower lobe with consolidation at the base of the left lower lobe and a trace left pleural effusion. This is new from the prior study and favors a combination of pneumonia and atelectasis. 2. Stable chronic changes within the right hemithorax. Blood cultures: Klebsiella 1 out of 2 bottles COVID test negative Lyme screen negative improving, off o2 supplement continue Cefepime + Doxycycline continue Nebs, change solumedrol to prednisone ff up sputum cultures management of a fib noted below Will need urgent reevaluation by dental service for possible tooth extraction (3) COPD with exacerbation: management per above (4) Hypomagnesemia: Replaced, resolved (5) Paroxysmal a-fib: (+) RVR likely secondary to pneumonia with bacteremia, mild copd exacerbation on Metoprolol and Diltiazem PO will consult Cardiology Continue apixaban for stroke prophylaxis (6) COPD, severe: Management noted above (7) Prediabetes: Last A1c 6.2 09/2019 NovoLog per protocol Hold metformin -- consult pharmacy glycemic consult (8) HTN (hypertension): Controlled, continue Toprol and diltiazem (9) Nocturnal hypoxemia: Chronically on 2 L at bedtime (10) GERD (gastroesophageal reflux disease): Continue PPI (11) DVT prophylaxis: Continue apixaban Disposition: Anticipate discharge to home medically stable Follow-up: PCP Dr. Torre upon discharge Admission and Anticipated Discharge Date Admission Date: October 21, 2019 Subjective seen resting bedside chair, comfortable off o2 supplement brighter, in better spirits states she feels better today no dyspnea, still has cough with yellow sputum no chest pain, palpitations, dizziness no other symptoms Review of Systems Review of Systems: All systems reviewed & are unremarkable except as noted in HPI & below Physical Exam Physical Exam: General- oriented x 3, not in distress, speaks in sentences with no effort or accessory muscle use Eyes- anicteric Neck- no JVD Lungs- mild crackles left base, no wheezing Heart-tachycardic, irregularly irregular rhythm; no murmurs Abdomen- normal bowel sounds, nondistended, soft, nontender Extremities- no pretibial edema, no calf tenderness Neuro- alert, oriented x 3; no gross focal neurologic deficits Skin- warm & dry Results & Data Results & Data ([facility]) Vital Signs (Past 12 Hours) Vital Signs Temp Pulse Resp BP BP Pulse Ox 10/24/19 07:14 103 H 20 93 10/24/19 07:00 36.7 C 95 H 20 102/62 100 10/24/19 04:00 36.7 C 104 H 20 104/67 96 10/24/19 00:28 100 H 18 95 10/23/19 23:28 36.8 C 112 H 20 122/65 96 (1) Fever Fever type: unspecified Qualified Code(s): R50.9 - Fever, unspecified
[2019-10-24] MEDS: CEFEPIME 2,000 MG in SYRINGE 7.5 ML IV SCH ×2 (10:21→21:47)
[2019-10-24] MEDS ORDERED: PHARMACY GLYCEMIC MGMT CONSULT STA (10:25)
[2019-10-24 10:26] LABS: BUN Creatinine Ratio 20.1 (10-20); Basophils # (auto) 0.01 K/uL (0-0.2); Basophils % (auto) 0.1 %; Calcium 8.9 mg/dl (8.5-10.1); Creatinine Clr Calc Pharmacy 30.2 ml/min; Est GFR (African American) 46.8; Est GFR (Non-African American) 40.4; Hematocrit (blood only) 32.6 % (37-47); Hemoglobin 9.2 g/dL (12.0-16.0); Immature Granulocytes # (auto) 0.03 K/uL (0.00-0.02); Immature Granulocytes % (auto) 0.3 %; Lymphocytes # (auto) 0.36 K/uL (1.2-3.4); Lymphocytes % (auto) 3.2 %; Mean Corpuscular Hemoglobin 23.1 pg (25-34); Mean Corpuscular Hgb Conc 28.2 g/dL (32-36); Mean Corpuscular Volume 81.7 fL (80-100); Mean Platelet Volume 9.7 fL (7.4-10.4); Monocytes # (auto) 0.65 K/uL (0.11-0.59); Monocytes % (auto) 5.8 %; Neutrophils # (auto) 10.24 K/uL (1.4-6.5); Neutrophils % (auto) 90.6 %; Platelet Count 323 K/uL (130-400); Potassium 4.2 mmol/L (3.5-5.1); RDW Coefficient of Variation 17.3 % (11.5-14.5); RDW Standard Deviation 52.2 fL (36.4-46.3); Red Blood Count 3.99 M/uL (4.2-5.4); White Blood Count 11.29 K/uL (4.8-10.8)
--- NOTE | 2019-10-24 11:26 | Cardiology Consultation ---
Date of Consultation October 24, 2019 Assessment & Plan (1) Paroxysmal a-fib: (2) Left lower lobe pneumonia: (3) Klebsiella pneumoniae sepsis: 84-year-old female admitted with Klebsiella pneumonia and bacteremia. Converted to atrial fibrillation with rapid ventricular response 10/23/2019. Essentially asymptomatic with intermittent palpitations and occasional chest heaviness. ECG demonstrates lateral ST depressions with rapid ventricular response likely representing underlying demand ischemia in the setting of pneumonia, anemia, and rapid atrial fibrillation. Most recent Lexiscan nuclear stress test performed in 2013 negative for inducible ischemia. Recommend rate control at this time. Initiate IV diltiazem 5 mg/h without bolus. Continue oral diltiazem 240 mg daily. Toprol-XL will be discontinued in favor of short acting metoprolol tartrate. Dose of beta-dary will be titr ated to 75 mg in divided doses, 25 mg 3 times daily. Continue Eliquis for anticoagulation. Encourage oral intake and hydration. Mild elevation of creatinine this a.m. possibly related to new onset atrial fibrillation with rapid ventricular response and borderline transient hypotension. Repeat basic metabolic panel in a.m. Thank you for allowing me to participate in the care of your patient. I will continue to follow closely during hospitalization. History of Present Illness Reason for Consultation: Paroxysmal atrial fibrillation with rapid ventricular response Requesting Physician: Dr. Tatum Attending Physician: Jose Tatum MD History of Present Illness 84-year-old female admitted with fever, sepsis, pneumonia, and Klebsiella bacteremia.Carries history of paroxysmal atrial fibrillation on chronic anticoagulation with Eliquis. Most recently evaluated by the undersigned 10/2018. Patient reports feeling generally unwell prior to admission without specific complaints. Slowly improving during hospitalization with medical therapy until yesterday at 4 PM where she converted to atrial fibrillation with rapid ventricular response. Notes palpitations and chest heaviness intermittently. Currently resting comfortably. Consumed her midday meal. Denies abdominal discomfort, nausea, or diarrhea. Telemetry currently reveals atrial fibrillation at a heart rate of 120 bpm. Allergies Allergy/AdvReac Type Severity Reaction Status Date / Time Cipro Allergy Intermediate hives, Verified 04/25/17 06:31 itching ciprofloxacin Allergy Intermediate hives, Verified 10/21/19 15:50 itching amoxicillin Allergy Mild Itching Verified 10/21/19 15:49 clavulanic acid Allergy Mild Itching Verified 10/21/19 15:49 alendronate sodium AdvReac Intermediate feet and Verified 10/21/19 15:49 hand pain levofloxacin AdvReac Intermediate muscle pain Verified 10/21/19 15:49 Home Medications Home Medications Medication Instructions Recorded Confirmed Type albuterol sulfate [ProAir HFA] 2 puff INHALATION Q4H PRN 07/30/18 10/21/19 History budesonide 0.5 mg INHALATION BID 07/30/18 10/21/19 History cholecalciferol (vitamin D3) 5,000 unit PO QAM 07/30/18 10/21/19 History [Vitamin D3] diltiazem HCl 240 mg PO QAM 07/30/18 10/21/19 History docusate sodium [Colace] 100 mg PO BID 07/30/18 10/21/19 History doxycycline hyclate 100 mg PO BID PRN 07/30/18 10/21/19 History furosemide [Lasix] 20 mg PO DAILY PRN 07/30/18 10/21/19 History metformin 1,000 mg PO BID 07/30/18 10/21/19 History metoprolol succinate [Toprol XL] 50 mg PO QAM 07/30/18 10/21/19 History prednisone 10 mg PO QAM 07/30/18 10/21/19 History sennosides [Senokot] 8.6 mg PO QDL 07/30/18 10/21/19 History sertraline [Zoloft] 50 mg PO QAM 07/30/18 10/21/19 History tramadol 50 mg PO Q6 PRN 07/30/18 10/21/19 History montelukast [Singulair] 10 mg PO QAM 02/08/19 10/21/19 History omeprazole 20 mg PO HS 05/05/19 10/21/19 History nitrofurantoin monohyd/m-cryst 100 mg PO DAILY PRN 06/23/19 10/21/19 History ondansetron 4 mg PO Q8H PRN 06/23/19 10/21/19 History apixaban [Eliquis] 2.5 mg PO BID 10/21/19 10/21/19 History ipratropium-albuterol 3 ml INHALATION Q6 10/21/19 10/21/19 History polyethylene glycol 3350 [Miralax] 17 g PO DAILY 10/21/19 10/21/19 History Patient History Medical History Arthritis (Chronic) Bronchiectasis (Chronic) COPD, severe (Chronic) GERD (gastroesophageal reflux disease) (Chronic) HTN (hypertension) (Chronic) Hyperlipidemia (Chronic) "statin intolerance" Nocturnal hypoxemia (Chronic) Paroxysmal a-fib (Chronic) Pneumonia (Inactive) Pulmonary hypertension (Chronic) SBO (small bowel obstruction) (Chronic) Shortness of breath Spinal stenosis (Chronic) Surgical History H/O hernia repair (Chronic) H/O: hysterectomy (Chronic) History of cataract surgery (Chronic) History of cholecystectomy (Chronic) 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" Family History Mother Diabetes Father Lung disease Social History Preferred Language: British Communication Ability: Effective [place] Worker Required: No Beliefs That Will Affect Care: None marital status: / Current Living Situation: Alone current occupational status: retired Other Information That Helps Us Care for You: No Feels Safe at Home: Yes Safety Concerns: Feels Safe At This Time Smoking Status: Never smoker Hx Alcohol Use: No Hx Substance Use: No Review of Systems Review of Systems: All systems reviewed & are unremarkable except as noted in HPI & below Physical Exam Constitutional: well developed, + ill appearing and + thin; no acute distress Respiratory: Auscultation: + diminished lung sounds (Bases bilateral) and + crackles (Scant crackles at the left base); no rhonchi and no wheezes Cardiovascular: Rate/Rhythm: + tachycardic and + irregularly irregular Heart Sounds: normal S1 and normal S2; no murmur Vessels: radial pulses present; no JVD Extremities: no edema (Positive bilateral pretibial stasis changes) Gastrointestinal (Abdomen): Inspection/Auscultation: abdomen normal to inspection and normal bowel sounds; abdomen not distended Percussion/Palpation: abdomen soft; abdomen nontender, no guarding and abdomen not rigid Musculoskeletal: Extremities: + abnormal muscle tone; no cyanosis and no clubbing Skin: no rashes, warm and dry Neurologic: moves all extremities; no focal motor deficits Speech / Cognition: normal speech Motor/Sensory: no tremor Psychiatric: A+Ox3, euthymic affect Results & Data ([facility]) Vital Signs (Past 12 Hours) Vital Signs Temp Pulse Resp BP BP Pulse Ox 10/24/19 11:17 37.1 C 90 20 121/80 96 10/24/19 07:14 103 H 20 93 10/24/19 07:00 36.7 C 95 H 20 102/62 100 10/24/19 04:00 36.7 C 104 H 20 104/67 96 10/24/19 00:28 100 H 18 95 10/23/19 23:28 36.8 C 112 H 20 122/65 96
[2019-10-24] MEDS ORDERED: STAT IV Infusion **Titration per Protocol STA (11:52)
--- NOTE | 2019-10-24 12:13 | Pharmacy Report ---
Pharmacy Glycemic Short Note 2 - Date of Service October 24, 2019 - Glycemic Short BSG Results (Last 24 hours): 10/23/19 10/23/19 10/24/19 16:25 20:21 07:27 Glucose POC Glucose 238 H 233 H 200 H 10/24/19 10/24/19 09:32 11:40 Glucose 274 H POC Glucose 189 H OUTPATIENT ANTIDIABETIC REGIMEN: * Metformin 1 g PO BIDM * HbA1c: 6.4% (06/25/19) - recheck ordered for tomorrow morning ASSESSMENT: * NAMAN is an 84 year old female admitted for fever/SIRS - patient with 1 of 2 positive blood cultures for K. pneumoniae * Receiving cefepime and doxycycline currently * Patient received Solu-Medrol 40 mg IV q12h yesterday and this morning for COPD exacerbation * Subsequently changed to prednisone 20 mg PO BID starting this evening * BSGs elevated - most likely in light of steroids (ranging 124-238 mg/dL y ) * Pharmacy consulted this morning with BSG of 200 mg/dL * Bump in SCr noted today (0.86 -> 1.24 mg/dL) PLAN FOR INPATIENT GLYCEMIC CONTROL: * Hold outpatient oral diabetes medications * Basal insulin * Lantus 15 units x 1 given this morning to cover AM Solu-Medrol * Lantus scale with PM dose of prednisone (see EHR for details) * Bolus insulin - tighten * NovoLog per scale ACHS or Q6hrs while NPO * Goal Range: Low 110 mg/dL - High 140 mg/dL * Correction Factor: 45 mg/dL/unit * Nutritional / Prandial insulin per carb ratio of 1 unit per 15 grams CHO consumed PLAN FOR DISCHARGE: * Patient's A1c of 6.4% suggests good glycemic control * Reasonable to discharge with home regimen (metformin 1 g PO BIDM) assuming resolution of TAZ
[2019-10-24] MEDS: SENNA 8.6 MG TAB PO SCH (12:34)
[2019-10-24] MEDS: dilTIAZem HCL 125 MG in DEXTROSE 5% 100 ML IV SCH (13:27)
[2019-10-24] MEDS: METOPROLOL TARTRATE 25 MG TAB PO SCH ×2 (14:03→21:46)
--- NOTE | 2019-10-24 14:40 | Electrocardiogram Report ---
Test Reason : Blood Pressure : / mmHG Vent. Rate : 123 BPM Atrial Rate : 123 BPM P-R Int : 000 ms QRS Dur : 086 ms QT Int : 320 ms P-R-T Axes : 000 -06 142 degrees QTc Int : 458 ms Atrial fibrillation with rapid ventricular response Abnormal ECG When compared with ECG of 21-OCT-2019 14:36, Atrial fibrillation has replaced Sinus rhythm Nonspecific T wave abnormality now evident in Inferior leads T wave inversion now evident in Lateral leads Confirmed by Korey Henriquez ([id number]) on 10/24/2019 2:39:54 PM Referred By: REFERRED SELF Confirmed By:Korey Henriquez
[2019-10-24] MEDS: predniSONE 20 MG TAB PO SCH (20:03)
[2019-10-24] MEDS: PANTOprazole 40 MG TAB PO SCH (20:03)
[2019-10-24] MEDS ORDERED: INSULIN GLARGINE SOLOSTAR 100 UNITS/ML 3 ML PEN SC SCH (21:00)
[2019-10-25] MEDS: LEVALBUTEROL 1.25MG/0.5ML NEB INH SCH ×4 (01:16→19:33)
[2019-10-25] MEDS: IPRATROPIUM BROMIDE NEB SOLN 0.02% 2.5 ML VIAL INH SCH ×4 (01:16→19:33)
[2019-10-25] MEDS: dilTIAZem HCL 125 MG in DEXTROSE 5% 100 ML IV SCH (03:46)
[2019-10-25] MEDS: METOPROLOL TARTRATE 25 MG TAB PO SCH ×3 (05:47→22:17)
[2019-10-25 06:08] LABS: Basophils # (auto) 0.01 K/uL (0-0.2); Basophils % (auto) 0.1 %; Hemoglobin 8.6 g/dL (12.0-16.0); Immature Granulocytes # (auto) 0.06 K/uL (0.00-0.02); Immature Granulocytes % (auto) 0.4 %; Lymphocytes # (auto) 0.99 K/uL (1.2-3.4); Lymphocytes % (auto) 7.3 %; Mean Corpuscular Hemoglobin 23.4 pg (25-34); Mean Corpuscular Hgb Conc 29.7 g/dL (32-36); Mean Corpuscular Volume 78.8 fL (80-100); Mean Platelet Volume 9.7 fL (7.4-10.4); Monocytes # (auto) 1.04 K/uL (0.11-0.59); Monocytes % (auto) 7.7 %; Neutrophils # (auto) 11.42 K/uL (1.4-6.5); Neutrophils % (auto) 84.5 %; Platelet Count 296 K/uL (130-400); RDW Coefficient of Variation 17.3 % (11.5-14.5); RDW Standard Deviation 49.8 fL (36.4-46.3); Red Blood Count 3.68 M/uL (4.2-5.4); White Blood Count 13.52 K/uL (4.8-10.8)
[2019-10-25 06:37] LABS: BUN Creatinine Ratio 33.2 (10-20); Creatinine Clr Calc Pharmacy 44.6 ml/min; Est GFR (African American) 67.2; Potassium 4.2 mmol/L (3.5-5.1)
[2019-10-25] MEDS: BUDESONIDE 0.5 MG/2 ML VIAL (PULMICORT) INH SCH ×2 (07:11→19:33)
[2019-10-25] MEDS ORDERED: INSULIN GLARGINE SOLOSTAR 100 UNITS/ML 3 ML PEN SC SCH ×2 (09:00→21:00)
[2019-10-25] MEDS: LACTOBACILLUS ACIDOPHILUS (FLORANEX) TAB PO SCH ×4 (09:05→20:28)
[2019-10-25] MEDS: DOXYCYCLINE HYCLATE 100 MG CAP PO SCH ×2 (09:05→20:28)
[2019-10-25] MEDS: APIXABAN 2.5 MG TAB PO SCH ×2 (09:06→20:29)
[2019-10-25] MEDS: DOCUSATE SODIUM 100 MG CAP PO SCH ×2 (09:06→20:34)
[2019-10-25] MEDS: SERTRALINE HCL 50 MG TABLET PO SCH (09:06)
[2019-10-25] MEDS: MONTELUKAST SODIUM 10 MG TABLET PO SCH (09:06)
[2019-10-25] MEDS: CHOLECALCIFEROL 1,000 UNITS 25 MCG TAB PO SCH (09:06)
[2019-10-25] MEDS: predniSONE 20 MG TAB PO SCH ×2 (09:06→20:29)
[2019-10-25] MEDS: DICLOFENAC SOD 1% GEL 100 GM TUBE EXT SCH ×2 (09:07→20:34)
[2019-10-25] MEDS: POLYETHYLENE (MIRALAX) 17 GM PACK PO SCH (09:08)
[2019-10-25] MEDS: CEFEPIME 2,000 MG in SYRINGE 7.5 ML IV SCH ×2 (09:08→22:17)
[2019-10-25] MEDS: INSULIN ASPART 100 UNITS/ML 3 ML PEN SC SCH ×4 (09:09→20:41)
--- NOTE | 2019-10-25 10:34 | Cardiology Progress Note ---
Date of Service October 25, 2019 Assessment & Plan (1) Paroxysmal a-fib: (2) Left lower lobe pneumonia: (3) Klebsiella pneumoniae sepsis: Heart rate improving with addition of IV Cardizem. Restart Cardizem CD 240 mg daily. Patient will receive 1 dose now. Continue metoprolol 25 mg 3 times daily. Wean Cardizem drip as tolerated this afternoon. Continue anticoagulation with Eliquis. Patient may ultimately benefit from external direct-current cardioversion, however, the durable success of this procedure is questionable given her active pulmonary issues at this time. Continue rate control strategy currently. Ultimately will discuss potential external direct-current cardioversion after her pulmonary issues have resolved, however, this may be in 2 to 4 weeks in the outpatient setting. I will consider an urgent inpatient cardioversion if heart rates are difficult to control desp ite medical therapy. Subjective Patient seen and examined the bedside. Heart rate improved with addition of IV Cardizem. Remains in atrial fibrillation with a heart rate of 75 to 90 bpm. Denies palpitations or recurrent chest heaviness overnight. Continues to cough without sputum production. End expiratory wheezing persists. No orthopnea, par oxysmal nocturnal dyspnea, or lower extremity edema. No signs/symptoms of GI/ blood loss. Offers no other concerns/complaints this time. Review of Systems Review of Systems: All systems reviewed & are unremarkable except as noted in HPI & below Physical Exam Constitutional: well developed, + ill appearing and + thin; no acute distress Respiratory: Auscultation: + diminished lung sounds (Bases bilateral), + crackles (Scant crackles at the left base) and + wheezes (Bilateral end expiratory wheezing); no rhonchi Cardiovascular: Rate/Rhythm: + irregularly irregular Heart Sounds: normal S1 and normal S2; no murmur Vessels: radial pulses present; no JVD Extremities: no edema (Positive bilateral pretibial stasis changes) Gastrointestinal (Abdomen): Inspection/Auscultation: abdomen normal to inspection and normal bowel sounds; abdomen not distended Percussion/Palpation: abdomen soft; abdomen nontender, no guarding and abdomen not rigid Musculoskeletal: Extremities: + abnormal muscle tone; no cyanosis and no clubbing Skin: no rashes, warm and dry Neurologic: moves all extremities; no focal motor deficits Speech / Cognition: normal speech Motor/Sensory: no tremor Psychiatric: A+Ox3, euthymic affect Results & Data Vital Signs (Past 12 Hours) Vital Signs Temp Pulse Pulse Pulse Resp BP Pulse Ox 10/25/19 07:11 71 18 98 10/25/19 05:58 77 14 134/87 10/25/19 05:00 82 22 10/25/19 04:14 88 22 144/71 H 10/25/19 04:00 36.6 C 86 21 97 10/25/19 03:44 70 22 119/61 10/25/19 03:14 77 22 105/58 L 10/25/19 02:44 82 20 121/72 10/25/19 02:14 70 23 115/78 10/25/19 01:44 83 17 133/82 10/25/19 01:17 92 H 16 96 10/25/19 01:13 73 20 126/83 10/25/19 00:44 73 23 128/71 10/25/19 00:14 79 21 128/75 10/25/19 00:00 36.8 C 71 20 98 10/24/19 23:43 82 23 139/79 10/24/19 23:14 83 18 131/75 10/24/19 22:44 83 18 126/77
--- NOTE | 2019-10-25 10:37 | Pharmacy Report ---
Pharmacy Glycemic Short Note 2 - Date of Service October 25, 2019 - Glycemic Short BSG Results (Last 24 hours): 10/24/19 10/24/19 10/24/19 11:40 16:23 20:22 Glucose POC Glucose 189 H 162 H 146 H 10/25/19 10/25/19 10/25/19 05:47 05:54 07:41 Glucose 157 H POC Glucose 166 H 140 H OUTPATIENT ANTIDIABETIC REGIMEN: * Metformin 1 g PO BIDM * HbA1c: 6.4% (06/25/19) - recheck ordered and pending ASSESSMENT: * NAMAN is an 84 year old female admitted for fever/SIRS - patient with 1 of 2 positive blood cultures for K. pneumoniae * Receiving cefepime and doxycycline currently * Currently receiving prednisone 20 mg PO BID starting yesterday evening * BSGs improved throughout the day yesterday * Patient received 34 units of insulin (20 units of basal and 14 units of prandial/correctional) * Bump in SCr noted yesterday, but has since resolved (0.86 -> 1.24 -> 0.92 mg/dL) PLAN FOR INPATIENT GLYCEMIC CONTROL: * Hold outpatient oral diabetes medications * Basal insulin * Lantus 10 units BID with each dose of prednisone 20 mg * Bolus insulin - continue * NovoLog per scale ACHS or Q6hrs while NPO * Goal Range: Low 110 mg/dL - High 140 mg/dL * Correction Factor: 45 mg/dL/unit * Nutritional / Prandial insulin per carb ratio of 1 unit per 15 grams CHO consumed PLAN FOR DISCHARGE: * Patient's A1c of 6.4% suggests good glycemic control * Reasonable to discharge with home regimen (metformin 1 g PO BIDM)
[2019-10-25] MEDS: dilTIAZem HCL 240 MG CAPCR PO SCH (11:18)
[2019-10-25] MEDS: SENNA 8.6 MG TAB PO SCH (11:20)
--- NOTE | 2019-10-25 12:18 | Electrocardiogram Report ---
Test Reason : Blood Pressure : / mmHG Vent. Rate : 092 BPM Atrial Rate : 107 BPM P-R Int : 000 ms QRS Dur : 098 ms QT Int : 346 ms P-R-T Axes : 000 002 183 degrees QTc Int : 427 ms Poor data quality, interpretation may be adversely affected Atrial fibrillation Low voltage QRS Left ventricular hypertrophy with repolarization abnormality Abnormal ECG When compared with ECG of 24-OCT-2019 11:39, T wave inversion now evident in Anterior leads Confirmed by Korey Henriquez ([id number]) on 10/25/2019 12:18:37 PM Referred By: REFERRED SELF Confirmed By:Korey Henriquez
--- NOTE | 2019-10-25 18:58 | Hospitalist Progress Note ---
Date of Service October 25, 2019 Assessment & Plan (1) SIRS (systemic inflammatory response syndrome): (2) Fever: Per admitting service notes: This is an 84-year-old female who has significant past medical history of COPD on 2 L of O2 at at bedtime, bronchiectasis, PAF anticoagulated on apixaban, T2DM, HTN, HLD, osteoporosis, spinal stenosis who presents to ED secondary to fever and ill feeling x1 day. Pt meets SIRS criteria per current CMS guidelines 2/2 to fever and tachypnea. Lactic acid WNL, procalcitonin mildly elevated. Received broad-spectrum IV antibiotics while in ED IV Rocephin and doxycycline. CTA chest, abdomen pelvis and face were without evidence of infection. UA appears contaminated Patient did have dental cleaning yesterday and fever may be secondary to gingival inflammation versus bacteremia. 10/25/2019 Afebrile since admission, leukocytosis resolved; however patient reported shortness of breath, currently on 2 L of O2 via nasal cannula CT chest: 1. Groundglass airspace opacities within the left lower lobe with consolidation at the base of the left lower lobe and a trace left pleural effusion. This is new from the prior study and favors a combination of pneumonia and atelectasis. 2. Stable chronic changes within the right hemithorax. Blood cultures: Klebsiella 1 out of 2 bottles COVID test negative Lyme screen negative improving continue Cefepime + Doxycycline continue Nebs, changed solumedrol to prednisone ff up sputum cultures management of a fib noted below Will need urgent reevaluation by dental service for possible tooth extraction (3) COPD with exacerbation: management per above (4) Hypomagnesemia: Replaced, resolved (5) Paroxysmal a-fib: (+) RVR likely secondary to pneumonia with bacteremia, mild copd exacerbation off Cardizem drip resume Cardizem daily Metoprolol changed to tartrate 25mg TID Continue apixaban for stroke prophylaxis appreciate Cardiology recommendations (6) COPD, severe: Management noted above (7) Prediabetes: Last A1c 6.2 09/2019 NovoLog per protocol Hold metformin -- pharmacy glycemic consult (8) HTN (hypertension): Controlled, continue Toprol and diltiazem (9) Nocturnal hypoxemia: Chronic respiratory failure Chronically on 2 L at bedtime (10) GERD (gastroesophageal reflux disease): Continue PPI (11) DVT prophylaxis: Continue apixaban Disposition: Anticipate discharge to home medically stable Follow-up: PCP Dr. Torre upon discharge Admission and Anticipated Discharge Date Admission Date: October 21, 2019 Subjective ff up for pneumonia, bacteremia, a fib seen resting in chair, comfortable in good spirits still in afib but rate controlled states she feels better today again on 2 liters NC minimal cough with yellow phlegm denies chest pain, palpitations, dizziness no other symptoms Review of Systems Review of Systems: All systems reviewed & are unremarkable except as noted in HPI & below Physical Exam Physical Exam: General- oriented x 3, not in distress, speaks in sentences with no effort or accessory muscle use Eyes- anicteric Neck- no JVD Lungs- mild crackles on the left base no wheezing Heart- normal rate, irreg irregular rhythm; no murmurs Abdomen- normal bowel sounds, nondistended, soft, nontender Extremities- no pretibial edema, no calf tenderness Neuro- alert, oriented x 3; no gross focal neurologic deficits Skin- warm & dry Results & Data Results & Data ([facility]) Vital Signs (Past 12 Hours) Vital Signs Pulse Pulse Pulse Resp BP Pulse Ox 10/25/19 14:00 107 H 24 10/25/19 13:30 93 H 27 H 10/25/19 13:15 87 16 97 10/25/19 13:00 78 23 10/25/19 12:30 80 22 10/25/19 12:15 105 H 25 H 151/65 H 10/25/19 12:00 80 21 10/25/19 11:45 94 H 23 163/90 H 10/25/19 11:30 86 24 10/25/19 11:14 86 22 120/75 10/25/19 11:00 81 22 10/25/19 10:44 73 20 117/71 10/25/19 10:30 77 23 10/25/19 10:14 83 22 131/85 10/25/19 10:00 74 18 10/25/19 09:44 72 23 127/67 10/25/19 09:30 77 21 10/25/19 09:15 88 21 126/69 10/25/19 09:00 79 30 H 10/25/19 08:44 79 23 113/86 10/25/19 08:30 83 23 10/25/19 08:14 96 H 19 122/68 07/05/20 08:00 86 25 H 10/25/19 07:45 85 27 H 143/85 H 10/25/19 07:30 79 18 10/25/19 07:14 87 17 138/91 10/25/19 07:11 71 18 98 10/25/19 07:00 90 14 (1) Fever Fever type: unspecified Qualified Code(s): R50.9 - Fever, unspecified
[2019-10-25] MEDS: PANTOprazole 40 MG TAB PO SCH (20:29)
[2019-10-26] MEDS: LEVALBUTEROL 1.25MG/0.5ML NEB INH SCH ×3 (01:01→12:53)
[2019-10-26] MEDS: IPRATROPIUM BROMIDE NEB SOLN 0.02% 2.5 ML VIAL INH SCH ×3 (01:01→12:53)
[2019-10-26] MEDS: METOPROLOL TARTRATE 25 MG TAB PO SCH ×2 (06:03→14:12)
[2019-10-26 06:09] LABS: Basophils # (auto) 0.01 K/uL (0-0.2); Basophils % (auto) 0.1 %; Eosinophils # (auto) 0.01 K/uL (0-0.5); Eosinophils % (auto) 0.1 %; Hematocrit (blood only) 32.8 % (37-47); Hemoglobin 9.2 g/dL (12.0-16.0); Immature Granulocytes # (auto) 0.07 K/uL (0.00-0.02); Immature Granulocytes % (auto) 0.6 %; Lymphocytes # (auto) 0.96 K/uL (1.2-3.4); Lymphocytes % (auto) 7.6 %; Mean Corpuscular Hemoglobin 22.8 pg (25-34); Mean Corpuscular Volume 81.4 fL (80-100); Mean Platelet Volume 9.4 fL (7.4-10.4); Monocytes # (auto) 0.99 K/uL (0.11-0.59); Monocytes % (auto) 7.9 %; Neutrophils # (auto) 10.57 K/uL (1.4-6.5); Neutrophils % (auto) 83.7 %; Platelet Count 331 K/uL (130-400); RDW Coefficient of Variation 17.3 % (11.5-14.5); RDW Standard Deviation 51.7 fL (36.4-46.3); Red Blood Count 4.03 M/uL (4.2-5.4); White Blood Count 12.61 K/uL (4.8-10.8)
[2019-10-26 06:13] LABS: Estimated Average Glucose 131 mg/dl; Hemoglobin A1C 6.2 % (4.5-5.6)
[2019-10-26 06:42] LABS: BUN Creatinine Ratio 31.7 (10-20); Creatinine Clr Calc Pharmacy 44.6 ml/min; Est GFR (African American) 67.2; Potassium 4.6 mmol/L (3.5-5.1)
[2019-10-26] MEDS: BUDESONIDE 0.5 MG/2 ML VIAL (PULMICORT) INH SCH (07:13)
[2019-10-26] MEDS: MONTELUKAST SODIUM 10 MG TABLET PO SCH (08:08)
[2019-10-26] MEDS: APIXABAN 2.5 MG TAB PO SCH (08:08)
[2019-10-26] MEDS: predniSONE 20 MG TAB PO SCH (08:08)
[2019-10-26] MEDS: DOXYCYCLINE HYCLATE 100 MG CAP PO SCH (08:08)
[2019-10-26] MEDS: LACTOBACILLUS ACIDOPHILUS (FLORANEX) TAB PO SCH ×2 (08:08→11:36)
[2019-10-26] MEDS: dilTIAZem HCL 240 MG CAPCR PO SCH (08:08)
[2019-10-26] MEDS: CHOLECALCIFEROL 1,000 UNITS 25 MCG TAB PO SCH (08:09)
[2019-10-26] MEDS: SERTRALINE HCL 50 MG TABLET PO SCH (08:09)
[2019-10-26] MEDS: DICLOFENAC SOD 1% GEL 100 GM TUBE EXT SCH (08:10)
[2019-10-26] MEDS: INSULIN ASPART 100 UNITS/ML 3 ML PEN SC SCH ×2 (08:11→11:43)
[2019-10-26] MEDS: DOCUSATE SODIUM 100 MG CAP PO SCH (08:29)
[2019-10-26] MEDS: POLYETHYLENE (MIRALAX) 17 GM PACK PO SCH (08:29)
[2019-10-26] MEDS ORDERED: INSULIN GLARGINE SOLOSTAR 100 UNITS/ML 3 ML PEN SC SCH (09:00)
[2019-10-26 09:31] LABS: Ferritin 29.9 ng/ml (8-388)
[2019-10-26] MEDS: CEFEPIME 2,000 MG in SYRINGE 7.5 ML IV SCH (11:36)
[2019-10-26] MEDS: SENNA 8.6 MG TAB PO SCH (11:37)
--- NOTE | 2019-10-26 11:43 | Cardiology Progress Note ---
Date of Service October 26, 2019 Assessment & Plan (1) Paroxysmal a-fib: (2) Left lower lobe pneumonia: (3) Klebsiella pneumoniae sepsis: Ventricular response improved with titration of beta-dary therapy. Reasonable heart rate control noted at rest. Recommend transition to Toprol-XL 75 mg daily at time of discharge. Continue oral Cardizem, 240 mg daily and Eliquis for anticoagulation. Patient is requesting discharge. I discussed activity restrictions when she returns home including avoiding extreme temperatures and strenuous activity. I will see her back for close outpatient cardiology follow-up in 1 week to reevaluate heart rate/rhythm and consider scheduling outpatient external direct-current cardioversion. Subjective Patient seen and examined at the bedside. Feeling better from a cardiovascular perspective. Heart rate remains borderline elevated. Telemetry demonstrates atrial fibrillation with an average heart rate of 90 to 95 bpm. Patient denies palpitations or chest discomfort. No lightheadedness, dizziness, syncope, or near syncope. Denies orthopnea, PND, or lower extremity edema. Requesting discharge. No signs/symptoms of GI/ blood loss. Offers no other concern/complaints at this time. Review of Systems Review of Systems: All systems reviewed & are unremarkable except as noted in HPI & below Physical Exam Constitutional: well developed, + ill appearing and + thin; no acute distress Respiratory: Auscultation: + diminished lung sounds (Bases bilateral) and + wheezes (Bilateral end expiratory wheezing); no crackles, no rales and no rhonchi Cardiovascular: Rate/Rhythm: + irregularly irregular Heart Sounds: normal S1 and normal S2; no murmur Vessels: radial pulses present; no JVD Extremities: no edema (Positive bilateral pretibial stasis changes) Gastrointestinal (Abdomen): Inspection/Auscultation: abdomen normal to inspection and normal bowel sounds; abdomen not distended Percussion/Palpation: abdomen soft; abdomen nontender, no guarding and abdomen not rigid Musculoskeletal: Extremities: + abnormal muscle tone; no cyanosis and no clubbing Skin: no rashes, warm and dry Neurologic: moves all extremities; no focal motor deficits Speech / Cognition: normal speech Motor/Sensory: no tremor Psychiatric: A+Ox3, euthymic affect Results & Data Vital Signs (Past 12 Hours) Vital Signs Temp Pulse Pulse Pulse Resp BP Pulse Ox 10/26/19 07:42 37.0 C 104 H 18 119/64 99 10/26/19 07:30 103 H 10/26/19 07:13 89 16 91 10/26/19 04:00 36.9 C 89 18 109/71 98 10/26/19 01:01 96 H 18 93
[2019-10-26] MEDS ORDERED: LACTULOSE SYRUP 10 GM/15 ML BTL 960 ML PO SCH (14:00)
--- NOTE | 2019-10-26 14:58 | Hospitalist Progress Note ---
Date of Service October 26, 2019 Assessment & Plan (1) SIRS (systemic inflammatory response syndrome): (2) Fever: Per admitting service notes: This is an 84-year-old female who has significant past medical history of COPD on 2 L of O2 at at bedtime, bronchiectasis, PAF anticoagulated on apixaban, T2DM, HTN, HLD, osteoporosis, spinal stenosis who presents to ED secondary to fever and ill feeling x1 day. Pt meets SIRS criteria per current CMS guidelines 2/2 to fever and tachypnea. Lactic acid WNL, procalcitonin mildly elevated. Received broad-spectrum IV antibiotics while in ED IV Rocephin and doxycycline. CTA chest, abdomen pelvis and face were without evidence of infection. UA appears contaminated Patient did have dental cleaning yesterday and fever may be secondary to gingival inflammation versus bacteremia. 10/26/2019 Afebrile since admission, leukocytosis resolved; however patient reported shortness of breath, currently on 2 L of O2 via nasal cannula CT chest: 1. Groundglass airspace opacities within the left lower lobe with consolidation at the base of the left lower lobe and a trace left pleural effusion. This is new from the prior study and favors a combination of pneumonia and atelectasis. 2. Stable chronic changes within the right hemithorax. Blood cultures: Klebsiella 1 out of 2 bottles COVID test negative Lyme screen negative clinically improved, off oxygen supplement Cefepime + Doxycycline --> transition to Cefdinir 300mg BID x 9 days to complete 14 day course repeat blood culture as outpatient to demonstrate clearance of bacteremia Prednisone 20mg x 2 days, then usual 10 mg po daily ff up sputum cultures management of a fib noted below Will need urgent reevaluation by dental service for possible tooth extraction (3) COPD with exacerbation: resolved management per above (4) Hypomagnesemia: Replaced, resolved (5) Paroxysmal a-fib: (+) RVR likely secondary to pneumonia with bacteremia, mild copd exacerbation off Cardizem drip resume Cardizem daily Metoprolol changed to tartrate 25mg TID Continue apixaban for stroke prophylaxis discharge plan: increase to Metoprolol XL 75m po daily continue usual Cardizem 240mg po daily and Eliquis ff up with [facility] Service Tester Dr. Chun in 1 week, possible cardioversion being considered (6) COPD, severe: Management noted above (7) Prediabetes: Last A1c 6.2 09/2019 NovoLog per protocol resume usual Metformin (8) HTN (hypertension): Controlled continue Toprol and diltiazem (9) Nocturnal hypoxemia: Chronic respiratory failure Chronically on 2 L at bedtime (10) GERD (gastroesophageal reflux disease): Continue PPI (11) DVT prophylaxis: Continue apixaban Disposition: discharge to home with home health services ff up with PCP in 1 week ff up with Service Tester in 1 week Admission and Anticipated Discharge Date Admission Date: October 21, 2019 Subjective ff up for pneumonia, bacteremia, a fib seen resting in chair, comfortable, in good spirits, smiling oriented x 3 states she feels much better overall mostly back to her baseline a fib but rate controlled denies chest pain, dyspnea, palpitations, dizziness no cough, sputum production denies other symptoms ambulated in the halls with no problems states she is ready and would like to be discharged today Review of Systems Review of Systems: All systems reviewed & are unremarkable except as noted in HPI & below Physical Exam Physical Exam: General- oriented x 3, not in distress, speaks in sentences with no effort or accessory muscle use Eyes- anicteric Neck- no JVD Lungs- mild rales at the left base- improved no wheezing clear on the right Heart- normal rate, irregularly irregular rhythm; no murmurs Abdomen- normal bowel sounds, nondistended, soft, nontender Extremities- no pretibial edema, no calf tenderness Neuro- alert, oriented x 3; no gross focal neurologic deficits Skin- warm & dry Results & Data Results & Data ([facility]) Vital Signs (Past 12 Hours) Vital Signs Temp Pulse Pulse Pulse Resp BP BP 10/26/19 14:09 94 H 113/62 10/26/19 13:21 10/26/19 12:54 68 17 10/26/19 11:48 36.7 C 72 18 141/69 H 10/26/19 07:42 37.0 C 104 H 18 119/64 10/26/19 07:30 103 H 10/26/19 07:13 89 16 10/26/19 04:00 36.9 C 89 18 109/71 Pulse Ox 10/26/19 14:09 10/26/19 13:21 95 10/26/19 12:54 97 10/26/19 11:48 99 10/26/19 07:42 99 10/26/19 07:30 10/26/19 07:13 91 10/26/19 04:00 98 Laboratory Results Laboratory Results - last 24 hr 10/25/19 10/25/19 10/25/19 05:47 16:32 20:36 WBC RBC Hgb Hct MCV MCH MCHC RDW Std Deviation RDW Coeff of Shahriar Plt Count MPV Immature Gran % (Auto) Neut % (Auto) Lymph % (Auto) [place] % (Auto) Eos % (Auto) Baso % (Auto) Neut # (Auto) Lymph # (Auto) [place] # (Auto) Eos # (Auto) Baso # (Auto) Immature Gran # (Auto) Sodium Potassium Chloride Carbon Dioxide Anion Gap BUN Creatinine Est Cr Clr Drug Dosing Est GFR ( Amer) Est GFR (Non-Af Amer) BUN/Creatinine Ratio Glucose POC Glucose 199 H 151 H Estimat Average Glucose 131 Hemoglobin A1c 6.2 H Calcium Iron TIBC Transferrin Ferritin Folate 10/26/19 10/26/19 10/26/19 05:37 05:37 07:15 WBC 12.61 H RBC 4.03 L Hgb 9.2 L Hct 32.8 L MCV 81.4 MCH 22.8 L MCHC 28.0 L RDW Std Deviation 51.7 H RDW Coeff of Shahriar 17.3 H Plt Count 331 MPV 9.4 Immature Gran % (Auto) 0.6 Neut % (Auto) 83.7 Lymph % (Auto) 7.6 [place] % (Auto) 7.9 Eos % (Auto) 0.1 Baso % (Auto) 0.1 Neut # (Auto) 10.57 H Lymph # (Auto) 0.96 L [place] # (Auto) 0.99 H Eos # (Auto) 0.01 Baso # (Auto) 0.01 Immature Gran # (Auto) 0.07 H Sodium 139 Potassium 4.6 Chloride 106 Carbon Dioxide 29 Anion Gap 4.0 BUN 29 H Creatinine 0.92 Est Cr Clr Drug Dosing 44.6 Est GFR ( Amer) 67.2 Est GFR (Non-Af Amer) 58.0 BUN/Creatinine Ratio 31.7 H Glucose 164 H POC Glucose 151 H Estimat Average Glucose Hemoglobin A1c Calcium 9.0 Iron TIBC Transferrin Ferritin Folate 07/06/20 07/06/20 07/06/20 08:48 08:48 11:34 WBC RBC Hgb Hct MCV MCH MCHC RDW Std Deviation RDW Coeff of Shahriar Plt Count MPV Immature Gran % (Auto) Neut % (Auto) Lymph % (Auto) [place] % (Auto) Eos % (Auto) Baso % (Auto) Neut # (Auto) Lymph # (Auto) [place] # (Auto) Eos # (Auto) Baso # (Auto) Immature Gran # (Auto) Sodium Potassium Chloride Carbon Dioxide Anion Gap BUN Creatinine Est Cr Clr Drug Dosing Est GFR ( Amer) Est GFR (Non-Af Amer) BUN/Creatinine Ratio Glucose POC Glucose 203 H Estimat Average Glucose Hemoglobin A1c Calcium Iron 19 L TIBC 347 Transferrin 252 Ferritin 29.9 Folate 17.91 (1) Fever Fever type: unspecified Qualified Code(s): R50.9 - Fever, unspecified
--- NOTE | 2019-10-26 15:32 | Discharge Summary ---
Date of Service October 26, 2019 Admission HPI Per Admitting Provider This is an 84-year-old female who has significant past medical history of COPD on 2 L of O2 at at bedtime, bronchiectasis, PAF anticoagulated on warfarin, T2DM, HTN, HLD, osteoporosis, spinal stenosis who presents to ED secondary to fever and ill feeling x1 day. Granddaughter is at bedside. Patient was doing well until yesterday after she went to [facility] and had her teeth cleaned. Shortly after getting her teeth cleaned she began to feel unwell, nauseated, increased fatigue and weakness. She got minimal sleep throughout the night due to not feeling well. This morning her daughter came to check on her and checked her temperature noting it to be in the low 100s. She does live alone at home but has family support close by. She denies any chills or sweats, lightheadedness, dizziness, syncope, headache, neck pain, URI symptoms, cough, chest pain, shortness of breath, hemoptysis, emesis, abdominal pain, diarrhea. She typically is more constipated and is on a bowel regimen. She denies any difficulty urinating including increased urgency or frequency with urination, hematuria or dysuria. Since quarantine she has been staying at home and the first time she went out in public with yesterday's dental appointment. She denies any known COVID-19 contacts. She further denies any rashes or known tick bites. Typically she is on oxygen 2 L at at bedtime but not during the day. In ED patient remained hemodynamically stable although she was febrile at 38.1 and tachypneic. She did require supplemental oxygen to maintain O2 saturations. Lab work notable for WBC 9.61, H&H 9.5 and 32.8, platelet 267, sodium 134, BUN 12, creatinine 0.76, glucose 101, lactate 1.0, mag 1.4, troponin WNL, LFTs WNL, procalcitonin elevated 0.60. Urinalysis consistent with contamination. She underwent multiple imaging studies including chest x-ray, CT scan of chest, abdomen pelvis and face. The CT did reveal multiple dental caries but no apparent abscess or inflammation. No evidence of consolidation or abdominal infection. Empirically she did receive IV Rocephin and doxycycline while in ED, magnesium supplementation, nebulizer treatment and IV Solu-Medrol. Admission Exam Per Admitting Provider Constitutional: Elderly, female, acutely appearing, lying in bed, WD/WN, vitals as above, pleasant, conversing easily Head: Normocephalic, Atraumatic Eyes: PERRL, conjunctivae normal, anicteric sclerae ENMT: external ear and nose normal, oropharynx normal, poor dentition, absent dentition Neck: trachea midline, no thyromegaly normal visual inspection Respiratory: normal respiratory effort, lungs clear to auscultation, no wheeze, rales, rhonchi. Normal insp/exp effort, no accessory muscle use Cardiovascular: RRR, 2/6 CIARA at RUSB, no edema Vessels: no JVD or carotid bruit Chest: normal inspection of chest Abdomen: Protuberant abdomen, normal bowel sounds, soft, nontender, no hepatosplenomegaly Musculoskeletal: no cyanosis or clubbing, extremities motor strength 5/5 Skin: Numerous areas of ecchymoses to bilateral lower extremity, no rashes or skin breakdown, warm and dry normal turgor Neurologic: PERRL, EOMI, accommodation nl, no face palsy, no dysarthria CN's II-XI intact bilaterally and moves all extremities Psychiatric: A+Ox3, euthymic affect Lymphatic: no cervical or axillary lymphadenopathy : deferred Principal Diagnosis PNEUMONIA, KLEBSIELLA BACTEREMIA; ATRIAL FIBRILLATION IN RAPID VENTRICULAR RESPONSE Discharge Exam General- oriented x 3, not in distress, speaks in sentences with no effort or accessory muscle use Eyes- anicteric Neck- no JVD Lungs- mild rales at the left base- improved no wheezing clear on the right Heart- normal rate, irregularly irregular rhythm; no murmurs Abdomen- normal bowel sounds, nondistended, soft, nontender Extremities- no pretibial edema, no calf tenderness Neuro- alert, oriented x 3; no gross focal neurologic deficits Skin- warm & dry Discharge Data Allergies Allergy/AdvReac Type Severity Reaction Status Date / Time Cipro Allergy Intermediate hives, Verified 04/25/17 06:31 itching ciprofloxacin Allergy Intermediate hives, Verified 10/21/19 15:50 itching amoxicillin Allergy Mild Itching Verified 10/21/19 15:49 clavulanic acid Allergy Mild Itching Verified 10/21/19 15:49 alendronate sodium AdvReac Intermediate feet and Verified 10/21/19 15:49 hand pain levofloxacin AdvReac Intermediate muscle pain Verified 10/21/19 15:49 Consultations 10/21/19 16:35 ED Decision to Admit Stat 10/21/19 20:42 Consult Case Management - Discharge Planning Routine 10/24/19 10:14 Consult Cardiology Routine 10/26/19 08:08 Consult Infectious Diseases Routine Ordered Studies 10/21/19 15:07 CT abd pelvis wo con Stat FINDINGS: The chest will be reported separately. No pneumatosis, free air or portal venous gas is present. Evaluation of the abdomen and pelvis is suboptimal on this unenhanced examination. There is no biliary ductal dilatation status post cholecystectomy. Unenhanced images of the liver, spleen, adrenal glands, kidneys and pancreas are unremarkable. There is no hydronephrosis. There is no peripancreatic infiltration. There is extensive plaque of the abdominal aorta which is normal in caliber. The appendix is not visualized. There is no evidence for a bowel obstruction. Colonic diverticulosis is noted without evidence for acute diverticulitis. Previous ventral hernia repair with mesh is noted. A midline ventral hernia which contains multiple small bowel loops is similar appearance to prior examination. This does not result in a bowel obstruction. There are no suspicious osseous lesions. Is no lymphadenopathy. IMPRESSION: 1. No acute process within the abdomen or pelvis on unenhanced exam. 2. No bowel obstruction. No bowel wall thickening identified. CT chest wo con Stat FINDINGS: Incidental note is made of a partially visualized right glenohumeral joint effusion. Mild dilatation of the ascending aorta is unchanged. There is moderate cardiomegaly. Moderate coronary artery calcification is noted. Right hemithorax volume loss is unchanged. Right basilar pleural calcification is unchanged. Old right-sided rib deformities are noted. There is no consolidation to suggest pneumonia. A few small pulmonary nodules are unchanged since prior examination. The central airways are patent. There is no pneumothorax. No pleural effusion is present. The appearance of the chest is unchanged since CT of August 18, 2015. Upper abdomen is unremarkable. IMPRESSION: No acute findings. Chronic findings within the right hemithorax, u nchanged since CT of August 18, 2015. CT facial bones wo con Stat 10/23/19 08:05 CT chest wo con Routine FINDINGS: Incidental note is made of a partially visualized right glenohumeral joint effusion. Mild dilatation of the ascending aorta is unchanged. There is moderate cardiomegaly. Moderate coronary artery calcification is noted. Right hemithorax volume loss is unchanged. Right basilar pleural calcification is unchanged. Old right-sided rib deformities are noted. Groundglass airspace opacities within the left lower lobe with consolidation at the base of the left lower lobe and a trace left pleural effusion. This is new from the prior study and favors a combination of pneumonia and atelectasis. A few small pulmonary nodules are unchanged since prior examination. The central airways are patent. There is no pneumothorax. Right apical pleural-parenchymal scarring remains unchanged. Upper abdomen is unremarkable. IMPRESSION: 1. Groundglass airspace opacities within the left lower lobe with consolidation at the base of the left lower lobe and a trace left pleural effusion. This is new from the prior study and favors a combination of pneumonia and atelectasis. 2. Stable chronic changes within the right hemithorax. Hospital Course (1) Klebsiella pneumoniae sepsis: (2) Bacteremia due to Klebsiella pneumoniae: (3) Left lower lobe pneumonia: This is an 84-year-old female who has significant past medical history of COPD on 2 L of O2 at at bedtime, bronchiectasis, PAF anticoagulated on apixaban, T2DM, HTN, HLD, osteoporosis, spinal stenosis who presents to ED secondary to fever and ill feeling x1 day. while admitted, patient reported shortness of breath, placed on 2 L of O2 via n kirstin cannula repeat CT chest: 1. Groundglass airspace opacities within the left lower lobe with consolidation at the base of the left lower lobe and a trace left pleural effusion. This is new from the prior study and favors a combination of pneumonia and atelectasis. 2. Stable chronic changes within the right hemithorax. Blood cultures: (+) Klebsiella 1 out of 2 bottles COVID test negative Lyme screen negative placed on Cefepime IV and Doxycycline PO Nebs and Solumedrol taper clinically improved, off oxygen supplement discharge plan: transition to Cefdinir 300mg BID x 9 days to complete 14 day course repeat blood culture as outpatient to demonstrate clearance of bacteremia Prednisone 20mg x 2 days, then usual 10 mg po daily Will need urgent reevaluation by dental service for possible tooth extraction (4) COPD with exacerbation: resolved management per above (5) Hypomagnesemia: Replaced, resolved (6) Paroxysmal a-fib: (+) RVR likely secondary to pneumonia with bacteremia, mild copd exacerbation placed on Cardizem drip for 2 days Metoprolol changed to tartrate 25mg TID Continued apixaban for stroke prophylaxis shipping services sales representative Dr. Calixto consulted HR improved discharge plan: increase to Metoprolol XL 75m po daily continue usual Cardizem 240mg po daily and Eliquis ff up with [facility] Singer Dr. Calixto in 1 week, possible cardioversion being considered (7) COPD, severe: Management noted above (8) Prediabetes: Last A1c 6.2 09/2019 resume usual Metformin (9) HTN (hypertension): Controlled continue Toprol and diltiazem (10) Nocturnal hypoxemia: Chronic respiratory failure Chronically on 2 L at bedtime (11) GERD (gastroesophageal reflux disease): Continue PPI Disposition: discharge to home with home health services ff up with PCP in 1 week ff up with [facility] in 1 week Total Time Total Time Spent Total Time Spent (In Minutes): 55 minutes Discharge Plan Discharge Items Patient Disposition: Home - Home Health Services Reason For Visit: FEVER Discharge Diagnosis: PNEUMONIA, BLOOD STREAM INFECTION ATRIAL FIBRILLATION Activity: Resume your previous activity Activity Comment: RESUME ACTIVITY GRADUALLY TOLERATED, NO HEAVY EXERTION Lifting: Wait until after follow-up appointment Exercise/Sports: Wait until after follow-up appointment Driving/Machine Use: NO DRIVING UNTIL RE-EVALUATED AND ALLOWED BY PRIMARY CARE PHYSICIAN Non-emergency contact: Primary Care Provider Call non-emergency contact if: you have any medication questions, your symptoms worsen and you have a fever Follow-up/Referrals: William Calixto DO [[facility]] - Mamadou Saldana MD [Primary Care Provider] - 10/30/19 11:20 am Diet: Carb Consistent or DM2 and Heart Healthy Addtl Attending Provider Instructions: PLEASE REVIEW YOUR NEW MEDICATION LIST AND FOLLOW INSTRUCTIONS CAREFULLY. MEDICATION CHANGES: START CEFDINIR - ANTIBIOTIC FOR PNEUMONIA AND BLOOD STREAM INFECTION INCREASE METOPROLOL XL TO 75MG PO DAILY TO CONTROL HEART RATE TAKE PREDNISONE 20MG X 2 DAYS, THEN RESUME YOUR USUAL 10MG PO DAILY- FOR COPD FLARE CULTURELLE- PROBIOTIC TO PREVENT C DIFF DIARRHEA CALL YOUR PRIMARY CARE PHYSICIAN OR RETURN TO THE ER IMMEDIATELY IF WITH RECURRE NCE OF SYMPTOMS, COUGH, SHORTNESS OF BREATH, SPUTUM PRODUCTION, FEVER/CHILLS, CHEST PAIN, PALPITATIONS, DIZZINESS, WEAKNESS. FOLLOW UP WITH DR. SALDANA ON SATURDAY OUTLINED ABOVE. FOLLOW UP WITH DIGITAL MUSIC INSTRUCTOR DR. CALIXTO IN 1 WEEK. HIS CLINIC WILL CALL YOU FOR THE APPOINTMENT SCHEDULE. FOLLOWUP WITH YOUR DENTIST SCHEDULED. Pending Studies at Discharge: No Stand-Alone Forms: My [facility], Smoking Cessation Medications and DC Order Prescriptions: New cefdinir 300 mg Capsule 300 mg PO BID Qty: 18 RF: 0 metoprolol succinate [Toprol XL] 25 mg tablet extended release 24 hr 75 mg PO DAILY Qty: 90 RF: 2 Culturelle 10 billion cell capsule 1 cap PO DAILY Qty: 30 RF: 0 Continued montelukast [Singulair] 10 mg Tablet 10 mg PO QAM RF: 0 ondansetron 4 mg tablet,disintegrating 4 mg PO Q8H PRN (Reason: Nausea And Vomiting) RF: 0 nitrofurantoin monohyd/m-cryst 100 mg capsule 100 mg PO DAILY PRN (Reason: Frequent UTI's) RF: 0 sennosides [Senokot] 8.6 mg Tablet 8.6 mg PO QDL RF: 0 prednisone 10 mg Tablet 10 mg PO QAM RF: 0 doxycycline hyclate 100 mg Capsule 100 mg PO BID PRN (Reason: COPD Rescue Kit) RF: 0 diltiazem HCl 240 mg capsule,extended release 24hr 240 mg PO QAM RF: 0 tramadol 50 mg Tablet 50 mg PO Q6 PRN (Reason: Pain) RF: 0 metformin 1,000 mg Tablet 1,000 mg PO BID RF: 0 docusate sodium [Colace] 100 mg Capsule 100 mg PO BID RF: 0 budesonide 0.5 mg/2 mL Suspension For Nebulization 0.5 mg INHALATION BID RF: 0 furosemide [Lasix] 20 mg Tablet 20 mg PO DAILY PRN (Reason: Swelling) RF: 0 albuterol sulfate [ProAir HFA] 90 mcg/actuation Hfa Aerosol Inhaler 2 puff INHALATION Q4H PRN (Reason: COUGH/WHEEZING) RF: 0 sertraline [Zoloft] 50 mg Tablet 50 mg PO QAM RF: 0 cholecalciferol (vitamin D3) [Vitamin D3] 5,000 unit Tablet 5,000 unit PO QAM RF: 0 omeprazole 20 mg Tablet,Delayed Release (Dr/Ec) 20 mg PO HS RF: 0 ipratropium-albuterol 0.5 mg-3 mg(2.5 mg base)/3 mL Solution For Nebulization 3 ml INHALATION Q6 RF: 0 polyethylene glycol 3350 [Miralax] 17 gram Powder In Packet 17 g PO DAILY RF: 0 Eliquis 2.5 mg tablet 2.5 mg PO BID RF: 0 Discontinued metoprolol succinate [Toprol XL] 50 mg Tablet Extended Release 24 Hr 50 mg PO QAM RF: 0 Discharge Orders: Discharge Order (Routine); Ordered 10/26/19 Ordered By: Jose Bella/Other Patient Handouts: Managing Type 2 Diabetes Admission Data Admit Date/Time: 10/21/19 17:47 Attending Provider: Jose Tatmu Admit Provider: Oscar Braun Primary Care Provider: Mamadou Saldana Other Providers: Oscar Braun ; William Calixto ; Tristan Aguirre ; Sravan Mendez ; Gavino Wallace I. ; López Rojas II ; Tiki Brewster ; Rojelio Lawson ; [facility]
[2019-10-26] MEDS ORDERED: CEFDINIR 300 MG CAP PO SCH (21:00)
--- NOTE | 2019-10-27 06:17 | Electrocardiogram Report ---
Test Reason : Blood Pressure : / mmHG Vent. Rate : 095 BPM Atrial Rate : 000 BPM P-R Int : 000 ms QRS Dur : 100 ms QT Int : 352 ms P-R-T Axes : 000 001 149 degrees QTc Int : 442 ms Atrial fibrillation Nonspecific ST and T wave abnormality Abnormal ECG When compared with ECG of 25-OCT-2019 07:02, No significant change Confirmed by Niko Clemente ([id number]) on 10/27/2019 6:17:26 AM Referred By: REFERRED SELF Confirmed By:Niko Clemente
== END 2019-10-26 16:01 | disposition home health service (06) | DRG 871 ==
LOC: ED 14:13 → 2W 17:47 → SUATTDRO 17:47 → 2W 19:52 → 1E 10-24 13:46 → 2S 10-25 21:58

== ENCOUNTER 2019-11-27 14:37 | Inpatient (IN) ==
[2019-11-27] MEDS ORDERED: dilTIAZem HCl 5 MG/ML 5 ML VIAL IV ONE (15:02)
[2019-11-27] MEDS ORDERED: STAT IV Infusion **Titration per Protocol STA (15:06)
[2019-11-27] MEDS ORDERED: SODIUM CHLORIDE 0.9% 1000ML 500 ML IV ONE (15:08)
[2019-11-27] MEDS ORDERED: LEVALBUTEROL HCL 0.63 MG/3 ML NEB NEB STA (15:12)
[2019-11-27] MEDS: dilTIAZem HCL 125 MG in DEXTROSE 5% 100 ML IV SCH (15:19)
--- NOTE | 2019-11-27 15:21 | Emergency Department Note ---
History of Present Illness General Chief complaint: Shortness of Breath/Dyspnea Stated complaint: sob Time Seen by Provider: 11/27/19 14:57 History of Present Illness Provider complaint: Shortness of breath Onset (ago): day(s) 1 Location: chest Severity: moderate Maximum Pain Intensity: 5 Current Pain Intensity: 5 Quality: + other (Pressure) Relieved By: + none Associated symptoms: + chest pain and + shortness of breath; no fever/chills 84-year-old female presents emergency department for shortness of breath. She states her shortness of breath began yesterday around 8 PM when she was trying to clean her house using a Lysol dry cleaner hand. She states she thinks use too much of the Lysol dry cleaner hand and inhaled too many of the fumes. She states she woke up this morning feeling increasing short of breath. She used the oxygen that she usually uses arm only at night because she felt so short of breath. She also took her prednisone tablets that she has as well as 2 breathing treatments which she states did not help her. Patient states that she is feeling so short of breath that she began having palpitations and began feeling like her atrial fibrillation was "kicking in". Patient reports once her atrial fibrillation and palpitations started, the patient began having chest pain that was pressure-like located in the substernal area and was moderate in nature. No fevers. No loss of taste or smell. Home Medications Home Medications Medication Instructions Recorded Confirmed Type budesonide 0.5 mg INHALATION BID 07/30/18 11/27/19 History cholecalciferol (vitamin D3) 5,000 unit PO QAM 07/30/18 11/27/19 History [Vitamin D3] diltiazem HCl 240 mg PO QAM 07/30/18 11/27/19 History docusate sodium [Colace] 100 mg PO BID 07/30/18 11/27/19 History doxycycline hyclate 100 mg PO BID PRN 07/30/18 11/27/19 History furosemide [Lasix] 20 mg PO DAILY PRN 07/30/18 11/27/19 History metformin 1,000 mg PO BID 07/30/18 11/27/19 History prednisone 10 mg PO QAM 07/30/18 11/27/19 History sennosides [Senokot] 8.6 mg PO QDL 07/30/18 11/27/19 History sertraline [Zoloft] 50 mg PO QAM 07/30/18 11/27/19 History tramadol 50 mg PO Q6 PRN 07/30/18 11/27/19 History montelukast [Singulair] 10 mg PO QAM 02/08/19 11/27/19 History omeprazole 20 mg PO HS 05/05/19 11/27/19 History ondansetron 4 mg PO Q8H PRN 06/23/19 11/27/19 History Eliquis 2.5 mg PO BID 10/21/19 11/27/19 History ipratropium-albuterol 3 ml INHALATION Q6 10/21/19 11/27/19 History polyethylene glycol 3350 [Miralax] 8.5 - 17 g PO DAILY 10/21/19 11/27/19 History Oxygen Home 11/08/19 11/27/19 History metoprolol succinate [Toprol XL] 100 mg PO QAM 11/08/19 11/27/19 History prednisone 60 mg PO DIRECTED PRN 11/08/19 11/27/19 History acetaminophen 650 mg PO Q12H PRN 11/09/19 11/27/19 History albuterol sulfate [Ventolin HFA] 1 inh INHALATION QID PRN 11/09/19 11/27/19 History Allergies Allergy/AdvReac Type Severity Reaction Status Date / Time Cipro Allergy Intermediate hives, Verified 04/25/17 06:31 itching ciprofloxacin Allergy Intermediate hives, Verified 11/09/19 09:32 itching amoxicillin Allergy Mild Itching Verified 11/09/19 09:32 clavulanic acid Allergy Mild Itching Verified 11/09/19 09:32 alendronate sodium AdvReac Intermediate leg pain Verified 11/09/19 09:32 levofloxacin AdvReac Intermediate leg muscle Verified 11/09/19 09:32 pain nitrofurantoin AdvReac Intermediate diarrhea Verified 11/27/19 15:46 [From Macrobid] Past Med/Surg History Medical History Anxiety Arthritis (Chronic) Bronchiectasis (Chronic) right middle lobectomy Chronic steroid use COPD, severe (Chronic) Depression GERD (gastroesophageal reflux disease) (Chronic) HTN (hypertension) (Chronic) Hyperlipidemia (Chronic) "statin intolerance" Nocturnal hypoxemia (Chronic) On home oxygen therapy 2lpm via n/c HS. will use during the day PRN for SOB. Paroxysmal a-fib (Chronic) Pneumonia (Inactive) hx Pulmonary hypertension (Chronic) SBO (small bowel obstruction) (Chronic) no surgery needed Shortness of breath Spinal stenosis (Chronic) Surgical History H/O hernia repair (Chronic) incisional hernia repair History of appendectomy removed with hysterectomy History of bronchoscopy History of cataract surgery (Chronic) bilateral History of cholecystectomy (Chronic) History of colonoscopy S/P epidural steroid injection 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" S/P JAMES-BSO Family History Mother Diabetes Father Lung disease Social History Smoking Status: Never smoker Second Hand Exposure: Yes (as a child); Hx Alcohol Use: No Hx Substance Use: No Preferred Language: Spanish Communication Ability: Effective Metal Pattern Maker Required: No Beliefs That Will Affect Care: None marital status: / Current Living Situation: Alone current occupational status: retired Feels Safe at Home: Yes Review of Systems A total of 10 systems reviewed and were otherwise negative Physical Exam Vital Signs Vital Signs - 24 hr 11/27/19 14:43 11/27/19 15:05 11/27/19 15:17 Temperature 36.6 C Temperature Source Oral Pulse Rate 144 H Pulse Rate [Apical] Respiratory Rate 22 Respiratory Effort / Characteristics Non-Labored Labored Respiratory Depth Normal Normal Respiratory Pattern Regular Tachypnea Blood Pressure 111/63 Blood Pressure Mean 79 Blood Pressure Position Sitting Pulse Oximetry 98 95 Oxygen Delivery Method Room Air Nasal Cannula Nasal Cannula Oxygen Flow Rate Sepsis Recent Fever Within 48 Hours No Sepsis New/Unexplained Change in Mental Status No Sepsis Action Taken by Nursing No Action Required 11/27/19 15:33 Temperature Temperature Source Pulse Rate Pulse Rate [Apical] 98 H Respiratory Rate 20 Respiratory Effort / Characteristics Non-Labored Spontaneous Respiratory Depth Respiratory Pattern Blood Pressure Blood Pressure Mean Blood Pressure Position Pulse Oximetry 98 Oxygen Delivery Method Nasal Cannula Oxygen Flow Rate 3 Sepsis Recent Fever Within 48 Hours Sepsis New/Unexplained Change in Mental Status Sepsis Action Taken by Nursing Physical Exam HENT: Exam performed. -Head: Normocephalic and atraumatic. -Right Ear: External ear normal. No mastoid tenderness. -Left Ear: External ear normal. No mastoid tenderness. -Mouth/Throat: The oropharynx is clear and moist. No trismus in the jaw. No dental abscesses or uvula swelling. No oropharyngeal exudate or tonsillar abscesses. EYES: Conjunctivae and EOM are normal. Pupils are equal, round, and reactive to light. Right eye exhibits no discharge. Left eye exhibits no discharge. No scleral icterus. NECK: Normal range of motion. Neck supple. No JVD present. No spinous process tenderness present. No carotid bruit present. No rigidity. No tracheal deviation and normal range of motion present. No Brudzinski's sign and no Kernig's sign noted. CV: Tachycardic rate, irregular rhythm, normal heart sounds and intact distal pulses. There is no peripheral edema. Palpable radial pulses bue. PULM/CHEST: Respiratory distress. Diffuse expiratory wheezes. ABD: The abdomen is soft. Bowel sounds are normal. She has no distension. No mass is present. There is no tenderness. There is no rebound, no guarding, no Sifuentes's sign and no tenderness at McBurney's point. Rovsig negative MUSC/SKEL: Normal range of motion. There is no peripheral edema, tenderness or deformity. LYMPH: No cervical adenopathy. NEURO: She is alert and oriented to person, place, and time. She has normal strength. No cranial nerve deficit or sensory deficit. Coordination and gait normal. GCS eye subscore is 4. GCS verbal subscore is 5. GCS motor subscore is 6. Cerebellar tests wnl. SKIN: Skin is warm and dry. She is not diaphoretic. PSYCH: She has a normal mood and affect. Behavior is normal. Judgment and thought content normal. Course Course 1457: The patient was evaluated in room A3. A complete history and physical exam was performed. On arrival in the room the patient was having severe expiratory wheezes and appeared to be in respiratory distress. She was placed on supplemental oxygen via nasal cannula for comfort. Patient was placed on nurse monitoring. She was found to be in atrial fibrillation with a rapid ventricular rate. Her rate was anywhere between 100-150. Patient does state that she took all of her morning medications including her morning home Cardizem dosage, Eliquis, prednisone, and breathing treatments. It is thought that the patient's A. fib RVR could be induced by her taking 2 nebulized breathing treatments at home. Patient will be given a Xopenex treatment given her extreme respiratory distress as well as be started on a Cardizem drip for her A. fib RVR. Cardiac monitoring: An order was placed for continuous cardiac monitoring. The monitor shows a rate of 150 with atrial fibrillation rhythm 1606: Patient states she feels better status post the Xopenex treatment. Her heart rate is improved on a Cardizem drip. Repeat assessment she is still bleeding. Chest x-ray stable. Labs show a potassium of 5.5 magnesium 1.5. Troponin and VBG are within normal limits. Carboxyhemoglobin is pending. Patient continues to do well on nasal cannula 3L. Given the patient's electrolyte abnormalities, respiratory distress, and atrial fibrillation with rapid ventricular rate, the patient will be admitted to the hospitalist service. [facility] hospitalist service will be contacted. 1630: Carboxyhemoglobin within normal limits. Patient case discussed with Eva bertrand PA-C who stated to admit to Dr. Watson Administered Medications Diltiazem HCl 125 mg/ Dextrose 125 mls @ 7.5 mls/hr IV .[id number] JULIANNE; Protocol Stop: 12/27/19 15:14 Last Titration: 11/27/19 16:26 Dose: 7.5 mg/hr, 7.5 mls/hr Documented by: [id number] Cosigned by: [id number] Admin: 11/27/19 15:19 Dose: 5 mg/hr, 5 mls/hr Documented by: [id number] Cosigned by: [id number] Magnesium Sulfate/Dextrose (Magnesium Sulfate / D5w) 1 gm in 100 mls @ 100 mls/hr IV Q1H JULIANNE Stop: 11/27/19 17:54 Last Admin: 11/27/19 16:52 Dose: 100 mls/hr Documented by: [id number] Discontinued Medications Dextrose (Dextrose 50%) 50 ml IV NOW [facility] Stop: 11/27/19 15:54 Last Admin: 11/27/19 16:25 Dose: 50 ml Documented by: [id number] Diltiazem HCl (Cardizem) Confirm Administered Dose 25 mg IV .STK-MED ONE Stop: 11/27/19 15:03 Last Admin: 11/27/19 16:26 Dose: Not Given Documented by: [id number] Sodium Chloride (Nss 1000ml) 500 mls @ 999 mls/hr IV .Q31M ONE Stop: 11/27/19 15:38 Last Infusion: 11/27/19 16:42 Dose: 0 mls/hr Documented by: [id number] Admin: 11/27/19 15:14 Dose: 999 mls/hr Documented by: [id number] Calcium Gluconate 1,000 mg/ (Sodium Chloride) 60 mls @ 240 mls/hr IV NOW STA Stop: 11/27/19 16:06 Last Admin: 11/27/19 16:25 Dose: 240 mls/hr Documented by: [id number] Insulin Human Regular 10 units (/ Syringe) 9.9 mls @ 3 mls/sec IV ONE STA Stop: 11/27/19 15:54 Last Admin: 11/27/19 16:25 Dose: 3 mls/sec Documented by: [id number] Cosigned by: [id number] Levalbuterol HCl (Xopenex 0.63 Mg/3 Ml Neb) 0.63 mg NEB NOW STA Stop: 11/27/19 15:13 Last Admin: 11/27/19 15:31 Dose: 0.63 mg Documented by: [id number] Critical Care Time Critical Care Time: Yes Total Critical Care Time: 67 I have personally spent greater than 67 minutes of critical care time in the direct management of this patient. This includes bedside care, interpretation of diagnostic studies, and testing, discussion with consultants, patient, and family members, and other required patient management activities. This 67 minutes is in excess of all separately billable procedures. Medical Decision Making Laboratory Data Result diagrams: 11/27/19 15:11 11/27/19 15:11 Lab Results 11/27/19 11/27/19 11/27/19 Range/Units 15:11 15:11 15:11 WBC 10.41 (4.8-10.8) K/uL RBC 3.77 L (4.2-5.4) M/uL Hgb 8.6 L (12.0-16.0) g/dL Hct 29.8 L (37-47) % MCV 79.0 L (80-100) fL MCH 22.8 L (25-34) pg MCHC 28.9 L (32-36) g/dL RDW Std Deviation 50.5 H (36.4-46.3) fL RDW Coeff of Shahriar 17.9 H (11.5-14.5) % Plt Count 418 H (130-400) K/uL MPV 9.3 (7.4-10.4) fL Immature Gran % (Auto) 0.8 % Neut % (Auto) 89.5 % Lymph % (Auto) 5.7 % [place] % (Auto) 3.9 % Eos % (Auto) 0.0 % Baso % (Auto) 0.1 % Neut # (Auto) 9.32 H (1.4-6.5) K/uL Lymph # (Auto) 0.59 L (1.2-3.4) K/uL [place] # (Auto) 0.41 (0.11-0.59) K/uL Eos # (Auto) 0.00 (0-0.5) K/uL Baso # (Auto) 0.01 (0-0.2) K/uL Immature Gran # (Auto) 0.08 H (0.00-0.02) K/uL PT 11.1 (9.0-12.0) Seconds INR 1.1 (0.9-1.1) APTT 24.2 (21.0-31.0) Seconds PTT Ratio 0.9 VBG pH (7.36-7.41) VBG pCO2 (38-50) mmHg VBG pO2 mmHg VBG HCO3 mmol/L VBG O2 Saturation % VBG Base Excess mEq/L Carboxyhemoglobin % THgb Barometric Pressure mm/Hg Sodium 133 L (136-145) mmol/L Potassium 5.5 H (3.5-5.1) mmol/L Chloride 98 (98-107) mmol/L Carbon Dioxide 23 (21-32) mmol/L Anion Gap 12.0 H (3-11) BUN 25 H (7-18) mg/dl Creatinine 1.12 (0.6-1.2) mg/dl Est Cr Clr Drug Dosing 36.7 ml/min Est GFR ( Amer) 53.0 Est GFR (Non-Af Amer) 45.7 BUN/Creatinine Ratio 22.5 H (10-20) Glucose 190 H (70-99) mg/dl Calcium 8.6 (8.5-10.1) mg/dl Magnesium 1.5 L (1.8-2.4) mg/dl Total Bilirubin 0.7 (0.2-1) mg/dl AST 144 H (15-37) U/L ALT 172 H (12-78) U/L Alkaline Phosphatase 82 (45-117) U/L Troponin I < 0.015 (0-0.045) ng/ml Total Protein 7.2 (6.4-8.2) gm/dl Albumin 3.1 L (3.4-5.0) gm/dl Globulin 4.1 H (2.5-4.0) gm/dl Albumin/Globulin Ratio 0.8 L (0.9-2) Lipase 73 (73-393) U/L 11/27/19 11/27/19 Range/Units 15:11 15:54 WBC (4.8-10.8) K/uL RBC (4.2-5.4) M/uL Hgb (12.0-16.0) g/dL Hct (37-47) % MCV (80-100) fL MCH (25-34) pg MCHC (32-36) g/dL RDW Std Deviation (36.4-46.3) fL RDW Coeff of Shahriar (11.5-14.5) % Plt Count (130-400) K/uL MPV (7.4-10.4) fL Immature Gran % (Auto) % Neut % (Auto) % Lymph % (Auto) % [place] % (Auto) % Eos % (Auto) % Baso % (Auto) % Neut # (Auto) (1.4-6.5) K/uL Lymph # (Auto) (1.2-3.4) K/uL [place] # (Auto) (0.11-0.59) K/uL Eos # (Auto) (0-0.5) K/uL Baso # (Auto) (0-0.2) K/uL Immature Gran # (Auto) (0.00-0.02) K/uL PT (9.0-12.0) Seconds INR (0.9-1.1) APTT (21.0-31.0) Seconds PTT Ratio VBG pH 7.37 (7.36-7.41) VBG pCO2 41 (38-50) mmHg VBG pO2 45 mmHg VBG HCO3 23 mmol/L VBG O2 Saturation 75.6 % VBG Base Excess -1.7 mEq/L Carboxyhemoglobin 0.0 % THgb Barometric Pressure 734.6 mm/Hg Sodium (136-145) mmol/L Potassium (3.5-5.1) mmol/L Chloride (98-107) mmol/L Carbon Dioxide (21-32) mmol/L Anion Gap (3-11) BUN (7-18) mg/dl Creatinine (0.6-1.2) mg/dl Est Cr Clr Drug Dosing ml/min Est GFR ( Amer) Est GFR (Non-Af Amer) BUN/Creatinine Ratio (10-20) Glucose (70-99) mg/dl Calcium (8.5-10.1) mg/dl Magnesium (1.8-2.4) mg/dl Total Bilirubin (0.2-1) mg/dl AST (15-37) U/L ALT (12-78) U/L Alkaline Phosphatase (45-117) U/L Troponin I (0-0.045) ng/ml Total Protein (6.4-8.2) gm/dl Albumin (3.4-5.0) gm/dl Globulin (2.5-4.0) gm/dl Albumin/Globulin Ratio (0.9-2) Lipase (73-393) U/L Imaging Data Radiologist's Impression: XR chest 1V portable CLINICAL HISTORY: Atypical chest pain COMPARISON STUDY: 11/08/2019 FINDINGS: 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 The heart remains enlarged. Right pleural calcifications remain unchanged. There is blunting of both lateral costophrenic angles. There is progressive interstitial thickening, likely representing mild pulmonary v ascular congestion although interstitial inflammatory processes could appear similar[ IMPRESSION: 1. Cardiomegaly 2. Stable right-sided pleural calcification 3. Persistent blunting of the lateral costophrenic angles 4. Progressive interstitial thickening, pulmonary vascular congestion is favored over interstitial inflammatory processes. Clinical and radiographic follow-up recommended ACT 112: Negative or not required by law. Electronically signed by: Albaro Alonso M.D. 11/27/2019 3:31 PM Dictated: 11/27/19 1528 Transcribed: 11/27/19 1528 ECG Data Indication: + chest pain, + palpitations and + SOB/dyspnea Rate (beats per minute): 117 Rhythm: + atrial fibrillation ECG Intervals/blocks: + Normal QRS and + Normal QT-c ECG ST segments: + Normal ST segments [facility] Narrative 1457: The patient was evaluated in room A3. A complete history and physical exam was performed. On arrival in the room the patient was having severe expiratory wheezes and appeared to be in respiratory distress. She was placed on supplemental oxygen via nasal cannula for comfort. Patient was placed on nurse monitoring. She was found to be in atrial fibrillation with a rapid ventricular rate. Her rate was anywhere between 100-150. Patient does state that she took all of her morning medications including her morning home Cardizem dosage, Eliqu is, prednisone, and breathing treatments. It is thought that the patient's A. fib RVR could be induced by her taking 2 nebulized breathing treatments at home. Patient will be given a Xopenex treatment given her extreme respiratory distress as well as be started on a Cardizem drip for her A. fib RVR. Cardiac monitoring: An order was placed for continuous cardiac monitoring. The monitor shows a rate of 150 with atrial fibrillation rhythm 1606: Patient states she feels better status post the Xopenex treatment. Her heart rate is improved on a Cardizem drip. Repeat assessment she is still bl eeding. Chest x-ray stable. Labs show a potassium of 5.5 magnesium 1.5. Troponin and VBG are within normal limits. Carboxyhemoglobin is pending. Patient continues to do well on nasal cannula 3L. Given the patient's electrolyte abnormalities, respiratory distress, and atrial fibrillation with r apid ventricular rate, the patient will be admitted to the hospitalist service. [facility] hospitalist service will be contacted. 1630: Carboxyhemoglobin within normal limits. Patient case discussed with Eva bertrand PA-C who stated to admit to Dr. Watson Impression & Plan Atrial fibrillation with rapid ventricular response, Hypomagnesemia, Pneumonitis, Acute hyperkalemia Discharge Plan Visit Data Chief Complaint: Shortness of Breath/Dyspnea Stated Complaint: sob ED Provider: Mookie Young Discharge Problem: Atrial fibrillation with rapid ventricular response, Hypomagnesemia, Pneumonitis, Acute hyperkalemia Patient Disposition: Admitted As Inpatient Forms Stand Alone Forms: My [facility] Prescriptions Prescriptions: No Action montelukast [Singulair] 10 mg Tablet 10 mg PO QAM RF: 0 ondansetron 4 mg tablet,disintegrating 4 mg PO Q8H PRN (Reason: Nausea And Vomiting) RF: 0 albuterol sulfate [Ventolin HFA] 90 mcg/actuation Hfa Aerosol Inhaler 1 inh INHALATION QID PRN (Reason: sob) RF: 0 acetaminophen 650 mg Tablet Extended Release 650 mg PO Q12H PRN (Reason: Pain) RF: 0 metoprolol succinate [Toprol XL] 25 mg tablet extended release 24 hr 100 mg PO QAM RF: 0 (DME) Oxygen Home Liters Per Minute RF: 0 prednisone 20 mg Tablet 60 mg PO DIRECTED PRN (Reason: breathing rescue kit) RF: 0 sennosides [Senokot] 8.6 mg Tablet 8.6 mg PO QDL RF: 0 prednisone 10 mg Tablet 10 mg PO QAM RF: 0 doxycycline hyclate 100 mg Capsule 100 mg PO BID PRN (Reason: COPD Rescue Kit) RF: 0 diltiazem HCl 240 mg capsule,extended release 24hr 240 mg PO QAM RF: 0 tramadol 50 mg Tablet 50 mg PO Q6 PRN (Reason: Pain) RF: 0 metformin 1,000 mg Tablet 1,000 mg PO BID RF: 0 docusate sodium [Colace] 100 mg Capsule 100 mg PO BID RF: 0 budesonide 0.5 mg/2 mL Suspension For Nebulization 0.5 mg INHALATION BID RF: 0 furosemide [Lasix] 20 mg Tablet 20 mg PO DAILY PRN (Reason: Swelling) RF: 0 sertraline [Zoloft] 50 mg Tablet 50 mg PO QAM RF: 0 cholecalciferol (vitamin D3) [Vitamin D3] 5,000 unit Tablet 5,000 unit PO QAM RF: 0 omeprazole 20 mg Tablet,Delayed Release (Dr/Ec) 20 mg PO HS RF: 0 ipratropium-albuterol 0.5 mg-3 mg(2.5 mg base)/3 mL Solution For Nebulization 3 ml INHALATION Q6 RF: 0 polyethylene glycol 3350 [Miralax] 17 gram Powder In Packet 8.5 - 17 g PO DAILY RF: 0 Eliquis 2.5 mg tablet 2.5 mg PO BID RF: 0 Referrals Referrals: Mamadou Torre MD [Primary Care Provider] -
[2019-11-27 15:26] LABS: Base Excess VBG -1.7 mEq/L; Oxygen Saturation VBG 75.6 %; pH VBG 7.37 (7.36-7.41)
[2019-11-27 15:29] LABS: Basophils # (auto) 0.01 K/uL (0-0.2); Basophils % (auto) 0.1 %; Hematocrit (blood only) 29.8 % (37-47); Hemoglobin 8.6 g/dL (12.0-16.0); Immature Granulocytes # (auto) 0.08 K/uL (0.00-0.02); Immature Granulocytes % (auto) 0.8 %; Lymphocytes # (auto) 0.59 K/uL (1.2-3.4); Lymphocytes % (auto) 5.7 %; Mean Corpuscular Hemoglobin 22.8 pg (25-34); Mean Corpuscular Hgb Conc 28.9 g/dL (32-36); Mean Platelet Volume 9.3 fL (7.4-10.4); Monocytes # (auto) 0.41 K/uL (0.11-0.59); Monocytes % (auto) 3.9 %; Neutrophils # (auto) 9.32 K/uL (1.4-6.5); Neutrophils % (auto) 89.5 %; Platelet Count 418 K/uL (130-400); RDW Coefficient of Variation 17.9 % (11.5-14.5); RDW Standard Deviation 50.5 fL (36.4-46.3); Red Blood Count 3.77 M/uL (4.2-5.4); White Blood Count 10.41 K/uL (4.8-10.8)
--- NOTE | 2019-11-27 15:32 | XRay Report ---
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 The heart remains enlarged. Right pleural calcifications remain unchanged. There is blunting of [place] th lateral costophrenic angles. There is progressive interstitial thickening, likely representing mil d pulmonary vascular congestion although interstitial inflammatory processes could appear similar[ IMPRESSION: 1. Cardiomegaly 2. Stable right-sided pleural calcification 3. Persistent blunting of the lateral costophrenic angles 4. Progressive interstitial thickening, pulmonary vascular congestion is favored over interstitial in flammatory processes. Clinical and radiographic follow-up recommended ACT 112: Negative or not required by law. Electronically signed by: Albaro Alonso M.D. 11/27/2019 3:31 PM
[2019-11-27 15:35] LABS: INR 1.1 (0.9-1.1); Partial Thromboplastin Ratio 0.9; Partial Thromboplastin Time 24.2 Seconds (21.0-31.0); Prothrombin Time 11.1 Seconds (9.0-12.0)
[2019-11-27 15:41] LABS: Alanine Aminotransferase 172 U/L (12-78); Albumin Level 3.1 gm/dl (3.4-5.0); Aspartate Aminotransferase 144 U/L (15-37); BUN Creatinine Ratio 22.5 (10-20); Blood Urea Nitrogen 25 mg/dl (7-18); Calcium 8.6 mg/dl (8.5-10.1); Carbon Dioxide 23 mmol/L (21-32); Chloride 98 mmol/L (98-107); Creatinine Clr Calc Pharmacy 36.7 ml/min; Est GFR (Non-African American) 45.7; Glucose 190 mg/dl (70-99); Lipase 73 U/L (73-393); Magnesium 1.5 mg/dl (1.8-2.4); Potassium 5.5 mmol/L (3.5-5.1); Sodium 133 mmol/L (136-145)
[2019-11-27 15:46] LABS: Albumin Globulin Ratio 0.8 (0.9-2); Alkaline Phosphatase 82 U/L (45-117); Bilirubin,Total 0.7 mg/dl (0.2-1); Globulin 4.1 gm/dl (2.5-4.0); Total Protein 7.2 gm/dl (6.4-8.2); Troponin I < 0.015 ng/ml (0-0.045)
[2019-11-27] MEDS ORDERED: CALCIUM GLUCONATE 10% 1,000 MG in SODIUM CHLORIDE 0.9% 50 ML IV STA (15:52)
[2019-11-27] MEDS ORDERED: INSULIN HUMAN REGULAR PER UNIT 10 UNITS in SYRINGE 9.9 ML IV STA (15:53)
[2019-11-27] MEDS ORDERED: DEXTROSE 50% 50 ML SYRINGE IV STA (15:53)
[2019-11-27] MEDS ORDERED: MAGNESIUM HYDROXIDE SUSP 30 ML UDC PO PRN (16:38)
[2019-11-27] MEDS ORDERED: ACETAMINOPHEN 325 MG TAB PO PRN (16:38)
[2019-11-27] MEDS ORDERED: ONDANSETRON INJ 2 MG/ML 2 ML VIAL IV PRN (16:38)
[2019-11-27] MEDS ORDERED: NITROGLYCERIN SL 0.4 MG/TAB TAB SL PRN (16:38)
[2019-11-27] MEDS ORDERED: POLYETHYLENE (MIRALAX) 17 GM PACK PO PRN (16:38)
[2019-11-27] MEDS ORDERED: ALUMINUM/MAGNESIUM SUSP 30 ML UDC PO PRN (16:38)
[2019-11-27] MEDS ORDERED: methylPREDNISolone 125 MG/2 ML VIAL IV STA (16:45)
[2019-11-27] MEDS: MAGNESIUM SULFATE / D5W 1 GM/100 ML BAG IV SCH ×6 (16:52→20:47)
[2019-11-27] MEDS ORDERED: SODIUM CHLORIDE 0.9% 1000ML 1,000 ML IV SCH (17:00)
--- NOTE | 2019-11-27 17:11 | History & Physical Report ---
Date of Service November 27, 2019 Assessment & Plan (1) Acute respiratory failure with hypoxia: (2) Pneumonitis: (3) COPD with exacerbation: This is an 84-year-old female who has significant past medical history of COPD on 2 L of O2 at bedtime, bronchiectasis, PAF anticoagulated on Eliquis, T2DM, HTN, HLD, Anemia, CKD-3, GERD, osteoporosis, spinal stenosis who presents to ED secondary to fever and ill feeling x1 day. In ED patient was visibly tachypneic. She required nebulizer treatment with improvement of symptoms. Lab work notable for WBC 10.41, H&H 8.6 and 29.8 with microcytic indices, platelet 418, INR 1.1, VBG WNL, sodium 133, K5.5, BUN 25, creatinine 1.12, glucose 190, mag 1.5, AST 144, ALT 172. Chest x-ray Progressive interstitial thickening, pulmonary vascular congestion or interstitial inflammatory process noted. Pt with acute hypoxic respiratory failure likely hypersensitivity pneumonitis in setting of inhalation of Lysol fumes. Hypoxia likely resulting in exacerbation of paroxysmal atrial fibrillation. Admit to telemetry Pulmonary toilet with ipratropium/levalbuterol, incentive spirometry Methylprednisolone 125 mg x 1 now; then methylprednisolone 40 mg every 8 hours No indication for antibiotics at this time (4) Atrial fibrillation with rapid ventricular response: Continue apixaban for stroke prophylaxis, [id number] 3 Continue diltiazem drip, metoprolol tartrate 25 mg every 6 hours Cardiology consult Echocardiogram Patient was to undergo DARIA/cardioversion secondary to recurrent PAF 2 weeks ago; however, returned to NSR Anticipate improvements with rates with improvement of her respiratory status (5) Hypomagnesemia: Replace, to receive 2 g mag sulfate in ED add 1 g magnesium ordered for a total of 3 g Repeat @ 8pm and in a.m. Daughter discussed recurrent hypomagnesemia and if she would benefit from oral supplementation as outpatient She has not been taking Lasix, but she does take daily omeprazole Monitor magnesium on daily basis, consider oral supplementation as outpatient (6) Acute hyperkalemia: K 5.5, Na 133 not on amy/arb, or potassium supplements receiving calcium gluconate 1g and d5 in ED IVF 75cc/hr, low K diet repeat bmp @ 8pm (7) T2DM (type 2 diabetes mellitus): last a1c 6.2 09/2019 Hold metformin Lantus/NovoLog per protocol Place glycemic pharmacy consult due to anticipate hyperglycemia in setting of steroid use (8) HTN (hypertension): Bp stable continue metoprolol and diltiazem (9) Anemia: H/H 8.6 and 29.8 Microcytic hypochromic indicies check iron panel (10) DVT prophylaxis: apixaban Disposition: admit to tele Follow up: PCP Dr. Torre upon discharge Pt was seen and examined in collaboration with Dr. Watson, please see addendum History of Present Illness Chief Complaint: SOB x 1 day. Primary Care Provider: Mamadou Torre MD This is an 84-year-old female who has significant past medical history of COPD on 2 L of O2 at bedtime, bronchiectasis, PAF anticoagulated on Eliquis, T2DM, HTN, HLD, Anemia, CKD-3, GERD, osteoporosis, spinal stenosis who presents to ED secondary to fever and ill feeling x1 day. Family member is at bedside. Patient states she was in her normal state of health until last evening around 8 PM when she was cleaning with liquid Lysol and inhaled a significant amount of fumes. After this she developed shortness of breath that persisted through the night. She continued to feel worsening chest tightness along with wheezing and a mild clear productive cough. She uses oxygen 2 L at night; however, please resolve on oxygen without significant improvement. Family member at bedside also states home nurse visited patient yesterday who also heard audible wheezing on exam. Symptoms progressed through the night and this morning she was significantly short of breath, "gasping for air." As her breathing was getting worse she felt herself developed palpitations and felt like, "her A. fib was kicking in." She took 40 mg of prednisone per her rescue kit and she took 1 dose of oral doxycycline last evening without significant improvement. Prior to arrival she also took 2 nebulizer treatments without improvement. Of significance patient had recent hospitalization 10/20-10/25 secondary to Klebsiella bacteremia and Klebsiella pneumoniae treated with appropriate antibiotics. On 11/07 she was also seen in ED and diagnosed with COPD exacerbation. Daughter on her rescue kit which included a prednisone taper and doxycycline. The symptoms improved. Also of note in regards to her atrial fibrillation she was to undergo DARIA and cardioversion by Dr. Chun. Fortunately preop EKG revealed normal sinus rhythm and she had an increase in her metoprolol to 100 mg daily. She denies any recent illness, fever, chills, sweats, lightheadedness, dizziness, syncope, chest pain, cough, hemoptysis, nausea, vomiting, abdominal pain, change in bowel or urinary habits. Up till today she had a good appetite. She does continue to live at home and is independent of ADLs. She does have home nursing. In ED patient was visibly tachypneic. She required nebulizer treatment with improvement of symptoms. Lab work notable for WBC 10.41, H&H 8.6 and 29.8 with microcytic indices, platelet 418, INR 1.1, VBG WNL, sodium 133, K5.5, BUN 25, creatinine 1.12, glucose 190, mag 1.5, AST 144, ALT 172. Chest x-ray Progressive interstitial thickening, pulmonary vascular congestion or interstitial inflammatory process noted. Allergies Allergy/AdvReac Type Severity Reaction Status Date / Time Cipro Allergy Intermediate hives, Verified 04/25/17 06:31 itching ciprofloxacin Allergy Intermediate hives, Verified 11/09/19 09:32 itching amoxicillin Allergy Mild Itching Verified 11/09/19 09:32 clavulanic acid Allergy Mild Itching Verified 11/09/19 09:32 alendronate sodium AdvReac Intermediate leg pain Verified 11/09/19 09:32 levofloxacin AdvReac Intermediate leg muscle Verified 11/09/19 09:32 pain nitrofurantoin AdvReac Intermediate diarrhea Verified 11/27/19 15:46 [From Macrobid] Home Medications Home Medications Medication Instructions Recorded Confirmed Type budesonide 0.5 mg INHALATION BID 07/30/18 11/27/19 History cholecalciferol (vitamin D3) 5,000 unit PO QAM 07/30/18 11/27/19 History [Vitamin D3] diltiazem HCl 240 mg PO QAM 07/30/18 11/27/19 History docusate sodium [Colace] 100 mg PO BID 07/30/18 11/27/19 History doxycycline hyclate 100 mg PO BID PRN 07/30/18 11/27/19 History furosemide [Lasix] 20 mg PO DAILY PRN 07/30/18 11/27/19 History metformin 1,000 mg PO BID 07/30/18 11/27/19 History prednisone 10 mg PO QAM 07/30/18 11/27/19 History sennosides [Senokot] 8.6 mg PO QDL 07/30/18 11/27/19 History sertraline [Zoloft] 50 mg PO QAM 07/30/18 11/27/19 History tramadol 50 mg PO Q6 PRN 07/30/18 11/27/19 History montelukast [Singulair] 10 mg PO QAM 02/08/19 11/27/19 History omeprazole 20 mg PO HS 05/05/19 11/27/19 History ondansetron 4 mg PO Q8H PRN 06/23/19 11/27/19 History Eliquis 2.5 mg PO BID 10/21/19 11/27/19 History ipratropium-albuterol 3 ml INHALATION Q6 10/21/19 11/27/19 History polyethylene glycol 3350 [Miralax] 8.5 - 17 g PO DAILY 10/21/19 11/27/19 History Oxygen Home 11/08/19 11/27/19 History metoprolol succinate [Toprol XL] 100 mg PO QAM 11/08/19 11/27/19 History prednisone 60 mg PO DIRECTED PRN 11/08/19 11/27/19 History acetaminophen 650 mg PO Q12H PRN 11/09/19 11/27/19 History albuterol sulfate [Ventolin HFA] 1 inh INHALATION QID PRN 11/09/19 11/27/19 History Past Med/Surg History Medical History (Updated 11/27/19 @ 17:47 by Eva Turpin PA-C) Anxiety Arthritis (Chronic) Bronchiectasis (Chronic) right middle lobectomy Chronic steroid use COPD, severe (Chronic) Depression GERD (gastroesophageal reflux disease) (Chronic) HTN (hypertension) (Chronic) Hyperlipidemia (Chronic) "statin intolerance" Nocturnal hypoxemia (Chronic) On home oxygen therapy 2lpm via n/c HS. will use during the day PRN for SOB. Paroxysmal a-fib (Chronic) Pneumonia (Inactive) hx Pulmonary hypertension (Chronic) SBO (small bowel obstruction) (Chronic) no surgery needed Shortness of breath Spinal stenosis (Chronic) T2DM (type 2 diabetes mellitus) Surgical History H/O hernia repair (Chronic) incisional hernia repair History of appendectomy removed with hysterectomy History of bronchoscopy History of cataract surgery (Chronic) bilateral History of cholecystectomy (Chronic) History of colonoscopy S/P epidural steroid injection 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" S/P JAMES-BSO Family History Mother Diabetes Father Lung disease Social History Smoking Status: Never smoker Second Hand Exposure: No; Do You Dip or Chew Tobacco: No; Tobacco Cessation Education Requested by Patient: No Hx Alcohol Use: No Hx Substance Use: No Preferred Language: Syriac Communication Ability: Effective Tool Repairer Required: No Beliefs That Will Affect Care: None marital status: / Current Living Situation: Alone current occupational status: retired Feels Safe at Home: Yes Safety Concerns: Feels Safe At This Time Review of Systems Review of Systems: All systems reviewed & are unremarkable except as noted in HPI & below Physical Exam Physical Exam: Constitutional: WD/WN, elderly, female, tachypneic, vitals as above, NAD, sitting up in bed, pleasant, conversing easily Head: Normocephalic, Atraumatic Eyes: PERRL, conjunctivae normal, anicteric sclerae ENMT: external ear and nose normal, oropharynx normal Neck: trachea midline, no thyromegaly normal visual inspection Respiratory: Increased respiratory effort, tachypnea, bilateral expiratory wheezing, lungs clear to auscultation, no rales or rhonchi noted. no accessory muscle use Cardiovascular: IRR/IRR, 2/6 CIARA RUSB, no edema Vessels: no JVD or carotid bruit Chest: normal inspection of chest Abdomen: normal bowel sounds, soft, nontender, no hepatosplenomegaly Musculoskeletal: no cyanosis or clubbing, extremities motor strength 5/5 Skin: +ecchymosis noted to b/l lower ext, warm and dry normal turgor Neurologic: PERRL, EOMI, accommodation nl, no face palsy, no dysarthria CN's II-XI intact bilaterally and moves all extremities Psychiatric: A+Ox3, euthymic affect Lymphatic: no cervical or axillary lymphadenopathy : deferred Results & Data Results & Data ([facility]) Vital Signs (Past 12 Hours) Vital Signs Temp Pulse Pulse Resp BP Pulse Ox 11/27/19 16:31 101 H 31 H 114/76 94 11/27/19 16:30 112 H 22 91 11/27/19 16:01 117 H 23 95 11/27/19 16:00 109 H 26 H 130/84 94 11/27/19 15:33 98 H 20 98 11/27/19 15:31 125 H 26 H 98 11/27/19 15:30 88 26 H 115/80 11/27/19 15:08 141 H 34 H 122/81 11/27/19 15:05 95 11/27/19 15:03 91 H 28 H 11/27/19 14:43 36.6 C 144 H 22 111/63 98 Laboratory Results Short CBC 11/27/19 Range/Units 15:11 WBC 10.41 (4.8-10.8) K/uL Hgb 8.6 L (12.0-16.0) g/dL Hct 29.8 L (37-47) % MCV 79.0 L (80-100) fL Plt Count 418 H (130-400) K/uL BMP 11/27/19 15:11 Sodium 133 L Potassium 5.5 H Chloride 98 Carbon Dioxide 23 BUN 25 H Creatinine 1.12 Glucose 190 H Calcium 8.6 Cardiac Enzymes 11/27/19 Range/Units 15:11 Troponin I < 0.015 (0-0.045) ng/ml Liver Function 11/27/19 Range/Units 15:11 Total Bilirubin 0.7 (0.2-1) mg/dl AST 144 H (15-37) U/L ALT 172 H (12-78) U/L Alkaline Phosphatase 82 (45-117) U/L Albumin 3.1 L (3.4-5.0) gm/dl Diagnostic Findings CXR: IMPRESSION: 1. Cardiomegaly 2. Stable right-sided pleural calcification 3. Persistent blunting of the lateral costophrenic angles 4. Progressive interstitial thickening, pulmonary vascular congestion is favored over interstitial inflammatory processes. Clinical and radiographic follow-up recommended Medications Administered Diltiazem HCl 125 mg/ Dextrose 125 mls @ 7.5 mls/hr IV .[id number] [facility]; Protocol Stop: 12/27/19 15:14 Last Titration: 11/27/19 16:26 Dose: 7.5 mg/hr, 7.5 mls/hr Documented by: [id number] Cosigned by: [id number] Admin: 11/27/19 15:19 Dose: 5 mg/hr, 5 mls/hr Documented by: [id number] Cosigned by: [id number] Magnesium Sulfate/Dextrose (Magnesium Sulfate / D5w) 1 gm in 100 mls @ 100 mls/hr IV Q1H [facility] Stop: 11/27/19 17:54 Last Admin: 11/27/19 16:52 Dose: 100 mls/hr Documented by: [id number] Discontinued Medications Dextrose (Dextrose 50%) 50 ml IV NOW STA Stop: 11/27/19 15:54 Last Admin: 11/27/19 16:25 Dose: 50 ml Documented by: [id number] Diltiazem HCl (Cardizem) Confirm Administered Dose 25 mg IV .STK-MED ONE Stop: 11/27/19 15:03 Last Admin: 11/27/19 16:26 Dose: Not Given Documented by: [id number] Sodium Chloride (Nss 1000ml) 500 mls @ 999 mls/hr IV .Q31M ONE Stop: 11/27/19 15:38 Last Infusion: 11/27/19 16:42 Dose: 0 mls/hr Documented by: [id number] Admin: 11/27/19 15:14 Dose: 999 mls/hr Documented by: [id number] Calcium Gluconate 1,000 mg/ (Sodium Chloride) 60 mls @ 240 mls/hr IV NOW STA Stop: 11/27/19 16:06 Last Admin: 11/27/19 16:25 Dose: 240 mls/hr Documented by: [id number] Insulin Human Regular 10 units (/ Syringe) 9.9 mls @ 3 mls/sec IV ONE STA Stop: 11/27/19 15:54 Last Admin: 11/27/19 16:25 Dose: 3 mls/sec Documented by: [id number] Cosigned by: [id number] Levalbuterol HCl (Xopenex 0.63 Mg/3 Ml Neb) 0.63 mg NEB NOW STA Stop: 11/27/19 15:13 Last Admin: 11/27/19 15:31 Dose: 0.63 mg Documented by: [id number] ECG Rate (beats per minute): 117 Code Status & VTE Plan Code Status Full Code VTE Prophylaxis Plan VTE Prophylaxis will be ordered: Yes Supervising Physician Co-Signing Physician Notes Attending addendum: Patient seen and examined, care coordinated with Eva Buchanan PA-C This 84-year-old female with complicated past medical history of COPD, on nighttime O2, paroxysmal A. fib, Presented with the ER with complaint of shortness of breath wheeze, hypoxia Apparently patient inhaled cleaning product fumes/Lysol well Last evening, developed chest tightness, cough, shortness of breath overnight No fever or chills Presents with rapid A. fib RVR Labs and images reviewed Physical exam: General: Anxious , short of breath Lungs: Diffuse wheeze, diminished breath sound Heart: Regular rate bleed Abdomen: Soft nontender Extremity no lower extremity edema Neuro: No focal deficit Acute hypoxemic respiratory failure Due to COPD exacerbation triggered by inhalation of fumes of cleaning supplies Patient given 125 mg IV Solu-Medrol, then continue IV steroids 40 mg every 8 hours Nebulizer treatment with Xopenex every 4 hours scheduled and every 2 as needed No evidence of any infectious process, no antibiotics indicated Counseling provided to patient to avoid spray cleaning supplies, fumes, perfumes which can trigger hypersensitivity reaction in lungs with underlying COPD Rapid A. fib RVR: Possible triggered by hypoxemia/COPD exacerbation Patient took her a.m. dose of Toprol-XL 100 mg Started on IV Cardizem drip, patient on Lopressor 25 mg every 6 hours, continue Eliquis 2.5 mg Cardiology consulted Hyperkalemia: Normal kidney function, patient given calcium gluconate in ER, and insulin and dextrose, repeat BMP in 4 hours Low mag: Got 2 g of IV mag in ER, repeat BMP in 4 hours Microcytic anemia: Hemoglobin 8.6, with MCV 77 Previous labs reviewed, low hemoglobin/anemia noted in the past several months Denies of any dark stool, no blood in stool Ordered for iron panel, Given patient will require lifelong anticoagulation with Eliquis for A. fib, will need outpatient GI eval/colonoscopy Follow H&H, transfusion for hemoglobin less than 8 to prevent cardiac tachyarrhythmia CODE STATUS: Full code discussed with patient DVT prophylaxis: Patient is on Eliquis Please refer to further documentation by Eva Buchanan PA-C for discussion of other medical issues Emily Watson MD
[2019-11-27] MEDS ORDERED: FUROSEMIDE 20 MG TAB PO PRN ×2 (18:14→19:00)
[2019-11-27] MEDS ORDERED: GLUCOSE 10 TABS/TUBE PO PRN (18:14)
[2019-11-27] MEDS ORDERED: GLUCAGON FOR INJ 1 MG VIAL SQ PRN (18:14)
[2019-11-27] MEDS ORDERED: CARBOHYDRATES FOR HYPOGLYCEMIA PO PRN (18:14)
[2019-11-27] MEDS ORDERED: DEXTROSE 50% 50 ML SYRINGE IV PRN (18:14)
[2019-11-27] MEDS ORDERED: IPRATROPIUM BROMIDE NEB SOLN 0.02% 2.5 ML VIAL INH SCH (18:14)
[2019-11-27] MEDS ORDERED: GLUCOSE 40% GEL 15 GM TUBE PO PRN (18:14)
[2019-11-27] MEDS ORDERED: LEVALBUTEROL 1.25MG/0.5ML NEB INH SCH (18:14)
[2019-11-27] MEDS ORDERED: XOPENEX/ATROVENT 1.25mg/0.5MG NEB COMBO NEB SCH (18:14)
[2019-11-27] MEDS ORDERED: PHARMACY GLYCEMIC MGMT CONSULT PRN (18:25)
[2019-11-27] MEDS ORDERED: FUROSEMIDE 20 MG TAB PO ONE (18:58)
[2019-11-27] MEDS: LEVALBUTEROL 1.25MG/0.5ML NEB INH SCH ×2 (19:36→21:46)
[2019-11-27] MEDS: IPRATROPIUM BROMIDE NEB SOLN 0.02% 2.5 ML VIAL INH SCH ×2 (19:36→21:46)
[2019-11-27] MEDS: APIXABAN 2.5 MG TAB PO SCH (19:58)
[2019-11-27] MEDS: INSULIN ASPART 100 UNITS/ML 3 ML PEN SC SCH ×2 (19:58→20:33)
[2019-11-27] MEDS: DOCUSATE SODIUM 100 MG CAP PO SCH (19:58)
[2019-11-27] MEDS: PANTOprazole 40 MG TAB PO SCH (19:59)
--- NOTE | 2019-11-27 20:04 | Pharmacy Report ---
Glycemic Control Consultation - Date of Service November 27, 2019 - Scope Scope: Glycemic Pharmacist consulted for glycemic control and to write orders per [facility] inpatient glycemic control protocol. - Objective Weight: 69.5 kg Accuchecks BSG (last 24hrs): 11/27/19 11/27/19 15:11 18:25 Glucose 190 H POC Glucose 117 H Laboratory Data (last 24hrs): 11/27/19 15:11 Potassium 5.5 H Carbon Dioxide 23 Anion Gap 12.0 H Creatinine 1.12 Est Cr Clr Drug Dosing 36.7 - Recent Pertinent Medications Outpatient Anti-diabetic Regimen: * Metformin 1000 mg PO BIDM * A1c = 6.2% (10/25/2019) Risk Factors for Insulin Resistance: * Steroids: * Solumedrol 125 mg IV x 1 * Solumedrol 40 mg IV Q8H * Diet: * T2DM - Assessment & Plan Assessment & Plan: ASSESSMENT: * 84 yo F admitted secondary to COPD Exacerbation. Pharmacy is consulted for glycemic management. She does use chronic prednisone at home. * Patient is a well-controlled type 2 diabetic on metformin monotherapy as demonstrated by most recent A1c. * She received 125 mg of IV methylprednisolone in the ED and then was ordered 40 mg of IV methylprednisolone ongoing. At the time of the 125 mg dose, she received a 10 unit IV regular insulin bolus. * She did receive a dinner tray and ate some carbohydrates for dinner. Her BSG at this time was 117 mg/dL. Unfortunately, by the time the Novolog was entered, it was too late to try and cover that carbs. Hopefully, the IV insulin bolus provided some coverage of carbohydrates. * With ongoing IV steroids ordered and steroids having their most profound effect on post-prandial BSGs, will be aggressive with Novolog dosing and start patient on high-stress, weight-based correction factor and carb ratio. * Will also order BID Lantus per scale ranging from low-stress to high-stress, weight-based dosing depending on BSG (see eMAR for further details). * Insulin requirements will decrease as steroids are tapered. PLAN FOR INPATIENT GLYCEMIC CONTROL: * Holding outpatient oral diabetes medications * Basal insulin * Lantus 6-18 units SQ BID (see eMAR for further details) * Bolus insulin * NovoLog per scale ACHS or Q6hrs while NPO * Goal Range: Low 110 mg/dL - High 140 mg/dL * Correction Factor: 25 mg/dL/unit * Nutritional / Prandial insulin per carb ratio of 1 unit per 8 grams CHO consumed * Please note that the plan above was derived based on current level of insulin resistance and hospital stress. These recommendations are appropriate for inpatient admission only. Plan of care upon discharge will need to be reassessed to avoid potential outpatient hypo/hyperglycemia. Thank you.
[2019-11-27] MEDS: METOPROLOL TARTRATE 25 MG TAB PO SCH (20:31)
[2019-11-27] MEDS: INSULIN GLARGINE SOLOSTAR 100 UNITS/ML 3 ML PEN SC SCH (20:32)
[2019-11-27 20:39] LABS: BUN Creatinine Ratio 22.4 (10-20); Calcium 9.1 mg/dl (8.5-10.1); Creatinine Clr Calc Pharmacy 36.7 ml/min; Est GFR (African American) 52.4; Est GFR (Non-African American) 45.2; Magnesium 1.9 mg/dl (1.8-2.4); Potassium 5.3 mmol/L (3.5-5.1)
[2019-11-27] MEDS ORDERED: BUDESONIDE 0.5 MG/2 ML VIAL (PULMICORT) INH SCH (21:00)
[2019-11-27] MEDS ORDERED: SODIUM POLYSTYRENE SULFONATE 15G/60ML SUSP PO STA (21:21)
[2019-11-27] MEDS: methylPREDNISolone 40 MG in SYRINGE 0 ML IV SCH (21:26)
--- NOTE | 2019-11-27 21:29 | Communication Note ---
Date of Service: November 27, 2019 Attending addendum: 8 PM labs reviewed Potassium remains elevated 5.3(was 5.5 on admission) Patient received calcium gluconate IV, insulin 10 unit IV with dextrose in ER Got 20 mg p.o. Lasix Ordered for p.o. Kayexalate Repeat BMP in a.m., continue low potassium diet Magnesium level corrected: 1.5 to 1.9 AST/ALT elevated Patient does not have any GI complaints Repeat labs in a.m. Right upper quadrant/liver ultrasound ordered for a.m. Emily Watson MD
[2019-11-28] MEDS: METOPROLOL TARTRATE 25 MG TAB PO SCH ×3 (00:04→10:51)
[2019-11-28] MEDS: IPRATROPIUM BROMIDE NEB SOLN 0.02% 2.5 ML VIAL INH SCH ×2 (03:22→07:11)
[2019-11-28] MEDS: LEVALBUTEROL 1.25MG/0.5ML NEB INH SCH ×7 (03:23→22:48)
[2019-11-28] MEDS: methylPREDNISolone 40 MG in SYRINGE 0 ML IV SCH ×3 (05:57→20:59)
[2019-11-28] MEDS: dilTIAZem HCL 125 MG in DEXTROSE 5% 100 ML IV SCH (06:40)
--- NOTE | 2019-11-28 07:06 | Ultrasound Report ---
US liver HISTORY: 84 years-old Female elevated transaminase acutely elevated LFTs COMPARISON: CT abdomen pelvis 10/21/2019 TECHNIQUE: Multiple real-time sonographic images of the abdominal right upper quadrant were obtained assessing grayscale appearance and color flow FINDINGS: The visualized pancreas is unremarkable. Cholecystectomy. The liver appears unremarkable without mass or intrahepatic biliary ductal dilation. Common bile duct is normal, 5 mm. Mild diffuse cortical thi nning of the right kidney without hydronephrosis. IMPRESSION: 1. Unremarkable right upper quadrant abdominal ultrasound. 2. Cholecystectomy. ACT 112: Negative or not required by law. The above report was generated using voice recognition software. It may contain grammatical, syntax o r spelling errors. Electronically signed by: Freddy Hu M.D. 11/28/2019 7:05 AM
[2019-11-28] MEDS: BUDESONIDE 0.5 MG/2 ML VIAL (PULMICORT) INH SCH ×2 (07:11→19:24)
[2019-11-28 07:16] LABS: Hematocrit (blood only) 27.6 % (37-47); Mean Corpuscular Hemoglobin 23.1 pg (25-34); Mean Corpuscular Volume 79.8 fL (80-100); Mean Platelet Volume 9.4 fL (7.4-10.4); Platelet Count 369 K/uL (130-400); RDW Coefficient of Variation 17.7 % (11.5-14.5); RDW Standard Deviation 50.3 fL (36.4-46.3); Red Blood Count 3.46 M/uL (4.2-5.4); White Blood Count 9.16 K/uL (4.8-10.8)
[2019-11-28 07:58] LABS: Albumin Globulin Ratio 0.9 (0.9-2); Albumin Level 3.1 gm/dl (3.4-5.0); BUN Creatinine Ratio 25.9 (10-20); Bilirubin,Total 0.7 mg/dl (0.2-1); Calcium 8.4 mg/dl (8.5-10.1); Creatinine Clr Calc Pharmacy 42.4 ml/min; Est GFR (African American) 62.3; Est GFR (Non-African American) 53.7; Ferritin 22.9 ng/ml (8-388); Globulin 3.5 gm/dl (2.5-4.0); Magnesium 1.8 mg/dl (1.8-2.4); Total Protein 6.6 gm/dl (6.4-8.2)
[2019-11-28] MEDS: INSULIN ASPART 100 UNITS/ML 3 ML PEN SC SCH ×4 (08:42→21:00)
[2019-11-28] MEDS: INSULIN GLARGINE SOLOSTAR 100 UNITS/ML 3 ML PEN SC SCH ×2 (08:44→21:00)
[2019-11-28] MEDS: DOCUSATE SODIUM 100 MG CAP PO SCH ×2 (08:44→20:59)
[2019-11-28] MEDS: CHOLECALCIFEROL 1,000 UNITS 25 MCG TAB PO SCH (08:45)
[2019-11-28] MEDS: MONTELUKAST SODIUM 10 MG TABLET PO SCH (08:45)
[2019-11-28] MEDS: SERTRALINE HCL 50 MG TABLET PO SCH (08:45)
[2019-11-28] MEDS: APIXABAN 2.5 MG TAB PO SCH ×2 (08:46→20:59)
[2019-11-28] MEDS: POLYETHYLENE (MIRALAX) 17 GM PACK PO SCH (08:46)
--- NOTE | 2019-11-28 09:54 | Pharmacy Report ---
Pharmacy Glycemic Short Note 2 - Date of Service November 28, 2019 - Glycemic Short BSG Results (Last 24 hours): 11/27/19 11/27/19 11/27/19 15:11 18:25 20:07 Glucose 190 H 136 H POC Glucose 117 H 11/27/19 11/28/19 11/28/19 20:22 06:54 07:27 Glucose 170 H POC Glucose 160 H 177 H OUTPATIENT ANTIDIABETIC REGIMEN: * Metformin 1000 mg PO BIDM * A1c = 6.2% (10/25/2019) Risk Factors for Insulin Resistance: * Steroids: * Solumedrol 125 mg IV x 1 * Solumedrol 40 mg IV Q8H ongoing * Diet: * T2DM ASSESSMENT: * 84 yo F admitted secondary to COPD Exacerbation. Pharmacy is consulted for glycemic management. She does use chronic prednisone at home. * Patient is a well-controlled type 2 diabetic on metformin monotherapy as demonstrated by most recent A1c. * She received 125 mg of IV methylprednisolone in the ED and then was ordered 40 mg of IV methylprednisolone ongoing. At the time of the 125 mg dose, she received a 10 unit IV regular insulin bolus for hyperkalemia. * BSGs are well controlled with current orders; Solumedrol 40mg IV q8hrs continues. * Will continue BID Lantus per scale ranging from low-stress to high-stress, weight-based dosing depending on BSG (see eMAR for further details). NovoLog per weight/high stress/steroids parameters. * Insulin requirements will decrease as steroids are tapered. PLAN FOR INPATIENT GLYCEMIC CONTROL: * Hold outpatient oral diabetes medications * Basal insulin * Lantus 6-12-18 units SQ BID; dose based on BSG * BSG < 110 --> 6 units * BSG 110-160 --> 12 units * BSG > 160 --> 18 units * Bolus insulin * NovoLog per scale ACHS or Q6hrs while NPO * Goal Range: Low 110 mg/dL - High 140 mg/dL * Correction Factor: 25 mg/dL/unit * Nutritional / Prandial insulin per carb ratio of 1 unit per 8 grams CHO consumed PLAN FOR DISCHARGE: * A1c is in target range for patient based on age/co-morbidities * No changes needed to outpatient regimen
--- NOTE | 2019-11-28 10:22 | Electrocardiogram Report ---
Test Reason : Blood Pressure : / mmHG Vent. Rate : 079 BPM Atrial Rate : 312 BPM P-R Int : 000 ms QRS Dur : 088 ms QT Int : 368 ms P-R-T Axes : 000 -10 210 degrees QTc Int : 421 ms Atrial fibrillation Abnormal ECG When compared with ECG of 27-NOV-2019 14:52, (unconfirmed) Non-specific change in ST segment in Inferior leads T wave inversion now evident in Inferior leads T wave inversion now evident in Anterior leads Confirmed by Juan Carlos Mast ([id number]) on 11/28/2019 10:22:10 AM Referred By: REFERRED SELF Confirmed By:Conrado Mast
--- NOTE | 2019-11-28 11:40 | Cardiology Consultation ---
Date of Consultation November 28, 2019 Assessment & Plan (1) Acute hypoxemic respiratory failure: Patient in significant distress. We will ask our pulmonary colleagues to evaluate. Rapid COVID test to be performed, doubt that is the inciting factor. We will obtain a noncontrast CT of the chest after COVID unremarkable. Check ABG. (2) Status asthmaticus: (3) Pneumonitis: (4) Acute hyperkalemia: (5) Hypomagnesemia: (6) Acute exacerbation of chronic obstructive pulmonary disease: (7) Atrial fibrillation with RVR: Likely due to the above event. Rate somewhat elevated but likely compensatory given her respiratory status. Eliquis uninterrupted and was documented to be in normal sinus rhythm on November 08. I do believe she would feel better in sinus rhythm, however, I do not believe we will be able to establish sinus rhythm until her breathing has improved. Will change metoprolol to sotalol at this time with the hopes of being able to convert with DC cardioversion once breathing status stabilized Given her breathing history I do not see her as a candidate for amiodarone. Eliquis to be continued uninterrupted. History of Present Illness Reason for Consultation: atrial fibrillation with rapid ventricular response Requesting Physician: Eva Hatfield PA-C Attending Physician: Hayden Contreras MD History of Present Illness It was my pleasure to see Mrs. Jin in consultation today November 28, 2019. She is a very pleasant 84-year-old woman who recently established with our practice after presenting to [facility] in October with new onset atrial fibrillation in the setting of pneumonia. She presents to the hospital on 11/27/2019 with complaints of shortness of breath after inhaling some Lysol spray. She states that she became very short of breath at that time and her breathing continued to worsen so she came into the emergency department. She states that after being short of breath for a few minutes she also felt her heart start to race. Upon presentation was found to be in A. fib with rapid ventricular response. Her metoprolol was changed to every 6 hours, a Cardizem drip was started and she was continued on her Eliquis. Since admission the patient states that her breathing is not any better and she is currently having increased work of breathing. After first being discovered to be in atrial fibrillation she was started on metoprolol, Cardizem and Eliquis anticoagulation. Outpatient DARIA cardioversion was planned however the patient spontaneously converted to normal sinus rhythm on November 08 when she presented for the procedure. She was continued on her medications at that time and states that she has not missed any doses of Eliquis. Allergies Allergy/AdvReac Type Severity Reaction Status Date / Time Cipro Allergy Intermediate hives, Verified 04/25/17 06:31 itching ciprofloxacin Allergy Intermediate hives, Verified 11/09/19 09:32 itching amoxicillin Allergy Mild Itching Verified 11/09/19 09:32 clavulanic acid Allergy Mild Itching Verified 11/09/19 09:32 alendronate sodium AdvReac Intermediate leg pain Verified 11/09/19 09:32 levofloxacin AdvReac Intermediate leg muscle Verified 11/09/19 09:32 pain nitrofurantoin AdvReac Intermediate diarrhea Verified 11/27/19 15:46 [From Macrobid] Home Medications Home Medications Medication Instructions Recorded Confirmed Type budesonide 0.5 mg INHALATION BID 07/30/18 11/27/19 History cholecalciferol (vitamin D3) 5,000 unit PO QAM 07/30/18 11/27/19 History [Vitamin D3] diltiazem HCl 240 mg PO QAM 07/30/18 11/27/19 History docusate sodium [Colace] 100 mg PO BID 07/30/18 11/27/19 History doxycycline hyclate 100 mg PO BID PRN 07/30/18 11/27/19 History furosemide [Lasix] 20 mg PO DAILY PRN 07/30/18 11/27/19 History metformin 1,000 mg PO BID 07/30/18 11/27/19 History prednisone 10 mg PO QAM 07/30/18 11/27/19 History sennosides [Senokot] 8.6 mg PO QDL 07/30/18 11/27/19 History sertraline [Zoloft] 50 mg PO QAM 07/30/18 11/27/19 History tramadol 50 mg PO Q6 PRN 07/30/18 11/27/19 History montelukast [Singulair] 10 mg PO QAM 02/08/19 11/27/19 History omeprazole 20 mg PO HS 05/05/19 11/27/19 History ondansetron 4 mg PO Q8H PRN 06/23/19 11/27/19 History Eliquis 2.5 mg PO BID 10/21/19 11/27/19 History ipratropium-albuterol 3 ml INHALATION Q6 10/21/19 11/27/19 History polyethylene glycol 3350 [Miralax] 8.5 - 17 g PO DAILY 10/21/19 11/27/19 History Oxygen Home 11/08/19 11/27/19 History metoprolol succinate [Toprol XL] 100 mg PO QAM 11/08/19 11/27/19 History prednisone 60 mg PO DIRECTED PRN 11/08/19 11/27/19 History acetaminophen 650 mg PO Q12H PRN 11/09/19 11/27/19 History albuterol sulfate [Ventolin HFA] 1 inh INHALATION QID PRN 11/09/19 11/27/19 History Patient History Medical History Anxiety Arthritis (Chronic) Bronchiectasis (Chronic) right middle lobectomy Chronic steroid use COPD, severe (Chronic) Depression GERD (gastroesophageal reflux disease) (Chronic) HTN (hypertension) (Chronic) Hyperlipidemia (Chronic) "statin intolerance" Nocturnal hypoxemia (Chronic) On home oxygen therapy 2lpm via n/c HS. will use during the day PRN for SOB. Paroxysmal a-fib (Chronic) Pneumonia (Inactive) hx Pulmonary hypertension (Chronic) SBO (small bowel obstruction) (Chronic) no surgery needed Shortness of breath Spinal stenosis (Chronic) T2DM (type 2 diabetes mellitus) Surgical History H/O hernia repair (Chronic) incisional hernia repair History of appendectomy removed with hysterectomy History of bronchoscopy History of cataract surgery (Chronic) bilateral History of cholecystectomy (Chronic) History of colonoscopy S/P epidural steroid injection 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" S/P JAMES-BSO Family History Mother Diabetes Father Lung disease Social History Smoking Status: Never smoker Second Hand Exposure: No; Do You Dip or Chew Tobacco: No; Tobacco Cessation Education Requested by Patient: No Hx Alcohol Use: No Hx Substance Use: No Preferred Language: Wolof Communication Ability: Effective Drum Stenciler Required: No Beliefs That Will Affect Care: None marital status: / Current Living Situation: Alone current occupational status: retired Feels Safe at Home: Yes Safety Concerns: Feels Safe At This Time Review of Systems Review of Systems: All systems reviewed & are unremarkable except as noted in HPI & below Physical Exam Physical Exam: General: Awake, alert and oriented x 3. Moderate respiratory distress. Significant conversational dyspnea. Audible wheezing. HEENT: Normocephalic, atraumatic. Pupils equal, round and reactive to light and accommodation. Extraocular muscles are intact. Anicteric sclera. Moist mucous membranes. Neck: No JVD. No bruit. Cardiovascular: irregularly irregular, unable to appreciate murmur, rub or gallop. Pulmonary: Poor air movement bilaterally with scattered rhonchi and wheezing no rales. Abdomen: Bowel sounds x 4, soft. No rebound, guarding or tenderness. No organomegaly. Extremities: No clubbing, cyanosis or edema. +2 pedal pulses bilaterally. Skin: Warm and dry. Results & Data ([facility]) Vital Signs (Past 12 Hours) Vital Signs Temp Pulse Pulse Resp BP Pulse Ox 11/28/19 10:49 80 94 11/28/19 10:40 36.5 C 93 H 22 148/83 H 94 11/28/19 09:10 87 20 95 11/28/19 07:40 36.3 C L 95 H 18 149/81 H 92 11/28/19 07:11 85 20 91 11/28/19 06:03 78 136/77 11/28/19 04:00 36.7 C 79 18 123/72 95 11/28/19 03:23 87 16 98 11/28/19 00:13 132 H 11/27/19 23:54 36.5 C 127 H 23 132/99 94 Laboratory Results Laboratory Results - last 24 hr 11/27/19 11/27/19 11/27/19 15:11 15:11 15:11 WBC 10.41 RBC 3.77 L Hgb 8.6 L Hct 29.8 L MCV 79.0 L MCH 22.8 L MCHC 28.9 L RDW Std Deviation 50.5 H RDW Coeff of Shahriar 17.9 H Plt Count 418 H MPV 9.3 Immature Gran % (Auto) 0.8 Neut % (Auto) 89.5 Lymph % (Auto) 5.7 [place] % (Auto) 3.9 Eos % (Auto) 0.0 Baso % (Auto) 0.1 Neut # (Auto) 9.32 H Lymph # (Auto) 0.59 L [place] # (Auto) 0.41 Eos # (Auto) 0.00 Baso # (Auto) 0.01 Immature Gran # (Auto) 0.08 H PT 11.1 INR 1.1 APTT 24.2 PTT Ratio 0.9 ABG pH ABG pCO2 ABG pO2 ABG HCO3 ABG O2 Saturation ABG Base Excess Brien Test VBG pH VBG pCO2 VBG pO2 VBG HCO3 VBG O2 Saturation VBG Base Excess Carboxyhemoglobin Barometric Pressure Oxygen Given Sodium 133 L Potassium 5.5 H Chloride 98 Carbon Dioxide 23 Anion Gap 12.0 H BUN 25 H Creatinine 1.12 Est Cr Clr Drug Dosing 36.7 Est GFR ( Amer) 53.0 Est GFR (Non-Af Amer) 45.7 BUN/Creatinine Ratio 22.5 H Glucose 190 H POC Glucose Calcium 8.6 Magnesium 1.5 L Iron TIBC Ferritin Total Bilirubin 0.7 AST 144 H ALT 172 H Alkaline Phosphatase 82 Troponin I < 0.015 NT-Pro-B Natriuret Pep Total Protein 7.2 Albumin 3.1 L Globulin 4.1 H Albumin/Globulin Ratio 0.8 L Lipase 73 Procalcitonin COVID-19 Eval Order COVID-19 PCR 11/27/19 11/27/19 11/27/19 15:11 15:54 18:25 WBC RBC Hgb Hct MCV MCH MCHC RDW Std Deviation RDW Coeff of Shahriar Plt Count MPV Immature Gran % (Auto) Neut % (Auto) Lymph % (Auto) [place] % (Auto) Eos % (Auto) Baso % (Auto) Neut # (Auto) Lymph # (Auto) [place] # (Auto) Eos # (Auto) Baso # (Auto) Immature Gran # (Auto) PT INR APTT PTT Ratio ABG pH ABG pCO2 ABG pO2 ABG HCO3 ABG O2 Saturation ABG Base Excess Brien Test VBG pH 7.37 VBG pCO2 41 VBG pO2 45 VBG HCO3 23 VBG O2 Saturation 75.6 VBG Base Excess -1.7 Carboxyhemoglobin 0.0 Barometric Pressure 734.6 Oxygen Given Sodium Potassium Chloride Carbon Dioxide Anion Gap BUN Creatinine Est Cr Clr Drug Dosing Est GFR ( Amer) Est GFR (Non-Af Amer) BUN/Creatinine Ratio Glucose POC Glucose 117 H Calcium Magnesium Iron TIBC Ferritin Total Bilirubin AST ALT Alkaline Phosphatase Troponin I NT-Pro-B Natriuret Pep Total Protein Albumin Globulin Albumin/Globulin Ratio Lipase Procalcitonin COVID-19 Eval Order COVID-19 PCR 11/27/19 11/27/19 11/28/19 20:07 20:22 06:54 WBC 9.16 RBC 3.46 L Hgb 8.0 L Hct 27.6 L MCV 79.8 L MCH 23.1 L MCHC 29.0 L RDW Std Deviation 50.3 H RDW Coeff of Shahriar 17.7 H Plt Count 369 MPV 9.4 Immature Gran % (Auto) Neut % (Auto) Lymph % (Auto) [place] % (Auto) Eos % (Auto) Baso % (Auto) Neut # (Auto) Lymph # (Auto) [place] # (Auto) Eos # (Auto) Baso # (Auto) Immature Gran # (Auto) PT INR APTT PTT Ratio ABG pH ABG pCO2 ABG pO2 ABG HCO3 ABG O2 Saturation ABG Base Excess Brien Test VBG pH VBG pCO2 VBG pO2 VBG HCO3 VBG O2 Saturation VBG Base Excess Carboxyhemoglobin Barometric Pressure Oxygen Given Sodium 132 L Potassium 5.3 H Chloride 99 Carbon Dioxide 26 Anion Gap 7.0 BUN 25 H Creatinine 1.13 Est Cr Clr Drug Dosing 36.7 Est GFR ( Amer) 52.4 Est GFR (Non-Af Amer) 45.2 BUN/Creatinine Ratio 22.4 H Glucose 136 H POC Glucose 160 H Calcium 9.1 Magnesium 1.9 Iron TIBC Ferritin Total Bilirubin AST ALT Alkaline Phosphatase Troponin I NT-Pro-B Natriuret Pep Total Protein Albumin Globulin Albumin/Globulin Ratio Lipase Procalcitonin COVID-19 Eval Order COVID-19 [facility] 11/28/19 11/28/19 11/28/19 06:54 07:27 11:25 WBC RBC Hgb Hct MCV MCH MCHC RDW Std Deviation RDW Coeff of Shahriar Plt Count MPV Immature Gran % (Auto) Neut % (Auto) Lymph % (Auto) [place] % (Auto) Eos % (Auto) Baso % (Auto) Neut # (Auto) Lymph # (Auto) [place] # (Auto) Eos # (Auto) Baso # (Auto) Immature Gran # (Auto) PT INR APTT PTT Ratio ABG pH ABG pCO2 ABG pO2 ABG HCO3 ABG O2 Saturation ABG Base Excess Brien Test VBG pH VBG pCO2 VBG pO2 VBG HCO3 VBG O2 Saturation VBG Base Excess Carboxyhemoglobin Barometric Pressure Oxygen Given Sodium 133 L Potassium 4.0 D Chloride 99 Carbon Dioxide 27 Anion Gap 6.0 BUN 25 H Creatinine 0.98 Est Cr Clr Drug Dosing 42.4 Est GFR ( Amer) 62.3 Est GFR (Non-Af Amer) 53.7 BUN/Creatinine Ratio 25.9 H Glucose 170 H POC Glucose 177 H 319 H* Calcium 8.4 L Magnesium 1.8 Iron 9 L TIBC 377 Ferritin 22.9 Total Bilirubin 0.7 AST 119 H ALT 179 H Alkaline Phosphatase 75 Troponin I NT-Pro-B Natriuret Pep Total Protein 6.6 Albumin 3.1 L Globulin 3.5 Albumin/Globulin Ratio 0.9 Lipase Procalcitonin COVID-19 Eval Order COVID-19 PCR 11/28/19 11/28/19 11/28/19 11:26 11:45 11:45 WBC RBC Hgb Hct MCV MCH MCHC RDW Std Deviation RDW Coeff of Shahriar Plt Count MPV Immature Gran % (Auto) Neut % (Auto) Lymph % (Auto) [place] % (Auto) Eos % (Auto) Baso % (Auto) Neut # (Auto) Lymph # (Auto) [place] # (Auto) Eos # (Auto) Baso # (Auto) Immature Gran # (Auto) PT INR APTT PTT Ratio ABG pH ABG pCO2 ABG pO2 ABG HCO3 ABG O2 Saturation ABG Base Excess Brien Test VBG pH VBG pCO2 VBG pO2 VBG HCO3 VBG O2 Saturation VBG Base Excess Carboxyhemoglobin Barometric Pressure Oxygen Given Sodium Potassium Chloride Carbon Dioxide Anion Gap BUN Creatinine Est Cr Clr Drug Dosing Est GFR ( Amer) Est GFR (Non-Af Amer) BUN/Creatinine Ratio Glucose POC Glucose 310 H* Calcium Magnesium Iron TIBC Ferritin Total Bilirubin AST ALT Alkaline Phosphatase Troponin I NT-Pro-B Natriuret Pep Total Protein Albumin Globulin Albumin/Globulin Ratio Lipase Procalcitonin COVID-19 Eval Order Covid19 Done at [facility] COVID-19 PCR NEGATIVE 11/28/19 11/28/19 11/28/19 12:03 12:03 12:04 WBC RBC Hgb Hct MCV MCH MCHC RDW Std Deviation RDW Coeff of Shahriar Plt Count MPV Immature Gran % (Auto) Neut % (Auto) Lymph % (Auto) [place] % (Auto) Eos % (Auto) Baso % (Auto) Neut # (Auto) Lymph # (Auto) [place] # (Auto) Eos # (Auto) Baso # (Auto) Immature Gran # (Auto) PT INR APTT PTT Ratio ABG pH Cancelled ABG pCO2 Cancelled ABG pO2 Cancelled ABG HCO3 Cancelled ABG O2 Saturation Cancelled ABG Base Excess Cancelled Brien Test Cancelled VBG pH VBG pCO2 VBG pO2 VBG HCO3 VBG O2 Saturation VBG Base Excess Carboxyhemoglobin Barometric Pressure Cancelled Oxygen Given Cancelled Sodium Potassium Chloride Carbon Dioxide Anion Gap BUN Creatinine Est Cr Clr Drug Dosing Est GFR ( Amer) Est GFR (Non-Af Amer) BUN/Creatinine Ratio Glucose POC Glucose Calcium Magnesium Iron TIBC Ferritin Total Bilirubin AST ALT Alkaline Phosphatase Troponin I NT-Pro-B Natriuret Pep 8034 H Total Protein Albumin Globulin Albumin/Globulin Ratio Lipase Procalcitonin 0.12 COVID-19 Eval Order COVID-19 PCR 11/28/19 12:13 WBC RBC Hgb Hct MCV MCH MCHC RDW Std Deviation RDW Coeff of Shahriar Plt Count MPV Immature Gran % (Auto) Neut % (Auto) Lymph % (Auto) [place] % (Auto) Eos % (Auto) Baso % (Auto) Neut # (Auto) Lymph # (Auto) [place] # (Auto) Eos # (Auto) Baso # (Auto) Immature Gran # (Auto) PT INR APTT PTT Ratio ABG pH 7.39 ABG pCO2 41 ABG pO2 74 L ABG HCO3 24 ABG O2 Saturation 92.8 ABG Base Excess -0.7 Brien Test Pos VBG pH VBG pCO2 VBG pO2 VBG HCO3 VBG O2 Saturation VBG Base Excess Carboxyhemoglobin Barometric Pressure 737.0 Oxygen Given 3L Sodium Potassium Chloride Carbon Dioxide Anion Gap BUN Creatinine Est Cr Clr Drug Dosing Est GFR ( Amer) Est GFR (Non-Af Amer) BUN/Creatinine Ratio Glucose POC Glucose Calcium Magnesium Iron TIBC Ferritin Total Bilirubin AST ALT Alkaline Phosphatase Troponin I NT-Pro-B Natriuret Pep Total Protein Albumin Globulin Albumin/Globulin Ratio Lipase Procalcitonin COVID-19 Eval Order COVID-19 PCR Medications Administered Current Inpatient Medications Acetaminophen (Tylenol) 650 mg PO Q4H PRN PRN Reason: Pain or Fever Stop: 12/27/19 16:37 Al Hydrox/Mg Hydrox/Simethicone (Maalox) 15 ml PO Q4H PRN PRN Reason: Dyspepsia Stop: 12/27/19 16:37 Albuterol (Duoneb) 3 ml NEB Q4H PRN PRN Reason: Wheezing Stop: 12/28/19 11:44 Albuterol (Ventolin 0.083% 2.5mg/3ml) 10 mg NEB NOW STA Stop: 11/28/19 13:23 Last Admin: 11/28/19 13:24 Dose: 10 mg Documented by: Apixaban (Eliquis) 2.5 mg PO BID JULIANNE Stop: 12/27/19 20:59 Last Admin: 11/28/19 08:46 Dose: 2.5 mg Documented by: Budesonide (Pulmicort Respules) 0.5 mg INH BIDR JULIANNE Stop: 12/27/19 20:59 Last Admin: 11/28/19 07:11 Dose: 0.5 mg Documented by: Dextrose (Dextrose 50%) 25 - 50 ml IV UD PRN; Protocol PRN Reason: Hypoglycemia Protocol Stop: 12/27/19 18:13 Docusate Sodium (Colace) 100 mg PO BID JULIANNE Stop: 12/27/19 20:59 Last Admin: 11/28/19 08:44 Dose: 100 mg Documented by: Furosemide (Lasix) 20 mg PO DAILY PRN PRN Reason: Swelling Stop: 12/27/19 18:59 Glucagon (Glucagen) 1 mg SQ UD PRN; Protocol PRN Reason: Hypoglycemia Protocol Stop: 12/27/19 18:13 Glucose (Dex4 Glucose) 4 - 8 tabs PO UD PRN; Protocol PRN Reason: Hypoglycemia Protocol Stop: 12/27/19 18:13 Glucose (Glucose 40%) 15 - 30 gm PO UD PRN; Protocol PRN Reason: Hypoglycemia Protocol Stop: 12/27/19 18:13 Diltiazem HCl 125 mg/ Dextrose 125 mls @ 5 mls/hr IV .Q24H [facility]; Protocol Stop: 12/27/19 15:14 Last Titration: 11/28/19 07:02 Dose: 5 mg/hr, 5 mls/hr Documented by: Methylprednisolone 40 mg/ (Syringe) 0.64 mls @ 1.5 mls/min IV Q8H [facility] Stop: 12/27/19 21:59 Last Admin: 11/28/19 13:03 Dose: 1.5 mls/min Documented by: Insulin Aspart (Novolog Flexpen) 0 units SC ACHS [facility]; Protocol Stop: 12/27/19 18:59 Last Admin: 11/28/19 12:00 Dose: 13 units Documented by: Insulin Glargine (Lantus Solostar Pen) 0 units SC BID [facility]; Protocol Stop: 12/27/19 20:59 Last Admin: 11/28/19 08:44 Dose: 18 units Documented by: Levalbuterol HCl (Xopenex 1.25mg/0.5ml Neb) 1.25 mg INH Q4R [facility] Stop: 12/27/19 18:13 Last Admin: 11/28/19 10:47 Dose: 1.25 mg Documented by: Magnesium Hydroxide (Milk Of Magnesia) 30 ml PO Q12H PRN PRN Reason: Constipation Stop: 12/27/19 16:37 Metoprolol Tartrate (Lopressor) 25 mg PO Q6H [facility] Stop: 12/27/19 16:59 Last Admin: 11/28/19 10:51 Dose: 25 mg Documented by: Miscellaneous (Carbohydrates For Hypoglycemia) 15 - 30 gm PO UD PRN PRN Reason: Hypoglycemia Protocol Stop: 12/27/19 18:13 Miscellaneous Information (Consult Glycemic Management Pharmacy) 1 ea N/A UD PRN; Protocol PRN Reason: Consult Stop: 12/27/19 18:24 Montelukast Sodium (Singulair) 10 mg PO QAM [facility] Stop: 12/28/19 08:59 Last Admin: 11/28/19 08:45 Dose: 10 mg Documented by: Nitroglycerin (Nitrostat) 0.4 mg SL UD PRN PRN Reason: Chest Pain Stop: 12/27/19 16:37 Ondansetron HCl (Zofran) 4 mg IV Q6H PRN PRN Reason: Nausea Stop: 12/27/19 16:37 Pantoprazole Sodium (Protonix) 40 mg PO HS [facility] Stop: 12/27/19 20:59 Last Admin: 11/27/19 19:59 Dose: 40 mg Documented by: Polyethylene Glycol (Miralax Powder Packet) 17 gm PO DAILY PRN PRN Reason: Constipation Stop: 12/27/19 16:37 Polyethylene Glycol (Miralax Powder Packet) 17 gm PO DAILY JULIANNE Stop: 12/28/19 08:59 Last Admin: 11/28/19 08:46 Dose: 17 gm Documented by: Sennosides (Senokot) 8.6 mg PO QDL [facility] Stop: 12/28/19 11:29 Last Admin: 11/28/19 12:05 Dose: Not Given Documented by: Sertraline HCl (Zoloft) 50 mg PO QAM [facility] Stop: 12/28/19 08:59 Last Admin: 11/28/19 08:45 Dose: 50 mg Documented by: Sotalol HCl (Betapace) 80 mg PO BID [facility] Stop: 12/28/19 11:29 Last Admin: 11/28/19 12:04 Dose: 80 mg Documented by: Tramadol HCl (Ultram) 50 mg PO Q6 PRN PRN Reason: Pain Stop: 12/27/19 18:13 Vitamin D (Vitamin D3) 5,000 units PO QAM [facility] Stop: 12/28/19 08:59 Last Admin: 11/28/19 08:45 Dose: 5,000 units Documented by:
[2019-11-28] MEDS ORDERED: INSULIN GLARGINE SOLOSTAR 100 UNITS/ML 3 ML PEN SC ONE (12:00)
[2019-11-28] MEDS: SOTALOL HCL 80 MG TAB PO SCH ×2 (12:04→20:59)
[2019-11-28] MEDS: SENNA 8.6 MG TAB PO SCH (12:05)
[2019-11-28 12:22] LABS: Base Excess ABG -0.7 mEq/L (-9-1.8); HCO3 ABG 24 mmol/L (19-24); Oxygen Saturation ABG 92.8 % (90-95); PCO2 ABG 41 mmHg (35-46); PO2 ABG 74 mmHg (80-95); pH ABG 7.39 (7.35-7.45)
[2019-11-28 12:29] LABS: Allen Test Pos (Pos)
[2019-11-28] MEDS ORDERED: ALBUTEROL 0.083% NEBU SOLN 3 ML VIAL NEB STA ×2 (13:13→13:22)
--- NOTE | 2019-11-28 13:28 | Pulmonary Consultation ---
Date of Consultation November 28, 2019 Assessment & Plan (1) Status asthmaticus: She is very clearly bronchospastic at this time. I am going to start her on a 1 hour nebulizer treatment with albuterol. She does have atrial fibrillation and we will have to be very cautious and keep a close eye on how she is doing. I suspect the Lycelle did trigger her underlying asthma. She needs to avoid known allergens. Her proBNP is very elevated to 8034. Procalcitonin is negative. I am going to give her 40 mg of IV Lasix. Continue IV Solu-Medrol 40 mg 3 times daily for the time being. She is very hyperglycemic. Continue Pulmicort nebulizations. If her breathing is improved tomorrow, can consider switching her to an inhaled corticosteroid and long- acting beta agonist combination. CT chest to be obtained after nebulizer treatment. Pulmonary will continue to follow. Thank you for the consult. (2) Acute hypoxemic respiratory failure: (3) Atrial fibrillation: (4) Shortness of breath: History of Present Illness Reason for Consultation: Status asthmaticus Requesting Physician: Dr. Hudson Attending Physician: Hayden Contreras MD History of Present Illness 84-year-old female with a past medical history of chronic hypoxemic respiratory failure on 2 L of oxygen at nighttime, bronchiectasis, paroxysmal atrial fibrillation on Eliquis, type 2 diabetes mellitus, hyperlipidemia, CKD stage III and spinal stenosis who presented to the hospital due to shortness of breath that started yesterday after cleaning her shower with Lysol. She notes that she does occasionally get triggered by strong fumes and has a history of asthma. This was a Lysol compound that she has never used before and she splashed it all over the shower floor and left it there for a long period of time. She noticed that she was becoming short of breath throughout the day and it became worse at night. She feels that her chest is tight and that she cannot catch her breath. She notes that she uses 5 treatment today on her good days. She is very short of breath at baseline and unable to walk up her steps. She has a chair to go up the stairwell. She does not use oxygen during the day. She notes that she follows with [facility] pulmonary medicine group at [facility]. She also notes that she had a surgery in her right lung many years ago at "[facility]" for bronchiectasis. Notably, she was discharged from the hospital in October for Klebsiella bacteremia. She is also noted to have a history of COPD, but she denies any history of tobacco abuse. She notes that her father was a very heavy smoker. I do not have any pulmonary function testing. Presumably PFTs were done in [facility]. She also has a history of atrial fibrillation and is followed by cardiology. She is currently on diltiazem and sotalol for atrial fibrillation. COVID-19 testing completed today which was negative. No significant leukocytosis noted. She is currently on IV Solu-Medrol for asthma and possible chemical pneumonitis. Chest x-ray with evidence of mild cardiomegaly and stable right-sided pleural calcification. Progressive interstitial thickening was noted. CT chest from 10/23/2019 demonstrated groundglass opacities in the left lower lobe and consolidation. I do not appreciate any significant bronchiectasis on that exam. Allergies Allergy/AdvReac Type Severity Reaction Status Date / Time Cipro Allergy Intermediate hives, Verified 04/25/17 06:31 itching ciprofloxacin Allergy Intermediate hives, Verified 11/09/19 09:32 itching amoxicillin Allergy Mild Itching Verified 11/09/19 09:32 clavulanic acid Allergy Mild Itching Verified 11/09/19 09:32 alendronate sodium AdvReac Intermediate leg pain Verified 11/09/19 09:32 levofloxacin AdvReac Intermediate leg muscle Verified 11/09/19 09:32 pain nitrofurantoin AdvReac Intermediate diarrhea Verified 11/27/19 15:46 [From Macrobid] Home Medications Home Medications Medication Instructions Recorded Confirmed Type budesonide 0.5 mg INHALATION BID 07/30/18 11/27/19 History cholecalciferol (vitamin D3) 5,000 unit PO QAM 07/30/18 11/27/19 History [Vitamin D3] diltiazem HCl 240 mg PO QAM 07/30/18 11/27/19 History docusate sodium [Colace] 100 mg PO BID 07/30/18 11/27/19 History doxycycline hyclate 100 mg PO BID PRN 07/30/18 11/27/19 History furosemide [Lasix] 20 mg PO DAILY PRN 07/30/18 11/27/19 History metformin 1,000 mg PO BID 07/30/18 11/27/19 History prednisone 10 mg PO QAM 07/30/18 11/27/19 History sennosides [Senokot] 8.6 mg PO QDL 07/30/18 11/27/19 History sertraline [Zoloft] 50 mg PO QAM 07/30/18 11/27/19 History tramadol 50 mg PO Q6 PRN 07/30/18 11/27/19 History montelukast [Singulair] 10 mg PO QAM 02/08/19 11/27/19 History omeprazole 20 mg PO HS 05/05/19 11/27/19 History ondansetron 4 mg PO Q8H PRN 06/23/19 11/27/19 History Eliquis 2.5 mg PO BID 10/21/19 11/27/19 History ipratropium-albuterol 3 ml INHALATION Q6 10/21/19 11/27/19 History polyethylene glycol 3350 [Miralax] 8.5 - 17 g PO DAILY 10/21/19 11/27/19 History Oxygen Home 11/08/19 11/27/19 History metoprolol succinate [Toprol XL] 100 mg PO QAM 11/08/19 11/27/19 History prednisone 60 mg PO DIRECTED PRN 11/08/19 11/27/19 History acetaminophen 650 mg PO Q12H PRN 11/09/19 11/27/19 History albuterol sulfate [Ventolin HFA] 1 inh INHALATION QID PRN 11/09/19 11/27/19 History Patient History Medical History Anxiety Arthritis (Chronic) Bronchiectasis (Chronic) right middle lobectomy Chronic steroid use COPD, severe (Chronic) Depression GERD (gastroesophageal reflux disease) (Chronic) HTN (hypertension) (Chronic) Hyperlipidemia (Chronic) "statin intolerance" Nocturnal hypoxemia (Chronic) On home oxygen therapy 2lpm via n/c HS. will use during the day PRN for SOB. Paroxysmal a-fib (Chronic) Pneumonia (Inactive) hx Pulmonary hypertension (Chronic) SBO (small bowel obstruction) (Chronic) no surgery needed Shortness of breath Spinal stenosis (Chronic) T2DM (type 2 diabetes mellitus) Surgical History H/O hernia repair (Chronic) incisional hernia repair History of appendectomy removed with hysterectomy History of bronchoscopy History of cataract surgery (Chronic) bilateral History of cholecystectomy (Chronic) History of colonoscopy S/P epidural steroid injection 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" S/P JAMES-BSO Family History Mother Diabetes Father Lung disease Social History Smoking Status: Never smoker Second Hand Exposure: No; Do You Dip or Chew Tobacco: No; Tobacco Cessation Education Requested by Patient: No Hx Alcohol Use: No Hx Substance Use: No Preferred Language: Turkmen Communication Ability: Effective Director Treasurer Required: No Beliefs That Will Affect Care: None marital status: / Current Living Situation: Alone current occupational status: retired Feels Safe at Home: Yes Safety Concerns: Feels Safe At This Time Review of Systems Review of Systems: All systems reviewed & are unremarkable except as noted in HPI & below Physical Exam Constitutional: Patient is clearly short of breath. She is tripoding at times. She is alert and oriented x3. Currently saturating 94% on 3 L oxygen mask Eyes: PERRL, conjunctivae normal, anicteric sclerae ENMT: external ear and nose normal, oropharynx normal Neck: trachea midline, no thyromegaly Respiratory: Diffuse expiratory wheezes. Tachypneic. Cardiovascular: Irregularly irregular. Normal rate. No significant edema. Gastrointestinal (Abdomen): normal bowel sounds, soft, nontender, no hepatosplenomegaly Musculoskeletal: no cyanosis or clubbing, extremities motor strength 5/5 Skin: no rashes, warm and dry Neurologic: PERRL, EOMI, accommodation nl, no face palsy, no dysarthria Psychiatric: A+Ox3, euthymic affect Results & Data Results & Data ([facility] [place]) Vital Signs (Past 12 Hours) Vital Signs Temp Pulse Resp BP Pulse Ox 11/28/19 10:49 80 94 11/28/19 10:40 97.7 F 93 H 22 148/83 H 94 11/28/19 09:10 87 20 95 11/28/19 07:40 97.3 F L 95 H 18 149/81 H 92 11/28/19 07:11 85 20 91 08/08/20 06:03 78 136/77 11/28/19 04:00 98.1 F 79 18 123/72 95 11/28/19 03:23 87 16 98 I reviewed her vital signs, labs and chest imaging. PG Care Time/CCT Total # of Minutes Spent Total Time Spent with Patient: Total time spent is greater than 50% in coordination of care (as documented) at patient's floor/unit and/or counseling patient: Coding Level of Care Code 62900 Initial Inpt Care Lvl 3 Diagnoses Status asthmaticus J45.902 Acute hypoxemic respiratory failure J96.01 Atrial fibrillation I48.91 Shortness of breath R06.02
[2019-11-28] MEDS ORDERED: FUROSEMIDE 40 MG in SYRINGE 0 ML IV ONE (14:00)
--- NOTE | 2019-11-28 14:30 | Hospitalist Progress Note ---
Date of Service November 28, 2019 Assessment & Plan (1) Toxic effect of fumes: She was exposed to fumes of Lysol for about half an hour continuously Presented to ER with increasing shortness of breath and wheezing Presented with acute respiratory failure with hypoxia secondary to COPD exacerbation and which is due to exposure to toxic fumes of Lysol Has been getting nebulized bronchodilators, intravenous steroid and oxygen Appreciate pulmonary input and recommendation Awaiting CT of the chest at this moment Clinically not any better (2) Acute respiratory failure with hypoxia: (3) Pneumonitis: Doubt any infection (4) COPD with exacerbation: Has exacerbation without any infection (5) Atrial fibrillation with rapid ventricular response: Presenting hypoxemia may have contributed rapid atrial fibrillation Continue apixaban for stroke prophylaxis, [id number] 3 Continue diltiazem drip, metoprolol tartrate 25 mg every 6 hours Cardiology consult-appreciate input and recommendation Echocardiogram Patient was to undergo DARIA/cardioversion secondary to recurrent PAF 2 weeks ago; however, returned to NSR (6) Hypomagnesemia: Replace, to receive 2 g mag sulfate in ED add 1 g magnesium ordered for a total of 3 g Repeat @ 8pm and in a.m. Daughter discussed recurrent hypomagnesemia and if she would benefit from oral supplementation as outpatient She has not been taking Lasix, but she does take daily omeprazole Monitor magnesium on daily basis, consider oral supplementation as outpatient Magnesium level is corrected (7) Acute hyperkalemia: K 5.5, Na 133 not on amy/arb, or potassium supplements receiving calcium gluconate 1g and d5 in ED IVF 75cc/hr, low K diet Potassium level is normalized (8) T2DM (type 2 diabetes mellitus): last a1c 6.2 09/2019 Hold metformin Lantus/NovoLog per protocol Place glycemic pharmacy consult due to anticipate hyperglycemia in setting of steroid use (9) HTN (hypertension): Bp stable continue metoprolol and diltiazem (10) Anemia: H/H 8.6 and 29.8 Microcytic hypochromic indicies check iron panel (11) DVT prophylaxis: apixaban Disposition: admit to tele Follow up: PCP Dr. Torre upon discharge The daughter is updated Admission and Anticipated Discharge Date Admission Date: November 27, 2019 Subjective 11/28/2019 The patient was seen and examined in telemetry unit She has a history of COPD and A. fib and was admitted with feelings of Lysol inhalation continuously for half an hour while cleaning the spill Short of breath this morning with diffuse wheezing but good managed to communicate with me Denies any pain Saturation has been more than 90 on 2 L of oxygen during examination Review of Systems Review of Systems: All systems reviewed and are unremarkable except as noted below Respiratory: + cough, + chest congestion, + dyspnea and + dyspnea on exertion Cardiovascular: + dyspnea at rest, + dyspnea on exertion and + palpitations; no chest pain Physical Exam Physical Exam: Lying in bed with moderate distress due to shortness of breath and wheezing Constitutional: well developed, well nourished, + acute distress and + ill appearing Eyes: PERRL, conjunctivae normal, anicteric sclerae ENMT: external ear and nose normal, oropharynx normal Neck: trachea midline, no thyromegaly Respiratory: + respiratory distress, + labored breathing and + uses accessory muscles Auscultation: + diminished lung sounds and + wheezes Cardiovascular: Rate/Rhythm: + irregularly irregular Gastrointestinal (Abdomen): Inspection/Auscultation: abdomen normal to inspection and normal bowel sounds Percussion/Palpation: abdomen soft; abdomen nontender Musculoskeletal: No acute arthritis involving any joints Neurologic: moves all extremities; no focal motor deficits Alert, awake and oriented x3 Results & Data Results & Data ([facility]) Vital Signs (Past 12 Hours) Vital Signs Temp Pulse Resp BP Pulse Ox 11/28/19 13:25 77 20 97 11/28/19 10:49 80 94 11/28/19 10:40 36.5 C 93 H 22 148/83 H 94 11/28/19 09:10 87 20 95 11/28/19 07:40 36.3 C L 95 H 18 149/81 H 92 11/28/19 07:11 85 20 91 11/28/19 06:03 78 136/77 11/28/19 04:00 36.7 C 79 18 123/72 95 11/28/19 03:23 87 16 98 Laboratory Results Short CBC 11/27/19 11/28/19 Range/Units 15:11 06:54 WBC 10.41 9.16 (4.8-10.8) K/uL Hgb 8.6 L 8.0 L (12.0-16.0) g/dL Hct 29.8 L 27.6 L (37-47) % Plt Count 418 H 369 (130-400) K/uL BMP 11/27/19 11/27/19 11/28/19 15:11 20:07 06:54 Sodium 133 L 132 L 133 L Potassium 5.5 H 5.3 H 4.0 D Chloride 98 99 99 Carbon Dioxide 23 26 27 BUN 25 H 25 H 25 H Creatinine 1.12 1.13 0.98 Glucose 190 H 136 H 170 H Calcium 8.6 9.1 8.4 L Cardiac Enzymes 11/27/19 Range/Units 15:11 Troponin I < 0.015 (0-0.045) ng/ml Liver Function 11/27/19 11/28/19 Range/Units 15:11 06:54 Total Bilirubin 0.7 0.7 (0.2-1) mg/dl AST 144 H 119 H (15-37) U/L ALT 172 H 179 H (12-78) U/L Alkaline Phosphatase 82 75 (45-117) U/L Albumin 3.1 L 3.1 L (3.4-5.0) gm/dl Medications Administered Current Inpatient Medications Acetaminophen (Tylenol) 650 mg PO Q4H PRN PRN Reason: Pain or Fever Stop: 12/27/19 16:37 Al Hydrox/Mg Hydrox/Simethicone (Maalox) 15 ml PO Q4H PRN PRN Reason: Dyspepsia Stop: 12/27/19 16:37 Albuterol (Duoneb) 3 ml NEB Q4H PRN PRN Reason: Wheezing Stop: 12/28/19 11:44 Apixaban (Eliquis) 2.5 mg PO BID [facility] Stop: 12/27/19 20:59 Last Admin: 11/28/19 08:46 Dose: 2.5 mg Documented by: Budesonide (Pulmicort Respules) 0.5 mg INH BIDR [facility] Stop: 12/27/19 20:59 Last Admin: 11/28/19 07:11 Dose: 0.5 mg Documented by: Dextrose (Dextrose 50%) 25 - 50 ml IV UD PRN; Protocol PRN Reason: Hypoglycemia Protocol Stop: 12/27/19 18:13 Docusate Sodium (Colace) 100 mg PO BID [facility] Stop: 12/27/19 20:59 Last Admin: 11/28/19 08:44 Dose: 100 mg Documented by: Furosemide (Lasix) 20 mg PO DAILY PRN PRN Reason: Swelling Stop: 12/27/19 18:59 Glucagon (Glucagen) 1 mg SQ UD PRN; Protocol PRN Reason: Hypoglycemia Protocol Stop: 12/27/19 18:13 Glucose (Dex4 Glucose) 4 - 8 tabs PO UD PRN; Protocol PRN Reason: Hypoglycemia Protocol Stop: 12/27/19 18:13 Glucose (Glucose 40%) 15 - 30 gm PO UD PRN; Protocol PRN Reason: Hypoglycemia Protocol Stop: 12/27/19 18:13 Diltiazem HCl 125 mg/ Dextrose 125 mls @ 5 mls/hr IV .Q24H JULIANNE; Protocol Stop: 12/27/19 15:14 Last Titration: 11/28/19 07:02 Dose: 5 mg/hr, 5 mls/hr Documented by: Methylprednisolone 40 mg/ (Syringe) 0.64 mls @ 1.5 mls/min IV Q8H JULIANNE Stop: 12/27/19 21:59 Last Admin: 11/28/19 13:03 Dose: 1.5 mls/min Documented by: Insulin Aspart (Novolog Flexpen) 0 units SC ACHS [facility]; Protocol Stop: 12/27/19 18:59 Last Admin: 11/28/19 12:00 Dose: 13 units Documented by: Insulin Aspart (Novolog Flexpen) 0 units SC TODAY@0000,0400 [facility]; Protocol Stop: 11/29/19 04:01 Insulin Glargine (Lantus Solostar Pen) 0 units SC BID [facility]; Protocol Stop: 12/27/19 20:59 Last Admin: 11/28/19 08:44 Dose: 18 units Documented by: Levalbuterol HCl (Xopenex 1.25mg/0.5ml Neb) 1.25 mg INH Q4R JULIANNE Stop: 12/27/19 18:13 Last Admin: 11/28/19 10:47 Dose: 1.25 mg Documented by: Magnesium Hydroxide (Milk Of Magnesia) 30 ml PO Q12H PRN PRN Reason: Constipation Stop: 12/27/19 16:37 Metoprolol Tartrate (Lopressor) 25 mg PO Q6H JULIANNE Stop: 12/27/19 16:59 Last Admin: 11/28/19 10:51 Dose: 25 mg Documented by: Miscellaneous (Carbohydrates For Hypoglycemia) 15 - 30 gm PO UD PRN PRN Reason: Hypoglycemia Protocol Stop: 12/27/19 18:13 Miscellaneous Information (Consult Glycemic Management Pharmacy) 1 ea N/A UD PRN; Protocol PRN Reason: Consult Stop: 12/27/19 18:24 Montelukast Sodium (Singulair) 10 mg PO QAM [facility] Stop: 12/28/19 08:59 Last Admin: 11/28/19 08:45 Dose: 10 mg Documented by: Nitroglycerin (Nitrostat) 0.4 mg SL UD PRN PRN Reason: Chest Pain Stop: 12/27/19 16:37 Ondansetron HCl (Zofran) 4 mg IV Q6H PRN PRN Reason: Nausea Stop: 12/27/19 16:37 Pantoprazole Sodium (Protonix) 40 mg PO HS [facility] Stop: 12/27/19 20:59 Last Admin: 11/27/19 19:59 Dose: 40 mg Documented by: Polyethylene Glycol (Miralax Powder Packet) 17 gm PO DAILY PRN PRN Reason: Constipation Stop: 12/27/19 16:37 Polyethylene Glycol (Miralax Powder Packet) 17 gm PO DAILY [facility] Stop: 12/28/19 08:59 Last Admin: 11/28/19 08:46 Dose: 17 gm Documented by: Sennosides (Senokot) 8.6 mg PO QDL [facility] Stop: 12/28/19 11:29 Last Admin: 11/28/19 12:05 Dose: Not Given Documented by: Sertraline HCl (Zoloft) 50 mg PO QAM [facility] Stop: 12/28/19 08:59 Last Admin: 11/28/19 08:45 Dose: 50 mg Documented by: Sotalol HCl (Betapace) 80 mg PO BID [facility] Stop: 12/28/19 11:29 Last Admin: 11/28/19 12:04 Dose: 80 mg Documented by: Tramadol HCl (Ultram) 50 mg PO Q6 PRN PRN Reason: Pain Stop: 12/27/19 18:13 Vitamin D (Vitamin D3) 5,000 units PO QAM [facility] Stop: 12/28/19 08:59 Last Admin: 11/28/19 08:45 Dose: 5,000 units Documented by:
--- NOTE | 2019-11-28 14:53 | CT Scan Report ---
CT chest wo con CT DOSE: 597.60 mGy.cm HISTORY: hypoxia TECHNIQUE: Multiaxial CT images of the chest were performed without contrast. A dose lowering techni que was utilized adhering to the principles of ALARA. COMPARISON: 10/23/2019 FINDINGS: Mildly progressive left pleural effusion. Slightly progressive right pleural effusion with associated basilar atelectatic pulmonary change. Heart remains moderately enlarged. Calcific densities right base is unchanged. Prominent central pulm onary vasculature is unchanged. IMPRESSION: 1. Mildly progressive left and to a lesser extent right pleural effusion. 2. Prominent pulmonary vasculature suggesting a developing component of congestive failure. ACT 112: Negative or not required by law. The above report was generated using voice recognition software. It may contain grammatical, syntax or spelling errors. Electronically signed by: Rojelio Sorto M.D. 11/28/2019 2:51 PM
[2019-11-28] MEDS: PANTOprazole 40 MG TAB PO SCH (20:59)
[2019-11-29] MEDS: INSULIN ASPART 100 UNITS/ML 3 ML PEN SC SCH ×6 (00:13→21:11)
[2019-11-29] MEDS: ALBUT/IPRATROP 3MG/0.5MG NEB 3 ML VIAL NEB PRN ×3 (01:19→15:25)
[2019-11-29] MEDS ORDERED: LORazepam 0.5 MG TAB PO STA (01:40)
[2019-11-29] MEDS ORDERED: FUROSEMIDE 20 MG in SYRINGE 0 ML IV ONE ×2 (01:41→12:45)
[2019-11-29] MEDS ORDERED: LORazepam 0.25 MG/0.5 ML VIAL IV STA (02:30)
[2019-11-29] MEDS ORDERED: LORazepam 2 MG/4 ML VIAL ONE (02:33)
[2019-11-29] MEDS: LEVALBUTEROL 1.25MG/0.5ML NEB INH SCH ×2 (03:25→07:11)
[2019-11-29 06:26] LABS: Hematocrit (blood only) 29.4 % (37-47); Hemoglobin 8.3 g/dL (12.0-16.0); Immature Granulocytes # (auto) 0.05 K/uL (0.00-0.02); Immature Granulocytes % (auto) 0.3 %; Lymphocytes # (auto) 0.63 K/uL (1.2-3.4); Lymphocytes % (auto) 4.1 %; Mean Corpuscular Hemoglobin 22.4 pg (25-34); Mean Corpuscular Hgb Conc 28.2 g/dL (32-36); Mean Corpuscular Volume 79.5 fL (80-100); Mean Platelet Volume 9.1 fL (7.4-10.4); Monocytes # (auto) 1.22 K/uL (0.11-0.59); Neutrophils # (auto) 13.33 K/uL (1.4-6.5); Neutrophils % (auto) 87.6 %; Nucleated RBC # (auto) 0.02 K/uL (0-0); Nucleated RBC % (auto) 0.1 %; Platelet Count 371 K/uL (130-400); RDW Coefficient of Variation 17.5 % (11.5-14.5); RDW Standard Deviation 50.4 fL (36.4-46.3); White Blood Count 15.23 K/uL (4.8-10.8)
[2019-11-29] MEDS: methylPREDNISolone 40 MG in SYRINGE 0 ML IV SCH ×2 (06:30→20:34)
[2019-11-29] MEDS: BUDESONIDE 0.5 MG/2 ML VIAL (PULMICORT) INH SCH ×2 (07:10→19:22)
[2019-11-29 07:23] LABS: BUN Creatinine Ratio 39.2 (10-20); Calcium 8.3 mg/dl (8.5-10.1); Creatinine Clr Calc Pharmacy 40.5 ml/min; Est GFR (Non-African American) 51.8; Magnesium 1.8 mg/dl (1.8-2.4); Phosphorus 4.4 mg/dl (2.5-4.9)
[2019-11-29] MEDS: APIXABAN 2.5 MG TAB PO SCH ×2 (07:39→20:34)
[2019-11-29] MEDS: MONTELUKAST SODIUM 10 MG TABLET PO SCH (07:39)
[2019-11-29] MEDS: CHOLECALCIFEROL 1,000 UNITS 25 MCG TAB PO SCH (07:39)
[2019-11-29] MEDS: SERTRALINE HCL 50 MG TABLET PO SCH (07:40)
[2019-11-29] MEDS: SOTALOL HCL 80 MG TAB PO SCH ×2 (07:40→20:34)
[2019-11-29] MEDS: DOCUSATE SODIUM 100 MG CAP PO SCH ×2 (07:40→21:07)
[2019-11-29] MEDS: SENNA 8.6 MG TAB PO SCH (07:40)
[2019-11-29] MEDS: POLYETHYLENE (MIRALAX) 17 GM PACK PO SCH (07:42)
[2019-11-29] MEDS ORDERED: POTASSIUM CHLORIDE 20 MEQ TABCR PO STA ×2 (08:19→11:27)
--- NOTE | 2019-11-29 09:12 | Pharmacy Report ---
Pharmacy Glycemic Short Note 2 - Date of Service November 29, 2019 - Glycemic Short BSG Results (Last 24 hours): 11/28/19 11/28/19 11/28/19 11:25 11:26 16:21 Glucose POC Glucose 319 H* 310 H* 73 11/28/19 11/29/19 11/29/19 20:16 00:11 04:19 Glucose POC Glucose 71 91 90 11/29/19 11/29/19 05:41 07:03 Glucose 70 POC Glucose 77 OUTPATIENT ANTIDIABETIC REGIMEN: * Metformin 1000 mg PO BIDM * A1c = 6.2% (10/25/2019) Risk Factors for Insulin Resistance: * Steroids: * Solumedrol 40 mg IV Q8H ongoing * Diet: * T2DM ASSESSMENT: * 84 yo F admitted secondary to COPD Exacerbation. Pharmacy is consulted for glycemic management. She does use chronic prednisone at home. * Patient is a well-controlled type 2 diabetic on metformin monotherapy as demonstrated by most recent A1c. * Currently receiving Solumedrol 40mg IV Q8hrs; leading to severe steroid induced hyperglycemia * Pt received 69 units of insulin over the past 24hrs * 42 units of basal (Lantus) * 27 units of bolus (NovoLog) * BSGs [id number] * Increased insulin regimen significantly yesterday prior to lunch secondary to BSG of 319/310. BSGs now slightly below goal range for inpatient targets. Will hold off on basal insulin this AM - will give with lunch. Decrease basal insulin by at least 15% * Insulin requirements will decrease as steroids are tapered. PLAN FOR INPATIENT GLYCEMIC CONTROL: * Hold outpatient oral diabetes medications * Basal insulin * Lantus 6-12-18 units SQ BID; dose based on BSG * BSG < 110 --> 6 units * BSG 110-160 --> 12 units * BSG > 160 --> 18 units * Bolus insulin * NovoLog per scale ACHS or Q6hrs while NPO * Goal Range: Low 110 mg/dL - High 140 mg/dL * Correction Factor: 25 mg/dL/unit * Nutritional / Prandial insulin per carb ratio of 1 unit per 8 grams CHO consumed PLAN FOR DISCHARGE: * A1c is in target range for patient based on age/co-morbidities * No changes needed to outpatient regimen
[2019-11-29] MEDS ORDERED: LEVALBUTEROL HCL 1.25 MG/3 ML NEB INH PRN (10:05)
--- NOTE | 2019-11-29 10:47 | Pulmonology Progress Note ---
Date of Service November 29, 2019 Assessment & Plan (1) Status asthmaticus: She continues to be wheezy. I have decreased her Solu-Medrol to 40 mg twice daily. It seems that cleaning with Lysol and bleach products triggered her asthma. She needs to avoid known allergens. Her proBNP yesterday was elevated. She responded well to IV Lasix. I discussed with the hospitalist is going to give her another 20 mg of IV Lasix.. Procalcitonin is negative. Continue Pulmicort nebulizations. I will add Brovana to her medication list as a long-acting beta agonist. CT chest with evidence of bilateral effusions, left greater than right. Continue diuresis. Repeat chest x-ray tomorrow. Pulmonary will continue to follow. (2) Acute hypoxemic respiratory failure: (3) Atrial fibrillation: (4) Shortness of breath: Admission and Anticipated Discharge Date Admission Date: November 27, 2019 Subjective Patient feels less short of breath today. She is still very wheezy. She slept with BiPAP last night. No fevers overnight. Denies any significant nausea. She does have some mild chest tightness. L Review of Systems Review of Systems: All systems reviewed & are unremarkable except as noted in HPI & below Physical Exam Constitutional: Patient is clearly short of breath. She is tripoding at times. She is alert and oriented x3. Currently saturating 94% on 3 L oxygen mask Eyes: PERRL, conjunctivae normal, anicteric sclerae ENMT: external ear and nose normal, oropharynx normal Neck: trachea midline, no thyromegaly Respiratory: Diffuse expiratory wheezes. Mildly tachypneic. Cardiovascular: Irregularly irregular. Normal rate. No significant edema. Gastrointestinal (Abdomen): normal bowel sounds, soft, nontender, no hepatosplenomegaly Musculoskeletal: no cyanosis or clubbing, extremities motor strength 5/5 Skin: no rashes, warm and dry Neurologic: PERRL, EOMI, accommodation nl, no face palsy, no dysarthria Psychiatric: A+Ox3, euthymic affect Results & Data Results & Data ([facility]) Vital Signs (Past 12 Hours) Vital Signs Temp Pulse Pulse Pulse Pulse Resp BP 11/29/19 10:26 73 24 11/29/19 10:24 73 24 11/29/19 07:20 97.7 F 71 22 158/98 H 11/29/19 07:15 71 71 21 11/29/19 03:25 66 21 11/29/19 03:17 97.7 F 64 18 118/64 11/29/19 02:48 73 30 H 11/29/19 01:19 74 26 H 11/28/19 23:20 75 11/28/19 23:09 98.1 F 61 20 139/81 11/28/19 22:48 85 18 Pulse Ox 11/29/19 10:26 98 11/29/19 10:24 98 11/29/19 07:20 100 11/29/19 07:15 98 11/29/19 03:25 97 11/29/19 03:17 98 11/29/19 02:48 97 11/29/19 01:19 11/28/19 23:20 11/28/19 23:09 92 11/28/19 22:48 93 I reviewed vital signs, labs and imaging PG Care Time/CCT Total # of Minutes Spent Total Time Spent with Patient: Total time spent is greater than 50% in coordination of care (as documented) at patient's floor/unit and/or counseling patient: Coding Level of Care Code 86829 Subseq Hosp Care Lvl 3 Diagnoses Status asthmaticus J45.902 Acute hypoxemic respiratory failure J96.01 Atrial fibrillation I48.91 Shortness of breath R06.02
--- NOTE | 2019-11-29 11:00 | Electrocardiogram Report ---
Test Reason : Blood Pressure : / mmHG Vent. Rate : 061 BPM Atrial Rate : 061 BPM P-R Int : 162 ms QRS Dur : 090 ms QT Int : 470 ms P-R-T Axes : 086 -11 215 degrees QTc Int : 473 ms Normal sinus rhythm Nonspecific ST and T wave abnormality Abnormal ECG When compared with ECG of 28-NOV-2019 07:04, Sinus rhythm has replaced Atrial fibrillation QT has lengthened Confirmed by Juan Carlos Mast ([id number]) on 11/29/2019 11:00:33 AM Referred By: REFERRED SELF Confirmed By:Conrado Mast
--- NOTE | 2019-11-29 11:05 | Electrocardiogram Report ---
Test Reason : Blood Pressure : / mmHG Vent. Rate : 070 BPM Atrial Rate : 070 BPM P-R Int : 174 ms QRS Dur : 096 ms QT Int : 444 ms P-R-T Axes : 063 -06 169 degrees QTc Int : 479 ms Normal sinus rhythm Low voltage QRS Nonspecific T wave abnormality Prolonged QT Abnormal ECG When compared with ECG of 28-NOV-2019 07:04, Sinus rhythm has replaced Atrial fibrillation QT has lengthened Confirmed by Juan Carlos Mast ([id number]) on 11/29/2019 11:05:11 AM Referred By: REFERRED SELF Confirmed By:Conrado Mast
--- NOTE | 2019-11-29 11:13 | Electrocardiogram Report ---
Test Reason : Blood Pressure : / mmHG Vent. Rate : 117 BPM Atrial Rate : 072 BPM P-R Int : 000 ms QRS Dur : 098 ms QT Int : 328 ms P-R-T Axes : 000 -22 119 degrees QTc Int : 457 ms Poor data quality, interpretation may be adversely affected Atrial fibrillation with rapid ventricular response Poor R wave progression, consider anterior MA vs. lead placement vs. LVH Abnormal ECG When compared with ECG of 08-NOV-2019 05:33, Atrial fibrillation has replaced Sinus rhythm Vent. rate has increased BY 48 BPM Confirmed by Juan Carlos Mast ([id number]) on 11/29/2019 11:13:27 AM Referred By: Confirmed By:Conrado Mast
[2019-11-29] MEDS ORDERED: INSULIN GLARGINE SOLOSTAR 100 UNITS/ML 3 ML PEN SC SCH ×2 (11:30)
[2019-11-29] MEDS: POTASSIUM CHLORIDE / WTR 10 MEQ/100 ML PLCT IV SCH ×2 (11:33→12:55)
[2019-11-29] MEDS: dilTIAZem HCL 125 MG in DEXTROSE 5% 100 ML IV SCH (11:38)
--- NOTE | 2019-11-29 12:40 | Hospitalist Progress Note ---
Date of Service November 29, 2019 Assessment & Plan (1) Toxic effect of fumes: She was exposed to fumes of Lysol for about half an hour continuously Presented to ER with increasing shortness of breath and wheezing Presented with acute respiratory failure with hypoxia secondary to COPD exacerbation and which is due to exposure to toxic fumes of Lysol Has been getting nebulized bronchodilators, intravenous steroid and oxygen Appreciate pulmonary input and recommendation CT scan of the chest showed:1. Mildly progressive left and to a lesser extent right pleural effusion. 2. Prominent pulmonary vasculature suggesting a developing component of congestive failure. Received s dose of intravenous Lasix of 40 mg yesterday Clinically a lot better We will give 20 of intravenous Lasix today Continue with current management (2) Acute respiratory failure with hypoxia: As above (3) Pneumonitis: Doubt any infection (4) COPD with exacerbation: Has exacerbation without any infection Continue steroid (5) Atrial fibrillation with rapid ventricular response: Presenting hypoxemia may have contributed rapid atrial fibrillation Continue apixaban for stroke prophylaxis, [id number] 3 Continue diltiazem drip, metoprolol tartrate 25 mg every 6 hours Cardiology consult-appreciate input and recommendation Echocardiogram: Atrial fibrillation, normal LV chamber size and wall thickness, EF 55 to 60%, no segmental LV wall motion abnormalities, aortic valve sclerosis mild without significant stenosis and mild left atrial enlargement Patient was to undergo DARIA/cardioversion secondary to recurrent PAF 2 weeks ago; however, returned to NSR Has been on sotalol since yesterday Reverted to sinus rhythm this morning We will continue current management (6) Hypomagnesemia: Replace, to receive 2 g mag sulfate in ED add 1 g magnesium ordered for a total of 3 g Repeat @ 8pm and in a.m. Daughter discussed recurrent hypomagnesemia and if she would benefit from oral supplementation as outpatient She has not been taking Lasix, but she does take daily omeprazole Monitor magnesium on daily basis, consider oral supplementation as outpatient Magnesium level is corrected (7) Acute hyperkalemia: K 5.5, Na 133 not on amy/arb, or potassium supplements receiving calcium gluconate 1g and d5 in ED IVF 75cc/hr, low K diet Received Lasix last evening and will have 20 mg IV this morning Potassium noted to be low at 3.0 and will give supplement and repeat in the morning (8) T2DM (type 2 diabetes mellitus): last a1c 6.2 09/2019 Hold metformin Lantus/NovoLog per protocol Place glycemic pharmacy consult due to anticipate hyperglycemia in setting of steroid use (9) HTN (hypertension): Bp stable continue metoprolol and diltiazem (10) Anemia: H/H 8.6 and 29.8 Microcytic hypochromic indicies check iron panel-Low Iron Will start Feso4 (11) DVT prophylaxis: apixaban Disposition: admit to tele Follow up: PCP Dr. Torre upon discharge The daughter is updated Admission and Anticipated Discharge Date Admission Date: November 27, 2019 Subjective 11/28/2019 The patient was seen and examined in telemetry unit She has a history of COPD and A. fib and was admitted with feelings of Lysol inhalation continuously for half an hour while cleaning the spill Short of breath this morning with diffuse wheezing but good managed to communicate with me Denies any pain Saturation has been more than 90 on 2 L of oxygen during examination 11/29/2019 The patient was seen and examined in telemetry unit She has been feeling a lot better today with less wheezing and less shortness of breath She required BiPAP at nighttime to maintain saturation this morning saturating well with nasal cannula Denies any fever and/or chills Review of Systems Review of Systems: All systems reviewed and are unremarkable except as noted below Respiratory: + cough, + chest congestion, + dyspnea and + dyspnea on exertion Cardiovascular: + dyspnea at rest and + dyspnea on exertion; no chest pain and no palpitations Physical Exam Physical Exam: Lying in bed with minimal shortness of breath Constitutional: well developed, well nourished, + acute distress and + ill appearing Eyes: PERRL, conjunctivae normal, anicteric sclerae ENMT: external ear and nose normal, oropharynx normal Neck: trachea midline, no thyromegaly Respiratory: + respiratory distress, + labored breathing and + uses accessory muscles Auscultation: + diminished lung sounds and + wheezes Cardiovascular: Rate/Rhythm: regular rate, regular rhythm and + irregularly irregular Gastrointestinal (Abdomen): Inspection/Auscultation: abdomen normal to inspection and normal bowel sounds Percussion/Palpation: abdomen soft; abdomen nontender Musculoskeletal: No acute arthritis involving any joints Neurologic: moves all extremities; no focal motor deficits Alert, awake and oriented x3 Results & Data Results & Data ([facility]) Vital Signs (Past 12 Hours) Vital Signs Temp Pulse Pulse Pulse Pulse Resp BP 11/29/19 11:12 36.6 C 66 22 136/66 11/29/19 10:26 73 24 11/29/19 10:24 73 24 11/29/19 07:20 36.5 C 71 22 158/98 H 11/29/19 07:15 71 71 21 11/29/19 03:25 66 21 11/29/19 03:17 36.5 C 64 18 118/64 11/29/19 02:48 73 30 H 11/29/19 01:19 74 26 H Pulse Ox 11/29/19 11:12 99 11/29/19 10:26 98 11/29/19 10:24 98 11/29/19 07:20 100 11/29/19 07:15 98 11/29/19 03:25 97 11/29/19 03:17 98 11/29/19 02:48 97 11/29/19 01:19 Laboratory Results Short CBC 11/29/19 Range/Units 05:41 WBC 15.23 H (4.8-10.8) K/uL Hgb 8.3 L (12.0-16.0) g/dL Hct 29.4 L (37-47) % Plt Count 371 (130-400) K/uL BMP 11/29/19 05:41 Sodium 136 Potassium 3.0 L D Chloride 97 L Carbon Dioxide 29 BUN 40 H D Creatinine 1.01 Glucose 70 Calcium 8.3 L Medications Administered Current Inpatient Medications Acetaminophen (Tylenol) 650 mg PO Q4H PRN PRN Reason: Pain or Fever Stop: 12/27/19 16:37 Al Hydrox/Mg Hydrox/Simethicone (Maalox) 15 ml PO Q4H PRN PRN Reason: Dyspepsia Stop: 12/27/19 16:37 Albuterol (Duoneb) 3 ml NEB Q4H PRN PRN Reason: Wheezing Stop: 12/28/19 11:44 Last Admin: 11/29/19 10:22 Dose: 3 ml Documented by: Apixaban (Eliquis) 2.5 mg PO BID [facility] Stop: 12/27/19 20:59 Last Admin: 11/29/19 07:39 Dose: 2.5 mg Documented by: Budesonide (Pulmicort Respules) 0.5 mg INH BIDR [facility] Stop: 09/06/20 20:59 Last Admin: 11/29/19 07:10 Dose: 0.5 mg Documented by: Dextrose (Dextrose 50%) 25 - 50 ml IV UD PRN; Protocol PRN Reason: Hypoglycemia Protocol Stop: 12/27/19 18:13 Docusate Sodium (Colace) 100 mg PO BID [facility] Stop: 12/27/19 20:59 Last Admin: 11/29/19 07:40 Dose: 100 mg Documented by: Formoterol Fumarate (Perforomist) 20 mcg INH BIDR [facility] Stop: 12/29/19 18:59 Furosemide (Lasix) 20 mg PO DAILY PRN PRN Reason: Swelling Stop: 12/27/19 18:59 Last Admin: 11/29/19 07:40 Dose: 20 mg Documented by: Glucagon (Glucagen) 1 mg SQ UD PRN; Protocol PRN Reason: Hypoglycemia Protocol Stop: 12/27/19 18:13 Glucose (Dex4 Glucose) 4 - 8 tabs PO UD PRN; Protocol PRN Reason: Hypoglycemia Protocol Stop: 12/27/19 18:13 Glucose (Glucose 40%) 15 - 30 gm PO UD PRN; Protocol PRN Reason: Hypoglycemia Protocol Stop: 12/27/19 18:13 Diltiazem HCl 125 mg/ Dextrose 125 mls @ 5 mls/hr IV .Q24H [facility]; Protocol Stop: 12/27/19 15:14 Last Admin: 11/29/19 11:38 Dose: Not Given Documented by: Methylprednisolone 40 mg/ (Syringe) 0.64 mls @ 1.5 mls/min IV Q12H [facility] Stop: 12/29/19 20:59 Furosemide 20 mg/ Syringe 2 mls @ 4 mls/min IV ONE ONE Stop: 11/29/19 12:46 Insulin Aspart (Novolog Flexpen) 0 units SC ACHS [facility]; Protocol Stop: 12/27/19 18:59 Last Admin: 11/29/19 11:38 Dose: 8 units Documented by: Insulin Glargine (Lantus Solostar Pen) 0 units SC BID [facility]; Protocol Stop: 12/27/19 20:59 Last Admin: 11/28/19 21:00 Dose: 6 units Documented by: Levalbuterol HCl (Xopenex 1.25mg/3ml Neb) 1.25 mg INH Q4R PRN PRN Reason: shortness of breath Stop: 12/27/19 18:13 Magnesium Hydroxide (Milk Of Magnesia) 30 ml PO Q12H PRN PRN Reason: Constipation Stop: 12/27/19 16:37 Metoprolol Tartrate (Lopressor) 25 mg PO Q6H [facility] Stop: 12/27/19 16:59 Last Admin: 11/28/19 10:51 Dose: 25 mg Documented by: Miscellaneous (Carbohydrates For Hypoglycemia) 15 - 30 gm PO UD PRN PRN Reason: Hypoglycemia Protocol Stop: 12/27/19 18:13 Miscellaneous Information (Consult Glycemic Management Pharmacy) 1 ea N/A UD PRN; Protocol PRN Reason: Consult Stop: 12/27/19 18:24 Montelukast Sodium (Singulair) 10 mg PO QAM [facility] Stop: 12/28/19 08:59 Last Admin: 11/29/19 07:39 Dose: 10 mg Documented by: Nitroglycerin (Nitrostat) 0.4 mg SL UD PRN PRN Reason: Chest Pain Stop: 12/27/19 16:37 Ondansetron HCl (Zofran) 4 mg IV Q6H PRN PRN Reason: Nausea Stop: 12/27/19 16:37 Pantoprazole Sodium (Protonix) 40 mg PO HS [facility] Stop: 12/27/19 20:59 Last Admin: 11/28/19 20:59 Dose: 40 mg Documented by: Polyethylene Glycol (Miralax Powder Packet) 17 gm PO DAILY PRN PRN Reason: Constipation Stop: 12/27/19 16:37 Polyethylene Glycol (Miralax Powder Packet) 17 gm PO DAILY [facility] Stop: 12/28/19 08:59 Last Admin: 11/29/19 07:42 Dose: 17 gm Documented by: Sennosides (Senokot) 8.6 mg PO QDL [facility] Stop: 12/28/19 11:29 Last Admin: 11/29/19 07:40 Dose: 8.6 mg Documented by: Sertraline HCl (Zoloft) 50 mg PO QAM [facility] Stop: 12/28/19 08:59 Last Admin: 11/29/19 07:40 Dose: 50 mg Documented by: Sotalol HCl (Betapace) 80 mg PO BID [facility] Stop: 12/28/19 11:29 Last Admin: 08/09/20 07:40 Dose: 80 mg Documented by: Tramadol HCl (Ultram) 50 mg PO Q6 PRN PRN Reason: Pain Stop: 12/27/19 18:13 Vitamin D (Vitamin [facility]3) [facility] Stop: 12/28/19 08:59 Last Admin: 11/29/19 07:39 Dose: 5,000 units Documented by:
--- NOTE | 2019-11-29 13:55 | Cardiology Progress Note ---
Date of Service November 29, 2019 Assessment & Plan (1) Acute hypoxemic respiratory failure: Appreciate pulmonology input. Patient now significantly improved clinically Will defer further management to our pulmonary colleagues (2) Status asthmaticus: (3) Pneumonitis: (4) Acute hyperkalemia: (5) Hypomagnesemia: (6) Acute exacerbation of chronic obstructive pulmonary disease: (7) Atrial fibrillation with RVR: Spontaneously converted to normal sinus rhythm last evening. QTC somewhat elevated we will continue to monitor with sotalol loading. Daily EKG. Continue to monitor on telemetry. Continue Eliquis. Subjective Patient seen and examined, chart reviewed. States that she is feeling much better today. Breathing has significantly improved and no longer working hard to breathe but states it is not quite back to baseline. Denies chest pain, palpitations, lightheadedness, dizziness or syncope. Telemetry reviewed: Spontaneously converted to normal sinus rhythm overnight. Twelve-lead EKG: Normal sinus rhythm with a QTC of 479 ms Review of Systems Review of Systems: All systems reviewed & are unremarkable except as noted in HPI & below Physical Exam Physical Exam: General: Awake, alert and oriented x 3. No acute distress. HEENT: Normocephalic, atraumatic. Pupils equal, round and reactive to light and accommodation. Extraocular muscles are intact. Anicteric sclera. Moist mucous membranes. Neck: No JVD. No bruit. Cardiovascular: Regular. Positive S-4. Normal S-1 and S-2. No S-3. 3/6 mid to late systolic ejection murmur, greatest at the right sternal border, second intercostal space with radiation to the bilateral carotids. No rubs. Pulmonary: Increased air movement bilaterally with scant wheezing and rhonchi. Abdomen: Bowel sounds x 4, soft. No rebound, guarding or tenderness. No organomegaly. Extremities: No clubbing, cyanosis or edema. +2 pedal pulses bilaterally. Skin: Warm and dry. Results & Data Vital Signs (Past 12 Hours) Vital Signs Temp Pulse Pulse Pulse Pulse Resp BP 11/29/19 11:12 36.6 C 66 22 136/66 11/29/19 10:26 73 24 11/29/19 10:24 73 24 11/29/19 07:20 36.5 C 71 22 158/98 H 11/29/19 07:15 71 71 21 11/29/19 03:25 66 21 11/29/19 03:17 36.5 C 64 18 118/64 11/29/19 02:48 73 30 H Pulse Ox 11/29/19 11:12 99 11/29/19 10:26 98 11/29/19 10:24 98 11/29/19 07:20 100 11/29/19 07:15 98 11/29/19 03:25 97 11/29/19 03:17 98 11/29/19 02:48 97
[2019-11-29] MEDS: FORMOTEROL 20 MCG/2 ML VIAL INH SCH (19:22)
[2019-11-29] MEDS: PANTOprazole 40 MG TAB PO SCH (20:34)
[2019-11-29] MEDS: INSULIN GLARGINE SOLOSTAR 100 UNITS/ML 3 ML PEN SC SCH (21:12)
[2019-11-30] MEDS: ALBUT/IPRATROP 3MG/0.5MG NEB 3 ML VIAL NEB PRN ×2 (01:01→06:58)
[2019-11-30] MEDS: FORMOTEROL 20 MCG/2 ML VIAL INH SCH ×2 (06:58→19:01)
[2019-11-30] MEDS: BUDESONIDE 0.5 MG/2 ML VIAL (PULMICORT) INH SCH ×2 (06:58→18:59)
[2019-11-30 07:29] LABS: Hematocrit (blood only) 30.6 % (37-47); Hemoglobin 8.6 g/dL (12.0-16.0); Immature Granulocytes # (auto) 0.05 K/uL (0.00-0.02); Immature Granulocytes % (auto) 0.3 %; Lymphocytes # (auto) 0.79 K/uL (1.2-3.4); Lymphocytes % (auto) 5.5 %; Mean Corpuscular Hemoglobin 22.6 pg (25-34); Mean Corpuscular Hgb Conc 28.1 g/dL (32-36); Mean Corpuscular Volume 80.5 fL (80-100); Mean Platelet Volume 9.1 fL (7.4-10.4); Monocytes % (auto) 7.6 %; Neutrophils # (auto) 12.45 K/uL (1.4-6.5); Neutrophils % (auto) 86.6 %; Nucleated RBC # (auto) 0.05 K/uL (0-0); Nucleated RBC % (auto) 0.3 %; Platelet Count 394 K/uL (130-400); RDW Coefficient of Variation 17.7 % (11.5-14.5); RDW Standard Deviation 51.8 fL (36.4-46.3); White Blood Count 14.39 K/uL (4.8-10.8)
[2019-11-30] MEDS ORDERED: INSULIN GLARGINE SOLOSTAR 100 UNITS/ML 3 ML PEN SC ONE (07:30)
[2019-11-30 07:47] LABS: BUN Creatinine Ratio 42.6 (10-20); Calcium 8.7 mg/dl (8.5-10.1); Creatinine Clr Calc Pharmacy 46.9 ml/min; Est GFR (African American) 71.9; Magnesium 1.9 mg/dl (1.8-2.4); Potassium 3.9 mmol/L (3.5-5.1)
[2019-11-30] MEDS: methylPREDNISolone 40 MG in SYRINGE 0 ML IV SCH ×2 (08:11→21:24)
[2019-11-30] MEDS: MONTELUKAST SODIUM 10 MG TABLET PO SCH (08:11)
[2019-11-30] MEDS: APIXABAN 2.5 MG TAB PO SCH ×2 (08:11→21:22)
[2019-11-30] MEDS: SOTALOL HCL 80 MG TAB PO SCH ×2 (08:11→21:22)
[2019-11-30] MEDS: INSULIN ASPART 100 UNITS/ML 3 ML PEN SC SCH ×4 (08:11→21:32)
[2019-11-30] MEDS: SERTRALINE HCL 50 MG TABLET PO SCH (08:12)
[2019-11-30] MEDS: CHOLECALCIFEROL 1,000 UNITS 25 MCG TAB PO SCH (08:12)
[2019-11-30] MEDS: POLYETHYLENE (MIRALAX) 17 GM PACK PO SCH (08:12)
[2019-11-30] MEDS: DOCUSATE SODIUM 100 MG CAP PO SCH ×2 (08:12→21:41)
--- NOTE | 2019-11-30 08:31 | Pulmonology Progress Note ---
Date of Service November 30, 2019 Assessment & Plan (1) Status asthmaticus: --Acute hypoxic respiratory failure Likely secondary to asthma exacerbation Continue with steroids, inhaled bronchodilators O2 supplementation to keep O2 saturation between 88 to 92% BiPAP nightly and PRN shortness of breath Patient did diurese well after Lasix which was given yesterday. --Chronic right-sided volume loss Patient CT chest did does show right-sided chronic volume loss along with pleural calcification on the right base. Etiology of this loss is unclear. PFT as an outpatient would be beneficial to see if she will qualify for trilogy. Patient does have a eye physician at [facility]. Plan: Continue with diuresis as tolerated. Continue with Solu-Medrol. Can transition to p.o. prednisone starting tomorrow Patient should be discharged on budesonide and Perforomist nebulized to be used twice daily as an outpatient on top of albuterol inhalers ABG today to see if the PCO2 is elevated. Please note the above document was generated using voice recognition software. It may contain grammatical, syntax or spelling errors. (2) Acute hypoxemic respiratory failure: (3) Atrial fibrillation: (4) Shortness of breath: Admission and Anticipated Discharge Date Admission Date: November 27, 2019 Subjective Patient seen and examined at bedside. No acute distress, no adverse events overnight. Patient states she is feeling much better compared to yesterday. She diuresed well. Denies any chest pain, no dizziness, no headache. Good appetite. Eating well. Review of Systems Review of Systems: All systems reviewed & are unremarkable except as noted in HPI & below Physical Exam Physical Exam: Constitutional: No acute distress HEENT: EOMI, PERRLA Respiratory system: Decreased air entry bilaterally, no rhonchi, no crackles, mild expiratory wheeze appreciated bilaterally CVS: S1-S2 positive, no murmurs or gallops, distant heart sounds Abdomen: Soft, nontender, nondistended, positive bowel sounds x4 Extremities: +2 pulses bilaterally radialis/ dorsalis pedis, no cyanosis, no edema Neuro: Awake alert oriented x3 Psych: Normal mood and affect G/U: Positive Contreras Skin: no rashes, warm and dry Lymphatic: no cervical or axillary lymphadenopathy Results & Data Results & Data ([facility]) Vital Signs (Past 12 Hours) Vital Signs Temp Pulse Pulse Resp BP BP Pulse Ox 08/10/20 07:24 36.8 C 76 20 149/72 H 96 11/30/19 07:03 70 19 97 11/30/19 03:47 36.6 C 62 18 122/75 98 11/30/19 01:04 69 20 93 11/30/19 00:00 66 11/29/19 23:47 36.8 C 73 18 155/92 H 95 11/29/19 21:45 69 24 96 11/30/19 06:11 11/30/19 06:11 PG Care Time/CCT Total # of Minutes Spent Total Time Spent with Patient: Total time spent is greater than 50% in coordination of care (as documented) at patient's floor/unit and/or counseling patient: Coding Level of Care Code 31016 Subseq Hosp Care Lvl 3 Diagnoses Status asthmaticus J45.902 Acute hypoxemic respiratory failure J96.01 Atrial fibrillation I48.91 Shortness of breath R06.02
--- NOTE | 2019-11-30 08:48 | Pharmacy Report ---
Pharmacy Glycemic Short Note 2 - Date of Service November 30, 2019 - Glycemic Short BSG Results (Last 24 hours): 11/29/19 11/29/19 11/29/19 11:11 16:11 20:38 Glucose POC Glucose 207 H 126 H 87 11/30/19 11/30/19 06:11 07:22 Glucose 87 POC Glucose 89 OUTPATIENT ANTIDIABETIC REGIMEN: * Metformin 1000 mg PO BIDM * A1c = 6.2% (10/25/2019) Risk Factors for Insulin Resistance: * Steroids: Methylprednisolone 40 mg IV Q8H tapered to q12 starting 11/28 * IVF: diltiazem drip mixed in D5W * Diet: T2DM ASSESSMENT: 11/29 * Trend noted x3 days with lunch BSG significantly elevated >190 mg/dL (possibly 2nd effect of methylprednisolone admin in AM) with all other BSG's either in or below goal range * Will tighten Novolog CHO ratio with breakfast but will loosen CHO ratio for all other checks * AM fasting BSG below goal range, at 89 mg/dL. Patient received 24 units of basal insulin yesterday. Will reduce today and ongoing 11/28 * 84 yo F admitted secondary to COPD Exacerbation. Pharmacy is consulted for glycemic management. She does use chronic prednisone at home. * Patient is a well-controlled type 2 diabetic on metformin monotherapy as demonstrated by most recent A1c. * Currently receiving Solumedrol 40mg IV Q8hrs; leading to severe steroid induced hyperglycemia * Pt received 69 units of insulin over the past 24hrs * 42 units of basal (Lantus) * 27 units of bolus (NovoLog) * BSGs [id number] * Increased insulin regimen significantly yesterday prior to lunch secondary to BSG of 319/310. BSGs now slightly below goal range for inpatient targets. Will hold off on basal insulin this AM - will give with lunch. Decrease basal insulin by at least 15% * Insulin requirements will decrease as steroids are tapered. PLAN FOR INPATIENT GLYCEMIC CONTROL: * Hold outpatient oral diabetes medications * Basal insulin * Decrease Lantus 12 units SC x1 now with an additional 6 or 10 units tonight depending on BSG. Hold if methylprednisolone is discontinued. * Bolus insulin * NovoLog per scale ACHS or Q6hrs while NPO * Goal Range: Low 110 mg/dL - High 140 mg/dL * Correction Factor: 25 mg/dL/unit * Carb ratio: Tighten to 7 g CHO/unit with breakfast. Loosen to 9 g CHO/unit with all other checks PLAN FOR DISCHARGE: * A1c is in target range for patient based on age/co-morbidities * No changes needed to outpatient regimen
--- NOTE | 2019-11-30 10:30 | Cardiology Progress Note ---
Date of Service November 30, 2019 Assessment & Plan (1) Acute hypoxemic respiratory failure: Patient continues to improve from pulm standpoint Patient now significantly improved clinically Will defer further management to our pulmonary colleagues (2) Status asthmaticus: (3) Pneumonitis: (4) Acute hyperkalemia: Improved (5) Hypomagnesemia: Improved (6) Acute exacerbation of chronic obstructive pulmonary disease: (7) Atrial fibrillation with RVR: Spontaneously converted to normal sinus rhythm during admission. Received 5th dose of sotalol this morning. EKG this morning was poor tracing. Repeat requested to monitor QT/QTC Continue sotalol Continue to monitor on telemetry. Continue Eliquis. Case discussed with Dr. Marie. Will follow. Anticipate discharge in 1-2 days pending pulm status Supervising Physician Co-Signing Physician Notes Patient was seen and personally examined. Full assessment as accurately determined above Pulmonary status is stable patient tolerating sotalol and remaining in sinus rhythm initially. Would recommend at least an additional 24 hours telemetry Repeat EKG in a.m. Subjective Patient evaluated this morning. Sitting in chair. She reports feeling better each day. SOB and wheezing improving. No chest pain. No sense of palpitations or tachypalpitations. No dizziness. Tolerating Sotalol. Telemetry reviewed, maintaining NSR with PAC's. One episode of complex tachycardia overnight during presumed sleep. No symptoms. No recurrence. EKG completed this morning with significant artifact. Repeat EKG pending Review of Systems Review of Systems: All systems reviewed & are unremarkable except as noted in HPI & below Physical Exam Constitutional: WD/WN, vitals as above + thin; no acute distress Respiratory: no labored breathing Auscultation: + diminished lung sounds and + wheezes (faint scattered wheeze b/l) Cardiovascular: RRR, no murmur, no edema Vessels: no JVD Extremities: no edema Gastrointestinal (Abdomen): normal bowel sounds, soft, nontender, no hepatosplenomegaly Musculoskeletal: no cyanosis or clubbing, extremities motor strength 5/5 Neurologic: PERRL, EOMI, accommodation nl, no face palsy, no dysarthria Results & Data Vital Signs (Past 12 Hours) Vital Signs Temp Pulse Pulse Resp BP BP Pulse Ox 11/30/19 07:24 36.8 C 76 20 149/72 H 96 11/30/19 07:03 70 19 97 08/10/20 03:47 36.6 C 62 18 122/75 98 11/30/19 01:04 69 20 93 11/30/19 00:00 66 11/29/19 23:47 36.8 C 73 18 155/92 H 95
[2019-11-30 11:06] LABS: Base Excess ABG 6.3 mEq/L (-9-1.8); HCO3 ABG 33 mmol/L (19-24); Oxygen Saturation ABG 96.7 % (90-95); PCO2 ABG 57 mmHg (35-46); PO2 ABG 95 mmHg (80-95); pH ABG 7.37 (7.35-7.45)
[2019-11-30 11:07] LABS: Allen Test Pos (Pos)
--- NOTE | 2019-11-30 11:57 | Hospitalist Progress Note ---
Date of Service November 30, 2019 Assessment & Plan (1) Toxic effect of fumes: She was exposed to fumes of Lysol for about half an hour continuously Presented to ER with increasing shortness of breath and wheezing Presented with acute respiratory failure with hypoxia secondary to COPD exacerba tion and which is due to exposure to toxic fumes of Lysol Has been getting nebulized bronchodilators, intravenous steroid and oxygen Appreciate pulmonary input and recommendation CT scan of the chest showed:1. Mildly progressive left and to a lesser extent right pleural effusion. 2. Prominent pulmonary vasculature suggesting a developing component of congestive failure. Received s dose of intravenous Lasix of 40 mg yesterday Clinically a lot better We will give 20 of intravenous Lasix -11/29/2019 The patient will benefit from use of Trilogy at home as per pulmonary (2) Acute respiratory failure with hypoxia: As above (3) Pneumonitis: Doubt any infection (4) COPD with exacerbation: Has exacerbation without any infection Continue steroid (5) Atrial fibrillation with rapid ventricular response: Presenting hypoxemia may have contributed rapid atrial fibrillation Continue apixaban for stroke prophylaxis, [id number] 3 Continue diltiazem drip, metoprolol tartrate 25 mg every 6 hours Cardiology consult-appreciate input and recommendation Echocardiogram: Atrial fibrillation, normal LV chamber size and wall thickness, EF 55 to 60%, no segmental LV wall motion abnormalities, aortic valve sclerosis mild without significant stenosis and mild left atrial enlargement Patient was to undergo DARIA/cardioversion secondary to recurrent PAF 2 weeks ago; however, returned to NSR Has been on sotalol since yesterday Reverted to sinus rhythm this morning Doubt any episodes of VT on monitor Remains stable as per cardiology (6) Hypomagnesemia: Replace, to receive 2 g mag sulfate in ED add 1 g magnesium ordered for a total of 3 g Repeat @ 8pm and in a.m. Daughter discussed recurrent hypomagnesemia and if she would benefit from oral supplementation as outpatient She has not been taking Lasix, but she does take daily omeprazole Monitor magnesium on daily basis, consider oral supplementation as outpatient Magnesium level is corrected (7) Acute hyperkalemia: K 5.5, Na 133 not on amy/arb, or potassium supplements receiving calcium gluconate 1g and d5 in ED IVF 75cc/hr, low K diet Received Lasix last evening and will have 20 mg IV this morning Potassium noted to be low at 3.0 and will give supplement and repeat in the morning (8) T2DM (type 2 diabetes mellitus): last a1c 6.2 09/2019 Hold metformin Lantus/NovoLog per protocol Place glycemic pharmacy consult due to anticipate hyperglycemia in setting of steroid use (9) HTN (hypertension): Bp stable continue metoprolol and diltiazem (10) Anemia: H/H 8.6 and 29.8 Microcytic hypochromic indicies check iron panel-Low Iron Will start Feso4 Hemoglobin remains stable (11) DVT prophylaxis: apixaban Disposition: admit to tele Follow up: PCP Dr. Torre upon discharge The daughter is updated Admission and Anticipated Discharge Date Admission Date: November 27, 2019 Subjective 11/28/2019 The patient was seen and examined in telemetry unit She has a history of COPD and A. fib and was admitted with feelings of Lysol inhalation continuously for half an hour while cleaning the spill Short of breath this morning with diffuse wheezing but good managed to communicate with me Denies any pain Saturation has been more than 90 on 2 L of oxygen during examination 11/29/2019 The patient was seen and examined in telemetry unit She has been feeling a lot better today with less wheezing and less shortness of breath She required BiPAP at nighttime to maintain saturation this morning saturating well with nasal cannula Denies any fever and/or chills 11/30/2019 The patient was seen and examined in telemetry unit She has been feeling a lot better today and is out of bed on a chair Complains to have some shortness of breath at rest and worse with exertion Review of Systems Review of Systems: All systems reviewed and are unremarkable except as noted below Respiratory: + cough, + chest congestion, + dyspnea, + dyspnea on exertion and + wheezing; no hemoptysis Cardiovascular: + dyspnea at rest and + dyspnea on exertion; no chest pain and no palpitations Physical Exam Physical Exam: Sitting on a chair with minimal shortness of breath at rest Constitutional: well developed, well nourished, + acute distress (Minimal shortness of breath at rest), + ill appearing and + thin Eyes: PERRL, conjunctivae normal, anicteric sclerae ENMT: external ear and nose normal, oropharynx normal Neck: trachea midline, no thyromegaly Respiratory: + respiratory distress, + labored breathing and + uses accessory muscles Auscultation: + diminished lung sounds and + wheezes Cardiovascular: Rate/Rhythm: regular rate, regular rhythm and + irregularly irregular Extremities: no edema Gastrointestinal (Abdomen): Inspection/Auscultation: abdomen normal to inspection and normal bowel sounds Percussion/Palpation: abdomen soft; abdomen nontender Musculoskeletal: No acute arthritis involving any joints Neurologic: moves all extremities; no focal motor deficits Alert, awake and oriented x3 Results & Data Results & Data ([facility]) Vital Signs (Past 12 Hours) Vital Signs Temp Pulse Pulse Resp BP BP Pulse Ox 11/30/19 11:09 36.8 C 73 18 133/78 97 11/30/19 07:24 36.8 C 76 20 149/72 H 96 11/30/19 07:03 70 19 97 11/30/19 03:47 36.6 C 62 18 122/75 98 11/30/19 01:04 69 20 93 11/30/19 00:00 66 Laboratory Results Short CBC 11/30/19 Range/Units 06:11 WBC 14.39 H (4.8-10.8) K/uL Hgb 8.6 L (12.0-16.0) g/dL Hct 30.6 L (37-47) % Plt Count 394 (130-400) K/uL BMP 11/30/19 06:11 Sodium 137 Potassium 3.9 D Chloride 99 Carbon Dioxide 32 BUN 37 H Creatinine 0.87 Glucose 87 Calcium 8.7 Medications Administered Current Inpatient Medications Acetaminophen (Tylenol) 650 mg PO Q4H PRN PRN Reason: Pain or Fever Stop: 12/27/19 16:37 Al Hydrox/Mg Hydrox/Simethicone (Maalox) 15 ml PO Q4H PRN PRN Reason: Dyspepsia Stop: 12/27/19 16:37 Albuterol (Duoneb) 3 ml NEB Q4H PRN PRN Reason: Wheezing Stop: 12/28/19 11:44 Last Admin: 11/30/19 06:58 Dose: 3 ml Documented by: Apixaban (Eliquis) 2.5 mg PO BID [facility] Stop: 12/27/19 20:59 Last Admin: 11/30/19 08:11 Dose: 2.5 mg Documented by: Budesonide (Pulmicort Respules) 0.5 mg INH BIDR [facility] Stop: 12/27/19 20:59 Last Admin: 11/30/19 06:58 Dose: 0.5 mg Documented by: Dextrose (Dextrose 50%) 25 - 50 ml IV UD PRN; Protocol PRN Reason: Hypoglycemia Protocol Stop: 12/27/19 18:13 Docusate Sodium (Colace) 100 mg PO BID [facility] Stop: 12/27/19 20:59 Last Admin: 11/30/19 08:12 Dose: 100 mg Documented by: Formoterol Fumarate (Perforomist) 20 mcg INH BIDR [facility] Stop: 12/29/19 18:59 Last Admin: 11/30/19 06:58 Dose: 20 mcg Documented by: Furosemide (Lasix) 20 mg PO DAILY PRN PRN Reason: Swelling Stop: 12/27/19 18:59 Last Admin: 11/29/19 07:40 Dose: 20 mg Documented by: Glucagon (Glucagen) 1 mg SQ UD PRN; Protocol PRN Reason: Hypoglycemia Protocol Stop: 12/27/19 18:13 Glucose (Dex4 Glucose) 4 - 8 tabs PO UD PRN; Protocol PRN Reason: Hypoglycemia Protocol Stop: 12/27/19 18:13 Glucose (Glucose 40%) 15 - 30 gm PO UD PRN; Protocol PRN Reason: Hypoglycemia Protocol Stop: 12/27/19 18:13 Diltiazem HCl 125 mg/ Dextrose 125 mls @ 5 mls/hr IV .Q24H [facility]; Protocol Stop: 12/27/19 15:14 Last Admin: 11/29/19 11:38 Dose: Not Given Documented by: Methylprednisolone 40 mg/ (Syringe) 0.64 mls @ 1.5 mls/min IV Q12H [facility] Stop: 12/29/19 20:59 Last Admin: 11/30/19 08:11 Dose: 1.5 mls/min Documented by: Insulin Aspart (Novolog Flexpen) 0 units SC TID@1130,1630,2100 [facility]; Protocol Stop: 12/30/19 11:29 Insulin Aspart (Novolog Flexpen) 0 units SC DAILY@0730 [facility]; Protocol Stop: 12/30/19 07:29 Last Admin: 11/30/19 08:11 Dose: 4 units Documented by: Insulin Glargine (Lantus Solostar Pen) 0 units SC BID [facility]; Protocol Stop: 12/27/19 20:59 Last Admin: 11/29/19 21:12 Dose: 6 units Documented by: Levalbuterol HCl (Xopenex 1.25mg/3ml Neb) 1.25 mg INH Q4R PRN PRN Reason: shortness of breath Stop: 12/27/19 18:13 Magnesium Hydroxide (Milk Of Magnesia) 30 ml PO Q12H PRN PRN Reason: Constipation Stop: 12/27/19 16:37 Metoprolol Tartrate (Lopressor) 25 mg PO Q6H [facility] Stop: 12/27/19 16:59 Last Admin: 11/28/19 10:51 Dose: 25 mg Documented by: Miscellaneous (Carbohydrates For Hypoglycemia) 15 - 30 gm PO UD PRN PRN Reason: Hypoglycemia Protocol Stop: 12/27/19 18:13 Miscellaneous Information (Consult Glycemic Management Pharmacy) 1 ea N/A UD PRN; Protocol PRN Reason: Consult Stop: 12/27/19 18:24 Montelukast Sodium (Singulair) 10 mg PO QAM [facility] Stop: 12/28/19 08:59 Last Admin: 11/30/19 08:11 Dose: 10 mg Documented by: Nitroglycerin (Nitrostat) 0.4 mg SL UD PRN PRN Reason: Chest Pain Stop: 12/27/19 16:37 Ondansetron HCl (Zofran) 4 mg IV Q6H PRN PRN Reason: Nausea Stop: 12/27/19 16:37 Pantoprazole Sodium (Protonix) 40 mg PO HS [facility] Stop: 12/27/19 20:59 Last Admin: 11/29/19 20:34 Dose: 40 mg Documented by: Polyethylene Glycol (Miralax Powder Packet) 17 gm PO DAILY PRN PRN Reason: Constipation Stop: 12/27/19 16:37 Polyethylene Glycol (Miralax Powder Packet) 17 gm PO DAILY [facility] Stop: 12/28/19 08:59 Last Admin: 11/30/19 08:12 Dose: 17 gm Documented by: Sennosides (Senokot) 8.6 mg PO QDL [facility] Stop: 12/28/19 11:29 Last Admin: 11/29/19 07:40 Dose: 8.6 mg Documented by: Sertraline HCl (Zoloft) 50 mg PO QAM [facility] Stop: 12/28/19 08:59 Last Admin: 11/30/19 08:12 Dose: 50 mg Documented by: Sotalol HCl (Betapace) 80 mg PO BID [facility] Stop: 12/28/19 11:29 Last Admin: 11/30/19 08:11 Dose: 80 mg Documented by: Tramadol HCl (Ultram) 50 mg PO Q6 PRN PRN Reason: Pain Stop: 12/27/19 18:13 Vitamin D (Vitamin D3) 5,000 units PO QAM [facility] Stop: 12/28/19 08:59 Last Admin: 11/30/19 08:12 Dose: 5,000 units Documented by:
[2019-11-30] MEDS: SENNA 8.6 MG TAB PO SCH (12:23)
[2019-11-30] MEDS: dilTIAZem HCL 125 MG in DEXTROSE 5% 100 ML IV SCH (16:07)
[2019-11-30] MEDS: FERROUS SULFATE 325 MG TAB PO SCH (17:24)
[2019-11-30] MEDS: PANTOprazole 40 MG TAB PO SCH (21:23)
[2019-11-30] MEDS: INSULIN GLARGINE SOLOSTAR 100 UNITS/ML 3 ML PEN SC SCH (21:32)
[2019-11-30] MEDS ORDERED: dilTIAZem HCl 5 MG/ML 5 ML VIAL IV STA ×2 (21:50→23:30)
[2019-11-30] MEDS ORDERED: dilTIAZem HCL 125 MG in DEXTROSE 5% 100 ML IV SCH (23:30)
[2019-11-30] MEDS ORDERED: STAT IV Infusion **Titration per Protocol STA (23:30)
[2019-12-01] MEDS: TRAMADOL HCL 50 MG TABLET PO PRN ×3 (00:22→23:00)
[2019-12-01] MEDS: dilTIAZem HCL 125 MG in DEXTROSE 5% 100 ML IV SCH ×3 (00:23→22:57)
[2019-12-01] MEDS: ALBUT/IPRATROP 3MG/0.5MG NEB 3 ML VIAL NEB PRN ×2 (03:42→15:30)
[2019-12-01 06:30] LABS: BUN Creatinine Ratio 40.5 (10-20); Calcium 8.6 mg/dl (8.5-10.1); Creatinine Clr Calc Pharmacy 55.1 ml/min; Est GFR (African American) 87.4; Est GFR (Non-African American) 75.4; Potassium 4.2 mmol/L (3.5-5.1)
[2019-12-01] MEDS: FORMOTEROL 20 MCG/2 ML VIAL INH SCH ×2 (06:47→18:59)
[2019-12-01] MEDS: BUDESONIDE 0.5 MG/2 ML VIAL (PULMICORT) INH SCH ×2 (06:48→18:59)
--- NOTE | 2019-12-01 08:01 | XRay Report ---
XR chest 1V portable HISTORY: Hypoxia. Follow-up pleural effusions. COMPARISON: Chest 11/27/2019. FINDINGS: Small bilateral pleural effusions are not significantly changed. There is mild central pulm onary vascular congestion without overt edema. No pneumothorax. Right basilar calcification and myoca rdial megaly persists. Bibasilar densities are nonspecific but favor atelectasis. IMPRESSION: No significant change in the small bilateral pleural effusions and mild congestive change. ACT 112: Negative or not required by law. Electronically signed by: Wenceslao Richardson M.D. 12/01/2019 8:00 AM
[2019-12-01] MEDS: MONTELUKAST SODIUM 10 MG TABLET PO SCH (08:05)
[2019-12-01] MEDS: FERROUS SULFATE 325 MG TAB PO SCH ×2 (08:05→16:59)
[2019-12-01] MEDS: SERTRALINE HCL 50 MG TABLET PO SCH (08:06)
[2019-12-01] MEDS: INSULIN GLARGINE SOLOSTAR 100 UNITS/ML 3 ML PEN SC SCH (08:06)
[2019-12-01] MEDS: APIXABAN 2.5 MG TAB PO SCH ×2 (08:06→20:56)
[2019-12-01] MEDS: SOTALOL HCL 80 MG TAB PO SCH ×2 (08:06→20:56)
[2019-12-01] MEDS: CHOLECALCIFEROL 1,000 UNITS 25 MCG TAB PO SCH (08:06)
[2019-12-01] MEDS: INSULIN ASPART 100 UNITS/ML 3 ML PEN SC SCH ×4 (08:08→20:56)
[2019-12-01] MEDS: POLYETHYLENE (MIRALAX) 17 GM PACK PO SCH (08:12)
[2019-12-01] MEDS: DOCUSATE SODIUM 100 MG CAP PO SCH ×2 (08:12→20:56)
[2019-12-01] MEDS: methylPREDNISolone 40 MG in SYRINGE 0 ML IV SCH (10:00)
--- NOTE | 2019-12-01 10:13 | Cardiology Progress Note ---
Date of Service December 01, 2019 Assessment & Plan (1) Acute hypoxemic respiratory failure: Patient continues to improve from pulm standpoint Patient now significantly improved clinically Will defer further management to our pulmonary colleagues (2) Status asthmaticus: (3) Pneumonitis: (4) Acute hyperkalemia: Improved (5) Hypomagnesemia: Improved (6) Acute exacerbation of chronic obstructive pulmonary disease: (7) Atrial fibrillation with RVR: Recurrent afib since last night around 21:00. Continue sotalol 80 mg BID Continue to monitor on telemetry. Continue Eliquis. Hopeful patient will return to NSR after AM dose of sotalol this morning. If she remains in afib, consider CV. Case discussed with Dr. Paige. Will follow. Supervising Physician Co-Signing Physician Notes Supervising Physician Attestation: I have personally performed a history and physical examination on the patient. I agree with the physician environmental emergencies assistant's findings and plan as documented with the following additions. Subjective: Patient notes shortness of breath. Exam: Temp Pulse Resp BP Pulse Ox 36.6 C 102 H 18 119/60 96 12/01/19 07:30 12/01/19 07:30 12/01/19 07:30 12/01/19 07:30 12/01/19 07:30 Pulm: Course breath sounds CV: irregular, no murmers Data: [] Assessment and Plan: Acute asthma exacerbation Paryoxsmal AF -Reverted back to AF 11/30/19 at 2100. Now on a diltazem gtt with ventricular rates of 90-110 bpm. Has received 6 th loading dose of sotalol. Automated QTc this am on EKG just under 500 ms, however difficult to measure given AF and tachycardia. Continue IV diltiazem and oral sotalol. Continue Eliquis DVT prophylaxis: On Eliquis Bill Paige, DO Subjective Patient out of bed in this morning feeling improved. Denies acute complaints. Requesting to go home. She reports interval improvement in her shortness of breath and cough. No chest pain. She notes intermittent palpitations. Patient attempted to use Trilogy ventilator last night without success. She reports she "panicked" when she was unable to remove the head wear and mask. Unfortunately she also Developed recurrent atrial fibrillation with mildly elevated ventricular rates last night. She remains in atrial fibrillation with heart rates ranging 90-110 this morning. Review of Systems Review of Systems: All systems reviewed & are unremarkable except as noted in HPI & below Physical Exam Constitutional: WD/WN, vitals as above + thin; no acute distress Respiratory: no labored breathing Auscultation: + diminished lung sounds and + wheezes (faint scattered wheeze b/l) Cardiovascular: Rate/Rhythm: + irregularly irregular Vessels: no JVD Extremities: no edema Gastrointestinal (Abdomen): normal bowel sounds, soft, nontender, no hepatosplenomegaly Musculoskeletal: no cyanosis or clubbing, extremities motor strength 5/5 Neurologic: PERRL, EOMI, accommodation nl, no face palsy, no dysarthria Results & Data Vital Signs (Past 12 Hours) Vital Signs Temp Pulse Pulse Resp BP BP Pulse Ox 12/01/19 07:30 36.6 C 102 H 18 119/60 96 12/01/19 06:50 110 H 16 99 12/01/19 03:42 110 H 20 100 12/01/19 03:38 36.8 C 116 H 20 119/95 100 12/01/19 00:50 118 H 20 119/94 11/30/19 23:10 36.5 C 120 H 22 122/90 96 11/30/19 22:30 118 H 11/30/19 22:05 136 H 18 99 Laboratory Results 12/01/19 11/30/19 11/30/19 Range/Units 05:38 20:21 11:08 ABG pH (7.35-7.45) ABG pCO2 (35-46) mmHg ABG pO2 (80-95) mmHg ABG HCO3 (19-24) mmol/L ABG O2 Saturation (90-95) % ABG Base Excess (-9-1.8) mEq/L Brien Test (Pos) Barometric Pressure mm/Hg Oxygen Given Sodium 137 (136-145) mmol/L Potassium 4.2 (3.5-5.1) mmol/L Chloride 100 (98-107) mmol/L Carbon Dioxide 33 H (21-32) mmol/L Anion Gap 4.0 (3-11) BUN 30 H (7-18) mg/dl Creatinine 0.74 (0.6-1.2) mg/dl Est Cr Clr Drug Dosing 55.1 ml/min Est GFR ( Amer) 87.4 Est GFR (Non-Af Amer) 75.4 BUN/Creatinine Ratio 40.5 H (10-20) Glucose 154 H (70-99) mg/dl POC Glucose 141 H 191 H (70-99) mg/dl Calcium 8.6 (8.5-10.1) mg/dl Magnesium 2.0 (1.8-2.4) mg/dl 11/30/19 Range/Units 10:54 ABG pH 7.37 (7.35-7.45) ABG pCO2 57 H (35-46) mmHg ABG pO2 95 (80-95) mmHg ABG HCO3 33 H (19-24) mmol/L ABG O2 Saturation 96.7 H (90-95) % ABG Base Excess 6.3 H (-9-1.8) mEq/L Brien Test Pos (Pos) Barometric Pressure 734.0 mm/Hg Oxygen Given 3L Sodium (136-145) mmol/L Potassium (3.5-5.1) mmol/L Chloride (98-107) mmol/L Carbon Dioxide (21-32) mmol/L Anion Gap (3-11) BUN (7-18) mg/dl Creatinine (0.6-1.2) mg/dl Est Cr Clr Drug Dosing ml/min Est GFR ( Amer) Est GFR (Non-Af Amer) BUN/Creatinine Ratio (10-20) Glucose (70-99) mg/dl POC Glucose (70-99) mg/dl Calcium (8.5-10.1) mg/dl Magnesium (1.8-2.4) mg/dl Diagnostic Findings Telemetry reviewed: Recurrent atrial fibrillation with borderline rate control Ranging 90 to 110 bpm. Episode of A. fib began at 21:00 on 11/30/2019. EKG this morning: Afib with RVR QT/QTC < 500 but may not be accurate due to flattening of her T waves Medications Administered Current Inpatient Medications Acetaminophen (Tylenol) 650 mg PO Q4H PRN PRN Reason: Pain or Fever Stop: 12/27/19 16:37 Al Hydrox/Mg Hydrox/Simethicone (Maalox) 15 ml PO Q4H PRN PRN Reason: Dyspepsia Stop: 12/27/19 16:37 Albuterol (Duoneb) 3 ml NEB Q4H PRN PRN Reason: Wheezing Stop: 12/28/19 11:44 Last Admin: 12/01/19 03:42 Dose: 3 ml Documented by: Apixaban (Eliquis) 2.5 mg PO BID [facility] Stop: 12/27/19 20:59 Last Admin: 12/01/19 08:06 Dose: 2.5 mg Documented by: Budesonide (Pulmicort Respules) 0.5 mg INH BIDR [facility] Stop: 12/27/19 20:59 Last Admin: 12/01/19 06:48 Dose: 0.5 mg Documented by: Dextrose (Dextrose 50%) 25 - 50 ml IV UD PRN; Protocol PRN Reason: Hypoglycemia Protocol Stop: 12/27/19 18:13 Docusate Sodium (Colace) 100 mg PO BID [facility] Stop: 12/27/19 20:59 Last Admin: 12/01/19 08:12 Dose: 100 mg Documented by: Ferrous Sulfate (Feosol) 325 mg PO BIDM [facility] Stop: 12/30/19 16:59 Last Admin: 12/01/19 08:05 Dose: 325 mg Documented by: Formoterol Fumarate (Perforomist) 20 mcg INH BIDR [facility] Stop: 12/29/19 18:59 Last Admin: 12/01/19 06:47 Dose: 20 mcg Documented by: Furosemide (Lasix) 20 mg PO DAILY PRN PRN Reason: Swelling Stop: 12/27/19 18:59 Last Admin: 11/29/19 07:40 Dose: 20 mg Documented by: Glucagon (Glucagen) 1 mg SQ UD PRN; Protocol PRN Reason: Hypoglycemia Protocol Stop: 12/27/19 18:13 Glucose (Dex4 Glucose) 4 - 8 tabs PO UD PRN; Protocol PRN Reason: Hypoglycemia Protocol Stop: 12/27/19 18:13 Glucose (Glucose 40%) 15 - 30 gm PO UD PRN; Protocol PRN Reason: Hypoglycemia Protocol Stop: 12/27/19 18:13 Diltiazem HCl 125 mg/ Dextrose 125 mls @ 10 mls/hr IV .[id number] [facility]; Protocol Stop: 12/27/19 15:14 Last Titration: 12/01/19 07:23 Dose: 10 mg/hr, 10 mls/hr Documented by: Methylprednisolone 40 mg/ (Syringe) 0.64 mls @ 1.5 mls/min IV Q12H [facility] Stop: 12/29/19 20:59 Last Admin: 12/01/19 10:00 Dose: 1.5 mls/min Documented by: Insulin Aspart (Novolog Flexpen) 0 units SC TID@1130,1630,2100 [facility]; Protocol Stop: 12/30/19 11:29 Last Admin: 11/30/19 21:32 Dose: 2 units Documented by: Insulin Aspart (Novolog Flexpen) 0 units SC DAILY@0730 [facility]; Protocol Stop: 12/30/19 07:29 Last Admin: 12/01/19 08:08 Dose: 7 units Documented by: Insulin Glargine (Lantus Solostar Pen) 0 units SC BID [facility]; Protocol Stop: 12/27/19 20:59 Last Admin: 12/01/19 08:06 Dose: 12 units Documented by: Levalbuterol HCl (Xopenex 1.25mg/3ml Neb) 1.25 mg INH Q4R PRN PRN Reason: shortness of breath Stop: 12/27/19 18:13 Magnesium Hydroxide (Milk Of Magnesia) 30 ml PO Q12H PRN PRN Reason: Constipation Stop: 12/27/19 16:37 Metoprolol Tartrate (Lopressor) 25 mg PO Q6H [facility] Stop: 12/27/19 16:59 Last Admin: 11/28/19 10:51 Dose: 25 mg Documented by: Miscellaneous (Carbohydrates For Hypoglycemia) 15 - 30 gm PO UD PRN PRN Reason: Hypoglycemia Protocol Stop: 12/27/19 18:13 Miscellaneous Information (Consult Glycemic Management Pharmacy) 1 ea N/A UD PRN; Protocol PRN Reason: Consult Stop: 12/27/19 18:24 Montelukast Sodium ([facility]) [facility] Stop: 12/28/19 08:59 Last Admin: 12/01/19 08:05 Dose: 10 mg Documented by: Nitroglycerin (Nitrostat) 0.4 mg SL UD PRN PRN Reason: Chest Pain Stop: 12/27/19 16:37 Ondansetron HCl (Zofran) 4 mg IV Q6H PRN PRN Reason: Nausea Stop: 12/27/19 16:37 Pantoprazole Sodium (Protonix) 40 mg PO HS [facility] Stop: 12/27/19 20:59 Last Admin: 11/30/19 21:23 Dose: 40 mg Documented by: Polyethylene Glycol (Miralax Powder Packet) 17 gm PO DAILY PRN PRN Reason: Constipation Stop: 12/27/19 16:37 Polyethylene Glycol (Miralax Powder Packet) 17 gm PO DAILY [facility] Stop: 12/28/19 08:59 Last Admin: 12/01/19 08:12 Dose: 17 gm Documented by: Sennosides (Senokot) 8.6 mg PO QDL [facility] Stop: 12/28/19 11:29 Last Admin: 11/30/19 12:23 Dose: Not Given Documented by: Sertraline HCl (Zoloft) 50 mg PO QAM [facility] Stop: 12/28/19 08:59 Last Admin: 12/01/19 08:06 Dose: 50 mg Documented by: Sotalol HCl (Betapace) 80 mg PO BID [facility] Stop: 12/28/19 11:29 Last Admin: 12/01/19 08:06 Dose: 80 mg Documented by: Tramadol HCl (Ultram) 50 mg PO Q6 PRN PRN Reason: Pain Stop: 12/27/19 18:13 Last Admin: 12/01/19 00:22 Dose: 50 mg Documented by: Vitamin D (Vitamin D3) 5,000 units PO QAM [facility] Stop: 12/28/19 08:59 Last Admin: 12/01/19 08:06 Dose: 5,000 units Documented by:
--- NOTE | 2019-12-01 10:18 | Pharmacy Report ---
Pharmacy Glycemic Short Note 2 - Date of Service December 01, 2019 - Glycemic Short BSG Results (Last 24 hours): 11/30/19 11/30/19 12/01/19 11:08 20:21 05:38 Glucose 154 H POC Glucose 191 H 141 H OUTPATIENT ANTIDIABETIC REGIMEN: * Metformin 1000 mg PO BIDM * A1c = 6.2% (10/25/2019) Risk Factors for Insulin Resistance: * Steroids: Methylprednisolone 40 mg IV Q12H tapered to prednisone 40 mg po daily starting 8 AM * IVF: diltiazem drip mixed in D5W * Diet: T2DM ASSESSMENT: 11/30 * Steroid tapering, with first dose affected/missed starting this evening * BSG's ranged 89-141 mg/dL yesterday, with the exception of BSG of 191 mg/dL at lunch. CHO ratio at breakfast has already been tightened therefore no change needed for today. Will loosen tomorrow 2nd steroid taper, but keep breakfast parameters slightly tighter than all others * AM fasting BSG today slightly above goal range (154 mg/dL) after slight Lantus reduction yesterday. However, as steroids are tapering will continue same dose this AM but hold dose this evening. May consider transition to NPH tomorrow with initiation of prednisone po. 11/29 * Trend noted x3 days with lunch BSG significantly elevated >190 mg/dL (possibly 2nd effect of methylprednisolone admin in AM) with all other BSG's either in or below goal range * Will tighten Novolog CHO ratio with breakfast but will loosen CHO ratio for all other checks * AM fasting BSG below goal range, at 89 mg/dL. Patient received 24 units of basal insulin yesterday. Will reduce today and ongoing 11/28 * 84 yo F admitted secondary to COPD Exacerbation. Pharmacy is consulted for glycemic management. She does use chronic prednisone at home. * Patient is a well-controlled type 2 diabetic on metformin monotherapy as demonstrated by most recent A1c. * Currently receiving Solumedrol 40mg IV Q8hrs; leading to severe steroid induced hyperglycemia * Pt received 69 units of insulin over the past 24hrs * 42 units of basal (Lantus) * 27 units of bolus (NovoLog) * BSGs [id number] * Increased insulin regimen significantly yesterday prior to lunch secondary to BSG of 319/310. BSGs now slightly below goal range for inpatient targets. Will hold off on basal insulin this AM - will give with lunch. Decrease basal insulin by at least 15% * Insulin requirements will decrease as steroids are tapered. PLAN FOR INPATIENT GLYCEMIC CONTROL: Hold outpatient oral diabetes medications Basal insulin * Lantus 12 units SC x1 this AM, then hold ongoing for now 2nd steroid taper. Possible change to NPH qAM starting tomorrow. Bolus insulin * NovoLog per scale ACHS or Q6hrs while NPO * Goal Range: Low 110 mg/dL - High 140 mg/dL * 11/30 regimen * Correction Factor: 25 mg/dL/unit * Carb ratio: 7 g CHO/unit with breakfast. 9 g CHO/unit with all other checks * 12/01 regimen * Correction Factor: 25 mg/dL/unit with breakfast. 30 mg/dL/unit with all other checks * Carb ratio: 9 g CHO/unit with breakfast. 10 g CHO/unit with all other checks PLAN FOR DISCHARGE: * A1c is in target range for patient based on age/co-morbidities * No changes needed to outpatient regimen
--- NOTE | 2019-12-01 11:12 | Pulmonology Progress Note ---
Date of Service December 01, 2019 Assessment & Plan (1) Status asthmaticus: --Acute hypoxic respiratory failure Likely secondary to asthma exacerbation Continue with steroids, inhaled bronchodilators O2 supplementation to keep O2 saturation between 88 to 92% BiPAP nightly and PRN shortness of breath --Chronic right-sided volume loss Patient CT chest did does show right-sided chronic volume loss along with pleural calcification on the right base. Etiology of this loss is unclear. PFT as an outpatient would be beneficial to see if she will qualify for trilogy. 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 Patient is hypercapnic even after using BiPAP. Plan: Chest x-ray from today shows improvement in pulmonary edema. There is decrease in bilateral pleural effusion that the patient had. Small pleural effusions do es persist. Continue with diuresis as tolerated. Transition to p.o. prednisone. Patient is on budesonide nebulizer at home would add Perforomist also twice daily along with that. Trilogy will be beneficial to the patient only if she is willing to use it. Importance of using it explained to the patient. Patient seems to be stable from pulmonary perspective. Will sign off please recall if needed. Please note the above document was generated using voice recognition software. It may contain grammatical, syntax or spelling errors. (2) Acute hypoxemic respiratory failure: (3) Atrial fibrillation: (4) Shortness of breath: Admission and Anticipated Discharge Date Admission Date: November 27, 2019 Subjective Patient seen and examined at bedside. No acute distress. Patient states his breathing is much better. She is feeling easier to breathe. Denies any chest pain, no dizziness, no palpitation, no headache. Patient again tried BiPAP overnight but she said that it was difficult for her to tolerate it. Good appetite. Review of Systems Review of Systems: All systems reviewed & are unremarkable except as noted in HPI & below Physical Exam Physical Exam: Constitutional: No acute distress HEENT: EOMI, PERRLA Respiratory system: Decreased air entry bilaterally, no rhonchi, no crackles, mild expiratory wheeze appreciated bilaterally CVS: S1-S2 positive, no murmurs or gallops, distant heart sounds Abdomen: Soft, nontender, nondistended, positive bowel sounds x4 Extremities: +2 pulses bilaterally radialis/ dorsalis pedis, no cyanosis, no edema Neuro: Awake alert oriented x3 Psych: Normal mood and affect G/U: Positive Contreras Skin: no rashes, warm and dry Lymphatic: no cervical or axillary lymphadenopathy Results & Data Results & Data ([facility]) Vital Signs (Past 12 Hours) Vital Signs Temp Pulse Resp BP BP Pulse Ox 12/01/19 07:30 36.6 C 102 H 18 119/60 96 12/01/19 06:50 110 H 16 99 12/01/19 03:42 110 H 20 100 12/01/19 03:38 36.8 C 116 H 20 119/95 100 12/01/19 00:50 118 H 20 119/94 11/30/19 23:10 36.5 C 120 H 22 122/90 96 11/30/19 06:11 12/01/19 05:38 PG Care Time/CCT Total # of Minutes Spent Total Time Spent with Patient: Total time spent is greater than 50% in coordination of care (as documented) at patient's floor/unit and/or counseling patient: Coding Level of Care Code 06101 Subseq Hosp Care Lvl 3 Diagnoses Status asthmaticus J45.902 Acute hypoxemic respiratory failure J96.01 Atrial fibrillation I48.91 Shortness of breath R06.02
[2019-12-01] MEDS ORDERED: SOTALOL HCL 80 MG TAB PO STA (11:14)
[2019-12-01] MEDS: SENNA 8.6 MG TAB PO SCH (11:53)
--- NOTE | 2019-12-01 13:25 | Hospitalist Progress Note ---
Date of Service December 01, 2019 Assessment & Plan (1) Toxic effect of fumes: She was exposed to fumes of Lysol for about half an hour continuously Presented to ER with increasing shortness of breath and wheezing Presented with acute respiratory failure with hypoxia secondary to COPD exacerba tion and which is due to exposure to toxic fumes of Lysol Has been getting nebulized bronchodilators, intravenous steroid and oxygen Appreciate pulmonary input and recommendation CT scan of the chest showed:1. Mildly progressive left and to a lesser extent right pleural effusion. 2. Prominent pulmonary vasculature suggesting a developing component of congestive failure. Received s dose of intravenous Lasix of 40 mg yesterday Clinically a lot better We will give 20 of intravenous Lasix -11/29/2019 The patient will benefit from use of Trilogy at home as per pulmonary She could not tolerate BiPAP last night and does not want to use Triology as an outpatient Her breathing seems to be stable as of this morning and the saturations maintained with continued use of nasal cannula oxygen (2) Acute respiratory failure with hypoxia: As above (3) Pneumonitis: Doubt any infection (4) COPD with exacerbation: Has exacerbation without any infection Continue steroid and nebulized bronchodilators Management as per pulmonary (5) Atrial fibrillation with rapid ventricular response: Presenting hypoxemia may have contributed rapid atrial fibrillation Continue apixaban for stroke prophylaxis, [id number] 3 Continue diltiazem drip, metoprolol tartrate 25 mg every 6 hours Cardiology consult-appreciate input and recommendation Echocardiogram: Atrial fibrillation, normal LV chamber size and wall thickness, EF 55 to 60%, no segmental LV wall motion abnormalities, aortic valve sclerosis mild without significant stenosis and mild left atrial enlargement Patient was to undergo DARIA/cardioversion secondary to recurrent PAF 2 weeks ago; however, returned to NSR Has been on sotalol since yesterday Reverted to sinus rhythm this morning on 11/30/2019 Doubt any episodes of VT on monitor Went back to atrial fibrillation with RVR since last night and IV Cardizem drip has been started (6) Hypomagnesemia: Replace, to receive 2 g mag sulfate in ED add 1 g magnesium ordered for a total of 3 g Repeat @ 8pm and in a.m. Daughter discussed recurrent hypomagnesemia and if she would benefit from oral supplementation as outpatient She has not been taking Lasix, but she does take daily omeprazole Monitor magnesium on daily basis, consider oral supplementation as outpatient Magnesium level is corrected (7) Acute hyperkalemia: K 5.5, Na 133 not on amy/arb, or potassium supplements receiving calcium gluconate 1g and d5 in ED IVF 75cc/hr, low K diet Received Lasix last evening and will have 20 mg IV this morning Potassium noted to be low at 3.0 and will give supplement and repeat in the morning Potassium level is corrected (8) T2DM (type 2 diabetes mellitus): last a1c 6.2 09/2019 Hold metformin Lantus/NovoLog per protocol Place glycemic pharmacy consult due to anticipate hyperglycemia in setting of steroid use (9) HTN (hypertension): Bp stable continue metoprolol and diltiazem (10) Anemia: H/H 8.6 and 29.8 Microcytic hypochromic indicies check iron panel-Low Iron Will start Feso4 Hemoglobin remains stable at 8.6 as of 12/01/2019 (11) DVT prophylaxis: apixaban Disposition: admit to tele Follow up: PCP Dr. Torre upon discharge The daughter is updated Admission and Anticipated Discharge Date Admission Date: November 27, 2019 Subjective 11/28/2019 The patient was seen and examined in telemetry unit She has a history of COPD and A. fib and was admitted with feelings of Lysol inhalation continuously for half an hour while cleaning the spill Short of breath this morning with diffuse wheezing but good managed to communicate with me Denies any pain Saturation has been more than 90 on 2 L of oxygen during examination 11/29/2019 The patient was seen and examined in telemetry unit She has been feeling a lot better today with less wheezing and less shortness of breath She required BiPAP at nighttime to maintain saturation this morning saturating well with nasal cannula Denies any fever and/or chills 11/30/2019 The patient was seen and examined in telemetry unit She has been feeling a lot better today and is out of bed on a chair Complains to have some shortness of breath at rest and worse with exertion 12/01/2019 The patient was seen and examined in telemetry unit She could not tolerate BiPAP last night and went into A. fib with RVR She has been feeling much better this morning and denies any palpitation Her shortness of breath is stable Review of Systems Review of Systems: All systems reviewed and are unremarkable except as noted below Respiratory: + dyspnea, + dyspnea on exertion and + wheezing; no cough, no chest congestion and no hemoptysis Cardiovascular: + dyspnea at rest and + dyspnea on exertion; no chest pain and no palpitations Physical Exam Physical Exam: Sitting on a chair with minimal shortness of breath at rest Constitutional: well developed, well nourished, + acute distress (Minimal shortness of breath at rest), + ill appearing and + thin Eyes: PERRL, conjunctivae normal, anicteric sclerae ENMT: external ear and nose normal, oropharynx normal Neck: trachea midline, no thyromegaly Respiratory: + respiratory distress (Minimal distress at rest), + labored breathing and + uses accessory muscles Auscultation: + diminished lung sounds (Very poor air entry); no wheezes Cardiovascular: Rate/Rhythm: + irregularly irregular Extremities: no edema Gastrointestinal (Abdomen): Inspection/Auscultation: abdomen normal to in spection and normal bowel sounds Percussion/Palpation: abdomen soft; abdomen nontender Musculoskeletal: No acute arthritis involving any joints Skin: Has generalized bruising Neurologic: moves all extremities; no focal motor deficits Alert, awake and oriented x3 Results & Data Results & Data ([facility]) Vital Signs (Past 12 Hours) Vital Signs Temp Pulse Pulse Resp BP BP Pulse Ox 12/01/19 12:33 36.4 C L 113 H 18 125/72 93 12/01/19 11:39 12/01/19 08:00 90 12/01/19 07:30 36.6 C 102 H 18 119/60 96 12/01/19 06:50 110 H 16 99 12/01/19 03:42 110 H 20 100 12/01/19 03:38 36.8 C 116 H 20 119/95 100 Pulse Ox 12/01/19 12:33 12/01/19 11:39 96 12/01/19 08:00 12/01/19 07:30 12/01/19 06:50 12/01/19 03:42 12/01/19 03:38 Laboratory Results [facility] 12/01/19 05:38 Sodium 137 Potassium 4.2 Chloride 100 Carbon Dioxide 33 H BUN 30 H Creatinine 0.74 Glucose 154 H Calcium 8.6 Medications Administered Current Inpatient Medications Acetaminophen (Tylenol) 650 mg PO Q4H PRN PRN Reason: Pain or Fever Stop: 12/27/19 16:37 Al Hydrox/Mg Hydrox/Simethicone (Maalox) 15 ml PO Q4H PRN PRN Reason: Dyspepsia Stop: 12/27/19 16:37 Albuterol (Duoneb) 3 ml NEB Q4H PRN PRN Reason: Wheezing Stop: 12/28/19 11:44 Last Admin: 12/01/19 03:42 Dose: 3 ml Documented by: Apixaban (Eliquis) 2.5 mg PO BID [facility] Stop: 12/27/19 20:59 Last Admin: 12/01/19 08:06 Dose: 2.5 mg Documented by: Budesonide (Pulmicort Respules) 0.5 mg INH BIDR [facility] Stop: 12/27/19 20:59 Last Admin: 12/01/19 06:48 Dose: 0.5 mg Documented by: Dextrose (Dextrose 50%) 25 - 50 ml IV UD PRN; Protocol PRN Reason: Hypoglycemia Protocol Stop: 12/27/19 18:13 Docusate Sodium (Colace) 100 mg PO BID [facility] Stop: 12/27/19 20:59 Last Admin: 12/01/19 08:12 Dose: 100 mg Documented by: Ferrous Sulfate (Feosol) 325 mg PO BIDM [facility] Stop: 12/30/19 16:59 Last Admin: 12/01/19 08:05 Dose: 325 mg Documented by: Formoterol Fumarate (Perforomist) 20 mcg INH BIDR [facility] Stop: 12/29/19 18:59 Last Admin: 12/01/19 06:47 Dose: 20 mcg Documented by: Furosemide (Lasix) 20 mg PO DAILY PRN PRN Reason: Swelling Stop: 12/27/19 18:59 Last Admin: 11/29/19 07:40 Dose: 20 mg Documented by: Glucagon (Glucagen) 1 mg SQ UD PRN; Protocol PRN Reason: Hypoglycemia Protocol Stop: 12/27/19 18:13 Glucose (Dex4 Glucose) 4 - 8 tabs PO UD PRN; Protocol PRN Reason: Hypoglycemia Protocol Stop: 12/27/19 18:13 Glucose (Glucose 40%) 15 - 30 gm PO UD PRN; Protocol PRN Reason: Hypoglycemia Protocol Stop: 12/27/19 18:13 Diltiazem HCl 125 mg/ Dextrose 125 mls @ 10 mls/hr IV .[id number] [facility]; Protocol Stop: 12/27/19 15:14 Last Admin: 12/01/19 11:46 Dose: 10 mg/hr, 10 mls/hr Documented by: Insulin Aspart (Novolog Flexpen) 0 units SC TID@1130,1630,2100 [facility]; Protocol Stop: 12/01/19 23:59 Last Admin: 12/01/19 11:52 Dose: 4 units Documented by: Insulin Aspart (Novolog Flexpen) 0 units SC DAILY@0730 [facility]; Protocol Stop: 12/30/19 07:29 Last Admin: 12/01/19 08:08 Dose: 7 units Documented by: Insulin Aspart (Novolog Flexpen) 0 units SC TID@1130,1630,2100 [facility]; Protocol Stop: 01/01/20 11:29 Levalbuterol HCl (Xopenex 1.25mg/3ml Neb) 1.25 mg INH Q4R PRN PRN Reason: shortness of breath Stop: 12/27/19 18:13 Magnesium Hydroxide (Milk Of Magnesia) 30 ml PO Q12H PRN PRN Reason: Constipation Stop: 12/27/19 16:37 Miscellaneous (Carbohydrates For Hypoglycemia) 15 - 30 gm PO UD PRN PRN Reason: Hypoglycemia Protocol Stop: 12/27/19 18:13 Miscellaneous Information (Consult Glycemic Management Pharmacy) 1 ea N/A UD PRN; Protocol PRN Reason: Consult Stop: 12/27/19 18:24 Montelukast Sodium (Singulair) 10 mg PO QAM [facility] Stop: 12/28/19 08:59 Last Admin: 12/01/19 08:05 Dose: 10 mg Documented by: Nitroglycerin (Nitrostat) 0.4 mg SL UD PRN PRN Reason: Chest Pain Stop: 12/27/19 16:37 Pantoprazole Sodium (Protonix) 40 mg PO HS [facility] Stop: 12/27/19 20:59 Last Admin: 11/30/19 21:23 Dose: 40 mg Documented by: Polyethylene Glycol (Miralax Powder Packet) 17 gm PO DAILY PRN PRN Reason: Constipation Stop: 12/27/19 16:37 Polyethylene Glycol (Miralax Powder Packet) 17 gm PO DAILY [facility] Stop: 12/28/19 08:59 Last Admin: 12/01/19 08:12 Dose: 17 gm Documented by: Prednisone (Prednisone) 40 mg PO DAILY [facility] Stop: 01/01/20 08:59 Sennosides (Senokot) 8.6 mg PO QDL [facility] Stop: 12/28/19 11:29 Last Admin: 12/01/19 11:53 Dose: 8.6 mg Documented by: Sertraline HCl (Zoloft) 50 mg PO QAM [facility] Stop: 12/28/19 08:59 Last Admin: 12/01/19 08:06 Dose: 50 mg Documented by: Sotalol HCl (Betapace) 120 mg PO BID [facility] Stop: 12/31/19 20:59 Tramadol HCl (Ultram) 50 mg PO Q6 PRN PRN Reason: Pain Stop: 12/27/19 18:13 Last Admin: 12/01/19 00:22 Dose: 50 mg Documented by: Vitamin D (Vitamin D3) 5,000 units PO QAM [facility] Stop: 12/28/19 08:59 Last Admin: 12/01/19 08:06 Dose: 5,000 units Documented by:
[2019-12-01] MEDS ORDERED: dilTIAZem HCL 30 MG TAB PO ONE (16:27)
[2019-12-01] MEDS: PANTOprazole 40 MG TAB PO SCH (20:57)
[2019-12-02] MEDS: ALBUT/IPRATROP 3MG/0.5MG NEB 3 ML VIAL NEB PRN ×3 (02:45→13:56)
[2019-12-02 06:42] LABS: BUN Creatinine Ratio 34.7 (10-20); Calcium 8.2 mg/dl (8.5-10.1); Creatinine Clr Calc Pharmacy 59.2 ml/min; Est GFR (Non-African American) 81.1; Potassium 4.2 mmol/L (3.5-5.1)
[2019-12-02] MEDS: FORMOTEROL 20 MCG/2 ML VIAL INH SCH ×2 (07:06→19:10)
[2019-12-02] MEDS: BUDESONIDE 0.5 MG/2 ML VIAL (PULMICORT) INH SCH ×2 (07:06→19:10)
[2019-12-02] MEDS: DOCUSATE SODIUM 100 MG CAP PO SCH ×2 (08:00→21:41)
[2019-12-02] MEDS: FERROUS SULFATE 325 MG TAB PO SCH ×2 (08:00→16:52)
[2019-12-02] MEDS: APIXABAN 2.5 MG TAB PO SCH ×2 (08:00→21:22)
[2019-12-02] MEDS: SOTALOL HCL 80 MG TAB PO SCH ×2 (08:01→21:20)
[2019-12-02] MEDS: CHOLECALCIFEROL 1,000 UNITS 25 MCG TAB PO SCH (08:02)
[2019-12-02] MEDS: MONTELUKAST SODIUM 10 MG TABLET PO SCH (08:03)
[2019-12-02] MEDS: SERTRALINE HCL 50 MG TABLET PO SCH (08:03)
[2019-12-02] MEDS: POLYETHYLENE (MIRALAX) 17 GM PACK PO SCH (08:04)
[2019-12-02] MEDS ORDERED: predniSONE 20 MG TAB PO SCH (09:00)
[2019-12-02] MEDS ORDERED: NovoLIN-N (NPH) PER UNIT CHARGE SQ SCH (09:00)
--- NOTE | 2019-12-02 09:16 | Cardiology Progress Note ---
Date of Service December 02, 2019 Assessment & Plan (1) Acute hypoxemic respiratory failure: Patient continues to improve from pulm standpoint Patient now significantly improved clinically Will defer further management to our pulmonary colleagues (2) Status asthmaticus: (3) Pneumonitis: (4) Acute hyperkalemia: Improved (5) Hypomagnesemia: Improved (6) Acute exacerbation of chronic obstructive pulmonary disease: (7) Atrial fibrillation with RVR: Patient converted to NSR on 12/02/19 at 7:06 AM. Continue Sotalol 120 mg BID (Dose was increased yesterday) Repeat EKG this morning now that she is in NSR D/C IV diltiazem after current bag running. Consider PO dose on discharge if HR allows. Continue Eliquis. Case discussed with Dr. Paige Admission and Anticipated Discharge Date Admission Date: November 27, 2019 Supervising Physician Co-Signing Physician Notes Supervising Physician Attestation: I have personally performed a history and physical examination on the patient. I agree with the physician visitor information assistant's findings and plan as documented with the following additions. Subjective: Patient is a little bit confused and agitated today compared to yesterday. She has reverted to sinus rhythm. At the time she was reassessed by the undersigned at approximately 1:30 PM, her diltiazem infusion has been discontinued. Monitor reveals ongoing sinus rhythm in the 60s, having converted just after 7 A M this morning 12/02/2019. Exam: Coarse breath sounds bilaterally Data: EKG performed at 10:15 AM revealed sinus rhythm at 64 bpm, QT interval stable at 476 ms on sotalol. Age-indeterminate anterior infarction pattern noted with poor R wave progression in the anterior precordial leads, T wave inversions noted. Historically, she has had ST changes that of, gone in the past based on review of EKG tracings from her January 2019 admission. Assessment and Plan: Paroxysmal atrial fibrillation Acute asthma exacerbation -Continue sotalol, 120 mg twice daily. -Resume diltiazem which he was on prior to this hospital stay. For now start 30 mg 3 times daily of short acting diltiazem, and if she tolerates it well, will transition back to long-acting diltiazem. She had previously been on diltiazem CD 240 mg daily. Her prior to hospital-treatment with metoprolol succinate has been discontinued. -Continue Eliquis 2.5 mg twice daily. -Per outpatient cardiology notes, the 2.5 mg dose has been selected due to her age, frailty, and baseline anemia. She is over 80 years old, however her weight is over 60 kg, and her creatinine has historically been less than 1.5. DVT prophylaxis: She is on full anticoagulation dose Eliquis. Bill Paige, DO Subjective Patient reports increased wheezing this morning, but improved after AM meds. De nies chest pain. Denies orthopnea, PND or edema. No dizziness or palpitations. She is requesting discharge today if possible Per telemetry review, at 7:06 AM patient converted to NSR. Review of Systems Review of Systems: All systems reviewed & are unremarkable except as noted in HPI & below Physical Exam Constitutional: WD/WN, vitals as above + thin; no acute distress Respiratory: no labored breathing Auscultation: + diminished lung sounds and + wheezes (faint scattered wheeze b/l) Cardiovascular: RRR, no murmur, no edema Vessels: no JVD Extremities: no edema Gastrointestinal (Abdomen): normal bowel sounds, soft, nontender, no hepatosplenomegaly Musculoskeletal: no cyanosis or clubbing, extremities motor strength 5/5 Neurologic: PERRL, EOMI, accommodation nl, no face palsy, no dysarthria Psychiatric: A+Ox3, euthymic affect Results & Data ([facility]) Vital Signs (Past 12 Hours) Vital Signs Temp Pulse Pulse Pulse Resp BP Pulse Ox 12/02/19 07:20 37.0 C 65 24 158/81 H 3 L 12/02/19 07:08 64 22 97 12/02/19 04:55 36.8 C 101 H 22 121/71 99 12/02/19 02:45 100 H 23 97 12/01/19 23:27 36.9 C 85 22 111/75 98 12/01/19 23:00 85 Laboratory Results 12/02/19 12/02/19 12/01/19 Range/Units 07:57 05:57 20:12 Sodium 137 (136-145) mmol/L Potassium 4.2 (3.5-5.1) mmol/L Chloride 102 (98-107) mmol/L Carbon Dioxide 30 (21-32) mmol/L Anion Gap 5.0 (3-11) BUN 24 H (7-18) mg/dl Creatinine 0.69 (0.6-1.2) mg/dl Est Cr Clr Drug Dosing 59.2 ml/min Est GFR ( Amer) 94.0 Est GFR (Non-Af Amer) 81.1 BUN/Creatinine Ratio 34.7 H (10-20) Glucose 119 H (70-99) mg/dl POC Glucose 102 H 225 H (70-99) mg/dl Calcium 8.2 L (8.5-10.1) mg/dl 12/01/19 Range/Units 16:18 Sodium (136-145) mmol/L Potassium (3.5-5.1) mmol/L Chloride (98-107) mmol/L Carbon Dioxide (21-32) mmol/L Anion Gap (3-11) BUN (7-18) mg/dl Creatinine (0.6-1.2) mg/dl Est Cr Clr Drug Dosing ml/min Est GFR ( Amer) Est GFR (Non-Af Amer) BUN/Creatinine Ratio (10-20) Glucose (70-99) mg/dl POC Glucose 214 H (70-99) mg/dl Calcium (8.5-10.1) mg/dl Diagnostic Findings Telemetry reviewed: Patient converted to NSR at 7:06 AM this morning. Currently NSR with HR's ranging 60-70 bpm EKG this AM: Afib with borderline ventricular rates. QT/QTc difficult to measure due to afib and tachycardia Medications Administered Current Inpatient Medications Acetaminophen (Tylenol) 650 mg PO Q4H PRN PRN Reason: Pain or Fever Stop: 12/27/19 16:37 Al Hydrox/Mg Hydrox/Simethicone (Maalox) 15 ml PO Q4H PRN PRN Reason: Dyspepsia Stop: 12/27/19 16:37 Albuterol (Duoneb) 3 ml NEB Q4H PRN PRN Reason: Wheezing Stop: 12/28/19 11:44 Last Admin: 12/02/19 02:45 Dose: 3 ml Documented by: Apixaban (Eliquis) 2.5 mg PO BID [facility] Stop: 12/27/19 20:59 Last Admin: 12/02/19 08:00 Dose: 2.5 mg Documented by: Budesonide (Pulmicort Respules) 0.5 mg INH BIDR [facility] Stop: 12/27/19 20:59 Last Admin: 12/02/19 07:06 Dose: 0.5 mg Documented by: Dextrose (Dextrose 50%) 25 - 50 ml IV UD PRN; Protocol PRN Reason: Hypoglycemia Protocol Stop: 12/27/19 18:13 Docusate Sodium (Colace) 100 mg PO BID [facility] Stop: 12/27/19 20:59 Last Admin: 12/02/19 08:00 Dose: 100 mg Documented by: Ferrous Sulfate (Feosol) 325 mg PO BIDM [facility] Stop: 12/30/19 16:59 Last Admin: 12/02/19 08:00 Dose: 325 mg Documented by: Formoterol Fumarate (Perforomist) 20 mcg INH BIDR [facility] Stop: 12/29/19 18:59 Last Admin: 12/02/19 07:06 Dose: 20 mcg Documented by: Furosemide (Lasix) 20 mg PO DAILY PRN PRN Reason: Swelling Stop: 12/27/19 18:59 Last Admin: 11/29/19 07:40 Dose: 20 mg Documented by: Glucagon (Glucagen) 1 mg SQ UD PRN; Protocol PRN Reason: Hypoglycemia Protocol Stop: 12/27/19 18:13 Glucose (Dex4 Glucose) 4 - 8 tabs PO UD PRN; Protocol PRN Reason: Hypoglycemia Protocol Stop: 12/27/19 18:13 Glucose (Glucose 40%) 15 - 30 gm PO UD PRN; Protocol PRN Reason: Hypoglycemia Protocol Stop: 12/27/19 18:13 Diltiazem HCl 125 mg/ Dextrose 125 mls @ 10 mls/hr IV .[id number] [facility]; Protocol Stop: 12/27/19 15:14 Last Titration: 12/02/19 07:01 Dose: 10 mg/hr, 10 mls/hr Documented by: Methylprednisolone 40 mg/ (Syringe) 0.64 mls @ 1.5 mls/min IV Q12H [facility] Stop: 01/01/20 07:59 Insulin Aspart (Novolog Flexpen) 0 units SC DAILY@0730 [facility]; Protocol Stop: 12/30/19 07:29 Last Admin: 12/01/19 08:08 Dose: 7 units Documented by: Insulin Aspart (Novolog Flexpen) 0 units SC TID@1130,1630,2100 [facility]; Protocol Stop: 01/01/20 11:29 Insulin Human NPH (Novolin-N (Nph) Per Unit Charge) 20 units SQ TODAY@0900 [facility] Stop: 01/01/20 08:59 Levalbuterol HCl (Xopenex 1.25mg/3ml Neb) 1.25 mg INH Q4R PRN PRN Reason: shortness of breath Stop: 12/27/19 18:13 Magnesium Hydroxide (Milk Of Magnesia) 30 ml PO Q12H PRN PRN Reason: Constipation Stop: 12/27/19 16:37 Miscellaneous (Carbohydrates For Hypoglycemia) 15 - 30 gm PO UD PRN PRN Reason: Hypoglycemia Protocol Stop: 12/27/19 18:13 Miscellaneous Information (Consult Glycemic Management Pharmacy) 1 ea N/A UD PRN; Protocol PRN Reason: Consult Stop: 12/27/19 18:24 Montelukast Sodium (Singulair) 10 mg PO QAM [facility] Stop: 12/28/19 08:59 Last Admin: 12/02/19 08:03 Dose: 10 mg Documented by: Nitroglycerin (Nitrostat) 0.4 mg SL UD PRN PRN Reason: Chest Pain Stop: 12/27/19 16:37 Pantoprazole Sodium (Protonix) 40 mg PO HS [facility] Stop: 12/27/19 20:59 Last Admin: 12/01/19 20:57 Dose: 40 mg Documented by: Polyethylene Glycol (Miralax Powder Packet) 17 gm PO DAILY PRN PRN Reason: Constipation Stop: 12/27/19 16:37 Polyethylene Glycol (Miralax Powder Packet) 17 gm PO DAILY [facility] Stop: 12/28/19 08:59 Last Admin: 12/02/19 08:04 Dose: 17 gm Documented by: Sennosides (Senokot) 8.6 mg PO QDL [facility] Stop: 12/28/19 11:29 Last Admin: 12/01/19 11:53 Dose: 8.6 mg Documented by: Sertraline HCl (Zoloft) 50 mg PO QAM [facility] Stop: 12/28/19 08:59 Last Admin: 12/02/19 08:03 Dose: 50 mg Documented by: Sotalol HCl (Betapace) 120 mg PO BID [facility] Stop: 12/31/19 20:59 Last Admin: 12/02/19 08:01 Dose: 120 mg Documented by: Tramadol HCl (Ultram) 50 mg PO Q6 PRN PRN Reason: Pain Stop: 12/27/19 18:13 Last Admin: 12/01/19 23:00 Dose: 50 mg Documented by: Vitamin D (Vitamin D3) 5,000 units PO QAM [facility] Stop: 12/28/19 08:59 Last Admin: 12/02/19 08:02 Dose: 5,000 units Documented by:
[2019-12-02] MEDS: methylPREDNISolone 40 MG in SYRINGE 0 ML IV SCH ×2 (09:29→21:19)
[2019-12-02] MEDS: INSULIN ASPART 100 UNITS/ML 3 ML PEN SC SCH ×4 (09:36→21:26)
--- NOTE | 2019-12-02 09:53 | Hospitalist Progress Note ---
Date of Service December 02, 2019 Assessment & Plan (1) Toxic effect of fumes: She was exposed to fumes of Lysol for about half an hour continuously Presented to ER with increasing shortness of breath and wheezing Presented with acute respiratory failure with hypoxia secondary to asthma/COPD e xacerbation and which is due to exposure to toxic fumes of Lysol Has been getting nebulized bronchodilators, intravenous steroid and oxygen Appreciate pulmonary input and recommendation CT scan of the chest showed:1. Mildly progressive left and to a lesser extent right pleural effusion. 2. Prominent pulmonary vasculature suggesting a developing component of congestive failure. Received s dose of intravenous Lasix of 40 mg Clinically a lot better Received 20 of intravenous Lasix -11/29/2019 The patient will benefit from use of Trilogy at home as per pulmonary She could not tolerate BiPAP last night and does not really want to use Triology as an outpatient, but after discussing today with her, she is willing to try it again saturations maintained with continued use of nasal cannula oxygen, patient had some increased work of breathing this morning (2) Acute respiratory failure with hypoxia: As above (3) Pneumonitis: Doubt any infection (4) COPD with exacerbation: Has exacerbation without any infection Continue steroid and nebulized bronchodilators Management as per pulmonary (5) Atrial fibrillation with rapid ventricular response: Presenting hypoxemia may have contributed rapid atrial fibrillation Continue apixaban for stroke prophylaxis, [id number] 3 Continue diltiazem drip, metoprolol tartrate 25 mg every 6 hours Cardiology consult-appreciate input and recommendation Echocardiogram: Atrial fibrillation, normal LV chamber size and wall thickness, EF 55 to 60%, no segmental LV wall motion abnormalities, aortic valve sclerosis mild without significant stenosis and mild left atrial enlargement Patient was to undergo DARIA/cardioversion secondary to recurrent PAF 2 weeks ago; however, returned to NSR Has been switched to sotalol Reverted to sinus rhythm this morning on 11/30/2019 Went back to atrial fibrillation with RVR and IV Cardizem drip has been started Converted to normal sinus rhythm this morning, December 01 (6) Hypomagnesemia: Replace, to receive 2 g mag sulfate in ED add 1 g magnesium ordered for a total of 3 g Repeat @ 8pm and in a.m. Daughter discussed recurrent hypomagnesemia and if she would benefit from oral supplementation as outpatient She has not been taking Lasix, but she does take daily omeprazole Monitor magnesium on daily basis, consider oral supplementation as outpatient Magnesium level is corrected (7) Acute hyperkalemia: K 5.5, Na 133 not on amy/arb, or potassium supplements receiving calcium gluconate 1g and d5 in ED IVF 75cc/hr, low K diet Has been diuresing with Lasix as tolerated Potassium noted to be low at 3.0 and will give supplement and repeat in the morning Potassium level is corrected (8) T2DM (type 2 diabetes mellitus): last a1c 6.2 09/2019 Hold metformin Lantus/NovoLog per protocol Place glycemic pharmacy consult due to anticipate hyperglycemia in setting of steroid use (9) HTN (hypertension): Bp stable continue metoprolol and diltiazem (10) Anemia: H/H 8.6 and 29.8 Microcytic hypochromic indicies check iron panel-Low Iron Will start Feso4 Hemoglobin remains stable at 8.6 as of 12/01/2019 (11) DVT prophylaxis: apixaban Disposition: admit to tele Follow up: PCP Dr. Torre upon discharge The daughter was updated by Dr. Contreras Admission and Anticipated Discharge Date Admission Date: November 27, 2019 Subjective Paged this morning that patient had increased work of breathing. Per nursing staff may have been due to anxiety. Patient declined using BiPAP. Switch her back to IV Solu-Medrol this morning. Currently she is lying in bed, in no acute distress, however she still continues to have somewhat increased work of breathing. She states she feels better now after her morning medications were given. Discussed BiPAP/trilogy, patient thinks that she can try again to use it as needed. Patient denies any fevers, chills, chest pain, palpitations, abdominal pain, nausea or vomiting. At 7 AM patient converted to NSR. Review of Systems Review of Systems: All systems reviewed and are unremarkable except as noted below Respiratory: + dyspnea, + dyspnea on exertion and + wheezing; no cough, no chest congestion and no hemoptysis Cardiovascular: + dyspnea at rest and + dyspnea on exertion; no chest pain and no palpitations Physical Exam Physical Exam: Physical Exam: Elderly female lying in bed, in no acute distress, with some increased work of breathing, she does speak in full sentences, and currently using nasal cannula Constitutional: well developed, well nourished, + mild acute distress (Minimal shortness of breath at rest), + ill appearing and + thin Eyes: PERRL, conjunctivae normal, anicteric sclerae ENMT: external ear and nose normal, oropharynx normal Neck: trachea midline, no thyromegaly Respiratory: + respiratory distress (Minimal distress at rest), + mild labored breathing Auscultation: + diminished lung sounds (Very poor air entry); mild expiratory wheezes Cardiovascular: Rate/Rhythm: + regular Extremities: no edema Gastrointestinal (Abdomen): Inspection/Auscultation: abdomen normal to inspection and normal bowel sounds Percussion/Palpation: abdomen soft; abdomen nontender Musculoskeletal: No acute arthritis involving any joints, moves extremities spontaneously Skin: Has generalized bruising Neurologic: moves all extremities; no focal motor deficits Alert, awake and oriented x3 Results & Data Results & Data ([facility]) Vital Signs (Past 12 Hours) Vital Signs Temp Pulse Pulse Pulse Resp BP Pulse Ox 12/02/19 08:00 42 L 12/02/19 07:20 37.0 C 65 24 158/81 H 3 L 12/02/19 07:08 64 22 97 12/02/19 04:55 36.8 C 101 H 22 121/71 99 12/02/19 02:45 100 H 23 97 12/01/19 23:27 36.9 C 85 22 111/75 98 12/01/19 23:00 85 Laboratory Results 12/02/19 12/02/19 12/01/19 Range/Units 07:57 05:57 20:12 Sodium 137 (136-145) mmol/L Potassium 4.2 (3.5-5.1) mmol/L Chloride 102 (98-107) mmol/L Carbon Dioxide 30 (21-32) mmol/L Anion Gap 5.0 (3-11) BUN 24 H (7-18) mg/dl Creatinine 0.69 (0.6-1.2) mg/dl Est Cr Clr Drug Dosing 59.2 ml/min Est GFR ( Amer) 94.0 Est GFR (Non-Af Amer) 81.1 BUN/Creatinine Ratio 34.7 H (10-20) Glucose 119 H (70-99) mg/dl POC Glucose 102 H 225 H (70-99) mg/dl Calcium 8.2 L (8.5-10.1) mg/dl 12/01/19 Range/Units 16:18 Sodium (136-145) mmol/L Potassium (3.5-5.1) mmol/L Chloride (98-107) mmol/L Carbon Dioxide (21-32) mmol/L Anion Gap (3-11) BUN (7-18) mg/dl Creatinine (0.6-1.2) mg/dl Est Cr Clr Drug Dosing ml/min Est GFR ( Amer) Est GFR (Non-Af Amer) BUN/Creatinine Ratio (10-20) Glucose (70-99) mg/dl POC Glucose 214 H (70-99) mg/dl Calcium (8.5-10.1) mg/dl Medications Administered Current Inpatient Medications Acetaminophen (Tylenol) 650 mg PO Q4H PRN PRN Reason: Pain or Fever Stop: 12/27/19 16:37 Al Hydrox/Mg Hydrox/Simethicone (Maalox) 15 ml PO Q4H PRN PRN Reason: Dyspepsia Stop: 12/27/19 16:37 Albuterol (Duoneb) 3 ml NEB Q4H PRN PRN Reason: Wheezing Stop: 12/28/19 11:44 Last Admin: 12/02/19 02:45 Dose: 3 ml Documented by: Apixaban (Eliquis) 2.5 mg PO BID [facility] Stop: 12/27/19 20:59 Last Admin: 12/02/19 08:00 Dose: 2.5 mg Documented by: Budesonide (Pulmicort Respules) 0.5 mg INH BIDR [facility] Stop: 12/27/19 20:59 Last Admin: 12/02/19 07:06 Dose: 0.5 mg Documented by: Dextrose (Dextrose 50%) 25 - 50 ml IV UD PRN; Protocol PRN Reason: Hypoglycemia Protocol Stop: 12/27/19 18:13 Diltiazem HCl (Diltiazem Hcl 30 Mg Tab) 30 mg PO TID [facility] Stop: 01/01/20 13:59 Docusate Sodium (Colace) 100 mg PO BID [facility] Stop: 12/27/19 20:59 Last Admin: 12/02/19 08:00 Dose: 100 mg Documented by: Ferrous Sulfate (Feosol) 325 mg PO BIDM [facility] Stop: 12/30/19 16:59 Last Admin: 12/02/19 08:00 Dose: 325 mg Documented by: Formoterol Fumarate (Perforomist) 20 mcg INH BIDR JULIANNE Stop: 12/29/19 18:59 Last Admin: 12/02/19 07:06 Dose: 20 mcg Documented by: Furosemide (Lasix) 20 mg PO DAILY PRN PRN Reason: Swelling Stop: 12/27/19 18:59 Last Admin: 11/29/19 07:40 Dose: 20 mg Documented by: Glucagon (Glucagen) 1 mg SQ UD PRN; Protocol PRN Reason: Hypoglycemia Protocol Stop: 12/27/19 18:13 Glucose (Dex4 Glucose) 4 - 8 tabs PO UD PRN; Protocol PRN Reason: Hypoglycemia Protocol Stop: 12/27/19 18:13 Glucose (Glucose 40%) 15 - 30 gm PO UD PRN; Protocol PRN Reason: Hypoglycemia Protocol Stop: 12/27/19 18:13 Diltiazem HCl 125 mg/ Dextrose 125 mls @ 10 mls/hr IV .[id number] JULIANNE; Protocol Stop: 12/27/19 15:14 Last Titration: 12/02/19 07:01 Dose: 10 mg/hr, 10 mls/hr Documented by: Methylprednisolone 40 mg/ (Syringe) 0.64 mls @ 1.5 mls/min IV Q12H JULIANNE Stop: 01/01/20 07:59 Last Admin: 12/02/19 09:29 Dose: 1.5 mls/min Documented by: Insulin Aspart (Novolog Flexpen) 0 units SC DAILY@0730 JULIANNE; Protocol Stop: 12/30/19 07:29 Last Admin: 12/02/19 09:36 Dose: Not Given Documented by: Insulin Aspart (Novolog Flexpen) 0 units SC TID@1130,1630,2100 JULIANNE; Protocol Stop: 01/01/20 11:29 Insulin Human NPH (Novolin-N (Nph) Per Unit Charge) 20 units SQ TODAY@0900 JULIANNE Stop: 01/01/20 08:59 Levalbuterol HCl (Xopenex 1.25mg/3ml Neb) 1.25 mg INH Q4R PRN PRN Reason: shortness of breath Stop: 12/27/19 18:13 Magnesium Hydroxide (Milk Of Magnesia) 30 ml PO Q12H PRN PRN Reason: Constipation Stop: 12/27/19 16:37 Miscellaneous (Carbohydrates For Hypoglycemia) 15 - 30 gm PO UD PRN PRN Reason: Hypoglycemia Protocol Stop: 12/27/19 18:13 Miscellaneous Information (Consult Glycemic Management Pharmacy) 1 ea N/A UD VT N; Protocol PRN Reason: Consult Stop: 12/27/19 18:24 Montelukast Sodium (Singulair) 10 mg PO QAM JULIANNE Stop: 12/28/19 08:59 Last Admin: 12/02/19 08:03 Dose: 10 mg Documented by: Nitroglycerin (Nitrostat) 0.4 mg SL UD PRN PRN Reason: Chest Pain Stop: 12/27/19 16:37 Pantoprazole Sodium (Protonix) 40 mg PO HS JULIANNE Stop: 12/27/19 20:59 Last Admin: 12/01/19 20:57 Dose: 40 mg Documented by: Polyethylene Glycol (Miralax Powder Packet) 17 gm PO DAILY PRN PRN Reason: Constipation Stop: 12/27/19 16:37 Polyethylene Glycol (Miralax Powder Packet) 17 gm PO DAILY JULIANNE Stop: 12/28/19 08:59 Last Admin: 12/02/19 08:04 Dose: 17 gm Documented by: Sennosides (Senokot) 8.6 mg PO QDL [facility] Stop: 12/28/19 11:29 Last Admin: 12/01/19 11:53 Dose: 8.6 mg Documented by: Sertraline HCl (Zoloft) 50 mg PO QAM JULIANNE Stop: 12/28/19 08:59 Last Admin: 12/02/19 08:03 Dose: 50 mg Documented by: Sotalol HCl (Betapace) 120 mg PO BID [facility] Stop: 12/31/19 20:59 Last Admin: 12/02/19 08:01 Dose: 120 mg Documented by: Tramadol HCl (Ultram) 50 mg PO Q6 PRN PRN Reason: Pain Stop: 12/27/19 18:13 Last Admin: 12/01/19 23:00 Dose: 50 mg Documented by: Vitamin D (Vitamin D3) 5,000 units PO QAM JULIANEN Stop: 12/28/19 08:59 Last Admin: 12/02/19 08:02 Dose: 5,000 units Documented by:
[2019-12-02] MEDS: TRAMADOL HCL 50 MG TABLET PO PRN (12:57)
[2019-12-02] MEDS: SENNA 8.6 MG TAB PO SCH (12:58)
[2019-12-02] MEDS: dilTIAZem HCL 30 MG TAB PO SCH ×2 (15:15→21:25)
[2019-12-02] MEDS ORDERED: STAT IV Infusion **Titration per Protocol STA (18:29)
[2019-12-02] MEDS ORDERED: dilTIAZem HCL 125 MG in DEXTROSE 5% 100 ML IV SCH (18:35)
[2019-12-02] MEDS ORDERED: ONDANSETRON 2 MG OD TAB PO PRN (18:50)
[2019-12-02] MEDS: ONDANSETRON INJ 2 MG/ML 2 ML VIAL ONE ×2 (18:56→19:08)
[2019-12-02] MEDS ORDERED: ONDANSETRON INJ 2 MG/ML 2 ML VIAL IV PRN (19:00)
[2019-12-02] MEDS: PANTOprazole 40 MG TAB PO SCH (21:23)
[2019-12-02] MEDS: INSULIN HUMAN NPH SC SCH (21:33)
[2019-12-03] MEDS: ALBUT/IPRATROP 3MG/0.5MG NEB 3 ML VIAL NEB PRN ×2 (05:30→17:28)
--- NOTE | 2019-12-03 06:13 | Electrocardiogram Report ---
Test Reason : Blood Pressure : / mmHG Vent. Rate : 099 BPM Atrial Rate : 000 BPM P-R Int : 000 ms QRS Dur : 086 ms QT Int : 390 ms P-R-T Axes : 000 -02 074 degrees QTc Int : 500 ms Atrial fibrillation with premature ventricular or aberrantly conducted complexes Possible Anterior infarct (cited on or before 30-NOV-2019) Nonspecific T wave abnormality Abnormal ECG When compared with ECG of 01-DEC-2019 07:19, Premature ventricular complexes are now Present Confirmed by Niko Clemente ([id number]) on 12/03/2019 6:13:42 AM Referred By: REFERRED SELF Confirmed By:Niko Clemente
--- NOTE | 2019-12-03 06:23 | Electrocardiogram Report ---
Test Reason : Blood Pressure : / mmHG Vent. Rate : 060 BPM Atrial Rate : 060 BPM P-R Int : 164 ms QRS Dur : 090 ms QT Int : 476 ms P-R-T Axes : 051 -13 195 degrees QTc Int : 476 ms Normal sinus rhythm Anterior infarct (cited on or before 30-NOV-2019) Abnormal ECG When compared with ECG of 02-DEC-2019 06:43, Sinus rhythm has replaced Atrial fibrillation Vent. rate has decreased BY 39 BPM Nonspecific T wave abnormality, improved in Lateral leads T wave inversion more evident in Anterior leads Confirmed by Niko Clemente ([id number]) on 12/03/2019 6:23:47 AM Referred By: REFERRED SELF Confirmed By:Niko Clemente
[2019-12-03] MEDS: BUDESONIDE 0.5 MG/2 ML VIAL (PULMICORT) INH SCH ×2 (07:15→19:27)
[2019-12-03] MEDS: FORMOTEROL 20 MCG/2 ML VIAL INH SCH ×2 (07:15→19:27)
[2019-12-03] MEDS: INSULIN ASPART 100 UNITS/ML 3 ML PEN SC SCH ×4 (07:39→22:30)
[2019-12-03] MEDS: INSULIN HUMAN NPH SC SCH (07:40)
[2019-12-03 07:45] LABS: Calcium 8.4 mg/dl (8.5-10.1); Creatinine Clr Calc Pharmacy 65.2 ml/min; Est GFR (African American) 96.3; Est GFR (Non-African American) 83.1; Magnesium 1.8 mg/dl (1.8-2.4); Phosphorus 3.2 mg/dl (2.5-4.9); Potassium 4.3 mmol/L (3.5-5.1)
[2019-12-03] MEDS ORDERED: MAGNESIUM SULFATE / D5W 1 GM/100 ML BAG IV ONE (07:53)
--- NOTE | 2019-12-03 07:55 | Hospitalist Progress Note ---
Date of Service December 03, 2019 Assessment & Plan (1) Toxic effect of fumes: She was exposed to fumes of Lysol for about half an hour continuously Presented to ER with increasing shortness of breath and wheezing Presented with acute respiratory failure with hypoxia secondary to asthma/COPD e xacerbation and which is due to exposure to toxic fumes of Lysol Has been getting nebulized bronchodilators, intravenous steroid and oxygen Appreciate pulmonary input and recommendation CT scan of the chest showed:1. Mildly progressive left and to a lesser extent right pleural effusion. 2. Prominent pulmonary vasculature suggesting a developing component of congestive failure. Received s dose of intravenous Lasix of 40 mg Clinically a lot better Received 20 of intravenous Lasix -11/29/2019 The patient will benefit from use of Trilogy at home as per pulmonary She could not tolerate BiPAP initially and does not really want to use Triology as an outpatient, but after discussing with her, she is willing to try it again, currently using bipap saturations maintained with continued use of nasal cannula oxygen, patient had some increased work of breathing yesterday morning (2) Acute respiratory failure with hypoxia: As above (3) Pneumonitis: Doubt any infection (4) COPD with exacerbation: Has exacerbation without any infection Continue steroid and nebulized bronchodilators Management as per pulmonary (5) Atrial fibrillation with rapid ventricular response: Presenting hypoxemia may have contributed rapid atrial fibrillation Continue apixaban for stroke prophylaxis, [id number] 3 Continued diltiazem drip, metoprolol tartrate 25 mg every 6 hours Cardiology consult-appreciate input and recommendation Echocardiogram: Atrial fibrillation, normal LV chamber size and wall thickness, EF 55 to 60%, no segmental LV wall motion abnormalities, aortic valve sclerosis mild without significant stenosis and mild left atrial enlargement Patient was to undergo DARIA/cardioversion secondary to recurrent PAF 2 weeks ago; however, returned to NSR Has been switched to sotalol Reverted to sinus rhythm on 11/30/2019 Went back to atrial fibrillation with RVR and IV Cardizem drip has been started Converted to normal sinus rhythm December 01, then in the evening back to A. fib, and then again back to normal sinus Currently on sotalol 120 twice daily and diltiazem 30 mg 3 times daily, plan to switch back to long-acting Cardizem 240 daily as she was previously on, if she can tolerate (6) Hypomagnesemia: Replace, to receive 2 g mag sulfate in ED add 1 g magnesium ordered for a total of 3 g Daughter discussed recurrent hypomagnesemia and if she would benefit from oral supplementation as outpatient She has not been taking Lasix, but she does take daily omeprazole Monitor magnesium on daily basis, consider oral supplementation as outpatient Magnesium level is corrected (7) Acute hyperkalemia: K 5.5, Na 133 not on amy/arb, or potassium supplements receiving calcium gluconate 1g and d5 in ED IVF 75cc/hr, low K diet Has been diuresing with Lasix as tolerated Potassium noted to be low at 3.0 and will give supplement and repeat in the morning Potassium level is corrected (8) T2DM (type 2 diabetes mellitus): last a1c 6.2 09/2019 Hold metformin Lantus/NovoLog per protocol Place glycemic pharmacy consult due to anticipate hyperglycemia in setting of steroid use (9) HTN (hypertension): Bp stable continue metoprolol and diltiazem (10) Anemia: H/H 8.6 and 29.8 Microcytic hypochromic indicies check iron panel-Low Iron Will start Feso4 Hemoglobin remains stable at 8.6 as of 12/01/2019 (11) DVT prophylaxis: apixaban Disposition: admit to tele Follow up: PCP Dr. Torre upon discharge The daughter was updated by Dr. Contreras Admission and Anticipated Discharge Date Admission Date: November 27, 2019 Subjective Patient agrees to use BiPAP intermittently and currently she is also on BiPAP. She is lying in bed, she is comfortable. Yesterday her breathing was more labored, as she was declining BiPAP. Last evening went again to A. fib, then again back to normal sinus. Cardiology following. Currently she is lying in bed, in no acute distress. Denies any fevers, chills, chest pain, abdominal pain, however she does complain of constipation. Plan to use trilogy at home, as needed and at bedtime. Review of Systems Review of Systems: All systems reviewed and are unremarkable except as noted below Respiratory: + dyspnea, + dyspnea on exertion and + wheezing; no cough, no chest congestion and no hemoptysis Cardiovascular: + dyspnea at rest and + dyspnea on exertion; no chest pain and no palpitations Physical Exam Physical Exam: Physical Exam: Elderly female lying in bed, in no acute distress, currently using BiPAP Constitutional: well developed, well nourished, + ill appearing and + thin Eyes: PERRL, conjunctivae normal, anicteric sclerae ENMT: external ear and nose normal, oropharynx normal Neck: trachea midline, no thyromegaly Respiratory: Somewhat coarse breath sounds noted bilaterally, currently patient is using BiPAP Cardiovascular: Rate/Rhythm: + regular Extremities: no edema Gastrointestinal (Abdomen): Inspection/Auscultation: abdomen normal to inspection and normal bowel sounds Percussion/Palpation: abdomen soft; abdomen nontender Musculoskeletal: No acute arthritis involving any joints, moves extremities spontaneously Skin: Has generalized bruising Neurologic: moves all extremities; no focal motor deficits Alert, awake and oriented x3 Results & Data Results & Data ([facility]) Vital Signs (Past 12 Hours) Vital Signs Temp Pulse Pulse Resp BP Pulse Ox 12/03/19 07:25 60 20 96 12/03/19 07:18 62 25 H 96 12/03/19 07:17 36.4 C L 61 21 132/78 97 12/03/19 05:30 62 18 92 12/03/19 04:35 37.0 C 64 24 129/74 94 12/03/19 00:17 37.0 C 64 19 136/74 92 12/02/19 23:37 64 12/02/19 23:21 132/73 12/02/19 22:50 63 21 98 Laboratory Results 12/03/19 12/03/19 12/03/19 Range/Units 07:10 07:09 06:30 Sodium 137 (136-145) mmol/L Potassium 4.3 (3.5-5.1) mmol/L Chloride 100 (98-107) mmol/L Carbon Dioxide 31 (21-32) mmol/L Anion Gap 6.0 (3-11) BUN 22 H (7-18) mg/dl Creatinine 0.64 (0.6-1.2) mg/dl Est Cr Clr Drug Dosing 65.2 ml/min Est GFR ( Amer) 96.3 Est GFR (Non-Af Amer) 83.1 BUN/Creatinine Ratio 34.0 H (10-20) Glucose 65 L (70-99) mg/dl POC Glucose 74 75 (70-99) mg/dl Calcium 8.4 L (8.5-10.1) mg/dl Phosphorus 3.2 (2.5-4.9) mg/dl Magnesium 1.8 (1.8-2.4) mg/dl 12/02/19 12/02/19 12/02/19 Range/Units 20:05 16:02 11:16 Sodium (136-145) mmol/L Potassium (3.5-5.1) mmol/L Chloride (98-107) mmol/L Carbon Dioxide (21-32) mmol/L Anion Gap (3-11) BUN (7-18) mg/dl Creatinine (0.6-1.2) mg/dl Est Cr Clr Drug Dosing ml/min Est GFR ( Amer) Est GFR (Non-Af Amer) BUN/Creatinine Ratio (10-20) Glucose (70-99) mg/dl POC Glucose 250 H 185 H 169 H (70-99) mg/dl Calcium (8.5-10.1) mg/dl Phosphorus (2.5-4.9) mg/dl Magnesium (1.8-2.4) mg/dl 12/02/19 Range/Units 07:57 Sodium (136-145) mmol/L Potassium (3.5-5.1) mmol/L Chloride (98-107) mmol/L Carbon Dioxide (21-32) mmol/L Anion Gap (3-11) BUN (7-18) mg/dl Creatinine (0.6-1.2) mg/dl Est Cr Clr Drug Dosing ml/min Est GFR ( Amer) Est GFR (Non-Af Amer) BUN/Creatinine Ratio (10-20) Glucose (70-99) mg/dl POC Glucose 102 H (70-99) mg/dl Calcium (8.5-10.1) mg/dl Phosphorus (2.5-4.9) mg/dl Magnesium (1.8-2.4) mg/dl Medications Administered Current Inpatient Medications Acetaminophen (Tylenol) 650 mg PO Q4H PRN PRN Reason: Pain or Fever Stop: 12/27/19 16:37 Al Hydrox/Mg Hydrox/Simethicone (Maalox) 15 ml PO Q4H PRN PRN Reason: Dyspepsia Stop: 12/27/19 16:37 Albuterol (Duoneb) 3 ml NEB Q4H PRN PRN Reason: Wheezing Stop: 12/28/19 11:44 Last Admin: 12/03/19 05:30 Dose: 3 ml Documented by: Apixaban (Eliquis) 2.5 mg PO BID [facility] Stop: 12/27/19 20:59 Last Admin: 12/02/19 21:22 Dose: 2.5 mg Documented by: Budesonide (Pulmicort Respules) 0.5 mg INH BIDR [facility] Stop: 12/27/19 20:59 Last Admin: 12/03/19 07:15 Dose: 0.5 mg Documented by: Dextrose (Dextrose 50%) 25 - 50 ml IV UD PRN; Protocol PRN Reason: Hypoglycemia Protocol Stop: 12/27/19 18:13 Diltiazem HCl (Diltiazem Hcl 30 Mg Tab) 30 mg PO TID [facility] Stop: 01/01/20 13:59 Last Admin: 12/02/19 21:25 Dose: Not Given Documented by: Docusate Sodium (Colace) 100 mg PO BID [facility] Stop: 12/27/19 20:59 Last Admin: 12/02/19 21:41 Dose: 100 mg Documented by: Ferrous Sulfate (Feosol) 325 mg PO BIDM [facility] Stop: 12/30/19 16:59 Last Admin: 12/02/19 16:52 Dose: 325 mg Documented by: Formoterol Fumarate (Perforomist) 20 mcg INH BIDR [facility] Stop: 12/29/19 18:59 Last Admin: 12/03/19 07:15 Dose: 20 mcg Documented by: Furosemide (Lasix) 20 mg PO DAILY PRN PRN Reason: Swelling Stop: 12/27/19 18:59 Last Admin: 11/29/19 07:40 Dose: 20 mg Documented by: Glucagon (Glucagen) 1 mg SQ UD PRN; Protocol PRN Reason: Hypoglycemia Protocol Stop: 12/27/19 18:13 Glucose (Dex4 Glucose) 4 - 8 tabs PO UD PRN; Protocol PRN Reason: Hypoglycemia Protocol Stop: 12/27/19 18:13 Glucose (Glucose 40%) 15 - 30 gm PO UD PRN; Protocol PRN Reason: Hypoglycemia Protocol Stop: 12/27/19 18:13 Diltiazem HCl 125 mg/ Dextrose 125 mls @ 5 mls/hr IV .Q24H [facility]; Protocol Stop: 01/01/20 18:34 Last Titration: 12/03/19 07:06 Dose: 5 mg/hr, 5 mls/hr Documented by: Magnesium Sulfate/Dextrose (Magnesium Sulfate / D5w) 1 gm in 100 mls @ 50 mls/hr IV ONE ONE Stop: 12/03/19 09:52 Insulin Aspart (Novolog Flexpen) 0 units SC DAILY@0730 [facility]; Protocol Stop: 12/30/19 07:29 Last Admin: 12/03/19 07:39 Dose: Not Given Documented by: Insulin Aspart (Novolog Flexpen) 0 units SC TID@1130,1630,2100 [facility]; Protocol Stop: 01/01/20 11:29 Last Admin: 12/02/19 21:26 Dose: 4 units Documented by: Insulin Human NPH (Insulin Human Nph) 15 units SC BID@0800,2000 [facility] Stop: 01/01/20 19:59 Last Admin: 12/03/19 07:40 Dose: Not Given Documented by: Levalbuterol HCl (Xopenex 1.25mg/3ml Neb) 1.25 mg INH Q4R PRN PRN Reason: shortness of breath Stop: 12/27/19 18:13 Magnesium Hydroxide (Milk Of Magnesia) 30 ml PO Q12H PRN PRN Reason: Constipation Stop: 12/27/19 16:37 Miscellaneous (Carbohydrates For Hypoglycemia) 15 - 30 gm PO UD PRN PRN Reason: Hypoglycemia Protocol Stop: 12/27/19 18:13 Miscellaneous Information (Consult Glycemic Management Pharmacy) 1 ea N/A UD PRN; Protocol PRN Reason: Consult Stop: 12/27/19 18:24 Montelukast Sodium (Singulair) 10 mg PO [facility] Stop: 12/28/19 08:59 Last Admin: 12/02/19 08:03 Dose: 10 mg Documented by: Nitroglycerin (Nitrostat) 0.4 mg SL UD PRN PRN Reason: Chest Pain Stop: 12/27/19 16:37 Ondansetron HCl (Ondansetron 2 Mg Od Tab) 2 mg PO Q6H PRN PRN Reason: Nausea Stop: 01/01/20 18:49 Ondansetron HCl (Ondansetron Inj 2 Mg/Ml 2 Ml Vial) 2 mg IV Q4H PRN PRN Reason: Nausea Stop: 01/01/20 18:59 Pantoprazole Sodium (Protonix) 40 mg PO [facility] Stop: 12/27/19 20:59 Last Admin: 12/02/19 21:23 Dose: 40 mg Documented by: Polyethylene Glycol (Miralax Powder Packet) 17 gm PO DAILY PRN PRN Reason: Constipation Stop: 12/27/19 16:37 Polyethylene Glycol (Miralax Powder Packet) 17 gm PO DAILY [facility] Stop: 12/28/19 08:59 Last Admin: 12/02/19 08:04 Dose: 17 gm Documented by: Prednisone (Prednisone 20 Mg Tab) 40 mg PO QAM [facility] Stop: 01/02/20 08:59 Sennosides (Senokot) 8.6 mg PO QDL [facility] Stop: 12/28/19 11:29 Last Admin: 12/02/19 12:58 Dose: 8.6 mg Documented by: Sertraline HCl (Zoloft) 50 mg PO QAM [facility] Stop: 12/28/19 08:59 Last Admin: 12/02/19 08:03 Dose: 50 mg Documented by: Sotalol HCl (Betapace) 120 mg PO BID [facility] Stop: 12/31/19 20:59 Last Admin: 12/02/19 21:20 Dose: 120 mg Documented by: Tramadol HCl (Tramadol Hcl 50 Mg Tablet) 50 mg PO Q6 PRN PRN Reason: Pain Stop: 12/27/19 18:13 Last Admin: 12/02/19 12:57 Dose: 50 mg Documented by: Vitamin D (Vitamin D3) [facility] Stop: 12/28/19 08:59 Last Admin: 12/02/19 08:02 Dose: 5,000 units Documented by:
[2019-12-03] MEDS ORDERED: bisacodyL 10 MG SUPP PR STA (09:04)
[2019-12-03] MEDS ORDERED: FUROSEMIDE 20 MG TAB PO SCH (09:15)
[2019-12-03] MEDS: predniSONE 20 MG TAB PO SCH (09:32)
[2019-12-03] MEDS: FERROUS SULFATE 325 MG TAB PO SCH (09:33)
[2019-12-03] MEDS: SOTALOL HCL 80 MG TAB PO SCH ×2 (09:33→22:34)
[2019-12-03] MEDS: APIXABAN 2.5 MG TAB PO SCH ×2 (09:33→22:31)
[2019-12-03] MEDS: CHOLECALCIFEROL 1,000 UNITS 25 MCG TAB PO SCH (09:33)
[2019-12-03] MEDS: dilTIAZem HCL 30 MG TAB PO SCH (09:33)
[2019-12-03] MEDS: SERTRALINE HCL 50 MG TABLET PO SCH (09:34)
[2019-12-03] MEDS: MONTELUKAST SODIUM 10 MG TABLET PO SCH (09:34)
[2019-12-03] MEDS: POLYETHYLENE (MIRALAX) 17 GM PACK PO SCH (09:39)
[2019-12-03] MEDS: DOCUSATE SODIUM 100 MG CAP PO SCH ×2 (10:47→22:38)
[2019-12-03] MEDS: SENNA 8.6 MG TAB PO SCH (10:47)
--- NOTE | 2019-12-03 10:54 | Cardiology Progress Note ---
Date of Service December 03, 2019 Assessment & Plan (1) Acute hypoxemic respiratory failure: Patient continues to improve from pulm standpoint Will defer further management to our pulmonary colleagues (2) Status asthmaticus: (3) Pneumonitis: (4) Acute hyperkalemia: Improved (5) Hypomagnesemia: Improved (6) Acute exacerbation of chronic obstructive pulmonary disease: (7) Atrial fibrillation with RVR: Patient continues to have episodes of paroxysmal atrial fibrillation despite sotalol titration to 120 mg twice daily. Will add diltiazem 180 milligrams extended release to be started this morning in place of short acting diltiazem. EKG this morning while patient was in normal sinus rhythm demonstrated stable QT/QTc Continue Eliquis. Case discussed with Dr. Marie. Will follow. Admission and Anticipated Discharge Date Admission Date: November 27, 2019 Supervising Physician Co-Signing Physician Notes Patient seen and personally examined on service date 12/03/2019 Still with paroxysmal atrial fibrillation but clinically improving Medications being adjusted, heart rate better control Continue current therapies with assessment as above Subjective Patient reports interval improvement in her shortness of breath this morning compared to yesterday. Wheezing improving. No dizziness, syncope or near syncope. No sense of palpitations. No chest pain. She had recurrent atrial fibrillation last night lasting approximately 5 hours. She was in normal sinus rhythm overnight until around 9 AM when she reverted back to atrial fibrillation. She received her morning meds around this time. Review of Systems Review of Systems: All systems reviewed & are unremarkable except as noted in HPI & below Physical Exam Constitutional: WD/WN, vitals as above + thin; no acute distress Respiratory: no labored breathing Auscultation: + diminished lung sounds and + wheezes (faint scattered wheeze b/l) Cardiovascular: RRR, no murmur, no edema Rate/Rhythm: + irregularly irregular Vessels: no JVD Extremities: no edema Gastrointestinal (Abdomen): normal bowel sounds, soft, nontender, no hepatosplenomegaly Musculoskeletal: no cyanosis or clubbing, extremities motor strength 5/5 Neurologic: PERRL, EOMI, accommodation nl, no face palsy, no dysarthria Psychiatric: A+Ox3, euthymic affect Results & Data ([facility]) Vital Signs (Past 12 Hours) Vital Signs Temp Pulse Pulse Resp BP Pulse Ox 12/03/19 07:25 60 20 96 12/03/19 07:18 62 25 H 96 12/03/19 07:17 36.4 C L 61 21 132/78 97 12/03/19 05:30 62 18 92 12/03/19 04:35 37.0 C 64 24 129/74 94 12/03/19 00:17 37.0 C 64 19 136/74 92 12/02/19 23:37 64 12/02/19 23:21 132/73 12/02/19 22:50 63 21 98 Laboratory Results 12/03/19 12/03/19 12/03/19 Range/Units 07:10 07:09 06:30 Sodium 137 (136-145) mmol/L Potassium 4.3 (3.5-5.1) mmol/L Chloride 100 (98-107) mmol/L Carbon Dioxide 31 (21-32) mmol/L Anion Gap 6.0 (3-11) BUN 22 H (7-18) mg/dl Creatinine 0.64 (0.6-1.2) mg/dl Est Cr Clr Drug Dosing 65.2 ml/min Est GFR ( Amer) 96.3 Est GFR (Non-Af Amer) 83.1 BUN/Creatinine Ratio 34.0 H (10-20) Glucose 65 L (70-99) mg/dl POC Glucose 74 75 (70-99) mg/dl Calcium 8.4 L (8.5-10.1) mg/dl Phosphorus 3.2 (2.5-4.9) mg/dl Magnesium 1.8 (1.8-2.4) mg/dl 12/02/19 12/02/19 12/02/19 Range/Units 20:05 16:02 11:16 Sodium (136-145) mmol/L Potassium (3.5-5.1) mmol/L Chloride (98-107) mmol/L Carbon Dioxide (21-32) mmol/L Anion Gap (3-11) BUN (7-18) mg/dl Creatinine (0.6-1.2) mg/dl Est Cr Clr Drug Dosing ml/min Est GFR ( Amer) Est GFR (Non-Af Amer) BUN/Creatinine Ratio (10-20) Glucose (70-99) mg/dl POC Glucose 250 H 185 H 169 H (70-99) mg/dl Calcium (8.5-10.1) mg/dl Phosphorus (2.5-4.9) mg/dl Magnesium (1.8-2.4) mg/dl Diagnostic Findings Telemetry reviewed: Currently atrial fibrillation with mildly elevated ventricular response ranging 100 to 110 bpm. She was previously in normal sinus rhythm from 11 PM on 12/01 to around 9 AM on 12/02. EKG this morning around 7 AM demonstrated normal sinus rhythm at 60 bpm, QT/QTc at 476 ms Medications Administered Current Inpatient Medications Acetaminophen (Tylenol) 650 mg PO Q4H PRN PRN Reason: Pain or Fever Stop: 12/27/19 16:37 Al Hydrox/Mg Hydrox/Simethicone (Maalox) 15 ml PO Q4H PRN PRN Reason: Dyspepsia Stop: 12/27/19 16:37 Albuterol (Duoneb) 3 ml NEB Q4H PRN PRN Reason: Wheezing Stop: 12/28/19 11:44 Last Admin: 12/03/19 05:30 Dose: 3 ml Documented by: Apixaban (Eliquis) 2.5 mg PO BID [facility] Stop: 12/27/19 20:59 Last Admin: 12/03/19 09:33 Dose: 2.5 mg Documented by: Budesonide (Pulmicort Respules) 0.5 mg INH BIDR [facility] Stop: 12/27/19 20:59 Last Admin: 12/03/19 07:15 Dose: 0.5 mg Documented by: Dextrose (Dextrose 50%) 25 - 50 ml IV UD PRN; Protocol PRN Reason: Hypoglycemia Protocol Stop: 12/27/19 18:13 Diltiazem HCl (Diltiazem Er 180 Mg Capcr) 180 mg PO QAM [facility] Stop: 01/02/20 10:59 Docusate Sodium (Colace) 100 mg PO BID [facility] Stop: 12/27/19 20:59 Last Admin: 12/03/19 10:47 Dose: 100 mg Documented by: Ferrous Sulfate (Feosol) 325 mg PO BIDM [facility] Stop: 12/30/19 16:59 Last Admin: 12/03/19 09:33 Dose: 325 mg Documented by: Formoterol Fumarate (Perforomist) 20 mcg INH BIDR [facility] Stop: 12/29/19 18:59 Last Admin: 12/03/19 07:15 Dose: 20 mcg Documented by: Furosemide (Furosemide 20 Mg Tab) 20 mg PO DAILY [facility] Stop: 01/03/20 08:59 Glucagon (Glucagen) 1 mg SQ UD PRN; Protocol PRN Reason: Hypoglycemia Protocol Stop: 12/27/19 18:13 Glucose (Dex4 Glucose) 4 - 8 tabs PO UD PRN; Protocol PRN Reason: Hypoglycemia Protocol Stop: 12/27/19 18:13 Glucose (Glucose 40%) 15 - 30 gm PO UD PRN; Protocol PRN Reason: Hypoglycemia Protocol Stop: 12/27/19 18:13 Insulin Aspart (Insulin Aspart 100 Units/Ml 3 Ml Pen) 0 units SC [facility]; Protocol Stop: 01/02/20 11:29 Levalbuterol HCl (Xopenex 1.25mg/3ml Neb) 1.25 mg INH Q4R PRN PRN Reason: shortness of breath Stop: 12/27/19 18:13 Magnesium Hydroxide (Milk Of Magnesia) 30 ml PO Q12H PRN PRN Reason: Constipation Stop: 12/27/19 16:37 Magnesium Oxide (Magnesium Oxide 400 Mg Tab) 400 mg PO [facility] Stop: 01/03/20 08:59 Miscellaneous (Carbohydrates For Hypoglycemia) 15 - 30 gm PO UD PRN PRN Reason: Hypoglycemia Protocol Stop: 12/27/19 18:13 Miscellaneous Information (Consult Glycemic Management Pharmacy) 1 ea N/A UD PRN; Protocol PRN Reason: Consult Stop: 12/27/19 18:24 Montelukast Sodium (Singulair) 10 mg PO [facility] Stop: 12/28/19 08:59 Last Admin: 12/03/19 09:34 Dose: 10 mg Documented by: Nitroglycerin (Nitrostat) 0.4 mg SL UD PRN PRN Reason: Chest Pain Stop: 12/27/19 16:37 Ondansetron HCl (Ondansetron 2 Mg Od Tab) 2 mg PO Q6H PRN PRN Reason: Nausea Stop: 01/01/20 18:49 Ondansetron HCl (Ondansetron Inj 2 Mg/Ml 2 Ml Vial) 2 mg IV Q4H PRN PRN Reason: Nausea Stop: 01/01/20 18:59 Pantoprazole Sodium (Protonix) 40 mg PO [facility] Stop: 12/27/19 20:59 Last Admin: 12/02/19 21:23 Dose: 40 mg Documented by: Polyethylene Glycol (Miralax Powder Packet) 17 gm PO DAILY PRN PRN Reason: Constipation Stop: 12/27/19 16:37 Polyethylene Glycol (Miralax Powder Packet) 17 gm PO DAILY [facility] Stop: 12/28/19 08:59 Last Admin: 12/03/19 09:39 Dose: 17 gm Documented by: Prednisone (Prednisone 20 Mg Tab) [facility] [place] Stop: 01/02/20 08:59 Last Admin: 12/03/19 09:32 Dose: 40 mg Documented by: Sennosides (Senokot) 8.6 mg PO QDL [facility] Stop: 12/28/19 11:29 Last Admin: 12/03/19 10:47 Dose: 8.6 mg Documented by: Sertraline HCl (Zoloft) 50 mg PO QAM [facility] Stop: 12/28/19 08:59 Last Admin: 12/03/19 09:34 Dose: 50 mg Documented by: Sotalol HCl (Betapace) 120 mg PO BID [facility] Stop: 12/31/19 20:59 Last Admin: 12/03/19 09:33 Dose: 120 mg Documented by: Tramadol HCl (Tramadol Hcl 50 Mg Tablet) 50 mg PO Q6 PRN PRN Reason: Pain Stop: 12/27/19 18:13 Last Admin: 12/02/19 12:57 Dose: 50 mg Documented by: Vitamin D (Vitamin D3) 5,000 [facility] [place] Stop: 12/28/19 08:59 Last Admin: 12/03/19 09:33 Dose: 5,000 units Documented by:
[2019-12-03] MEDS ORDERED: dilTIAZem ER 180 MG CAPCR PO SCH (11:00)
[2019-12-03] MEDS ORDERED: INSULIN HUMAN NPH SC ONE (12:00)
--- NOTE | 2019-12-03 14:16 | XRay Report ---
KUB CLINICAL HISTORY: Generalized abdominal pain. Constipation. FINDINGS: 2 AP, portable, supine abdominal radiographs are compared to study dated 07/30/2018 and bryan elated with abdominal CT dated 10/21/2019. There is a nonobstructed abdominal bowel gas pattern. Mild f ecal retention is noted in the colon. There is no evidence of intraperitoneal free air on these supin e views. Cholecystectomy clips are seen in the right upper quadrant. The skeletal structures are oste openic and appear intact. There is moderate to advanced lumbosacral spondylosis and scoliosis. A larg e calcification is again seen at the right lung base. IMPRESSION: Nonobstructed abdominal bowel gas pattern. Electronically signed by: Nolan Rudolph M.D. 12/03/2019 2:15 PM
[2019-12-03] MEDS ORDERED: LACTULOSE SYRUP 20 GM/30 ML UDC PO ONE (14:29)
--- NOTE | 2019-12-03 14:32 | Pharmacy Report ---
Pharmacy Glycemic Short Note 2 - Date of Service December 03, 2019 - Glycemic Short BSG Results (Last 24 hours): 12/02/19 12/02/19 12/03/19 16:02 20:05 06:30 Glucose 65 L POC Glucose 185 H 250 H 12/03/19 12/03/19 12/03/19 07:09 07:10 11:07 Glucose POC Glucose 75 74 241 H OUTPATIENT ANTIDIABETIC REGIMEN: * Metformin 1000 mg PO BIDM * A1c = 6.2% (10/25/2019) Risk Factors for Insulin Resistance: * Steroids: Methylprednisolone 40 mg IV Q12H tapered to prednisone 40 mg po daily starting 8 AM * IVF: diltiazem drip mixed in D5W * Diet: T2DM ASSESSMENT: 12/02 * Steroids tapered to prednisone 40 this morning * BSGs ranged from 102-250 yesterday, seems to trend upward for bedtime * Fasting slightly below goal this morning, patient received 2 doses of NPH with methylprednisolone doses, NPH held this morning, given with lunch, will be once a day with reduction in steroid * Per nursing lunch BSG elevated d/t eating lunch late in morning without informing nursing * Patient made temporarily NPO? may be ordered diet back this evening 11/30 * Steroid tapering, with first dose affected/missed starting this evening * BSG's ranged 89-141 mg/dL yesterday, with the exception of BSG of 191 mg/dL at lunch. CHO ratio at breakfast has already been tightened therefore no change needed for today. Will loosen tomorrow 2nd steroid taper, but keep breakfast parameters slightly tighter than all others * AM fasting BSG today slightly above goal range (154 mg/dL) after slight Lantus reduction yesterday. However, as steroids are tapering will continue same dose this AM but hold dose this evening. May consider transition to NPH tomorrow with initiation of prednisone po. 11/29 * Trend noted x3 days with lunch BSG significantly elevated >190 mg/dL (possibly 2nd effect of methylprednisolone admin in AM) with all other BSG's either in or below goal range * Will tighten Novolog CHO ratio with breakfast but will loosen CHO ratio for all other checks * AM fasting BSG below goal range, at 89 mg/dL. Patient received 24 units of basal insulin yesterday. Will reduce today and ongoing 11/28 * 84 yo F admitted secondary to COPD Exacerbation. Pharmacy is consulted for glycemic management. She does use chronic prednisone at home. * Patient is a well-controlled type 2 diabetic on metformin monotherapy as demonstrated by most recent A1c. * Currently receiving Solumedrol 40mg IV Q8hrs; leading to severe steroid induced hyperglycemia * Pt received 69 units of insulin over the past 24hrs * 42 units of basal (Lantus) * 27 units of bolus (NovoLog) * BSGs [id number] * Increased insulin regimen significantly yesterday prior to lunch secondary to BSG of 319/310. BSGs now slightly below goal range for inpatient targets. Will hold off on basal insulin this AM - will give with lunch. Decrease basal insulin by at least 15% * Insulin requirements will decrease as steroids are tapered. PLAN FOR INPATIENT GLYCEMIC CONTROL: Hold outpatient oral diabetes medications Basal insulin * NPH 20 units with lunch Bolus insulin * NovoLog per scale ACHS or Q6hrs while NPO * Goal Range: Low 110 mg/dL - High 140 mg/dL * Correction Factor: 25 mg/dL/unit with breakfast. 9 mg/dL/unit with all other checks * Carb ratio: 9 g CHO/unit with breakfast. 10 g CHO/unit with all other checks PLAN FOR DISCHARGE: * A1c is in target range for patient based on age/co-morbidities * No changes needed to outpatient regimen
[2019-12-03] MEDS: LACTULOSE SYRUP 20 GM/30 ML UDC PO SCH (22:29)
[2019-12-03] MEDS: PANTOprazole 40 MG TAB PO SCH (22:33)
[2019-12-04] MEDS: ALBUT/IPRATROP 3MG/0.5MG NEB 3 ML VIAL NEB PRN ×2 (05:13→11:19)
--- NOTE | 2019-12-04 06:19 | Electrocardiogram Report ---
Test Reason : Blood Pressure : / mmHG Vent. Rate : 060 BPM Atrial Rate : 060 BPM P-R Int : 168 ms QRS Dur : 088 ms QT Int : 476 ms P-R-T Axes : 012 -29 224 degrees QTc Int : 476 ms Sinus rhythm with Premature atrial complexes Low voltage QRS Septal infarct (cited on or before 30-NOV-2019) Inferior infarct T wave abnormality, consider anterior ischemia Abnormal ECG When compared with ECG of 02-DEC-2019 10:15, Premature atrial complexes are now Present Nonspecific T wave abnormality, worse in Anterolateral leads Confirmed by Niko Clemente ([id number]) on 12/04/2019 6:19:12 AM Referred By: REFERRED SELF Confirmed By:Niko Clemente
[2019-12-04] MEDS: BUDESONIDE 0.5 MG/2 ML VIAL (PULMICORT) INH SCH (07:08)
[2019-12-04] MEDS: FORMOTEROL 20 MCG/2 ML VIAL INH SCH (07:08)
[2019-12-04 07:29] LABS: BUN Creatinine Ratio 26.3 (10-20); Calcium 8.7 mg/dl (8.5-10.1); Creatinine Clr Calc Pharmacy 59.9 ml/min; Est GFR (Non-African American) 81.1; Potassium 3.9 mmol/L (3.5-5.1)
[2019-12-04] MEDS: CHOLECALCIFEROL 1,000 UNITS 25 MCG TAB PO SCH (08:22)
[2019-12-04] MEDS: LACTULOSE SYRUP 20 GM/30 ML UDC PO SCH (08:22)
[2019-12-04] MEDS: MONTELUKAST SODIUM 10 MG TABLET PO SCH (08:23)
[2019-12-04] MEDS: SERTRALINE HCL 50 MG TABLET PO SCH (08:23)
[2019-12-04] MEDS: SOTALOL HCL 80 MG TAB PO SCH (08:23)
[2019-12-04] MEDS: predniSONE 20 MG TAB PO SCH (08:23)
[2019-12-04] MEDS: INSULIN ASPART 100 UNITS/ML 3 ML PEN SC SCH ×2 (08:24→12:07)
--- NOTE | 2019-12-04 08:40 | Hospitalist Progress Note ---
Date of Service December 04, 2019 Assessment & Plan (1) Toxic effect of fumes: She was exposed to fumes of Lysol for about half an hour continuously Presented to ER with increasing shortness of breath and wheezing Presented with acute respiratory failure with hypoxia secondary to asthma/COPD e xacerbation and which is due to exposure to toxic fumes of Lysol Has been getting nebulized bronchodilators, intravenous steroid and oxygen Appreciate pulmonary input and recommendation CT scan of the chest showed:1. Mildly progressive left and to a lesser extent right pleural effusion. 2. Prominent pulmonary vasculature suggesting a developing component of congestive failure. Received s dose of intravenous Lasix of 40 mg Received 20 of intravenous Lasix - 11/29/2019 The patient will benefit from use of Trilogy at home as per pulmonary She could not tolerate BiPAP initially and does not really want to use Triology as an outpatient, but after discussing with her, she is willing to try it again saturations maintained with continued use of nasal cannula oxygen, however she would have some labored breathing previously Patient is doing much better now when she is using BiPAP intermittently and at night (2) Acute respiratory failure with hypoxia: As above (3) Pneumonitis: Doubt any infection (4) COPD with exacerbation: Has exacerbation without any infection Continue steroid and nebulized bronchodilators Management as per pulmonary (5) Atrial fibrillation with rapid ventricular response: Presenting hypoxemia may have contributed rapid atrial fibrillation Continue apixaban for stroke prophylaxis, [id number] 3 Continued diltiazem drip, metoprolol tartrate 25 mg every 6 hours Cardiology consult-appreciate input and recommendation Echocardiogram: Atrial fibrillation, normal LV chamber size and wall thickness, EF 55 to 60%, no segmental LV wall motion abnormalities, aortic valve sclerosis mild without significant stenosis and mild left atrial enlargement Patient was to undergo DARIA/cardioversion secondary to recurrent PAF 2 weeks ago; however, returned to NSR Has been switched to sotalol Reverted to sinus rhythm on 11/30/2019 Went back to atrial fibrillation with RVR and IV Cardizem drip has been started Converted to normal sinus rhythm December 01, then in the evening back to A. fib, and then again back to normal sinus Currently on sotalol 120 twice daily and Cardizem 240 daily Currently normal sinus rhythm however in A. fib earlier today, rate was well controlled though, plan to follow-up with cardiology on December 08 (6) Hypomagnesemia: Replaced and monitored She has not been taking Lasix, but she does take daily omeprazole Magnesium level is corrected (7) Acute hyperkalemia: K 5.5, Na 133 not on amy/arb, or potassium supplements received calcium gluconate 1g and d5 in ED IVF 75cc/hr, low K diet diuresed with Lasix as tolerated Potassium level is corrected (8) T2DM (type 2 diabetes mellitus): last a1c 6.2 09/2019 Hold metformin Lantus/NovoLog per protocol Place glycemic pharmacy consult due to anticipate hyperglycemia in setting of steroid use (9) HTN (hypertension): Bp stable continue metoprolol and diltiazem (10) Anemia: H/H 8.6 and 29.8 Microcytic hypochromic indicies check iron panel-Low Iron Will start Feso4 Hemoglobin remains stable at 8.6 as of 12/01/2019 Held iron suppl. d/t constipation, pt can further discuss w/ PCP (11) DVT prophylaxis: apixaban Disposition: admit to tele Follow up: PCP Dr. Torre upon discharge The daughter was updated over the phone. Admission and Anticipated Discharge Date Admission Date: November 27, 2019 Subjective Patient is currently sitting up in a chair, in no acute distress. She did have a bowel movement yesterday, and she feels much better. She is inquiring about going home. She converted again back to normal sinus rhythm, however she was in A. fib triston ier today, rate was adequately controlled. 2 step study done, patient will need 2 L of O2 at rest and with ambulation. She currently denies any chest pain, shortness of breath, palpitation, abdominal pain, nausea or vomiting. Review of Systems Review of Systems: All systems reviewed & are unremarkable except as noted in HPI & below Constitutional: no fever and no chills Respiratory: no cough and no dyspnea Cardiovascular: no chest pain and no palpitations Gastrointestinal: no abdominal pain, no nausea and no vomiting Physical Exam Physical Exam: Physical Exam: Elderly female lying in bed, in no acute distress, on 2L NC Constitutional: well developed, well nourished Eyes: PERRL, conjunctivae normal, anicteric sclerae ENMT: external ear and nose normal, oropharynx normal Neck: trachea midline, no thyromegaly Respiratory: Somewhat diminished breath sounds, no wheezing noted Cardiovascular: Rate/Rhythm: + regular Extremities: no edema Gastrointestinal (Abdomen): Inspection/Auscultation: abdomen normal to inspection and normal bowel sounds Percussion/Palpation: abdomen soft; abdomen nontender Musculoskeletal: No acute arthritis involving any joints, moves extremities spontaneously Skin: Has generalized bruising Neurologic: moves all extremities; no focal motor deficits Alert, awake and oriented x3 Results & Data Results & Data ([facility]) Vital Signs (Past 12 Hours) Vital Signs Temp Pulse Resp BP BP Pulse Ox 12/04/19 07:53 36.5 C 89 22 124/62 96 12/04/19 07:08 97 H 20 94 12/04/19 05:13 107 H 22 97 12/04/19 03:58 36.6 C 109 H 19 121/77 96 12/03/19 23:30 37 C 93 H 20 118/74 99 Laboratory Results 12/04/19 12/04/19 12/03/19 Range/Units 07:08 06:24 20:57 Sodium 136 (136-145) mmol/L Potassium 3.9 (3.5-5.1) mmol/L Chloride 98 (98-107) mmol/L Carbon Dioxide 34 H (21-32) mmol/L Anion Gap 5.0 (3-11) BUN 18 (7-18) mg/dl Creatinine 0.69 (0.6-1.2) mg/dl Est Cr Clr Drug Dosing 59.9 ml/min Est GFR ( Amer) 94.0 Est GFR (Non-Af Amer) 81.1 BUN/Creatinine Ratio 26.3 H (10-20) Glucose 80 (70-99) mg/dl POC Glucose 87 145 H (70-99) mg/dl Calcium 8.7 (8.5-10.1) mg/dl Magnesium 2.0 (1.8-2.4) mg/dl 12/03/19 12/03/19 Range/Units 16:24 11:07 Sodium (136-145) mmol/L Potassium (3.5-5.1) mmol/L Chloride (98-107) mmol/L Carbon Dioxide (21-32) mmol/L Anion Gap (3-11) BUN (7-18) mg/dl Creatinine (0.6-1.2) mg/dl Est Cr Clr Drug Dosing ml/min Est GFR ( Amer) Est GFR (Non-Af Amer) BUN/Creatinine Ratio (10-20) Glucose (70-99) mg/dl POC Glucose 79 241 H (70-99) mg/dl Calcium (8.5-10.1) mg/dl Magnesium (1.8-2.4) mg/dl Medications Administered Current Inpatient Medications Acetaminophen (Tylenol) 650 mg PO Q4H PRN PRN Reason: Pain or Fever Stop: 12/27/19 16:37 Al Hydrox/Mg Hydrox/Simethicone (Maalox) 15 ml PO Q4H PRN PRN Reason: Dyspepsia Stop: 12/27/19 16:37 Albuterol (Duoneb) 3 ml NEB Q4H PRN PRN Reason: Wheezing Stop: 12/28/19 11:44 Last Admin: 12/04/19 05:13 Dose: 3 ml Documented by: Apixaban (Eliquis) 2.5 mg PO BID [facility] Stop: 12/27/19 20:59 Last Admin: 12/03/19 22:31 Dose: 2.5 mg Documented by: Budesonide (Pulmicort Respules) 0.5 mg INH BIDR [facility] Stop: 12/27/19 20:59 Last Admin: 12/04/19 07:08 Dose: 0.5 mg Documented by: Dextrose (Dextrose 50%) 25 - 50 ml IV UD PRN; Protocol PRN Reason: Hypoglycemia Protocol Stop: 12/27/19 18:13 Diltiazem HCl (Diltiazem Er 120 Mg Capcr) 240 mg PO QAM [facility] Stop: 01/03/20 08:59 Docusate Sodium (Colace) 100 mg PO BID [facility] Stop: 12/27/19 20:59 Last Admin: 12/03/19 22:38 Dose: 100 mg Documented by: Ferrous Sulfate (Ferrous Sulfate 325 Mg Tab) 325 mg PO BIDM [facility] Stop: 12/30/19 16:59 Last Admin: 12/03/19 09:33 Dose: 325 mg Documented by: Formoterol Fumarate (Perforomist) 20 mcg INH BIDR [facility] Stop: 12/29/19 18:59 Last Admin: 12/04/19 07:08 Dose: 20 mcg Documented by: Furosemide (Furosemide 20 Mg Tab) 20 mg PO DAILY [facility] Stop: 01/03/20 08:59 Last Admin: 12/04/19 08:22 Dose: 20 mg Documented by: Glucagon (Glucagen) 1 mg SQ UD PRN; Protocol PRN Reason: Hypoglycemia Protocol Stop: 12/27/19 18:13 Glucose (Dex4 Glucose) 4 - 8 tabs PO UD PRN; Protocol PRN Reason: Hypoglycemia Protocol Stop: 12/27/19 18:13 Glucose (Glucose 40%) 15 - 30 gm PO UD PRN; Protocol PRN Reason: Hypoglycemia Protocol Stop: 12/27/19 18:13 Insulin Aspart (Insulin Aspart 100 Units/Ml 3 Ml Pen) 0 units SC [facility]; Protocol Stop: 01/02/20 11:29 Last Admin: 12/04/19 08:24 Dose: 2 units Documented by: Insulin Human NPH (Insulin Human Nph) 10 units SC TODAY@0900 ONE Stop: 12/04/19 09:01 Last Admin: 12/04/19 08:25 Dose: 10 units Documented by: Lactulose (Lactulose Syrup 20 Gm/30 Ml Udc) 20 gm PO BID [facility] Stop: 01/02/20 20:59 Last Admin: 12/04/19 08:22 Dose: 20 gm Documented by: Levalbuterol HCl (Xopenex 1.25mg/3ml Neb) 1.25 mg INH Q4R PRN PRN Reason: shortness of breath Stop: 12/27/19 18:13 Magnesium Hydroxide (Milk Of Magnesia) 30 ml PO Q12H PRN PRN Reason: Constipation Stop: 12/27/19 16:37 Magnesium Oxide (Magnesium Oxide 400 Mg Tab) 400 mg PO [facility] Stop: 01/03/20 08:59 Last Admin: 12/04/19 08:23 Dose: 400 mg Documented by: Miscellaneous (Carbohydrates For Hypoglycemia) 15 - 30 gm PO UD PRN PRN Reason: Hypoglycemia Protocol Stop: 12/27/19 18:13 Miscellaneous Information (Consult Glycemic Management Pharmacy) 1 ea N/A UD PRN; Protocol PRN Reason: Consult Stop: 12/27/19 18:24 Monteluk[facility] Sodium ([facility]) [facility] Stop: 12/28/19 08:59 Last Admin: 12/04/19 08:23 Dose: 10 mg Documented by: Nitroglycerin (Nitrostat) 0.4 mg SL UD PRN PRN Reason: Chest Pain Stop: 12/27/19 16:37 Ondansetron HCl (Ondansetron 2 Mg Od Tab) 2 mg PO Q6H PRN PRN Reason: Nausea Stop: 01/01/20 18:49 Ondansetron HCl (Ondansetron Inj 2 Mg/Ml 2 Ml Vial) 2 mg IV Q4H PRN PRN Reason: Nausea Stop: 01/01/20 18:59 Pantoprazole Sodium (Protonix) 40 mg PO HS [facility] Stop: 12/27/19 20:59 Last Admin: 12/03/19 22:33 Dose: 40 mg Documented by: Polyethylene Glycol (Miralax Powder Packet) 17 gm PO DAILY PRN PRN Reason: Constipation Stop: 12/27/19 16:37 Polyethylene Glycol (Miralax Powder Packet) 17 gm PO DAILY [facility] Stop: 12/28/19 08:59 Last Admin: 12/03/19 09:39 Dose: 17 gm Documented by: Prednisone (Prednisone 20 Mg Tab) 40 mg PO QAM [facility] Stop: 01/02/20 08:59 Last Admin: 12/04/19 08:23 Dose: 40 mg Documented by: Sennosides (Senokot) 8.6 mg PO QDL [facility] Stop: 12/28/19 11:29 Last Admin: 12/03/19 10:47 Dose: 8.6 mg Documented by: Sertraline HCl (Zoloft) 50 mg PO QAM [facility] Stop: 12/28/19 08:59 Last Admin: 12/04/19 08:23 Dose: 50 mg Documented by: Sotalol HCl (Betapace) 120 mg PO BID [facility] Stop: 12/31/19 20:59 Last Admin: 12/04/19 08:23 Dose: 120 mg Documented by: Tramadol HCl (Tramadol Hcl 50 Mg Tablet) 50 mg PO Q6 PRN PRN Reason: Pain Stop: 12/27/19 18:13 Last Admin: 12/02/19 12:57 Dose: 50 mg Documented by: Vitamin D (Vitamin D3) 5,000 units PO QAM [facility] Stop: 12/28/19 08:59 Last Admin: 12/04/19 08:22 Dose: 5,000 units Documented by:
[2019-12-04] MEDS: APIXABAN 2.5 MG TAB PO SCH (08:53)
[2019-12-04] MEDS ORDERED: MAGNESIUM OXIDE 400 MG TAB PO SCH (09:00)
[2019-12-04] MEDS ORDERED: FUROSEMIDE 20 MG TAB PO SCH (09:00)
[2019-12-04] MEDS ORDERED: INSULIN HUMAN NPH SC ONE (09:00)
[2019-12-04] MEDS ORDERED: dilTIAZem ER 120 MG CAPCR PO SCH (09:00)
[2019-12-04] MEDS: POLYETHYLENE (MIRALAX) 17 GM PACK PO SCH (10:14)
--- NOTE | 2019-12-04 10:49 | Cardiology Progress Note ---
Date of Service December 04, 2019 Assessment & Plan (1) Acute hypoxemic respiratory failure: Patient continues to improve from pulm standpoint Will defer further management to our pulmonary colleagues Recommend 2 step prior to discharge and arrange home O2 (2) Status asthmaticus: (3) Pneumonitis: (4) Acute hyperkalemia: Improved (5) Hypomagnesemia: Improved (6) Acute exacerbation of chronic obstructive pulmonary disease: (7) Atrial fibrillation with RVR: Patient remains in persistent afib on sotalol 120 mg BID. resume home dose diltiazem 240 mg daily Continue Eliquis. Hopeful as her pulm status improves and steroids weaned, she will convert spontaneously to NSR. Otherwise, she will [facility]un on 12/08 as scheduled at 9:45 at [facility] At that time, consider arranging DARIA/cardioversion if she remains in afib. Case discussed with Dr. Marie. Stable for discharge today from cardiac standpoint. Admission and Anticipated Discharge Date Admission Date: November 27, 2019 Supervising Physician Co-Signing Physician Notes Patient seen and examined, chart, medications reviewed Full assessment as above. Patient has remained in atrial fibrillation but with generally controlled ventricular response rate on current therapies No cardiac symptoms Discussed options with patient given recent clinical history of lapsing in and out of atrial fibrillation likelihood of maintaining sinus rhythm even with synchronized cardioversion currently small though will likely improve as pulmonary status improves Agree with discharge and reassessment as an outpatient Subjective Patient resting comfortably this morning. Interval improvement in her shortness of breath. No significant wheezing or cough. No chest pain. No palpitations. No dizziness, lightheadedness, syncope or near syncope. Requesting discharge today. Anxious to go home. Review of Systems Review of Systems: All systems reviewed & are unremarkable except as noted in HPI & below Physical Exam Constitutional: WD/WN, vitals as above + thin; no acute distress Respiratory: no labored breathing Auscultation: + diminished lung sounds and + wheezes (faint scattered wheeze b/l) Cardiovascular: Rate/Rhythm: + irregularly irregular Vessels: no JVD Extremities: no edema Gastrointestinal (Abdomen): normal bowel sounds, soft, nontender, no hepatosplenomegaly Musculoskeletal: no cyanosis or clubbing, extremities motor strength 5/5 Neurologic: PERRL, EOMI, accommodation nl, no face palsy, no dysarthria Psychiatric: A+Ox3, euthymic affect Results & Data ([facility]) Vital Signs (Past 12 Hours) Vital Signs Temp Pulse Resp BP BP Pulse Ox 12/04/19 07:53 36.5 C 89 22 124/62 96 12/04/19 07:08 97 H 20 94 12/04/19 05:13 107 H 22 97 12/04/19 03:58 36.6 C 109 H 19 121/77 96 12/03/19 23:30 37 C 93 H 20 118/74 99 Laboratory Results 12/04/19 12/04/19 12/03/19 Range/Units 07:08 06:24 20:57 Sodium 136 (136-145) mmol/L Potassium 3.9 (3.5-5.1) mmol/L Chloride 98 (98-107) mmol/L Carbon Dioxide 34 H (21-32) mmol/L Anion Gap 5.0 (3-11) BUN 18 (7-18) mg/dl Creatinine 0.69 (0.6-1.2) mg/dl Est Cr Clr Drug Dosing 59.9 ml/min Est GFR ( Amer) 94.0 Est GFR (Non-Af Amer) 81.1 BUN/Creatinine Ratio 26.3 H (10-20) Glucose 80 (70-99) mg/dl POC Glucose 87 145 H (70-99) mg/dl Calcium 8.7 (8.5-10.1) mg/dl Magnesium 2.0 (1.8-2.4) mg/dl 12/03/19 12/03/19 Range/Units 16:24 11:07 Sodium (136-145) mmol/L Potassium (3.5-5.1) mmol/L Chloride (98-107) mmol/L Carbon Dioxide (21-32) mmol/L Anion Gap (3-11) BUN (7-18) mg/dl Creatinine (0.6-1.2) mg/dl Est Cr Clr Drug Dosing ml/min Est GFR ( Amer) Est GFR (Non-Af Amer) BUN/Creatinine Ratio (10-20) Glucose (70-99) mg/dl POC Glucose 79 241 H (70-99) mg/dl Calcium (8.5-10.1) mg/dl Magnesium (1.8-2.4) mg/dl Diagnostic Findings Telemetry reviewed: Persistent atrial fibrillation with ventricular rates ranging 90 to 120 bpm. Medications Administered Current Inpatient Medications Acetaminophen (Tylenol) 650 mg PO Q4H PRN PRN Reason: Pain or Fever Stop: 12/27/19 16:37 Al Hydrox/Mg Hydrox/Simethicone (Maalox) 15 ml PO Q4H PRN PRN Reason: Dyspepsia Stop: 12/27/19 16:37 Albuterol (Duoneb) 3 ml NEB Q4H PRN PRN Reason: Wheezing Stop: 12/28/19 11:44 Last Admin: 12/04/19 05:13 Dose: 3 ml Documented by: Apixaban (Eliquis) 2.5 mg PO BID [facility] Stop: 12/27/19 20:59 Last Admin: 12/04/19 08:53 Dose: 2.5 mg Documented by: Budesonide (Pulmicort Respules) 0.5 mg INH BIDR [facility] Stop: 12/27/19 20:59 Last Admin: 12/04/19 07:08 Dose: 0.5 mg Documented by: Dextrose (Dextrose 50%) 25 - 50 ml IV UD PRN; Protocol PRN Reason: Hypoglycemia Protocol Stop: 12/27/19 18:13 Diltiazem HCl (Diltiazem Er 120 Mg Capcr) 240 mg PO QAM [facility] Stop: 01/03/20 08:59 Last Admin: 12/04/19 08:53 Dose: 240 mg Documented by: Docusate Sodium (Colace) 100 mg PO BID [facility] Stop: 12/27/19 20:59 Last Admin: 12/03/19 22:38 Dose: 100 mg Documented by: Ferrous Sulfate (Ferrous Sulfate 325 Mg Tab) 325 mg PO BIDM [facility] Stop: 12/30/19 16:59 Last Admin: 12/03/19 09:33 Dose: 325 mg Documented by: Formoterol Fumarate (Perforomist) 20 mcg INH BIDR [facility] Stop: 12/29/19 18:59 Last Admin: 12/04/19 07:08 Dose: 20 mcg Documented by: Furosemide (Furosemide 20 Mg Tab) 20 mg PO DAILY [facility] Stop: 01/03/20 08:59 Last Admin: 12/04/19 08:22 Dose: 20 mg Documented by: Glucagon (Glucagen) 1 mg SQ UD PRN; Protocol PRN Reason: Hypoglycemia Protocol Stop: 12/27/19 18:13 Glucose (Dex4 Glucose) 4 - 8 tabs PO UD PRN; Protocol PRN Reason: Hypoglycemia Protocol Stop: 12/27/19 18:13 Glucose (Glucose 40%) 15 - 30 gm PO UD PRN; Protocol PRN Reason: Hypoglycemia Protocol Stop: 12/27/19 18:13 Insulin Aspart (Insulin Aspart 100 Units/Ml 3 Ml Pen) 0 units SC [facility]; Protocol Stop: 01/02/20 11:29 Last Admin: 12/04/19 08:24 Dose: 2 units Documented by: Lactulose (Lactulose Syrup 20 Gm/30 Ml Udc) 20 gm PO BID [facility] Stop: 01/02/20 20:59 Last Admin: 12/04/19 08:22 Dose: 20 gm Documented by: Levalbuterol HCl (Xopenex 1.25mg/3ml Neb) 1.25 mg INH Q4R PRN PRN Reason: shortness of breath Stop: 12/27/19 18:13 Magnesium Hydroxide (Milk Of Magnesia) 30 ml PO Q12H PRN PRN Reason: Constipation Stop: 12/27/19 16:37 Magnesium Oxide (Magnesium Oxide 400 Mg Tab) 400 mg PO [facility] Stop: 01/03/20 08:59 Last Admin: 12/04/19 08:23 Dose: 400 mg Documented by: Miscellaneous (Carbohydrates For Hypoglycemia) 15 - 30 gm PO UD PRN PRN Reason: Hypoglycemia Protocol Stop: 12/27/19 18:13 Miscellaneous Information (Consult Glycemic Management Pharmacy) 1 ea N/A UD PRN; Protocol PRN Reason: Consult Stop: 12/27/19 18:24 Montelukast Sodium (Singulair) 10 mg PO [facility] Stop: 12/28/19 08:59 Last Admin: 12/04/19 08:23 Dose: 10 mg Documented by: Nitroglycerin (Nitrostat) 0.4 mg SL UD PRN PRN Reason: Chest Pain Stop: 12/27/19 16:37 Ondansetron HCl (Ondansetron 2 Mg Od Tab) 2 mg PO Q6H PRN PRN Reason: Nausea Stop: 01/01/20 18:49 Ondansetron HCl (Ondansetron Inj 2 Mg/Ml 2 Ml Vial) 2 mg IV Q4H PRN PRN Reason: Nausea Stop: 01/01/20 18:59 Pantoprazole Sodium (Protonix) 40 mg PO HS [facility] Stop: 12/27/19 20:59 Last Admin: 12/03/19 22:33 Dose: 40 mg Documented by: Polyethylene Glycol (Miralax Powder Packet) 17 gm PO DAILY PRN PRN Reason: Constipation Stop: 12/27/19 16:37 Polyethylene Glycol (Miralax Powder Packet) 17 gm PO DAILY [facility] Stop: 12/28/19 08:59 Last Admin: 12/04/19 10:14 Dose: Not Given Documented by: Prednisone (Prednisone 20 Mg Tab) 40 mg PO QAM [facility] Stop: 01/02/20 08:59 Last Admin: 12/04/19 08:23 Dose: 40 mg Documented by: Sennosides (Senokot) 8.6 mg PO QDL [facility] Stop: 12/28/19 11:29 Last Admin: 12/03/19 10:47 Dose: 8.6 mg Documented by: Sertraline HCl (Zoloft) 50 [facility] Stop: 12/28/19 08:59 Last Admin: 12/04/19 08:23 Dose: 50 mg Documented by: Sotalol HCl (Betapace) 120 mg PO BID [facility] Stop: 12/31/19 20:59 Last Admin: 12/04/19 08:23 Dose: 120 mg Documented by: Tramadol HCl (Tramadol Hcl 50 Mg Tablet) 50 mg PO Q6 PRN PRN Reason: Pain Stop: 12/27/19 18:13 Last Admin: 12/02/19 12:57 Dose: 50 mg Documented by: Vitamin D (Vitamin D3) 5,000 units PO QAM [facility] Stop: 12/28/19 08:59 Last Admin: 12/04/19 08:22 Dose: 5,000 units Documented by:
[2019-12-04] MEDS: DOCUSATE SODIUM 100 MG CAP PO SCH (11:42)
[2019-12-04] MEDS: SENNA 8.6 MG TAB PO SCH (12:07)
--- NOTE | 2019-12-04 13:46 | Pharmacy Report ---
Pharmacy Glycemic Short Note 2 - Date of Service December 04, 2019 - Glycemic Short BSG Results (Last 24 hours): 12/03/19 12/03/19 12/04/19 16:24 20:57 06:24 Glucose 80 POC Glucose 79 145 H 12/04/19 12/04/19 07:08 11:26 Glucose POC Glucose 87 103 H OUTPATIENT ANTIDIABETIC REGIMEN: * Metformin 1000 mg PO BIDM * A1c = 6.2% (10/25/2019) Risk Factors for Insulin Resistance: * Steroids: Methylprednisolone 40 mg IV Q12H tapered to prednisone 40 mg po daily starting 8 AM * IVF: diltiazem drip mixed in D5W * Diet: T2DM ASSESSMENT: 12/03: * BSGs improving, fasting this morning 87, will give small dose of NPH this morning with prednisone * Will continue current parameters 12/02 * Steroids tapered to prednisone 40 this morning * BSGs ranged from 102-250 yesterday, seems to trend upward for bedtime * Fasting slightly below goal this morning, patient received 2 doses of NPH with methylprednisolone doses, NPH held this morning, given with lunch, will be once a day with reduction in steroid * Per nursing lunch BSG elevated d/t eating lunch late in morning without informing nursing * Patient made temporarily NPO? may be ordered diet back this evening 11/30 * Steroid tapering, with first dose affected/missed starting this evening * BSG's ranged 89-141 mg/dL yesterday, with the exception of BSG of 191 mg/dL at lunch. CHO ratio at breakfast has already been tightened therefore no change needed for today. Will loosen tomorrow 2nd steroid taper, but keep breakfast parameters slightly tighter than all others * AM fasting BSG today slightly above goal range (154 mg/dL) after slight Lantus reduction yesterday. However, as steroids are tapering will continue same dose this AM but hold dose this evening. May consider transition to NPH tomorrow with initiation of prednisone po. 11/29 * Trend noted x3 days with lunch BSG significantly elevated >190 mg/dL (possibly 2nd effect of methylprednisolone admin in AM) with all other BSG's either in or below goal range * Will tighten Novolog CHO ratio with breakfast but will loosen CHO ratio for all other checks * AM fasting BSG below goal range, at 89 mg/dL. Patient received 24 units of basal insulin yesterday. Will reduce today and ongoing 11/28 * 84 yo F admitted secondary to COPD Exacerbation. Pharmacy is consulted for glycemic management. She does use chronic prednisone at home. * Patient is a well-controlled type 2 diabetic on metformin monotherapy as demonstrated by most recent A1c. * Currently receiving Solumedrol 40mg IV Q8hrs; leading to severe steroid induced hyperglycemia * Pt received 69 units of insulin over the past 24hrs * 42 units of basal (Lantus) * 27 units of bolus (NovoLog) * BSGs [id number] * Increased insulin regimen significantly yesterday prior to lunch secondary to BSG of 319/310. BSGs now slightly below goal range for inpatient targets. Will hold off on basal insulin this AM - will give with lunch. Decrease basal insulin by at least 15% * Insulin requirements will decrease as steroids are tapered. PLAN FOR INPATIENT GLYCEMIC CONTROL: Hold outpatient oral diabetes medications Basal insulin * NPH 10 units with breakfast Bolus insulin * NovoLog per scale ACHS or Q6hrs while NPO * Goal Range: Low 110 mg/dL - High 140 mg/dL * Correction Factor: 25 mg/dL/unit with breakfast. * Carb ratio: 9 g CHO/unit PLAN FOR DISCHARGE: * A1c is in target range for patient based on age/co-morbidities * No changes needed to outpatient regimen
--- NOTE | 2019-12-04 13:57 | Discharge Summary ---
Date of Service December 04, 2019 Admission HPI Per Admitting Provider This is an 84-year-old female who has significant past medical history of COPD on 2 L of O2 at bedtime, bronchiectasis, PAF anticoagulated on Eliquis, T2DM, HTN, HLD, Anemia, CKD-3, GERD, osteoporosis, spinal stenosis who presents to ED secondary to fever and ill feeling x1 day. Family member is at bedside. Patient states she was in her normal state of health until last evening around 8 PM when she was cleaning with liquid Lysol and inhaled a significant amount of fumes. After this she developed shortness of breath that persisted through the night. She continued to feel worsening chest tightness along with wheezing and a mild clear productive cough. She uses oxygen 2 L at night; however, please resolve on oxygen without significant improvement. Family member at bedside also states home nurse visited patient yesterday who also heard audible wheezing on exam. Symptoms progressed through the night and this morning she was significantly short of breath, "gasping for air." As her breathing was getting worse she felt herself developed palpitations and felt like, "her A. fib was kicking in." She took 40 mg of prednisone per her rescue kit and she took 1 dose of oral doxycycline last evening without significant improvement. Prior to arrival she also took 2 nebulizer treatments without improvement. Of significance patient had recent hospitalization 10/20-10/25 secondary to Klebsiella bacteremia and Klebsiella pneumoniae treated with appropriate antibiotics. On 11/07 she was also seen in ED and diagnosed with COPD exacerbation. Daughter on her rescue kit which included a prednisone taper and doxycycline. The symptoms improved. Also of note in regards to her atrial fibrillation she was to undergo DARIA and cardioversion by Dr. Chun. Fortunately preop EKG revealed normal sinus rhythm and she had an increase in her metoprolol to 100 mg daily. She denies any recent illness, fever, chills, sweats, lightheadedness, dizziness, syncope, chest pain, cough, hemoptysis, nausea, vomiting, abdominal pain, change in bowel or urinary habits. Up till today she had a good appetite. She does continue to live at home and is independent of ADLs. She does have home nursing. In ED patient was visibly tachypneic. She required nebulizer treatment with improvement of symptoms. Lab work notable for WBC 10.41, H&H 8.6 and 29.8 with microcytic indices, platelet 418, INR 1.1, VBG WNL, sodium 133, K5.5, BUN 25, creatinine 1.12, glucose 190, mag 1.5, AST 144, ALT 172. Chest x-ray Progressive interstitial thickening, pulmonary vascular congestion or interstitial inflammatory process noted. Admission Exam Per Admitting Provider Constitutional: WD/WN, elderly, female, tachypneic, vitals as above, NAD, sitting up in bed, pleasant, conversing easily Head: Normocephalic, Atraumatic Eyes: PERRL, conjunctivae normal, anicteric sclerae ENMT: external ear and nose normal, oropharynx normal Neck: trachea midline, no thyromegaly normal visual inspection Respiratory: Increased respiratory effort, tachypnea, bilateral expiratory wheezing, lungs clear to auscultation, no rales or rhonchi noted. no accessory muscle use Cardiovascular: IRR/IRR, 2/6 CIARA RUSB, no edema Vessels: no JVD or carotid bruit Chest: normal inspection of chest Abdomen: normal bowel sounds, soft, nontender, no hepatosplenomegaly Musculoskeletal: no cyanosis or clubbing, extremities motor strength 5/5 Skin: +ecchymosis noted to b/l lower ext, warm and dry normal turgor Neurologic: PERRL, EOMI, accommodation nl, no face palsy, no dysarthria CN's II-XI intact bilaterally and moves all extremities Psychiatric: A+Ox3, euthymic affect Lymphatic: no cervical or axillary lymphadenopathy : deferred Principal Diagnosis COPD/asthma exacerbation, A. fib with RVR Discharge Exam Physical Exam: Elderly female lying in bed, in no acute distress, on 2L NC Constitutional: well developed, well nourished Eyes: PERRL, conjunctivae normal, anicteric sclerae ENMT: external ear and nose normal, oropharynx normal Neck: trachea midline, no thyromegaly Respiratory: Somewhat diminished breath sounds, no wheezing noted Cardiovascular: Rate/Rhythm: + regular Extremities: no edema Gastrointestinal (Abdomen): Inspection/Auscultation: abdomen normal to inspection and normal bowel sounds Percussion/Palpation: abdomen soft; abdomen nontender Musculoskeletal: No acute arthritis involving any joints, moves extremities spontaneously Skin: Has generalized bruising Neurologic: moves all extremities; no focal motor deficits Alert, awake and oriented x3 Discharge Data Allergies Allergy/AdvReac Type Severity Reaction Status Date / Time Cipro Allergy Intermediate hives, Verified 04/25/17 06:31 itching ciprofloxacin Allergy Intermediate hives, Verified 11/09/19 09:32 itching amoxicillin Allergy Mild Itching Verified 11/09/19 09:32 clavulanic acid Allergy Mild Itching Verified 11/09/19 09:32 alendronate sodium AdvReac Intermediate leg pain Verified 11/09/19 09:32 levofloxacin AdvReac Intermediate leg muscle Verified 11/09/19 09:32 pain nitrofurantoin AdvReac Intermediate diarrhea Verified 11/27/19 15:46 [From Macrobid] Consultations 11/27/19 16:13 ED Decision to Admit Stat 11/27/19 16:38 Consult Cardiology Routine 11/27/19 16:41 Consult Case Management - Discharge Planning Routine 11/28/19 11:02 Consult Pulmonology Routine 11/30/19 11:22 Consult Case Management - Discharge Planning Routine Ordered Studies 11/28/19 08:00 US liver Routine IMPRESSION: 1. Unremarkable right upper quadrant abdominal ultrasound. 2. Cholecystectomy. 11/28/19 11:37 CT chest wo con Stat IMPRESSION: 1. Mildly progressive left and to a lesser extent right pleural effusion. 2. Prominent pulmonary vasculature suggesting a developing component of congestive failure. Hospital Course (1) Toxic effect of fumes: She was exposed to fumes of Lysol for about half an hour continuously Presented to ER with increasing shortness of breath and wheezing Presented with acute respiratory failure with hypoxia secondary to asthma/COPD exacerbation and which is due to exposure to toxic fumes of Lysol Has been getting nebulized bronchodilators, intravenous steroid and oxygen Appreciate pulmonary input and recommendation CT scan of the chest showed:1. Mildly progressive left and to a lesser extent right pleural effusion. 2. Prominent pulmonary vasculature suggesting a developing component of congestive failure. Received s dose of intravenous Lasix of 40 mg Received 20 of intravenous Lasix - 11/29/2019 The patient will benefit from use of Trilogy at home as per pulmonary She could not tolerate BiPAP initially and does not really want to use Triology as an outpatient, but after discussing with her, she is willing to try it again saturations maintained with continued use of nasal cannula oxygen, however she would have some labored breathing previously Patient is doing much better now when she is using BiPAP intermittently and at night (2) Acute respiratory failure with hypoxia: As above (3) Pneumonitis: Doubt any infection (4) COPD with exacerbation: Has exacerbation without any infection Continue steroid and nebulized bronchodilators Management as per pulmonary (5) Atrial fibrillation with rapid ventricular response: Presenting hypoxemia may have contributed rapid atrial fibrillation Continue apixaban for stroke prophylaxis, [id number] 3 Continued diltiazem drip, metoprolol tartrate 25 mg every 6 hours Cardiology consult-appreciate input and recommendation Echocardiogram: Atrial fibrillation, normal LV chamber size and wall thickness, EF 55 to 60%, no segmental LV wall motion abnormalities, aortic valve sclerosis mild without significant stenosis and mild left atrial enlargement Patient was to undergo DARIA/cardioversion secondary to recurrent PAF 2 weeks ago; however, returned to NSR Has been switched to sotalol Reverted to sinus rhythm on 11/30/2019 Went back to atrial fibrillation with RVR and IV Cardizem drip has been started Converted to normal sinus rhythm December 01, then in the evening back to A. fib, and then again back to normal sinus Currently on sotalol 120 twice daily and Cardizem 240 daily Currently normal sinus rhythm however in A. fib earlier today, rate was well controlled though, plan to follow-up with cardiology on December 08 (6) Hypomagnesemia: Replaced and monitored She has not been taking Lasix, but she does take daily omeprazole Magnesium level is corrected (7) Acute hyperkalemia: K 5.5, Na 133 not on amy/arb, or potassium supplements received calcium gluconate 1g and d5 in ED IVF 75cc/hr, low K diet diuresed with Lasix as tolerated Potassium level is corrected (8) T2DM (type 2 diabetes mellitus): last a1c 6.2 09/2019 Hold metformin Lantus/NovoLog per protocol Place glycemic pharmacy consult due to anticipate hyperglycemia in setting of steroid use (9) HTN (hypertension): Bp stable continue metoprolol and diltiazem (10) Anemia: H/H 8.6 and 29.8 Microcytic hypochromic indicies check iron panel-Low Iron Will start Feso4 Hemoglobin remains stable at 8.6 as of 12/01/2019 Held iron suppl. d/t constipation, pt can further discuss w/ PCP (11) DVT prophylaxis: apixaban Disposition: admit to tele Follow up: PCP Dr. Torre upon discharge and cardiology Dr. Chun The daughter was updated over the phone. Total Time Total Time Spent Total Time Spent (In Minutes): 60 Total Time Includes: Examination of the Patient, Discharge Planning, Medication Reconciliation and Communication With Other Providers Discharge Plan Discharge Items Patient Disposition: Home - Home Health Services Reason For Visit: SOB,RAPID AFIB Discharge Diagnosis: COPD/asthma exacerbation, A. fib with RVR Activity: Per Instructions section Non-emergency contact: Primary Care Provider and Rejogger Call non-emergency contact if: you have any medication questions and your symptoms worsen Follow-up/Referrals: William Chun DO [Rejogger] - 12/09/19 10:00 am ([facility] - Please arrive at 9:45 a.m. ) Mamadou Torre MD [Primary Care Provider] - 12/08/19 11:20 am (12/08/2019 11:20 AM Provider Mamadou Torre MD Department [facility] ) Diet: Heart Healthy Add Attending Provider Instructions: You were started on a new medication, sotalol 120 mg twice a day. Make sure to take this medication for atrial fibrillation. Do not take metoprolol anymore. Continue taking Cardizem 240 daily. Follow-up with your primary care doctor on December 07 and with your asl interpreter on December 08. You will need to use trilogy/breathing machine whenever you sleep, even during the day and as needed for shortness of breath. You will also need to use oxygen via nasal cannula when you are awake. You may need to follow-up with your lung doctor. Take prednisone 40 mg for next 3 days, then take your regular prednisone 10 mg daily, unless your primary care doctor decides otherwise during your follow-up visit. Pending Studies at Discharge: No Stand-Alone Forms: My [facility], Smoking Cessation Medications and DC Order Prescriptions: New sotalol 80 mg Tablet 120 mg PO BID 30 Days Qty: 90 RF: 0 prednisone 20 mg tablet 40 mg PO QAM 3 Days Qty: 6 RF: 0 Perforomist 20 mcg/2 mL solution for nebulization 2 ml inhalation BID Qty: 120 RF: 0 Continued montelukast [Singulair] 10 mg Tablet 10 mg PO QAM RF: 0 ondansetron 4 mg tablet,disintegrating 4 mg PO Q8H PRN (Reason: Nausea And Vomiting) RF: 0 albuterol sulfate [Ventolin HFA] 90 mcg/actuation Hfa Aerosol Inhaler 1 inh INHALATION QID PRN (Reason: sob) RF: 0 acetaminophen 650 mg Tablet Extended Release 650 mg PO Q12H PRN (Reason: Pain) RF: 0 (DME) Oxygen Home Liters Per Minute RF: 0 prednisone 20 mg Tablet 60 mg PO DIRECTED PRN (Reason: breathing rescue kit) RF: 0 sennosides [Senokot] 8.6 mg Tablet 8.6 mg PO QDL RF: 0 prednisone 10 mg Tablet 10 mg PO QAM RF: 0 diltiazem HCl 240 mg capsule,extended release 24hr 240 mg PO QAM RF: 0 tramadol 50 mg Tablet 50 mg PO Q6 PRN (Reason: Pain) RF: 0 metformin 1,000 mg Tablet 1,000 mg PO BID RF: 0 docusate sodium [Colace] 100 mg Capsule 100 mg PO BID RF: 0 budesonide 0.5 mg/2 mL Suspension For Nebulization 0.5 mg INHALATION BID RF: 0 furosemide [Lasix] 20 mg Tablet 20 mg PO DAILY PRN (Reason: Swelling) RF: 0 sertraline [Zoloft] 50 mg Tablet 50 mg PO QAM RF: 0 cholecalciferol (vitamin D3) [Vitamin D3] 5,000 unit Tablet 5,000 unit PO QAM RF: 0 omeprazole 20 mg Tablet,Delayed Release (Dr/Ec) 20 mg PO HS RF: 0 ipratropium-albuterol 0.5 mg-3 mg(2.5 mg base)/3 mL Solution For Nebulization 3 ml INHALATION Q6 RF: 0 polyethylene glycol 3350 [Miralax] 17 gram Powder In Packet 8.5 - 17 g PO DAILY RF: 0 Eliquis 2.5 mg tablet 2.5 mg PO BID RF: 0 Discontinued metoprolol succinate [Toprol XL] 25 mg tablet extended release 24 hr 100 mg PO QAM RF: 0 doxycycline hyclate 100 mg Capsule 100 mg PO BID PRN (Reason: COPD Rescue Kit) RF: 0 Discharge Orders: Discharge Order (Routine); Ordered 12/04/19 Ordered By: Jimbo Dunlap Admission Data Admit Date/Time: 11/27/19 16:38 Attending Provider: Jimbo Dunlap Admit Provider: Emily Watson Primary Care Provider: Mamadou Torre Other Providers: Emily Watson. ; Jcarlos Hudson ; Bill Paige ; Bairon Marie ; William Chun ; Ignacio Oneal ; Rojelio Farias ; Jazmin Aviles ; Sydnee Aceves ; Sandip Russell ; [facility] ; Darshan Calderon ; Hayden Contreras
--- NOTE | 2019-12-05 07:06 | Electrocardiogram Report ---
Test Reason : Blood Pressure : / mmHG Vent. Rate : 093 BPM Atrial Rate : 091 BPM P-R Int : 000 ms QRS Dur : 088 ms QT Int : 432 ms P-R-T Axes : 000 -27 232 degrees QTc Int : 537 ms Atrial fibrillation Low voltage QRS Septal infarct (cited on or before 30-NOV-2019) Anterior infarct T wave abnormality, consider anterior ischemia Prolonged QT Abnormal ECG When compared with ECG of 03-DEC-2019 07:03, Atrial fibrillation has replaced Sinus rhythm Vent. rate has increased BY 33 BPM Anterior infarct is now Present Confirmed by Niko Clemente ([id number]) on 12/05/2019 7:05:31 AM Referred By: REFERRED SELF Confirmed By:Niko Clemente
== END 2019-12-04 15:30 | disposition home health service (06) | DRG 189 ==
LOC: ED 14:37 → 2S 16:38 → SUATTDRO 16:38 → 2S 17:56 → 2E 11-28 17:11